=== PATIENT | male | born 1955 | race Caucasian/White ===

== ENCOUNTER 2016-10-28 18:45 | Inpatient (IN) | payer OTHER ==
[~2016-10-28] VITALS: Ht 182.9 cm; Wt 211.1 kg
[~2016-10-28 18:45] MED LIST: ALBUAER2 INH; DILT30TA PO; FURO80TA63 PO; GLYCDRO6 OPR; LATA0.009 OPB; LEVO1TAB35 PO; METO25TA56 PO; METO5TAB25 PO; OXYC-106 PO; POTA20TA16 PO; SYMIN160 INH
--- NOTE | 2016-10-28 21:22 | DIAGNOSTIC IMAGING REPORT ---
CHEST ONE VIEW PORTABLE CLINICAL HISTORY: Chest Pain dyspnea COMPARISON STUDY: 07/15/2016 FINDINGS: Stable cardiomegaly stable pleural parenchymal scarring left hemithorax. Increased prominence of pulmonary vasculature. Tracheostomy tube in position. IMPRESSION: Developing congestive heart failure. This is superimposed upon chronic pleural and parenchymal change Electronically signed by: Yan Escalera M.D. 10/28/2016 9:21 PM Dictated Date/Time: 10/28/2016 9:19 PM
[2016-10-28] MEDS ORDERED: XLTOPS OPB (22:04)
[2016-10-28 22:50] LABS: BASO % 0.2 %; BASO ABS # 0.02 K/uL (0-0.2); COMPLETE YES; EOS % 0.4 %; HEMATOCRIT 37.8 % (42-52); LYMPH ABS # 1.26 K/uL (1.2-3.4); MEAN CELL VOLUME 86.7 fL (80-100); MEAN CORPUSCULAR HEMOGLOBIN 30.3 pg (25-34); MEAN CORPUSCULAR HGB CONC 34.9 g/dl (32-36); MEAN PLATELET VOLUME 10.5 fL (7.4-10.4); MONO % 12.5 %; NEUT % 71.9 %; PLATELET COUNT 138 K/uL (130-400); RED BLOOD COUNT 4.36 M/uL (4.7-6.1); WHITE BLOOD COUNT 9.02 K/uL (4.8-10.8)
[2016-10-28 23:07] LABS: BUN/CREATININE RATIO 22.4 (10-20); CALCIUM 8.8 mg/dl (8.5-10.1); CREATININE 0.93 mg/dl (0.60-1.40); MAGNESIUM 1.7 mg/dl (1.8-2.4); POTASSIUM 3.3 mmol/L (3.5-5.1)
[2016-10-28 23:11] LABS: CKMB/CK RATIO 1.9 (0-3.0)
[2016-10-28] MEDS ORDERED: FUROSEMIDE 40 MG/4 ML VIAL IV STA (23:14)
--- NOTE | 2016-10-28 23:17 | EMERGENCY ROOM VISIT NOTE ---
History Report prepared by Shine: Lucy Wilhelm Under the Supervision of: Dr. Yassine Rios M.D. First contact with patient: 20:47 Chief Complaint: RESPIRATORY PROBLEMS Stated Complaint: TROUBLE BREATHING,RAPID WEIGHT GAIN LAST 3 DAYS Nursing Triage Summary: on friday pt weighed 430 pounds today pt weighed 455 bilateral legs are swollen, cellulitis with drainage hx chf pt reports "feels like im drowning" pt has trach, coughing green sputum, recent course antibiotics for lung infection History of Present Illness The patient is a 61 year old male who presents to the Emergency Room with complaints of worsening respiratory problems that started 3 days ago. His breathing is worse whenever he tried to lie flat. He is also experiencing chest pressure and states that he "feels like he is drowning." The patient states that he has gained 25 lbs over the past 3 days. The patient is experiencing bilateral lower extremity edema, but his right leg is worse than his left. His right leg is also erythematous and seeping. He states that he just finished a 20 day course of antibiotics and steroids because of an infection in his lungs. The patient states that he occasionally has a productive cough with green sputum. The patient last experienced congestive heart failure in 2008. He states that his symptoms feel similar to when he experienced congestive heart failure in the past. The patient is on Xarelto and he states that he is taking his medications are prescribed. Source of History: patient Onset: 3 days Position: chest Quality: other (respiratory problems) Timing: worsening Modifying Factors (Worsening): other (lying flat) Associated Symptoms: + chest pain (pressure), + cough (productive with green sputum) Note: gained 25 lbs in 3 days, bilateral lower extremity edema, right leg erythema, right leg is seeping Review of Systems See HPI for pertinent positives & negatives. A total of 10 systems reviewed and were otherwise negative. Past Medical & Surgical Medical Problems: (1) Cellulitis (2) Cellulitis and abscess of leg (3) COPD (chronic obstructive pulmonary disease) (4) COPD exacerbation (5) Diabetes (6) Dyspnea (7) Fever chills (8) HCAP (healthcare-associated pneumonia) (9) Hemoptysis (10) Hyperlipidemia (11) Morbid obesity (12) PNA (pneumonia) (13) Sepsis due to Streptococcus pneumoniae (14) SOB (shortness of breath) Surgical Problems: (1) Tracheostomy in place Family History Diabetes mellitus Heart disease Social History Smoking Status: Former Smoker Drug Use: none Marital Status: Occupation Status: unemployed Current/Historical Medications Scheduled Aspirin (Aspirin 81), 81 MG PO DAILY Atorvastatin (Lipitor), 80 MG PO DAILY Bacitracin (Topical) (Bacitracin), 1 APPLN TOP DAILY Beclomethasone Dipropionate (N (Qnasl), 1 SPRY SIMBA DAILY Budesonide (Pulmicort Respules 0.5MG/2ML), 2 ML INH BID Desloratadine (Clarinex), 5 MG PO DAILY Diltiazem Hcl (Cardizem), 30 MG PO QID Dorzolamide Hcl (Trusopt Oph), 1 DROPS OP BID Fish Oil ([place]-3), 1 CAP PO DAILY Furosemide (Lasix), 80 MG PO BID Glucagon (Glucagon Emergency Kit), 1 DOSE INJ UD Guaifenesin (Mucinex Maximum Strength), 1,200 MG PO BID Insulin Aspart (Novolog Flexpen), 81 UNITS SQ QAM Insulin Aspart (Novolog Flexpen), 77 UNITS SQ QPM Insulin Aspart (Novolog Flexpen), 44 UNITS SQ DAILY Insulin Glargine (Lantus Solostar), 80 UNITS SC AMPM Ipratropium-Albuterol (Duoneb), 1 TREATMENT INH Q4H Isosorbide Mononitrate (Isosorbide Mononitrate ER), 30 MG PO DAILY Latanoprost (Latanoprost), 1 DROP OPB HS Lisinopril (Zestril), 10 MG PO DAILY Magnesium Oxide (Mag-Ox), 400 MG PO BID Metolazone (Zaroxolyn), 5 MG PO DAILY Metoprolol Tartrate (Lopressor) (Lopressor), 25 MG PO BID Multivitamins/Minerals (Mvi With Minerals), 1 TAB PO DAILY Nitroglycerin (Nitrostat), 1 TAB SL UD Potassium Ext Rel (Klor-Con), 60 MEQ PO BID Rivaroxaban (Xarelto), 20 MG PO DAILY Spironolactone (Aldactone), 25 MG PO BID Scheduled PRN Albuterol Hfa (Ventolin Hfa), 1 PUFFS INH QID PRN for SOB/Wheezing Iwjihadi-Lnhtanpqfxyy-Illvhjgz (Artificial Tears), 1 DROP OPR HS PRN for DRYNESS Lorazepam (Lorazepam), 1 MG PO QID PRN for Anxiety Oxycodone/Acetaminophen 10MG/325MG (Percocet 10MG/325MG), 1 TAB PO Q8 PRN for Pain Allergies Coded Allergies: [place] (Verified Allergy, Severe, Difficulty breathing, 07/15/16) Sodium Hypochlorite (Verified Allergy, Unknown, HIVES AND RESPIRATORY DIFFICULTY FROM CLOROX, 07/15/16) Physical Exam Vital Signs Date Time Temp Pulse Resp B/P Pulse Ox O2 Delivery O2 Flow Rate FiO2 10/29/16 00:30 92 20 138/91 94 Room Air 10/28/16 22:47 91 10/28/16 22:41 93 20 171/74 95 Room Air 10/28/16 20:49 85 20 179/100 96 Room Air 10/28/16 18:57 Room Air 10/28/16 18:54 37.0 88 20 155/76 96 Room Air Physical Exam GENERAL: Patient is disheveled and unkempt appearing and in moderate distress. Patient is morbidly obese. HEENT: No acute trauma, normocephalic atraumatic, mucous membranes moist, no nasal congestion, no scleral icterus. NECK: Midline trach in place, no stridor, no adenopathy, no meningismus, trachea is midline. LUNGS: Dyspneic. Distant lung sounds. Difficult to appreciate. HEART: Regular rate and rhythm. No murmurs, rubs, gallops appreciated. ABDOMEN: Soft, nontender, distant bowel sounds, no masses appreciated, no peritonitis. BACK: No midline tenderness, no CVA tenderness EXTREMITIES: Normal motion all extremities, no cyanosis, right leg 4+ edema, left leg 3+ edema, fluid seeping from multiple places on right leg. NEUROLOGIC: Alert and oriented, no acute motor or sensory deficits, no focal weakness, cranial nerves grossly intact. SKIN: No rash, no jaundice, no diaphoresis. Medical Decision & Procedures ER Provider Diagnostic Interpretation: X ray results are stated below per my interpretation and the radiologist's interpretation. CHEST ONE VIEW PORTABLE IMPRESSION: Developing congestive heart failure. This is superimposed upon chronic pleural and parenchymal change Electronically signed by: Yan Escalera M.D. 10/28/2016 9:21 PM Dictated Date/Time: 10/28/2016 9:19 Laboratory Results 10/28/16 22:31 Red Blood Count 4.36, Mean Corpuscular Volume 86.7, Mean Corpuscular Hemoglobin 30.3, Mean Corpuscular Hemoglobin Concent 34.9, Mean Platelet Volume 10.5, Neutrophils (%) (Auto) 71.9, Lymphocytes (%) (Auto) 14.0, Monocytes (%) (Auto) 12.5, Eosinophils (%) (Auto) 0.4, Basophils (%) (Auto) 0.2, Neutrophils # (Auto ) 6.48, Lymphocytes # (Auto) 1.26, Monocytes # (Auto) 1.13, Eosinophils # (Auto ) 0.04, Basophils # (Auto) 0.02 10/28/16 22:31 Test 10/28/16 22:31 White Blood Count 9.02 K/uL (4.8-10.8) Red Blood Count 4.36 M/uL (4.7-6.1) Hemoglobin 13.2 g/dL (14.0-18.0) Hematocrit 37.8 % (42-52) Mean Corpuscular Volume 86.7 fL (80-100) Mean Corpuscular Hemoglobin 30.3 pg (25-34) Mean Corpuscular Hemoglobin Concent 34.9 g/dl (32-36) Platelet Count 138 K/uL (130-400) Mean Platelet Volume 10.5 fL (7.4-10.4) Neutrophils (%) (Auto) 71.9 % Lymphocytes (%) (Auto) 14.0 % Monocytes (%) (Auto) 12.5 % Eosinophils (%) (Auto) 0.4 % Basophils (%) (Auto) 0.2 % Neutrophils # (Auto) 6.48 K/uL (1.4-6.5) Lymphocytes # (Auto) 1.26 K/uL (1.2-3.4) Monocytes # (Auto) 1.13 K/uL (0.11-0.59) Eosinophils # (Auto) 0.04 K/uL (0-0.5) Basophils # (Auto) 0.02 K/uL (0-0.2) RDW Standard Deviation 43.3 fL (36.4-46.3) RDW Coefficient of Variation 13.7 % (11.5-14.5) Immature Granulocyte % (Auto) 1.0 % Immature Granulocyte # (Auto) 0.09 K/uL (0.00-0.02) Anion Gap 11.0 mmol/L (3-11) Est Creatinine Clear Calc Drug Dose 154.2 ml/min Estimated GFR () 102.3 Estimated GFR (Non- 88.3 BUN/Creatinine Ratio 22.4 (10-20) Calcium Level 8.8 mg/dl (8.5-10.1) Magnesium Level 1.7 mg/dl (1.8-2.4) Total Creatine Kinase 157 U/L (39-308) Creatine Kinase MB 3.0 ng/ml (0.5-3.6) Creatine Kinase MB Ratio 1.9 (0-3.0) Troponin I 0.022 ng/ml (0-0.045) Pro-B-Type Natriuretic Peptide 292 pg/ml (0-900) Laboratory results as reviewed by me. Medications Administered Medications (Trade) Dose Ordered Sig/Saige Route Start Time Stop Time Status Last Admin Dose Admin Furosemide (Lasix Inj) 80 mg NOW STAT IV 10/28/16 23:14 10/28/16 23:15 DC 10/28/16 23:26 80 MG ECG Indication: SOB/dyspnea Rate (beats per minute): 86 Rhythm: atrial fibrillation Findings: no acute ischemic change Comparison ECG Date: 07/15/2016 Change: no significant change ED Course 2049: The patient was evaluated in room C3. A complete history and physical exam was performed. 2223: I reassessed the patient. We have been unable to get an IV site. I discussed the option of a central line, but he denied. I also discussed the option of intramuscular Lasix and then sending him home, but he became irate with the option of outpatient treatment. The patient requested having a PICC line placed emergently, so IV team has been called. 2242: I reevaluated the patient. IV team is now at bedside. 2310: Upon reevaluation, the patient is resting comfortably. Discussed results and treatment plan with the patient. He verbalized understanding and agreement with the treatment plan. The patient will be evaluated for further management. 2313: Discussed the patient's case with Dr.Pasquariello Del [facility] [place]. The patient will be evaluated for further treatment and disposition. 2314: Ordered Lasix Inj 80 mg IV Medical Decision Differential: Infectious, Reactive Airway Disease, Pneumonia, Pneumothorax, COPD , CHF, ACS, Pulmonary Embolism, MSK, GI, Dissection, amongst other etiologies entertained. Morbidly obese 61 yr old male who notes he gained 25 pounds in just 3 days. Quite swollen right leg which he notes usually gets swollen with his CHF exacerbations. Lungs very distant and essentially impossible to evaluate well. He has fluid draining from right leg with erythema though seems more vascular congestion than infectious. Already on xarelto thus will hold on US of leg at this time as I do not feel his symptoms PE related and he makes clear this is like his previous CHF exacerbations. No evidence of ACS. Difficulty obtaining IV labs. Once these returned given IV lasix. At patient request consulted hospitalist for further evaluation. Consults Time Called: [id number] Consulting Physician: Dr. Yaya VILLANUEVA Returned Call: [phone] Discussed the patient's case with Dr.Pasquariello Maria Eugenia VILLANUEVA. The patient will be evaluated for further treatment and disposition. Impression Primary Impression: Congestive heart failure Additional Impressions: Morbid obesity Weight gain Scribe Attestation The scribe's documentation has been prepared under my direction and personally reviewed by me in its entirety. I confirm that the note above accurately reflects all work, treatment, procedures, and medical decision making performed by me. Departure Information Dispostion Being Evaluated By Hospitalist Referrals Christofer Hanley DO (PCP) Patient Instructions My [facility] Problem Qualifiers Primary Impression: Congestive heart failure Congestive heart failure type: unspecified congestive heart failure type Congestive heart failure chronicity: acute on chronic Qualified Codes: I50.9 - Heart failure, unspecified Additional Impressions: Morbid obesity Obesity type: unspecified obesity type Qualified Codes: E66.01 - Morbid ( severe) obesity due to excess calories
[2016-10-29] VITALS (14 sets, daily range): BP systolic 113–193; BP diastolic 54–82; PULSE 75–108; TEMP 36.7–37.1; O2SAT 93–99; BMI 61.9; BMI 63.6
[2016-10-29] MEDS ORDERED: NITROGLYCERIN 0.4 MG SL PER TAB CHARGE SL SCH
[2016-10-29] MEDS ORDERED: ACETAMINOPHEN 325 MG TAB PO PRN
[2016-10-29] MEDS ORDERED: POLYETHYLENE (MIRALAX) 17 GM PACK PO PRN ×2
[2016-10-29] MEDS ORDERED: ONDANSETRON INJ 2 MG/ML 2 ML VIAL IV PRN ×2
[2016-10-29] MEDS ORDERED: NITROGLYCERIN 0.4 MG SL PER TAB CHARGE SL PRN
[2016-10-29] MEDS ORDERED: ALBUTEROL HFA 8 GM INHALER INH PRN
[2016-10-29] MEDS ORDERED: MAGNESIUM SULFATE 1GM / D5W 1 GM in PREMIXED IN D5W 100 ML IV STA
[2016-10-29] MEDS ORDERED: ALUMINUM/MAGNESIUM/SIMETH (MAALOX MAX) 30 ML UDC PO PRN ×2
[2016-10-29] MEDS ORDERED: MAGNESIUM HYDROXIDE SUSP 30 ML UDC PO PRN ×2
--- NOTE | 2016-10-29 00:47 | History and Physical ---
History & Physical Date & Time of Service: Oct 29, 2016 at 00:46 Chief Complaint: Trouble Breathing,Rapid Weight Gain Last 3 Days Primary Care Physician: Christofer Hanley DO History of Present Illness Source: patient, family This is a 61 y/o M with h/o of Afib on xarelto, ALLIE s/p Trach, IDDM, Chronic Cellulitis, CHF, Morbid obesity, CAD s/p CABG and stents, Chronic LE edema, COPD who presents with a 3 day history of increasing shortness of breath and 25 lb weight gain. He reports that his right lower leg is edematous and is seeping. His notes that they have been instructed to go to the hospital when he gains significant amount of weight. He denies chest pain, fevers, chills, nausea, vomiting, abdominal pain, changes in bowel habits, melena, hematuria, hematochezia etc. He has been Seen by ID outpatient for cellulitis in the past. Past Medical/Surgical History Medical Problems: (1) COPD (chronic obstructive pulmonary disease) Status: Chronic (2) Diabetes Status: Chronic (3) Hyperlipidemia Status: Chronic (4) Morbid obesity Status: Chronic Surgical Problems: (1) Tracheostomy in place Status: Chronic Family History Diabetes mellitus Heart disease Social History Smoking Status: Former Smoker Drug Use: none Marital Status: Housing status: lives with family Occupational Status: unemployed Multi-Drug Resistant Organisms History of MDRO: Yes Type of MDRO: MRSA Allergies Coded Allergies: [place] (Verified Allergy, Severe, Difficulty breathing, 07/15/16) Sodium Hypochlorite (Verified Allergy, Unknown, HIVES AND RESPIRATORY DIFFICULTY FROM CLOROX, 07/15/16) Home Medications Scheduled Aspirin (Aspirin 81), 81 MG PO DAILY Atorvastatin (Lipitor), 80 MG PO DAILY Bacitracin (Topical) (Bacitracin), 1 APPLN TOP DAILY Beclomethasone Dipropionate (N (Qnasl), 1 SPRY SIMBA DAILY Budesonide (Pulmicort Respules 0.5MG/2ML), 2 ML INH BID Desloratadine (Clarinex), 5 MG PO DAILY Diltiazem Hcl (Cardizem), 30 MG PO QID Dorzolamide Hcl (Trusopt Oph), 1 DROPS OP BID Fish Oil ([place]-3), 1 CAP PO DAILY Furosemide (Lasix), 80 MG PO BID Glucagon (Glucagon Emergency Kit), 1 DOSE INJ UD Guaifenesin (Mucinex Maximum Strength), 1,200 MG PO BID Insulin Aspart (Novolog Flexpen), 81 UNITS SQ QAM Insulin Aspart (Novolog Flexpen), 77 UNITS SQ QPM Insulin Aspart (Novolog Flexpen), 44 UNITS SQ DAILY Insulin Glargine (Lantus Solostar), 80 UNITS SC AMPM Ipratropium-Albuterol (Duoneb), 1 TREATMENT INH Q4H Isosorbide Mononitrate (Isosorbide Mononitrate ER), 30 MG PO DAILY Latanoprost (Latanoprost), 1 DROP OPB HS Lisinopril (Zestril), 10 MG PO DAILY Magnesium Oxide (Mag-Ox), 400 MG PO BID Metolazone (Zaroxolyn), 5 MG PO DAILY Metoprolol Tartrate (Lopressor) (Lopressor), 25 MG PO BID Multivitamins/Minerals (Mvi With Minerals), 1 TAB PO DAILY Nitroglycerin (Nitrostat), 1 TAB SL UD Potassium Ext Rel (Klor-Con), 60 MEQ PO BID Rivaroxaban (Xarelto), 20 MG PO DAILY Spironolactone (Aldactone), 25 MG PO BID Scheduled PRN Albuterol Hfa (Ventolin Hfa), 1 PUFFS INH QID PRN for SOB/Wheezing Lzexaeke-Qifaflzbdhzb-Hbiaqfnc (Artificial Tears), 1 DROP OPR HS PRN for DRYNESS Lorazepam (Lorazepam), 1 MG PO QID PRN for Anxiety Oxycodone/Acetaminophen 10MG/325MG (Percocet 10MG/325MG), 1 TAB PO Q8 PRN for Pain Review of Systems Constitutional: No chills, No fever Respiratory: + dyspnea at rest, + dyspnea on exertion, + shortness of breath, No cough Cardiovascular: + orthopnea, No chest pain Abdomen: No nausea, No pain, No vomiting Musculoskeletal: + calf pain, + swelling Genitourinary - Male: No dysuria, No hematuria Physical Exam Vital Signs Date Time Temp Pulse Resp B/P Pulse Ox O2 Delivery O2 Flow Rate FiO2 10/29/16 00:44 91 10/29/16 00:30 92 20 138/91 94 Room Air 10/28/16 22:41 93 20 171/74 95 Room Air 10/28/16 20:49 85 20 179/100 96 Room Air 10/28/16 18:57 Room Air 10/28/16 18:54 37.0 88 20 155/76 96 Room Air General Appearance: no apparent distress, + obese Eyes: normal inspection, PERRL, EOMI ENT: hearing grossly normal Neck: + pertinent finding (trach collar in place) Respiratory/Chest: + decreased breath sounds, + crackles Cardiovascular: regular rate, rhythm Abdomen/GI: normal bowel sounds, non tender Extremities/Musculoskelatal: + inflammation, + pedal edema (2+ pitting edema on RLE below knee, erythematous, ), + swelling, + pertinent finding (poorly kept feet, with multiple areas of fungal growth/thickened skin) Neurologic/Psych: alert, + depressed affect Diagnostics Laboratory Results Results Past 24 Hours Test 10/28/16 22:31 Range/Units White Blood Count 9.02 4.8-10.8 K/uL Red Blood Count 4.36 4.7-6.1 M/uL Hemoglobin 13.2 14.0-18.0 g/dL Hematocrit 37.8 42-52 % Mean Corpuscular Volume 86.7 80-100 fL Mean Corpuscular Hemoglobin 30.3 25-34 pg Mean Corpuscular Hemoglobin Concent 34.9 32-36 g/dl Platelet Count 138 130-400 K/uL Mean Platelet Volume 10.5 7.4-10.4 fL Neutrophils (%) (Auto) 71.9 % Lymphocytes (%) (Auto) 14.0 % Monocytes (%) (Auto) 12.5 % Eosinophils (%) (Auto) 0.4 % Basophils (%) (Auto) 0.2 % Neutrophils # (Auto) 6.48 1.4-6.5 K/uL Lymphocytes # (Auto) 1.26 1.2-3.4 K/uL Monocytes # (Auto) 1.13 0.11-0.59 K/uL Eosinophils # (Auto) 0.04 0-0.5 K/uL Basophils # (Auto) 0.02 0-0.2 K/uL RDW Standard Deviation 43.3 36.4-46.3 fL RDW Coefficient of Variation 13.7 11.5-14.5 % Immature Granulocyte % (Auto) 1.0 % Immature Granulocyte # (Auto) 0.09 0.00-0.02 K/uL Sodium Level 130 136-145 mmol/L Potassium Level 3.3 3.5-5.1 mmol/L Chloride Level 89 98-107 mmol/L Carbon Dioxide Level 30 21-32 mmol/L Anion Gap 11.0 3-11 mmol/L Blood Urea Nitrogen 21 7-18 mg/dl Creatinine 0.93 0.60-1.40 mg/dl Est Creatinine Clear Calc Drug Dose 154.2 ml/min Estimated GFR () 102.3 Estimated GFR (Non- 88.3 BUN/Creatinine Ratio 22.4 10-20 Random Glucose 203 70-99 mg/dl Calcium Level 8.8 8.5-10.1 mg/dl Magnesium Level 1.7 1.8-2.4 mg/dl Total Creatine Kinase 157 39-308 U/L Creatine Kinase MB 3.0 0.5-3.6 ng/ml Creatine Kinase MB Ratio 1.9 0-3.0 Troponin I 0.022 0-0.045 ng/ml Pro-B-Type Natriuretic Peptide 292 0-900 pg/ml Impression Assessment and Plan This is a 61 y/o M with multiple comorbidities who presents with 25 lb weight over the last 3 days as well as pain and edema of his RLE Mild CHF exacerbation Lasix 40 mg BID Daily weights Strict I/O Avoid fluids X-ray reviewed with congestive findings ECHO in the past (may 2016) has not confirmed this diagnosis, however, he is morbidly obese making the studies extremely technically difficult. Continue aldactone, metalozone. Hold furosemide PO Trend BMP/ electrolytes Does have chronic Hyponatremia- could be an indication of CHF (poor prognosis?) Hypokalemia/hypomagnesemia oral replacement hold lisinopril RLE cellulitis, recurrent Will treat with Daptomycin given recurrent history ID consult Wound culture Blood cultures pending AFib- continue Xarelto, Dilitiazem and metoprolol ALLIE- s/p Trach, uses special oxygenation system at night- discussed with Respiratory Diabetes: patient is on significant amounts of Lantus and Aspart. Would perhaps benefit from Increasing Lantus and decreasing the total number of short acting units CAD- Aspirin, Lipitor HTN- hold lisinopril COPD- compensated- continue pulmicort and duoneb VTE Prophylaxis VTE Risk Assessment Done? Y/N: Yes Risk Level: Moderate Assessment and Plan Attending Addendum: I have physically seen and examined this patient, have directed their medical care, have supervised the medical residents activities, and agree with the H&P as noted above, with the following changes: The patient is awake, well-developed and adequately nourished, alert and oriented 3, normocephalic and atraumatic, lying in bed and in no acute distress. HEENT--PERRL, EOMI, mucous membranes and oropharynx dry. Neck--supple, no JVD or bruits, thyroid normal, trachea midline, no adenopathy. Heart--normal S1 and S2, no extra beats, no murmurs, rubs or gallops. Lungs--decreased breath sounds throughout, no respiratory distress, no accessory muscle use. Abdomen--normal bowel sounds and soft, nontender and nondistended, no hernias or masses, no organomegaly. Extremities--no cyanosis, clubbing. Right lower extremity with 2-3+ pretibial and pedal pitting Edema. There are good distal pulses b/l. Dermatologic--erythema and warmth of right lower extremity. Neurologic--cranial nerves II through XII grossly intact, motor and sensory examination normal. Psychiatric--normal affect. Assessment and Plan: Ex Right lower extremity cellulitis-placed on daptomycin IV. Follow wound and blood cultures. Consult infectious disease and wound care nurse. Order three- phase bone scan limited to assess for possible osteomyelitis. CAD/hypertension/atrial fibrillation/diastolic CHF/hypokalemia/hypomagnesemia-- continue current dosing of Xarelto, diltiazem, metoprolol, aspirin, Aldactone and metolazone. Patient has received Lasix 80 mg IV in the emergency department , and will continue Lasix 80 mg IV twice a day until appropriate response, then convert back to oral. Replace potassium and magnesium with oral supplementation. Follow serial BMP and magnesium levels. Diabetes mellitus--continue Lantus at current dosing. Hold standing orders for NovoLog. Is on Accu-Cheks before meals and at bedtime with NovoLog coverage. COPD--continue Pulmicort and DuoNeb's. Hypercholesterolemia--continue atorvastatin.
[2016-10-29] MEDS ORDERED: POTASSIUM CHLR 10 MEQ / WTR 10 MEQ in PREMIXED WATER 100 ML IV SCH (00:48)
[2016-10-29] MEDS ORDERED: POTASSIUM CHLORIDE 10 MEQ TABCR PO STA (01:57)
[2016-10-29] MEDS ORDERED: MAGNESIUM OXIDE 400 MG TAB PO STA (01:57)
[2016-10-29] MEDS ORDERED: NURSING VERBAL MED ORDER ONE (02:00)
[2016-10-29] MEDS: LORAZEPAM 1 MG TAB PO PRN ×3 (02:30→21:53)
[2016-10-29] MEDS: OXYCODONE/ACETAMINOPHEN 10/325MG TAB PO PRN ×2 (02:31→21:54)
[2016-10-29] MEDS ORDERED: GLUCAGON FOR INJ 1 MG VIAL SQ PRN (02:45)
[2016-10-29] MEDS ORDERED: GLUCOSE 10 TABS/TUBE PO PRN (02:45)
[2016-10-29] MEDS ORDERED: GLUCOSE 40% GEL 15 GM TUBE PO PRN (02:45)
[2016-10-29] MEDS ORDERED: DEXTROSE 50% 50 ML SYR IV PRN (02:45)
[2016-10-29] MEDS: INSULIN ASPART 100 UNITS/ML 3 ML PEN SC SCH ×5 (03:12→21:52)
[2016-10-29] MEDS: ALBUT/IPRATROP 3MG/0.5MG NEB 3 ML VIAL INH SCH ×7 (03:31→23:13)
[2016-10-29] MEDS: DAPTOMYCIN IV SCH (06:37)
[2016-10-29] MEDS: SODIUM CHLORIDE 0.9% IV SCH (06:37)
[2016-10-29] MEDS: BUDESONIDE 0.5 MG/2 ML VIAL (PULMICORT) INH SCH ×2 (07:15→19:33)
[2016-10-29] MEDS ORDERED: INFLUENZA VIRUS QUAD VACCINE 0.5 ML SYR IM. ONE (08:00)
[2016-10-29] MEDS ORDERED: INFLUENZA ADMINISTRATION CHARGE ONE (08:00)
[2016-10-29] MEDS: INSULIN GLARGINE SOLOSTAR 100 UNITS/ML 3 ML PEN SC SCH ×2 (08:10→21:52)
[2016-10-29] MEDS: ASPIRIN 81 MG ECTAB PO SCH (08:14)
[2016-10-29] MEDS: SPIRONOLACTONE 25 MG TAB PO SCH ×2 (08:15→17:04)
[2016-10-29] MEDS: METOLAZONE 5 MG TAB PO SCH (08:15)
[2016-10-29] MEDS: ISOSORBIDE MONONITRATE 30 MG TABCR PO SCH (08:15)
[2016-10-29] MEDS: CEROVITE ADV FORMULA TAB PO SCH (08:16)
[2016-10-29] MEDS: DILTIAZEM HCL 30 MG TAB PO SCH ×4 (08:17→21:52)
[2016-10-29] MEDS: ATORVASTATIN 40 MG TAB PO SCH (08:17)
[2016-10-29] MEDS: METOPROLOL TARTRATE 25 MG TAB PO SCH ×2 (08:18→21:53)
[2016-10-29] MEDS: DORZOLAMIDE HCL 2% OPH SOLN 10 ML BTL OP SCH ×2 (08:19→21:51)
[2016-10-29] MEDS ORDERED: MAGNESIUM OXIDE 400 MG TAB PO SCH (09:00)
[2016-10-29] MEDS ORDERED: POTASSIUM CHLORIDE 20 MEQ TABCR PO SCH ×3 (09:00→21:00)
[2016-10-29] MEDS ORDERED: FUROSEMIDE INJ 40 MG in SYRINGE 0 ML IV SCH (09:00)
[2016-10-29] MEDS: FUROSEMIDE INJ 80 MG in SYRINGE 0 ML IV SCH ×2 (09:03→13:10)
[2016-10-29] MEDS: LISINOPRIL 10 MG TAB PO SCH (09:04)
[2016-10-29 10:15] LABS: ESTIMATED AVERAGE GLUCOSE 180 mg/dl; HA1C FLAG Normal (Normal)
[2016-10-29 10:24] LABS: BUN/CREATININE RATIO 19.5 (10-20); C-REACTIVE PROTEIN 0.94 mg/dl (0-0.29); CALCIUM 9.1 mg/dl (8.5-10.1); MAGNESIUM 1.7 mg/dl (1.8-2.4)
[2016-10-29 10:27] LABS: ALB/GLOB RATIO 1.2 (0.9-2)
--- NOTE | 2016-10-29 10:31 | Family Medicine Progress Note ---
Progress Note Date of Service Oct 29, 2016. Subjective Pt evaluation today including: conversation w/ patient, physical exam, chart review, lab review, review of studies, review of inpatient medication list Voiding: no voiding problems (increased due to lasix) Mr Tim feels much better since coming in through the ER. His shortness of breath has improved but not noticed much difference in his leg swelling. He denies any fever or chills. He denies any chest pain, palpitations. He does have orthopnea. All Other Systems: Reviewed and Negative Medications Current Inpatient Medications Medications (Trade) Dose Ordered Sig/Saige Route Start Time Stop Time Status Last Admin Dose Admin Acetaminophen (Tylenol Tab) 650 mg Q4H PRN PO 10/29/16 00:00 11/28/16 00:00 Al Hydrox/Mg Hydrox/Simethicone (Maalox Max Susp) 15 ml Q4H PRN PO 10/29/16 00:00 11/28/16 00:00 Magnesium Hydroxide (Milk Of Magnesia Susp) 30 ml Q6H PRN PO 10/29/16 00:00 11/28/16 00:00 Polyethylene (Miralax Powder Packet) 17 gm DAILY PRN PO 10/29/16 00:00 11/28/16 00:00 Ondansetron HCl (Zofran Inj) 4 mg Q6H PRN IV 10/29/16 00:00 11/28/16 00:00 Nitroglycerin (Nitrostat Tab) 0.4 mg UD PRN SL 10/29/16 00:00 11/28/16 00:00 Albuterol (Ventolin Hfa Inhaler) 1 puffs QID PRN INH 10/29/16 00:00 11/28/16 00:00 Aspirin (Ecotrin Tab) 81 mg DAILY PO 10/29/16 09:00 11/28/16 08:59 10/29/16 08:14 81 MG Atorvastatin Calcium (Lipitor Tab) 80 mg DAILY PO 10/29/16 09:00 11/28/16 08:59 10/29/16 08:17 80 MG Budesonide (Pulmicort Respules 0.5MG/ 2ML Neb Soln) 1 mg BIDR INH 10/29/16 08:00 11/28/16 07:59 Diltiazem HCl (Cardizem Tab) 30 mg QID PO 10/29/16 09:00 11/28/16 08:59 10/29/16 08:17 30 MG Dorzolamide HCl (Trusopt 2% Oph Soln) 1 drops BID OP 10/29/16 09:00 11/28/16 08:59 10/29/16 08:19 1 DROPS Albuterol/ Ipratropium (Duoneb) 3 ml Q4R INH 10/29/16 00:00 11/28/16 00:00 10/29/16 07:10 3 ML Isosorbide Mononitrate (Imdur Ext Rel Tab) 30 mg DAILY PO 10/29/16 09:00 11/28/16 08:59 10/29/16 08:15 30 MG Latanoprost (Xalatan Oph Soln) 1 drops HS OPB 10/29/16 21:00 11/28/16 20:59 Lisinopril (Zestril Tab) 10 mg DAILY PO 10/29/16 09:00 11/28/16 08:59 Future Hold 10/29/16 09:04 10 MG Lorazepam (Ativan Tab) 1 mg QID PRN PO 10/29/16 00:00 11/28/16 00:00 10/29/16 02:30 1 MG Magnesium Oxide (Mag-Ox Tab) 400 mg BID PO 10/29/16 09:00 11/28/16 08:59 10/29/16 08:16 400 MG Metolazone (Zaroxolyn Tab) 5 mg DAILY PO 10/29/16 09:00 11/28/16 08:59 10/29/16 08:15 5 MG Metoprolol Tartrate (Lopressor Tab) 25 mg BID PO 10/29/16 09:00 11/28/16 08:59 10/29/16 08:18 25 MG Multivitamins/ Minerals (Multivitamin W/ Minerals Tab) 1 tab DAILY PO 10/29/16 09:00 11/28/16 08:59 10/29/16 08:16 1 TAB Oxycodone/ Acetaminophen (Percocet 10-325MG Tab) 1 tab Q8 PRN PO 10/29/16 00:00 11/12/16 00:00 10/29/16 02:31 1 TAB Potassium Chloride (Klor-Con Tab) 60 meq BID PO 10/29/16 09:00 11/28/16 08:59 10/29/16 08:17 60 MEQ Rivaroxaban (Xarelto Tab) 20 mg QDD PO 10/29/16 16:45 11/28/16 16:44 Spironolactone (Aldactone Tab) 25 mg BID17 PO 10/29/16 09:00 11/28/16 08:59 10/29/16 08:15 25 MG Insulin Glargine (Lantus Solostar Pen) 80 unit BID SC 10/29/16 09:00 11/28/16 08:59 10/29/16 08:10 80 UNIT Insulin Aspart SLIDING SCALE G... ACHS SC 10/29/16 07:00 11/28/16 06:59 10/29/16 08:10 6 UNITS Daptomycin/Sodium Chloride (Cubicin IV/Nss 50ml) 66.6 ml @ 100 mls/hr DAILY@0600 IV 10/29/16 06:00 11/08/16 05:59 10/29/16 06:37 100 MLS/HR Glucose (Glucose 40% Gel) 15-30 GRAMS 15 GRAMS... UD PRN PO 10/29/16 02:45 11/28/16 02:44 Glucose (Glucose Chew Tab) 4-8 Tablets 4 Tabl... UD PRN PO 10/29/16 02:45 11/28/16 02:44 Dextrose (Dextrose 50% 50ML Syringe) 25-50ML OF 50% DW IV FOR... UD PRN IV 10/29/16 02:45 11/28/16 02:44 Glucagon 1 mg 1 mg UD PRN SQ 10/29/16 02:45 11/28/16 02:44 Furosemide/Syringe (Lasix Inj/ Syringe) 8 ml @ 4 mls/min BID@0900,1400 IV 10/29/16 09:00 11/28/16 08:59 10/29/16 09:03 4 MLS/MIN Objective Vital Signs Date Time Temp Pulse Resp B/P Pulse Ox O2 Delivery O2 Flow Rate FiO2 10/29/16 07:59 36.7 108 26 141/82 95 10/29/16 07:10 97 20 94 Room Air 10/29/16 04:15 95 Trach Collar 28 10/29/16 03:31 105 20 95 Trach Collar 10.0 28 10/29/16 03:20 108 26 153/82 95 Trach Collar 28 10/29/16 02:00 36.7 92 24 193/75 95 Room Air 10/29/16 01:51 93 24 164/83 95 10/29/16 00:30 92 20 138/91 94 Room Air 10/28/16 22:47 91 10/28/16 22:41 93 20 171/74 95 Room Air 10/28/16 20:49 85 20 179/100 96 Room Air 10/28/16 18:57 Room Air 10/28/16 18:54 37.0 88 20 155/76 96 Room Air Physical Exam General Appearance: no apparent distress, + obese Eyes: normal inspection (pupils equal) ENT: + pertinent finding (tracheostomy noted, placed for ALLIE) Neck: supple (unable to assess JVD due to large neck size) Respiratory/Chest: no respiratory distress, no accessory muscle use, + decreased breath sounds (throughout, difficult to assess due to obesity but not apparent crackles or wheezing, increased expiratory stage) Cardiovascular: regular rate, rhythm (very quiet heart sounds with no appreciable murmur) Abdomen: normal bowel sounds, non tender, soft, + pertinent finding (obese) Extremities: + pedal edema (up to abdomen, 3+ bilaterally) Neurologic/Psychiatric: 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 as tested (no facial droop), alert, oriented x 3, + sensory deficit (peripheral neuropathy with numbness and pain), + pertinent finding (moving all 4 limbs equally no subjective weakness) Skin: + pertinent finding (increased dark erythema of right leg, chronic cellulitis managed by ID) Laboratory Results 10/28/16 22:31 Red Blood Count 4.36, Mean Corpuscular Volume 86.7, Mean Corpuscular Hemoglobin 30.3, Mean Corpuscular Hemoglobin Concent 34.9, Mean Platelet Volume 10.5, Neutrophils (%) (Auto) 71.9, Lymphocytes (%) (Auto) 14.0, Monocytes (%) (Auto) 12.5, Eosinophils (%) (Auto) 0.4, Basophils (%) (Auto) 0.2, Neutrophils # (Auto ) 6.48, Lymphocytes # (Auto) 1.26, Monocytes # (Auto) 1.13, Eosinophils # (Auto ) 0.04, Basophils # (Auto) 0.02 10/29/16 09:52 Test 10/28/16 22:31 10/29/16 06:41 10/29/16 09:52 White Blood Count 9.02 K/uL (4.8-10.8) Red Blood Count 4.36 M/uL (4.7-6.1) Hemoglobin 13.2 g/dL (14.0-18.0) Hematocrit 37.8 % (42-52) Mean Corpuscular Volume 86.7 fL (80-100) Mean Corpuscular Hemoglobin 30.3 pg (25-34) Mean Corpuscular Hemoglobin Concent 34.9 g/dl (32-36) Platelet Count 138 K/uL (130-400) Mean Platelet Volume 10.5 fL (7.4-10.4) Neutrophils (%) (Auto) 71.9 % Lymphocytes (%) (Auto) 14.0 % Monocytes (%) (Auto) 12.5 % Eosinophils (%) (Auto) 0.4 % Basophils (%) (Auto) 0.2 % Neutrophils # (Auto) 6.48 K/uL (1.4-6.5) Lymphocytes # (Auto) 1.26 K/uL (1.2-3.4) Monocytes # (Auto) 1.13 K/uL (0.11-0.59) Eosinophils # (Auto) 0.04 K/uL (0-0.5) Basophils # (Auto) 0.02 K/uL (0-0.2) RDW Standard Deviation 43.3 fL (36.4-46.3) RDW Coefficient of Variation 13.7 % (11.5-14.5) Immature Granulocyte % (Auto) 1.0 % Immature Granulocyte # (Auto) 0.09 K/uL (0.00-0.02) Total Creatine Kinase 157 U/L (39-308) Creatine Kinase MB 3.0 ng/ml (0.5-3.6) Creatine Kinase MB Ratio 1.9 (0-3.0) Troponin I 0.022 ng/ml (0-0.045) Pro-B-Type Natriuretic Peptide 292 pg/ml (0-900) Bedside Glucose 196 mg/dl (70-99) Anion Gap 14.0 mmol/L (3-11) Est Creatinine Clear Calc Drug Dose 144.4 ml/min Estimated GFR () 93.7 Estimated GFR (Non- 80.9 BUN/Creatinine Ratio 19.5 (10-20) Estimated Average Glucose 180 mg/dl Hemoglobin A1c 7.9 % (4.5-5.6) Calcium Level 9.1 mg/dl (8.5-10.1) Magnesium Level 1.7 mg/dl (1.8-2.4) Alanine Aminotransferase (ALT/SGPT) 46 U/L (12-78) C-Reactive Protein 0.94 mg/dl (0-0.29) Albumin 3.7 gm/dl (3.4-5.0) Assessment and Plan 61 year old male with Hx CABG, CHF presents with pulmonary edema on CXR, shortness of breath, increasing leg swelling and 25lb increase in weight Acute on chronic congestive heart failure with preserved ejection fraction - ECHO in the past (may 2016) has not confirmed this diagnosis, however, he is morbidly obese making the studies extremely technically difficult. - Suspect BNP is falsely negative due to high BMI but if not responding to lasix will have a low tolerance for investigating other causes for his shortness of breath. - increase lasix 80 mg IV BID (on 80 mg PO @ home). Continue aldactone, metalozone - Daily weights + I&Os - Trend BMP Hypokalemia/hypomagnesemia - Restart lisinopril given admission for heart failure. - Replace as necessary (increased KCl from 60 meq BID to 80 meq BID) Hyponatremia - Hypervolemic therefore suspect hyponatremia due to hear failure. he runs around 130 chronically - BMP daily, should improve with lasix. RLE cellulitis, recurrent - ID consult appreciate recommendations - CRP added to labs to assess severity - Continue daptomycin for now but it appears chronic and increased leg swelling is causing it to seep. - Wound culture - Blood cultures pending T2DM - he is concerned with low amounts of insulin coverage for his meals. Total insulin daily 364 units at home. Discussed ideally we would carb coverage with correction while in hospital and we will continue to increase this as necessary to which he is agreeable. - Continue lantus 80 units Q12H. 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 History Resident Physician Supervision Note: I was present with Dr. Verma during the history and exam. I discussed the case with the resident and agree with the findings and plan as documented in the note. Any exceptions or clarifications are listed here. Pt seen and examined at bedside. Aching/tight pain of the b/l LE minimally improved. Considerable increase in UOP following lasix dosing IV to patient's pleasure. Concerned re: insulin management discussed in detail w/ Dr. Verma re : correction factors and coverage. Reports no MEHTA, CP/SOB, palpitations, n/v/d/c , abd pain, sensory changes. General Appearance: no apparent distress, obese Neck: non-tender, other (tracheostomy in place) Respiratory: no respiratory distress, decreased breath sounds (throughout 2/2 habitus), other (?coarse breath sounds scattered but no reliable findings 2/2 technically difficult exam) Cardiovascular: normal peripheral pulses, regular rate, rhythm, no murmur, other (2++ pitting edema b/l throughout the LE) Extremities: normal range of motion, other (TTp erythematous RLE to the proximal chambers with warmth, dressing C/D/I) Assessment/Plan 61 y/o male h/o CHF, CAD s/p CABG, DMII, Afib presents w/ worsening SOB and edema CHF exacerbation - continue IV diuresis at 80mg with close monitoring of creatinine. Daily wt/I/O. Continue meoprolol, restart lisinopril Hyponatremia - likely 2/2 CHF exacerbation and volume shift, will monitor for correction w/ improvement of HF Hypokalemia - PO repletion, monitor for diarrhea RLE cellulitis - continue dapto, f/u BCx. ID consulted & recommendations appreciated. Atrial fibrillation - continue xarelto, diltiazem, toprol ALLIE - make sure qHS system in place for mgmt CAD s/p CABG - B roberta, ASA, lipitor HTN - continue toprol, lisinopril, diltiazem COPD - pulmicort, duonebs Telemetry patient Resident Tracking Resident Involvement: Resident Care Provided Care Provided: Adult Hospital Medicine
[2016-10-29] MEDS ORDERED: MAGNESIUM OXIDE 400 MG TAB PO ONE (10:45)
[2016-10-29] MEDS ORDERED: POTASSIUM CHLORIDE 20 MEQ TABCR PO ONE (10:45)
[2016-10-29 11:00] LABS: URINE APPEARANCE CLEAR (CLEAR); URINE BILIRUBIN NEG (NEG); URINE COLOR YELLOW; URINE EPITHELIAL CELL AUTO 0-5 /lpf (0-5); URINE NITRITE NEG (NEG); URINE PH 7.5 (4.5-7.5); URINE SPECIFIC GRAVITY 1.011 (1.000-1.030); UROBILINOGEN NEG (NEG); ZZUR CULT IF INDIC CLEAN CATCH NO
[2016-10-29 11:01] LABS: REVIEW REQ? NO
[2016-10-29 11:03] LABS: MANUAL MICROSCOPIC REQUIRED? NO
--- NOTE | 2016-10-29 11:35 | Medical Consult ---
Consultation Date of Consultation: Oct 29, 2016. Attending Physician: Lew Díaz MD Reason for Consultation: Cellulitis History of Present Illness Patient is a morbidly obese 61-year-old male who presents emergency department with worsening respiratory problems this started a few days prior to admission. The patient states that over the weekend was gained approximately 25 pounds in 2 days, which is 1 of the thigh and that he needed to come into the hospital. He has been having edema of his bilateral lower extremities and feels extremely bloated. The patient has noted that he has had increased cough at home as well and has been coughing some green sputum on an off. The patient states that he had just completed a course of Levaquin of for 20 days for potential lung infection. The patient does have chronic recurrent right lower extremity cellulitis for which she has been seen by myself and Dr. Mendoza in past. Since admission, the patient did have a white blood cell count of 9.02. His creatinine was 0.93. Blood cultures are pending. Chest x-ray showed developing congestive heart failure. The patient has been afebrile. He was placed empirically on IV daptomycin. Past Medical/Surgical History Medical Problems: (1) Atrial fibrillation with rapid ventricular response Status: Acute (2) Back pain Status: Acute (3) Cellulitis Status: Acute (4) Congestive heart failure Status: Acute (5) Dyspnea Status: Acute (6) Failure of outpatient treatment Status: Acute (7) Hyperglycemia Status: Acute (8) Morbid obesity Status: Chronic (9) Pneumonia Status: Acute (10) Pneumonia Status: Acute (11) Pneumonia Status: Acute (12) Tracheitis Status: Acute (13) Weight gain Status: Acute Medical Problems: (1) Cellulitis (2) Cellulitis and abscess of leg (3) COPD (chronic obstructive pulmonary disease) (4) COPD exacerbation (5) Diabetes (6) Dyspnea (7) Fever chills (8) HCAP (healthcare-associated pneumonia) (9) Hemoptysis (10) Hyperlipidemia (11) Morbid obesity (12) PNA (pneumonia) (13) Sepsis due to Streptococcus pneumoniae (14) SOB (shortness of breath) Surgical Problems: (1) Tracheostomy in place Family History Diabetes mellitus Heart disease Noncontributory Social History Smoking Status: Never Smoker Drug Use: none Marital Status: Occupation Status: unemployed Allergies Coded Allergies: [place] (Verified Allergy, Severe, Difficulty breathing, 07/15/16) Sodium Hypochlorite (Verified Allergy, Unknown, HIVES AND RESPIRATORY DIFFICULTY FROM [place]OR[place], 07/15/16) Home Medications Reported Home Medications Medications Dose Route/Sig Max Daily Dose Days Date Category Dose Instructions Ventolin Hfa (Albuterol) 200 Puffs/82858 Mcg Aers 1 Puffs INH QID PRN 10/28/16 Reported Latanoprost 37 Drops/2.5 Ml Soln 1 Drop OPB HS 10/28/16 Reported Artificial Tears (Yccwhwrw-Pycfqkxrsdhj-Kgsudnne) 1 Isreal Isreal 1 Drop OPR HS PRN 07/15/16 Reported Lopressor (Metoprolol Tartrate) 25 Mg Tab 25 Mg PO BID 07/15/16 Reported Bacitracin (Bacitracin (Topical)) 500 Unit/Gm Oin 1 Appln TOP DAILY 7 07/15/16 Reported Mucinex Maximum Strength (Guaifenesin) 1,200 Mg Tab 1,200 Mg PO BID 15 07/15/16 Reported Percocet 10MG/325MG (Oxycodone/Acetaminophen) Tab 1 Tab PO Q8 PRN 07/15/16 Reported Novolog Flexpen (Insulin Aspart) 100 Units/Ml Inj 44 Units SQ DAILY 07/15/16 Reported TAKES WITH LUNCH Novolog Flexpen (Insulin Aspart) 100 Units/Ml Inj 77 Units SQ QPM 07/15/16 Reported Novolog Flexpen (Insulin Aspart) 100 Units/Ml Inj 81 Units SQ QAM 07/15/16 Reported Lantus Solostar (Insulin Glargine) 100 Unit/Ml Inj 80 Units SC AMPM 07/15/16 Reported Qnasl (Beclomethasone Dipropionate (N) 80 Mcg/Act Aer 1 [place] SIMBA DAILY 07/15/16 Reported Aldactone (Spironolactone) 25 Mg Tab 25 Mg PO BID 07/15/16 Reported Klor-Con (Potassium Chloride) 20 Meq Tabcr 60 Meq PO BID 07/15/16 Reported Glucagon Emergency Kit (Glucagon) 1 Mg Kit 1 Dose INJ UD 07/15/16 Reported Lasix (Furosemide) 80 Mg Tab 80 Mg PO BID 07/15/16 Reported Cardizem (Diltiazem Hcl) 30 Mg Tab 30 Mg PO QID 07/15/16 Reported Clarinex (Desloratadine) 5 Mg Tab 5 Mg PO DAILY 07/15/16 Reported Aspirin 81 (Aspirin) 81 Mg Tab 81 Mg PO DAILY 07/15/16 Reported Trusopt Oph (Dorzolamide Hcl) 2 % Vanessa 1 Drops OP BID 05/03/16 Reported Mag-Ox (Magnesium Oxide) 400 Mg Tab 400 Mg PO BID 04/02/16 Reported Isosorbide Mononitrate ER (Isosorbide Mononitrate) 30 Mg Tabcr 30 Mg PO DAILY 09/13/15 Reported Pulmicort Respules 0.5MG/2ML (Budesonide) 0.5 Mg/2 Ml Nebu 2 Ml INH BID 07/17/15 Reported Duoneb (Ipratropium-Albuterol) 3 Ml Nebu 1 Treatment INH Q4H 07/17/15 Reported Nitrostat (Nitroglycerin) 0.4 Mg Tab 1 Tab SL UD 07/17/15 Reported Lorazepam 1 Mg Tab 1 Mg PO QID PRN 07/17/15 Reported Xarelto (Rivaroxaban) 20 Mg Tab 20 Mg PO DAILY 30 07/17/15 Reported [place]-3 (Fish Oil) 1 Ea Cap 1 Cap PO DAILY 04/28/13 Reported Mvi With Minerals (Multivitamins/Minerals) Tab 1 Tab PO DAILY 04/28/13 Reported Zaroxolyn (Metolazone) 5 Mg Tab 5 Mg PO DAILY 04/28/13 Reported Zestril (Lisinopril) 10 Mg Tab 10 Mg PO DAILY 04/28/13 Reported Lipitor (Atorvastatin Calcium) 80 Mg Tab 80 Mg PO DAILY 04/28/13 Reported Current Inpatient Medications Current Inpatient Medications Medications (Trade) Dose Ordered Sig/Saige Route Start Time Stop Time Status Last Admin Dose Admin Acetaminophen (Tylenol Tab) 650 mg Q4H PRN PO 10/29/16 00:00 11/28/16 00:00 Al Hydrox/Mg Hydrox/Simethicone (Maalox Max Susp) 15 ml Q4H PRN PO 10/29/16 00:00 11/28/16 00:00 Magnesium Hydroxide (Milk Of Magnesia Susp) 30 ml Q6H PRN PO 10/29/16 00:00 11/28/16 00:00 Polyethylene (Miralax Powder Packet) 17 gm DAILY PRN PO 10/29/16 00:00 11/28/16 00:00 Ondansetron HCl (Zofran Inj) 4 mg Q6H PRN IV 10/29/16 00:00 11/28/16 00:00 Nitroglycerin (Nitrostat Tab) 0.4 mg UD PRN SL 10/29/16 00:00 11/28/16 00:00 Albuterol (Ventolin Hfa Inhaler) 1 puffs QID PRN INH 10/29/16 00:00 11/28/16 00:00 Aspirin (Ecotrin Tab) 81 mg DAILY PO 10/29/16 09:00 11/28/16 08:59 10/29/16 08:14 81 MG Atorvastatin Calcium (Lipitor Tab) 80 mg DAILY PO 10/29/16 09:00 11/28/16 08:59 10/29/16 08:17 80 MG Budesonide (Pulmicort Respules 0.5MG/ 2ML Neb Soln) 1 mg BIDR INH 10/29/16 08:00 11/28/16 07:59 Diltiazem HCl (Cardizem Tab) 30 mg QID PO 10/29/16 09:00 11/28/16 08:59 10/29/16 08:17 30 MG Dorzolamide HCl (Trusopt 2% Oph Soln) 1 drops BID OP 10/29/16 09:00 11/28/16 08:59 10/29/16 08:19 1 DROPS Albuterol/ Ipratropium (Duoneb) 3 ml Q4R INH 10/29/16 00:00 11/28/16 00:00 10/29/16 07:10 3 ML Isosorbide Mononitrate (Imdur Ext Rel Tab) 30 mg DAILY PO 10/29/16 09:00 11/28/16 08:59 10/29/16 08:15 30 MG Latanoprost (Xalatan Oph Soln) 1 drops HS OPB 10/29/16 21:00 11/28/16 20:59 Lisinopril (Zestril Tab) 10 mg DAILY PO 10/29/16 09:00 11/28/16 08:59 Future Hold 10/29/16 09:04 10 MG Lorazepam (Ativan Tab) 1 mg QID PRN PO 10/29/16 00:00 11/28/16 00:00 10/29/16 02:30 1 MG Metolazone (Zaroxolyn Tab) 5 mg DAILY PO 10/29/16 09:00 11/28/16 08:59 10/29/16 08:15 5 MG Metoprolol Tartrate (Lopressor Tab) 25 mg BID PO 10/29/16 09:00 11/28/16 08:59 10/29/16 08:18 25 MG Multivitamins/ Minerals (Multivitamin W/ Minerals Tab) 1 tab DAILY PO 10/29/16 09:00 11/28/16 08:59 10/29/16 08:16 1 TAB Oxycodone/ Acetaminophen (Percocet 10-325MG Tab) 1 tab Q8 PRN PO 10/29/16 00:00 11/12/16 00:00 10/29/16 02:31 1 TAB Potassium Chloride (Klor-Con Tab) 60 meq BID PO 10/29/16 09:00 11/28/16 08:59 10/29/16 08:17 60 MEQ Rivaroxaban (Xarelto Tab) 20 mg QDD PO 10/29/16 16:45 11/28/16 16:44 Spironolactone (Aldactone Tab) 25 mg BID17 PO 10/29/16 09:00 11/28/16 08:59 10/29/16 08:15 25 MG Insulin Glargine (Lantus Solostar Pen) 80 unit BID SC 10/29/16 09:00 11/28/16 08:59 10/29/16 08:10 80 UNIT Insulin Aspart SLIDING SCALE G... ACHS SC 10/29/16 07:00 10/29/16 08:10 6 UNITS Daptomycin/Sodium Chloride (Cubicin IV/Nss 50ml) 66.6 ml @ 100 mls/hr DAILY@0600 IV 10/29/16 06:00 11/08/16 05:59 10/29/16 06:37 100 MLS/HR Glucose (Glucose 40% Gel) 15-30 GRAMS 15 GRAMS... UD PRN PO 10/29/16 02:45 11/28/16 02:44 Glucose (Glucose Chew Tab) 4-8 Tablets 4 Tabl... UD PRN PO 10/29/16 02:45 11/28/16 02:44 Dextrose (Dextrose 50% 50ML Syringe) 25-50ML OF 50% DW IV FOR... UD PRN IV 10/29/16 02:45 11/28/16 02:44 Glucagon 1 mg 1 mg UD PRN SQ 10/29/16 02:45 11/28/16 02:44 Furosemide/Syringe (Lasix Inj/ Syringe) 8 ml @ 4 mls/min BID@0900,1400 IV 10/29/16 09:00 11/28/16 08:59 10/29/16 09:03 4 MLS/MIN Potassium Chloride (Klor-Con Tab) 20 meq BID PO 10/29/16 21:00 11/28/16 20:59 Magnesium Oxide (Mag-Ox Tab) 800 mg BID PO 10/29/16 21:00 11/28/16 20:59 Review of Systems Constitutional: + fatigue, + problem reported (25 lb weight gain [employer]), No chills, No fever Eyes: No worsening of vision ENT: No hearing loss Respiratory: + cough, + dyspnea at rest, + dyspnea on exertion, + shortness of breath Cardiovascular: No palpitations Abdomen: + diarrhea ([employer]- now resolved, likely from Levaquin previously ), No pain Musculoskeletal: + joint pain (left knee), + swelling (right LE) Genitourinary - Male: No dysuria Integumentary: + color change (purple/erythema of right LE) Physical Exam Date Time Temp Pulse Resp B/P Pulse Ox O2 Delivery O2 Flow Rate FiO2 10/29/16 08:00 Room Air 10/29/16 07:59 36.7 108 26 141/82 95 10/29/16 07:10 97 20 94 Room Air 10/29/16 04:15 95 Trach Collar 28 10/29/16 03:31 105 20 95 Trach Collar 10.0 28 10/29/16 03:20 108 26 153/82 95 Trach Collar 28 10/29/16 02:00 36.7 92 24 193/75 95 Room Air 10/29/16 01:51 93 24 164/83 95 10/29/16 00:30 92 20 138/91 94 Room Air 10/28/16 22:47 91 10/28/16 22:41 93 20 171/74 95 Room Air 10/28/16 20:49 85 20 179/100 96 Room Air 10/28/16 18:57 Room Air 10/28/16 18:54 37.0 88 20 155/76 96 Room Air General Appearance: + moderate distress (respiratory), + obese (morbidly) Head: normocephalic, atraumatic Eyes: normal inspection, sclerae normal ENT: hearing grossly normal Neck: supple, + pertinent finding (tracheostomy) Respiratory/Chest: + respiratory distress, + wheezing (mild throughout lung krishnamurthy) Cardiovascular: + pertinent finding (distant heart sounds due to body habitus) Abdomen/GI: normal bowel sounds, + pertinent finding (obese) Back: normal inspection Extremities/Musculoskelatal: + swelling (1+ pitting edema of the right lower extremity, trace to 1+ of LLE. Pain to palpation of the skin of RLE) Neurologic/Psych: alert, + depressed affect Skin: warm/dry, + pertinent finding (Dark purple/erythematous discoloration of the RLE. No real warmth to palpation. Small amount of yellow drainage from right lower extremity excoriation wound) Laboratory Results CHEST ONE VIEW PORTABLE CLINICAL HISTORY: Chest Pain dyspnea COMPARISON STUDY: 07/15/2016 FINDINGS: Stable cardiomegaly stable pleural parenchymal scarring left hemithorax. Increased prominence of pulmonary vasculature. Tracheostomy tube in position. IMPRESSION: Developing congestive heart failure. This is superimposed upon chronic pleural and parenchymal change Item Value Date Time Blood Culture Received 10/29/16 0145 Blood Pending Blood Culture Received 10/29/16 0140 Blood Pending Last 24 Hours Test 10/28/16 22:31 10/29/16 02:22 10/29/16 06:41 10/29/16 09:52 White Blood Count 9.02 K/uL Red Blood Count 4.36 M/uL Hemoglobin 13.2 g/dL Hematocrit 37.8 % Mean Corpuscular Volume 86.7 fL Mean Corpuscular Hemoglobin 30.3 pg Mean Corpuscular Hemoglobin Concent 34.9 g/dl Platelet Count 138 K/uL Mean Platelet Volume 10.5 fL Neutrophils (%) (Auto) 71.9 % Lymphocytes (%) (Auto) 14.0 % Monocytes (%) (Auto) 12.5 % Eosinophils (%) (Auto) 0.4 % Basophils (%) (Auto) 0.2 % Neutrophils # (Auto) 6.48 K/uL Lymphocytes # (Auto) 1.26 K/uL Monocytes # (Auto) 1.13 K/uL Eosinophils # (Auto) 0.04 K/uL Basophils # (Auto) 0.02 K/uL RDW Standard Deviation 43.3 fL RDW Coefficient of Variation 13.7 % Immature Granulocyte % (Auto) 1.0 % Immature Granulocyte # (Auto) 0.09 K/uL Sodium Level 130 mmol/L 129 mmol/L Potassium Level 3.3 mmol/L 3.0 mmol/L Chloride Level 89 mmol/L 85 mmol/L Carbon Dioxide Level 30 mmol/L 30 mmol/L Anion Gap 11.0 mmol/L 14.0 mmol/L Blood Urea Nitrogen 21 mg/dl 20 mg/dl Creatinine 0.93 mg/dl 1.00 mg/dl Est Creatinine Clear Calc Drug Dose 154.2 ml/min 144.4 ml/min Estimated GFR () 102.3 93.7 Estimated GFR (Non- 88.3 80.9 BUN/Creatinine Ratio 22.4 19.5 Random Glucose 203 mg/dl 228 mg/dl Calcium Level 8.8 mg/dl 9.1 mg/dl Magnesium Level 1.7 mg/dl 1.7 mg/dl Total Creatine Kinase 157 U/L Creatine Kinase MB 3.0 ng/ml Creatine Kinase MB Ratio 1.9 Troponin I 0.022 ng/ml Pro-B-Type Natriuretic Peptide 292 pg/ml Bedside Glucose 242 mg/dl 196 mg/dl Estimated Average Glucose 180 mg/dl Hemoglobin A1c 7.9 % Total Bilirubin 0.9 mg/dl Aspartate Amino Transf (AST/SGOT) 38 U/L Alanine Aminotransferase (ALT/SGPT) 46 U/L Alkaline Phosphatase 56 U/L C-Reactive Protein 0.94 mg/dl Total Protein 6.9 gm/dl Albumin 3.7 gm/dl Globulin 3.2 gm/dl Albumin/Globulin Ratio 1.2 Test 10/29/16 10:22 10/29/16 11:12 Urine Color YELLOW Urine Appearance CLEAR Urine pH 7.5 Urine Specific [place] 1.011 Urine Protein NEG Urine Glucose (UA) NEG Urine Ketones NEG Urine Occult Blood NEG Urine Nitrite NEG Urine Bilirubin NEG Urine Urobilinogen NEG Urine Leukocyte Esterase NEG Urine WBC (Auto) 0 /hpf Urine RBC (Auto) 0-4 /hpf Urine Hyaline Casts (Auto) 0 /lpf Urine Epithelial Cells (Auto) 0-5 /lpf Urine Bacteria (Auto) NEG Bedside Glucose 208 mg/dl Assessment & Plan Morbidly obese diabetic male with CHF exacerbation and right lower extremity cellulitis. He is currently on IV Daptomycin. There was a very small amount of drainage at the distal portion of the right lower extremity, therefore ordered surface wound culture. Blood cultures are pending. Continue IV Daptomycin pending improvement. May need to broaden coverage if no improvement is seen, but feel that the patient's fluid overload is contributing to the appearance of his RLE. We will follow. Note: This document was dictated utilizing [employer] voice recognition software. Minor errors in needle maker may be present. PROVIDER ADDENDUM: Patient examined and reviewed with Ms. Duggan. Agree with above assessment.
[2016-10-29] MEDS: ACETAMINOPHEN 325 MG TAB PO PRN (17:04)
[2016-10-29] MEDS: RIVAROXABAN 10 MG TAB PO SCH (17:04)
[2016-10-29] MEDS: MAGNESIUM OXIDE 400 MG TAB PO SCH (21:53)
[2016-10-29] MEDS: LATANOPROST 0.005% OP SOLN 2.5 ML BTL OPB SCH (21:54)
[2016-10-30] VITALS (13 sets, daily range): BP systolic 119–168; BP diastolic 69–87; PULSE 70–103; TEMP 36.5–36.8; O2SAT 95–99
[2016-10-30] MEDS: ALBUT/IPRATROP 3MG/0.5MG NEB 3 ML VIAL INH SCH ×6 (03:52→23:45)
[2016-10-30] MEDS: SODIUM CHLORIDE 0.9% IV SCH (05:38)
[2016-10-30] MEDS: DAPTOMYCIN IV SCH (05:38)
[2016-10-30 07:17] LABS: HEMATOCRIT 36.4 % (42-52); MEAN CELL VOLUME 87.1 fL (80-100); MEAN CORPUSCULAR HEMOGLOBIN 31.3 pg (25-34); MEAN PLATELET VOLUME 10.9 fL (7.4-10.4); PLATELET COUNT 132 K/uL (130-400); RED BLOOD COUNT 4.18 M/uL (4.7-6.1); WHITE BLOOD COUNT 9.47 K/uL (4.8-10.8)
[2016-10-30] MEDS: BUDESONIDE 0.5 MG/2 ML VIAL (PULMICORT) INH SCH ×2 (07:18→19:21)
[2016-10-30 07:38] LABS: INR 1.2 (0.9-1.1); PROTHROMBIN TIME (PATIENT) 12.7 SECONDS (9.0-12.0)
[2016-10-30 07:47] LABS: C-REACTIVE PROTEIN 0.99 mg/dl (0-0.29); CREATININE 0.78 mg/dl (0.60-1.40); MAGNESIUM 1.8 mg/dl (1.8-2.4); POTASSIUM 2.9 mmol/L (3.5-5.1)
[2016-10-30] MEDS: INSULIN GLARGINE SOLOSTAR 100 UNITS/ML 3 ML PEN SC SCH (08:00)
[2016-10-30] MEDS: INSULIN ASPART 100 UNITS/ML 3 ML PEN SC SCH ×4 (08:00→21:26)
[2016-10-30] MEDS: LORAZEPAM 1 MG TAB PO PRN ×3 (08:04→21:40)
[2016-10-30] MEDS: OXYCODONE/ACETAMINOPHEN 10/325MG TAB PO PRN ×2 (08:05→21:41)
[2016-10-30] MEDS: ASPIRIN 81 MG ECTAB PO SCH (08:05)
[2016-10-30] MEDS: DORZOLAMIDE HCL 2% OPH SOLN 10 ML BTL OP SCH ×2 (08:05→21:24)
[2016-10-30] MEDS: METOPROLOL TARTRATE 25 MG TAB PO SCH ×2 (08:06→21:23)
[2016-10-30] MEDS: CEROVITE ADV FORMULA TAB PO SCH (08:06)
[2016-10-30] MEDS: ATORVASTATIN 40 MG TAB PO SCH (08:06)
[2016-10-30] MEDS: DILTIAZEM HCL 30 MG TAB PO SCH ×4 (08:07→21:23)
[2016-10-30] MEDS: ISOSORBIDE MONONITRATE 30 MG TABCR PO SCH (08:07)
[2016-10-30] MEDS: SPIRONOLACTONE 25 MG TAB PO SCH ×2 (08:08→17:44)
[2016-10-30] MEDS: MAGNESIUM OXIDE 400 MG TAB PO SCH ×2 (08:08→21:23)
[2016-10-30] MEDS: METOLAZONE 5 MG TAB PO SCH (08:08)
[2016-10-30] MEDS: FUROSEMIDE INJ 80 MG in SYRINGE 0 ML IV SCH ×2 (09:06→13:13)
[2016-10-30] MEDS: LISINOPRIL 10 MG TAB PO SCH (09:06)
--- NOTE | 2016-10-30 09:52 | Infectious Disease Progress Nt ---
Progress Note Date of Service Oct 30, 2016. Subjective Pt evaluation today including: conversation w/ patient, physical exam, chart review, lab review, review of studies, conversation w/ network security consultant (Dr. Díaz), review of inpatient medication list WBC count this morning is 9.47. Creatinine was 0.78 this morning. The patient continues on IV Daptomycin. He continues to have pain in the right lower extremity and some mild drainage from the distal right LE. He continues to have some green sputum production in his tracheostomy site. Blood cultures showing NGTD. Wound culture is still pending. All Other Systems: Reviewed and Negative Medications Current Inpatient Medications Medications (Trade) Dose Ordered Sig/Saige Route Start Time Stop Time Status Last Admin Dose Admin Acetaminophen (Tylenol Tab) 650 mg Q4H PRN PO 10/29/16 00:00 11/28/16 00:00 10/29/16 17:04 650 MG Al Hydrox/Mg Hydrox/Simethicone (Maalox Max Susp) 15 ml Q4H PRN PO 10/29/16 00:00 11/28/16 00:00 Magnesium Hydroxide (Milk Of Magnesia Susp) 30 ml Q6H PRN PO 10/29/16 00:00 11/28/16 00:00 Polyethylene (Miralax Powder Packet) 17 gm DAILY PRN PO 10/29/16 00:00 11/28/16 00:00 Ondansetron HCl (Zofran Inj) 4 mg Q6H PRN IV 10/29/16 00:00 11/28/16 00:00 Nitroglycerin (Nitrostat Tab) 0.4 mg UD PRN SL 10/29/16 00:00 11/28/16 00:00 Albuterol (Ventolin Hfa Inhaler) 1 puffs QID PRN INH 10/29/16 00:00 11/28/16 00:00 Aspirin (Ecotrin Tab) 81 mg DAILY PO 10/29/16 09:00 11/28/16 08:59 10/30/16 08:05 81 MG Atorvastatin Calcium (Lipitor Tab) 80 mg DAILY PO 10/29/16 09:00 11/28/16 08:59 10/30/16 08:06 80 MG Budesonide (Pulmicort Respules 0.5MG/ 2ML Neb Soln) 1 mg BIDR INH 10/29/16 08:00 11/28/16 07:59 10/30/16 07:18 1 MG Diltiazem HCl (Cardizem Tab) 30 mg QID PO 10/29/16 09:00 11/28/16 08:59 10/30/16 08:07 30 MG Dorzolamide HCl (Trusopt 2% Oph Soln) 1 drops BID OP 10/29/16 09:00 11/28/16 08:59 10/30/16 08:05 1 DROPS Albuterol/ Ipratropium (Duoneb) 3 ml Q4R INH 10/29/16 00:00 11/28/16 00:00 10/30/16 07:18 3 ML Isosorbide Mononitrate (Imdur Ext Rel Tab) 30 mg DAILY PO 10/29/16 09:00 11/28/16 08:59 10/30/16 08:07 30 MG Latanoprost (Xalatan Oph Soln) 1 drops HS OPB 10/29/16 21:00 11/28/16 20:59 10/29/16 21:54 1 DROPS Lisinopril (Zestril Tab) 10 mg DAILY PO 10/29/16 09:00 11/28/16 08:59 Future hold 10/30/16 09:06 10 MG Lorazepam (Ativan Tab) 1 mg QID PRN PO 10/29/16 00:00 11/28/16 00:00 10/30/16 08:04 1 MG Metolazone (Zaroxolyn Tab) 5 mg DAILY PO 10/29/16 09:00 11/28/16 08:59 10/30/16 08:08 5 MG Metoprolol Tartrate (Lopressor Tab) 25 mg BID PO 10/29/16 09:00 11/28/16 08:59 10/30/16 08:06 25 MG Multivitamins/ Minerals (Multivitamin W/ Minerals Tab) 1 tab DAILY PO 10/29/16 09:00 11/28/16 08:59 10/30/16 08:06 1 TAB Oxycodone/ Acetaminophen (Percocet 10-325MG Tab) 1 tab Q8 PRN PO 10/29/16 00:00 11/12/16 00:00 10/30/16 08:05 1 TAB Rivaroxaban (Xarelto Tab) 20 mg QDD PO 10/29/16 16:45 11/28/16 16:44 10/29/16 17:04 20 MG Spironolactone (Aldactone Tab) 25 mg BID17 PO 10/29/16 09:00 11/28/16 08:59 10/30/16 08:08 25 MG Insulin Glargine (Lantus Solostar Pen) 80 unit BID SC 10/29/16 09:00 11/28/16 08:59 10/30/16 08:00 80 UNIT Insulin Aspart SLIDING SCALE G... ACHS SC 10/29/16 07:00 11/28/16 06:59 10/30/16 08:00 35 UNITS Daptomycin/Sodium Chloride (Cubicin IV/Nss 50ml) 66.6 ml @ 100 mls/hr DAILY@0600 IV 10/29/16 06:00 11/08/16 05:59 10/30/16 05:38 100 MLS/HR Glucose (Glucose 40% Gel) 15-30 GRAMS 15 GRAMS... UD PRN PO 10/29/16 02:45 11/28/16 02:44 Glucose (Glucose Chew Tab) 4-8 Tablets 4 Tabl... UD PRN PO 10/29/16 02:45 11/28/16 02:44 Dextrose (Dextrose 50% 50ML Syringe) 25-50ML OF 50% DW IV FOR... UD PRN IV 10/29/16 02:45 11/28/16 02:44 Glucagon 1 mg 1 mg UD PRN SQ 10/29/16 02:45 11/28/16 02:44 Furosemide/Syringe (Lasix Inj/ Syringe) 8 ml @ 4 mls/min BID@0900,1400 IV 10/29/16 09:00 11/28/16 08:59 10/30/16 09:06 4 MLS/MIN Magnesium Oxide (Mag-Ox Tab) 800 mg BID PO 10/29/16 21:00 11/28/16 20:59 10/30/16 08:08 800 MG Potassium Chloride (Klor-Con Tab) 80 meq TID PO 10/30/16 09:00 11/29/16 08:59 UNV Objective Vital Signs Date Time Temp Pulse Resp B/P Pulse Ox O2 Delivery O2 Flow Rate FiO2 10/30/16 08:00 36.8 90 26 158/87 95 10/30/16 07:20 97 22 96 Room Air 10/30/16 04:04 36.5 82 22 168/69 99 Trach Collar 10/30/16 04:00 95 Trach Collar 10.0 28 10/30/16 03:52 82 22 99 Trach Collar 28 10/30/16 00:01 95 Trach Collar 10.0 28 10/29/16 23:40 37.1 75 22 136/54 98 Trach Collar 10/29/16 23:13 76 20 95 Room Air 10/29/16 20:00 Room Air 10.0 28 Trach Collar 10/29/16 19:45 36.8 78 22 135/68 99 Trach Collar 10/29/16 19:33 83 20 95 Room Air 10/29/16 16:00 Room Air 10.0 28 Trach Collar 10/29/16 15:50 83 20 96 Room Air 10/29/16 15:40 37.1 81 24 113/57 98 Trach Collar 10/29/16 12:00 Room Air 10/29/16 11:35 36.8 88 26 122/54 93 10/29/16 11:20 95 20 95 Room Air Physical Exam General Appearance: + mild distress (respiratory), + obese Eyes: normal inspection ENT: hearing grossly normal Neck: + pertinent finding (tracheostomy) Respiratory/Chest: + respiratory distress, + wheezing (mild throughout lung krishnamurthy) Cardiovascular: regular rate, rhythm Abdomen: normal bowel sounds, + pertinent finding (morbidly obese) Extremities: + swelling (mild edema RLE. Tenderness to palpation of anterior RLE. ), + pertinent finding Neurologic/Psychiatric: alert, normal mood/affect Skin: + pertinent finding (Continued purple discoloration of RLE. No warmth) Laboratory Results Item Value Date Time Gram Stain Received 10/29/16 1318 Drainage - Surface Leg Right Lower Pending Blood Culture - Preliminary Resulted 10/29/16 0145 Blood NO GROWTH TO DATE. Blood Culture - Preliminary Resulted 10/29/16 0140 Blood NO GROWTH TO DATE. Last 24 Hours Test 10/29/16 09:52 10/29/16 10:22 10/29/16 11:12 10/29/16 16:03 Sodium Level 129 mmol/L Potassium Level 3.0 mmol/L Chloride Level 85 mmol/L Carbon Dioxide Level 30 mmol/L Anion Gap 14.0 mmol/L Blood Urea Nitrogen 20 mg/dl Creatinine 1.00 mg/dl Est Creatinine Clear Calc Drug Dose 144.4 ml/min Estimated GFR () 93.7 Estimated GFR (Non- 80.9 BUN/Creatinine Ratio 19.5 Random Glucose 228 mg/dl Estimated Average Glucose 180 mg/dl Hemoglobin A1c 7.9 % Calcium Level 9.1 mg/dl Magnesium Level 1.7 mg/dl Total Bilirubin 0.9 mg/dl Aspartate Amino Transf (AST/SGOT) 38 U/L Alanine Aminotransferase (ALT/SGPT) 46 U/L Alkaline Phosphatase 56 U/L C-Reactive Protein 0.94 mg/dl Total Protein 6.9 gm/dl Albumin 3.7 gm/dl Globulin 3.2 gm/dl Albumin/Globulin Ratio 1.2 Urine Color YELLOW Urine Appearance CLEAR Urine pH 7.5 Urine Specific [place] 1.011 Urine Protein NEG Urine Glucose (UA) NEG Urine Ketones NEG Urine Occult Blood NEG Urine Nitrite NEG Urine Bilirubin NEG Urine Urobilinogen NEG Urine Leukocyte Esterase NEG Urine WBC (Auto) 0 /hpf Urine RBC (Auto) 0-4 /hpf Urine Hyaline Casts (Auto) 0 /lpf Urine Epithelial Cells (Auto) 0-5 /lpf Urine Bacteria (Auto) NEG Bedside Glucose 208 mg/dl 194 mg/dl Test 10/29/16 19:52 10/30/16 06:39 10/30/16 06:51 Bedside Glucose 246 mg/dl 179 mg/dl White Blood Count 9.47 K/uL Red Blood Count 4.18 M/uL Hemoglobin 13.1 g/dL Hematocrit 36.4 % Mean Corpuscular Volume 87.1 fL Mean Corpuscular Hemoglobin 31.3 pg Mean Corpuscular Hemoglobin Concent 36.0 g/dl RDW Standard Deviation 43.6 fL RDW Coefficient of Variation 13.7 % Platelet Count 132 K/uL Mean Platelet Volume 10.9 fL Prothrombin Time 12.7 SECONDS Prothromb Time International Ratio 1.2 Activated Partial Thromboplast Time 25.9 SECONDS Partial Thromboplastin Ratio 1.0 Sodium Level 128 mmol/L Potassium Level 2.9 mmol/L Chloride Level 85 mmol/L Carbon Dioxide Level 30 mmol/L Anion Gap 13.0 mmol/L Blood Urea Nitrogen 20 mg/dl Creatinine 0.78 mg/dl Est Creatinine Clear Calc Drug Dose 184.8 ml/min Estimated GFR () 112.9 Estimated GFR (Non- 97.4 BUN/Creatinine Ratio 25.0 Random Glucose 167 mg/dl Calcium Level 9.0 mg/dl Magnesium Level 1.8 mg/dl C-Reactive Protein 0.99 mg/dl Assessment and Plan Morbidly obese diabetic male with CHF exacerbation and right lower extremity cellulitis. He is currently on IV Daptomycin. Wound culture pending. Patient also continues to have green sputum production. Will D/C Daptomycin and start IV Ceftaroline to improve coverage for lungs as well as RLE cellulitis. We will continue to follow this patient. PROVIDER ADDENDUM: Patient reviewed with Ms. Duggan. Agree with above assessment.
[2016-10-30] MEDS ORDERED: NURSING DECISION MEDICATION ORDER SCH (10:00)
[2016-10-30] MEDS ORDERED: MICONAZOLE NITRATE POWDER 43 GM EXT PRN (10:15)
[2016-10-30] MEDS: CEFTAROLINE FOSAMIL INJ 600 MG in SODIUM CHLORIDE 0.9% 250ML 250 ML IV SCH ×2 (11:03→21:24)
[2016-10-30] MEDS: POTASSIUM CHLORIDE 20 MEQ TABCR PO SCH ×3 (11:04→21:24)
[2016-10-30] MEDS ORDERED: POTASSIUM CHLR 10 MEQ / WTR 10 MEQ in PREMIXED WATER 100 ML IV SCH (14:00)
[2016-10-30] MEDS ORDERED: NURSING VERBAL MED ORDER ONE (14:45)
--- NOTE | 2016-10-30 17:39 | Family Medicine Progress Note ---
Progress Note Date of Service Oct 30, 2016. Subjective Pt evaluation today including: conversation w/ patient, physical exam, chart review, lab review, review of studies, review of inpatient medication list Voiding: no voiding problems Feeling much the same today. Improved since admission but no change in his leg swelling or shortness of breath since yesterday. All Other Systems: Reviewed and Negative Medications Current Inpatient Medications Medications (Trade) Dose Ordered Sig/Saige Route Start Time Stop Time Status Last Admin Dose Admin Acetaminophen (Tylenol Tab) 650 mg Q4H PRN PO 10/29/16 00:00 11/28/16 00:00 10/29/16 17:04 650 MG Al Hydrox/Mg Hydrox/Simethicone (Maalox Max Susp) 15 ml Q4H PRN PO 10/29/16 00:00 11/28/16 00:00 Magnesium Hydroxide (Milk Of Magnesia Susp) 30 ml Q6H PRN PO 10/29/16 00:00 11/28/16 00:00 Polyethylene (Miralax Powder Packet) 17 gm DAILY PRN PO 10/29/16 00:00 11/28/16 00:00 Ondansetron HCl (Zofran Inj) 4 mg Q6H PRN IV 10/29/16 00:00 11/28/16 00:00 Nitroglycerin (Nitrostat Tab) 0.4 mg UD PRN SL 10/29/16 00:00 11/28/16 00:00 Albuterol (Ventolin Hfa Inhaler) 1 puffs QID PRN INH 10/29/16 00:00 11/28/16 00:00 Aspirin (Ecotrin Tab) 81 mg DAILY PO 10/29/16 09:00 11/28/16 08:59 10/30/16 08:05 81 MG Atorvastatin Calcium (Lipitor Tab) 80 mg DAILY PO 10/29/16 09:00 11/28/16 08:59 10/30/16 08:06 80 MG Budesonide (Pulmicort Respules 0.5MG/ 2ML Neb Soln) 1 mg BIDR INH 10/29/16 08:00 11/28/16 07:59 10/30/16 07:18 1 MG Diltiazem HCl (Cardizem Tab) 30 mg QID PO 10/29/16 09:00 11/28/16 08:59 10/30/16 13:13 30 MG Dorzolamide HCl (Trusopt 2% Oph Soln) 1 drops BID OP 10/29/16 09:00 11/28/16 08:59 10/30/16 08:05 1 DROPS Albuterol/ Ipratropium (Duoneb) 3 ml Q4R INH 10/29/16 00:00 11/28/16 00:00 10/30/16 15:45 3 ML Isosorbide Mononitrate (Imdur Ext Rel Tab) 30 mg DAILY PO 10/29/16 09:00 11/28/16 08:59 10/30/16 08:07 30 MG Latanoprost (Xalatan Oph Soln) 1 drops HS OPB 10/29/16 21:00 11/28/16 20:59 10/29/16 21:54 1 DROPS Lisinopril (Zestril Tab) 10 mg DAILY PO 10/29/16 09:00 11/28/16 08:59 Future hold 10/30/16 09:06 10 MG Lorazepam (Ativan Tab) 1 mg QID PRN PO 10/29/16 00:00 11/28/16 00:00 10/30/16 11:39 1 MG Metolazone (Zaroxolyn Tab) 5 mg DAILY PO 10/29/16 09:00 11/28/16 08:59 10/30/16 08:08 5 MG Metoprolol Tartrate (Lopressor Tab) 25 mg BID PO 10/29/16 09:00 11/28/16 08:59 10/30/16 08:06 25 MG Multivitamins/ Minerals (Multivitamin W/ Minerals Tab) 1 tab DAILY PO 10/29/16 09:00 11/28/16 08:59 10/30/16 08:06 1 TAB Oxycodone/ Acetaminophen (Percocet 10-325MG Tab) 1 tab Q8 PRN PO 10/29/16 00:00 11/12/16 00:00 10/30/16 08:05 1 TAB Rivaroxaban (Xarelto Tab) 20 mg QDD PO 10/29/16 16:45 11/28/16 16:44 10/29/16 17:04 20 MG Spironolactone (Aldactone Tab) 25 mg BID17 PO 10/29/16 09:00 11/28/16 08:59 10/30/16 08:08 25 MG Insulin Aspart (novoLOG ASPART) SLIDING SCALE G... ACHS SC 10/29/16 07:00 11/28/16 06:59 10/30/16 11:42 23 UNITS Glucose (Glucose 40% Gel) 15-30 GRAMS 15 GRAMS... UD PRN PO 10/29/16 02:45 11/28/16 02:44 Glucose (Glucose Chew Tab) 4-8 Tablets 4 Tabl... UD PRN PO 10/29/16 02:45 11/28/16 02:44 Dextrose (Dextrose 50% 50ML Syringe) 25-50ML OF 50% DW IV FOR... UD PRN IV 10/29/16 02:45 11/28/16 02:44 Glucagon 1 mg 1 mg UD PRN SQ 10/29/16 02:45 11/28/16 02:44 Furosemide/Syringe (Lasix Inj/ Syringe) 8 ml @ 4 mls/min BID@0900,1400 IV 10/29/16 09:00 11/28/16 08:59 10/30/16 13:13 4 MLS/MIN Magnesium Oxide (Mag-Ox Tab) 800 mg BID PO 10/29/16 21:00 11/28/16 20:59 10/30/16 08:08 800 MG Potassium Chloride 80 meq 80 meq TID PO 10/30/16 11:00 11/29/16 10:59 10/30/16 11:04 80 MEQ Ceftaroline Fosamil/Sodium Chloride (Teflaro Inj/Nss 250ml) 270 ml @ 250 mls/hr Q12@0900,2100 IV 10/30/16 10:30 11/09/16 10:29 10/30/16 11:03 250 MLS/HR Miconazole Nitrate (Desenex Powder) 1 appln PRN PRN EXT 10/30/16 10:15 11/29/16 10:14 10/30/16 11:03 1 APPLN Insulin Glargine (Lantus Vial) 80 unit BID SC 10/30/16 21:00 11/29/16 20:59 Objective Vital Signs Date Time Temp Pulse Resp B/P Pulse Ox O2 Delivery O2 Flow Rate FiO2 10/30/16 16:47 87 20 96 Room Air 10/30/16 15:52 36.6 84 18 133/71 98 Room Air 10/30/16 12:06 36.5 85 26 119/74 96 10/30/16 12:00 Room Air 10/30/16 11:15 88 20 96 Room Air 10/30/16 08:00 Room Air 10/30/16 08:00 36.8 90 26 158/87 95 10/30/16 07:20 97 22 96 Room Air 10/30/16 04:04 36.5 82 22 168/69 99 Trach Collar 10/30/16 04:00 95 Trach Collar 10.0 28 10/30/16 03:52 82 22 99 Trach Collar 28 10/30/16 00:01 95 Trach Collar 10.0 28 10/29/16 23:40 37.1 75 22 136/54 98 Trach Collar 10/29/16 23:13 76 20 95 Room Air 10/29/16 20:00 Room Air 10.0 28 Trach Collar 10/29/16 19:45 36.8 78 22 135/68 99 Trach Collar 10/29/16 19:33 83 20 95 Room Air Physical Exam ENT: + pertinent finding (trach tube, coughing up sputum chornically now worse than usual) Neck: supple (unable to assess JVD due to neck size) Respiratory/Chest: no respiratory distress, no accessory muscle use, + decreased breath sounds (throughout, quiet, no appreciable crackles, rales, rhonchi or wheezing) Cardiovascular: regular rate, rhythm (no appreciable murmurs but very quiet heart sounds) Abdomen: normal bowel sounds, non tender, soft, + pertinent finding (obesity) Extremities: no calf tenderness, normal capillary refill, + pedal edema (R>L) Neurologic/Psychiatric: alert, normal mood/affect, oriented x 3 Skin: + pertinent finding (erythematous unilateral on right lower leg, chronic cellulitis) Laboratory Results 10/30/16 06:51 10/30/16 06:51 10/30/16 13:55 Test 10/30/16 06:51 10/30/16 16:12 Red Blood Count 4.18 M/uL (4.7-6.1) Mean Corpuscular Volume 87.1 fL (80-100) Mean Corpuscular Hemoglobin 31.3 pg (25-34) Mean Corpuscular Hemoglobin Concent 36.0 g/dl (32-36) RDW Standard Deviation 43.6 fL (36.4-46.3) RDW Coefficient of Variation 13.7 % (11.5-14.5) Mean Platelet Volume 10.9 fL (7.4-10.4) Prothrombin Time 12.7 SECONDS (9.0-12.0) Prothromb Time International Ratio 1.2 (0.9-1.1) Activated Partial Thromboplast Time 25.9 SECONDS (21.0-31.0) Partial Thromboplastin Ratio 1.0 Anion Gap 13.0 mmol/L (3-11) Est Creatinine Clear Calc Drug Dose 184.8 ml/min Estimated GFR () 112.9 Estimated GFR (Non- 97.4 BUN/Creatinine Ratio 25.0 (10-20) Calcium Level 9.0 mg/dl (8.5-10.1) Magnesium Level 1.8 mg/dl (1.8-2.4) C-Reactive Protein 0.99 mg/dl (0-0.29) Bedside Glucose 206 mg/dl (70-99) Assessment and Plan 61 year old male with Hx CABG, CHF presents with pulmonary edema on CXR, shortness of breath, increasing leg swelling and 25lb increase in weight Acute on chronic congestive heart failure with preserved ejection fraction - ECHO in the past (may 2016) has not confirmed this diagnosis, however, he is morbidly obese making the studies extremely technically difficult. - Suspect BNP is falsely negative due to high BMI but if not responding to lasix will have a low tolerance for investigating other causes for his shortness of breath. - continue lasix 80 mg IV BID (on 80 mg PO @ home), may need to go on drip given no symptom improvement but would be difficult without a catheter. Given large negative balance yesterday will continue on current regimen. Continue Aldactone, metolazone - Daily weights + I&Os - Trend BMP - Repeat CXR in morning to assist with fluid assessment given difficult to examine due to body habitus Hypokalemia/hypomagnesemia - Continue lisinopril given admission for heart failure. - Replace as necessary (increased KCl from 60 meq BID to 80 meq TID) Hyponatremia - Hypervolemic therefore suspect hyponatremia due to hear failure, however continues to trend down despite increased lasix currently. he runs around 130 chronically - BMP daily RLE cellulitis, recurrent - ID consult appreciate recommendations - CRP mildly elevated, suspect cellulitis not big part of acute illness - Switched to Teflaro by ID to cover for chest, sputum culture added - Wound culture - Blood cultures pending - US doppler in [place] negative for DVT and chronically on xarelto making this less likely despite unilateral swelling T2DM - he is concerned with low amounts of insulin coverage for his meals. Total insulin daily 364 units at home. Discussed ideally we would carb coverage with correction while in hospital and we will continue to increase this as necessary to which he is agreeable. - Continue lantus 80 units Q12H. - Novolog (increase dose with 8 correction with 1.5:1 carb coverage doses remain significantly lower than outpatient) Non acute medical issues AFib- continue Xarelto, Dilitiazem and metoprolol ALLIE - s/p Trach, uses special oxygenation system at night- discussed with Respiratory CAD- Aspirin, Lipitor, BB, ACEi, imdur XR HTN- Continue lisinopril, metoprolol (monitor for hypotension as lasix increased ), imdur COPD- compensated- continue pulmicort and duoneb Code - Full VTE Prophylaxis - not for SCDs and TEDs given skin integrity - Xarelto 20 mg daily PO Disposition - Continue on telemetry until clinically improving, hopefully can be downgraded tomorrow History Resident Physician Supervision Note: I was present with Dr. Verma during the history and exam. I discussed the case with the resident and agree with the findings and plan as documented in the note. Any exceptions or clarifications are listed here. Pt seen and examined at bedside. Reports minimal change in swelling, pain or SOB since initiation of diuresis despite considerable loss. Feels like he is producing a large amount of mucous from his tracheostomy. Reports no fever, n/v , sensory changes, CP. General Appearance: mild distress, obese Ears, Nose, Throat: normal ENT inspection, nasal congestion, other (visible light yellow minimal drainage from trach) Respiratory: decreased breath sounds (distant 2/2 habitus), rhonchi (?) Cardiovascular: normal peripheral pulses, regular rate, rhythm, no murmur (but distant 2/2 habitus so unsure) Gastrointestinal: normal bowel sounds, non tender, soft Skin Characteristics: other (mildly changed erythema and induration of the RLE w/ stable edema of the b/l LE from previous) Assessment/Plan 61 y/o male h/o CHF, CAD s/p CABG, DMII, Afib presents w/ worsening SOB and edema CHF exacerbation - continue IV diuresis at 80mg with close monitoring of creatinine. Daily wt/I/O. Continue meoprolol, lisinopril Hyponatremia - likely 2/2 CHF exacerbation and volume shift, will monitor for correction w/ improvement of HF Hypokalemia - increase PO repletion, monitor for diarrhea RLE cellulitis - f/u BCx. ID consulted & recommendations appreciated. Will broaden to teflaro to cover for respiratory pathogens 2/2 congestion Atrial fibrillation - continue xarelto, diltiazem, toprol ALLIE - continue qHS system in place for mgmt CAD s/p CABG - B roberta, ASA, lipitor HTN - continue toprol, lisinopril, diltiazem COPD - pulmicort, duonebs Telemetry patient Resident Tracking Resident Involvement: Resident Care Provided Care Provided: Adult Hospital Medicine
[2016-10-30] MEDS: RIVAROXABAN 10 MG TAB PO SCH (17:45)
[2016-10-30] MEDS: LATANOPROST 0.005% OP SOLN 2.5 ML BTL OPB SCH (21:24)
[2016-10-30] MEDS: INSULIN GLARGINE SC SCH (21:27)
[2016-10-31] VITALS (15 sets, daily range): BP systolic 116–173; BP diastolic 45–96; PULSE 72–101; TEMP 36.6–37.1; O2SAT 94–100; Ht 182.9 cm; Wt 211.1 kg
[2016-10-31] MEDS: ALBUT/IPRATROP 3MG/0.5MG NEB 3 ML VIAL INH SCH ×6 (03:52→23:12)
[2016-10-31] MEDS: OXYCODONE/ACETAMINOPHEN 10/325MG TAB PO PRN ×2 (05:29→20:22)
[2016-10-31] MEDS: LORAZEPAM 1 MG TAB PO PRN ×3 (05:29→20:22)
[2016-10-31] MEDS: BUDESONIDE 0.5 MG/2 ML VIAL (PULMICORT) INH SCH ×2 (07:20→19:21)
[2016-10-31 07:29] LABS: BUN/CREATININE RATIO 21.5 (10-20); CREATININE 0.8 mg/dl (0.60-1.40); POTASSIUM 3.4 mmol/L (3.5-5.1)
[2016-10-31] MEDS: INSULIN ASPART 100 UNITS/ML 3 ML PEN SC SCH ×4 (08:02→20:45)
[2016-10-31] MEDS: FUROSEMIDE INJ 80 MG in SYRINGE 0 ML IV SCH ×2 (08:03→13:56)
[2016-10-31] MEDS: DORZOLAMIDE HCL 2% OPH SOLN 10 ML BTL OP SCH ×2 (08:04→20:36)
[2016-10-31] MEDS: MAGNESIUM OXIDE 400 MG TAB PO SCH ×2 (08:04→20:41)
[2016-10-31] MEDS: DILTIAZEM HCL 30 MG TAB PO SCH ×4 (08:05→20:38)
[2016-10-31] MEDS: SPIRONOLACTONE 25 MG TAB PO SCH ×2 (08:05→17:39)
[2016-10-31] MEDS: LISINOPRIL 10 MG TAB PO SCH (08:05)
[2016-10-31] MEDS: METOPROLOL TARTRATE 25 MG TAB PO SCH ×2 (08:06→20:40)
[2016-10-31] MEDS: ISOSORBIDE MONONITRATE 30 MG TABCR PO SCH (08:06)
[2016-10-31] MEDS: CEROVITE ADV FORMULA TAB PO SCH (08:06)
[2016-10-31] MEDS: ASPIRIN 81 MG ECTAB PO SCH (08:06)
[2016-10-31] MEDS: ATORVASTATIN 40 MG TAB PO SCH (08:06)
[2016-10-31] MEDS: POTASSIUM CHLORIDE 20 MEQ TABCR PO SCH ×3 (08:07→20:40)
[2016-10-31] MEDS: METOLAZONE 5 MG TAB PO SCH (08:08)
[2016-10-31] MEDS: INSULIN GLARGINE SC SCH ×2 (08:13→20:44)
[2016-10-31] MEDS: CEFTAROLINE FOSAMIL INJ 600 MG in SODIUM CHLORIDE 0.9% 250ML 250 ML IV SCH ×2 (08:14→20:36)
--- NOTE | 2016-10-31 08:44 | DIAGNOSTIC IMAGING REPORT ---
TWO VIEW CHEST CLINICAL HISTORY: Congestive failure. FINDINGS: PA and lateral chest radiographs are compared to study dated 10/28/2016 and correlated with chest CT dated 05/04/2016.. The examination is severely degraded by large body habitus. A tracheostomy is again noted. The patient is status post midline sternotomy. The heart is enlarged and there is atherosclerotic calcification of the thoracic aorta. Pulmonary vascular congestion persists. Pleural calcification is again noted throughout the left lung. No large pleural effusion is identified. There is no airspace consolidation typical for pneumonia. There is no pneumothorax. The bony thorax appears intact. Degenerative change is noted throughout the thoracic spine. IMPRESSION: 1. Cardiomegaly and pulmonary vascular congestion. This is unchanged to modestly worsened from yesterday. 2. No focal airspace consolidation or large pleural effusion is identified. Electronically signed by: Carlos Rodas M.D. 10/31/2016 8:43 AM Dictated Date/Time: 10/31/2016 8:41 AM
--- NOTE | 2016-10-31 08:46 | Family Medicine Progress Note ---
Progress Note Date of Service Oct 31, 2016. Subjective Pt evaluation today including: conversation w/ patient, physical exam, chart review, lab review, review of studies, conversation w/ application security consultant (Dr Boyd), review of inpatient medication list Voiding: no voiding problems Patient feels generally worse today but denies any shortness of breath or chest pain. He reports feeling dizziness. All Other Systems: Reviewed and Negative Medications Current Inpatient Medications Medications (Trade) Dose Ordered Sig/Saige Route Start Time Stop Time Status Last Admin Dose Admin Acetaminophen (Tylenol Tab) 650 mg Q4H PRN PO 10/29/16 00:00 11/28/16 00:00 10/29/16 17:04 650 MG Al Hydrox/Mg Hydrox/Simethicone (Maalox Max Susp) 15 ml Q4H PRN PO 10/29/16 00:00 11/28/16 00:00 Magnesium Hydroxide (Milk Of Magnesia Susp) 30 ml Q6H PRN PO 10/29/16 00:00 11/28/16 00:00 Polyethylene (Miralax Powder Packet) 17 gm DAILY PRN PO 10/29/16 00:00 11/28/16 00:00 Ondansetron HCl (Zofran Inj) 4 mg Q6H PRN IV 10/29/16 00:00 11/28/16 00:00 Nitroglycerin (Nitrostat Tab) 0.4 mg UD PRN SL 10/29/16 00:00 11/28/16 00:00 Albuterol (Ventolin Hfa Inhaler) 1 puffs QID PRN INH 10/29/16 00:00 11/28/16 00:00 Aspirin (Ecotrin Tab) 81 mg DAILY PO 10/29/16 09:00 11/28/16 08:59 10/31/16 08:06 81 MG Atorvastatin Calcium (Lipitor Tab) 80 mg DAILY PO 10/29/16 09:00 11/28/16 08:59 10/31/16 08:06 80 MG Budesonide (Pulmicort Respules 0.5MG/ 2ML Neb Soln) 1 mg BIDR INH 10/29/16 08:00 11/28/16 07:59 10/31/16 07:20 1 MG Diltiazem HCl (Cardizem Tab) 30 mg QID PO 10/29/16 09:00 11/28/16 08:59 10/31/16 08:05 30 MG Dorzolamide HCl (Trusopt 2% Oph Soln) 1 drops BID OP 10/29/16 09:00 11/28/16 08:59 10/31/16 08:04 1 DROPS Albuterol/ Ipratropium (Duoneb) 3 ml Q4R INH 10/29/16 00:00 11/28/16 00:00 10/31/16 07:20 3 ML Isosorbide Mononitrate (Imdur Ext Rel Tab) 30 mg DAILY PO 10/29/16 09:00 11/28/16 08:59 10/31/16 08:06 30 MG Latanoprost (Xalatan Oph Soln) 1 drops HS OPB 10/29/16 21:00 11/28/16 20:59 10/30/16 21:24 1 DROPS Lisinopril (Zestril Tab) 10 mg DAILY PO 10/29/16 09:00 11/28/16 08:59 Future hold 10/31/16 08:05 10 MG Lorazepam (Ativan Tab) 1 mg QID PRN PO 10/29/16 00:00 11/28/16 00:00 10/31/16 05:29 1 MG Metolazone (Zaroxolyn Tab) 5 mg DAILY PO 10/29/16 09:00 11/28/16 08:59 10/31/16 08:08 5 MG Metoprolol Tartrate (Lopressor Tab) 25 mg BID PO 10/29/16 09:00 11/28/16 08:59 10/31/16 08:06 25 MG Multivitamins/ Minerals (Multivitamin W/ Minerals Tab) 1 tab DAILY PO 10/29/16 09:00 11/28/16 08:59 10/31/16 08:06 1 TAB Oxycodone/ Acetaminophen (Percocet 10-325MG Tab) 1 tab Q8 PRN PO 10/29/16 00:00 11/12/16 00:00 10/31/16 05:29 1 TAB Rivaroxaban (Xarelto Tab) 20 mg QDD PO 10/29/16 16:45 11/28/16 16:44 10/30/16 17:45 20 MG Spironolactone (Aldactone Tab) 25 mg BID17 PO 10/29/16 09:00 11/28/16 08:59 10/31/16 08:05 25 MG Insulin Aspart (novoLOG ASPART) SLIDING SCALE G... ACHS SC 10/29/16 07:00 11/28/16 06:59 10/31/16 08:02 50 UNITS Glucose (Glucose 40% Gel) 15-30 GRAMS 15 GRAMS... UD PRN PO 10/29/16 02:45 11/28/16 02:44 Glucose (Glucose Chew Tab) 4-8 Tablets 4 Tabl... UD PRN PO 10/29/16 02:45 11/28/16 02:44 Dextrose (Dextrose 50% 50ML Syringe) 25-50ML OF 50% DW IV FOR... UD PRN IV 10/29/16 02:45 11/28/16 02:44 Glucagon 1 mg 1 mg UD PRN SQ 10/29/16 02:45 11/28/16 02:44 Furosemide/Syringe (Lasix Inj/ Syringe) 8 ml @ 4 mls/min BID@0900,1400 IV 10/29/16 09:00 11/28/16 08:59 10/31/16 08:03 4 MLS/MIN Magnesium Oxide (Mag-Ox Tab) 800 mg BID PO 10/29/16 21:00 11/28/16 20:59 10/31/16 08:04 800 MG Potassium Chloride 80 meq 80 meq TID PO 10/30/16 11:00 11/29/16 10:59 10/31/16 08:07 80 MEQ Ceftaroline Fosamil/Sodium Chloride (Teflaro Inj/Nss 250ml) 270 ml @ 250 mls/hr Q12@0900,2100 IV 10/30/16 10:30 11/09/16 10:29 10/31/16 08:14 250 MLS/HR Miconazole Nitrate (Desenex Powder) 1 appln PRN PRN EXT 10/30/16 10:15 11/29/16 10:14 10/30/16 11:03 1 APPLN Insulin Glargine (Lantus Vial) 80 unit BID SC 10/30/16 21:00 11/29/16 20:59 10/31/16 08:13 80 UNIT Objective Vital Signs Date Time Temp Pulse Resp B/P Pulse Ox O2 Delivery O2 Flow Rate FiO2 10/31/16 07:58 36.8 101 26 146/96 94 10/31/16 07:20 87 20 95 Room Air 10/31/16 04:00 Trach Collar 10.0 28 10/31/16 03:58 37.0 75 20 151/69 99 Trach Collar 10/31/16 03:53 72 20 99 Trach Collar 28 10/31/16 00:21 36.6 88 20 173/75 95 Trach Collar 10/31/16 00:00 Trach Collar 10.0 28 10/30/16 23:45 70 20 98 Room Air 10/30/16 20:17 36.7 82 24 130/69 97 Trach Collar 10/30/16 20:00 Room Air 10.0 28 Trach Collar 10/30/16 19:29 103 20 98 Room Air 10/30/16 16:47 87 20 96 Room Air 10/30/16 16:00 Room Air 10.0 28 Trach Collar 10/30/16 15:52 36.6 84 18 133/71 98 Room Air 10/30/16 12:06 36.5 85 26 119/74 96 10/30/16 12:00 Room Air 10/30/16 11:15 88 20 96 Room Air Physical Exam General Appearance: + mild distress (feels light headed), + obese Neck: supple (unable to assess JVD due to neck size) Respiratory/Chest: + decreased breath sounds (throughout, no appreciable wheezing, crackles or rhonchi) Cardiovascular: regular rate, rhythm, no murmur Abdomen: normal bowel sounds, non tender, soft Extremities: normal capillary refill, + pedal edema (right sided with erythema , left side 1+ to shins), + pertinent finding Neurologic/Psychiatric: alert, normal mood/affect, oriented x 3 Skin: + pertinent finding (cellulitic changes of left LE appears similar) Laboratory Results 10/31/16 06:35 Test 10/31/16 06:32 10/31/16 06:35 Bedside Glucose 161 mg/dl (70-99) Anion Gap 8.0 mmol/L (3-11) Est Creatinine Clear Calc Drug Dose 180.0 ml/min Estimated GFR () 111.7 Estimated GFR (Non- 96.4 BUN/Creatinine Ratio 21.5 (10-20) Calcium Level 9.0 mg/dl (8.5-10.1) Magnesium Level 2.0 mg/dl (1.8-2.4) Assessment and Plan 61 year old male with Hx CABG, CHF presents with pulmonary edema on CXR, shortness of breath, increasing leg swelling and 25lb increase in weight Acute on chronic congestive heart failure with preserved ejection fraction - ECHO in the past (may 2016) has not confirmed this diagnosis, however, he is morbidly obese making the studies extremely technically difficult. - Suspect BNP is falsely negative due to high BMI - will consult cardiology regarding fluid management given difficult to assess fluid status due to weight, no significant improvement despite large negative balance and now feeling light headed. Continue Aldactone, metolazone - Daily weights + I&Os. Will place Ramirez catheter to get a more accurate fluid balance as he notes passing a lot of urine yesterday but missing the bucket so under recorded - Trend BMP - Repeat CXR shows stable pulmonary vasculature Hypokalemia/hypomagnesemia - Continue lisinopril given admission for heart failure. - Replace as necessary (increased KCl from 60 meq BID to 80 meq TID) Hyponatremia - Decreasing despite aggressive diuresis therefore suspect he has true volume depletion - BMP daily RLE cellulitis, recurrent - ID consult appreciate recommendations - CRP mildly elevated, suspect cellulitis not big part of acute illness - Day 2 Teflaro - Wound culture - coag negative staph, no sensitivity to follow - Blood cultures no growth to date - US doppler in Aug negative for DVT and chronically on xarelto making this less likely despite unilateral swelling T2DM - he is concerned with low amounts of insulin coverage for his meals. Total insulin daily 364 units at home. - Continue lantus 80 units Q12H. - Novolog (continue 8 correction with 1.5:1 carb coverage) Non acute medical issues AFib- continue Xarelto, Diltiazem and metoprolol ALLIE - s/p Trach, uses special oxygenation system at night- discussed with Respiratory CAD- Aspirin, Lipitor, BB, ACEi, imdur XR HTN- Continue lisinopril, metoprolol (monitor for hypotension as lasix increased ), imdur COPD- compensated- continue Pulmicort and duoneb Code - Full VTE Prophylaxis - not for SCDs and TEDs given skin integrity - Xarelto 20 mg daily PO Disposition - Continue on telemetry until clinically improving, hopefully can be downgraded tomorrow Resident Tracking Resident Involvement: Resident Care Provided Care Provided: Adult Hospital Medicine History Resident Physician Supervision Note: I was present with Dr. Verma during the history and exam. I discussed the case with the resident and agree with the findings and plan as documented in the note. Any exceptions or clarifications are listed here. Pt seen and examined at bedside. Complains of increased weakness and near- syncopal sensation which is improve with reclining and worsens with standing. He reports unchanged to mildly improved shortness of breath and pitting edema of the b/l LE. The redness of the RLE is improved and less irritated. Reports no fever, CP, n/v, MEHTA, vision/hearing changes, sensory changes. General Appearance: mild distress, obese Respiratory: decreased breath sounds (2/2 habitus), rhonchi (throughout) Cardiovascular: normal peripheral pulses, regular rate, rhythm, other (2++ pitting edema of the b/l LE which is somewhat less tense than previous) Gastrointestinal: normal bowel sounds, non tender, soft Assessment/Plan 61 y/o male h/o CHF, CAD s/p CABG, DMII, Afib presents w/ worsening SOB and edema CHF exacerbation - Consult cardiology in light of persistent hyponatremia despite effective diuresis - continue IV diuresis at 80mg with close monitoring of creatinine. Daily wt/I/O. Continue meoprolol, lisinopril Hyponatremia - still stable/downtrending - repeat in PM Hypokalemia - continue PO repletion, monitor for diarrhea RLE cellulitis - f/u BCx. ID consulted & recommendations appreciated. Continue teflaro (day 2) Atrial fibrillation - continue xarelto, diltiazem, toprol ALLIE - continue qHS system in place for mgmt CAD s/p CABG - B roberta, ASA, lipitor HTN - continue toprol, lisinopril, diltiazem COPD - pulmicort, duonebs Telemetry patient
[2016-10-31] MEDS: RIVAROXABAN 10 MG TAB PO SCH (17:39)
--- NOTE | 2016-10-31 18:43 | CARDIOLOGY CONSULTATION ---
DATE OF CONSULTATION: 10/31/2016 REFERRING PHYSICIAN: Homer Verma. HISTORY OF PRESENT ILLNESS: Mr. Obed Tim is a 61-year-old gentleman with multiple comorbidities and history of coronary artery disease, who noticed several days worth of increased edema associated with worsening dyspnea. The patient has an element of chronic shortness of breath but is able to ambulate around his residence up to 25 feet, generally speaking with minimal difficulty. He did notice several days leading up to his admission but this became more difficult and eventually he had difficulty with ambulation at all. During this period of time he claims to have gained nearly 20 pounds. He has also noticed some increased girth of his legs, abdomen and arms suggesting fluid retention. The patient claims to be compliant with his medicines. He does admit to occasional binging on potato chips and cheese curls, which he did leading up to his admission. He has had admissions in the past for similar symptoms associated with weight gain. He does weigh himself periodically and claims to have less symptoms when he weighs 430 pounds or less. The patient lives at home with his daughter and their family. His daughter does all of the cooking. He does not exclusively follow a low sodium diet and as previously mentioned, does binge on high sodium foods. He is minimally ambulatory. He has chronic dyspnea. He sits on the hospital bed due to dyspnea and difficulty lying flat. He has some orthopedic complaints to include back and left knee pain. He also has some generalized neuropathy in his feet. He is generally not aware of any palpitations or rapid heartbeats and this has not been a problem recently. He has not recently had any symptoms of chest discomfort. PAST MEDICAL HISTORY: 1. [id number] COPD. 2. Obstructive sleep apnea. 3. Diabetes mellitus. 4. Hyperlipidemia. 5. Morbid obesity. 6. Coronary artery disease status post coronary artery bypass grafting and more recently percutaneous intervention in 2005. 7. History of congestive heart failure, although on most evaluation, the ejection fraction is normal. 8. Atrial fibrillation, on anticoagulation and rate control. PAST SURGICAL HISTORY: Significant for the aforementioned coronary artery bypass grafting, history of cataract surgery and pilonidal cyst. FAMILY HISTORY: Significant for diabetes but no premature coronary disease. SOCIAL HISTORY: The patient currently lives with his family. He has a history of tobacco abuse. He is currently a nonsmoker and no history of alcohol abuse. OUTPATIENT MEDICATIONS: Include aspirin, budesonide, diltiazem, Clarinex, dorzolamide, ophthalmologic solution, furosemide 80 mg twice daily, isosorbide, insulin, latanoprost ophthalmologic solution, Lipitor, lisinopril, metolazone, metoprolol, and a variety of supplements as well as inhalers. The patient is also taking Xarelto 20 mg daily. MEDICAL ALLERGIES: No known medical allergies. PHYSICAL EXAMINATION: GENERAL: The patient appeared to be in mild respiratory distress, and he was alert and oriented, and answered all questions appropriately, he speaks through tracheostomy. VITAL SIGNS: Blood pressure 137/60, pulse of 80. HEENT: Sclerae are anicteric. Pupils are equal and reactive to light and accommodation. Extraocular movements are intact. NECK: Highly redundant. Palpation in this area did not reveal any lymphadenopathy. I could not palpate carotids or evaluate jugular venous distention. LUNGS: Auscultation of his lungs revealed them to be clear with some expiratory wheezing and overall reduced excursion but he had normal respiratory effort without use of accessory muscles. CARDIAC: Revealed distant heart tone, but in an irregularly irregular rhythm. No murmurs appreciated. EXTREMITIES: Evaluation of both wrists revealed radial pulses that were equal in intensity. I do not appreciate any cyanosis or clubbing. Evaluation of the lower extremities revealed marked edema of the right lower extremity which trophic changes and erythema. The left lower extremity was less swollen and there was no erythema or rashes. The patient was obviously morbidly obese. LABORATORY STUDIES: Obtained at [facility] include a sodium of 127 and potassium of 3.4, BUN was 17, creatinine was 0.8. An N-terminal ProBNP obtained on 10/28/2016 was 292. Chest x-ray was obtained today which suggested evidence of pulmonary vascular congestion and cardiomegaly. Review of patient's outpatient record reveals 2 prior echocardiograms, both of which were compromised by his body habitus, but suggested preserved LV systolic function. ASSESSMENT AND PLAN: 1. Cor pulmonale. The patient has obvious volume overload and at the time of presentation may have had an element of pulmonary vascular congestion; however, he has multiple comorbidities which could also lead to his significant breathing difficulties and in fact his N-terminal ProBNP was in the normal range for a person with his degree of obesity, his breathing was unlikely to have been related to left ventricular failure. I think undoubtedly he probably has an element of right ventricular failure due to his chronic pulmonary disease and this may account for some of his peripheral edema and overall anasarca. At this point, I am not confident that he is likely to experience any additional benefit with respect to his breathing from aggressive diuresis, in fact his sodium is quite low. According to the record, he diuresed very aggressively on the first day of admission without notable improvement in his breathing. I think this would all speak against significant pulmonary vascular congestion or left ventricular failure. Unfortunately, therapy is for right ventricular failure and cor pulmonale generally center upon treatment of the lung process which is unlikely to improve significantly in this patient's case. 2. Coronary artery disease. The patient claims to have had remote revascularization, the exact records of which are not available. He does not manifest symptoms of angina recently and as such, I would not pursue any additional cardiac workup. Due to his body habitus he is not likely to be a good candidate for any additional interventions, especially given his lung disease. 3. Atrial fibrillation. The patient appears to have reasonable rate control currently on his medical regimen to consist of diltiazem and metoprolol. He is on appropriate anticoagulation. I do not feel any further treatment and evaluation is required for this problem. PLAN AND RECOMMENDATIONS: 1. Less aggressive diuresis in the setting of normal N-terminal ProBNP and significant volume loss on day 1 of hospitalization. 2. Consider single daily dose of Lasix versus discontinuation of his metolazone in order to improve his sodium levels and still affect an element of diuresis. 3. Continue current rate control regimen of diltiazem and metoprolol. 4. Continue Xarelto. 5. For persistent respiratory failure in the absence of other probable etiologies, right heart catheterization could be entertained, although given patient's body habitus and inability to lie flat and his overall weight, the risk may be prohibitive.
[2016-10-31 19:18] LABS: BUN/CREATININE RATIO 15.3 (10-20); CALCIUM 8.9 mg/dl (8.5-10.1); CREATININE 1.2 mg/dl (0.60-1.40); POTASSIUM 3.4 mmol/L (3.5-5.1)
[2016-10-31] MEDS: LATANOPROST 0.005% OP SOLN 2.5 ML BTL OPB SCH (22:25)
[2016-11-01] VITALS (14 sets, daily range): BP systolic 119–154; BP diastolic 51–92; PULSE 61–95; TEMP 36.4–37.2; O2SAT 95–100
[2016-11-01] MEDS: ALBUT/IPRATROP 3MG/0.5MG NEB 3 ML VIAL INH SCH ×6 (03:11→23:15)
[2016-11-01] MEDS: OXYCODONE/ACETAMINOPHEN 10/325MG TAB PO PRN ×2 (05:11→22:10)
[2016-11-01] MEDS: LORAZEPAM 1 MG TAB PO PRN ×3 (05:11→22:10)
[2016-11-01] MEDS: BUDESONIDE 0.5 MG/2 ML VIAL (PULMICORT) INH SCH ×2 (07:00→19:45)
[2016-11-01] MEDS: ISOSORBIDE MONONITRATE 30 MG TABCR PO SCH (08:43)
[2016-11-01] MEDS: ASPIRIN 81 MG ECTAB PO SCH (08:43)
[2016-11-01] MEDS: ATORVASTATIN 40 MG TAB PO SCH (08:43)
[2016-11-01] MEDS: METOPROLOL TARTRATE 25 MG TAB PO SCH ×2 (08:44→22:14)
[2016-11-01] MEDS: CEROVITE ADV FORMULA TAB PO SCH (08:44)
[2016-11-01] MEDS: POTASSIUM CHLORIDE 20 MEQ TABCR PO SCH ×2 (08:44→22:13)
[2016-11-01] MEDS: MAGNESIUM OXIDE 400 MG TAB PO SCH ×2 (08:45→22:13)
[2016-11-01] MEDS: SPIRONOLACTONE 25 MG TAB PO SCH ×2 (08:45→18:02)
[2016-11-01] MEDS: FUROSEMIDE 80 MG TAB PO SCH ×2 (08:45→18:03)
[2016-11-01] MEDS: DILTIAZEM HCL 30 MG TAB PO SCH ×4 (08:46→22:10)
[2016-11-01] MEDS: DORZOLAMIDE HCL 2% OPH SOLN 10 ML BTL OP SCH ×2 (08:47→22:13)
[2016-11-01] MEDS: LISINOPRIL 10 MG TAB PO SCH (08:47)
[2016-11-01] MEDS: INSULIN ASPART 100 UNITS/ML 3 ML PEN SC SCH ×4 (08:58→22:08)
[2016-11-01] MEDS: INSULIN GLARGINE SC SCH ×2 (08:59→22:11)
[2016-11-01] MEDS: CEFTAROLINE FOSAMIL INJ 600 MG in SODIUM CHLORIDE 0.9% 250ML 250 ML IV SCH ×2 (09:04→23:52)
[2016-11-01] MEDS: AMMONIUM LACTATE 12% LOTION 225 GM BTL EXT SCH (09:05)
[2016-11-01 10:09] LABS: BASO % 0.2 %; BASO ABS # 0.02 K/uL (0-0.2); COMPLETE YES; HEMATOCRIT 36.5 % (42-52); IG% 0.4 %; LYMPH ABS # 1.07 K/uL (1.2-3.4); MEAN CELL VOLUME 87.3 fL (80-100); MEAN CORPUSCULAR HEMOGLOBIN 30.9 pg (25-34); MEAN CORPUSCULAR HGB CONC 35.3 g/dl (32-36); MONO % 11.6 %; NEUT % 74.8 %; PLATELET COUNT 139 K/uL (130-400); RED BLOOD COUNT 4.18 M/uL (4.7-6.1); WHITE BLOOD COUNT 8.89 K/uL (4.8-10.8)
[2016-11-01 10:36] LABS: BUN/CREATININE RATIO 20.1 (10-20); CALCIUM 8.8 mg/dl (8.5-10.1); CREATININE 0.82 mg/dl (0.60-1.40); POTASSIUM 3.8 mmol/L (3.5-5.1)
--- NOTE | 2016-11-01 14:10 | Infectious Disease Progress Nt ---
Progress Note Date of Service Nov 01, 2016. Subjective Pt evaluation today including: conversation w/ patient, physical exam, chart review, lab review, review of studies, review of inpatient medication list White blood cell count today was 8.89, creatinine is improved at 0.82. His wound culture is growing coag-negative x2. Sputum is moderate. The patient continues IV ceftaroline. He is tolerating this antibiotic well. He is feeling slightly improved. He continues to some mild pain in his right lower extremity. He feels his breathing is slowly getting better. All Other Systems: Reviewed and Negative Medications Current Inpatient Medications Medications (Trade) Dose Ordered Sig/Saige Route Start Time Stop Time Status Last Admin Dose Admin Acetaminophen (Tylenol Tab) 650 mg Q4H PRN PO 10/29/16 00:00 11/28/16 00:00 10/29/16 17:04 650 MG Al Hydrox/Mg Hydrox/Simethicone (Maalox Max Susp) 15 ml Q4H PRN PO 10/29/16 00:00 11/28/16 00:00 Magnesium Hydroxide (Milk Of Magnesia Susp) 30 ml Q6H PRN PO 10/29/16 00:00 11/28/16 00:00 Polyethylene (Miralax Powder Packet) 17 gm DAILY PRN PO 10/29/16 00:00 11/28/16 00:00 Ondansetron HCl (Zofran Inj) 4 mg Q6H PRN IV 10/29/16 00:00 11/28/16 00:00 Nitroglycerin (Nitrostat Tab) 0.4 mg UD PRN SL 10/29/16 00:00 11/28/16 00:00 Albuterol (Ventolin Hfa Inhaler) 1 puffs QID PRN INH 10/29/16 00:00 11/28/16 00:00 Aspirin (Ecotrin Tab) 81 mg DAILY PO 10/29/16 09:00 11/28/16 08:59 11/01/16 08:43 81 MG Atorvastatin Calcium (Lipitor Tab) 80 mg DAILY PO 10/29/16 09:00 11/28/16 08:59 11/01/16 08:43 80 MG Budesonide (Pulmicort Respules 0.5MG/ 2ML Neb Soln) 1 mg BIDR INH 10/29/16 08:00 11/28/16 07:59 11/01/16 07:00 1 MG Diltiazem HCl (Cardizem Tab) 30 mg QID PO 10/29/16 09:00 11/28/16 08:59 11/01/16 12:44 30 MG Dorzolamide HCl (Trusopt 2% Oph Soln) 1 drops BID OP 10/29/16 09:00 11/28/16 08:59 11/01/16 08:47 1 DROPS Albuterol/ Ipratropium (Duoneb) 3 ml Q4R INH 10/29/16 00:00 11/28/16 00:00 11/01/16 11:26 3 ML Isosorbide Mononitrate (Imdur Ext Rel Tab) 30 mg DAILY PO 10/29/16 09:00 11/28/16 08:59 11/01/16 08:43 30 MG Latanoprost (Xalatan Oph Soln) 1 drops HS OPB 10/29/16 21:00 11/28/16 20:59 10/31/16 22:25 1 DROPS Lisinopril (Zestril Tab) 10 mg DAILY PO 10/29/16 09:00 11/28/16 08:59 Future hold 11/01/16 08:47 10 MG Lorazepam (Ativan Tab) 1 mg QID PRN PO 10/29/16 00:00 11/28/16 00:00 11/01/16 12:59 1 MG Metoprolol Tartrate (Lopressor Tab) 25 mg BID PO 10/29/16 09:00 11/28/16 08:59 11/01/16 08:44 25 MG Multivitamins/ Minerals (Multivitamin W/ Minerals Tab) 1 tab DAILY PO 10/29/16 09:00 11/28/16 08:59 11/01/16 08:44 1 TAB Oxycodone/ Acetaminophen (Percocet 10-325MG Tab) 1 tab Q8 PRN PO 10/29/16 00:00 11/12/16 00:00 11/01/16 05:11 1 TAB Rivaroxaban (Xarelto Tab) 20 mg QDD PO 10/29/16 16:45 11/28/16 16:44 10/31/16 17:39 20 MG Spironolactone (Aldactone Tab) 25 mg BID17 PO 10/29/16 09:00 11/28/16 08:59 11/01/16 08:45 25 MG Insulin Aspart (novoLOG ASPART) SLIDING SCALE G... ACHS SC 10/29/16 07:00 11/28/16 06:59 11/01/16 12:44 40 UNITS Glucose (Glucose 40% Gel) 15-30 GRAMS 15 GRAMS... UD PRN PO 10/29/16 02:45 11/28/16 02:44 Glucose (Glucose Chew Tab) 4-8 Tablets 4 Tabl... UD PRN PO 10/29/16 02:45 11/28/16 02:44 Dextrose (Dextrose 50% 50ML Syringe) 25-50ML OF 50% DW IV FOR... UD PRN IV 10/29/16 02:45 11/28/16 02:44 Glucagon (Glucagon Inj) 1 mg UD PRN SQ 10/29/16 02:45 11/28/16 02:44 Magnesium Oxide 800 mg 800 mg BID PO 10/29/16 21:00 11/28/16 20:59 11/01/16 08:45 800 MG Ceftaroline Fosamil/Sodium Chloride (Teflaro Inj/Nss 250ml) 270 ml @ 250 mls/hr Q12@0900,2100 IV 10/30/16 10:30 11/09/16 10:29 11/01/16 09:04 250 MLS/HR Miconazole Nitrate (Desenex Powder) 1 appln PRN PRN EXT 10/30/16 10:15 11/29/16 10:14 10/30/16 11:03 1 APPLN Insulin Glargine (Lantus Vial) 80 unit BID SC 10/30/16 21:00 11/29/16 20:59 11/01/16 08:59 80 UNIT Ammonium Lactate (Lac-Hydrin) 1 appl DAILY EXT 11/01/16 09:00 12/01/16 08:59 11/01/16 09:05 1 APPL Potassium Chloride (Klor-Con Tab) 80 meq BID PO 10/31/16 21:00 11/30/16 20:59 11/01/16 08:44 80 MEQ Furosemide (Lasix Tab) 80 mg BIDM PO 11/01/16 07:30 12/01/16 07:29 11/01/16 08:45 80 MG Objective Vital Signs Date Time Temp Pulse Resp B/P Pulse Ox O2 Delivery O2 Flow Rate FiO2 11/01/16 11:33 36.8 76 24 132/85 97 11/01/16 11:28 86 18 95 Trach Collar 28 11/01/16 08:20 Room Air 11/01/16 08:04 36.6 95 24 154/92 96 11/01/16 07:00 77 18 97 Trach Collar 28 11/01/16 04:00 37.1 78 24 119/58 96 Room Air 11/01/16 04:00 96 Room Air 11/01/16 03:11 71 18 100 Trach Collar 28 11/01/16 00:42 37.1 61 20 128/51 99 Trach Collar 11/01/16 00:01 99 Trach Collar 10.0 10/31/16 23:12 72 20 99 Trach Collar 28 10/31/16 20:00 100 Trach Collar 10.0 10/31/16 19:55 36.9 84 22 121/45 100 Trach Collar 10/31/16 19:24 74 18 99 Trach Collar 28 10/31/16 16:22 96 20 98 Room Air 10/31/16 16:12 37.1 80 24 137/60 99 Trach Collar 10/31/16 16:00 98 Room Air 10.0 Physical Exam General Appearance: + mild distress (respiratory), + obese Eyes: normal inspection, sclerae normal ENT: hearing grossly normal Neck: supple, + pertinent finding (Tracheostomy ) Respiratory/Chest: chest non-tender, no accessory muscle use, + respiratory distress, + decreased breath sounds (distant) Cardiovascular: + pertinent finding (distant heart sounds) Abdomen: normal bowel sounds, non tender Extremities: + pertinent finding (Continued mild edema of RLE. Continued mild tenderness) Skin: + pertinent finding (chronic dark purple color to RLE. No warmth) Laboratory Results Item Value Date Time Gram Stain - Final Resulted 10/30/16 0000 Sputum Trach. Tube Suction Gram Stain - Final Complete 10/29/16 1318 Drainage - Surface Leg Right Lower Blood Culture - Preliminary Resulted 10/29/16 0145 Blood NO GROWTH TO DATE. Blood Culture - Preliminary Resulted 10/29/16 0140 Blood NO GROWTH TO DATE. Last 24 Hours Test 10/31/16 16:02 10/31/16 18:44 10/31/16 19:47 11/01/16 06:46 Bedside Glucose 211 mg/dl 234 mg/dl 151 mg/dl Sodium Level 127 mmol/L Potassium Level 3.4 mmol/L Chloride Level 83 mmol/L Carbon Dioxide Level 32 mmol/L Anion Gap 12.0 mmol/L Blood Urea Nitrogen 18 mg/dl Creatinine 1.20 mg/dl Est Creatinine Clear Calc Drug Dose 120.0 ml/min Estimated GFR () 75.2 Estimated GFR (Non- 64.9 BUN/Creatinine Ratio 15.3 Random Glucose 226 mg/dl Calcium Level 8.9 mg/dl Test 11/01/16 09:55 11/01/16 11:09 White Blood Count 8.89 K/uL Red Blood Count 4.18 M/uL Hemoglobin 12.9 g/dL Hematocrit 36.5 % Mean Corpuscular Volume 87.3 fL Mean Corpuscular Hemoglobin 30.9 pg Mean Corpuscular Hemoglobin Concent 35.3 g/dl Platelet Count 139 K/uL Mean Platelet Volume 11.0 fL Neutrophils (%) (Auto) 74.8 % Lymphocytes (%) (Auto) 12.0 % Monocytes (%) (Auto) 11.6 % Eosinophils (%) (Auto) 1.0 % Basophils (%) (Auto) 0.2 % Neutrophils # (Auto) 6.64 K/uL Lymphocytes # (Auto) 1.07 K/uL Monocytes # (Auto) 1.03 K/uL Eosinophils # (Auto) 0.09 K/uL Basophils # (Auto) 0.02 K/uL RDW Standard Deviation 44.5 fL RDW Coefficient of Variation 14.0 % Immature Granulocyte % (Auto) 0.4 % Immature Granulocyte # (Auto) 0.04 K/uL Sodium Level 126 mmol/L Potassium Level 3.8 mmol/L Chloride Level 87 mmol/L Carbon Dioxide Level 26 mmol/L Anion Gap 13.0 mmol/L Blood Urea Nitrogen 17 mg/dl Creatinine 0.82 mg/dl Est Creatinine Clear Calc Drug Dose 175.3 ml/min Estimated GFR () 110.6 Estimated GFR (Non- 95.4 BUN/Creatinine Ratio 20.1 Random Glucose 250 mg/dl Calcium Level 8.8 mg/dl Bedside Glucose 210 mg/dl Assessment and Plan Morbidly obese diabetic male with CHF exacerbation and right lower extremity cellulitis. He is currently on IV Ceftaroline to improve coverage for lungs as well as RLE cellulitis. He is improving. He likely will need at least 1-2 more days of therapy. We will follow. PROVIDER ADDENDUM: Patient reviewed with Ms. Duggan. Agree with above assessment.
--- NOTE | 2016-11-01 16:55 | Family Medicine Progress Note ---
Progress Note Date of Service Nov 01, 2016. Subjective Pt evaluation today including: conversation w/ patient, physical exam, chart review, lab review, review of studies, review of inpatient medication list Voiding: manrique catheter in place Feels improved today. No further dizziness. Denies chest pain or shortness of breath at rest. All Other Systems: Reviewed and Negative Medications Current Inpatient Medications Medications (Trade) Dose Ordered Sig/Saige Route Start Time Stop Time Status Last Admin Dose Admin Acetaminophen (Tylenol Tab) 650 mg Q4H PRN PO 10/29/16 00:00 11/28/16 00:00 10/29/16 17:04 650 MG Al Hydrox/Mg Hydrox/Simethicone (Maalox Max Susp) 15 ml Q4H PRN PO 10/29/16 00:00 11/28/16 00:00 Magnesium Hydroxide (Milk Of Magnesia Susp) 30 ml Q6H PRN PO 10/29/16 00:00 11/28/16 00:00 Polyethylene (Miralax Powder Packet) 17 gm DAILY PRN PO 10/29/16 00:00 11/28/16 00:00 Ondansetron HCl (Zofran Inj) 4 mg Q6H PRN IV 10/29/16 00:00 11/28/16 00:00 Nitroglycerin (Nitrostat Tab) 0.4 mg UD PRN SL 10/29/16 00:00 11/28/16 00:00 Albuterol (Ventolin Hfa Inhaler) 1 puffs QID PRN INH 10/29/16 00:00 11/28/16 00:00 Aspirin (Ecotrin Tab) 81 mg DAILY PO 10/29/16 09:00 11/28/16 08:59 11/01/16 08:43 81 MG Atorvastatin Calcium (Lipitor Tab) 80 mg DAILY PO 10/29/16 09:00 11/28/16 08:59 11/01/16 08:43 80 MG Budesonide (Pulmicort Respules 0.5MG/ 2ML Neb Soln) 1 mg BIDR INH 10/29/16 08:00 11/28/16 07:59 11/01/16 07:00 1 MG Diltiazem HCl (Cardizem Tab) 30 mg QID PO 10/29/16 09:00 11/28/16 08:59 11/01/16 12:44 30 MG Dorzolamide HCl (Trusopt 2% Oph Soln) 1 drops BID OP 10/29/16 09:00 11/28/16 08:59 11/01/16 08:47 1 DROPS Albuterol/ Ipratropium (Duoneb) 3 ml Q4R INH 10/29/16 00:00 11/28/16 00:00 11/01/16 15:39 3 ML Isosorbide Mononitrate (Imdur Ext Rel Tab) 30 mg DAILY PO 10/29/16 09:00 11/28/16 08:59 11/01/16 08:43 30 MG Latanoprost (Xalatan Oph Soln) 1 drops HS OPB 10/29/16 21:00 11/28/16 20:59 10/31/16 22:25 1 DROPS Lisinopril (Zestril Tab) 10 mg DAILY PO 10/29/16 09:00 11/28/16 08:59 Future hold 11/01/16 08:47 10 MG Lorazepam (Ativan Tab) 1 mg QID PRN PO 10/29/16 00:00 11/28/16 00:00 11/01/16 12:59 1 MG Metoprolol Tartrate (Lopressor Tab) 25 mg BID PO 10/29/16 09:00 11/28/16 08:59 11/01/16 08:44 25 MG Multivitamins/ Minerals (Multivitamin W/ Minerals Tab) 1 tab DAILY PO 10/29/16 09:00 11/28/16 08:59 11/01/16 08:44 1 TAB Oxycodone/ Acetaminophen (Percocet 10-325MG Tab) 1 tab Q8 PRN PO 10/29/16 00:00 11/12/16 00:00 11/01/16 05:11 1 TAB Rivaroxaban (Xarelto Tab) 20 mg QDD PO 10/29/16 16:45 11/28/16 16:44 10/31/16 17:39 20 MG Spironolactone (Aldactone Tab) 25 mg BID17 PO 10/29/16 09:00 11/28/16 08:59 11/01/16 08:45 25 MG Insulin Aspart (novoLOG ASPART) SLIDING SCALE G... ACHS SC 10/29/16 07:00 11/28/16 06:59 11/01/16 12:44 40 UNITS Glucose (Glucose 40% Gel) 15-30 GRAMS 15 GRAMS... UD PRN PO 10/29/16 02:45 11/28/16 02:44 Glucose (Glucose Chew Tab) 4-8 Tablets 4 Tabl... UD PRN PO 10/29/16 02:45 11/28/16 02:44 Dextrose (Dextrose 50% 50ML Syringe) 25-50ML OF 50% DW IV FOR... UD PRN IV 10/29/16 02:45 11/28/16 02:44 Glucagon (Glucagon Inj) 1 mg UD PRN SQ 10/29/16 02:45 11/28/16 02:44 Magnesium Oxide 800 mg 800 mg BID PO 10/29/16 21:00 11/28/16 20:59 11/01/16 08:45 800 MG Ceftaroline Fosamil/Sodium Chloride (Teflaro Inj/Nss 250ml) 270 ml @ 250 mls/hr Q12@0900,2100 IV 10/30/16 10:30 11/09/16 10:29 11/01/16 09:04 250 MLS/HR Miconazole Nitrate (Desenex Powder) 1 appln PRN PRN EXT 10/30/16 10:15 11/29/16 10:14 10/30/16 11:03 1 APPLN Insulin Glargine (Lantus Vial) 80 unit BID SC 10/30/16 21:00 11/29/16 20:59 11/01/16 08:59 80 UNIT Ammonium Lactate (Lac-Hydrin) 1 appl DAILY EXT 11/01/16 09:00 12/01/16 08:59 11/01/16 09:05 1 APPL Potassium Chloride (Klor-Con Tab) 80 meq BID PO 10/31/16 21:00 11/30/16 20:59 11/01/16 08:44 80 MEQ Furosemide (Lasix Tab) 80 mg BIDM PO 11/01/16 07:30 12/01/16 07:29 11/01/16 08:45 80 MG Objective Vital Signs Current Inpatient Medications Medications (Trade) Dose Ordered Sig/Saige Route Start Time Stop Time Status Last Admin Dose Admin Acetaminophen (Tylenol Tab) 650 mg Q4H PRN PO 10/29/16 00:00 11/28/16 00:00 10/29/16 17:04 650 MG Al Hydrox/Mg Hydrox/Simethicone (Maalox Max Susp) 15 ml Q4H PRN PO 10/29/16 00:00 11/28/16 00:00 Magnesium Hydroxide (Milk Of Magnesia Susp) 30 ml Q6H PRN PO 10/29/16 00:00 11/28/16 00:00 Polyethylene (Miralax Powder Packet) 17 gm DAILY PRN PO 10/29/16 00:00 11/28/16 00:00 Ondansetron HCl (Zofran Inj) 4 mg Q6H PRN IV 10/29/16 00:00 11/28/16 00:00 Nitroglycerin (Nitrostat Tab) 0.4 mg UD PRN SL 10/29/16 00:00 11/28/16 00:00 Albuterol (Ventolin Hfa Inhaler) 1 puffs QID PRN INH 10/29/16 00:00 11/28/16 00:00 Aspirin (Ecotrin Tab) 81 mg DAILY PO 10/29/16 09:00 11/28/16 08:59 11/01/16 08:43 81 MG Atorvastatin Calcium (Lipitor Tab) 80 mg DAILY PO 10/29/16 09:00 11/28/16 08:59 11/01/16 08:43 80 MG Budesonide (Pulmicort Respules 0.5MG/ 2ML Neb Soln) 1 mg BIDR INH 10/29/16 08:00 11/28/16 07:59 11/01/16 07:00 1 MG Diltiazem HCl (Cardizem Tab) 30 mg QID PO 10/29/16 09:00 11/28/16 08:59 11/01/16 12:44 30 MG Dorzolamide HCl (Trusopt 2% Oph Soln) 1 drops BID OP 10/29/16 09:00 11/28/16 08:59 11/01/16 08:47 1 DROPS Albuterol/ Ipratropium (Duoneb) 3 ml Q4R INH 10/29/16 00:00 11/28/16 00:00 11/01/16 15:39 3 ML Isosorbide Mononitrate (Imdur Ext Rel Tab) 30 mg DAILY PO 10/29/16 09:00 11/28/16 08:59 11/01/16 08:43 30 MG Latanoprost (Xalatan Oph Soln) 1 drops HS OPB 10/29/16 21:00 11/28/16 20:59 10/31/16 22:25 1 DROPS Lisinopril (Zestril Tab) 10 mg DAILY PO 10/29/16 09:00 11/28/16 08:59 Future hold 11/01/16 08:47 10 MG Lorazepam (Ativan Tab) 1 mg QID PRN PO 10/29/16 00:00 11/28/16 00:00 11/01/16 12:59 1 MG Metoprolol Tartrate (Lopressor Tab) 25 mg BID PO 10/29/16 09:00 11/28/16 08:59 11/01/16 08:44 25 MG Multivitamins/ Minerals (Multivitamin W/ Minerals Tab) 1 tab DAILY PO 10/29/16 09:00 11/28/16 08:59 11/01/16 08:44 1 TAB Oxycodone/ Acetaminophen (Percocet 10-325MG Tab) 1 tab Q8 PRN PO 10/29/16 00:00 11/12/16 00:00 11/01/16 05:11 1 TAB Rivaroxaban (Xarelto Tab) 20 mg QDD PO 10/29/16 16:45 11/28/16 16:44 10/31/16 17:39 20 MG Spironolactone (Aldactone Tab) 25 mg BID17 PO 10/29/16 09:00 11/28/16 08:59 11/01/16 08:45 25 MG Insulin Aspart (novoLOG ASPART) SLIDING SCALE G... ACHS SC 10/29/16 07:00 11/28/16 06:59 11/01/16 12:44 40 UNITS Glucose (Glucose 40% Gel) 15-30 GRAMS 15 GRAMS... UD PRN PO 10/29/16 02:45 11/28/16 02:44 Glucose (Glucose Chew Tab) 4-8 Tablets 4 Tabl... UD PRN PO 10/29/16 02:45 11/28/16 02:44 Dextrose (Dextrose 50% 50ML Syringe) 25-50ML OF 50% DW IV FOR... UD PRN IV 10/29/16 02:45 11/28/16 02:44 Glucagon (Glucagon Inj) 1 mg UD PRN SQ 10/29/16 02:45 11/28/16 02:44 Magnesium Oxide 800 mg 800 mg BID PO 10/29/16 21:00 11/28/16 20:59 11/01/16 08:45 800 MG Ceftaroline Fosamil/Sodium Chloride (Teflaro Inj/Nss 250ml) 270 ml @ 250 mls/hr Q12@0900,2100 IV 10/30/16 10:30 11/09/16 10:29 11/01/16 09:04 250 MLS/HR Miconazole Nitrate (Desenex Powder) 1 appln PRN PRN EXT 10/30/16 10:15 11/29/16 10:14 10/30/16 11:03 1 APPLN Insulin Glargine (Lantus Vial) 80 unit BID SC 10/30/16 21:00 11/29/16 20:59 11/01/16 08:59 80 UNIT Ammonium Lactate (Lac-Hydrin) 1 appl DAILY EXT 11/01/16 09:00 12/01/16 08:59 11/01/16 09:05 1 APPL Potassium Chloride (Klor-Con Tab) 80 meq BID PO 10/31/16 21:00 11/30/16 20:59 11/01/16 08:44 80 MEQ Furosemide (Lasix Tab) 80 mg BIDM PO 11/01/16 07:30 12/01/16 07:29 11/01/16 08:45 80 MG Physical Exam General Appearance: no apparent distress, + obese ENT: + pertinent finding (s/p trach) Neck: supple (unable to assess JVD due to neck size) Respiratory/Chest: + decreased breath sounds (throughout due to obesity, no appreciable crackles or wheezing) Cardiovascular: regular rate, rhythm, no murmur (quiet heart sounds so difficult to assess) Abdomen: normal bowel sounds, non tender, soft Extremities: no calf tenderness, normal capillary refill, + pedal edema (1+ left leg, 3+ with chronic cellulitic changes on right leg) Neurologic/Psychiatric: alert, oriented x 3 Skin: + pertinent finding (chronic dark cellulitis changes on right leg) Laboratory Results 11/01/16 09:55 Red Blood Count 4.18, Mean Corpuscular Volume 87.3, Mean Corpuscular Hemoglobin 30.9, Mean Corpuscular Hemoglobin Concent 35.3, Mean Platelet Volume 11.0, Neutrophils (%) (Auto) 74.8, Lymphocytes (%) (Auto) 12.0, Monocytes (%) (Auto) 11.6, Eosinophils (%) (Auto) 1.0, Basophils (%) (Auto) 0.2, Neutrophils # (Auto ) 6.64, Lymphocytes # (Auto) 1.07, Monocytes # (Auto) 1.03, Eosinophils # (Auto ) 0.09, Basophils # (Auto) 0.02 11/01/16 09:55 Test 11/01/16 09:55 11/01/16 11:09 White Blood Count 8.89 K/uL (4.8-10.8) Red Blood Count 4.18 M/uL (4.7-6.1) Hemoglobin 12.9 g/dL (14.0-18.0) Hematocrit 36.5 % (42-52) Mean Corpuscular Volume 87.3 fL (80-100) Mean Corpuscular Hemoglobin 30.9 pg (25-34) Mean Corpuscular Hemoglobin Concent 35.3 g/dl (32-36) Platelet Count 139 K/uL (130-400) Mean Platelet Volume 11.0 fL (7.4-10.4) Neutrophils (%) (Auto) 74.8 % Lymphocytes (%) (Auto) 12.0 % Monocytes (%) (Auto) 11.6 % Eosinophils (%) (Auto) 1.0 % Basophils (%) (Auto) 0.2 % Neutrophils # (Auto) 6.64 K/uL (1.4-6.5) Lymphocytes # (Auto) 1.07 K/uL (1.2-3.4) Monocytes # (Auto) 1.03 K/uL (0.11-0.59) Eosinophils # (Auto) 0.09 K/uL (0-0.5) Basophils # (Auto) 0.02 K/uL (0-0.2) RDW Standard Deviation 44.5 fL (36.4-46.3) RDW Coefficient of Variation 14.0 % (11.5-14.5) Immature Granulocyte % (Auto) 0.4 % Immature Granulocyte # (Auto) 0.04 K/uL (0.00-0.02) Anion Gap 13.0 mmol/L (3-11) Est Creatinine Clear Calc Drug Dose 175.3 ml/min Estimated GFR () 110.6 Estimated GFR (Non- 95.4 BUN/Creatinine Ratio 20.1 (10-20) Calcium Level 8.8 mg/dl (8.5-10.1) Bedside Glucose 210 mg/dl (70-99) Assessment and Plan 61 year old male with Hx CABG, CHF presents with pulmonary edema on CXR, shortness of breath, increasing leg swelling and 25lb increase in weight Acute on chronic congestive heart failure with preserved ejection fraction - appreciate cardiology recommendations, cor pulmonale with right heart failure - ECHO in the past (may 2016) has not confirmed this diagnosis, however, he is morbidly obese making the studies extremely technically difficult. - Suspect BNP is falsely negative due to high BMI - Lasix reduced to home dose 80mg PO BID - Daily weights + I&Os. Keep in manrique cath for accurate measurement while reducing lasix due to inaccuracies previously without. - Trend BMP - Repeat CXR shows stable pulmonary vasculature Hypokalemia/hypomagnesemia - Continue lisinopril given admission for heart failure. - Replace as necessary; currently KCl 80 meq BID, (home dose 60meq BID) Hyponatremia - Decreasing despite diuresis therefore will reduce lasix to 80mg PO(from IV) daily - BMP daily - serum osm, urine osm and urine Na to further investigate cause in the morning. RLE cellulitis, recurrent - ID consult appreciate recommendations - Day 3 Teflaro (also had 2 days daptomycin with 1 day overlap) - Wound culture - coag negative staph, no sensitivity to follow - Blood cultures no growth to date - US Doppler in Aug negative for DVT and chronically on Xarelto making this less likely despite unilateral swelling T2DM - he is concerned with low amounts of insulin coverage for his meals. Total insulin daily 364 units at home. - Continue lantus 80 units Q12H. - Novolog (need for tighter control with 6 correction and 1.25:1 carb coverage) Non acute medical issues AFib- continue Xarelto, Diltiazem and metoprolol ALLIE - s/p Trach, uses special oxygenation system at night- discussed with Respiratory CAD- Aspirin, Lipitor, BB, ACEi, imdur XR HTN- Continue lisinopril, metoprolol (monitor for hypotension as lasix increased ), imdur COPD compensated - continue Pulmicort and duoneb Code - Full VTE Prophylaxis - not for SCDs and TEDs given skin integrity - Xarelto 20 mg daily PO Disposition - Transfer to med/surg History Resident Physician Supervision Note: I was present with Dr. Verma during the history and exam. I discussed the case with the resident and agree with the findings and plan as documented in the note. Any exceptions or clarifications are listed here. Pt seen and examined at bedside. Overnight had episode of atrial fibrillation which spontaneously cardioverted. At time of examination, he feels like his swelling and right lower extremity pain has improved somewhat, and his breathing is closer to baseline. He reports no fever, lightheadedness, CP, palpitations, nausea. General Appearance: mild distress, obese Respiratory: chest non-tender, no respiratory distress, decreased breath sounds Cardiovascular: normal peripheral pulses, regular rate, rhythm, no murmur, other (1+ pitting edema of the b/l LE worse on the RLE) Skin Characteristics: other (improved localized erythema of the RLE at the site of infection and drainage) Assessment/Plan 61 y/o male h/o CHF, CAD s/p CABG, DMII, Afib presents w/ worsening SOB and edema Shortness of breath - Cardiology on board and input appreciated - transition diuresis to PO as majority fluid removal completed. Continue daily wt/I/O. Continue meoprolol, lisinopril Hyponatremia - still stable/downtrending - repeat in PM Hypokalemia - continue PO repletion, monitor for diarrhea RLE cellulitis - f/u BCx. ID consulted & recommendations appreciated. Continue teflaro (day 3) Atrial fibrillation - continue xarelto, diltiazem, toprol ALLIE - continue qHS system in place for mgmt CAD s/p CABG - B roberta, ASA, lipitor HTN - continue toprol, lisinopril, diltiazem COPD - pulmicort, duonebs Transfer to med/surg
[2016-11-01] MEDS: RIVAROXABAN 10 MG TAB PO SCH (18:03)
[2016-11-01] MEDS: LATANOPROST 0.005% OP SOLN 2.5 ML BTL OPB SCH (22:09)
[2016-11-02] VITALS (12 sets, daily range): BP systolic 97–147; BP diastolic 59–73; PULSE 67–118; TEMP 36.4–36.9; O2SAT 96–100
[2016-11-02] MEDS: ALBUT/IPRATROP 3MG/0.5MG NEB 3 ML VIAL INH SCH ×6 (03:52→23:39)
[2016-11-02] MEDS: LORAZEPAM 1 MG TAB PO PRN ×2 (05:56→21:35)
[2016-11-02] MEDS: OXYCODONE/ACETAMINOPHEN 10/325MG TAB PO PRN ×2 (05:59→21:36)
[2016-11-02] MEDS: BUDESONIDE 0.5 MG/2 ML VIAL (PULMICORT) INH SCH ×2 (07:14→19:04)
[2016-11-02 07:23] LABS: HEMATOCRIT 36.5 % (42-52); MEAN CELL VOLUME 87.1 fL (80-100); MEAN CORPUSCULAR HEMOGLOBIN 30.8 pg (25-34); MEAN CORPUSCULAR HGB CONC 35.3 g/dl (32-36); MEAN PLATELET VOLUME 10.9 fL (7.4-10.4); PLATELET COUNT 140 K/uL (130-400); RED BLOOD COUNT 4.19 M/uL (4.7-6.1); WHITE BLOOD COUNT 8.76 K/uL (4.8-10.8)
[2016-11-02] MEDS: FUROSEMIDE 80 MG TAB PO SCH ×2 (07:34→17:55)
[2016-11-02] MEDS: LISINOPRIL 10 MG TAB PO SCH (07:34)
[2016-11-02] MEDS: ATORVASTATIN 40 MG TAB PO SCH (07:35)
[2016-11-02] MEDS: DILTIAZEM HCL 30 MG TAB PO SCH ×4 (07:35→21:20)
[2016-11-02] MEDS: ISOSORBIDE MONONITRATE 30 MG TABCR PO SCH (07:35)
[2016-11-02] MEDS: METOPROLOL TARTRATE 25 MG TAB PO SCH ×2 (07:35→21:20)
[2016-11-02] MEDS: CEROVITE ADV FORMULA TAB PO SCH (07:35)
[2016-11-02] MEDS: SPIRONOLACTONE 25 MG TAB PO SCH ×2 (07:35→17:53)
[2016-11-02] MEDS: ASPIRIN 81 MG ECTAB PO SCH (07:35)
[2016-11-02] MEDS: MAGNESIUM OXIDE 400 MG TAB PO SCH ×2 (07:36→21:18)
[2016-11-02] MEDS: POTASSIUM CHLORIDE 20 MEQ TABCR PO SCH ×2 (07:36→21:19)
[2016-11-02] MEDS: DORZOLAMIDE HCL 2% OPH SOLN 10 ML BTL OP SCH ×2 (07:37→21:20)
[2016-11-02] MEDS: AMMONIUM LACTATE 12% LOTION 225 GM BTL EXT SCH (07:37)
[2016-11-02] MEDS: INSULIN GLARGINE SC SCH ×2 (07:46→21:15)
[2016-11-02 07:48] LABS: BUN/CREATININE RATIO 23.6 (10-20); CALCIUM 8.5 mg/dl (8.5-10.1); CREATININE 0.77 mg/dl (0.60-1.40); MAGNESIUM 1.8 mg/dl (1.8-2.4); POTASSIUM 3.4 mmol/L (3.5-5.1)
[2016-11-02] MEDS: CEFTAROLINE FOSAMIL INJ 600 MG in SODIUM CHLORIDE 0.9% 250ML 250 ML IV SCH ×2 (09:09→21:15)
[2016-11-02] MEDS: INSULIN ASPART 100 UNITS/ML 3 ML PEN SC SCH (09:14)
--- NOTE | 2016-11-02 11:18 | Progress Note ---
Progress Note Date of Service: Nov 02, 2016. Subjective: 61-year-old male admitted with congestive heart failure and lower external cellulitis. Upon examination today, he is initially sleeping but awakes to voice. He feels that his hands are slightly more swollen today compared to yesterday, but the lower extremities seem to be less swollen. Review of Systems Problem List Medical Problems: (1) Atrial fibrillation with rapid ventricular response Status: Acute (2) Back pain Status: Acute (3) Cellulitis Status: Acute (4) Congestive heart failure Status: Acute (5) Dyspnea Status: Acute (6) Failure of outpatient treatment Status: Acute (7) Hyperglycemia Status: Acute (8) Morbid obesity Status: Chronic (9) Pneumonia Status: Acute (10) Pneumonia Status: Acute (11) Pneumonia Status: Acute (12) Tracheitis Status: Acute (13) Weight gain Status: Acute General Appearance: no apparent distress Constitutional: denies: fever EENTM: acknowledges: no symptoms reported Respiratory: positive: no symptoms reported (tracheostomy) Cardiovascular: reports edema, denies chest pain, denies palpitations Gastrointestinal/Abdominal: negative: abdominal pain Skin: positive: dryness, negative: change in color Neurological/Psych: negative: anxiety All Other Systems: Reviewed and Negative Vital Signs Past 8 Hours: Last 8 Hrs Date Time Temp Pulse Resp B/P Pulse Ox O2 Delivery O2 Flow Rate FiO2 11/02/16 08:00 Trach Collar 11/02/16 07:58 36.4 75 20 147/67 100 Trach Collar 11/02/16 07:14 88 18 96 Room Air 11/02/16 03:53 76 18 99 Trach Collar 28 Physical Exam General Appearance: WD/WN, no apparent distress Ears, Nose, Throat: hearing grossly normal, other (tracheostomy) Neck: non-tender, full range of motion, supple, normal inspection, trachea midline (tracheostomy) Respiratory: chest non-tender, lungs clear (difficult to auscultate due to body habitus, seemingly clear) Cardiovascular: normal peripheral pulses, regular rate, rhythm (distal heart sounds) Gastrointestinal: normal bowel sounds, non tender, soft (morbidly obese) Extremities: other (lower extremity erythema, right greater than left.) Neurologic/Psychiatric: no motor/sensory deficits, alert, normal mood/affect, oriented x 3 Medications Medications: Acetaminophen (Tylenol Tab) 650 mg Q4H PRN PO Last administered on 10/29/16 17:04; Admin Dose 650 MG; Start 10/29/16 at 00:00; Stop 11/28/16 at 00:00 Albuterol/ Ipratropium (Duoneb) 3 ml Q4R INH Last administered on 11/02/16 07:14 ; Admin Dose 3 ML; Start 10/29/16 at 00:00; Stop 11/28/16 at 00:00 Ammonium Lactate (Lac-Hydrin) 1 appl DAILY EXT Last administered on 11/02/16 07: 37; Admin Dose 1 APPL; Start 11/01/16 at 09:00; Stop 12/01/16 at 08:59 Aspirin (Ecotrin Tab) 81 mg DAILY PO Last administered on 11/02/16 07:35; Admin Dose 81 MG; Start 10/29/16 at 09:00; Stop 11/28/16 at 08:59 Atorvastatin Calcium (Lipitor Tab) 80 mg DAILY PO Last administered on 11/02/16 07:35; Admin Dose 80 MG; Start 10/29/16 at 09:00; Stop 11/28/16 at 08:59 Budesonide (Pulmicort Respules 0.5MG/ 2ML Neb Soln) 1 mg BIDR INH Last administered on 11/02/16 07:14; Admin Dose 1 MG; Start 10/29/16 at 08:00; Stop 11/28/16 at 07:59 Ceftaroline Fosamil/Sodium Chloride (Teflaro Inj/Nss 250ml) 270 ml @ 250 mls/ hr Q12@0900,2100 IV Last administered on 11/02/16 09:09; Admin Dose 250 MLS/HR; Start 10/30/16 at 10:30; Stop 11/09/16 at 10:29 Diltiazem HCl (Cardizem Tab) 30 mg QID PO Last administered on 11/02/16 07:35; Admin Dose 30 MG; Start 10/29/16 at 09:00; Stop 11/28/16 at 08:59 Dorzolamide HCl (Trusopt 2% Oph Soln) 1 drops BID OP Last administered on 07:37; Admin Dose 1 DROPS; Start 10/29/16 at 09:00; Stop 11/28/16 at 08:59 Furosemide (Lasix Tab) 80 mg BIDM PO Last administered on 11/02/16 07:34; Admin Dose 80 MG; Start 11/01/16 at 07:30; Stop 12/01/16 at 07:29 Insulin Aspart (novoLOG ASPART) SLIDING SCALE G... ACHS SC Last administered on 11/02/16 09:14; Admin Dose 36 UNITS; Start 10/29/16 at 07:00; Stop 11/28/16 at 06:59 Insulin Glargine (Lantus Vial) 80 unit BID SC Last administered on 11/02/16 07: 46; Admin Dose 80 UNIT; Start 10/30/16 at 21:00; Stop 11/29/16 at 20:59 Isosorbide Mononitrate (Imdur Ext Rel Tab) 30 mg DAILY PO Last administered on 07:35; Admin Dose 30 MG; Start 10/29/16 at 09:00; Stop 11/28/16 at 08:59 Latanoprost (Xalatan Oph Soln) 1 drops HS OPB Last administered on 11/01/16 22: 09; Admin Dose 1 DROPS; Start 10/29/16 at 21:00; Stop 11/28/16 at 20:59 Lisinopril (Zestril Tab) 10 mg DAILY PO Last administered on 11/02/16 07:34; Admin Dose 10 MG; Start 10/29/16 at 09:00; Stop 11/28/16 at 08:59; Status Future hold Lorazepam (Ativan Tab) 1 mg QID PRN PO Last administered on 11/02/16 05:56; Admin Dose 1 MG; Start 10/29/16 at 00:00; Stop 11/28/16 at 00:00 Magnesium Oxide 800 mg 800 mg BID PO Last administered on 11/02/16 07:36; Admin Dose 800 MG; Start 10/29/16 at 21:00; Stop 11/28/16 at 20:59 Metoprolol Tartrate (Lopressor Tab) 25 mg BID PO Last administered on 11/02/16 07:35; Admin Dose 25 MG; Start 10/29/16 at 09:00; Stop 11/28/16 at 08:59 Miconazole Nitrate (Desenex Powder) 1 appln PRN PRN EXT Last administered on 11:03; Admin Dose 1 APPLN; Start 10/30/16 at 10:15; Stop 11/29/16 at 10: 14 Multivitamins/ Minerals (Multivitamin W/ Minerals Tab) 1 tab DAILY PO Last administered on 11/02/16 07:35; Admin Dose 1 TAB; Start 10/29/16 at 09:00; Stop 11/28/16 at 08:59 Oxycodone/ Acetaminophen (Percocet 10-325MG Tab) 1 tab Q8 PRN PO Last administered on 11/02/16 05:59; Admin Dose 1 TAB; Start 10/29/16 at 00:00; Stop 11/12/16 at 00:00 Potassium Chloride (Klor-Con Tab) 80 meq BID PO Last administered on 11/02/16 07 :36; Admin Dose 80 MEQ; Start 10/31/16 at 21:00; Stop 11/30/16 at 20:59 Rivaroxaban (Xarelto Tab) 20 mg QDD PO Last administered on 11/01/16 18:03; Admin Dose 20 MG; Start 10/29/16 at 16:45; Stop 11/28/16 at 16:44 Spironolactone (Aldactone Tab) 25 mg BID17 PO Last administered on 11/02/16 07: 35; Admin Dose 25 MG; Start 10/29/16 at 09:00; Stop 11/28/16 at 08:59 Laboratory Data Laboratory Data: Results Past 24 Hours Test 11/01/16 11:09 11/01/16 16:12 11/01/16 18:07 11/01/16 20:10 Range/Units Bedside Glucose 210 177 178 70-99 mg/dl Osmolality 271 280-300 mOsm/kg Test 11/02/16 06:00 11/02/16 06:45 11/02/16 07:46 Range/Units Urine Osmolality 482 500-800 mOms/kg Urine Random Sodium 27 mEq/L White Blood Count 8.76 4.8-10.8 K/uL Red Blood Count 4.19 4.7-6.1 M/uL Hemoglobin 12.9 14.0-18.0 g/dL Hematocrit 36.5 42-52 % Mean Corpuscular Volume 87.1 80-100 fL Mean Corpuscular Hemoglobin 30.8 25-34 pg Mean Corpuscular Hemoglobin Concent 35.3 32-36 g/dl RDW Standard Deviation 44.5 36.4-46.3 fL RDW Coefficient of Variation 14.0 11.5-14.5 % Platelet Count 140 130-400 K/uL Mean Platelet Volume 10.9 7.4-10.4 fL Sodium Level 127 136-145 mmol/L Potassium Level 3.4 3.5-5.1 mmol/L Chloride Level 87 98-107 mmol/L Carbon Dioxide Level 31 21-32 mmol/L Anion Gap 9.0 3-11 mmol/L Blood Urea Nitrogen 18 7-18 mg/dl Creatinine 0.77 0.60-1.40 mg/dl Est Creatinine Clear Calc Drug Dose 186.7 ml/min Estimated GFR () 113.5 Estimated GFR (Non- 97.9 BUN/Creatinine Ratio 23.6 10-20 Random Glucose 93 70-99 mg/dl Calcium Level 8.5 8.5-10.1 mg/dl Magnesium Level 1.8 1.8-2.4 mg/dl Bedside Glucose 106 70-99 mg/dl Assessment and Plan 61 -year-old male with noted history of coronary artery disease status post CABG , morbid obesity, congestive heart failure who presented to the emergency department with acute pulmonary edema, shortness of breath, 25 pound weight gain , and bilateral lower extremity cellulitis. Acute on chronic congestive heart failure with preserved ejection fraction Cardiology input appreciated, cor pulmonale with right heart failure. Appreciate cardiology recommendations, cor pulmonale with right heart failure Lasix reduced to his home dose of 80 mg twice a day. We'll continue strict I's and os and daily weights. Hypokalemia/hypomagnesemia Continue lisinopril given admission for heart failure. Replace as necessary; currently KCl 80 meq BID, (home dose 60meq BID) Hyponatremia Slight improvement today. No changes to diuretic therapy above. BMP daily Check urine sodium RLE cellulitis, recurrent Subtle improvement it seems, appreciate infectious disease consult recommendations. Day 3 Teflaro (also had 2 days daptomycin with 1 day overlap) T2DM He again expressed concern with low amounts of insulin coverage for his meals. Historically he states that he usually needs more than he would suspect (more than protocol) to achieve desired glucose levels. Continue lantus 80 units Q12H. Novolog (need for tighter control with 6 correction and 1.25:1 carb coverage) Non acute medical issues AFib- continue Xarelto, Diltiazem and metoprolol ALLIE - s/p Trach, uses special oxygenation system at night- discussed with Respiratory CAD- Aspirin, Lipitor, BB, ACEi, imdur XR HTN- Continue lisinopril, metoprolol (monitor for hypotension as lasix increased ), imdur COPD compensated - continue Pulmicort and duoneb Code Full VTE Prophylaxis not for SCDs and TEDs given skin integrity Xarelto 20 mg daily PO
[2016-11-02] MEDS: INSULIN ASPART 100 UNITS/ML VIAL SC SCH ×2 (17:52→21:12)
[2016-11-02] MEDS: RIVAROXABAN 10 MG TAB PO SCH (17:54)
[2016-11-02] MEDS: LATANOPROST 0.005% OP SOLN 2.5 ML BTL OPB SCH (21:16)
[2016-11-03] VITALS (11 sets, daily range): BP systolic 111–124; BP diastolic 68–76; PULSE 51–110; TEMP 36.8–37; O2SAT 96–99
[2016-11-03] MEDS: ALBUT/IPRATROP 3MG/0.5MG NEB 3 ML VIAL INH SCH ×6 (03:45→23:02)
[2016-11-03] MEDS: BUDESONIDE 0.5 MG/2 ML VIAL (PULMICORT) INH SCH ×2 (07:10→19:03)
[2016-11-03 07:25] LABS: BUN/CREATININE RATIO 22.2 (10-20); CALCIUM 8.4 mg/dl (8.5-10.1); CREATININE 0.78 mg/dl (0.60-1.40); MAGNESIUM 1.9 mg/dl (1.8-2.4); POTASSIUM 3.7 mmol/L (3.5-5.1)
[2016-11-03] MEDS: AMMONIUM LACTATE 12% LOTION 225 GM BTL EXT SCH (07:59)
[2016-11-03] MEDS: ISOSORBIDE MONONITRATE 30 MG TABCR PO SCH (08:00)
[2016-11-03] MEDS: DORZOLAMIDE HCL 2% OPH SOLN 10 ML BTL OP SCH ×2 (08:02→20:24)
[2016-11-03] MEDS: CEROVITE ADV FORMULA TAB PO SCH (08:04)
[2016-11-03] MEDS: LISINOPRIL 10 MG TAB PO SCH (08:05)
[2016-11-03] MEDS: MAGNESIUM OXIDE 400 MG TAB PO SCH ×2 (08:06→20:26)
[2016-11-03] MEDS: DILTIAZEM HCL 30 MG TAB PO SCH ×4 (08:06→20:25)
[2016-11-03] MEDS: ATORVASTATIN 40 MG TAB PO SCH (08:06)
[2016-11-03] MEDS: ASPIRIN 81 MG ECTAB PO SCH (08:07)
[2016-11-03] MEDS: METOPROLOL TARTRATE 25 MG TAB PO SCH ×2 (08:07→20:26)
[2016-11-03] MEDS: FUROSEMIDE 80 MG TAB PO SCH ×2 (08:07→17:34)
[2016-11-03] MEDS: POTASSIUM CHLORIDE 20 MEQ TABCR PO SCH ×2 (08:11→20:24)
[2016-11-03] MEDS: SPIRONOLACTONE 25 MG TAB PO SCH ×2 (08:12→17:34)
[2016-11-03] MEDS: LORAZEPAM 1 MG TAB PO PRN ×2 (08:20→23:47)
[2016-11-03] MEDS: INSULIN ASPART 100 UNITS/ML VIAL SC SCH ×4 (08:24→20:33)
[2016-11-03] MEDS: INSULIN GLARGINE SC SCH ×2 (08:24→20:29)
[2016-11-03] MEDS: CEFTAROLINE FOSAMIL INJ 600 MG in SODIUM CHLORIDE 0.9% 250ML 250 ML IV SCH ×2 (08:26→20:41)
--- NOTE | 2016-11-03 11:59 | Progress Note ---
Progress Note Date of Service: Nov 03, 2016. Subjective: 61-year-old male admitted with congestive heart failure and right lower extremity cellulitis. No significant changes overnight. The right lower extremity remains red/purplish and edematous; the patient usually sleeps with the right lower extremity dangling off the bed. When he is seated in his bed, he usually has his left leg flexed and his right leg straight on the bed and as a result of this position it is seemingly compressed by his obese pannus. I wonder if this contributes in part to his right lower extremity edema. I discussed this with the patient and he states that is uncomfortable to lie on his left side due to other orthopedic complaints. Review of Systems Problem List Medical Problems: (1) Atrial fibrillation with rapid ventricular response Status: Acute (2) Back pain Status: Acute (3) Cellulitis Status: Acute (4) Congestive heart failure Status: Acute (5) Dyspnea Status: Acute (6) Failure of outpatient treatment Status: Acute (7) Hyperglycemia Status: Acute (8) Morbid obesity Status: Chronic (9) Pneumonia Status: Acute (10) Pneumonia Status: Acute (11) Pneumonia Status: Acute (12) Tracheitis Status: Acute (13) Weight gain Status: Acute General Appearance: no apparent distress Constitutional: denies: fever EENTM: acknowledges: no symptoms reported Respiratory: negative: cough, short of breath Cardiovascular: denies chest pain Gastrointestinal/Abdominal: positive: no symptoms reported Genitourinary: positive no symptoms reported Musculoskeletal: positive: no symptoms reported Neurological/Psych: positive: no symptoms reported Hematologic/Lymphatic: positive: no symptoms reported Vital Signs Past 8 Hours: Last 8 Hrs Date Time Temp Pulse Resp B/P Pulse Ox O2 Delivery O2 Flow Rate FiO2 11/03/16 08:00 96 Room Air 11/03/16 07:19 36.8 90 20 124/68 96 Room Air 11/03/16 07:10 87 18 99 Room Air 11/03/16 03:45 70 20 99 Trach Collar 28 Physical Exam General Appearance: WD/WN, no apparent distress Eye Exam: bilateral eye PERRL, bilateral eye normal inspection Ears, Nose, Throat: hearing grossly normal Neck: non-tender, full range of motion, supple, normal inspection, trachea midline (tracheostomy in place) Respiratory: chest non-tender, lungs clear, normal breath sounds Cardiovascular: normal peripheral pulses, irregularly irregular Gastrointestinal: non tender, no organomegaly Extremities: other (right lower extremity remains with erythema, although it does not extend as superior as it did on my examination yesterday. The right foot itself on the anterior surface remains swollen, per the patient more so than last night although this seems to vary due to his position.) Neurologic/Psychiatric: no motor/sensory deficits, alert, normal mood/affect, oriented x 3 Medications Medications: Current Inpatient Medications Medications (Trade) Dose Ordered Sig/Saige Route Start Time Stop Time Status Last Admin Dose Admin Acetaminophen (Tylenol Tab) 650 mg Q4H PRN PO 10/29/16 00:00 11/28/16 00:00 10/29/16 17:04 650 MG Al Hydrox/Mg Hydrox/Simethicone (Maalox Max Susp) 15 ml Q4H PRN PO 10/29/16 00:00 11/28/16 00:00 Magnesium Hydroxide (Milk Of Magnesia Susp) 30 ml Q6H PRN PO 10/29/16 00:00 11/28/16 00:00 Polyethylene (Miralax Powder Packet) 17 gm DAILY PRN PO 10/29/16 00:00 11/28/16 00:00 Ondansetron HCl (Zofran Inj) 4 mg Q6H PRN IV 10/29/16 00:00 11/28/16 00:00 Nitroglycerin (Nitrostat Tab) 0.4 mg UD PRN SL 10/29/16 00:00 11/28/16 00:00 Albuterol (Ventolin Hfa Inhaler) 1 puffs QID PRN INH 10/29/16 00:00 11/28/16 00:00 Aspirin (Ecotrin Tab) 81 mg DAILY PO 10/29/16 09:00 11/28/16 08:59 11/03/16 08:07 81 MG Atorvastatin Calcium (Lipitor Tab) 80 mg DAILY PO 10/29/16 09:00 11/28/16 08:59 11/03/16 08:06 80 MG Budesonide (Pulmicort Respules 0.5MG/ 2ML Neb Soln) 1 mg BIDR INH 10/29/16 08:00 11/28/16 07:59 11/03/16 07:10 1 MG Diltiazem HCl (Cardizem Tab) 30 mg QID PO 10/29/16 09:00 11/28/16 08:59 11/03/16 08:06 30 MG Dorzolamide HCl (Trusopt 2% Oph Soln) 1 drops BID OP 10/29/16 09:00 11/28/16 08:59 11/03/16 08:02 1 DROPS Albuterol/ Ipratropium (Duoneb) 3 ml Q4R INH 10/29/16 00:00 11/28/16 00:00 11/03/16 07:10 3 ML Isosorbide Mononitrate (Imdur Ext Rel Tab) 30 mg DAILY PO 10/29/16 09:00 11/28/16 08:59 11/03/16 08:00 30 MG Latanoprost (Xalatan Oph Soln) 1 drops HS OPB 10/29/16 21:00 11/28/16 20:59 11/02/16 21:16 1 DROPS Lisinopril (Zestril Tab) 10 mg DAILY PO 10/29/16 09:00 11/28/16 08:59 Future hold 11/03/16 08:05 10 MG Lorazepam (Ativan Tab) 1 mg QID PRN PO 10/29/16 00:00 11/28/16 00:00 11/03/16 08:20 1 MG Metoprolol Tartrate (Lopressor Tab) 25 mg BID PO 10/29/16 09:00 11/28/16 08:59 11/03/16 08:07 25 MG Multivitamins/ Minerals (Multivitamin W/ Minerals Tab) 1 tab DAILY PO 10/29/16 09:00 11/28/16 08:59 11/03/16 08:04 1 TAB Oxycodone/ Acetaminophen (Percocet 10-325MG Tab) 1 tab Q8 PRN PO 10/29/16 00:00 11/12/16 00:00 11/02/16 21:36 1 TAB Rivaroxaban (Xarelto Tab) 20 mg QDD PO 10/29/16 16:45 11/28/16 16:44 11/02/16 17:54 20 MG Spironolactone (Aldactone Tab) 25 mg BID17 PO 10/29/16 09:00 11/28/16 08:59 11/03/16 08:12 25 MG Glucose (Glucose 40% Gel) 15-30 GRAMS 15 GRAMS... UD PRN PO 10/29/16 02:45 11/28/16 02:44 Glucose (Glucose Chew Tab) 4-8 Tablets 4 Tabl... UD PRN PO 10/29/16 02:45 11/28/16 02:44 Dextrose (Dextrose 50% 50ML Syringe) 25-50ML OF 50% DW IV FOR... UD PRN IV 10/29/16 02:45 11/28/16 02:44 Glucagon (Glucagon Inj) 1 mg UD PRN SQ 10/29/16 02:45 11/28/16 02:44 Magnesium Oxide 800 mg 800 mg BID PO 10/29/16 21:00 11/28/16 20:59 11/03/16 08:06 800 MG Ceftaroline Fosamil/Sodium Chloride (Teflaro Inj/Nss 250ml) 270 ml @ 250 mls/hr Q12@0900,2100 IV 10/30/16 10:30 11/09/16 10:29 11/03/16 08:26 250 MLS/HR Miconazole Nitrate (Desenex Powder) 1 appln PRN PRN EXT 10/30/16 10:15 11/29/16 10:14 10/30/16 11:03 1 APPLN Insulin Glargine (Lantus Vial) 80 unit BID SC 10/30/16 21:00 11/29/16 20:59 11/03/16 08:24 80 UNIT Ammonium Lactate (Lac-Hydrin) 1 appl DAILY EXT 11/01/16 09:00 12/01/16 08:59 11/03/16 07:59 1 APPL Potassium Chloride (Klor-Con Tab) 80 meq BID PO 10/31/16 21:00 11/30/16 20:59 11/03/16 08:11 80 MEQ Furosemide (Lasix Tab) 80 mg BIDM PO 11/01/16 07:30 12/01/16 07:29 11/03/16 08:07 80 MG Insulin Aspart (novoLOG ASPART) SLIDING SCALE G... ACHS SC 11/02/16 16:30 12/02/16 16:29 11/03/16 08:24 54 UNITS Laboratory Data Laboratory Data: Last 24 Hours Test 11/02/16 13:10 11/02/16 17:30 11/02/16 20:08 11/03/16 05:42 Urine Random Sodium 21 mEq/L Bedside Glucose 98 mg/dl 200 mg/dl Sodium Level 128 mmol/L Potassium Level 3.7 mmol/L Chloride Level 90 mmol/L Carbon Dioxide Level 30 mmol/L Anion Gap 8.0 mmol/L Blood Urea Nitrogen 17 mg/dl Creatinine 0.78 mg/dl Est Creatinine Clear Calc Drug Dose 184.3 ml/min Estimated GFR () 112.9 Estimated GFR (Non- 97.4 BUN/Creatinine Ratio 22.2 Random Glucose 119 mg/dl Calcium Level 8.4 mg/dl Magnesium Level 1.9 mg/dl Test 11/03/16 07:26 Bedside Glucose 136 mg/dl Assessment and Plan 61 -year-old male with noted history of coronary artery disease status post CABG , morbid obesity, congestive heart failure who presented to the emergency department with acute pulmonary edema, shortness of breath, 25 pound weight gain , and bilateral lower extremity cellulitis. Acute on chronic congestive heart failure with preserved ejection fraction Cardiology input appreciated, cor pulmonale with right heart failure. Appreciate cardiology recommendations, cor pulmonale with right heart failure Lasix reduced to his home dose of 80 mg twice a day. We'll continue strict I's and os and daily weights. RLE cellulitis, recurrent Subtle improvement it seems, appreciate infectious disease consult recommendations. Continue intravenous antibiotics Very decrease of edema which seems to be related to body positioning. Hypokalemia/hypomagnesemia Careful attention to potassium given his supplementation and addition of BRUNO inhibitor. Hyponatremia Chronically hyponatremic; slightly improved today Daily BMP T2DM Continue lantus 80 units Q12H. Novolog (need for tighter control with 6 correction and 1.25:1 carb coverage) Non acute medical issues AFib- continue Xarelto, Diltiazem and metoprolol ALLIE - s/p Trach, uses special oxygenation system at night- discussed with Respiratory CAD- Aspirin, Lipitor, BB, ACEi, imdur XR HTN- Continue lisinopril, metoprolol (monitor for hypotension as lasix increased ), imdur COPD compensated - continue Pulmicort and duoneb Code Full VTE Prophylaxis not for SCDs and TEDs given skin integrity Xarelto 20 mg daily PO
[2016-11-03] MEDS: OXYCODONE/ACETAMINOPHEN 10/325MG TAB PO PRN ×2 (15:52→23:48)
[2016-11-03] MEDS: RIVAROXABAN 10 MG TAB PO SCH (17:34)
[2016-11-03] MEDS: LATANOPROST 0.005% OP SOLN 2.5 ML BTL OPB SCH (20:34)
[2016-11-04] VITALS (11 sets, daily range): BP systolic 105–151; BP diastolic 49–74; PULSE 64–91; TEMP 36.4–36.8; O2SAT 95–99
[2016-11-04] MEDS: ALBUT/IPRATROP 3MG/0.5MG NEB 3 ML VIAL INH SCH ×6 (03:51→23:29)
[2016-11-04 06:28] LABS: HEMATOCRIT 33.9 % (42-52); MEAN CELL VOLUME 86.9 fL (80-100); MEAN CORPUSCULAR HEMOGLOBIN 31.3 pg (25-34); MEAN PLATELET VOLUME 10.3 fL (7.4-10.4); PLATELET COUNT 142 K/uL (130-400); WHITE BLOOD COUNT 8.58 K/uL (4.8-10.8)
[2016-11-04 07:03] LABS: BUN/CREATININE RATIO 17.8 (10-20); CALCIUM 8.6 mg/dl (8.5-10.1); CREATININE 0.74 mg/dl (0.60-1.40); MAGNESIUM 2.2 mg/dl (1.8-2.4); POTASSIUM 4.1 mmol/L (3.5-5.1)
[2016-11-04] MEDS: BUDESONIDE 0.5 MG/2 ML VIAL (PULMICORT) INH SCH ×2 (07:27→19:50)
[2016-11-04] MEDS: LORAZEPAM 1 MG TAB PO PRN ×2 (08:55→16:21)
[2016-11-04] MEDS: METOPROLOL TARTRATE 25 MG TAB PO SCH ×2 (08:56→19:37)
[2016-11-04] MEDS: MAGNESIUM OXIDE 400 MG TAB PO SCH ×2 (08:56→19:38)
[2016-11-04] MEDS: ATORVASTATIN 40 MG TAB PO SCH (08:57)
[2016-11-04] MEDS: CEROVITE ADV FORMULA TAB PO SCH (08:57)
[2016-11-04] MEDS: AMMONIUM LACTATE 12% LOTION 225 GM BTL EXT SCH (08:58)
[2016-11-04] MEDS: POTASSIUM CHLORIDE 20 MEQ TABCR PO SCH ×2 (08:59→19:38)
[2016-11-04] MEDS: ASPIRIN 81 MG ECTAB PO SCH (08:59)
[2016-11-04] MEDS: FUROSEMIDE 80 MG TAB PO SCH ×2 (09:00→16:23)
[2016-11-04] MEDS: ISOSORBIDE MONONITRATE 30 MG TABCR PO SCH (09:00)
[2016-11-04] MEDS: DILTIAZEM HCL 30 MG TAB PO SCH ×4 (09:00→19:37)
[2016-11-04] MEDS: SPIRONOLACTONE 25 MG TAB PO SCH ×2 (09:01→16:23)
[2016-11-04] MEDS: LISINOPRIL 10 MG TAB PO SCH (09:01)
[2016-11-04] MEDS: DORZOLAMIDE HCL 2% OPH SOLN 10 ML BTL OP SCH ×2 (09:02→19:37)
[2016-11-04] MEDS: CEFTAROLINE FOSAMIL INJ 600 MG in SODIUM CHLORIDE 0.9% 250ML 250 ML IV SCH ×2 (09:02→21:31)
[2016-11-04] MEDS: INSULIN GLARGINE SC SCH ×2 (09:36→21:35)
[2016-11-04] MEDS: INSULIN ASPART 100 UNITS/ML VIAL SC SCH ×4 (09:39→21:36)
--- NOTE | 2016-11-04 10:52 | CARDIOLOGY PROGRESS NOTE ---
DATE: 11/04/2016 SUBJECTIVE: This morning, Mr. Tim claims to be feeling about the same. He states that since admission, he has had some mild improvement in his breathing; however, still notably dyspnea when getting back and forth to the bathroom. He continues to have swelling in his right lower extremity. He is aware of his diuresis. PHYSICAL EXAMINATION: GENERAL: He was alert and oriented. His mood and affect appear normal. He answered all questions appropriately. VITAL SIGNS: Include blood pressure of 131/74 with a pulse of 75. LUNGS: Auscultation of his lungs revealed them to be clear. He had good air movement with some expiratory wheezing and some upper airway congestion. CARDIAC: Revealed distant heart sounds, but a regular rhythm and no murmurs. EXTREMITIES: Evaluation of his right lower extremity revealed some dusky consideration of the foot with notable edema and some trophic changes with erythema to the mid calf on the right, left foot had minimal edema. LABORATORY STUDIES: Obtained today included a sodium 130, potassium of 4.1, BUN was 13 and creatinine was 0.74. ASSESSMENT AND PLAN: 1. Congestive heart failure: The patient is believed to have preserved left ventricular systolic function, although echocardiographic evaluation is compromised by his body habitus. The patient continues to have a negative volume on daily basis with his current diuretic regimen. One problem is persistent hyponatremia, which will need to be monitored closely. The patient's metolazone was stopped, which seems reasonable in this setting, especially given his continued diuresis on furosemide alone. At this point, would simply recommend continued use of diuretics for peripheral edema, watching his electrolytes closely, as well as aggressive blood pressure control in the hopes of providing the best cardiac output possible. At this point, cardiology will sign off. Please reconsult for additional questions or problems which arise during this hospitalization. HOMERO
--- NOTE | 2016-11-04 14:03 | DIAGNOSTIC IMAGING REPORT ---
Venous Doppler right leg RIGHT VENOUS DOPP LOWER EXT UNILAT CLINICAL HISTORY: unilateral leg swelling Right pain. Edema. TECHNIQUE: Venous Doppler COMPARISON STUDY: 05/04/2016 normal study FINDINGS: Normal study IMPRESSION: Normal study Electronically signed by: Yan Escalera M.D. 11/04/2016 2:01 PM Dictated Date/Time: 11/04/2016 2:01 PM
--- NOTE | 2016-11-04 15:31 | Infectious Disease Progress Nt ---
Progress Note Date of Service Nov 04, 2016. Subjective Pt evaluation today including: conversation w/ patient, physical exam, chart review, lab review, review of studies, review of inpatient medication list WBC count 8.58. Creatinine was 0.74 this morning. Blood cultures showing no growth on final culture. Venous doppler of the RLE showed no DVT. Patient continues to be very fatigued. He feels his breathing has slightly improved but he continues to be short of breath. Notes less edema of the right lower extremity when he has it up in the bed. All Other Systems: Reviewed and Negative Medications Current Inpatient Medications Medications (Trade) Dose Ordered Sig/Saige Route Start Time Stop Time Status Last Admin Dose Admin Acetaminophen (Tylenol Tab) 650 mg Q4H PRN PO 10/29/16 00:00 11/28/16 00:00 10/29/16 17:04 650 MG Al Hydrox/Mg Hydrox/Simethicone (Maalox Max Susp) 15 ml Q4H PRN PO 10/29/16 00:00 11/28/16 00:00 Magnesium Hydroxide (Milk Of Magnesia Susp) 30 ml Q6H PRN PO 10/29/16 00:00 11/28/16 00:00 Polyethylene (Miralax Powder Packet) 17 gm DAILY PRN PO 10/29/16 00:00 11/28/16 00:00 Ondansetron HCl (Zofran Inj) 4 mg Q6H PRN IV 10/29/16 00:00 11/28/16 00:00 Nitroglycerin (Nitrostat Tab) 0.4 mg UD PRN SL 10/29/16 00:00 11/28/16 00:00 Albuterol (Ventolin Hfa Inhaler) 1 puffs QID PRN INH 10/29/16 00:00 11/28/16 00:00 Aspirin (Ecotrin Tab) 81 mg DAILY PO 10/29/16 09:00 11/28/16 08:59 11/04/16 08:59 81 MG Atorvastatin Calcium (Lipitor Tab) 80 mg DAILY PO 10/29/16 09:00 11/28/16 08:59 11/04/16 08:57 80 MG Budesonide (Pulmicort Respules 0.5MG/ 2ML Neb Soln) 1 mg BIDR INH 10/29/16 08:00 11/28/16 07:59 11/04/16 07:27 1 MG Diltiazem HCl (Cardizem Tab) 30 mg QID PO 10/29/16 09:00 11/28/16 08:59 11/04/16 12:12 30 MG Dorzolamide HCl (Trusopt 2% Oph Soln) 1 drops BID OP 10/29/16 09:00 11/28/16 08:59 11/04/16 09:02 1 DROPS Albuterol/ Ipratropium (Duoneb) 3 ml Q4R INH 10/29/16 00:00 11/28/16 00:00 11/04/16 11:57 3 ML Isosorbide Mononitrate (Imdur Ext Rel Tab) 30 mg DAILY PO 10/29/16 09:00 11/28/16 08:59 11/04/16 09:00 30 MG Latanoprost (Xalatan Oph Soln) 1 drops HS OPB 10/29/16 21:00 11/28/16 20:59 11/03/16 20:34 1 DROPS Lisinopril (Zestril Tab) 10 mg DAILY PO 10/29/16 09:00 11/28/16 08:59 Future hold 11/04/16 09:01 10 MG Lorazepam (Ativan Tab) 1 mg QID PRN PO 10/29/16 00:00 11/28/16 00:00 11/04/16 08:55 1 MG Metoprolol Tartrate (Lopressor Tab) 25 mg BID PO 10/29/16 09:00 11/28/16 08:59 11/04/16 08:56 25 MG Multivitamins/ Minerals (Multivitamin W/ Minerals Tab) 1 tab DAILY PO 10/29/16 09:00 11/28/16 08:59 11/04/16 08:57 1 TAB Oxycodone/ Acetaminophen (Percocet 10-325MG Tab) 1 tab Q8 PRN PO 10/29/16 00:00 11/12/16 00:00 11/03/16 23:48 1 TAB Rivaroxaban (Xarelto Tab) 20 mg QDD PO 10/29/16 16:45 11/28/16 16:44 11/03/16 17:34 20 MG Spironolactone (Aldactone Tab) 25 mg BID17 PO 10/29/16 09:00 11/28/16 08:59 11/04/16 09:01 25 MG Glucose (Glucose 40% Gel) 15-30 GRAMS 15 GRAMS... UD PRN PO 10/29/16 02:45 11/28/16 02:44 Glucose (Glucose Chew Tab) 4-8 Tablets 4 Tabl... UD PRN PO 10/29/16 02:45 11/28/16 02:44 Dextrose (Dextrose 50% 50ML Syringe) 25-50ML OF 50% DW IV FOR... UD PRN IV 10/29/16 02:45 11/28/16 02:44 Glucagon (Glucagon Inj) 1 mg UD PRN SQ 10/29/16 02:45 11/28/16 02:44 Magnesium Oxide 800 mg 800 mg BID PO 10/29/16 21:00 11/28/16 20:59 11/04/16 08:56 800 MG Ceftaroline Fosamil/Sodium Chloride (Teflaro Inj/Nss 250ml) 270 ml @ 250 mls/hr Q12@0900,2100 IV 10/30/16 10:30 11/09/16 10:29 11/04/16 09:02 250 MLS/HR Miconazole Nitrate (Desenex Powder) 1 appln PRN PRN EXT 10/30/16 10:15 11/29/16 10:14 10/30/16 11:03 1 APPLN Insulin Glargine (Lantus Vial) 80 unit BID SC 10/30/16 21:00 11/29/16 20:59 11/04/16 09:36 80 UNIT Ammonium Lactate (Lac-Hydrin) 1 appl DAILY EXT 11/01/16 09:00 12/01/16 08:59 11/04/16 08:58 1 APPL Potassium Chloride (Klor-Con Tab) 80 meq BID PO 10/31/16 21:00 11/30/16 20:59 11/04/16 08:59 80 MEQ Furosemide (Lasix Tab) 80 mg BIDM PO 11/01/16 07:30 12/01/16 07:29 11/04/16 09:00 80 MG Insulin Aspart (novoLOG ASPART) SLIDING SCALE G... ACHS SC 11/02/16 16:30 12/02/16 16:29 11/04/16 12:51 48 UNITS Objective Vital Signs Date Time Temp Pulse Resp B/P Pulse Ox O2 Delivery O2 Flow Rate FiO2 11/04/16 15:01 36.8 76 22 105/49 95 11/04/16 11:05 82 20 99 Room Air 11/04/16 08:45 98 Room Air 11/04/16 07:38 36.5 75 18 131/74 98 11/04/16 07:31 82 20 99 Room Air 11/04/16 03:52 64 20 98 Room Air 11/04/16 00:19 36.4 78 20 151/69 98 Trach Collar 6.0 28 11/04/16 00:00 Trach Collar 6.0 28 11/03/16 23:02 51 20 97 Room Air 11/03/16 19:03 95 20 96 Room Air 11/03/16 16:00 96 Room Air 10.0 28 Laboratory Results Item Value Date Time Gram Stain - Final Resulted 10/30/16 0000 Sputum Trach. Tube Suction Gram Stain - Final Complete 10/29/16 1318 Drainage - Surface Leg Right Lower Blood Culture - Preliminary Resulted 10/29/16 0145 Blood NO GROWTH TO DATE. Blood Culture - Preliminary Resulted 10/29/16 0140 Blood NO GROWTH TO DATE. Venous Doppler right leg RIGHT VENOUS DOPP LOWER EXT UNILAT CLINICAL HISTORY: unilateral leg swelling Right pain. Edema. TECHNIQUE: Venous Doppler COMPARISON STUDY: 05/04/2016 normal study FINDINGS: Normal study IMPRESSION: Normal study Last 24 Hours Test 11/03/16 16:26 11/03/16 20:28 11/04/16 05:45 11/04/16 07:48 Bedside Glucose 160 mg/dl 190 mg/dl 113 mg/dl White Blood Count 8.58 K/uL Red Blood Count 3.90 M/uL Hemoglobin 12.2 g/dL Hematocrit 33.9 % Mean Corpuscular Volume 86.9 fL Mean Corpuscular Hemoglobin 31.3 pg Mean Corpuscular Hemoglobin Concent 36.0 g/dl RDW Standard Deviation 44.5 fL RDW Coefficient of Variation 14.1 % Platelet Count 142 K/uL Mean Platelet Volume 10.3 fL Sodium Level 130 mmol/L Potassium Level 4.1 mmol/L Chloride Level 93 mmol/L Carbon Dioxide Level 28 mmol/L Anion Gap 9.0 mmol/L Blood Urea Nitrogen 13 mg/dl Creatinine 0.74 mg/dl Est Creatinine Clear Calc Drug Dose 194.3 ml/min Estimated GFR () 115.4 Estimated GFR (Non- 99.6 BUN/Creatinine Ratio 17.8 Random Glucose 102 mg/dl Calcium Level 8.6 mg/dl Magnesium Level 2.2 mg/dl Test 11/04/16 11:35 Bedside Glucose 215 mg/dl Assessment and Plan Morbidly obese diabetic male with CHF exacerbation and right lower extremity cellulitis. He is currently on IV Ceftaroline to improve coverage for lungs as well as RLE cellulitis. Will complete 7 days of therapy, but then feel that this patient can discontinue abx therapy. We will follow. PROVIDER ADDENDUM: Patient reviewed with Ms. Duggan. Agree with above assessment.
[2016-11-04] MEDS: OXYCODONE/ACETAMINOPHEN 10/325MG TAB PO PRN (16:21)
[2016-11-04] MEDS: RIVAROXABAN 10 MG TAB PO SCH (16:23)
--- NOTE | 2016-11-04 18:41 | Family Medicine Progress Note ---
Progress Note Date of Service Nov 04, 2016. Subjective Pt evaluation today including: conversation w/ patient, physical exam, chart review, lab review Pain: Right leg still slightly painful PO Intake: good Voiding: no voiding problems, no incontinence Notes that overall feels much better States that baseline is ambulating to toilet at home but nothing more; does not do any of own ADLs Right leg still swollen; notes chronic swelling at home towards end of day. Constitutional: No chills, No fever, No sweats Eyes: No eye pain, No redness, No worsening of vision ENT: No hearing loss, No nasal symptoms, No sore throat Respiratory: No cough, No sputum, No wheezing Cardiovascular: No chest pain, No claudication, No palpitations Abdomen: No diarrhea, No nausea, No pain, No vomiting Musculoskeletal: + calf pain, + swelling, No joint pain Male : No dysuria, No incontinence, No urinary frequency Neurologic: No memory loss, No vertigo, No weakness Psychiatric: No anxiety, No depression symptoms, No insomnia Heme: No abnormal bleeding/bruising, No clotting problems, No swollen lymph nodes Skin: No color change, No new/changing skin lesions, No rash Medications Current Inpatient Medications Medications (Trade) Dose Ordered Sig/Saige Route Start Time Stop Time Status Last Admin Dose Admin Acetaminophen (Tylenol Tab) 650 mg Q4H PRN PO 10/29/16 00:00 11/28/16 00:00 10/29/16 17:04 650 MG Al Hydrox/Mg Hydrox/Simethicone (Maalox Max Susp) 15 ml Q4H PRN PO 10/29/16 00:00 11/28/16 00:00 Magnesium Hydroxide (Milk Of Magnesia Susp) 30 ml Q6H PRN PO 10/29/16 00:00 11/28/16 00:00 Polyethylene (Miralax Powder Packet) 17 gm DAILY PRN PO 10/29/16 00:00 11/28/16 00:00 Ondansetron HCl (Zofran Inj) 4 mg Q6H PRN IV 10/29/16 00:00 11/28/16 00:00 Nitroglycerin (Nitrostat Tab) 0.4 mg UD PRN SL 10/29/16 00:00 11/28/16 00:00 Albuterol (Ventolin Hfa Inhaler) 1 puffs QID PRN INH 10/29/16 00:00 11/28/16 00:00 Aspirin (Ecotrin Tab) 81 mg DAILY PO 10/29/16 09:00 11/28/16 08:59 11/04/16 08:59 81 MG Atorvastatin Calcium (Lipitor Tab) 80 mg DAILY PO 10/29/16 09:00 11/28/16 08:59 11/04/16 08:57 80 MG Budesonide (Pulmicort Respules 0.5MG/ 2ML Neb Soln) 1 mg BIDR INH 10/29/16 08:00 11/28/16 07:59 11/04/16 07:27 1 MG Diltiazem HCl (Cardizem Tab) 30 mg QID PO 10/29/16 09:00 11/28/16 08:59 11/04/16 16:22 30 MG Dorzolamide HCl (Trusopt 2% Oph Soln) 1 drops BID OP 10/29/16 09:00 11/28/16 08:59 11/04/16 09:02 1 DROPS Albuterol/ Ipratropium (Duoneb) 3 ml Q4R INH 10/29/16 00:00 11/28/16 00:00 11/04/16 15:40 3 ML Isosorbide Mononitrate (Imdur Ext Rel Tab) 30 mg DAILY PO 10/29/16 09:00 11/28/16 08:59 11/04/16 09:00 30 MG Latanoprost (Xalatan Oph Soln) 1 drops HS OPB 10/29/16 21:00 11/28/16 20:59 11/03/16 20:34 1 DROPS Lisinopril (Zestril Tab) 10 mg DAILY PO 10/29/16 09:00 11/28/16 08:59 Future hold 11/04/16 09:01 10 MG Lorazepam (Ativan Tab) 1 mg QID PRN PO 10/29/16 00:00 11/28/16 00:00 11/04/16 16:21 1 MG Metoprolol Tartrate (Lopressor Tab) 25 mg BID PO 10/29/16 09:00 11/28/16 08:59 11/04/16 08:56 25 MG Multivitamins/ Minerals (Multivitamin W/ Minerals Tab) 1 tab DAILY PO 10/29/16 09:00 11/28/16 08:59 11/04/16 08:57 1 TAB Oxycodone/ Acetaminophen (Percocet 10-325MG Tab) 1 tab Q8 PRN PO 10/29/16 00:00 11/12/16 00:00 11/04/16 16:21 1 TAB Rivaroxaban (Xarelto Tab) 20 mg QDD PO 10/29/16 16:45 11/28/16 16:44 11/04/16 16:23 20 MG Spironolactone (Aldactone Tab) 25 mg BID17 PO 10/29/16 09:00 11/28/16 08:59 11/04/16 16:23 25 MG Glucose (Glucose 40% Gel) 15-30 GRAMS 15 GRAMS... UD PRN PO 10/29/16 02:45 11/28/16 02:44 Glucose (Glucose Chew Tab) 4-8 Tablets 4 Tabl... UD PRN PO 10/29/16 02:45 11/28/16 02:44 Dextrose (Dextrose 50% 50ML Syringe) 25-50ML OF 50% DW IV FOR... UD PRN IV 10/29/16 02:45 11/28/16 02:44 Glucagon (Glucagon Inj) 1 mg UD PRN SQ 10/29/16 02:45 11/28/16 02:44 Magnesium Oxide 800 mg 800 mg BID PO 10/29/16 21:00 11/28/16 20:59 11/04/16 08:56 800 MG Ceftaroline Fosamil/Sodium Chloride (Teflaro Inj/Nss 250ml) 270 ml @ 250 mls/hr Q12@0900,2100 IV 10/30/16 10:30 11/09/16 10:29 11/04/16 09:02 250 MLS/HR Miconazole Nitrate (Desenex Powder) 1 appln PRN PRN EXT 10/30/16 10:15 11/29/16 10:14 10/30/16 11:03 1 APPLN Insulin Glargine (Lantus Vial) 80 unit BID SC 10/30/16 21:00 11/29/16 20:59 11/04/16 09:36 80 UNIT Ammonium Lactate (Lac-Hydrin) 1 appl DAILY EXT 11/01/16 09:00 12/01/16 08:59 11/04/16 08:58 1 APPL Potassium Chloride (Klor-Con Tab) 80 meq BID PO 10/31/16 21:00 11/30/16 20:59 11/04/16 08:59 80 MEQ Furosemide (Lasix Tab) 80 mg BIDM PO 11/01/16 07:30 12/01/16 07:29 11/04/16 16:23 80 MG Insulin Aspart (novoLOG ASPART) SLIDING SCALE G... ACHS SC 11/02/16 16:30 12/02/16 16:29 11/04/16 18:04 46 UNITS Objective Vital Signs Date Time Temp Pulse Resp B/P Pulse Ox O2 Delivery O2 Flow Rate FiO2 11/04/16 15:55 Room Air 11/04/16 15:40 82 18 97 Room Air 11/04/16 15:01 36.8 76 22 105/49 95 11/04/16 11:05 82 20 99 Room Air 11/04/16 08:45 98 Room Air 11/04/16 07:38 36.5 75 18 131/74 98 11/04/16 07:31 82 20 99 Room Air 11/04/16 03:52 64 20 98 Room Air 11/04/16 00:19 36.4 78 20 151/69 98 Trach Collar 6.0 28 11/04/16 00:00 Trach Collar 6.0 28 11/03/16 23:02 51 20 97 Room Air 11/03/16 19:03 95 20 96 Room Air Physical Exam General Appearance: WD/WN, + obese (morbid) Eyes: normal inspection, EOMI ENT: hearing grossly normal, pharynx normal Neck: supple, no adenopathy, no JVD (difficult to assess given habitus), + pertinent finding Respiratory/Chest: chest non-tender, lungs clear, normal breath sounds, + pertinent finding (difficult auscultation given habitus) Cardiovascular: no gallop, no murmur Abdomen: normal bowel sounds, non tender, soft Extremities: non-tender, no pedal edema, no calf tenderness, + pertinent finding (right leg swelling, erythema, tenderness to palpation) Neurologic/Psychiatric: alert, normal mood/affect, oriented x 3 Skin: normal color, warm/dry, no rash Lymphatic: no adenopathy Laboratory Results Last 24 Hours Test 11/03/16 20:28 11/04/16 05:45 11/04/16 07:48 11/04/16 11:35 Bedside Glucose 190 mg/dl 113 mg/dl 215 mg/dl White Blood Count 8.58 K/uL Red Blood Count 3.90 M/uL Hemoglobin 12.2 g/dL Hematocrit 33.9 % Mean Corpuscular Volume 86.9 fL Mean Corpuscular Hemoglobin 31.3 pg Mean Corpuscular Hemoglobin Concent 36.0 g/dl RDW Standard Deviation 44.5 fL RDW Coefficient of Variation 14.1 % Platelet Count 142 K/uL Mean Platelet Volume 10.3 fL Sodium Level 130 mmol/L Potassium Level 4.1 mmol/L Chloride Level 93 mmol/L Carbon Dioxide Level 28 mmol/L Anion Gap 9.0 mmol/L Blood Urea Nitrogen 13 mg/dl Creatinine 0.74 mg/dl Est Creatinine Clear Calc Drug Dose 194.3 ml/min Estimated GFR () 115.4 Estimated GFR (Non- 99.6 BUN/Creatinine Ratio 17.8 Random Glucose 102 mg/dl Calcium Level 8.6 mg/dl Magnesium Level 2.2 mg/dl Test 11/04/16 16:48 Bedside Glucose 133 mg/dl Assessment and Plan 61 -year-old male with complex medical history, currently no day 6 of admission for shortness of breath, and lower extremity edema, secondary to combination of CHF and right leg cellultis. Our plan for him is as follows Acute on chronic right heart failure sec to cor pulmonale with preserved Left ventricular ejection fraction - Cardiology input appreciated, cor pulmonale with right heart failure. - Improving; globally negative 15.8 L - Continue oral Lasix 80 mg BID - I/Os and daily weights RLE cellulitis, recurrent - Coag negative staph - Subtle improvement it seems, appreciate infectious disease consult recommendations. Recommend total 7 days Ceftaroline; currently day 6/7 - Swelling likely 2/2 to venous insufficiency; recommend compression stockings and leg elevation at nighttime Hypokalemia/hypomagnesemia - Resolved; will repeat daily checks Chronic Hyponatremia - Stable since admission - Lasix puts at risk of worsening; needs daily BMP monitoring - No obvious mental status changes Type 2 Diabetes Mellitus - Continue sliding scale aspart - Continue Lantus 80 units Q12H - BSGs overall well controlled Atrial Fibrillation - Rate Controlled 70s-80s - Continue Xarelto, Diltiazem and metoprolol Obstructive Sleep Apnea - s/p Trach, uses special oxygenation system at night Coronary Artery Disease - Continue Aspirin, Atorvastatin, Metoprolol, Lisinopril, Imdur XR Chronic Hypertension - Continue lisinopril, metoprolol (monitor for hypotension as lasix increased), imdur COPD - continue Pulmicort and Duonebs Code Full DVT Prophylaxis - Will rule-out acute right DVT due to persistent leg swellign - Continue home dose of Xarelto - SCDs Continued [facility] stay due to: ambulation difficulties Discharge planning: uncertain Reviewed: Pt Seen/Exam by Me History diuresing well Constitutional: denies: fever Respiratory: negative: short of breath Cardiovascular: reports edema, denies chest pain Gastrointestinal/Abdominal: negative: abdominal pain General Appearance: no apparent distress, obese (morbidly) Respiratory: lungs clear, no respiratory distress Cardiovascular: regular rate, rhythm Extremities: other (right leg with venous stasis changes with some overlying erythema) Neurologic/Psychiatric: alert, oriented x 3 Assessment/Plan I have reviewed the medical record and performed a history and physical examination of this patient today. I have discussed the case with Dr. Rosario. The above note reflects my findings, conclusions, and recommendations.
[2016-11-04] MEDS: LATANOPROST 0.005% OP SOLN 2.5 ML BTL OPB SCH (19:38)
[2016-11-05] VITALS (11 sets, daily range): BP systolic 115–126; BP diastolic 65–71; PULSE 68–91; TEMP 36.5–36.6; O2SAT 94–98
[2016-11-05] MEDS: LORAZEPAM 1 MG TAB PO PRN ×4 (00:36→23:40)
[2016-11-05] MEDS: OXYCODONE/ACETAMINOPHEN 10/325MG TAB PO PRN ×3 (00:37→23:42)
[2016-11-05] MEDS: ALBUT/IPRATROP 3MG/0.5MG NEB 3 ML VIAL INH SCH ×6 (03:41→23:30)
[2016-11-05 06:42] LABS: HEMATOCRIT 34.1 % (42-52); MEAN CELL VOLUME 88.8 fL (80-100); MEAN CORPUSCULAR HEMOGLOBIN 31.3 pg (25-34); MEAN CORPUSCULAR HGB CONC 35.2 g/dl (32-36); MEAN PLATELET VOLUME 10.5 fL (7.4-10.4); PLATELET COUNT 146 K/uL (130-400); RED BLOOD COUNT 3.84 M/uL (4.7-6.1); WHITE BLOOD COUNT 8.58 K/uL (4.8-10.8)
[2016-11-05 07:15] LABS: BUN/CREATININE RATIO 16.5 (10-20); CALCIUM 8.5 mg/dl (8.5-10.1); CREATININE 0.74 mg/dl (0.60-1.40); POTASSIUM 4.2 mmol/L (3.5-5.1)
[2016-11-05] MEDS: BUDESONIDE 0.5 MG/2 ML VIAL (PULMICORT) INH SCH ×2 (07:42→19:48)
[2016-11-05] MEDS: CEFTAROLINE FOSAMIL INJ 600 MG in SODIUM CHLORIDE 0.9% 250ML 250 ML IV SCH ×2 (08:59→20:55)
[2016-11-05] MEDS: POTASSIUM CHLORIDE 20 MEQ TABCR PO SCH ×2 (09:00→21:03)
[2016-11-05] MEDS: MAGNESIUM OXIDE 400 MG TAB PO SCH ×2 (09:00→21:01)
[2016-11-05] MEDS: LISINOPRIL 10 MG TAB PO SCH (09:00)
[2016-11-05] MEDS: SPIRONOLACTONE 25 MG TAB PO SCH ×2 (09:00→17:17)
[2016-11-05] MEDS: ISOSORBIDE MONONITRATE 30 MG TABCR PO SCH (09:00)
[2016-11-05] MEDS: DORZOLAMIDE HCL 2% OPH SOLN 10 ML BTL OP SCH ×2 (09:01→21:03)
[2016-11-05] MEDS: METOPROLOL TARTRATE 25 MG TAB PO SCH ×2 (09:02→21:02)
[2016-11-05] MEDS: CEROVITE ADV FORMULA TAB PO SCH (09:02)
[2016-11-05] MEDS: ATORVASTATIN 40 MG TAB PO SCH (09:03)
[2016-11-05] MEDS: ASPIRIN 81 MG ECTAB PO SCH (09:03)
[2016-11-05] MEDS: DILTIAZEM HCL 30 MG TAB PO SCH ×4 (09:03→21:03)
[2016-11-05] MEDS: AMMONIUM LACTATE 12% LOTION 225 GM BTL EXT SCH (09:04)
[2016-11-05] MEDS: FUROSEMIDE 80 MG TAB PO SCH ×2 (09:04→17:18)
[2016-11-05] MEDS: INSULIN GLARGINE SC SCH ×2 (09:08→20:58)
[2016-11-05] MEDS: INSULIN ASPART 100 UNITS/ML VIAL SC SCH ×4 (09:08→20:55)
[2016-11-05] MEDS: ACETAMINOPHEN 325 MG TAB PO PRN (17:16)
[2016-11-05] MEDS: RIVAROXABAN 10 MG TAB PO SCH (17:17)
[2016-11-05] MEDS: LATANOPROST 0.005% OP SOLN 2.5 ML BTL OPB SCH (20:57)
--- NOTE | 2016-11-05 22:37 | Family Medicine Progress Note ---
Progress Note Date of Service Nov 05, 2016. Subjective Pt evaluation today including: conversation w/ patient, physical exam, chart review, lab review Pain: Knee and back; long-standing Voiding: no voiding problems, no incontinence Patient states he is tired and trying to regain strength Became annoyed that PT was ordered Would like to go home but doesn't feel ready to yet Goal ambulation is to be able to reach bathroom Constitutional: No chills, No fever Eyes: No redness, No worsening of vision ENT: No hearing loss, No nasal symptoms, No sore throat Respiratory: No cough, No shortness of breath, No wheezing Cardiovascular: No chest pain, No claudication, No palpitations Abdomen: No constipation, No diarrhea, No nausea, No pain, No vomiting Musculoskeletal: No joint pain, No muscle pain Male : No dysuria, No incontinence Neurologic: No numbness/tingling, No vertigo, No weakness Medications Current Inpatient Medications Medications (Trade) Dose Ordered Sig/Saige Route Start Time Stop Time Status Last Admin Dose Admin Acetaminophen (Tylenol Tab) 650 mg Q4H PRN PO 10/29/16 00:00 11/28/16 00:00 11/05/16 17:16 650 MG Al Hydrox/Mg Hydrox/Simethicone (Maalox Max Susp) 15 ml Q4H PRN PO 10/29/16 00:00 11/28/16 00:00 Magnesium Hydroxide (Milk Of Magnesia Susp) 30 ml Q6H PRN PO 10/29/16 00:00 11/28/16 00:00 Polyethylene (Miralax Powder Packet) 17 gm DAILY PRN PO 10/29/16 00:00 11/28/16 00:00 Ondansetron HCl (Zofran Inj) 4 mg Q6H PRN IV 10/29/16 00:00 11/28/16 00:00 Nitroglycerin (Nitrostat Tab) 0.4 mg UD PRN SL 10/29/16 00:00 11/28/16 00:00 Albuterol (Ventolin Hfa Inhaler) 1 puffs QID PRN INH 10/29/16 00:00 11/28/16 00:00 Aspirin (Ecotrin Tab) 81 mg DAILY PO 10/29/16 09:00 11/28/16 08:59 11/05/16 09:03 81 MG Atorvastatin Calcium (Lipitor Tab) 80 mg DAILY PO 10/29/16 09:00 11/28/16 08:59 11/05/16 09:03 80 MG Budesonide (Pulmicort Respules 0.5MG/ 2ML Neb Soln) 1 mg BIDR INH 10/29/16 08:00 11/28/16 07:59 11/05/16 19:48 1 MG Diltiazem HCl (Cardizem Tab) 30 mg QID PO 10/29/16 09:00 11/28/16 08:59 11/05/16 21:03 30 MG Dorzolamide HCl (Trusopt 2% Oph Soln) 1 drops BID OP 10/29/16 09:00 11/28/16 08:59 11/05/16 21:03 1 DROPS Albuterol/ Ipratropium (Duoneb) 3 ml Q4R INH 10/29/16 00:00 11/28/16 00:00 11/05/16 19:48 3 ML Isosorbide Mononitrate (Imdur Ext Rel Tab) 30 mg DAILY PO 10/29/16 09:00 11/28/16 08:59 11/05/16 09:00 30 MG Latanoprost (Xalatan Oph Soln) 1 drops HS OPB 10/29/16 21:00 11/28/16 20:59 11/05/16 20:57 1 DROPS Lisinopril (Zestril Tab) 10 mg DAILY PO 10/29/16 09:00 11/28/16 08:59 Future hold 11/05/16 09:00 10 MG Lorazepam (Ativan Tab) 1 mg QID PRN PO 10/29/16 00:00 11/28/16 00:00 11/05/16 17:15 1 MG Metoprolol Tartrate (Lopressor Tab) 25 mg BID PO 10/29/16 09:00 11/28/16 08:59 11/05/16 21:02 25 MG Multivitamins/ Minerals (Multivitamin W/ Minerals Tab) 1 tab DAILY PO 10/29/16 09:00 11/28/16 08:59 11/05/16 09:02 1 TAB Oxycodone/ Acetaminophen (Percocet 10-325MG Tab) 1 tab Q8 PRN PO 10/29/16 00:00 11/12/16 00:00 11/05/16 09:13 1 TAB Rivaroxaban (Xarelto Tab) 20 mg QDD PO 10/29/16 16:45 11/28/16 16:44 11/05/16 17:17 20 MG Spironolactone (Aldactone Tab) 25 mg BID17 PO 10/29/16 09:00 11/28/16 08:59 11/05/16 17:17 25 MG Glucose (Glucose 40% Gel) 15-30 GRAMS 15 GRAMS... UD PRN PO 10/29/16 02:45 11/28/16 02:44 Glucose (Glucose Chew Tab) 4-8 Tablets 4 Tabl... UD PRN PO 10/29/16 02:45 11/28/16 02:44 Dextrose (Dextrose 50% 50ML Syringe) 25-50ML OF 50% DW IV FOR... UD PRN IV 10/29/16 02:45 11/28/16 02:44 Glucagon (Glucagon Inj) 1 mg UD PRN SQ 10/29/16 02:45 11/28/16 02:44 Magnesium Oxide 800 mg 800 mg BID PO 10/29/16 21:00 11/28/16 20:59 11/05/16 21:01 800 MG Ceftaroline Fosamil/Sodium Chloride (Teflaro Inj/Nss 250ml) 270 ml @ 250 mls/hr Q12@0900,2100 IV 10/30/16 10:30 11/05/16 23:29 11/05/16 20:55 250 MLS/HR Miconazole Nitrate (Desenex Powder) 1 appln PRN PRN EXT 10/30/16 10:15 11/29/16 10:14 10/30/16 11:03 1 APPLN Insulin Glargine (Lantus Vial) 80 unit BID SC 10/30/16 21:00 11/29/16 20:59 11/05/16 20:58 80 UNIT Ammonium Lactate (Lac-Hydrin) 1 appl DAILY EXT 11/01/16 09:00 12/01/16 08:59 11/05/16 09:04 1 APPL Potassium Chloride (Klor-Con Tab) 80 meq BID PO 10/31/16 21:00 11/30/16 20:59 11/05/16 21:03 80 MEQ Furosemide (Lasix Tab) 80 mg BIDM PO 11/01/16 07:30 12/01/16 07:29 11/05/16 17:18 80 MG Insulin Aspart (novoLOG ASPART) SLIDING SCALE G... ACHS SC 11/02/16 16:30 12/02/16 16:29 11/05/16 20:55 39 UNITS Objective Vital Signs Date Time Temp Pulse Resp B/P Pulse Ox O2 Delivery O2 Flow Rate FiO2 11/05/16 21:00 78 123/65 11/05/16 19:48 84 20 94 Trach Collar 28 11/05/16 16:55 36.6 90 20 115/70 97 Room Air 11/05/16 16:30 97 Room Air 6.0 Trach Collar 11/05/16 15:55 91 20 94 Trach Collar 28 11/05/16 11:44 88 20 98 Room Air 11/05/16 08:07 36.5 76 20 115/71 97 Room Air 11/05/16 08:00 Room Air 11/05/16 07:46 85 20 96 Room Air 11/05/16 03:41 74 20 98 Trach Collar 28 11/05/16 00:01 Trach Collar 11/05/16 00:01 36.6 68 20 126/68 98 Trach Collar 6.0 11/04/16 23:29 78 18 97 Room Air Physical Exam General Appearance: WD/WN, no apparent distress, + obese Eyes: normal inspection, EOMI ENT: hearing grossly normal, pharynx normal Neck: supple, no adenopathy, no JVD Respiratory/Chest: lungs clear, no respiratory distress Cardiovascular: regular rate, rhythm, no gallop, no murmur Abdomen: normal bowel sounds, non tender, soft Extremities: non-tender, + pedal edema (right leg erythematous, swelling improved) Neurologic/Psychiatric: alert, normal mood/affect, oriented x 3 Skin: normal color, warm/dry, no rash Lymphatic: no adenopathy Laboratory Results Last 24 Hours Test 11/05/16 06:12 11/05/16 06:15 11/05/16 07:35 11/05/16 11:32 White Blood Count 8.58 K/uL Red Blood Count 3.84 M/uL Hemoglobin 12.0 g/dL Hematocrit 34.1 % Mean Corpuscular Volume 88.8 fL Mean Corpuscular Hemoglobin 31.3 pg Mean Corpuscular Hemoglobin Concent 35.2 g/dl RDW Standard Deviation 46.6 fL RDW Coefficient of Variation 14.2 % Platelet Count 146 K/uL Mean Platelet Volume 10.5 fL Sodium Level 130 mmol/L Potassium Level 4.2 mmol/L Chloride Level 95 mmol/L Carbon Dioxide Level 27 mmol/L Anion Gap 8.0 mmol/L Blood Urea Nitrogen 12 mg/dl Creatinine 0.74 mg/dl Est Creatinine Clear Calc Drug Dose 194.3 ml/min Estimated GFR () 115.4 Estimated GFR (Non- 99.6 BUN/Creatinine Ratio 16.5 Random Glucose 103 mg/dl Calcium Level 8.5 mg/dl Bedside Glucose 119 mg/dl 209 mg/dl Test 11/05/16 17:27 11/05/16 20:31 Bedside Glucose 127 mg/dl 144 mg/dl Assessment and Plan 61 -year-old male with complex medical history as outlined below Day 7 of admission for shortness of breath, and lower extremity edema, secondary to combination of CHF and right leg cellultis. Seems to be doing well, per discussion with patient functionally at his baseline where he can ambulate to toilet but is still getting short of breath. He is near ready for discharge but needs to have PT to further strength so he can remain home once discharged. Our plan for him is as follows Acute on chronic right heart failure sec to cor pulmonale with preserved Left ventricular ejection fraction - Cardiology input appreciated, cor pulmonale with right heart failure. - Improving; globally negative > 10 L - Continue oral Lasix 80 mg BID - I/Os and daily weights RLE cellulitis, recurrent - Coag negative staph - Subtle improvement it seems, appreciate infectious disease consult recommendations. Day 7 Ceftarolin; D/C after today - Swelling likely 2/2 to venous insufficiency; recommend compression stockings and leg elevation at nighttime Hypokalemia/hypomagnesemia - Resolved; will repeat daily checks Chronic Hyponatremia - Stable since admission, currently 130 - Lasix puts at risk of worsening; needs daily BMP monitoring - No obvious mental status changes Type 2 Diabetes Mellitus - Continue sliding scale aspart - Continue Lantus 80 units Q12H - BSGs overall well controlled Atrial Fibrillation - Rate Controlled 70s-80s - Continue Xarelto, Diltiazem and metoprolol Obstructive Sleep Apnea - s/p Trach, uses special oxygenation system at night as needed for SOB Coronary Artery Disease - Continue Aspirin, Atorvastatin, Metoprolol, Lisinopril, Imdur XR Chronic Hypertension - Continue lisinopril, metoprolol COPD - continue Pulmicort and Duonebs Code Full DVT Prophylaxis - U/S negative for DVT - Continue home dose of Xarelto - SCDs Reviewed: Pt Seen/Exam by Me History continues to urinating a lot Constitutional: denies: fever Respiratory: negative: short of breath Cardiovascular: denies chest pain Gastrointestinal/Abdominal: positive: other (flank and back pain controlled with pain medication) General Appearance: no apparent distress, obese (morbidly) Respiratory: lungs clear, no respiratory distress Cardiovascular: regular rate, rhythm Neurologic/Psychiatric: alert, oriented x 3 Skin Characteristics: other (right leg with venous stasis changes) Assessment/Plan I have reviewed the medical record and performed a history and physical examination of this patient today. I have discussed the case with Dr. Rosario. The above note reflects my findings, conclusions, and recommendations. Diuresing well. Venous stasis and cellulitis in right leg improving. Anticipate d/c home in am
[2016-11-05 23:18] LABS: HEMATOCRIT 33.5 % (42-52); MEAN CELL VOLUME 87.7 fL (80-100); MEAN CORPUSCULAR HEMOGLOBIN 30.9 pg (25-34); MEAN CORPUSCULAR HGB CONC 35.2 g/dl (32-36); MEAN PLATELET VOLUME 10.6 fL (7.4-10.4); PLATELET COUNT 162 K/uL (130-400); RED BLOOD COUNT 3.82 M/uL (4.7-6.1); WHITE BLOOD COUNT 9.17 K/uL (4.8-10.8)
[2016-11-06 00:16] VITALS: BP 138/71; PULSE 67; O2SAT 97
[2016-11-06 03:14] VITALS: PULSE 88; O2SAT 94
[2016-11-06] MEDS: ALBUT/IPRATROP 3MG/0.5MG NEB 3 ML VIAL INH SCH ×3 (03:14→11:40)
[2016-11-06 07:31] VITALS: PULSE 72; O2SAT 98
[2016-11-06] MEDS: BUDESONIDE 0.5 MG/2 ML VIAL (PULMICORT) INH SCH (07:31)
[2016-11-06 07:56] VITALS: BP 130/82; PULSE 60; TEMP 36.9; O2SAT 100
[2016-11-06] MEDS: AMMONIUM LACTATE 12% LOTION 225 GM BTL EXT SCH (08:17)
[2016-11-06] MEDS: LORAZEPAM 1 MG TAB PO PRN ×2 (08:17→12:44)
[2016-11-06] MEDS: DORZOLAMIDE HCL 2% OPH SOLN 10 ML BTL OP SCH (08:17)
[2016-11-06] MEDS: ISOSORBIDE MONONITRATE 30 MG TABCR PO SCH (08:17)
[2016-11-06] MEDS: LISINOPRIL 10 MG TAB PO SCH (08:18)
[2016-11-06] MEDS: FUROSEMIDE 80 MG TAB PO SCH (08:18)
[2016-11-06] MEDS: DILTIAZEM HCL 30 MG TAB PO SCH ×2 (08:18→12:46)
[2016-11-06] MEDS: ASPIRIN 81 MG ECTAB PO SCH (08:18)
[2016-11-06] MEDS: POTASSIUM CHLORIDE 20 MEQ TABCR PO SCH (08:18)
[2016-11-06] MEDS: ATORVASTATIN 40 MG TAB PO SCH (08:18)
[2016-11-06] MEDS: METOPROLOL TARTRATE 25 MG TAB PO SCH (08:18)
[2016-11-06] MEDS: SPIRONOLACTONE 25 MG TAB PO SCH (08:18)
[2016-11-06] MEDS: CEROVITE ADV FORMULA TAB PO SCH (08:18)
[2016-11-06] MEDS: MAGNESIUM OXIDE 400 MG TAB PO SCH (08:19)
[2016-11-06] MEDS: INSULIN ASPART 100 UNITS/ML VIAL SC SCH ×2 (08:25→12:44)
[2016-11-06] MEDS: INSULIN GLARGINE SC SCH (08:26)
[2016-11-06 11:41] VITALS: PULSE 79; O2SAT 98
[2016-11-06] MEDS: OXYCODONE/ACETAMINOPHEN 10/325MG TAB PO PRN (12:45)
--- NOTE | 2016-11-06 13:15 | Discharge Instructions ---
Discharge Instructions Date of Service Nov 06, 2016. Admission Reason for Admission: Cellulitis,Congestive Heart Failure Discharge Discharge Diagnosis / Problem: Acute CHF, right lower extremity cellulitis Discharge Goals Goal(s): Decrease discomfort, Improve function, Improve disease control, Improve nutritional status Activity Recommendations Activity Limitations: resume your previous activity Lifting Limitations: gradually increase as tolerated Exercise/Sports Limitations: gradually increase as tolerated May Resume Sexual Activity: when tolerated Shower/Bathe: no limitations . Instructions / Follow-Up Instructions / Follow-Up You were admitted because of worsening swelling in the legs, and pain and inflammation of the right leg. You were diagnosed with exacerbation of congestive heart failure. You were also were diagnosed with an infection of the right leg (Cellulitis). We treated for congestive heart failure with daily diuretic. Cardiology followed along and make recommendations on adjusting your medications. We were able to achieve good diuresis with Lasix alone. Prior to arrival you were taking metolazone, but this can increase the risk of low sodium levels, so we decided to stop this in hopes that your sodium levels can improve. We did continue spironolactone. The following medication adjustments have been made: - Continue Lasix and spironolactone - Stop metolazone - Continue taking daily potassium supplementation to prevent low potassium levels. - Since we are adjusting your diuretics in the setting of low sodium levels, please have blood work done in 2-3 days to check your kidney function and electrolytes and to make sure that they remain stable. These results should be forwarded to your primary care provider. To prevent worsening of heart failure, please adhere to the following: - Please maintain a low sodium diet, less than 2 g of salt a day - Please weigh yourself daily; if she noticed that you abruptly put on 3-5 pounds, take an extra dose of your Lasix that day. - Please follow-up with your regular political science faculty member to ensure that they have no additional recommendations. Regarding the infection in your leg, we treated you with a course of intravenous antibiotics. You completed the course successfully and we expect this to improve. To rule out the chance of a clot in your leg, we did an ultrasound of your right leg which was fortunately normal. To help chronic swelling of your leg, please elevate your leg at nighttime and if tolerated wear compression stockings. While here in the hospital, we did stop your home diabetic medications and put you on an insulin schedule here. However when you go home, you can resume your regular medications for your diabetes. If your symptoms fail to improve, acutely worsen, please seek medical attention immediately by either calling your primary care provider or going to your nearest emergency department. Otherwise, please see your primary care provider in 3-5 days to ensure that your symptoms continue to improve. It was a pleasure being involved in your care, and we will issue all the best. Current Hospital Diet Patient's current hospital diet: AHA Diet (Heart Healthy), Diabetes Type 2 Diet Discharge Diet Recommended Diet: AHA Diet (Heart Healthy), Low Sodium Diet (2gm Na), Diabetes Type 2 Diet Fluid Restriction: 2000 ml (8 cups) Pending Studies Studies pending at discharge: no Laboratory Results Hemoglobin A1c Test 10/29/16 09:52 Range/Units Estimated Average Glucose 180 mg/dl Hemoglobin A1c 7.9 H 4.5-5.6 % Medical Emergencies . Who to Call and When: Medical Emergencies: If at any time you feel your situation is an emergency, please call 911 immediately. . Non-Emergent Contact Non-Emergency issues call your: Primary Care Provider . . "Provider Documentation" section prepared by Misbah Rosario. VTE Core Measure Inpt VTE Proph given/why not?: Treatment not indicated (On xarelto)
[2016-11-06 13:31] VITALS: BP 130/82; PULSE 79; TEMP 36.9; O2SAT 98
--- NOTE | 2016-11-06 15:28 | Discharge Summary ---
Discharge Summary Date of Service Nov 06, 2016. (Misbah Rosario MD) Discharge Summary Admission Date: Oct 29, 2016 at 00:21 Discharge Date: Nov 06, 2016 Discharge Disposition: Home Principal Diagnosis: acute CHF exaccerbation; left leg cellulitis Problems/Secondary Diagnoses: (1) Morbid obesity Status: Chronic Consultations: Cardiology Infectious Diseases (Misbah Rosario MD) Medication Reconciliation Continued Medications: Albuterol Hfa (Ventolin Hfa) 200 Puffs/05528 Mcg Aers 1 PUFFS INH QID PRN for SOB/Wheezing, #1 INHALER Aspirin (Aspirin 81) 81 Mg Tab 81 MG PO DAILY Atorvastatin (Lipitor) 80 Mg Tab 80 MG PO DAILY, TAB Bacitracin (Topical) (Bacitracin) 500 Unit/Gm Oin 1 APPLN TOP DAILY for AFFECTED AREA for 7 Days, #15 GM Beclomethasone Dipropionate (N (Qnasl) 80 Mcg/Act Aer 1 SPRY SIMBA DAILY, #8.7 GM 11 Refills Budesonide (Pulmicort Respules 0.5MG/2ML) 0.5 Mg/2 Ml Nebu 2 ML INH BID, EA Desloratadine (Clarinex) 5 Mg Tab 5 MG PO DAILY, TAB Diltiazem Hcl (Cardizem) 30 Mg Tab 30 MG PO QID, TAB Dorzolamide Hcl (Trusopt Oph) 2 % Vanessa 1 DROPS OP BID, #30 ML 3 Refills Fish Oil ([place]-3) 1 Ea Cap 1 CAP PO DAILY, CAP Furosemide (Lasix) 80 Mg Tab 80 MG PO BID, TAB Glucagon (Glucagon Emergency Kit) 1 Mg Kit 1 DOSE INJ UD Yfgpxorv-Iyalqsgkkswk-Ofajgjmu (Artificial Tears) 1 Isreal Isreal 1 DROP OPR HS PRN for DRYNESS Guaifenesin (Mucinex Maximum Strength) 1,200 Mg Tab 1200 MG PO BID for 15 Days, #3 TAB Insulin Aspart (Novolog Flexpen) 100 Units/Ml Inj 81 UNITS SQ QAM, #210 Insulin Aspart (Novolog Flexpen) 100 Units/Ml Inj 77 UNITS SQ QPM Insulin Aspart (Novolog Flexpen) 100 Units/Ml Inj 44 UNITS SQ DAILY TAKES WITH LUNCH Insulin Glargine (Lantus Solostar) 100 Unit/Ml Inj 80 UNITS SC AMPM, PEN Ipratropium-Albuterol (Duoneb) 3 Ml Nebu 1 TREATMENT INH Q4H, INHA Isosorbide Mononitrate (Isosorbide Mononitrate ER) 30 Mg Tabcr 30 MG PO DAILY Latanoprost (Latanoprost) 37 Drops/2.5 Ml Soln 1 DROP OPB HS, #8 Lisinopril (Zestril) 10 Mg Tab 10 MG PO DAILY, TAB Lorazepam (Lorazepam) 1 Mg Tab 1 MG PO QID PRN for Anxiety Magnesium Oxide (Mag-Ox) 400 Mg Tab 400 MG PO BID, TAB Metoprolol Tartrate (Lopressor) (Lopressor) 25 Mg Tab 25 MG PO BID, TAB Multivitamins/Minerals (Mvi With Minerals) Tab 1 TAB PO DAILY, TAB Nitroglycerin (Nitrostat) 0.4 Mg Tab 1 TAB SL UD, #100 TAB 3 Refills Oxycodone/Acetaminophen 10MG/325MG (Percocet 10MG/325MG) Tab 1 TAB PO Q8 PRN for Pain, TAB Potassium Ext Rel (Klor-Con) 20 Meq Tabcr 60 MEQ PO BID, TAB Rivaroxaban (Xarelto) 20 Mg Tab 20 MG PO DAILY for 30 Days, 11 Refills Spironolactone (Aldactone) 25 Mg Tab 25 MG PO BID, TAB Discontinued Medications: Metolazone (Zaroxolyn) 5 Mg Tab 5 MG PO DAILY, TAB Discharge Exam Review of Systems: Constitutional: No chills, No fever, No sweats, No weight loss Eyes: No eye pain, No redness, No worsening of vision ENT: No nasal symptoms, No sore throat, No tinnitus Respiratory: No cough, No shortness of breath, No sputum, No wheezing Cardiovascular: No chest pain, No palpitations Abdomen: No constipation, No diarrhea, No nausea, No pain, No vomiting Genitourinary - Male: No dysuria, No hematuria, No urinary frequency Neurologic: No numbness/tingling, No paralysis, No vertigo Psychiatric: No anxiety, No insomnia Hematologic / Lymphatic: No clotting problems, No night sweats, No swollen lymph nodes Integumentary: No rash Physical Exam: General Appearance: WD/WN, no apparent distress, + obese (morbidly obese) Eyes: normal inspection, EOMI ENT: hearing grossly normal, pharynx normal, + pertinent finding ( tracheostomy) Neck: supple, no adenopathy, no JVD Respiratory/Chest: lungs clear, no respiratory distress, + pertinent finding (distant breath sounds) Cardiovascular: no gallop, no murmur, + irregularly irregular Abdomen / GI: normal bowel sounds, non tender, soft, + pertinent finding Extremities: no calf tenderness, + pertinent finding (right leg erythema) Neurologic/Psychiatric: alert, normal mood/affect, oriented x 3 Skin: normal color, warm/dry, no rash Lymphatic: no adenopathy (Misbah Rosario MD) Review of Systems: Constitutional: No fever Respiratory: No shortness of breath Cardiovascular: No chest pain Abdomen: No pain Physical Exam: General Appearance: no apparent distress, + obese (morbidly) Respiratory/Chest: lungs clear, no respiratory distress Cardiovascular: regular rate, rhythm Extremities: + pedal edema Neurologic/Psychiatric: alert, oriented x 3 Skin: + pertinent finding (right leg erythema much improved) (Miguelina Bello M.D.) Hospital Course 61 y/o M with h/o of Afib on xarelto, ALLIE s/p Trach, IDDM, Chronic Cellulitis, CHF, Morbid obesity, CAD s/p CABG and stents, Chronic LE edema, COPD who presented with a 3 day history of increasing shortness of breath and 25 lb weight gain. He reported that his right lower leg was edematous and seeping. His notes that they have been instructed to go to the hospital when he gains significant amount of weight. He was diagnosed with acute lower extremity edema and cellulitis of his right lower extremity. His hospital course is as follows: Acute on chronic right heart failure sec to cor pulmonale with preserved Left ventricular ejection fraction - Cardiology input appreciated, cor pulmonale with right heart failure. 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 arrange for his primary cardiology follow-up RLE cellulitis, recurrent - Coag negative staph - Completed 7 day course of IV Ceftarolin; marked improvement in swelling and pain - Venous ultrasound negative for DVT - Likely chronic component to swelling due to venous insufficiency; recommend compression stockings and leg elevation at nighttime Chronic Hyponatremia - Stable since admission, remained around 130 - Metolazone held due to risk of worsening hyponatremia; discontinued at discharge - Recommended repeating BMP 2-3 days following discharge to ensure sodium is stable Type 2 Diabetes Mellitus - Resumed home medications at discharge - HbA1c 7.9 Atrial Fibrillation - Rate Controlled 70s-80s - No incidents of RVR - Continue Xarelto, Diltiazem and metoprolol during hospitalization and at discharge Obstructive Sleep Apnea - s/p Trach - Respiratory status stable at discharge Coronary Artery Disease - Continuee Aspirin, Atorvastatin, Metoprolol, Lisinopril, Imdur XR Chronic Hypertension - Continued lisinopril, metoprolol COPD - continue Pulmicort and Duonebs DVT Prophylaxis - Continued home dose of Xarelto The patient is advised to have the following follow-up appointments - Primary cardiology in 2-4 weeks - Primary care provider in 7-10 days Patient requires repeat labs (BMP) in 2-3 days to ensure stable electrolytes in the setting of changes made to diuretics at discharge. The patient was feeling well on the day of discharge and was discharged in stable condition. Total Time Spent: Less than 30 minutes This includes examination of the patient, discharge planning, medication reconciliation, and communication with other providers. (Misbah Rosario MD) I have reviewed the medical record and performed a history and physical examination of this patient today. I have discussed the case with Dr. Rosario. The above note reflects my findings, conclusions, and recommendations. Total Time Spent: Greater than 30 minutes (35 min) (Miguelina Bello M.D.) Discharge Instructions Please refer to the electronic Patient Visit Report (Discharge Instructions) for additional information. (Misbah Rosario MD) Follow-Up As noted in hospital course (Misbah Rosario MD) Additional Copies To Christofer Hanley DO
[2017-03-18] MEDS ORDERED: ATOR-26 PO (08:12)
[2017-03-18] MEDS ORDERED: LISI-461 PO (08:14)
[2017-03-18] MEDS ORDERED: MULT-513 PO (08:19)
[2017-03-18] MEDS ORDERED: OMEG10007 PO (08:21)
[2017-03-23] MEDS ORDERED: MGNO400 PO (11:42)
[2017-03-23] MEDS ORDERED: SDMC1 PO (11:42)
[2017-03-23] MEDS ORDERED: LVQ750 PO (11:42)
== END 2016-11-06 15:52 | disposition home or self-care (01) | DRG 292 ==
LOC: CANRESERV → ENRESERVDT → ENRESERVTM → C.EDB 18:46 → C.2E 10-29 00:21 → C.4E 11-01 19:01
PROVIDERS: ADMIT Hospitalist; ATTEND Family Medicine
DX: I50.33 Acute on chronic diastolic (congestive) heart failure (principal); Z68.44 Body mass index [BMI] 60.0-69.9, adult; L03.116 Cellulitis of left lower limb; L03.115 Cellulitis of right lower limb; E87.1 Hypo-osmolality and hyponatremia; E66.01 Morbid (severe) obesity due to excess calories; J44.9 Chronic obstructive pulmonary disease, unspecified; I48.91 Unspecified atrial fibrillation; I25.10 Atherosclerotic heart disease of native coronary artery without angina pectoris; E87.6 Hypokalemia; E83.42 Hypomagnesemia; E11.9 Type 2 diabetes mellitus without complications; G47.33 Obstructive sleep apnea (adult) (pediatric); I27.81 Cor pulmonale (chronic); I87.8 Other specified disorders of veins; E78.00 Pure hypercholesterolemia, unspecified; E87.70 Fluid overload, unspecified; I11.0 Hypertensive heart disease with heart failure; Z95.1 Presence of aortocoronary bypass graft; Z87.891 Personal history of nicotine dependence; Z79.01 Long term (current) use of anticoagulants; Z79.4 Long term (current) use of insulin; Z23 Encounter for immunization; Z79.82 Long term (current) use of aspirin; Z79.51 Long term (current) use of inhaled steroids; Z79.891 Long term (current) use of opiate analgesic; Z79.899 Other long term (current) drug therapy; Z95.5 Presence of coronary angioplasty implant and graft

== ENCOUNTER 2016-11-14 16:54 | Inpatient (IN) | payer OTHER ==
[~2016-11-14] VITALS: Ht 182.9 cm; Wt 206.5 kg
[~2016-11-14 16:54] MED LIST changes: -ALBUAER2 INH; -LATA0.009 OPB; -LEVO1TAB35 PO; -METO5TAB25 PO; -SYMIN160 INH; +XLTOPS OPB
--- NOTE | 2016-11-14 17:35 | EMERGENCY ROOM VISIT NOTE ---
History Report prepared by Shine: Bud Lindsey Under the Supervision of: Dr. Gustavo Piña D.O. First contact with patient: 17:08 Chief Complaint: RESPIRATORY PROBLEMS Stated Complaint: SOB, WATER RETENTION, LEG LOOKS INFECTED History of Present Illness The patient is a 61 year old male who presents to the Emergency Room with complaints of persistent shortness of breath for the past few days. The patient also complains of productive cough, fevers, retaining water, decreased urination , and more swelling legs than usual. The patient notes that his cough is productive and notes that some phlegm and blood are getting stuck in his tracheotomy. He also has an old leg wound that he thinks is infected again and is seeping more fluid. The patient was recently discharged from the hospital two weeks ago with similar symptoms. He denies chest pain at this time. Source of History: patient Onset: persistent Position: other (global) Timing: other (persistent) Associated Symptoms: + cough (productive), + fevers, + urinary symptoms ( decreased urination), No chest pain Note: Other associated symptoms: retaining water, more swelling legs than usual, infected leg wound, seeping fluid Review of Systems See HPI for pertinent positives & negatives. A total of 10 systems reviewed and were otherwise negative. Past Medical & Surgical Medical Problems: (1) Cellulitis (2) Cellulitis and abscess of leg (3) CHF exacerbation (4) COPD (chronic obstructive pulmonary disease) (5) COPD exacerbation (6) Diabetes (7) Dyspnea (8) Fever chills (9) HCAP (healthcare-associated pneumonia) (10) Hemoptysis (11) Hyperlipidemia (12) Morbid obesity (13) PNA (pneumonia) (14) Sepsis due to Streptococcus pneumoniae (15) SOB (shortness of breath) Surgical Problems: (1) Tracheostomy in place Family History Diabetes mellitus Heart disease Social History Smoking Status: Former Smoker Drug Use: none Marital Status: Occupation Status: unemployed Current/Historical Medications Scheduled Aspirin (Aspirin 81), 81 MG PO DAILY Atorvastatin (Lipitor), 80 MG PO DAILY Bacitracin (Topical) (Bacitracin), 1 APPLN TOP DAILY Beclomethasone Dipropionate (N (Qnasl), 1 SPRY SIMBA DAILY Budesonide (Pulmicort Respules 0.5MG/2ML), 2 ML INH BID Desloratadine (Clarinex), 5 MG PO DAILY Diltiazem Hcl (Cardizem), 30 MG PO QID Dorzolamide Hcl (Trusopt Oph), 1 DROPS OP BID Fish Oil ([place]-3), 1 CAP PO DAILY Furosemide (Lasix), 80 MG PO BID Glucagon (Glucagon Emergency Kit), 1 DOSE INJ UD Guaifenesin (Mucinex Maximum Strength), 1,200 MG PO BID Insulin Aspart (Novolog Flexpen), 81 UNITS SQ QAM Insulin Aspart (Novolog Flexpen), 77 UNITS SQ QPM Insulin Aspart (Novolog Flexpen), 44 UNITS SQ DAILY Insulin Glargine (Lantus Solostar), 80 UNITS SC AMPM Ipratropium-Albuterol (Duoneb), 1 TREATMENT INH Q4H Isosorbide Mononitrate (Isosorbide Mononitrate ER), 30 MG PO DAILY Latanoprost (Xalatan 0.005% Oph Vanessa), 1 DROPS OP HS Lisinopril (Zestril), 10 MG PO DAILY Magnesium Oxide (Mag-Ox), 400 MG PO BID Metoprolol Tartrate (Lopressor) (Lopressor), 25 MG PO DAILY Multivitamins/Minerals (Mvi With Minerals), 1 TAB PO DAILY Nitroglycerin (Nitrostat), 1 TAB SL UD Potassium Ext Rel (Klor-Con), 60 MEQ PO BID Rivaroxaban (Xarelto), 20 MG PO DAILY Spironolactone (Aldactone), 25 MG PO BID Scheduled PRN Albuterol Hfa (Ventolin Hfa), 1 PUFFS INH QID PRN for SOB/Wheezing Amruinxd-Ufwconyjbhdo-Sfkqwtps (Artificial Tears), 1 DROP OPR HS PRN for DRYNESS Lorazepam (Lorazepam), 1 MG PO QID PRN for Anxiety Oxycodone/Acetaminophen 10MG/325MG (Percocet 10MG/325MG), 1 TAB PO Q8 PRN for Pain Allergies Coded Allergies: [place] (Verified Allergy, Severe, Difficulty breathing, 11/14/16) Sodium Hypochlorite (Verified Allergy, Unknown, HIVES AND RESPIRATORY DIFFICULTY FROM CLOROX, 11/14/16) Physical Exam Vital Signs Date Time Temp Pulse Resp B/P Pulse Ox O2 Delivery O2 Flow Rate FiO2 11/14/16 20:00 94 25 105/59 94 Room Air 11/14/16 19:00 97 28 139/79 97 Trach Collar 50 11/14/16 17:25 92 11/14/16 17:11 Trach Collar 6.0 50 11/14/16 17:10 97 Trach Collar 6.0 50 Venturi Mask 11/14/16 17:10 97 Trach Collar 50 11/14/16 17:01 36.6 99 28 155/64 97 Room Air Physical Exam GENERAL: Patient is awake, very anxious appearing, appears to be having significant respiratory distress, becomes very dyspneic with any exertion. EYES: The conjunctivae are clear. The pupils are round and reactive. EARS, NOSE, MOUTH AND THROAT: The nose is without any evidence of any deformity. Mucous membranes are moist tongue is midline NECK: The neck is nontender and supple. RESPIRATORY: Shallow respirations noted, pour air movement, severe tachypnea and conversational dyspnea appreciated. CARDIOVASCULAR: Distant and irregular, no definite murmur noted to oscillation. GASTROINTESTINAL: The abdomen is obese but nontender. MUSCULOSKELETAL/EXTREMITIES: There is no evidence of gross deformity full range of motion is noted in the hips and shoulders SKIN: Pedal edema noted bilaterally, right greater than left. Significant erythema noted. Right leg with significant drainage noted from right medial chambers. NEUROLOGIC: Patient is awake alert and oriented x3 Medical Decision & Procedures ER Provider Diagnostic Interpretation: X-ray results as stated below per interpretation by me and the radiologist. CHEST ONE VIEW PORTABLE CLINICAL HISTORY: Sepsis. COMPARISON STUDY: Chest radiograph October 31, 2016. FINDINGS: Tracheostomy tube is noted. The study is compromised by suboptimal penetration related to portable technique and body habitus. Left hemithorax pleural calcifications are noted. There is no pneumothorax. Cardiomegaly is unchanged. There is pulmonary vascular congestion. This is unchanged. There are persistent bibasilar opacities. IMPRESSION: 1. Bibasilar opacities which could reflect atelectasis or consolidation. 2. Stable cardiomegaly with pulmonary vascular congestion. 3. Technically difficult exam, as described above. Electronically signed by: Alexis Luna M.D. 11/14/2016 5:36 PM Dictated Date/Time: 11/14/2016 5:33 PM Laboratory Results Test 11/14/16 17:44 11/14/16 17:47 11/14/16 20:25 Immature Granulocyte % (Auto) 0.3 % White Blood Count 7.09 K/uL (4.8-10.8) Red Blood Count 3.76 M/uL (4.7-6.1) Hemoglobin 11.5 g/dL (14.0-18.0) Hematocrit 34.1 % (42-52) Mean Corpuscular Volume 90.7 fL (80-100) Mean Corpuscular Hemoglobin 30.6 pg (25-34) Mean Corpuscular Hemoglobin Concent 33.7 g/dl (32-36) Platelet Count 148 K/uL (130-400) Mean Platelet Volume 10.8 fL (7.4-10.4) Neutrophils (%) (Auto) 71.4 % Lymphocytes (%) (Auto) 18.6 % Monocytes (%) (Auto) 8.6 % Eosinophils (%) (Auto) 0.8 % Basophils (%) (Auto) 0.3 % Neutrophils # (Auto) 5.06 K/uL (1.4-6.5) Lymphocytes # (Auto) 1.32 K/uL (1.2-3.4) Monocytes # (Auto) 0.61 K/uL (0.11-0.59) Eosinophils # (Auto) 0.06 K/uL (0-0.5) Basophils # (Auto) 0.02 K/uL (0-0.2) Immature Granulocyte # (Auto) 0.02 K/uL (0.00-0.02) Erythrocyte Sedimentation Rate 20 mm/hr (0-14) Prothrombin Time 13.5 SECONDS (9.0-12.0) Prothromb Time International Ratio 1.3 (0.9-1.1) Activated Partial Thromboplast Time 28.7 SECONDS (21.0-31.0) Partial Thromboplastin Ratio 1.1 Venous Blood pH 7.42 (7.36-7.41) Venous Blood Partial Pressure CO2 48 mmHg (38.0-50.0) Venous Blood Partial Pressure O2 79 mmHg Venous Blood HCO3 30 mmol/L Venous Blood Oxygen Saturation 94.9 % Venous Blood Base Excess 4.9 mmol/L Estimated Average Glucose 171 mg/dl Hemoglobin A1c 7.6 % (4.5-5.6) Phosphorus Level 2.8 mg/dl (2.5-4.9) Total Bilirubin 0.8 mg/dl (0.2-1) Aspartate Amino Transf (AST/SGOT) 30 U/L (15-37) Alanine Aminotransferase (ALT/SGPT) 43 U/L (12-78) Alkaline Phosphatase 76 U/L (45-117) Total Creatine Kinase 128 U/L (39-308) Creatine Kinase MB 2.8 ng/ml (0.5-3.6) Creatine Kinase MB Ratio 2.2 (0-3.0) Troponin I 0.018 ng/ml (0-0.045) C-Reactive Protein 1.99 mg/dl (0-0.29) Pro-B-Type Natriuretic Peptide 288 pg/ml (0-900) Total Protein 6.8 gm/dl (6.4-8.2) Albumin 3.4 gm/dl (3.4-5.0) Globulin 3.4 gm/dl (2.5-4.0) Albumin/Globulin Ratio 1.0 (0.9-2) Lipase 103 U/L (73-393) Bedside Lactic Acid Venous 2.35 mmol/L (0.90-1.70) Urine Color YELLOW Urine Appearance CLEAR (CLEAR) Urine pH 6.5 (4.5-7.5) Urine Specific [place] 1.023 (1.000-1.030) Urine Protein NEG (NEG) Urine Glucose (UA) 3+ (NEG) Urine Ketones NEG (NEG) Urine Occult Blood NEG (NEG) Urine Nitrite NEG (NEG) Urine Bilirubin NEG (NEG) Urine Urobilinogen NEG (NEG) Urine Leukocyte Esterase NEG (NEG) Urine WBC (Auto) 1-5 /hpf (0-5) Urine RBC (Auto) 0-4 /hpf (0-4) Urine Hyaline Casts (Auto) 0 /lpf (0-5) Urine Epithelial Cells (Auto) 10-20 /lpf (0-5) Urine Bacteria (Auto) NEG (NEG) Urine Random Creatinine 100.0 mg/dl Urine Random Microalbumin < 5.0 mg/L Laboratory results per my review. Medications Administered Medications (Trade) Dose Ordered Sig/Saige Route Start Time Stop Time Status Last Admin Dose Admin Ceftriaxone Sodium 1 gm 1 gm NOW STAT IV 11/14/16 20:09 11/14/16 20:10 DC 11/14/16 20:29 1 GM Sodium Chloride (Nss 500ml) 500 ml @ 999 mls/hr Q31M STAT IV 11/14/16 20:09 11/14/16 20:39 DC 11/14/16 20:29 999 MLS/HR Albuterol/ Ipratropium (Duoneb) 3 ml NOW STAT INH 11/14/16 20:09 11/14/16 20:10 DC 11/14/16 20:28 3 ML ECG Indication: SOB/dyspnea Rate (beats per minute): 97 Rhythm: atrial fibrillation Findings: PVC, other (poor r-wave progression) Change: no significant change (when compared to EKG from October 28, 2016) ED Course 1707: The patient was evaluated in room A12. A complete history and physical examination were performed. 1922: At this time, I reevaluated the patient and he was feeling a little better. 2008: Ordered Duoneb 3 ml INH, NSS 500 ml @ 999 mls/hr IV, Rocephin Inj 1 gm IV. 2015: At this time, I discussed the patient's case with Dr. Desiree VILLANUEVA and he agreed to accept the patient for further evaluation. Medical Decision Differential diagnosis: Etiologies such as infections, reactive airway disease, pneumonia, pneumothorax , COPD, CHF, cardiac ischemia, pulmonary embolism, musculoskeletal, gastrointestinal, as well as others were entertained. Nursing notes reviewed. Patient's previous electronic medical records reviewed. The patient is a 61-year-old male who has a history of chronic hypoventilatory syndrome as well as other pulmonary comorbidities who presented to the emergency department for an evaluation of shortness of breath. The patient also complains of lower extremity swelling and redness. His exam appears to be consistent with respiratory difficulty rest for a failure as well as cellulitis the right leg. The patient has morbid obesity as well. He has a tracheostomy because of chronic hypoventilatory. I discussed the patient's laboratory and radiographic studies with him. He was treated with IV antibiotics in emergency department. I also discussed his case with the on-call [facility] hospitalist group. They've agreed to evaluate the patient in the emergency apartment for further management and disposition. Consults Time Called: 2010 Consulting Physician: Dr. Desiree VILLANUEVA Returned Call: 2015 At this time, I discussed the patient's case with Dr. Ramírez and he agreed to accept the patient for further evaluation. Impression Primary Impression: Cellulitis of right lower extremity Additional Impressions: Shortness of breath Respiratory distress Scribe Attestation The scribe's documentation has been prepared under my direction and personally reviewed by me in its entirety. I confirm that the note above accurately reflects all work, treatment, procedures, and medical decision making performed by me. Departure Information Dispostion Being Evaluated By Hospitalist Referrals Christofer Hanley DO (PCP) Problem Qualifiers
--- NOTE | 2016-11-14 17:38 | DIAGNOSTIC IMAGING REPORT ---
CHEST ONE VIEW PORTABLE CLINICAL HISTORY: Sepsis. COMPARISON STUDY: Chest radiograph October 31, 2016. FINDINGS: Tracheostomy tube is noted. The study is compromised by suboptimal penetration related to portable technique and body habitus. Left hemithorax pleural calcifications are noted. There is no pneumothorax. Cardiomegaly is unchanged. There is pulmonary vascular congestion. This is unchanged. There are persistent bibasilar opacities. IMPRESSION: 1. Bibasilar opacities which could reflect atelectasis or consolidation. 2. Stable cardiomegaly with pulmonary vascular congestion. 3. Technically difficult exam, as described above. Electronically signed by: Alexis Luna M.D. 11/14/2016 5:36 PM Dictated Date/Time: 11/14/2016 5:33 PM
[2016-11-14 17:58] LABS: VEN BLD GAS O2 SATURATION 94.9 %; VEN BLOOD GAS BASE EXCESS 4.9 mmol/L
[2016-11-14 18:08] LABS: BASO % 0.3 %; BASO ABS # 0.02 K/uL (0-0.2); COMPLETE YES; EOS % 0.8 %; HEMATOCRIT 34.1 % (42-52); IG% 0.3 %; LYMPH % 18.6 %; LYMPH ABS # 1.32 K/uL (1.2-3.4); MEAN CELL VOLUME 90.7 fL (80-100); MEAN CORPUSCULAR HEMOGLOBIN 30.6 pg (25-34); MEAN CORPUSCULAR HGB CONC 33.7 g/dl (32-36); MEAN PLATELET VOLUME 10.8 fL (7.4-10.4); MONO % 8.6 %; NEUT % 71.4 %; PLATELET COUNT 148 K/uL (130-400); RED BLOOD COUNT 3.76 M/uL (4.7-6.1); WHITE BLOOD COUNT 7.09 K/uL (4.8-10.8)
[2016-11-14 18:18] LABS: INR 1.3 (0.9-1.1); PARTIAL THROMBOPLASTIN RATIO 1.1; PROTHROMBIN TIME (PATIENT) 13.5 SECONDS (9.0-12.0)
[2016-11-14 18:27] LABS: ALT/SGPT 43 U/L (12-78); BLOOD UREA NITROGEN 12 mg/dl (7-18); BUN/CREATININE RATIO 13.6 (10-20); CALCIUM 8.3 mg/dl (8.5-10.1); CARBON DIOXIDE 31 mmol/L (21-32); CHLORIDE 98 mmol/L (98-107); GLUCOSE 295 mg/dl (70-99); MAGNESIUM 1.9 mg/dl (1.8-2.4); POTASSIUM 4.8 mmol/L (3.5-5.1); SODIUM 134 mmol/L (136-145)
[2016-11-14 18:30] LABS: ALKALINE PHOSPHATASE 76 U/L (45-117); AST/SGOT 30 U/L (15-37); C-REACTIVE PROTEIN 1.99 mg/dl (0-0.29); CKMB/CK RATIO 2.2 (0-3.0); PHOSPHORUS 2.8 mg/dl (2.5-4.9)
[2016-11-14] MEDS ORDERED: SODIUM CHLORIDE 0.9% 500ML 500 ML IV STA (20:09)
[2016-11-14] MEDS ORDERED: ALBUT/IPRATROP 3MG/0.5MG NEB 3 ML VIAL INH STA (20:09)
[2016-11-14] MEDS ORDERED: CEFTRIAXONE SOD INJ 1 GM ADDVIAL IV STA (20:09)
[2016-11-14] MEDS ORDERED: MAGNESIUM HYDROXIDE SUSP 30 ML UDC PO PRN (21:15)
[2016-11-14] MEDS ORDERED: ALUMINUM/MAGNESIUM/SIMETH (MAALOX MAX) 30 ML UDC PO PRN (21:15)
[2016-11-14] MEDS ORDERED: ALBUTEROL 0.083% NEBU SOLN 3 ML VIAL INH PRN (21:15)
[2016-11-14] MEDS ORDERED: ONDANSETRON INJ 2 MG/ML 2 ML VIAL IV PRN (21:15)
[2016-11-14] MEDS ORDERED: NITROGLYCERIN 0.4 MG SL PER TAB CHARGE SL PRN (21:15)
[2016-11-14 22:00] VITALS: BP 115/59; PULSE 106; TEMP 37.2; O2SAT 92; BMI 66.1
--- NOTE | 2016-11-14 22:20 | HISTORY & PHYSICAL EXAMINATION ---
DATE OF ADMISSION: 11/14/2016 REASON FOR ADMISSION: CHF exacerbation, cellulitis. HISTORY OF PRESENT ILLNESS: This is a 61-year-old male with a complex medical history including morbid obesity, right-sided CHF, chronic lower extremity cellulitis, chronic atrial fibrillation, severe ALLIE, COPD and insulin-dependent diabetes. The patient was recently admitted to the hospital and discharged on 11/06/2016 after being treated for CHF exacerbation. He had described a 30-pound weight gain in the span of a few days prior to his previous admission and presented primarily with shortness of breath. He presents again with shortness of breath and also complains of increasing pain in his right lower extremity with increasing redness and a new shallow ulcerated area. The patient is chronically hypoxic, requiring 6 liters of O2 at bedtime, but has been using his oxygen 24 hours daily over the last 2 days. He denies fever or rigors. He has severe exertional dyspnea and denies chest pain or a productive cough. PAST MEDICAL HISTORY: As follows: 1. Right-sided CHF/cor pulmonale, recent admission for volume overload. 2. COPD. 3. 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 The patient uses CPAP and 6 liters O2 at bedtime. 4. Chronic atrial fibrillation. 5. Insulin-dependent diabetes. He takes a very high dose of insulin including 80 units of Lantus b.i.d. 6. Chronic recurrent cellulitis of the lower extremities. 7. Morbid obesity. 8. CAD. 9. Chronic lower extremity edema. 10. Hyperlipidemia. 11. Chronic hyponatremia. 12. Chronic lactic acidosis. MEDICATIONS: Updated as follows: 1. Albuterol INH q.i.d. for shortness of breath. 2. Lasix 80 mg b.i.d. 3. Multivitamin with minerals. 4. NTG 0.4 mg sublingual p.r.n. 5. Beclomethasone dipropionate nasal daily. 6. Clarinex 5 mg daily. 7. Artificial tears as needed. 8. Aspirin 81 mg daily. 9. Atorvastatin 80 mg daily. 10. Bacitracin applied topically daily to his lower extremities. 11. Pulmicort Respules 2 mL INH b.i.d. 12. Diltiazem 30 mg q.i.d. 13. Dorzolamide 2% b.i.d. 14. Fish oil capsule daily. 15. Guaifenesin 1200 mg b.i.d. 16. Insulin schedule is as follows: Aspart 81 units a.m., 44 units afternoon, 77 units p.m. in addition to Lantus insulin 80 units b.i.d. 17. DuoNeb q. 4 h. 18. Imdur 30 mg daily 19. Xalatan 0.005% one drop both eyes at bedtime. 20. Lisinopril 10 mg daily. 21. Lorazepam 1 mg q.i.d. p.r.n. 22. Magnesium oxide 400 mg b.i.d. 23. Lopressor 25 mg daily. 24. Oxycodone 10/325 q. 8 hours p.r.n. 25. Potassium chloride 60 mEq b.i.d. 26. Xarelto 20 mg daily. 27. Aldactone 25 mg b.i.d. SOCIAL HISTORY: The patient is a former smoker. He has been progressively care dependent and does not currently drink alcohol. He is unemployed. His daughter primarily looks after him at present. FAMILY HISTORY: Positive for CAD and diabetes. REVIEW OF SYSTEMS: GENERAL: He denies fevers or rigors. CARDIOVASCULAR: Denies chest pain, discernible palpitations. He has severe exertional dyspnea and orthopnea. RESPIRATORY: Progressive shortness of breath for over 3 days. No productive cough. GASTROINTESTINAL: No nausea, vomiting, diarrhea or constipation. GENITOURINARY: No dysuria, hesitancy or frequency described. All other systems reviewed and negative aside from what is present in the HPI. PHYSICAL EXAMINATION: VITAL SIGNS: Blood pressure 155/64, heart rate 99, respirations 28, satting 97% on 6 liters O2. The patient is afebrile. GENERAL: He is awake, alert, oriented x3. He is sitting up in bed shirtless and appears fairly comfortable. HEAD AND NECK: Limited due to habitus. There is no thrush. HEART: S1, S2, faint, irregular. No audible murmurs. LUNGS: Clear to auscultation bilaterally. Again, the exam is limited due to his habitus. ABDOMEN: Nontender, soft. EXTREMITIES: There is erythema and chronic skin changes of both extremities, the right side is more erythematous. There is a shallow ulcer on the right chambers. There is no discernible warmth. There is some pain to palpation, right greater than left. NEUROLOGIC: The patient is ambulatory with assistance, maintains his coordination, does not exhibit any focal deficits. SKIN: Cellulitis as per extremity exam of the right lower extremity. LABORATORY DATA: White count 7, hemoglobin 11.5, platelets 148. Sodium 134, potassium 4.8, chloride 98, CO2 of 31, BUN 12, creatinine 0.9, glucose 295, calcium is 8.3. Troponin is 0.018. Lactic acid is 2.35, this is, however, chronic. Most recent HbA1c 7.9. IMAGING: Chest x-ray is limited due to habitus, may be consistent with vascular congestion. EKG, low voltage, no acute ischemic changes, atrial fibrillation. ASSESSMENT AND PLAN: This is a 61-year-old male. He has medical history of CHF with recent admission for volume overload, severe obstructive sleep apnea, morbid obesity, chronic lower extremity cellulitis, and atrial fibrillation. He presents primarily with shortness of breath and what he believes is worsening right lower extremity cellulitis. He will be admitted with the followin. Shortness of breath, likely due to congestive heart failure exacerbation. The patient's daughter reports a 30-pound weight gain over the last week. He will be placed on Lasix at 60 mg q.i.d. and will remain on his Aldactone. We will introduce metolazone 5 mg q.a.m. prior to his first Lasix dose. We have inserted a Ramirez and requested strict I's and O's and daily weights. 2. Regarding his cellulitis, this does currently appear superficial. We have obtained a culture and started him on doxycycline 100 mg b.i.d. 3. Obstructive sleep apnea. The patient will be on CPAP at bedtime and 6 liters O2 continuous at present. We can titrate down as his hypoxia improves with diuresis. 4. Chronic obstructive pulmonary disease. We will continue Pulmicort, DuoNeb and albuterol. He is not currently wheezing to merit steroid use. 5. Insulin-dependent diabetes. He has been placed on his home regimen dosing with supplemental sliding scale in the hospital. 6. Coronary artery disease. No evidence of acute coronary syndrome. He will continue on a statin, beta roberta, and an aspirin. 7. Atrial fibrillation. He is slightly tachycardic, possibly due to his shortness of breath. We will continue his diltiazem, metoprolol and Xarelto. 8. Hypertension and hyperlipidemia. He will continue his home therapy including statin, lisinopril, beta roberta, and multiple diuretics. 9. Upon discussion with the patient's daughter, she feels that he may be better off in a care facility, at least in the short term. This will be discussed with the social media marketer in the a.m. He is a bit selective as to where he wants to go and prefers [facility]. We have informed his daughter that we will accommodate him as possible. Total time for this admit including chart review, discussion with the ER physician and the patient's daughter, review of labs, meds, EKG, imaging, and extensive previous records 45 minutes. The patient is a full code. He is on Xarelto and no further anticoagulation was provided. HOMERO
[2016-11-14] MEDS ORDERED: GLUCAGON FOR INJ 1 MG VIAL SQ PRN (22:30)
[2016-11-14] MEDS ORDERED: GLUCOSE 10 TABS/TUBE PO PRN (22:30)
[2016-11-14] MEDS ORDERED: DEXTROSE 50% 50 ML SYR IV PRN (22:30)
[2016-11-14] MEDS ORDERED: GLUCOSE 40% GEL 15 GM TUBE PO PRN (22:30)
[2016-11-14 23:01] LABS: URINE APPEARANCE CLEAR (CLEAR); URINE BILIRUBIN NEG (NEG); URINE COLOR YELLOW; URINE NITRITE NEG (NEG); URINE PH 6.5 (4.5-7.5); URINE SPECIFIC GRAVITY 1.023 (1.000-1.030); UROBILINOGEN NEG (NEG); ZZUR CULT IF INDIC CLEAN CATCH NO
[2016-11-14 23:03] LABS: MANUAL MICROSCOPIC REQUIRED? NO; REVIEW REQ? NO
[2016-11-14 23:10] VITALS: BP 94/70; PULSE 93; TEMP 36.4; O2SAT 95
[2016-11-14] MEDS: DOXYCYCLINE IV 100 MG in DEXTROSE 5% 100ML 100 ML IV SCH (23:13)
[2016-11-14 23:29] LABS: HEMATOCRIT 35.1 % (42-52); MEAN CELL VOLUME 90.5 fL (80-100); MEAN CORPUSCULAR HEMOGLOBIN 30.4 pg (25-34); MEAN CORPUSCULAR HGB CONC 33.6 g/dl (32-36); MEAN PLATELET VOLUME 10.1 fL (7.4-10.4); PLATELET COUNT 149 K/uL (130-400); RED BLOOD COUNT 3.88 M/uL (4.7-6.1); WHITE BLOOD COUNT 6.84 K/uL (4.8-10.8)
[2016-11-15] VITALS (14 sets, daily range): BP systolic 96–149; BP diastolic 36–95; PULSE 85–118; TEMP 36.4–36.9; O2SAT 92–99; Ht 182.9 cm; Wt 206.5 kg
[2016-11-15] MEDS: ALBUT/IPRATROP 3MG/0.5MG NEB 3 ML VIAL INH SCH ×4 (01:41→20:00)
[2016-11-15 05:51] LABS: HEMATOCRIT 35.2 % (42-52); MEAN CELL VOLUME 91.9 fL (80-100); MEAN CORPUSCULAR HEMOGLOBIN 30.5 pg (25-34); MEAN CORPUSCULAR HGB CONC 33.2 g/dl (32-36); MEAN PLATELET VOLUME 11.2 fL (7.4-10.4); PLATELET COUNT 146 K/uL (130-400); RED BLOOD COUNT 3.83 M/uL (4.7-6.1); WHITE BLOOD COUNT 7.11 K/uL (4.8-10.8)
[2016-11-15 06:36] LABS: BLOOD UREA NITROGEN 11 mg/dl (7-18); BUN/CREATININE RATIO 13.7 (10-20); CALCIUM 8.4 mg/dl (8.5-10.1); CARBON DIOXIDE 30 mmol/L (21-32); CHLORIDE 99 mmol/L (98-107); CREATININE 0.84 mg/dl (0.60-1.40); GLUCOSE 189 mg/dl (70-99); SODIUM 136 mmol/L (136-145)
[2016-11-15 06:36] LABS: ESTIMATED AVERAGE GLUCOSE 171 mg/dl; HA1C FLAG Normal (Normal)
[2016-11-15 07:22] LABS: MAGNESIUM 1.9 mg/dl (1.8-2.4); POTASSIUM 4.2 mmol/L (3.5-5.1)
[2016-11-15] MEDS ORDERED: INSULIN ASPART 100 UNITS/ML 3 ML PEN SQ SCH ×3 (07:30→16:45)
[2016-11-15] MEDS: BUDESONIDE 0.5 MG/2 ML VIAL (PULMICORT) INH SCH ×2 (07:49→20:09)
[2016-11-15] MEDS ORDERED: METOPROLOL TARTRATE 25 MG TAB PO SCH (09:00)
[2016-11-15] MEDS: INSULIN GLARGINE SC SCH ×2 (09:06→22:14)
[2016-11-15] MEDS: FUROSEMIDE INJ 60 MG in SYRINGE 0 ML IV SCH ×3 (09:08→16:35)
[2016-11-15] MEDS: MAGNESIUM OXIDE 400 MG TAB PO SCH ×2 (09:09→22:06)
[2016-11-15] MEDS: SPIRONOLACTONE 25 MG TAB PO SCH ×2 (09:09→16:34)
[2016-11-15] MEDS: METOLAZONE 5 MG TAB PO SCH (09:10)
[2016-11-15] MEDS: GUAIFENESIN 600 MG TABCR PO SCH ×2 (09:13→22:04)
[2016-11-15] MEDS: DILTIAZEM HCL 30 MG TAB PO SCH ×4 (09:13→22:03)
[2016-11-15] MEDS: ATORVASTATIN 40 MG TAB PO SCH (09:14)
[2016-11-15] MEDS: POTASSIUM CHLORIDE 20 MEQ TABCR PO SCH ×2 (09:14→16:35)
[2016-11-15] MEDS: ASPIRIN 81 MG ECTAB PO SCH (09:15)
[2016-11-15] MEDS: LISINOPRIL 10 MG TAB PO SCH (09:15)
[2016-11-15] MEDS: RIVAROXABAN 10 MG TAB PO SCH (09:15)
[2016-11-15] MEDS: ISOSORBIDE MONONITRATE 30 MG TABCR PO SCH (09:16)
[2016-11-15] MEDS: OMEGA-3 (PURIFIED FISH OIL) 1 GM CAP PO SCH (09:16)
[2016-11-15] MEDS: INSULIN ASPART 100 UNITS/ML 3 ML PEN SC SCH ×4 (09:25→22:13)
[2016-11-15] MEDS: DORZOLAMIDE HCL 2% OPH SOLN 10 ML BTL OP SCH ×2 (09:27→22:07)
[2016-11-15] MEDS: LORAZEPAM 1 MG TAB PO PRN ×3 (09:31→22:11)
[2016-11-15] MEDS: BACITRACIN OINT 15 GM TUBE EXT SCH (09:32)
[2016-11-15] MEDS: OXYCODONE/ACETAMINOPHEN 10/325MG TAB PO PRN ×2 (09:32→22:11)
--- NOTE | 2016-11-15 10:38 | Clinical Documentation Query ---
ARPAN De La Rosa : CLINICAL DOCUMENTATION QUERY Patient is a 61 year old male admitted for evaluation and treatment of a "congestive heart failure exacerbation", not otherwise specified. eyewear consultant from 11/18 admission noted "The patient is believed to have preserved left ventricular systolic function, although echocardiographic evaluation is compromised by his body habitus". As able, please specify the likely/suspected type of CHF in your patient. Thank you. In your clinical opinion is this patient being managed for: ( X) Acute on chronic diastolic/preserved EF congestive heart failure ( ) Other explanation of clinical findings (Please Explain) ( ) Unable to determine (Please Define) ( ) Need to Discuss ( ) Not Agree The medical record reflects the following clinical findings, treatment, and risk factors. Clinical Indicators: As above Treatment: Telemetry, Lasix, Aldactone, introduction of Metalazone, I/O, daily weights, Risk Factors: Morbid obesity, cor pulmonale Please clarify and document your clinical opinion in the progress notes and discharge summary. Terms such as "probable", "suspected", "likely", "questionable", "possible", or "still to be ruled out" are acceptable. IF IN AGREEMENT, YOU MUST DOCUMENT ABOVE DIAGNOSTIC STATEMENT IN DAILY PROGRESS NOTES AND DISCHARGE SUMMARY. This document is not part of the patient's record. Thank You, Reji Frausto, REED [phone]
[2016-11-15] MEDS: DOXYCYCLINE IV 100 MG in DEXTROSE 5% 100ML 100 ML IV SCH ×2 (11:33→23:07)
[2016-11-15] MEDS ORDERED: CEFTRIAXONE SOD INJ 1 GM ADDVIAL IV SCH (16:00)
--- NOTE | 2016-11-15 16:10 | Family Medicine Progress Note ---
Progress Note Date of Service Nov 15, 2016. Subjective Pt evaluation today including: conversation w/ patient, physical exam, chart review, lab review, review of studies Pain: Patient complains of pain in his right leg Voiding: no voiding problems, no incontinence Patient is resting comfortably in bed this morning with no acute events since admission yesterday. The patient is still complaining of shortness of breath as well as right leg pain 2/2 his ulcer. He denies any chest pain, nausea, vomiting , fever, chills/ Constitutional: No chills, No fever Respiratory: + dyspnea at rest, + dyspnea on exertion, + shortness of breath , No cough, No wheezing Cardiovascular: + PND, + edema, + orthopnea, No chest pain, No palpitations Abdomen: No nausea, No pain Medications Current Inpatient Medications Medications (Trade) Dose Ordered Sig/Saige Route Start Time Stop Time Status Last Admin Dose Admin Acetaminophen (Tylenol Tab) 650 mg Q4H PRN PO 11/14/16 21:15 12/14/16 21:14 Al Hydrox/Mg Hydrox/Simethicone (Maalox Max Susp) 15 ml Q4H PRN PO 11/14/16 21:15 12/14/16 21:14 Magnesium Hydroxide (Milk Of Magnesia Susp) 30 ml Q12H PRN PO 11/14/16 21:15 12/14/16 21:14 Ondansetron HCl (Zofran Inj) 4 mg Q6H PRN IV 11/14/16 21:15 12/14/16 21:14 Nitroglycerin (Nitrostat Tab) 0.4 mg UD PRN SL 11/14/16 21:15 12/14/16 21:14 Aspirin (Ecotrin Tab) 81 mg DAILY PO 11/15/16 09:00 12/15/16 08:59 11/15/16 09:15 81 MG Atorvastatin Calcium (Lipitor Tab) 80 mg DAILY PO 11/15/16 09:00 12/15/16 08:59 11/15/16 09:14 80 MG Budesonide (Pulmicort Respules 0.5MG/ 2ML Neb Soln) 1 mg BIDR INH 11/15/16 08:00 12/15/16 07:59 11/15/16 07:49 1 MG Diltiazem HCl (Cardizem Tab) 30 mg QID PO 11/15/16 09:00 12/15/16 08:59 11/15/16 13:27 30 MG Dorzolamide HCl (Trusopt 2% Oph Soln) 1 drops BID OP 11/15/16 09:00 12/15/16 08:59 11/15/16 09:27 1 DROPS Fish Oil ([place]-3 (Purified Fish Oil) Cap) 1 gm DAILY PO 11/15/16 09:00 12/15/16 08:59 11/15/16 09:16 1 GM Insulin Aspart (novoLOG ASPART) 44 units QDL SQ 11/15/16 11:30 12/15/16 11:29 11/15/16 11:30 44 UNITS Insulin Aspart (novoLOG ASPART) 77 units QDD SQ 11/15/16 16:45 12/15/16 16:44 Insulin Aspart (novoLOG ASPART) 81 units QDB SQ 11/15/16 07:30 12/15/16 07:29 11/15/16 07:30 81 UNITS Insulin Glargine (Lantus Vial) 80 unit BID SC 11/15/16 09:00 12/15/16 08:59 11/15/16 09:06 80 UNIT Albuterol/ Ipratropium (Duoneb) 3 ml Q6R INH 11/15/16 03:00 12/15/16 02:59 11/15/16 07:49 3 ML Isosorbide Mononitrate (Imdur Ext Rel Tab) 30 mg DAILY PO 11/15/16 09:00 12/15/16 08:59 11/15/16 09:16 30 MG Latanoprost (Xalatan Oph Soln) 1 drops HS OP 11/15/16 21:00 12/15/16 20:59 Lisinopril (Zestril Tab) 10 mg DAILY PO 11/15/16 09:00 12/15/16 08:59 11/15/16 09:15 10 MG Lorazepam (Ativan Tab) 1 mg QID PRN PO 11/14/16 21:15 12/14/16 21:14 11/15/16 09:31 1 MG Magnesium Oxide (Mag-Ox Tab) 400 mg BID PO 11/15/16 09:00 12/15/16 08:59 11/15/16 09:09 400 MG Metoprolol Tartrate (Lopressor Tab) 25 mg DAILY PO 11/15/16 09:00 12/15/16 08:59 11/15/16 09:09 25 MG Oxycodone/ Acetaminophen (Percocet 10-325MG Tab) 1 tab Q8 PRN PO 11/14/16 21:15 11/28/16 21:14 11/15/16 09:32 1 TAB Potassium Chloride (Klor-Con Tab) 60 meq BIDM PO 11/15/16 07:30 12/15/16 07:29 11/15/16 09:14 60 MEQ Rivaroxaban (Xarelto Tab) 20 mg DAILY PO 11/15/16 09:00 12/15/16 08:59 11/15/16 09:15 20 MG Spironolactone (Aldactone Tab) 25 mg BIDM PO 11/15/16 07:30 12/15/16 07:29 11/15/16 09:09 25 MG Bacitracin (Bacitracin Oint) 1 appln DAILY EXT 11/15/16 09:00 12/15/16 08:59 11/15/16 09:32 1 APPLN Guaifenesin (Mucinex Contr Rel Tab) 1,200 mg BID PO 11/15/16 09:00 12/15/16 08:59 11/15/16 09:13 1,200 MG Albuterol Sulfate 2.5 mg 2.5 mg Q4H PRN INH 11/14/16 21:15 12/14/16 21:14 Doxycycline Hyclate/Dextrose (Vibramycin IV/ D5 100ml) 110 ml @ 50 mls/hr Q12H IV 11/14/16 23:00 11/24/16 22:59 11/15/16 11:33 50 MLS/HR Metolazone 5 mg 5 mg QAM PO 11/15/16 09:00 12/15/16 08:59 11/15/16 09:10 5 MG Furosemide/Syringe (Lasix Inj/ Syringe) 6 ml @ 4 mls/min QID IV 11/15/16 09:00 12/15/16 08:59 11/15/16 13:27 4 MLS/MIN Insulin Aspart (novoLOG ASPART) This is a supplement to dos... ACHS SC 11/15/16 07:00 12/15/16 06:59 11/15/16 11:00 2 UNITS Glucose (Glucose 40% Gel) 15-30 GRAMS 15 GRAMS... UD PRN PO 11/14/16 22:30 12/14/16 22:29 Glucose (Glucose Chew Tab) 4-8 Tablets 4 Tabl... UD PRN PO 11/14/16 22:30 12/14/16 22:29 Dextrose (Dextrose 50% 50ML Syringe) 25-50ML OF 50% DW IV FOR... UD PRN IV 11/14/16 22:30 12/14/16 22:29 Glucagon (Glucagon Inj) 1 mg UD PRN SQ 11/14/16 22:30 12/14/16 22:29 Objective Vital Signs Date Time Temp Pulse Resp B/P Pulse Ox O2 Delivery O2 Flow Rate FiO2 11/15/16 12:10 36.6 90 18 96/50 95 Trach Collar 11/15/16 12:00 Trach Collar 10.0 28 11/15/16 08:07 36.7 118 20 136/72 99 11/15/16 08:00 Trach Collar 10.0 28 11/15/16 06:49 111 20 99 Trach Collar 11/15/16 04:00 92 Trach Collar 10.0 11/15/16 03:16 36.7 95 18 97/53 98 Trach Collar 11/15/16 01:41 90 20 97 Trach Collar 11/15/16 01:10 124/80 11/15/16 00:01 92 Trach Collar 10.0 11/14/16 23:10 36.4 93 20 94/70 95 Trach Collar 11/14/16 22:00 37.2 106 24 115/59 92 Trach Collar 10.0 28 11/14/16 21:50 76 22 94 Venturi Mask 50 11/14/16 20:00 94 25 105/59 94 Room Air 11/14/16 19:00 97 28 139/79 97 Trach Collar 50 11/14/16 17:25 92 11/14/16 17:11 Trach Collar 6.0 50 11/14/16 17:10 97 Trach Collar 6.0 50 Venturi Mask 11/14/16 17:10 97 Trach Collar 50 11/14/16 17:01 36.6 99 28 155/64 97 Room Air Physical Exam General Appearance: + mild distress, + obese Neck: trachea midline, + JVD, + pertinent finding (trach in place) Respiratory/Chest: lungs clear, + decreased breath sounds (difficult to assess breath sounds due to body habitus) Cardiovascular: no edema, no gallop, no murmur, + irregularly irregular Abdomen: normal bowel sounds, non tender, soft Extremities: + pertinent finding (right ulcer over right lower leg, very tender to touch, unable to remove dressing due to acute sensitivity while examining, dressing c/d/i) Neurologic/Psychiatric: alert, oriented x 3 Laboratory Results Results Past 24 Hours Test 11/14/16 17:44 11/14/16 17:47 11/14/16 20:25 11/14/16 23:21 Range/Units White Blood Count 7.09 6.84 4.8-10.8 K/uL Red Blood Count 3.76 3.88 4.7-6.1 M/uL Hemoglobin 11.5 11.8 14.0-18.0 g/dL Hematocrit 34.1 35.1 42-52 % Mean Corpuscular Volume 90.7 90.5 80-100 fL Mean Corpuscular Hemoglobin 30.6 30.4 25-34 pg Mean Corpuscular Hemoglobin Concent 33.7 33.6 32-36 g/dl Platelet Count 148 149 130-400 K/uL Mean Platelet Volume 10.8 10.1 7.4-10.4 fL Neutrophils (%) (Auto) 71.4 % Lymphocytes (%) (Auto) 18.6 % Monocytes (%) (Auto) 8.6 % Eosinophils (%) (Auto) 0.8 % Basophils (%) (Auto) 0.3 % Neutrophils # (Auto) 5.06 1.4-6.5 K/uL Lymphocytes # (Auto) 1.32 1.2-3.4 K/uL Monocytes # (Auto) 0.61 0.11-0.59 K/uL Eosinophils # (Auto) 0.06 0-0.5 K/uL Basophils # (Auto) 0.02 0-0.2 K/uL RDW Standard Deviation 47.5 46.9 36.4-46.3 fL RDW Coefficient of Variation 14.4 14.4 11.5-14.5 % Immature Granulocyte % (Auto) 0.3 % Immature Granulocyte # (Auto) 0.02 0.00-0.02 K/uL Erythrocyte Sedimentation Rate 20 0-14 mm/hr Prothrombin Time 13.5 9.0-12.0 SECONDS Prothromb Time International Ratio 1.3 0.9-1.1 Activated Partial Thromboplast Time 28.7 21.0-31.0 SECONDS Partial Thromboplastin Ratio 1.1 Venous Blood pH 7.42 7.36-7.41 Venous Blood Partial Pressure CO2 48 38.0-50.0 mmHg Venous Blood Partial Pressure O2 79 mmHg Venous Blood HCO3 30 mmol/L Venous Blood Oxygen Saturation 94.9 % Venous Blood Base Excess 4.9 mmol/L Sodium Level 134 136-145 mmol/L Potassium Level 4.8 3.5-5.1 mmol/L Chloride Level 98 98-107 mmol/L Carbon Dioxide Level 31 21-32 mmol/L Anion Gap 5.0 3-11 mmol/L Blood Urea Nitrogen 12 7-18 mg/dl Creatinine 0.90 0.60-1.40 mg/dl Estimated GFR () 106.5 Estimated GFR (Non- 91.9 BUN/Creatinine Ratio 13.6 10-20 Random Glucose 295 70-99 mg/dl Estimated Average Glucose 171 mg/dl Hemoglobin A1c 7.6 4.5-5.6 % Calcium Level 8.3 8.5-10.1 mg/dl Phosphorus Level 2.8 2.5-4.9 mg/dl Magnesium Level 1.9 1.8-2.4 mg/dl Total Bilirubin 0.8 0.2-1 mg/dl Aspartate Amino Transf (AST/SGOT) 30 15-37 U/L Alanine Aminotransferase (ALT/SGPT) 43 12-78 U/L Alkaline Phosphatase 76 45-117 U/L Total Creatine Kinase 128 39-308 U/L Creatine Kinase MB 2.8 0.5-3.6 ng/ml Creatine Kinase MB Ratio 2.2 0-3.0 Troponin I 0.018 0-0.045 ng/ml C-Reactive Protein 1.99 0-0.29 mg/dl Pro-B-Type Natriuretic Peptide 288 0-900 pg/ml Total Protein 6.8 6.4-8.2 gm/dl Albumin 3.4 3.4-5.0 gm/dl Globulin 3.4 2.5-4.0 gm/dl Albumin/Globulin Ratio 1.0 0.9-2 Lipase 103 73-393 U/L Bedside Lactic Acid Venous 2.35 0.90-1.70 mmol/L Urine Color YELLOW Urine Appearance CLEAR CLEAR Urine pH 6.5 4.5-7.5 Urine Specific [place] 1.023 1.000-1.030 Urine Protein NEG NEG Urine Glucose (UA) 3+ NEG Urine Ketones NEG NEG Urine Occult Blood NEG NEG Urine Nitrite NEG NEG Urine Bilirubin NEG NEG Urine Urobilinogen NEG NEG Urine Leukocyte Esterase NEG NEG Urine WBC (Auto) 1-5 0-5 /hpf Urine RBC (Auto) 0-4 0-4 /hpf Urine Hyaline Casts (Auto) 0 0-5 /lpf Urine Epithelial Cells (Auto) 10-20 0-5 /lpf Urine Bacteria (Auto) NEG NEG Urine Random Creatinine 100.0 mg/dl Urine Random Microalbumin < 5.0 mg/L Test 11/15/16 05:10 11/15/16 06:56 11/15/16 07:25 11/15/16 11:22 Range/Units White Blood Count 7.11 4.8-10.8 K/uL Red Blood Count 3.83 4.7-6.1 M/uL Hemoglobin 11.7 14.0-18.0 g/dL Hematocrit 35.2 42-52 % Mean Corpuscular Volume 91.9 80-100 fL Mean Corpuscular Hemoglobin 30.5 25-34 pg Mean Corpuscular Hemoglobin Concent 33.2 32-36 g/dl RDW Standard Deviation 48.2 36.4-46.3 fL RDW Coefficient of Variation 14.4 11.5-14.5 % Platelet Count 146 130-400 K/uL Mean Platelet Volume 11.2 7.4-10.4 fL Sodium Level 136 136-145 mmol/L Potassium Level 4.2 3.5-5.1 mmol/L Chloride Level 99 98-107 mmol/L Carbon Dioxide Level 30 21-32 mmol/L Anion Gap 7.0 3-11 mmol/L Blood Urea Nitrogen 11 7-18 mg/dl Creatinine 0.84 0.60-1.40 mg/dl Est Creatinine Clear Calc Drug Dose 176.3 ml/min Estimated GFR () 109.5 Estimated GFR (Non- 94.5 BUN/Creatinine Ratio 13.7 10-20 Random Glucose 189 70-99 mg/dl Calcium Level 8.4 8.5-10.1 mg/dl Magnesium Level 1.9 1.8-2.4 mg/dl Bedside Glucose 204 238 70-99 mg/dl Microbiology Results 11/14/16 Blood Culture, Received Pending 11/14/16 Blood Culture, Received Pending Assessment and Plan Patient is a 61 year old male with a past medical history of right sided CHF, COPD, Severe ALLIE with trach, Chronic Afib, IDDM with high insulin requirement, Chronic cellulitis of lower extremities, Morbid obesity, CAD, Chronic lower extremity edema, hyperlipidemia, and chronic lactic acidosis that presents with an acute on chronic CHF exacerbation with a 10kg weight gain since discharge from [facility] on 11/06/2016 with similar complaints 1) Acute on chronic diastolic congestive heart failure exacerbation - 10kg weight gain since previous admission 11/06/2016 - During that admission was diuresed 21L of fluid - Lasix 60mg IV qid (home dose is 80mg PO BID) - I/O: Net -1.2L - Continue Home Aldactone - 25mg PO BID - Metolazone 5mg q AM - monitor creatinine - Strict I/O and Daily weights - Previous ECHO is 05/19 - EF of 50-55% but technically difficult to assess so unable to accurately visualize right side of heart - CXR: Bibasilar opacities and cardiomegaly that appear unchanged from previous admission 2) Right lower extremity cellulitis - History of chronic recurrent lower extremity cellulitis - Wound Culture - Rocephin 2g IV Daily - Doxycycline 100mg BID - Pain - Percocet 10/325 q8h PRN 3) Obstructive sleep apnea - CPAP at bedtime - 6L O2 continuous 4) COPD - Home Medications: Pulmicort 1mg BID INH, Duoneb 3ml Q6h INH, Albuterol 2puff q4h PRN - Guaifenesin 1200mg BID 5) IDDM - 80 units lantus BID - Insulin Aspart - Sliding Scale Insulin (Last 24 hr: 81 units ODB, 44 units QDL ,77 units QDD 6) Coronary Artery Disease s/p CABG - Aspirin 81mg daily - Lipitor 80mg daily - Isosorbide Mononitrate 30mg daily 7) Atrial Fibrillation - Cardizem 30mg PO QID - Xarelto 20mg Daily 8) Anxiety - Ativan QID PRN 9) Consultations - Cardiology - Wound Care 10) Disposition - PT/OT 11) DVT Prophylaxis - Xarelto 20mg Daily Reviewed: Pt Seen/Exam by Me History Resident Physician Supervision Note: I interviewed and examined the patient. Discussed with Dr. Rowe and agree with findings and plan as documented in the note. Any exceptions or clarifications are listed here: Patient still feeling short of breath but is able to be off of his oxygen right now. Still with erythema of the leg and pain Vitals on telemetry reviewed, in A. fib with rates controlled Morbidly obese, not wearing any clothes, NAD, AAO 3 Irregularly irregular, no audible murmur Lungs with crackles at the bases, otherwise diminished throughout Abdomen morbidly obese with abdominal wall pitting edema, positive bowel sounds , nontender, soft Extremities right lower extremity with diffuse erythema from the distal tibia to the knee with 3 cm superficial wet abrasion with excessive granulation tissue anterior tibia, right leg with 3+ pitting edema, left leg with 1+ pitting edema to the thigh 61-year-old male with multiple medical problems, here 3 lower extremity cellulitis and wound as well as acute on chronic diastolic CHF. -Discussed with cardiology PA and will switch to torsemide for better gut absorption and right-sided heart failure -Continue metolazone -Increased metoprolol tartrate to twice a day from daily home dose -Added on Rocephin for improved strep coverage
[2016-11-15] MEDS: ACETAMINOPHEN 325 MG TAB PO PRN (16:42)
--- NOTE | 2016-11-15 19:54 | DIAGNOSTIC IMAGING REPORT ---
SINGLE VIEW CHEST CLINICAL HISTORY: PICC placement. FINDINGS: An AP, portable, upright chest radiograph is compared to study dated 11/14/2016 and correlated with chest CT dated 05/04/2016. The examination is severely degraded by large body habitus and portable technique. A right PICC line has been placed. The tip projects over the right innominate vein. A tracheostomy is again noted. The patient is status post midline sternotomy. The heart is enlarged and there is atherosclerotic calcification of the thoracic aorta. Pulmonary vascular congestion persists. Bibasilar airspace opacities persist Pleural calcification is again noted throughout the left lung. No large pleural effusion is identified. There is no pneumothorax. The bony thorax appears intact. Degenerative change is noted throughout the thoracic spine. IMPRESSION: 1. A right PICC line has been placed. The tip of the catheter projects over the right innominate vein. 2. Cardiomegaly. Orogastric congestion persists. 3. Bibasilar airspace opacities are unchanged. Electronically signed by: Carlos Rodas M.D. 11/15/2016 7:52 PM Dictated Date/Time: 11/15/2016 7:50 PM
[2016-11-15] MEDS: METOPROLOL TARTRATE 25 MG TAB PO SCH (22:04)
[2016-11-15] MEDS: LATANOPROST 0.005% OP SOLN 2.5 ML BTL OP SCH (22:07)
--- NOTE | 2016-11-15 22:20 | DIAGNOSTIC IMAGING REPORT ---
SINGLE VIEW CHEST CLINICAL HISTORY: PICC repositioning. FINDINGS: An AP, portable, upright chest radiograph is compared to study performed earlier the same day for [address] dated 05/04/2016. The examination is severely degraded by large body habitus and portable technique. A right PICC line has been repositioned. The tip is coiled in the right axillary region. A tracheostomy is again noted. The patient is status post midline sternotomy. The heart is enlarged and there is atherosclerotic calcification of the thoracic aorta. Pulmonary vascular congestion persists. Bibasilar airspace opacities persist Pleural calcification is again noted throughout the left lung. No large pleural effusion is identified. There is no pneumothorax. The bony thorax appears intact. Degenerative change is noted throughout the thoracic spine. IMPRESSION: 1. A right PICC line has been reposition. The tip of the catheter is coiled in the right axillary region. Repositioning is indicated. 2. Cardiomegaly. Pulmonary vascular congestion persists. 3. Bibasilar airspace opacities are unchanged. Electronically signed by: Carlos Rodas M.D. 11/15/2016 10:18 PM Dictated Date/Time: 11/15/2016 10:17 PM
[2016-11-15] MEDS: BUMETANIDE IV 2 MG in SYRINGE 0 ML IV SCH (23:05)
[2016-11-15] MEDS: CEFTRIAXONE SOD INJ 2000 MG in DEXTROSE 5% 50ML IV SCH (23:07)
--- NOTE | 2016-11-15 23:24 | CARDIOLOGY CONSULTATION REPORT ---
DATE OF CONSULTATION: 11/15/2016 REASON FOR CONSULTATION: 1. Cor Pulmonale/Hypervolemia. 2. Questionable CHF. 3. CAD s/p CABG x1 vessel 1997, PCI 2005. HISTORY OF PRESENT ILLNESS: Mr. Tim is a morbidly obese 61-year-old white male with a history of longstanding CAD status post MT in 1997 followed by single vessel CABG (details unknown, surgery at [facility]) followed by stent deployment [id number] (details unknown), history of "CHF" with a normal LV systolic function, [id number] COPD, obstructive sleep apnea status post tracheostomy, insulin requiring type 2 diabetes mellitus, chronic atrial fibrillation (rate controlled and on Xarelto), and a history of chronic leg edema with a chronic right leg cellulitis; who was admitted acutely earlier today complaining of progressive shortness of breath, progressive leg edema (right leg greater than left leg), exacerbation of right lower extremity cellulitis, and a 25-pound non-intentional weight gain over the span of the past 8 days. His normal "dry weight" is approximately 430 pounds, now he is up closer to 460 pounds. The patient was discharged to home on 11/06/2016 on Lasix 80 mg b.i.d. This did not provide much of a diuretic effect from, and his metolazone had been discontinued. These things may have contributed to his weight gain and poor urine output. Additionally, patient denies any significant salt sources in his diet, but occasionally eats soup, pretzels, chips, homemade hoagies, homemade Stromboli, etc. He is taking a lot more sodium that he realizes. Since being admitted, he is feeling much short of breath. Thus far, he has received a dose of oral Zaroxolyn followed by IV Lasix 60 mg q.i.d. The patient denies any chest pain, heaviness, tightness, pressure, or angina pectoris. He denies any neck, jaw, back, or arm pain. His breathing is comfortable when he is sitting still, however, he comes very short of breath with movement. He denies any palpitations, tachy palpitations, syncope or near syncope. MEDICATIONS: 1. Xalatan ophthalmic solution 1 drop in each eye at bedtime. 2. NovoLog 44 units subcutaneous injection daily at lunch time, 77 units q. day at dinner time. 3. Rocephin 1 gram IV daily. 4. Aspirin 81 mg a day. 5. Lipitor 80 mg daily. 6. Diltiazem 30 mg p.o. q.i.d. 7. Trusopt ophthalmic solution 1 drop in both eyes b.i.d. 8. Fish oil capsules 1 gram daily. 9. Lantus 80 units subcutaneous injection b.i.d. 10. Imdur 30 mg daily. 11. Lisinopril 10 mg daily. 12. Mag-Ox 400 mg b.i.d. 13. Lopressor 25 mg daily. 14. Xarelto 20 mg daily. 15. Bacitracin topical. 16. Guaifenesin 1200 mg b.i.d. 17. Zaroxolyn 5 mg q.a.m. 18. Lasix 40 mg IV q.i.d. 19. Pulmicort Respules nebulizer b.i.d. 20. NovoLog 81 units subcutaneous injection q. day at breakfast. 21. KCl 60 mEq b.i.d. 22. Spironolactone 25 mg b.i.d. 23. DuoNeb nebulizers q. 6 hours. 24. Doxycycline 100 mg IV q. 12 hours. 25. Tylenol p.r.n. 26. Milk of magnesia p.r.n. 27. Maalox p.r.n. 28. Zofran p.r.n. 29. Supplemental Ativan 1 mg p.o. q.i.d. p.r.n. for anxiety. 30. Percocet 10/325 one tablet every 8 hours as needed. 31. Albuterol nebulizer q. 4 hours p.r.n. for shortness of breath. ALLERGIES: 1. CHESTNUTS. 2. SODIUM HYPOCHLORITE. PAST MEDICAL HISTORY: 1. CAD status post CABG x1 vessel in 1997. 2. History of MT in 1997. 3. History of PCI to unspecified coronary vessel in 2005. 4. Camhukro-sz-xshqbm COPD. 5. Obstructive sleep apnea status post tracheostomy. 6. Insulin requiring type 2 diabetes mellitus. 7. Morbid obesity (BMI is 6.6 kg per meter squared). 8. History of cor pulmonale. 9. Chronic atrial fibrillation, rate controlled and on Xarelto. 10. History of cataract surgery. 11. History of pilonidal cyst surgery. SOCIAL HISTORY: The patient is , lives with family. He does not use alcohol or tobacco. FAMILY HISTORY: Noncontributory. PHYSICAL EXAMINATION: VITAL SIGNS: Weight 227.7 kg, this is up from 211.1 kg on 11/06/2016. I&O's -5325 mL total today. Pulse is 85 to 90 and irregularly irregular. Temperature is 36.6 degree Celsius. Respiration is 22. Blood pressure is 149/95. SpO2 is 98% with trach collar. GENERAL: Morbidly obese white male in no acute distress. Sitting up at bedside. HEENT: Head is atraumatic, normocephalic. EOMs intact. Sclerae anicteric. Facies symmetric. No perioral cyanosis. Mucous membranes moist. NECK: Without obvious thyromegaly, adenopathy or JVD. Jugulovenous pressure is very difficult to assess due to his body habitus. CHEST AND LUNGS: Breath sounds are present bilaterally. No obvious crackles, rales, or wheezes. Essentially clear. CARDIOVASCULAR: S1 and S2 are irregularly irregular, distant, without obvious murmur, gallop or rub. PMI is nonpalpable. No lifts, heaves, or thrills. No abdominal, aortic or renal bruits. ABDOMEN: Bowel sounds present. EXTREMITIES: With marked edema of the right leg with erythema. Tender to palpation. Dressing is in place. Left lower extremity is with +2 pitting edema to the level of the knee. Telemetry monitoring reveals rate controlled atrial fibrillation. LABORATORY DATA: White blood cell count is 7.11, hemoglobin 11.7 g/dL, hematocrit is 35.2%, platelet count is 146,000. Sodium is 136 mmol/L, potassium 4.2 mmol/L, BUN 11 mg/dL, creatinine is 0.84 mg/dL, random glucose is 147 mg/dL. Serum magnesium level is 1.9 mg/dL. Total CK is 128 units per liter with respect to CK-MB of 2.8 nanograms ng/mL. Troponin I of 0.018 ng/mL. ProBNP is normal at 288 pg/mL. INR is 1.3. Urine specimen appears to be contaminated and has 3+ glucose. ASSESSMENT: 1. Progressive edema, right leg cellulitis, shortness of breath, and hypervolemia in a patient with cor pulmonale. Likely the result of dietary salt in discretion and morbid obesity. 2. Normal pro BNP. 3. Normal left ventricular size and systolic function on echocardiogram 05/07/2016. 4. History of CAD s/p CABG x 1 vessel in 1997. 5. History of percutaneous coronary intervention, unspecified coronary vessel 2005. 6. Diagnoses as mentioned above. 7. No angina pectoris or anginal equivalent symptoms. 8. Chronic atrial fibrillation, rate controlled and on Xarelto. PLAN: 1. The patient with severe obstructive sleep apnea status post tracheostomy, tnruiqoo-me-[id number] COPD and likely cor pulmonale; who presents today with a 25-pound fluid weight gain over the past 8 days likely due to his morbidly obese body habitus, dietary salt intake, and pulmonary pressures being elevated. That does not appear to be classic "CHF." 2. We agree with ongoing diuresis. 3. Covert to IV Bumex, and sending him home on oral Bumex - which is better absorbed in the setting of an edematous gut. 4. Continue Metolazone 5 mg daily before IV Bumex during this hospitalization. We will plan on getting him off of this medication or minimizing his metolazone usage upon discharge. 5. Continue Spironolactone at current doze. 6. Increase Lopressor to 25 mg b.i.d. 7. Continue potassium chloride supplementation. 8. Continue short-acting Diltiazem for the time being. 9. Monitor daily I&O's, body weights. 10. Emphasized the importance of a low sodium diet. 11. Continue Imdur 30 mg daily. 12. Continue [facility] Xarelto. 13. We will continue to follow along while hospitalized. SHIRLENED
[2016-11-16] VITALS (16 sets, daily range): BP systolic 106–135; BP diastolic 63–88; PULSE 63–110; TEMP 36.5–36.7; O2SAT 94–98
[2016-11-16] MEDS: ALBUT/IPRATROP 3MG/0.5MG NEB 3 ML VIAL INH SCH ×4 (02:00→18:55)
[2016-11-16] MEDS: BUDESONIDE 0.5 MG/2 ML VIAL (PULMICORT) INH SCH ×2 (07:10→18:55)
[2016-11-16] MEDS: INSULIN ASPART 100 UNITS/ML 3 ML PEN SC SCH ×4 (08:04→21:00)
[2016-11-16] MEDS: INSULIN GLARGINE SC SCH ×2 (08:06→21:36)
[2016-11-16] MEDS: GUAIFENESIN 600 MG TABCR PO SCH ×2 (08:07→21:28)
[2016-11-16] MEDS: DILTIAZEM HCL 30 MG TAB PO SCH ×4 (08:07→21:27)
[2016-11-16] MEDS: ASPIRIN 81 MG ECTAB PO SCH (08:08)
[2016-11-16] MEDS: METOPROLOL TARTRATE 25 MG TAB PO SCH ×2 (08:08→21:28)
[2016-11-16] MEDS: BUMETANIDE IV 2 MG in SYRINGE 0 ML IV SCH ×2 (08:08→17:17)
[2016-11-16] MEDS: ISOSORBIDE MONONITRATE 30 MG TABCR PO SCH (08:09)
[2016-11-16] MEDS: METOLAZONE 5 MG TAB PO SCH (08:09)
[2016-11-16] MEDS: LISINOPRIL 10 MG TAB PO SCH (08:10)
[2016-11-16] MEDS: RIVAROXABAN 10 MG TAB PO SCH (08:10)
[2016-11-16] MEDS: POTASSIUM CHLORIDE 20 MEQ TABCR PO SCH ×2 (08:10→17:17)
[2016-11-16] MEDS: ATORVASTATIN 40 MG TAB PO SCH (08:10)
[2016-11-16] MEDS: SPIRONOLACTONE 25 MG TAB PO SCH ×2 (08:11→17:16)
[2016-11-16] MEDS: BACITRACIN OINT 15 GM TUBE EXT SCH (08:11)
[2016-11-16] MEDS: OMEGA-3 (PURIFIED FISH OIL) 1 GM CAP PO SCH (08:11)
[2016-11-16] MEDS: DORZOLAMIDE HCL 2% OPH SOLN 10 ML BTL OP SCH ×2 (08:12→21:30)
[2016-11-16 08:22] LABS: MEAN CELL VOLUME 88.2 fL (80-100); MEAN CORPUSCULAR HEMOGLOBIN 30.1 pg (25-34); MEAN CORPUSCULAR HGB CONC 34.2 g/dl (32-36); MEAN PLATELET VOLUME 10.6 fL (7.4-10.4); PLATELET COUNT 152 K/uL (130-400); RED BLOOD COUNT 4.08 M/uL (4.7-6.1); WHITE BLOOD COUNT 7.11 K/uL (4.8-10.8)
[2016-11-16 08:56] LABS: BUN/CREATININE RATIO 14.4 (10-20); CREATININE 0.91 mg/dl (0.60-1.40); POTASSIUM 3.7 mmol/L (3.5-5.1)
[2016-11-16] MEDS: INSULIN ASPART 100 UNITS/ML VIAL SQ SCH ×3 (09:07→17:15)
[2016-11-16] MEDS: MAGNESIUM OXIDE 400 MG TAB PO SCH ×2 (09:07→21:29)
[2016-11-16] MEDS: DOXYCYCLINE IV 100 MG in DEXTROSE 5% 100ML 100 ML IV SCH ×2 (11:54→23:16)
[2016-11-16] MEDS: OXYCODONE/ACETAMINOPHEN 10/325MG TAB PO PRN ×2 (13:39→21:27)
[2016-11-16] MEDS: LORAZEPAM 1 MG TAB PO PRN ×2 (13:40→21:26)
--- NOTE | 2016-11-16 15:59 | Family Medicine Progress Note ---
Progress Note Date of Service Nov 16, 2016. Subjective Pt evaluation today including: conversation w/ patient, physical exam, chart review, lab review, review of studies Pain: Right leg pain, minor pain at rest but acutely tender to touch Voiding: manrique catheter in place Patient rested comfortably overnight with no acute events. He says this morning that his shortness of breath is moderately improved. His right leg is still very tender to touch and he believes that there has been no significant change in redness. Constitutional: No chills, No fever, No sweats Respiratory: + dyspnea at rest, + dyspnea on exertion, + shortness of breath , No cough, No sputum, No wheezing Cardiovascular: No chest pain, No palpitations Abdomen: No diarrhea, No nausea, No pain, No vomiting Male : No dysuria Skin: + problem reported (Erythema on continued tenderness of right lower extremity) Medications Current Inpatient Medications Medications (Trade) Dose Ordered Sig/Saige Route Start Time Stop Time Status Last Admin Dose Admin Acetaminophen (Tylenol Tab) 650 mg Q4H PRN PO 11/14/16 21:15 12/14/16 21:14 11/15/16 16:42 650 MG Al Hydrox/Mg Hydrox/Simethicone (Maalox Max Susp) 15 ml Q4H PRN PO 11/14/16 21:15 12/14/16 21:14 Magnesium Hydroxide (Milk Of Magnesia Susp) 30 ml Q12H PRN PO 11/14/16 21:15 12/14/16 21:14 Ondansetron HCl (Zofran Inj) 4 mg Q6H PRN IV 11/14/16 21:15 12/14/16 21:14 Nitroglycerin (Nitrostat Tab) 0.4 mg UD PRN SL 11/14/16 21:15 12/14/16 21:14 Aspirin (Ecotrin Tab) 81 mg DAILY PO 11/15/16 09:00 12/15/16 08:59 11/16/16 08:08 81 MG Atorvastatin Calcium (Lipitor Tab) 80 mg DAILY PO 11/15/16 09:00 12/15/16 08:59 11/16/16 08:10 80 MG Budesonide (Pulmicort Respules 0.5MG/ 2ML Neb Soln) 1 mg BIDR INH 11/15/16 08:00 12/15/16 07:59 11/16/16 07:10 1 MG Diltiazem HCl (Cardizem Tab) 30 mg QID PO 11/15/16 09:00 12/15/16 08:59 11/16/16 12:00 30 MG Dorzolamide HCl (Trusopt 2% Oph Soln) 1 drops BID OP 11/15/16 09:00 12/15/16 08:59 11/16/16 08:12 1 DROPS Fish Oil (Pamplin-3 (Purified Fish Oil) Cap) 1 gm DAILY PO 11/15/16 09:00 12/15/16 08:59 11/16/16 08:11 1 GM Insulin Glargine (Lantus Vial) 80 unit BID SC 11/15/16 09:00 12/15/16 08:59 11/16/16 08:06 80 UNIT Albuterol/ Ipratropium (Duoneb) 3 ml Q6R INH 11/15/16 03:00 12/15/16 02:59 11/16/16 14:04 3 ML Isosorbide Mononitrate (Imdur Ext Rel Tab) 30 mg DAILY PO 11/15/16 09:00 12/15/16 08:59 11/16/16 08:09 30 MG Latanoprost (Xalatan Oph Soln) 1 drops HS OP 11/15/16 21:00 12/15/16 20:59 11/15/16 22:07 1 DROPS Lisinopril (Zestril Tab) 10 mg DAILY PO 11/15/16 09:00 12/15/16 08:59 11/16/16 08:10 10 MG Lorazepam (Ativan Tab) 1 mg QID PRN PO 11/14/16 21:15 12/14/16 21:14 11/16/16 13:40 1 MG Magnesium Oxide (Mag-Ox Tab) 400 mg BID PO 11/15/16 09:00 12/15/16 08:59 11/16/16 09:07 400 MG Oxycodone/ Acetaminophen (Percocet 10-325MG Tab) 1 tab Q8 PRN PO 11/14/16 21:15 11/28/16 21:14 11/16/16 13:39 1 TAB Potassium Chloride (Klor-Con Tab) 60 meq BIDM PO 11/15/16 07:30 5/14/17 07:29 11/16/16 08:10 60 MEQ Rivaroxaban (Xarelto Tab) 20 mg DAILY PO 11/15/16 09:00 12/15/16 08:59 11/16/16 08:10 20 MG Spironolactone (Aldactone Tab) 25 mg BIDM PO 11/15/16 07:30 12/15/16 07:29 11/16/16 08:11 25 MG Bacitracin (Bacitracin Oint) 1 appln DAILY EXT 11/15/16 09:00 12/15/16 08:59 11/16/16 08:11 1 APPLN Guaifenesin (Mucinex Contr Rel Tab) 1,200 mg BID PO 11/15/16 09:00 12/15/16 08:59 11/16/16 08:07 1,200 MG Albuterol Sulfate 2.5 mg 2.5 mg Q4H PRN INH 11/14/16 21:15 12/14/16 21:14 Doxycycline Hyclate/Dextrose (Vibramycin IV/ D5 100ml) 110 ml @ 50 mls/hr Q12H IV 11/14/16 23:00 11/24/16 22:59 11/16/16 11:54 50 MLS/HR Metolazone (Zaroxolyn Tab) 5 mg QAM PO 11/15/16 09:00 12/15/16 08:59 11/16/16 08:09 5 MG Insulin Aspart (novoLOG ASPART) This is a supplement to dos... ACHS SC 11/15/16 07:00 12/15/16 06:59 11/16/16 11:00 3 UNITS Glucose (Glucose 40% Gel) 15-30 GRAMS 15 GRAMS... UD PRN PO 11/14/16 22:30 12/14/16 22:29 Glucose (Glucose Chew Tab) 4-8 Tablets 4 Tabl... UD PRN PO 11/14/16 22:30 12/14/16 22:29 Dextrose (Dextrose 50% 50ML Syringe) 25-50ML OF 50% DW IV FOR... UD PRN IV 11/14/16 22:30 12/14/16 22:29 Glucagon 1 mg 1 mg UD PRN SQ 11/14/16 22:30 12/14/16 22:29 Ceftriaxone Sodium/Dextrose (Rocephin Inj/D5 50ml) 70 ml @ 140 mls/hr Q24H IV 11/15/16 17:00 11/25/16 16:59 11/15/16 23:07 140 MLS/HR Metoprolol Tartrate 25 mg 25 mg BID PO 11/15/16 21:00 12/15/16 20:59 11/16/16 08:08 25 MG Bumetanide/Syringe (Bumex IV/ Syringe) 8 ml @ 4 mls/min BID@0900,1700 IV 11/15/16 17:00 12/15/16 16:59 11/16/16 08:08 4 MLS/MIN Heparin Sodium (Porcine) (Heparin 10 Unit/ ml 5 ml Flush) 5 ml PRN PRN FLUSH 11/16/16 01:30 12/16/16 01:29 Insulin Aspart (novoLOG ASPART) 81 units QDB SQ 11/16/16 07:30 12/16/16 07:29 11/16/16 09:07 81 UNITS Insulin Aspart (novoLOG ASPART) 44 units QDL SQ 11/16/16 11:30 12/16/16 11:29 11/16/16 11:57 44 UNITS Insulin Aspart (novoLOG ASPART) 77 units QDD SQ 11/16/16 16:45 12/16/16 16:44 Objective Vital Signs Date Time Temp Pulse Resp B/P Pulse Ox O2 Delivery O2 Flow Rate FiO2 11/16/16 14:04 82 20 94 Room Air 11/16/16 12:00 96 Trach Collar 6.0 28 11/16/16 11:11 36.7 88 20 111/77 96 6.0 11/16/16 08:05 63 20 96 Trach Collar 6.0 28 11/16/16 08:00 96 Trach Collar 6.0 28 11/16/16 07:35 36.6 110 20 129/88 96 Nasal Cannula 6.0 11/16/16 04:00 97 Trach Collar 10.0 28 11/16/16 03:20 36.6 92 20 135/72 97 Trach Collar 11/16/16 02:00 96 20 98 Trach Collar 6.0 28 11/16/16 00:01 97 Trach Collar 10.0 28 11/15/16 23:50 36.4 85 20 118/36 96 Trach Collar 11/15/16 20:36 36.9 92 22 112/59 98 Trach Collar 11/15/16 20:10 90 20 97 Trach Collar 11/15/16 20:00 98 Trach Collar 10.0 28 11/15/16 16:00 Trach Collar 10.0 28 11/15/16 15:51 36.6 91 22 149/95 98 Trach Collar Physical Exam General Appearance: + mild distress, + obese Neck: no carotid bruits, + pertinent finding (tracheostomy tube in place) Respiratory/Chest: chest non-tender, + respiratory distress, + pertinent finding (difficult to hear breath sounds due to body habitus) Cardiovascular: no gallop, no murmur, + irregularly irregular Abdomen: normal bowel sounds, non tender, soft Extremities: no calf tenderness, + swelling (2+ edema up to thighs), + pertinent finding (Granulation tissue on right lower leg with associated erythema that appears unchanged from yesterday. Acutely tender to touch. Dressing is c/d/i) Neurologic/Psychiatric: alert, oriented x 3 Laboratory Results Results Past 24 Hours Test 11/15/16 16:20 11/15/16 20:11 11/16/16 06:59 11/16/16 08:13 Range/Units Bedside Glucose 147 164 191 70-99 mg/dl White Blood Count 7.11 4.8-10.8 K/uL Red Blood Count 4.08 4.7-6.1 M/uL Hemoglobin 12.3 14.0-18.0 g/dL Hematocrit 36.0 42-52 % Mean Corpuscular Volume 88.2 80-100 fL Mean Corpuscular Hemoglobin 30.1 25-34 pg Mean Corpuscular Hemoglobin Concent 34.2 32-36 g/dl RDW Standard Deviation 45.6 36.4-46.3 fL RDW Coefficient of Variation 14.2 11.5-14.5 % Platelet Count 152 130-400 K/uL Mean Platelet Volume 10.6 7.4-10.4 fL Sodium Level 134 136-145 mmol/L Potassium Level 3.7 3.5-5.1 mmol/L Chloride Level 94 98-107 mmol/L Carbon Dioxide Level 33 21-32 mmol/L Anion Gap 7.0 3-11 mmol/L Blood Urea Nitrogen 13 7-18 mg/dl Creatinine 0.91 0.60-1.40 mg/dl Est Creatinine Clear Calc Drug Dose 159.7 ml/min Estimated GFR () 105.1 Estimated GFR (Non- 90.6 BUN/Creatinine Ratio 14.4 10-20 Random Glucose 248 70-99 mg/dl Calcium Level 9.0 8.5-10.1 mg/dl Test 11/16/16 11:07 Range/Units Bedside Glucose 266 70-99 mg/dl Microbiology Results 11/15/16 Gram Stain - Final, Resulted 11/15/16 Wound Culture, Resulted Pending Assessment and Plan Patient is a 61 year old male with a past medical history of right sided CHF, COPD, Severe ALLIE with trach, Chronic Afib, IDDM with high insulin requirement, Chronic cellulitis of lower extremities, Morbid obesity, CAD, Chronic lower extremity edema, hyperlipidemia, and chronic lactic acidosis that presents with an acute on chronic CHF exacerbation with a 10kg weight gain since discharge from [facility] on 11/06/2016 with similar complaints 1) Acute on chronic diastolic congestive heart failure exacerbation - 10kg weight gain since previous admission 11/06/2016 - During that admission was diuresed 21L of fluid - Changed Lasix 60mg IV qid to Bumex 2mg BID (home dose is 80mg PO BID) - I/O: Net -10,894 ml - Continue Home Aldactone - 25mg PO BID - Metolazone 5mg q AM - monitor creatinine - Strict I/O and Daily weights - Previous ECHO is 05/19 - EF of 50-55% but technically difficult to assess so unable to accurately visualize right side of heart - CXR: Bibasilar opacities and cardiomegaly that appear unchanged from previous admission - Replacing Potassium and Magnesium to maintain K+>4 and Mg2+>2 2) Right lower extremity cellulitis - History of chronic recurrent lower extremity cellulitis - Wound Culture - Gram stain negative, continue to await culture - Rocephin 2g IV Daily - Doxycycline 100mg BID - Pain - Percocet 10/325 q8h PRN 3) Obstructive sleep apnea - CPAP at bedtime - 6L O2 continuous 4) COPD - Home Medications: Pulmicort 1mg BID INH, Duoneb 3ml Q6h INH, Albuterol 2puff q4h PRN - Guaifenesin 1200mg BID 5) IDDM - 80 units lantus BID - Insulin Aspart - Sliding Scale Insulin (Last 24 hr: 81 units ODB, 44 units QDL , 77 units QDD 6) Coronary Artery Disease s/p CABG - Aspirin 81mg daily - Lipitor 80mg daily - Isosorbide Mononitrate 30mg daily - Metoprolol 25mg BID 7) Atrial Fibrillation - Cardizem 30mg PO QID - Xarelto 20mg Daily - Telemetry - Atrial Fibrillation in the 80s 8) Anxiety - Ativan QID PRN 9) Wound Care - Left chambers ulcer, cluster of open blisters on right medial mid-chambers. Base is clean, tender to touch. - Suggest wound center upon discharge 9) Consultations - Cardiology - Wound Care 10) Disposition - PT/OT 11) DVT Prophylaxis - Xarelto 20mg Daily Reviewed: Pt Seen/Exam by Me History Resident Physician Supervision Note: I interviewed and examined the patient. Discussed with Dr. Rowe and agree with findings and plan as documented in the note. Any exceptions or clarifications are listed here: Patient still feeling short of breath, has already diuresed 12 L of fluid in 1 day. He states he is not able to elevate his leg or even propped up on anything as it creates too much pain in his knees. Vitals on telemetry reviewed, in A. fib with rates controlled Morbidly obese, not wearing any clothes, NAD, AAO 3 Irregularly irregular, no audible murmur Lungs with crackles at the bases, otherwise diminished throughout Abdomen morbidly obese with abdominal wall pitting edema, positive bowel sounds , nontender, soft Extremities right lower extremity with diffuse erythema from the distal tibia to the knee with 3 cm superficial wet abrasion with excessive granulation tissue anterior tibia, right leg with 2-3+ pitting edema, left leg with 1+ pitting edema to the thigh 61-year-old male with multiple medical problems, here 3 lower extremity cellulitis and wound as well as acute on chronic diastolic right-sided CHF. Having significant diuresis but has a lot more fluid to take off still. I suspect he has gut edema which is preventing his oral diuretics from working after he gets discharged. -Continue Bumex IV -Continue metolazone -Continue metoprolol tartrate to twice a day from daily home dose -Continue Rocephin for improved strep coverage and doxycycline for MRSA coverage Documented By: Bell Gasca
[2016-11-16] MEDS: CEFTRIAXONE SOD INJ 2000 MG in DEXTROSE 5% 50ML IV SCH (17:23)
[2016-11-16] MEDS: LATANOPROST 0.005% OP SOLN 2.5 ML BTL OP SCH (21:30)
[2016-11-17] VITALS (14 sets, daily range): BP systolic 109–132; BP diastolic 49–90; PULSE 60–103; TEMP 36.5–36.8; O2SAT 94–98
[2016-11-17] MEDS: ALBUT/IPRATROP 3MG/0.5MG NEB 3 ML VIAL INH SCH ×4 (02:10→19:10)
[2016-11-17] MEDS: LORAZEPAM 1 MG TAB PO PRN ×3 (05:47→23:13)
[2016-11-17] MEDS: OXYCODONE/ACETAMINOPHEN 10/325MG TAB PO PRN ×2 (05:48→21:18)
[2016-11-17 06:20] LABS: HEMATOCRIT 35.2 % (42-52); MEAN CELL VOLUME 89.6 fL (80-100); MEAN CORPUSCULAR HEMOGLOBIN 30.5 pg (25-34); MEAN CORPUSCULAR HGB CONC 34.1 g/dl (32-36); MEAN PLATELET VOLUME 10.8 fL (7.4-10.4); PLATELET COUNT 162 K/uL (130-400); RED BLOOD COUNT 3.93 M/uL (4.7-6.1); WHITE BLOOD COUNT 8.85 K/uL (4.8-10.8)
[2016-11-17 06:50] LABS: BUN/CREATININE RATIO 19.8 (10-20); CALCIUM 9.1 mg/dl (8.5-10.1); CREATININE 0.94 mg/dl (0.60-1.40); POTASSIUM 3.6 mmol/L (3.5-5.1)
[2016-11-17] MEDS: BUDESONIDE 0.5 MG/2 ML VIAL (PULMICORT) INH SCH ×2 (07:03→19:10)
[2016-11-17] MEDS: INSULIN GLARGINE SC SCH ×2 (08:07→21:23)
[2016-11-17] MEDS: INSULIN ASPART 100 UNITS/ML 3 ML PEN SC SCH ×4 (08:09→21:22)
[2016-11-17] MEDS: INSULIN ASPART 100 UNITS/ML VIAL SQ SCH ×3 (08:10→16:49)
[2016-11-17] MEDS: ATORVASTATIN 40 MG TAB PO SCH (08:14)
[2016-11-17] MEDS: OMEGA-3 (PURIFIED FISH OIL) 1 GM CAP PO SCH (08:15)
[2016-11-17] MEDS: ASPIRIN 81 MG ECTAB PO SCH (08:15)
[2016-11-17] MEDS: SPIRONOLACTONE 25 MG TAB PO SCH ×2 (08:15→16:52)
[2016-11-17] MEDS: DILTIAZEM HCL 30 MG TAB PO SCH ×4 (08:15→21:14)
[2016-11-17] MEDS: GUAIFENESIN 600 MG TABCR PO SCH ×2 (08:16→21:15)
[2016-11-17] MEDS: ISOSORBIDE MONONITRATE 30 MG TABCR PO SCH (08:16)
[2016-11-17] MEDS: METOPROLOL TARTRATE 25 MG TAB PO SCH ×2 (08:16→21:14)
[2016-11-17] MEDS: POTASSIUM CHLORIDE 20 MEQ TABCR PO SCH ×2 (08:16→16:53)
[2016-11-17] MEDS: METOLAZONE 5 MG TAB PO SCH (08:17)
[2016-11-17] MEDS: LISINOPRIL 10 MG TAB PO SCH (08:17)
[2016-11-17] MEDS: RIVAROXABAN 10 MG TAB PO SCH (08:17)
[2016-11-17] MEDS: DORZOLAMIDE HCL 2% OPH SOLN 10 ML BTL OP SCH ×2 (08:18→21:14)
[2016-11-17] MEDS: BACITRACIN OINT 15 GM TUBE EXT SCH (08:18)
[2016-11-17] MEDS: MAGNESIUM OXIDE 400 MG TAB PO SCH ×2 (08:18→21:16)
[2016-11-17] MEDS: BUMETANIDE IV 2 MG in SYRINGE 0 ML IV SCH ×2 (09:07→16:54)
[2016-11-17] MEDS: DOXYCYCLINE IV 100 MG in DEXTROSE 5% 100ML 100 ML IV SCH ×2 (11:04→23:13)
--- NOTE | 2016-11-17 15:59 | Family Medicine Progress Note ---
Progress Note Date of Service Nov 17, 2016. Subjective Pt evaluation today including: conversation w/ patient, physical exam, chart review, lab review, review of studies Pain: Right leg pain with no change since yesterday Voiding: manrique catheter in place Patient is resting comfortably in bed this morning with no acute complaints overnight. Says that his shortness of breath is improved but still is short of breath when ambulating to the restroom. He also states that his right leg pain is unchanged from yesterday. Constitutional: No chills, No fever Respiratory: + shortness of breath, No cough, No sputum Cardiovascular: No chest pain, No palpitations Abdomen: No nausea, No pain, No vomiting Male : No dysuria Medications Current Inpatient Medications Medications (Trade) Dose Ordered Sig/Saige Route Start Time Stop Time Status Last Admin Dose Admin Acetaminophen (Tylenol Tab) 650 mg Q4H PRN PO 11/14/16 21:15 12/14/16 21:14 11/15/16 16:42 650 MG Al Hydrox/Mg Hydrox/Simethicone (Maalox Max Susp) 15 ml Q4H PRN PO 11/14/16 21:15 12/14/16 21:14 Magnesium Hydroxide (Milk Of Magnesia Susp) 30 ml Q12H PRN PO 11/14/16 21:15 12/14/16 21:14 Ondansetron HCl (Zofran Inj) 4 mg Q6H PRN IV 11/14/16 21:15 12/14/16 21:14 Nitroglycerin (Nitrostat Tab) 0.4 mg UD PRN SL 11/14/16 21:15 12/14/16 21:14 Aspirin (Ecotrin Tab) 81 mg DAILY PO 11/15/16 09:00 12/15/16 08:59 11/17/16 08:15 81 MG Atorvastatin Calcium (Lipitor Tab) 80 mg DAILY PO 11/15/16 09:00 12/15/16 08:59 11/17/16 08:14 80 MG Budesonide (Pulmicort Respules 0.5MG/ 2ML Neb Soln) 1 mg BIDR INH 11/15/16 08:00 12/15/16 07:59 11/17/16 07:03 1 MG Diltiazem HCl (Cardizem Tab) 30 mg QID PO 11/15/16 09:00 12/15/16 08:59 11/17/16 13:14 30 MG Dorzolamide HCl (Trusopt 2% Oph Soln) 1 drops BID OP 11/15/16 09:00 12/15/16 08:59 11/16/16 21:30 1 DROPS Fish Oil ([place]-3 (Purified Fish Oil) Cap) 1 gm DAILY PO 11/15/16 09:00 12/15/16 08:59 11/17/16 08:15 1 GM Insulin Glargine (Lantus Vial) 80 unit BID SC 11/15/16 09:00 12/15/16 08:59 11/17/16 08:07 80 UNIT Albuterol/ Ipratropium (Duoneb) 3 ml Q6R INH 11/15/16 03:00 12/15/16 02:59 11/17/16 14:03 3 ML Isosorbide Mononitrate (Imdur Ext Rel Tab) 30 mg DAILY PO 11/15/16 09:00 12/15/16 08:59 11/17/16 08:16 30 MG Latanoprost (Xalatan Oph Soln) 1 drops HS OP 11/15/16 21:00 12/15/16 20:59 11/16/16 21:30 1 DROPS Lisinopril (Zestril Tab) 10 mg DAILY PO 11/15/16 09:00 12/15/16 08:59 11/17/16 08:17 10 MG Lorazepam (Ativan Tab) 1 mg QID PRN PO 11/14/16 21:15 12/14/16 21:14 11/17/16 05:47 1 MG Magnesium Oxide (Mag-Ox Tab) 400 mg BID PO 11/15/16 09:00 12/15/16 08:59 11/17/16 08:18 400 MG Oxycodone/ Acetaminophen (Percocet 10-325MG Tab) 1 tab Q8 PRN PO 11/14/16 21:15 11/28/16 21:14 11/17/16 05:48 1 TAB Potassium Chloride (Klor-Con Tab) 60 meq BIDM PO 11/15/16 07:30 12/15/16 07:29 11/17/16 08:16 60 MEQ Rivaroxaban (Xarelto Tab) 20 mg DAILY PO 11/15/16 09:00 12/15/16 08:59 11/17/16 08:17 20 MG Spironolactone (Aldactone Tab) 25 mg BIDM PO 11/15/16 07:30 12/15/16 07:29 11/17/16 08:15 25 MG Bacitracin (Bacitracin Oint) 1 appln DAILY EXT 11/15/16 09:00 12/15/16 08:59 11/17/16 08:18 1 APPLN Guaifenesin (Mucinex Contr Rel Tab) 1,200 mg BID PO 11/15/16 09:00 12/15/16 08:59 11/17/16 08:16 1,200 MG Albuterol Sulfate 2.5 mg 2.5 mg Q4H PRN INH 11/14/16 21:15 12/14/16 21:14 Doxycycline Hyclate/Dextrose (Vibramycin IV/ D5 100ml) 110 ml @ 50 mls/hr Q12H IV 11/14/16 23:00 11/24/16 22:59 11/17/16 11:04 50 MLS/HR Metolazone (Zaroxolyn Tab) 5 mg QAM PO 11/15/16 09:00 12/15/16 08:59 11/17/16 08:17 5 MG Insulin Aspart (novoLOG ASPART) This is a supplement to dos... ACHS SC 11/15/16 07:00 12/15/16 06:59 11/17/16 11:49 3 UNITS Glucose (Glucose 40% Gel) 15-30 GRAMS 15 GRAMS... UD PRN PO 11/14/16 22:30 12/14/16 22:29 Glucose (Glucose Chew Tab) 4-8 Tablets 4 Tabl... UD PRN PO 11/14/16 22:30 12/14/16 22:29 Dextrose (Dextrose 50% 50ML Syringe) 25-50ML OF 50% DW IV FOR... UD PRN IV 11/14/16 22:30 12/14/16 22:29 Glucagon 1 mg 1 mg UD PRN SQ 11/14/16 22:30 12/14/16 22:29 Ceftriaxone Sodium/Dextrose (Rocephin Inj/D5 50ml) 70 ml @ 140 mls/hr Q24H IV 11/15/16:00 11/25/16 16:59 11/16/16 17:23 140 MLS/HR Metoprolol Tartrate 25 mg 25 mg BID PO 11/15/16 21:00 12/15/16 20:59 11/17/16 08:16 25 MG Bumetanide/Syringe (Bumex IV/ Syringe) 8 ml @ 4 mls/min BID@0900,1700 IV 11/15/16 17:00 12/15/16 16:59 11/17/16 09:07 4 MLS/MIN Heparin Sodium (Porcine) (Heparin 10 Unit/ ml 5 ml Flush) 5 ml PRN PRN FLUSH 11/16/16 01:30 12/16/16 01:29 Insulin Aspart (novoLOG ASPART) 81 units QDB SQ 11/16/16 07:30 12/16/16 07:29 11/17/16 08:10 81 UNITS Insulin Aspart (novoLOG ASPART) 44 units QDL SQ 11/16/16 11:30 12/16/16 11:29 11/17/16 11:50 44 UNITS Insulin Aspart (novoLOG ASPART) 77 units QDD SQ 11/16/16 16:45 12/16/16 16:44 11/16/16 17:15 77 UNITS Objective Vital Signs Date Time Temp Pulse Resp B/P Pulse Ox O2 Delivery O2 Flow Rate FiO2 11/17/16 15:02 36.5 86 22 124/62 94 Trach Collar 11/17/16 14:04 95 20 96 Trach Collar 7.0 11/17/16 12:00 Trach Collar 28 11/17/16 11:20 36.6 103 20 130/83 95 Trach Collar 6.0 11/17/16 08:00 Trach Collar 28 11/17/16 07:36 36.7 101 20 132/90 95 Trach Collar 6.0 11/17/16 07:03 90 20 95 Trach Collar 7.0 28 11/17/16 04:00 97 Trach Collar 6.0 28 11/17/16 03:19 36.8 82 18 127/49 97 Trach Collar 11/17/16 02:11 60 20 98 Trach Collar 6.0 28 11/17/16 00:01 94 Trach Collar 6.0 28 11/16/16 23:24 36.5 77 18 130/72 94 Trach Collar 11/16/16 20:00 96 Trach Collar 6.0 28 11/16/16 19:27 36.6 89 23 129/63 96 Trach Collar 11/16/16 18:55 92 20 97 Trach Collar 6.0 28 Physical Exam General Appearance: WD/WN, no apparent distress Respiratory/Chest: chest non-tender, + pertinent finding (difficult to assess lung sounds due to body habitus) Cardiovascular: + irregularly irregular Abdomen: normal bowel sounds, non tender, soft Extremities: + swelling (2+ Pitting in lower extremities up to the thigh), + pertinent finding (Erythema over right lower extremity appears to be improving as well as the granulation involvement) Neurologic/Psychiatric: alert, oriented x 3 Laboratory Results Results Past 24 Hours Test 11/16/16 20:49 11/17/16 05:26 11/17/16 07:07 11/17/16 11:15 Range/Units Bedside Glucose 186 209 252 70-99 mg/dl White Blood Count 8.85 4.8-10.8 K/uL Red Blood Count 3.93 4.7-6.1 M/uL Hemoglobin 12.0 14.0-18.0 g/dL Hematocrit 35.2 42-52 % Mean Corpuscular Volume 89.6 80-100 fL Mean Corpuscular Hemoglobin 30.5 25-34 pg Mean Corpuscular Hemoglobin Concent 34.1 32-36 g/dl RDW Standard Deviation 47.2 36.4-46.3 fL RDW Coefficient of Variation 14.4 11.5-14.5 % Platelet Count 162 130-400 K/uL Mean Platelet Volume 10.8 7.4-10.4 fL Sodium Level 133 136-145 mmol/L Potassium Level 3.6 3.5-5.1 mmol/L Chloride Level 93 98-107 mmol/L Carbon Dioxide Level 31 21-32 mmol/L Anion Gap 9.0 3-11 mmol/L Blood Urea Nitrogen 19 7-18 mg/dl Creatinine 0.94 0.60-1.40 mg/dl Est Creatinine Clear Calc Drug Dose 153.9 ml/min Estimated GFR () 101.0 Estimated GFR (Non- 87.2 BUN/Creatinine Ratio 19.8 10-20 Random Glucose 170 70-99 mg/dl Calcium Level 9.1 8.5-10.1 mg/dl Assessment and Plan Patient is a 61 year old male with a past medical history of right sided CHF, COPD, Severe ALLIE with trach, Chronic Afib, IDDM with high insulin requirement, Chronic cellulitis of lower extremities, Morbid obesity, CAD, Chronic lower extremity edema, hyperlipidemia, and chronic lactic acidosis that presents with an acute on chronic CHF exacerbation with a 10kg weight gain since discharge from [facility] on 11/06/2016 with similar complaints 1) Acute on chronic diastolic congestive heart failure exacerbation - Improving volume status secondary to aggressive diuresis - 10kg weight gain since previous admission 11/06/2016 - During that admission was diuresed 21L of fluid - Changed Lasix 60mg IV qid to Bumex 2mg BID (home dose is 80mg PO BID) - I/O: Net -15,000 ml - Continue Home Aldactone - 25mg PO BID - Metolazone 5mg q AM - monitor creatinine - Strict I/O and Daily weights - Previous ECHO is 05/19 - EF of 50-55% but technically difficult to assess so unable to accurately visualize right side of heart - CXR: Bibasilar opacities and cardiomegaly that appear unchanged from previous admission - Replacing Potassium and Magnesium to maintain K+>4 and Mg2+>2 2) Right lower extremity cellulitis - Improving appearance on Day 3 of Antibiotics - History of chronic recurrent lower extremity cellulitis - Wound Culture - Gram stain negative, continue to await culture - Rocephin 2g IV Daily (Day 3/7) - Doxycycline 100mg BID (Day 3/7) - Pain - Percocet 10/325 q8h PRN - Wound Care Consult - Left chambers ulcer, cluster of open blisters on right medial mid-chambers. Base is clean, tender to touch. - Suggest wound center upon discharge 3) Obstructive sleep apnea - CPAP at bedtime - 6L O2 continuous 4) COPD - Home Medications: Pulmicort 1mg BID INH, Duoneb 3ml Q6h INH, Albuterol 2puff q4h PRN - Guaifenesin 1200mg BID 5) IDDM - 80 units lantus BID - Insulin Aspart - Sliding Scale Insulin 6) Coronary Artery Disease s/p CABG - Stable with no acute EKG changes - Aspirin 81mg daily - Lipitor 80mg daily - Isosorbide Mononitrate 30mg daily - Metoprolol 25mg BID 7) Atrial Fibrillation - Cardizem 30mg PO QID --> Consider increasing dose and changing to long acting due to intermittent rapid afib - Xarelto 20mg Daily - Telemetry - Atrial Fibrillation in the 80s 8) Anxiety - Ativan QID PRN 9) Consultations - Cardiology - Wound Care 10) Disposition - PT/OT 11) DVT Prophylaxis - Xarelto 20mg Daily Reviewed: Pt Seen/Exam by Me History Resident Physician Supervision Note: I interviewed and examined the patient. Discussed with Dr. Rowe and agree with findings and plan as documented in the note. Any exceptions or clarifications are listed here: Continues to briskly diuresis and renal function remains normal. He still feels short of breath but feels a little bit better each day. Vitals on telemetry reviewed, in A. fib with rates at times in the low 100s Morbidly obese, NAD, AAO 3 Irregularly irregular, no audible murmur Lungs with crackles at the bases, otherwise diminished throughout Abdomen morbidly obese with abdominal wall pitting edema, positive bowel sounds , nontender, soft Extremities right lower extremity with improved erythema from the distal tibia to the knee with 3 cm superficial wet abrasion with minimal granulation tissue anterior tibia, right leg with 2+ pitting edema improved from yesterday, left leg with 1+ pitting edema to the thigh 61-year-old male with multiple medical problems, here 3 lower extremity cellulitis and wound as well as acute on chronic diastolic right-sided CHF. Having significant diuresis but has a lot more fluid to take off still. I suspect he has gut edema which is preventing his oral diuretics from working after he gets discharged. Right leg with chronic venous stasis changes and will have some baseline erythema-I suspect he is almost back to his baseline and the wound is improving. -Continue Bumex IV until renal function starts to decline and then we'll switch to by mouth -Continue metolazone daily -Continue metoprolol tartrate to twice a day from daily home dose -Continue Rocephin for improved strep coverage and doxycycline for MRSA coverage , continue daily dressing changes -Suspect he will need to stay at least a few more days to continue to diuresis Documented By: Bell Gasca
[2016-11-17] MEDS: CEFTRIAXONE SOD INJ 2000 MG in DEXTROSE 5% 50ML IV SCH (16:53)
[2016-11-17] MEDS: ACETAMINOPHEN 325 MG TAB PO PRN (19:19)
[2016-11-17] MEDS: LATANOPROST 0.005% OP SOLN 2.5 ML BTL OP SCH (21:14)
[2016-11-18] VITALS (14 sets, daily range): BP systolic 116–160; BP diastolic 59–113; PULSE 86–100; TEMP 36.6–37; O2SAT 95–99
[2016-11-18] MEDS: ALBUT/IPRATROP 3MG/0.5MG NEB 3 ML VIAL INH SCH ×4 (02:00→20:01)
--- NOTE | 2016-11-18 07:17 | Family Medicine Progress Note ---
Progress Note Date of Service Nov 18, 2016. Subjective Pt evaluation today including: conversation w/ patient Patient sitting up in bed with CPAP on trachea. He says that there were no acute overnight events. He believes that his breathing has become slightly easier and that his leg swelling has also reduced. He admits to feeling week, but attributes it to large amounts of fluid being diuresed. He otherwise complains of ongoing back and knee pain, which he explains is the reason he is not participating in therapy and declining rehab on discharge. A long discussion was had on the potential benefits of rehab. Patient keen to speak with customer care representative from [facility] in presence of and daughter in law, to assess therapies and options. Constitutional: No chills, No fever Respiratory: + shortness of breath, + wheezing, No cough Cardiovascular: + edema, No chest pain, No palpitations Abdomen: No nausea, No pain, No vomiting Male : No dysuria Objective Vital Signs Date Time Temp Pulse Resp B/P Pulse Ox O2 Delivery O2 Flow Rate FiO2 11/18/16 04:00 97 Trach Collar 11/18/16 02:45 36.6 94 24 145/66 97 Room Air 11/18/16 02:00 91 20 98 Room Air 11/17/16 23:59 95 Trach Collar 11/17/16 22:55 36.8 78 18 113/52 95 Room Air 11/17/16 20:00 95 Trach Collar 28 11/17/16 19:10 84 18 97 Room Air 11/17/16 18:54 36.6 85 22 109/72 95 Trach Collar 11/17/16 16:00 Trach Collar 28 11/17/16 15:02 36.5 86 22 124/62 94 Trach Collar 11/17/16 14:04 95 20 96 Trach Collar 7.0 11/17/16 12:00 Trach Collar 28 11/17/16 11:20 36.6 103 20 130/83 95 Trach Collar 6.0 11/17/16 08:00 Trach Collar 11/17/16 07:36 36.7 101 20 132/90 95 Trach Collar 6.0 Physical Exam General Appearance: WD/WN, no apparent distress Eyes: normal inspection ENT: hearing grossly normal Neck: + pertinent finding (trach patent. Patient seals when speaking) Respiratory/Chest: no respiratory distress, + decreased breath sounds, + accessory muscle use, + crackles Cardiovascular: regular rate, rhythm Abdomen: non tender, soft Extremities: + calf tenderness, + pedal edema, + swelling Neurologic/Psychiatric: alert, normal mood/affect, oriented x 3 Skin: + pertinent finding (R leg erythematous and swollen - leg kept hanging off the bed) Laboratory Results Results Past 24 Hours Test 11/18/16 06:50 11/18/16 07:20 11/18/16 11:38 11/18/16 16:18 Range/Units Bedside Glucose 155 250 204 70-99 mg/dl White Blood Count 7.44 4.8-10.8 K/uL Red Blood Count 3.69 4.7-6.1 M/uL Hemoglobin 11.4 14.0-18.0 g/dL Hematocrit 32.2 42-52 % Mean Corpuscular Volume 87.3 80-100 fL Mean Corpuscular Hemoglobin 30.9 25-34 pg Mean Corpuscular Hemoglobin Concent 35.4 32-36 g/dl Platelet Count 146 130-400 K/uL Mean Platelet Volume 10.3 7.4-10.4 fL Neutrophils (%) (Auto) 68.7 % Lymphocytes (%) (Auto) 19.6 % Monocytes (%) (Auto) 9.8 % Eosinophils (%) (Auto) 1.2 % Basophils (%) (Auto) 0.3 % Neutrophils # (Auto) 5.11 1.4-6.5 K/uL Lymphocytes # (Auto) 1.46 1.2-3.4 K/uL Monocytes # (Auto) 0.73 0.11-0.59 K/uL Eosinophils # (Auto) 0.09 0-0.5 K/uL Basophils # (Auto) 0.02 0-0.2 K/uL RDW Standard Deviation 44.9 36.4-46.3 fL RDW Coefficient of Variation 14.2 11.5-14.5 % Immature Granulocyte % (Auto) 0.4 % Immature Granulocyte # (Auto) 0.03 0.00-0.02 K/uL Sodium Level 135 136-145 mmol/L Potassium Level 3.3 3.5-5.1 mmol/L Chloride Level 96 98-107 mmol/L Carbon Dioxide Level 31 21-32 mmol/L Anion Gap 8.0 3-11 mmol/L Blood Urea Nitrogen 18 7-18 mg/dl Creatinine 0.82 0.60-1.40 mg/dl Est Creatinine Clear Calc Drug Dose 176.7 ml/min Estimated GFR () 110.6 Estimated GFR (Non- 95.4 BUN/Creatinine Ratio 22.1 10-20 Random Glucose 144 70-99 mg/dl Calcium Level 8.0 8.5-10.1 mg/dl Magnesium Level 1.8 1.8-2.4 mg/dl Test 11/18/16 20:08 Range/Units Bedside Glucose 168 70-99 mg/dl Assessment and Plan 61 year old male with right sided CHF, COPD, severe ALLIE with trachea, chronic rate-controlled afib, IDDM with high insulin requirement, chronic venous insufficiency of lower extremities and chronic lower extremity edema, morbid obesity, CAD, HLD, and chronic lactic acidosis admitted with acute on chronic CHF exacerbation with a 10kg weight gain since discharge from [facility] on 2016 with similar complaints. Acute on chronic diastolic congestive heart failure exacerbation - 10kg weight gain since previous admission 11/06/2016 - During that admission was diuresed 21L of fluid. CXR showed bibasilar opacities and cardiomegaly unchanged from previous admission, previous ECHO on 05/19 showed EF of 50-55% but technically difficult to assess so unable to accurately visualize right side of heart. Home dose Lasix 60mg IV QID possibly not effective 2/2 bowel edema, thus discontinued. Improving volume status secondary to aggressive diuresis. Plans to maintain K+ > 4 and Mg+ > 2. - Continue Bumex 2mg BID, Spironolactone 25mg PO BID, Metolazone 5mg qAM - I/O: Net -21,761 ml - Strict I/O, monitor BMP and daily weights - KCl supplementation increased to 60mEq TID and Mg+ last supplemented 11/18 Right lower extremity cellulitis - History of chronic recurrent lower extremity cellulitis. Wound culture negative. Rocephin discontinued. Wound care consulted -recs appreciated. - Continue Doxycycline 100mg BID (Day 47) - Pain - Percocet 10/325 q8h PRN - Wound center follow up upon discharge Obstructive sleep apnea - Continue CPAP at bedtime, on 6L O2 continuous COPD - Continue home medications: Pulmicort 1mg BID INH, Duoneb 3ml Q6h INH, Albuterol 2puff q4h PRN - Guaifenesin 1200mg BID IDDM - 80 units lantus BID - Insulin Aspart - Sliding Scale Insulin Coronary Artery Disease s/p CABG - Stable with no acute EKG changes - Continue Aspirin 81mg daily, Atorvastatin 80mg daily, Isosorbide Mononitrate 30mg daily, Metoprolol 25mg BID Atrial Fibrillation - Continue Cardizem 30mg PO QID - will consider changing to SR or ER closer to discharge - Xarelto 20mg Daily Anxiety - Ativan QID PRN Disposition - [facility] for rehab , after adequate diuresis - PT/OT evaluations pending DVT Prophylaxis - Not indicated as anticoagulated with Xarelto Continued [facility] stay due to: other Discharge planning: rehab hospital Resident Tracking Resident Involvement: Resident Care Provided Care Provided: Adult Hospital Medicine
[2016-11-18] MEDS: BUDESONIDE 0.5 MG/2 ML VIAL (PULMICORT) INH SCH ×2 (07:46→20:01)
[2016-11-18 07:47] LABS: BASO % 0.3 %; BASO ABS # 0.02 K/uL (0-0.2); COMPLETE YES; EOS % 1.2 %; HEMATOCRIT 32.2 % (42-52); IG% 0.4 %; LYMPH % 19.6 %; LYMPH ABS # 1.46 K/uL (1.2-3.4); MEAN CELL VOLUME 87.3 fL (80-100); MEAN CORPUSCULAR HEMOGLOBIN 30.9 pg (25-34); MEAN CORPUSCULAR HGB CONC 35.4 g/dl (32-36); MEAN PLATELET VOLUME 10.3 fL (7.4-10.4); MONO % 9.8 %; NEUT % 68.7 %; PLATELET COUNT 146 K/uL (130-400); RED BLOOD COUNT 3.69 M/uL (4.7-6.1); WHITE BLOOD COUNT 7.44 K/uL (4.8-10.8)
[2016-11-18] MEDS: INSULIN ASPART 100 UNITS/ML 3 ML PEN SC SCH ×4 (07:58→22:20)
[2016-11-18 08:09] LABS: BUN/CREATININE RATIO 22.1 (10-20); CREATININE 0.82 mg/dl (0.60-1.40); MAGNESIUM 1.8 mg/dl (1.8-2.4); POTASSIUM 3.3 mmol/L (3.5-5.1)
[2016-11-18] MEDS: LORAZEPAM 1 MG TAB PO PRN ×3 (08:52→22:07)
[2016-11-18] MEDS: OXYCODONE/ACETAMINOPHEN 10/325MG TAB PO PRN ×2 (08:52→20:13)
[2016-11-18] MEDS: BUMETANIDE IV 2 MG in SYRINGE 0 ML IV SCH ×2 (08:52→16:48)
[2016-11-18] MEDS: SPIRONOLACTONE 25 MG TAB PO SCH ×2 (08:53→16:46)
[2016-11-18] MEDS: OMEGA-3 (PURIFIED FISH OIL) 1 GM CAP PO SCH (08:53)
[2016-11-18] MEDS: LISINOPRIL 10 MG TAB PO SCH (08:53)
[2016-11-18] MEDS: METOPROLOL TARTRATE 25 MG TAB PO SCH ×2 (08:53→19:56)
[2016-11-18] MEDS: ASPIRIN 81 MG ECTAB PO SCH (08:53)
[2016-11-18] MEDS: MAGNESIUM OXIDE 400 MG TAB PO SCH ×2 (08:54→19:57)
[2016-11-18] MEDS: ISOSORBIDE MONONITRATE 30 MG TABCR PO SCH (08:54)
[2016-11-18] MEDS: DILTIAZEM HCL 30 MG TAB PO SCH ×4 (08:54→19:55)
[2016-11-18] MEDS: METOLAZONE 5 MG TAB PO SCH (08:54)
[2016-11-18] MEDS: GUAIFENESIN 600 MG TABCR PO SCH ×2 (08:54→19:56)
[2016-11-18] MEDS: DORZOLAMIDE HCL 2% OPH SOLN 10 ML BTL OP SCH ×2 (08:55→19:55)
[2016-11-18] MEDS: RIVAROXABAN 10 MG TAB PO SCH (08:55)
[2016-11-18] MEDS: ATORVASTATIN 40 MG TAB PO SCH (08:55)
[2016-11-18] MEDS: BACITRACIN OINT 15 GM TUBE EXT SCH (08:55)
[2016-11-18] MEDS: POTASSIUM CHLORIDE 20 MEQ TABCR PO SCH ×2 (08:56→16:45)
[2016-11-18] MEDS: INSULIN ASPART 100 UNITS/ML VIAL SQ SCH ×3 (09:04→16:48)
[2016-11-18] MEDS: INSULIN GLARGINE SC SCH ×2 (09:05→20:08)
--- NOTE | 2016-11-18 09:47 | CARDIOLOGY PROGRESS NOTE ---
DATE: 11/18/2016 SUBJECTIVE: This morning, Mr. Tim claims to be feeling somewhat better. He still has an element of dyspnea, especially with exertion back and forth to the commode, but his breathing is improved. He states he has minimal pain in his right lower extremity. The swelling appears to be stable. PHYSICAL EXAMINATION: GENERAL: He was alert and oriented. His mood and affect appeared normal. He answered all questions appropriately. VITAL SIGNS: Include blood pressure 144/113 with a pulse of 98. LUNGS: Auscultation of his lungs revealed occasional upper airway sounds and some mild expiratory wheezing but minimal crackles. CARDIAC: Revealed distant heart sounds but a regular rhythm. EXTREMITIES: Evaluation of his right lower extremity revealed some stasis changes with the bandage and some moderate peripheral edema. LABORATORY STUDIES: Today included a sodium of 135, potassium of 3.3, BUN was 18, and creatinine was 0.82. Review of the patient's records suggest a diuresis yesterday of over 4 liters. ASSESSMENT AND PLAN: 1. Cor pulmonale. The patient has evidence of right-sided vascular congestion including significant peripheral edema. This appears to be improved since admission with aggressive use of diuretics. It is very likely that the patient's prior diuretic dose was not adequate for his level of sodium intake at home. It was titrated to his hospital sodium intake and it did effect a mild diuresis on a daily basis while an inpatient previously. At this point; however, it seems obvious that he is likely eats more sodium at home and is unable to measures his weight due to his morbid obesity and likely developed an element of gut edema with increasing water retention. At this point, it would seem reasonable to attempt transition to an oral regimen of Bumex. It is unlikely that he will require significant doses of metoprolol was on an outpatient basis as he seems to respond quite well to both intravenous diuretics and likely bumetanide in particular. I think if we can control his sodium intake at home and perhaps find a better way to monitor his weight and volume retention prior to reaching a clinical situation, maybe he can avoid additional hospitalizations. 2. Coronary artery disease, history of both coronary bypass grafting as well as percutaneous intervention, no current symptoms to suggest ongoing ischemia or angina. The patient is on appropriate secondary regimen. 3. Atrial fibrillation, permanent. Overall, rate control seems adequate. Given his level of activity at this point, I would suggest transition eating his q.i.d. diltiazem dose to once daily dose of 180 mg.
--- NOTE | 2016-11-18 10:24 | Pharmacy Progress Note ---
Automatic IV to PO Conversion Date of Service: Nov 18, 2016. [facility] has identified patient as an appropriate candidate for automatic intravenous to oral conversion. Eligible medication: Doxycycline IV every 12 hours. Subjective The patient is a 61 year old male admitted on Nov 14, 2016 at 21:04 for Chf Exacerbation, Sob. Objective Vital Signs: Vital Signs Past 12 Hours Date Time Temp Pulse Resp B/P Pulse Ox O2 Delivery O2 Flow Rate FiO2 11/18/16 08:00 Room Air Trach Collar 11/18/16 07:47 95 14 97 Room Air 11/18/16 07:39 36.9 98 20 144/113 99 Trach Collar 6.0 11/18/16 04:00 97 Trach Collar 28 11/18/16 02:45 36.6 94 24 145/66 97 Room Air 11/18/16 02:00 91 20 98 Room Air 11/17/16 23:59 95 Trach Collar 28 11/17/16 22:55 36.8 78 18 113/52 95 Room Air White Blood Count: Test 11/18/16 07:20 White Blood Count 7.44 K/uL (4.8-10.8) Red Blood Count 3.69 M/uL (4.7-6.1) Hemoglobin 11.4 g/dL (14.0-18.0) Hematocrit 32.2 % (42-52) Mean Corpuscular Volume 87.3 fL (80-100) Mean Corpuscular Hemoglobin 30.9 pg (25-34) Mean Corpuscular Hemoglobin Concent 35.4 g/dl (32-36) Platelet Count 146 K/uL (130-400) Mean Platelet Volume 10.3 fL (7.4-10.4) Neutrophils (%) (Auto) 68.7 % Lymphocytes (%) (Auto) 19.6 % Monocytes (%) (Auto) 9.8 % Eosinophils (%) (Auto) 1.2 % Basophils (%) (Auto) 0.3 % Neutrophils # (Auto) 5.11 K/uL (1.4-6.5) Lymphocytes # (Auto) 1.46 K/uL (1.2-3.4) Monocytes # (Auto) 0.73 K/uL (0.11-0.59) Eosinophils # (Auto) 0.09 K/uL (0-0.5) Basophils # (Auto) 0.02 K/uL (0-0.2) Height (Feet): 6 Height (Inches): 0.00 Weight (Kilograms): 213.800 Type of Diet: Diabetic Assessment & Plan The Infectious Disease Society and the [place] [employer] recommend conversion to oral therapy once a patient is determined to be clinically stable and are able to tolerate oral medications. Patient identified as appropriate candidate for IV to PO conversion of Doxycycline 100mg Q12H based on the following criteria: * Afebrile for greater than or equal to 12 hours * Receiving oral/enteral medications and/or tolerating oral/enteral diet for greater than 24 hours * Improvement in clinical condition evidenced by .. WBC count of 7.44 10^3/uL and trending downward, resolution of signs/symptoms of illness * Hemodynamically stable or * Receiving oral medications and/or tolerating oral diet for greater than 24 hours * Patient does not meet criteria for use of intravenous proton pump inhibitors ( negative for GI bleed, hypersecretory conditions, GERD associated with erosive esophagitis & unable to take PO) Automatic conversion to: Doxycycline 100mg PO every 12 hours
[2016-11-18] MEDS: DOXYCYCLINE HYCLATE 100 MG CAP PO SCH ×2 (11:52→22:20)
[2016-11-18] MEDS: ACETAMINOPHEN 325 MG TAB PO PRN (16:53)
[2016-11-18] MEDS: LATANOPROST 0.005% OP SOLN 2.5 ML BTL OP SCH (20:11)
[2016-11-18] MEDS ORDERED: MAGNESIUM SULFATE 1GM / D5W 1 GM in PREMIXED IN D5W 100 ML IV STA (21:40)
[2016-11-18] MEDS ORDERED: MAGNESIUM OXIDE 400 MG TAB PO STA (22:41)
[2016-11-19] VITALS (9 sets, daily range): BP systolic 104–130; BP diastolic 41–72; PULSE 73–99; TEMP 36–36.6; O2SAT 96–100
[2016-11-19] MEDS: ALBUT/IPRATROP 3MG/0.5MG NEB 3 ML VIAL INH SCH ×4 (01:41→19:35)
--- NOTE | 2016-11-19 07:30 | Family Medicine Progress Note ---
Progress Note Date of Service Nov 19, 2016. Subjective Pt evaluation today including: conversation w/ patient, conversation w/ family Patient sitting up in bed with trach mask. He denies acute overnight events. He believes that his breathing continues to improve, but continues to feel he has significant more amount of fluid to be removed. A long discussion was had on the importance of low salt diet to prevent recurrence of water retention, but patient adamantly denies salt intake in diet. A community health representative from [facility] was arranged to come speak to patient and family regarding the benefits of step down care and therapies. Constitutional: No chills, No fever Respiratory: + shortness of breath, No cough, No wheezing Cardiovascular: + edema, No chest pain, No claudication, No palpitations Abdomen: No nausea, No pain, No vomiting Objective Vital Signs Date Time Temp Pulse Resp B/P Pulse Ox O2 Delivery O2 Flow Rate FiO2 11/19/16 07:06 36.6 99 20 117/64 96 Room Air 11/19/16 01:41 88 18 98 Room Air 11/19/16 00:11 36.0 76 20 104/41 100 Room Air 11/19/16 00:00 100 Trach Collar 28 11/18/16 20:01 96 18 96 Trach Collar 28 11/18/16 18:59 94 18 119/74 97 Trach Collar 6.0 11/18/16 18:45 97 Humidified Air 6.0 Trach Collar 11/18/16 18:01 36.7 86 20 98 11/18/16 16:00 Room Air Trach Collar 11/18/16 15:02 36.7 86 20 116/59 98 Trach Collar 11/18/16 14:08 96 14 96 Room Air 11/18/16 12:03 100 95 11/18/16 12:00 Room Air Trach Collar 11/18/16 11:42 37.0 93 20 132/71 95 Trach Collar 11/18/16 11:22 95 14 97 Room Air 11/18/16 08:00 Room Air Trach Collar 11/18/16 07:47 95 14 97 Room Air 11/18/16 07:39 36.9 98 20 144/113 99 Trach Collar 6.0 Physical Exam General Appearance: WD/WN, no apparent distress, + obese (morbid) Respiratory/Chest: no respiratory distress, no accessory muscle use, + decreased breath sounds, + crackles Cardiovascular: regular rate, rhythm Abdomen: non tender, soft Extremities: + calf tenderness, + pedal edema, + swelling Neurologic/Psychiatric: alert, normal mood/affect, oriented x 3 Skin: warm/dry, + pertinent finding (mild improvement of R LL erythema) Laboratory Results Results Past 24 Hours Test 11/18/16 20:08 11/18/16 22:04 11/19/16 07:26 11/19/16 07:33 Range/Units Bedside Glucose 168 189 201 70-99 mg/dl White Blood Count 9.05 4.8-10.8 K/uL Red Blood Count 4.02 4.7-6.1 M/uL Hemoglobin 12.3 14.0-18.0 g/dL Hematocrit 35.3 42-52 % Mean Corpuscular Volume 87.8 80-100 fL Mean Corpuscular Hemoglobin 30.6 25-34 pg Mean Corpuscular Hemoglobin Concent 34.8 32-36 g/dl Platelet Count 178 130-400 K/uL Mean Platelet Volume 10.8 7.4-10.4 fL Neutrophils (%) (Auto) 68.0 % Lymphocytes (%) (Auto) 13.5 % Monocytes (%) (Auto) 16.7 % Eosinophils (%) (Auto) 1.2 % Basophils (%) (Auto) 0.2 % Neutrophils # (Auto) 6.15 1.4-6.5 K/uL Lymphocytes # (Auto) 1.22 1.2-3.4 K/uL Monocytes # (Auto) 1.51 0.11-0.59 K/uL Eosinophils # (Auto) 0.11 0-0.5 K/uL Basophils # (Auto) 0.02 0-0.2 K/uL RDW Standard Deviation 45.7 36.4-46.3 fL RDW Coefficient of Variation 14.3 11.5-14.5 % Immature Granulocyte % (Auto) 0.4 % Immature Granulocyte # (Auto) 0.04 0.00-0.02 K/uL Sodium Level 127 136-145 mmol/L Potassium Level 3.5 3.5-5.1 mmol/L Chloride Level 89 98-107 mmol/L Carbon Dioxide Level 30 21-32 mmol/L Anion Gap 8.0 3-11 mmol/L Blood Urea Nitrogen 24 7-18 mg/dl Creatinine 0.89 0.60-1.40 mg/dl Est Creatinine Clear Calc Drug Dose 162.3 ml/min Estimated GFR () 107.0 Estimated GFR (Non- 92.3 BUN/Creatinine Ratio 26.6 10-20 Random Glucose 200 70-99 mg/dl Calcium Level 8.8 8.5-10.1 mg/dl Phosphorus Level 3.3 2.5-4.9 mg/dl Magnesium Level 2.0 1.8-2.4 mg/dl Test 11/19/16 09:32 11/19/16 11:14 11/19/16 12:50 11/19/16 16:25 Range/Units Sodium Level 126 136-145 mmol/L Potassium Level 3.4 3.5-5.1 mmol/L Chloride Level 87 98-107 mmol/L Carbon Dioxide Level 27 21-32 mmol/L Anion Gap 12.0 3-11 mmol/L Blood Urea Nitrogen 24 7-18 mg/dl Creatinine 1.00 0.60-1.40 mg/dl Est Creatinine Clear Calc Drug Dose 144.4 ml/min Estimated GFR () 93.7 Estimated GFR (Non- 80.9 BUN/Creatinine Ratio 23.5 10-20 Random Glucose 341 70-99 mg/dl Calcium Level 8.9 8.5-10.1 mg/dl Beta-Hydroxybutyric Acid 2.60 0.2-2.81 mg/dL Bedside Glucose 294 178 70-99 mg/dl Urine Color BRAD Urine Appearance CLEAR CLEAR Urine pH 8.0 4.5-7.5 Urine Specific [place] 1.011 1.000-1.030 Urine Protein NEG NEG Urine Glucose (UA) NEG NEG Urine Ketones NEG NEG Urine Occult Blood 3+ NEG Urine Nitrite NEG NEG Urine Bilirubin NEG NEG Urine Urobilinogen NEG NEG Urine Leukocyte Esterase TRACE NEG Urine WBC (Auto) 1-5 0-5 /hpf Urine RBC (Auto) >30 0-4 /hpf Urine Hyaline Casts (Auto) 5-10 0-5 /lpf Urine Epithelial Cells (Auto) 5-10 0-5 /lpf Urine Bacteria (Auto) NEG NEG Assessment and Plan 61 year old male with right sided CHF, COPD, severe ALLIE with trachea, chronic rate-controlled afib, IDDM with high insulin requirement, chronic venous insufficiency of lower extremities and chronic lower extremity edema, morbid obesity, CAD, HLD, and chronic lactic acidosis admitted with acute on chronic CHF exacerbation with a 10kg weight gain since discharge from [facility] on 2016 with similar complaints. Acute on chronic diastolic congestive heart failure exacerbation - 10kg weight gain since previous admission 11/06/2016 - During that admission was diuresed 21L of fluid. CXR showed bibasilar opacities and cardiomegaly unchanged from previous admission, previous ECHO on 05/19 showed EF of 50-55% but technically difficult to assess so unable to accurately visualize right side of heart. Home dose Lasix 60mg IV QID possibly not effective 2/2 bowel edema, thus discontinued. Improving volume status secondary to aggressive diuresis. Plans to maintain K+ > 4 and Mg+ > 2. - Continue Spironolactone 25mg PO BID, Metolazone 5mg qAM, and reduced PO Bumex 1mg qAM - I/O: Net -24.5L - Strict I/O, monitor BMP and daily weights - KCl supplementation increased to 60mEq TID and Mg+ last supplemented 11/18 Right lower extremity cellulitis - History of chronic recurrent lower extremity cellulitis. Wound culture negative. Rocephin discontinued. Wound care consulted -recs appreciated. - Continue Doxycycline 100mg BID (Day 5/7) - Pain - Percocet 10/325 q8h PRN - Wound center follow up upon discharge Obstructive sleep apnea - Continue CPAP at bedtime, on 6L O2 continuous COPD - Continue home medications: Pulmicort 1mg BID INH, Duoneb 3ml Q6h INH, Albuterol 2puff q4h PRN - Guaifenesin 1200mg BID IDDM - 80 units lantus BID - Insulin Aspart - Sliding Scale Insulin Coronary Artery Disease s/p CABG - Stable with no acute EKG changes - Continue Aspirin 81mg daily, Atorvastatin 80mg daily, Isosorbide Mononitrate 30mg daily, Metoprolol 25mg BID Atrial Fibrillation - Continue Cardizem 30mg PO QID - Will switch to PO Cardizem 120mg daily tomorrow - Xarelto 20mg Daily Anxiety - Ativan QID PRN Disposition - [facility] for rehab, after adequate diuresis - PT/OT evaluations pending DVT Prophylaxis - Not indicated as anticoagulated with Xarelto Resident Physician Supervision Note: I interviewed and examined the patient. Discussed with Dr. Jesse and agree with findings and plan as documented in the note. Any exceptions or clarifications are listed here: None Documented By: César Lin breathign continues to improve. swelling down some. legs feeling better. ros otherwise negative except for as above. says multiple times that he doesn't want to leave and then come back 10 days later. willing to go to [facility]. vitals noted nad breathing unlabored abd protuberant, LE edema does appear somewhat improved and very mild erythema R leg ongoing improvement labs noted acute on chronic diastolic CHF - change to 2mg po bumex daily - suspect arterial circulation starting to be dry given rise in BUN/Cr, also hyponatremia , while not overly common, can show salt wasting from diuresis. explained to pt that remainder of fluid mostly in venous compartment - still appears edematous, but with arterial side of circulation starting to look dry, risks start to outweigh benefits for ongoing aggressive diuresis. LE edema - from above and venous stasis hyponatremia, prerenal azotemia - see above chronic respiratory failure - above + OHS + COPD declines allowing us to remove manrique today. improving. for [facility] @ discharge Continued [facility] stay due to: abnormal vital signs Discharge planning: rehab hospital Resident Tracking Resident Involvement: Resident Care Provided Care Provided: Adult Hospital Medicine
[2016-11-19] MEDS: BUDESONIDE 0.5 MG/2 ML VIAL (PULMICORT) INH SCH ×2 (07:35→19:35)
[2016-11-19 07:46] LABS: BASO % 0.2 %; BASO ABS # 0.02 K/uL (0-0.2); COMPLETE YES; EOS % 1.2 %; HEMATOCRIT 35.3 % (42-52); IG% 0.4 %; LYMPH % 13.5 %; LYMPH ABS # 1.22 K/uL (1.2-3.4); MEAN CELL VOLUME 87.8 fL (80-100); MEAN CORPUSCULAR HEMOGLOBIN 30.6 pg (25-34); MEAN CORPUSCULAR HGB CONC 34.8 g/dl (32-36); MEAN PLATELET VOLUME 10.8 fL (7.4-10.4); MONO % 16.7 %; PLATELET COUNT 178 K/uL (130-400); RED BLOOD COUNT 4.02 M/uL (4.7-6.1); WHITE BLOOD COUNT 9.05 K/uL (4.8-10.8)
[2016-11-19 08:19] LABS: BUN/CREATININE RATIO 26.6 (10-20); CALCIUM 8.8 mg/dl (8.5-10.1); CREATININE 0.89 mg/dl (0.60-1.40); PHOSPHORUS 3.3 mg/dl (2.5-4.9); POTASSIUM 3.5 mmol/L (3.5-5.1)
[2016-11-19] MEDS: ATORVASTATIN 40 MG TAB PO SCH (08:35)
[2016-11-19] MEDS: ASPIRIN 81 MG ECTAB PO SCH (08:35)
[2016-11-19] MEDS: POTASSIUM CHLORIDE 20 MEQ TABCR PO SCH ×3 (08:36→17:38)
[2016-11-19] MEDS: METOPROLOL TARTRATE 25 MG TAB PO SCH ×2 (08:36→19:56)
[2016-11-19] MEDS: DILTIAZEM HCL 30 MG TAB PO SCH ×4 (08:36→19:55)
[2016-11-19] MEDS: GUAIFENESIN 600 MG TABCR PO SCH ×2 (08:36→19:56)
[2016-11-19] MEDS: LISINOPRIL 10 MG TAB PO SCH (08:37)
[2016-11-19] MEDS: RIVAROXABAN 10 MG TAB PO SCH (08:37)
[2016-11-19] MEDS: OMEGA-3 (PURIFIED FISH OIL) 1 GM CAP PO SCH (08:37)
[2016-11-19] MEDS: ISOSORBIDE MONONITRATE 30 MG TABCR PO SCH (08:37)
[2016-11-19] MEDS: MAGNESIUM OXIDE 400 MG TAB PO SCH ×2 (08:37→19:57)
[2016-11-19] MEDS: METOLAZONE 5 MG TAB PO SCH (08:38)
[2016-11-19] MEDS: BACITRACIN OINT 15 GM TUBE EXT SCH (08:38)
[2016-11-19] MEDS: BUMETANIDE IV 2 MG in SYRINGE 0 ML IV SCH (08:39)
[2016-11-19] MEDS: DORZOLAMIDE HCL 2% OPH SOLN 10 ML BTL OP SCH ×2 (08:39→19:55)
[2016-11-19] MEDS: LORAZEPAM 1 MG TAB PO PRN ×3 (08:42→23:46)
[2016-11-19] MEDS: OXYCODONE/ACETAMINOPHEN 10/325MG TAB PO PRN ×2 (08:43→23:46)
[2016-11-19] MEDS: INSULIN ASPART 100 UNITS/ML VIAL SQ SCH ×3 (08:59→17:37)
[2016-11-19] MEDS: INSULIN ASPART 100 UNITS/ML 3 ML PEN SC SCH ×4 (09:00→21:28)
[2016-11-19] MEDS: INSULIN GLARGINE SC SCH ×2 (09:00→21:28)
[2016-11-19] MEDS: SPIRONOLACTONE 25 MG TAB PO SCH ×2 (09:03→17:38)
--- NOTE | 2016-11-19 09:12 | CARDIOLOGY PROGRESS NOTE ---
DATE: 11/19/2016 DATE: 11/19/2016. SUBJECTIVE: This morning Mr. Tim claims to be feeling better. He states his breathing has improved. He still has "a lot of water". He is ambulatory to the bathroom without assistance and has some mild dyspnea not quite at baseline. He has chronic pain in his right lower foot. He feels that he may be ready for discharge in 2-3 days. PHYSICAL EXAMINATION: GENERAL: The patient does not appear to have any acute distress. He is a pleasant individual who is alert and oriented. His mood and affect appeared normal. He answered all questions appropriately. VITAL SIGNS: Include blood pressure of 117/64 with a pulse of 99. LUNGS: Auscultation of his lungs revealed them to be clear. He had good air movement with no expiratory wheezing. CARDIAC EXAMINATION: Revealed distant heart tones with an irregular irregular rhythm. EXTREMITIES: Examination of the right lower extremity revealed some trophic changes and some swelling around the calf area and foot. There was also some mild erythema that was unchanged from yesterday. LABORATORY STUDIES: Today included a white cell count of 9, hemoglobin of 12.3 and a platelet count of 178. Chemistry profile included sodium 127 and potassium of 3.5, BUN was 24, creatinine was 0.8. ASSESSMENT AND PLAN: 1. Cor pulmonale. The patient seems to be clinically improved. He has been diuresed aggressively with intravenous bumetanide and a daily dose of metolazone. The patient is convinced that he is still urinating briskly, therefore still has a lot of water in his tissues. When asked how he gauges how much edema he has he could not be more specific other than nothing the fact that diuretics continue to produce a brisk urine output. Given his electrolyte abnormalities and brisk response to intravenous bumetanide, I think it would be reasonable to switch his diuretic regimen to oral bumetanide and discontinue his metolazone in the setting of significant hyponatremia. During his last hospitalization, he affected continued daily output on oral furosemide and he may do better on oral bumetanide. Judging his overall volume status is difficult given his morbid obesity, I do not feel that he has an element of pulmonary vascular congestion at this point and his renal function has not suffered significantly. I do feel, however, he is getting close to his dry weight and once again will switch to an oral regimen without metolazone may be considered. 2. Coronary artery disease. No current symptoms consistent with angina or coronary insufficiency, consider secondary prevention. 3. Atrial fibrillation. He has reasonable rate control on his current regimen and can be switched to long acting diltiazem. He should continue on anticoagulation. At this point, cardiology service will sign off. Please call with additional questions or concerns regarding his medical regimen. The patient should follow up in the outpatient setting in 2-4 weeks of discharge.
[2016-11-19 10:38] LABS: BUN/CREATININE RATIO 23.5 (10-20); CALCIUM 8.9 mg/dl (8.5-10.1); POTASSIUM 3.4 mmol/L (3.5-5.1)
[2016-11-19 10:51] LABS: BETA-HYDROXYBUTYRATE 2.6 mg/dL (0.2-2.81)
[2016-11-19] MEDS: DOXYCYCLINE HYCLATE 100 MG CAP PO SCH ×2 (12:29→23:47)
[2016-11-19 13:30] LABS: URINE APPEARANCE CLEAR (CLEAR); URINE BILIRUBIN NEG (NEG); URINE NITRITE NEG (NEG); URINE SPECIFIC GRAVITY 1.011 (1.000-1.030); UROBILINOGEN NEG (NEG); ZZUR CULT IF INDIC CLEAN CATCH NO
[2016-11-19 13:33] LABS: MANUAL MICROSCOPIC REQUIRED? NO; REVIEW REQ? NO; URINE COLOR AMBER
[2016-11-19] MEDS: ACETAMINOPHEN 325 MG TAB PO PRN (17:39)
[2016-11-19] MEDS: LATANOPROST 0.005% OP SOLN 2.5 ML BTL OP SCH (21:29)
[2016-11-20] VITALS (9 sets, daily range): BP systolic 91–160; BP diastolic 43–80; PULSE 73–99; TEMP 36–36.4; O2SAT 92–98
[2016-11-20] MEDS: ALBUT/IPRATROP 3MG/0.5MG NEB 3 ML VIAL INH SCH ×4 (02:01→19:06)
[2016-11-20] MEDS: ACETAMINOPHEN 325 MG TAB PO PRN ×2 (05:38→15:43)
[2016-11-20 06:13] LABS: HEMATOCRIT 34.1 % (42-52); MEAN CORPUSCULAR HEMOGLOBIN 31.1 pg (25-34); MEAN CORPUSCULAR HGB CONC 34.6 g/dl (32-36); PLATELET COUNT 172 K/uL (130-400); RED BLOOD COUNT 3.79 M/uL (4.7-6.1); WHITE BLOOD COUNT 10.03 K/uL (4.8-10.8)
[2016-11-20 06:49] LABS: BUN/CREATININE RATIO 30.6 (10-20); CALCIUM 8.6 mg/dl (8.5-10.1); CREATININE 0.85 mg/dl (0.60-1.40); PHOSPHORUS 3.4 mg/dl (2.5-4.9); POTASSIUM 3.7 mmol/L (3.5-5.1)
--- NOTE | 2016-11-20 07:31 | Family Medicine Progress Note ---
Progress Note Date of Service Nov 20, 2016. Subjective Pt evaluation today including: conversation w/ patient Patient sitting up in bed. He denies acute overnight events, but states he is feeling unwell today. He denies issues with pain, SOB, chest discomfort, and eventually states he is anxious and annoyed about "everyone telling me I need to go to rehab." I did reassure him that though he would likely benefit from rehab and we are highly recommending it, ultimately he will decide whether or not he takes our recommendations. I assured him all his care providers and family believe that outcomes would be favourable with step down care, for his own benefit. Patient said he understood this. Constitutional: No chills, No fever Respiratory: No shortness of breath Cardiovascular: + edema, No chest pain, No palpitations Abdomen: No nausea, No pain Musculoskeletal: + swelling Objective Vital Signs Date Time Temp Pulse Resp B/P Pulse Ox O2 Delivery O2 Flow Rate FiO2 11/20/16 07:17 36.1 84 26 100/59 92 Trach Collar 11/20/16 02:01 88 18 96 Trach Collar 28 11/20/16 00:30 36.4 99 20 160/80 98 Room Air 11/20/16 00:00 Room Air 28 Trach Collar 11/19/16 20:00 Room Air 6.0 28 Trach Collar 11/19/16 19:53 91 130/72 11/19/16 19:36 88 18 96 Room Air 11/19/16 16:00 Room Air 11/19/16 15:02 36.0 73 18 129/64 96 Room Air 11/19/16 14:55 96 18 97 Room Air 11/19/16 08:00 Room Air 11/19/16 07:37 84 18 100 Room Air Physical Exam General Appearance: WD/WN, + mild distress Eyes: normal inspection ENT: hearing grossly normal Respiratory/Chest: no respiratory distress, no accessory muscle use, + decreased breath sounds, + crackles Cardiovascular: regular rate, rhythm Abdomen: normal bowel sounds, non tender, soft Extremities: + pedal edema, + swelling Neurologic/Psychiatric: alert, normal mood/affect, oriented x 3 Skin: + pertinent finding (right leg has changes consistent with chronic venous insufficiency) Laboratory Results Results Past 24 Hours Test 11/19/16 20:27 11/20/16 05:30 4/19/17 07:19 11/20/16 11:43 Range/Units Bedside Glucose 236 169 173 70-99 mg/dl White Blood Count 10.03 4.8-10.8 K/uL Red Blood Count 3.79 4.7-6.1 M/uL Hemoglobin 11.8 14.0-18.0 g/dL Hematocrit 34.1 42-52 % Mean Corpuscular Volume 90.0 80-100 fL Mean Corpuscular Hemoglobin 31.1 25-34 pg Mean Corpuscular Hemoglobin Concent 34.6 32-36 g/dl RDW Standard Deviation 47.0 36.4-46.3 fL RDW Coefficient of Variation 14.3 11.5-14.5 % Platelet Count 172 130-400 K/uL Mean Platelet Volume 11.0 7.4-10.4 fL Sodium Level 130 136-145 mmol/L Potassium Level 3.7 3.5-5.1 mmol/L Chloride Level 91 98-107 mmol/L Carbon Dioxide Level 28 21-32 mmol/L Anion Gap 11.0 3-11 mmol/L Blood Urea Nitrogen 26 7-18 mg/dl Creatinine 0.85 0.60-1.40 mg/dl Est Creatinine Clear Calc Drug Dose 167.6 ml/min Estimated GFR () 109.0 Estimated GFR (Non- 94.0 BUN/Creatinine Ratio 30.6 10-20 Random Glucose 154 70-99 mg/dl Calcium Level 8.6 8.5-10.1 mg/dl Phosphorus Level 3.4 2.5-4.9 mg/dl Magnesium Level 2.0 1.8-2.4 mg/dl Test 11/20/16 15:59 Range/Units Bedside Glucose 160 70-99 mg/dl Assessment and Plan 61 year old male with right sided CHF, COPD, severe ALLIE with trachea, chronic rate-controlled afib, IDDM with high insulin requirement, chronic venous insufficiency of lower extremities and chronic lower extremity edema, morbid obesity, CAD, HLD, and chronic lactic acidosis admitted with acute on chronic CHF exacerbation with a 10kg weight gain since discharge from [facility] on 2016 with similar complaints. Acute on chronic diastolic congestive heart failure exacerbation - 10kg weight gain since previous admission 11/06/2016. During that admission was diuresed 21L of fluid. CXR showed bibasilar opacities and cardiomegaly unchanged from previous admission, previous ECHO on 05/19 showed EF of 50-55% but technically difficult to assess so unable to accurately visualize right side of heart. Home dose Lasix 60mg IV QID possibly not effective 2/2 bowel edema, thus discontinued. Improving volume status secondary to aggressive diuresis. Aiming to maintain K+ > 4 and Mg+ > 2. - Continue Spironolactone 25mg PO BID, Metolazone 5mg qAM, Bumex 1mg qAM - I/O: Net -27.1L - Strict I/O, monitor BMP and daily weights - KCl supplementation 60mEq TID and Mg+ last supplemented 11/18 Right lower extremity cellulitis - History of chronic recurrent lower extremity cellulitis. Wound culture negative. Rocephin discontinued. Wound care consulted -recs appreciated. - Continue Doxycycline 100mg BID (Day 67) - Pain - Percocet 10/325 q8h PRN - Wound center follow up upon discharge Obstructive sleep apnea - Continue CPAP at bedtime, on 6L O2 continuous COPD - Continue Pulmicort 1mg BID INH, Duoneb 3ml Q6h INH, Albuterol 2puff q4h PRN - Guaifenesin 1200mg BID IDDM - 80 units lantus BID - Insulin Aspart - Sliding Scale Insulin - Plans to discuss addition of insulin child therapist tomorrow Coronary Artery Disease s/p CABG - Stable with no acute EKG changes - Continue Aspirin 81mg daily, Atorvastatin 80mg daily, Isosorbide Mononitrate 30mg daily, Metoprolol 25mg BID Atrial Fibrillation - Continue Cardizem 120mg daily tomorrow - Xarelto 20mg Daily Anxiety - Ativan QID PRN DVT Prophylaxis - Not indicated as anticoagulated with Xarelto Disposition - [facility] for rehab, after adequate diuresis Resident Physician Supervision Note: I interviewed and examined the patient. Discussed with Dr. Alejandre and agree with findings and plan as documented in the note. Any exceptions or clarifications are listed here: None Documented By: César Lin sleeping comfortably. d/w dr alejandre at length no new problems with nursing. pt does not feel ready for rehab yet but does feel he's getting better - allowed pt to rest vitals noted, nad breathing unlabored no accessory muscles no pallor or icterus no apneas acute on chronic diastolic CHF and venous insufficiency - ongoing diuretic titration hyponatremia - improving otherwise as above Continued [facility] stay due to: home environment unsafe for pt Discharge planning: rehab hospital Resident Tracking Resident Involvement: Resident Care Provided Care Provided: Adult Hospital Medicine
[2016-11-20] MEDS: BUDESONIDE 0.5 MG/2 ML VIAL (PULMICORT) INH SCH ×2 (07:59→19:06)
[2016-11-20] MEDS ORDERED: DILTIAZEM HCL 30 MG TAB PO SCH (08:00)
[2016-11-20] MEDS: INSULIN ASPART 100 UNITS/ML 3 ML PEN SC SCH ×4 (08:18→20:13)
[2016-11-20] MEDS: INSULIN GLARGINE SC SCH ×2 (08:18→20:16)
[2016-11-20] MEDS: SPIRONOLACTONE 25 MG TAB PO SCH ×2 (08:19→17:40)
[2016-11-20] MEDS: BUMETANIDE 1 MG TAB PO SCH (08:19)
[2016-11-20] MEDS: RIVAROXABAN 10 MG TAB PO SCH (08:19)
[2016-11-20] MEDS: DILTIAZEM HCL 120 MG ER CAP PO SCH (08:19)
[2016-11-20] MEDS: INSULIN ASPART 100 UNITS/ML VIAL SQ SCH ×3 (08:19→17:40)
[2016-11-20] MEDS: METOLAZONE 5 MG TAB PO SCH (08:20)
[2016-11-20] MEDS: METOPROLOL TARTRATE 25 MG TAB PO SCH ×2 (08:20→20:18)
[2016-11-20] MEDS: GUAIFENESIN 600 MG TABCR PO SCH ×2 (08:20→20:18)
[2016-11-20] MEDS: POTASSIUM CHLORIDE 20 MEQ TABCR PO SCH ×3 (08:20→17:40)
[2016-11-20] MEDS: MAGNESIUM OXIDE 400 MG TAB PO SCH ×2 (08:20→20:19)
[2016-11-20] MEDS: DORZOLAMIDE HCL 2% OPH SOLN 10 ML BTL OP SCH ×2 (08:21→20:19)
[2016-11-20] MEDS: ISOSORBIDE MONONITRATE 30 MG TABCR PO SCH (08:21)
[2016-11-20] MEDS: ASPIRIN 81 MG ECTAB PO SCH (08:21)
[2016-11-20] MEDS: OMEGA-3 (PURIFIED FISH OIL) 1 GM CAP PO SCH (08:21)
[2016-11-20] MEDS: ATORVASTATIN 40 MG TAB PO SCH (08:21)
[2016-11-20] MEDS: BACITRACIN OINT 15 GM TUBE EXT SCH (08:21)
[2016-11-20] MEDS: LISINOPRIL 10 MG TAB PO SCH (08:22)
[2016-11-20] MEDS: LORAZEPAM 1 MG TAB PO PRN ×3 (08:29→22:27)
[2016-11-20] MEDS: OXYCODONE/ACETAMINOPHEN 10/325MG TAB PO PRN ×2 (08:29→22:27)
[2016-11-20] MEDS: DOXYCYCLINE HYCLATE 100 MG CAP PO SCH ×2 (12:39→22:29)
[2016-11-20] MEDS: LATANOPROST 0.005% OP SOLN 2.5 ML BTL OP SCH (21:16)
[2016-11-21] VITALS (9 sets, daily range): BP systolic 115–135; BP diastolic 59–78; PULSE 70–101; TEMP 36–36.6; O2SAT 95–99
[2016-11-21] MEDS: ALBUT/IPRATROP 3MG/0.5MG NEB 3 ML VIAL INH SCH ×4 (02:07→19:20)
[2016-11-21] MEDS: BUDESONIDE 0.5 MG/2 ML VIAL (PULMICORT) INH SCH ×2 (07:35→19:20)
--- NOTE | 2016-11-21 07:55 | Family Medicine Progress Note ---
Progress Note Date of Service Nov 21, 2016. Subjective Pt evaluation today including: conversation w/ patient, physical exam, chart review, lab review Patient sitting up in bed. He denies acute overnight events. He states his breathing is good, and he denies chest discomfort and anxiety similar to yesterday. He has ongoing diuresis in large volume, but slower than initial. Discontinuation of Manirque was discussed. The swelling and redness in his right leg has also improved, as per patient. A significant amount of time was spent with the patient discussing the benefits of rehabilitative services and how he could benefit from even minor improvements with exercises. In addition, the importance of a low salt diet was re-iterated. Education given regarding addition of salt versus foods already containing large quantities of food. Constitutional: No chills, No fever Respiratory: No cough, No shortness of breath Cardiovascular: + edema, No chest pain, No palpitations Abdomen: No nausea, No pain, No vomiting Male : No dysuria Objective Vital Signs Date Time Temp Pulse Resp B/P Pulse Ox O2 Delivery O2 Flow Rate FiO2 11/21/16 07:20 36.0 101 18 119/78 96 Room Air 11/21/16 02:08 84 18 99 Trach Collar 28 11/21/16 00:00 CPAP 11/20/16 23:20 36.4 75 18 145/75 94 Room Air 11/20/16 20:00 CPAP 11/20/16 19:07 80 18 97 Room Air 11/20/16 16:00 Room Air 28 11/20/16 15:58 73 133/73 11/20/16 15:26 88 18 96 Room Air 11/20/16 15:10 36.0 74 20 91/43 96 Room Air 11/20/16 08:00 Room Air 28 11/20/16 07:59 82 18 96 Room Air Physical Exam General Appearance: WD/WN, no apparent distress, + obese Eyes: normal inspection ENT: hearing grossly normal Neck: + pertinent finding Respiratory/Chest: no respiratory distress, no accessory muscle use, + decreased breath sounds, + crackles Cardiovascular: regular rate, rhythm Abdomen: normal bowel sounds, non tender, soft Extremities: + pedal edema, + swelling Neurologic/Psychiatric: alert, normal mood/affect, oriented x 3 Laboratory Results Results Past 24 Hours Test 11/20/16 19:39 11/21/16 07:33 11/21/16 09:25 11/21/16 11:26 Range/Units Bedside Glucose 172 166 288 70-99 mg/dl White Blood Count 10.69 4.8-10.8 K/uL Red Blood Count 4.11 4.7-6.1 M/uL Hemoglobin 12.8 14.0-18.0 g/dL Hematocrit 36.9 42-52 % Mean Corpuscular Volume 89.8 80-100 fL Mean Corpuscular Hemoglobin 31.1 25-34 pg Mean Corpuscular Hemoglobin Concent 34.7 32-36 g/dl RDW Standard Deviation 47.0 36.4-46.3 fL RDW Coefficient of Variation 14.4 11.5-14.5 % Platelet Count 190 130-400 K/uL Mean Platelet Volume 11.0 7.4-10.4 fL Sodium Level 127 136-145 mmol/L Potassium Level 4.1 3.5-5.1 mmol/L Chloride Level 88 98-107 mmol/L Carbon Dioxide Level 27 21-32 mmol/L Anion Gap 12.0 3-11 mmol/L Blood Urea Nitrogen 21 7-18 mg/dl Creatinine 0.96 0.60-1.40 mg/dl Est Creatinine Clear Calc Drug Dose 148.9 ml/min Estimated GFR () 98.5 Estimated GFR (Non- 85.0 BUN/Creatinine Ratio 22.0 10-20 Random Glucose 236 70-99 mg/dl Calcium Level 9.1 8.5-10.1 mg/dl Phosphorus Level 3.0 2.5-4.9 mg/dl Magnesium Level 1.9 1.8-2.4 mg/dl Test 11/21/16 16:28 Range/Units Bedside Glucose 145 70-99 mg/dl Assessment and Plan 61 year old male with right sided CHF, COPD, severe ALLIE with trachea, chronic rate-controlled afib, IDDM with high insulin requirement, chronic venous insufficiency of lower extremities and chronic lower extremity edema, morbid obesity, CAD, HLD, and chronic lactic acidosis admitted with acute on chronic CHF exacerbation with a 10kg weight gain since discharge from [facility] on 2016 with similar complaints. Acute on chronic diastolic congestive heart failure exacerbation - 10kg weight gain since previous admission 11/06/2016. During that admission was diuresed 21L of fluid. CXR showed bibasilar opacities and cardiomegaly unchanged from previous admission, previous ECHO on 05/19 showed EF of 50-55% but technically difficult to assess so unable to accurately visualize right side of heart. Home dose Lasix 60mg IV QID possibly not effective 2/2 bowel edema, thus discontinued. Improving volume status secondary to aggressive diuresis. Aiming to maintain K+ > 4 and Mg+ > 2. - Continue Spironolactone 25mg PO BID, Metolazone 5mg qAM, Bumex 1mg qAM - I/O: Net -30.3L - Strict I/O, monitor BMP and daily weights - KCl 60mEq TID and MgO 400mg BID - Plans to discontinue Manrique catheter today Right lower extremity cellulitis - History of chronic recurrent lower extremity cellulitis. Wound culture negative. Rocephin discontinued. Wound care consulted -recs appreciated. - Completion of 7 day course of Doxycycline 100mg BID today - Wound center follow up upon discharge Obstructive sleep apnea - Continue CPAP at bedtime, on 6L O2 continuous COPD - Continue Pulmicort 1mg BID INH, Duoneb 3ml Q6h INH, Albuterol 2puff q4h PRN, Guaifenesin 1200mg BID IDDM - 80 units lantus BID + insulin Aspart sliding scale Coronary Artery Disease s/p CABG - Stable with no acute EKG changes - Continue Aspirin 81mg daily, Atorvastatin 80mg daily, Isosorbide Mononitrate 30mg daily, Metoprolol 25mg BID Atrial Fibrillation - Continue Cardizem 120mg daily, Xarelto 20mg Daily Chronic back and knee pain - Pain - Percocet 10/325 q8h PRN Anxiety - Ativan QID PRN DVT Prophylaxis - Not indicated as anticoagulated with Xarelto Disposition - [facility] for rehab, after adequate diuresis Resident Physician Supervision Note: I interviewed and examined the patient. Discussed with Dr. Molina and agree with findings and plan as documented in the note. Any exceptions or clarifications are listed here: None Documented By: César Lin feeling about the same, reticent about having manrique out because he doesn't want to be up all night peeing. notes that happens at home all the time too. discussed risks of chronic manrique and he consented to removal. argumentatively consents to HSR - wants to do and does not at all refuse going - but notes that "it's not going to do anything" and reviews his back pain and knee pain and that he needs to lose weight to get them better but can't lose weight. discussed weight loss and how difficult it is to achieve that with diet alone - and that any movement will help. discussed Na intake at home - relates trying to sodium restrict but then in asking what they eat, it's things like beef stroganoff, pasta w gravy, potato chips (that he notes separate times is "not that often" or vaguely frequently enough to ?be daily) -- discussed the critical importance of Na restriction in CHF management and huge risk for readmission if no restriction in Na. vitalsnoted, nad breathing unlabored erythema leg faded to dull mostly chronic stasis appearing changes a/p acute on chronic diastolic CHF w venous insufficiency mediated fluid retention as well - doing better, on PO bumex. educated as above on Na restriction. chronic pain - discussed need for weight loss in managing this, and need for movement to help aaffect weight loss. encouraged true effort at HSR. trial of lyrica in addition to percocet. consider SNRI morbid obesity -discussed weight loss in terms of needing to usually be eating changes and exercise for success. pt has an argumentative conversational style and therefore i was not able build from a foundation as i usually try to, but was able to at least impart that for him to succeed, even increasing movement by a ltitle would likely be more beneficial than he realizes otherwise as above Continued [facility] stay due to: ambulation difficulties Discharge planning: rehab hospital Resident Tracking Resident Involvement: Resident Care Provided Care Provided: Adult Hospital Medicine
[2016-11-21] MEDS: DORZOLAMIDE HCL 2% OPH SOLN 10 ML BTL OP SCH ×2 (08:35→19:58)
[2016-11-21] MEDS: BACITRACIN OINT 15 GM TUBE EXT SCH (08:35)
[2016-11-21] MEDS: RIVAROXABAN 10 MG TAB PO SCH (08:36)
[2016-11-21] MEDS: SPIRONOLACTONE 25 MG TAB PO SCH ×2 (08:37→18:10)
[2016-11-21] MEDS: ASPIRIN 81 MG ECTAB PO SCH (08:37)
[2016-11-21] MEDS: ISOSORBIDE MONONITRATE 30 MG TABCR PO SCH (08:37)
[2016-11-21] MEDS: ATORVASTATIN 40 MG TAB PO SCH (08:38)
[2016-11-21] MEDS: METOLAZONE 5 MG TAB PO SCH (08:38)
[2016-11-21] MEDS: GUAIFENESIN 600 MG TABCR PO SCH ×2 (08:38→19:57)
[2016-11-21] MEDS: METOPROLOL TARTRATE 25 MG TAB PO SCH ×2 (08:38→19:58)
[2016-11-21] MEDS: LISINOPRIL 10 MG TAB PO SCH (08:39)
[2016-11-21] MEDS: POTASSIUM CHLORIDE 20 MEQ TABCR PO SCH ×3 (08:39→18:08)
[2016-11-21] MEDS: OMEGA-3 (PURIFIED FISH OIL) 1 GM CAP PO SCH (08:39)
[2016-11-21] MEDS: DILTIAZEM HCL 120 MG ER CAP PO SCH (08:39)
[2016-11-21] MEDS: BUMETANIDE 1 MG TAB PO SCH (08:40)
[2016-11-21] MEDS: MAGNESIUM OXIDE 400 MG TAB PO SCH ×2 (08:40→19:58)
[2016-11-21] MEDS: INSULIN ASPART 100 UNITS/ML VIAL SQ SCH ×3 (08:49→18:21)
[2016-11-21] MEDS: INSULIN ASPART 100 UNITS/ML 3 ML PEN SC SCH ×4 (08:50→21:16)
[2016-11-21] MEDS: INSULIN GLARGINE SC SCH ×2 (08:51→20:00)
[2016-11-21 09:53] LABS: HEMATOCRIT 36.9 % (42-52); MEAN CELL VOLUME 89.8 fL (80-100); MEAN CORPUSCULAR HEMOGLOBIN 31.1 pg (25-34); MEAN CORPUSCULAR HGB CONC 34.7 g/dl (32-36); PLATELET COUNT 190 K/uL (130-400); RED BLOOD COUNT 4.11 M/uL (4.7-6.1); WHITE BLOOD COUNT 10.69 K/uL (4.8-10.8)
[2016-11-21 10:50] LABS: CALCIUM 9.1 mg/dl (8.5-10.1); CREATININE 0.96 mg/dl (0.60-1.40); MAGNESIUM 1.9 mg/dl (1.8-2.4); POTASSIUM 4.1 mmol/L (3.5-5.1)
[2016-11-21] MEDS: DOXYCYCLINE HYCLATE 100 MG CAP PO SCH ×2 (12:43→19:57)
[2016-11-21] MEDS: LORAZEPAM 1 MG TAB PO PRN ×2 (12:51→21:20)
[2016-11-21] MEDS: OXYCODONE/ACETAMINOPHEN 10/325MG TAB PO PRN ×2 (12:52→21:20)
[2016-11-21] MEDS: PREGABALIN 75 MG CAP PO SCH ×2 (20:00→20:08)
[2016-11-21] MEDS: LATANOPROST 0.005% OP SOLN 2.5 ML BTL OP SCH (21:15)
[2016-11-22 01:59] VITALS: PULSE 84; O2SAT 97
[2016-11-22] MEDS: ALBUT/IPRATROP 3MG/0.5MG NEB 3 ML VIAL INH SCH ×3 (01:59→14:37)
[2016-11-22 06:09] LABS: HEMATOCRIT 36.1 % (42-52); MEAN CELL VOLUME 88.5 fL (80-100); MEAN CORPUSCULAR HEMOGLOBIN 30.9 pg (25-34); MEAN CORPUSCULAR HGB CONC 34.9 g/dl (32-36); MEAN PLATELET VOLUME 11.1 fL (7.4-10.4); PLATELET COUNT 206 K/uL (130-400); RED BLOOD COUNT 4.08 M/uL (4.7-6.1); WHITE BLOOD COUNT 11.85 K/uL (4.8-10.8)
[2016-11-22] MEDS: INSULIN ASPART 100 UNITS/ML 3 ML PEN SC SCH ×3 (06:30→17:36)
[2016-11-22 06:53] LABS: BUN/CREATININE RATIO 27.7 (10-20); CALCIUM 8.9 mg/dl (8.5-10.1); CREATININE 0.91 mg/dl (0.60-1.40); MAGNESIUM 2.1 mg/dl (1.8-2.4); POTASSIUM 3.9 mmol/L (3.5-5.1)
[2016-11-22 06:54] LABS: PHOSPHORUS 3.4 mg/dl (2.5-4.9)
[2016-11-22 07:11] VITALS: BP 109/83; PULSE 98; TEMP 36.9; O2SAT 90
--- NOTE | 2016-11-22 07:14 | Family Medicine Progress Note ---
Progress Note Date of Service Nov 22, 2016. Subjective Pt evaluation today including: conversation w/ patient, physical exam, chart review, lab review Objective Vital Signs Date Time Temp Pulse Resp B/P Pulse Ox O2 Delivery O2 Flow Rate FiO2 11/22/16 01:59 84 20 97 Trach Collar 28 11/22/16 00:00 CPAP 6.0 11/21/16 23:20 36.6 70 18 135/62 95 BiPAP 11/21/16 20:00 CPAP 6.0 11/21/16 19:21 80 18 98 Room Air 11/21/16 16:00 96 Room Air 6.0 28 11/21/16 14:44 36.1 77 22 115/59 95 Room Air 11/21/16 14:13 83 18 97 Room Air 11/21/16 08:00 98 Room Air 6.0 28 11/21/16 07:35 83 18 98 Room Air 11/21/16 07:20 36.0 101 18 119/78 96 Room Air Resident Tracking Resident Involvement: Resident Care Provided Care Provided: Adult Hospital Medicine
[2016-11-22] MEDS: PREGABALIN 75 MG CAP PO SCH (08:00)
[2016-11-22] MEDS: BUDESONIDE 0.5 MG/2 ML VIAL (PULMICORT) INH SCH (08:00)
[2016-11-22] MEDS: INSULIN ASPART 100 UNITS/ML VIAL SQ SCH ×3 (08:11→17:38)
[2016-11-22] MEDS: INSULIN GLARGINE SC SCH (08:12)
[2016-11-22] MEDS: DORZOLAMIDE HCL 2% OPH SOLN 10 ML BTL OP SCH (08:17)
[2016-11-22] MEDS: METOPROLOL TARTRATE 25 MG TAB PO SCH (08:18)
[2016-11-22] MEDS: ISOSORBIDE MONONITRATE 30 MG TABCR PO SCH (08:18)
[2016-11-22] MEDS: ASPIRIN 81 MG ECTAB PO SCH (08:18)
[2016-11-22] MEDS: BUMETANIDE 1 MG TAB PO SCH (08:18)
[2016-11-22] MEDS: ATORVASTATIN 40 MG TAB PO SCH (08:19)
[2016-11-22] MEDS: POTASSIUM CHLORIDE 20 MEQ TABCR PO SCH ×3 (08:19→17:34)
[2016-11-22] MEDS: LISINOPRIL 10 MG TAB PO SCH (08:20)
[2016-11-22] MEDS: GUAIFENESIN 600 MG TABCR PO SCH (08:21)
[2016-11-22] MEDS: METOLAZONE 5 MG TAB PO SCH (08:21)
[2016-11-22] MEDS: MAGNESIUM OXIDE 400 MG TAB PO SCH (08:21)
[2016-11-22] MEDS: OMEGA-3 (PURIFIED FISH OIL) 1 GM CAP PO SCH (08:21)
[2016-11-22] MEDS: DILTIAZEM HCL 120 MG ER CAP PO SCH (08:22)
[2016-11-22] MEDS: RIVAROXABAN 10 MG TAB PO SCH (08:22)
[2016-11-22] MEDS: BACITRACIN OINT 15 GM TUBE EXT SCH (08:23)
[2016-11-22] MEDS: SPIRONOLACTONE 25 MG TAB PO SCH ×2 (08:24→17:35)
[2016-11-22] MEDS ORDERED: DLCSR120 PO (10:13)
[2016-11-22] MEDS ORDERED: MCRK20 PO (10:13)
[2016-11-22] MEDS ORDERED: BMX1 PO (10:13)
[2016-11-22] MEDS ORDERED: ZRX5 PO (10:13)
[2016-11-22] MEDS ORDERED: LPR25 PO (10:13)
--- NOTE | 2016-11-22 10:17 | Discharge Instructions ---
Discharge Instructions Date of Service Nov 22, 2016. Admission Reason for Admission: Chf Exacerbation, Sob Discharge Discharge Diagnosis / Problem: Acute on chronic CHF, Cellulitis Discharge Goals Goal(s): Increase independence, Improve disease control, Therapeutic intervention Activity Recommendations Activity Limitations: resume your previous activity Exercise/Sports Limitations: as tolerated . Instructions / Follow-Up Instructions / Follow-Up -continue to be vigilant on sodium intake - when you take in sodium, your kidneys have to retain a certain about of water. when you take in more sodium, your kidneys will retain even more water. try to stay less than 400mg of sodium in any given serving, and less than 1500mg in a day. (as a reference for the foods we talked about the other day, on average a serving of beef stroganoff has about 1000mg of sodium in that alone, 1/4 cup of most gravies has about 330mg of sodium in it....so it's pretty likely that there's more sodium "hidden" in what you've been eating than you realize). staying tight to a low sodium diet is absolutely critical in staying out of the hospital. it can be almost impossible to stay ahead of that with adjustments in diuretics alone. -have labwork (BMP - kidney and electrolyte panel to follow up on the ongoing use of the diuretic) done on 11/25/[address] Hanley Current Hospital Diet Patient's current hospital diet: AHA Diet (Heart Healthy), Diabetes Type 2 Diet Discharge Diet Recommended Diet: AHA Diet (Heart Healthy), Low Sodium Diet (2gm Na) (less than 400mg in a serving, less than 1500mg in a day), Diabetes Type 2 Diet Fluid Restriction: 1500 ml (6 cups) Pending Studies Studies pending at discharge: no Laboratory Results Hemoglobin A1c Test 11/14/16 17:44 Range/Units Estimated Average Glucose 171 mg/dl Hemoglobin A1c 7.6 H 4.5-5.6 % Medical Emergencies . Who to Call and When: Medical Emergencies: If at any time you feel your situation is an emergency, please call 911 immediately. . Non-Emergent Contact Non-Emergency issues call your: Primary Care Provider, Dental Assistant Medical Assistant . . "Provider Documentation" section prepared by Amy Molina. . VTE Core Measure Inpt VTE Proph given/why not?: Other Anticoagulation
[2016-11-22 11:34] VITALS: BP 109/83; PULSE 98; TEMP 36.9; O2SAT 90
[2016-11-22] MEDS: OXYCODONE/ACETAMINOPHEN 10/325MG TAB PO PRN (12:01)
[2016-11-22] MEDS: LORAZEPAM 1 MG TAB PO PRN (12:02)
[2016-11-22 14:37] VITALS: PULSE 88; O2SAT 98
[2016-11-22 14:46] VITALS: BP 108/65; PULSE 83; TEMP 36.5; O2SAT 97
--- NOTE | 2016-11-22 16:10 | Discharge Instructions ---
Discharge Instructions Date of Service Nov 22, 2016. Admission Reason for Admission: Chf Exacerbation, Sob Discharge Discharge Diagnosis / Problem: acute on chronic CHF Discharge Goals Goal(s): Diagnostic testing, Therapeutic intervention Activity Recommendations Activity Limitations: resume your previous activity . Instructions / Follow-Up Instructions / Follow-Up Call your Primary Care doctor if any of the following symptoms or problems start or get worse: * Shortness of breath or difficulty breathing * Wake up at night short of breath * Chest pain * Cough * Swelling of your hands, feet, or legs * More fatigued or tired with your normal activity * Palpitations - sudden fast heart beats WEIGHT * Weigh yourself every morning after using the bathroom. * Use the same scale. * Wear the same amount of clothing. * Write your weight down on a chart. * Call your Primary Care doctor if you gain more than 2-3 pounds in 1-2 days. MEDICATIONS * Use this discharge instruction sheet for medication instructions. * Take your medications at the time your doctor ordered. * Do not skip a dose of your medicines. * If you miss a dose of medicine, take it as soon as possible, but DO NOT DOUBLE A DOSE. * Read your medicine information when you get home. * Know all of the side effects of your medicine. If in doubt, ask your pharmacist * Call your Primary Care doctor's office if you have any side effects. * Be sure all of your doctors know what medicine and herbs you take (including cold, flu, and herbal medicine). Take the following with you to your follow-up doctor appointments: * Weight Chart * Medication List * List of questions Do not drink excessive alcohol, beer or wine. Current Hospital Diet Patient's current hospital diet: AHA Diet (Heart Healthy), Diabetes Type 2 Diet Discharge Diet Recommended Diet: AHA Diet (Heart Healthy), Low Sodium Diet (2gm Na), Diabetes Type 2 Diet Pending Studies Studies pending at discharge: no Laboratory Results Hemoglobin A1c Test 11/14/16 17:44 Range/Units Estimated Average Glucose 171 mg/dl Hemoglobin A1c 7.6 H 4.5-5.6 % Medical Emergencies . Who to Call and When: Call 911 or go to the Emergency Room if: * If at any time you feel your situation is an emergency * You have tightness or pain in your chest that does not go away with rest or Nitroglycerin * You are very short of breath even with rest . Non-Emergent Contact Non-Emergency issues call your: Primary Care Provider, Ink Maker . . "Provider Documentation" section prepared by César Lin. . VTE Core Measure Inpt VTE Proph given/why not?: Other Anticoagulation
--- NOTE | 2016-11-22 22:15 | Discharge Summary ---
Discharge Summary Date of Service Nov 22, 2016. Discharge Summary Admission Date: Nov 14, 2016 at 21:04 Discharge Date: Nov 22, 2016 Discharge Disposition: Home Principal Diagnosis: Acute on chronic CHF, Cellulitis Medication Reconciliation New Medications: Bumetanide (Bumetanide) 1 Mg Tab 2 MG PO QAM for 30 Days, #60 TAB Diltiazem HCl (Diltiazem HCl ER) 120 Mg Caper 120 MG PO QAM for 30 Days Metolazone (Metolazone) 5 Mg Tab 5 MG PO QAM for 30 Days, #30 TAB Metoprolol Tartrate (Lopressor) 25 Mg Tab 25 MG PO BID for 30 Days, #60 TAB Potassium Chloride (Klor-Con M20) 20 Meq Tabcr 60 MEQ PO TIDM for 30 Days Continued Medications: Albuterol Hfa (Ventolin Hfa) 200 Puffs/66312 Mcg Aers 1 PUFFS INH QID PRN for SOB/Wheezing, #1 INHALER Aspirin (Aspirin 81) 81 Mg Tab 81 MG PO DAILY Atorvastatin (Lipitor) 80 Mg Tab 80 MG PO DAILY, TAB Bacitracin (Topical) (Bacitracin) 500 Unit/Gm Oin 1 APPLN TOP DAILY for AFFECTED AREA for 7 Days, #15 GM Beclomethasone Dipropionate (N (Qnasl) 80 Mcg/Act Aer 1 SPRY SIMBA DAILY, #8.7 GM 11 Refills Budesonide (Pulmicort Respules 0.5MG/2ML) 0.5 Mg/2 Ml Nebu 2 ML INH BID, EA Desloratadine (Clarinex) 5 Mg Tab 5 MG PO DAILY, TAB Dorzolamide Hcl (Trusopt Oph) 2 % Vanessa 1 DROPS OP BID, #30 ML 3 Refills Fish Oil ([place]-3) 1 Ea Cap 1 CAP PO DAILY, CAP Glucagon (Glucagon Emergency Kit) 1 Mg Kit 1 DOSE INJ UD Dfxxfykt-Xgxfuqvqikjz-Zwxhskfq (Artificial Tears) 1 Isreal Isreal 1 DROP OPR HS PRN for DRYNESS Guaifenesin (Mucinex Maximum Strength) 1,200 Mg Tab 1200 MG PO BID for 15 Days, #3 TAB Insulin Aspart (Novolog Flexpen) 100 Units/Ml Inj 81 UNITS SQ QAM, #210 Insulin Aspart (Novolog Flexpen) 100 Units/Ml Inj 77 UNITS SQ QPM Insulin Aspart (Novolog Flexpen) 100 Units/Ml Inj 44 UNITS SQ DAILY TAKES WITH LUNCH Insulin Glargine (Lantus Solostar) 100 Unit/Ml Inj 80 UNITS SC AMPM, PEN Ipratropium-Albuterol (Duoneb) 3 Ml Nebu 1 TREATMENT INH Q4H, INHA Isosorbide Mononitrate (Isosorbide Mononitrate ER) 30 Mg Tabcr 30 MG PO DAILY Latanoprost (Xalatan 0.005% Oph Vanessa) 0.005 % Vanessa 1 DROPS OP HS, #2.5 ML 3 Refills Lisinopril (Zestril) 10 Mg Tab 10 MG PO DAILY, TAB Lorazepam (Lorazepam) 1 Mg Tab 1 MG PO QID PRN for Anxiety Magnesium Oxide (Mag-Ox) 400 Mg Tab 400 MG PO BID, TAB Multivitamins/Minerals (Mvi With Minerals) Tab 1 TAB PO DAILY, TAB Nitroglycerin (Nitrostat) 0.4 Mg Tab 1 TAB SL UD, #100 TAB 3 Refills Oxycodone/Acetaminophen 10MG/325MG (Percocet 10MG/325MG) Tab 1 TAB PO Q8 PRN for Pain, TAB Rivaroxaban (Xarelto) 20 Mg Tab 20 MG PO DAILY for 30 Days, 11 Refills Spironolactone (Aldactone) 25 Mg Tab 25 MG PO BID, TAB Discontinued Medications: Diltiazem Hcl (Cardizem) 30 Mg Tab 30 MG PO QID, TAB Furosemide (Lasix) 80 Mg Tab 80 MG PO BID, TAB Metoprolol Tartrate (Lopressor) (Lopressor) 25 Mg Tab 25 MG PO DAILY, TAB Potassium Ext Rel (Klor-Con) 20 Meq Tabcr 60 MEQ PO BID, TAB Discharge Exam Patient sitting up in bed. He denies acute overnight events. He states his breathing is good, and he denies chest discomfort. He is feeling anxious again this morning. He has ongoing diuresis in large volume, but slower than initial. Discontinuation of Ramirez was done last night. The swelling and redness in his right leg has also improved, as per patient. Patient is keen for discharge. A significant amount of time was spent with the patient discussing the significance of a low salt diet and the need to be wary of salt content in foods by reading package labels. Review of Systems: Constitutional: No chills, No fever Respiratory: No shortness of breath Cardiovascular: + edema, No chest pain, No palpitations Abdomen: No nausea, No pain, No vomiting Genitourinary - Male: No dysuria, No urinary frequency, No urinary hesitancy , No urinary retention, No urinary urgency Physical Exam: General Appearance: WD/WN, + mild distress, + obese ENT: hearing grossly normal Respiratory/Chest: no respiratory distress, no accessory muscle use, + decreased breath sounds, + crackles Cardiovascular: regular rate, rhythm, no murmur Abdomen / GI: normal bowel sounds, non tender, soft Extremities: + pedal edema, + swelling Neurologic/Psychiatric: alert, normal mood/affect, oriented x 3 Skin: normal color, warm/dry, no rash, + pertinent finding (Changes consistent with chronic venous insufficiency on right leg) Hospital Course 61 year old male with right sided CHF, COPD, severe ALLIE with trachea, chronic rate-controlled afib, IDDM with high insulin requirement, chronic venous insufficiency of lower extremities and chronic lower extremity edema, morbid obesity, CAD, HLD, and chronic lactic acidosis admitted with acute on chronic CHF exacerbation with a 10kg weight gain since discharge from [facility] on 2016 with similar complaints. Acute on chronic diastolic congestive heart failure exacerbation - 10kg weight gain since previous admission 11/06/2016. During that admission was diuresed 21L of fluid. CXR showed bibasilar opacities and cardiomegaly unchanged from previous admission, previous ECHO on 05/19 showed EF of 50-55% but technically difficult to assess so unable to accurately visualize right side of heart. Home dose Lasix 60mg IV QID possibly not effective 2/2 bowel edema, thus discontinued. Improving volume status secondary to aggressive diuresis. Ramirez removed 11/21 - Continue Spironolactone 25mg PO BID, Metolazone 5mg qAM, Bumex 1mg qAM - KCl 60mEq TID and MgO 400mg BID. - Check BMP next week, with plans to provide extra supplementation if K+ < 4 and Mg+ < 2. Right lower extremity cellulitis - History of chronic recurrent lower extremity cellulitis. Wound culture negative. Rocephin discontinued. Wound care consulted -recs appreciated. Completed 7 day course of Doxycycline. - Wound center follow up upon discharge Obstructive sleep apnea - Continue CPAP at bedtime, on 6L O2 continuous COPD - Continue Pulmicort 1mg BID INH, Duoneb 3ml Q6h INH, Albuterol 2puff q4h PRN, Guaifenesin 1200mg BID IDDM - 80 units lantus BID + insulin Aspart sliding scale Coronary Artery Disease s/p CABG - Stable with no acute EKG changes - Continue Aspirin 81mg daily, Atorvastatin 80mg daily, Isosorbide Mononitrate 30mg daily, Metoprolol 25mg BID Atrial Fibrillation - Continue Cardizem 120mg daily, Xarelto 20mg Daily Chronic back and knee pain - patient declined gabapentin and pregabalin - Pain - Percocet 10/325 q8h PRN Anxiety - Ativan QID PRN DVT Prophylaxis - Not indicated as anticoagulated with Xarelto Total Time Spent: Less than 30 minutes This includes examination of the patient, discharge planning, medication reconciliation, and communication with other providers. Discharge Instructions Please refer to the electronic Patient Visit Report (Discharge Instructions) for additional information.
[2017-03-18] MEDS ORDERED: ATOR-26 PO (08:12)
[2017-03-18] MEDS ORDERED: LISI-461 PO (08:14)
[2017-03-18] MEDS ORDERED: MULT-513 PO (08:19)
[2017-03-18] MEDS ORDERED: OMEG10007 PO (08:21)
[2017-03-23] MEDS ORDERED: SDMC1 PO (11:42)
[2017-03-23] MEDS ORDERED: LVQ750 PO (11:42)
[2017-03-23] MEDS ORDERED: MGNO400 PO (11:42)
== END 2016-11-22 18:55 | disposition home health service (06) | DRG 292 ==
LOC: ENRESERVDT → ENRESERVTM → C.EDB 16:55 → C.2E 21:04 → C.MS4W 11-18 16:37
PROVIDERS: ADMIT Internal Medicine; ATTEND Family Medicine
DX: I50.33 Acute on chronic diastolic (congestive) heart failure (principal); Z68.44 Body mass index [BMI] 60.0-69.9, adult; E87.1 Hypo-osmolality and hyponatremia; E87.2 Acidosis; L03.116 Cellulitis of left lower limb; L03.115 Cellulitis of right lower limb; J96.10 Chronic respiratory failure, unspecified whether with hypoxia or hypercapnia; E66.01 Morbid (severe) obesity due to excess calories; G47.33 Obstructive sleep apnea (adult) (pediatric); J44.9 Chronic obstructive pulmonary disease, unspecified; I48.2 Chronic atrial fibrillation; Z79.4 Long term (current) use of insulin; E78.5 Hyperlipidemia, unspecified; I25.10 Atherosclerotic heart disease of native coronary artery without angina pectoris; Z99.81 Dependence on supplemental oxygen; Z79.82 Long term (current) use of aspirin; Z79.899 Other long term (current) drug therapy; Z79.01 Long term (current) use of anticoagulants; Z87.891 Personal history of nicotine dependence; Z82.49 Family history of ischemic heart disease and other diseases of the circulatory system; Z83.3 Family history of diabetes mellitus; I11.0 Hypertensive heart disease with heart failure; F41.9 Anxiety disorder, unspecified; Z93.0 Tracheostomy status; I87.2 Venous insufficiency (chronic) (peripheral); I27.81 Cor pulmonale (chronic); Z95.1 Presence of aortocoronary bypass graft; Z95.5 Presence of coronary angioplasty implant and graft; E11.621 Type 2 diabetes mellitus with foot ulcer; L97.529 Non-pressure chronic ulcer of other part of left foot with unspecified severity; E11.51 Type 2 diabetes mellitus with diabetic peripheral angiopathy without gangrene

== ENCOUNTER 2017-03-18 11:19 | Inpatient (IN) | payer OTHER ==
[~2017-03-18] VITALS: Ht 182.9 cm; Wt 203.3 kg
[~2017-03-18 11:19] MED LIST changes: +ATOR-26 PO; +BMX1 PO; -DILT30TA PO; +DLCSR120 PO; -FURO80TA63 PO; +LISI-461 PO; +LPR25 PO; +MCRK20 PO; -METO25TA56 PO; +MULT-513 PO; +OMEG10007 PO; -POTA20TA16 PO; -XLTOPS OPB; +ZRX5 PO
[2017-03-18] MEDS ORDERED: ASPI-435 PO (11:24)
[2017-03-18] MEDS ORDERED: CLR/5 PO (11:24)
[2017-03-18] MEDS ORDERED: GLGKIT INJ (11:24)
[2017-03-18] MEDS ORDERED: SPIR25TA89 PO (11:43)
[2017-03-18] MEDS ORDERED: ALBUT/IPRATROP 3MG/0.5MG NEB 3 ML VIAL INH ONE (11:45)
[2017-03-18] MEDS ORDERED: BECL1AER5 NAE (11:46)
--- NOTE | 2017-03-18 11:47 | EMERGENCY ROOM VISIT NOTE ---
History Report prepared by Shine: Teena Chi Under the Supervision of: Dr. Abhinav Patel M.D. First contact with patient: 11:33 Chief Complaint: REFERRED BY DOCTOR Stated Complaint: REFERRED BY PULMINARY DOCTOR History of Present Illness The patient is a 62 year old male who presents to the Emergency Room with complaints of a pulmonary referral. The patient states that his doctor said that his magnesium and sodium levels were low. He denies having shortness of breath. Source of History: patient Onset: prior to arrival Position: other (global) Quality: other (pulmonary referral ) Associated Symptoms: No SOB Note: additional symptom: low magnesium and sodium levels Review of Systems See HPI for pertinent positives & negatives. A total of 10 systems reviewed and were otherwise negative. Past Medical & Surgical Medical Problems: (1) Cellulitis (2) Cellulitis and abscess of leg (3) CHF exacerbation (4) COPD (chronic obstructive pulmonary disease) (5) COPD exacerbation (6) Diabetes (7) Dyspnea (8) Fever chills (9) HCAP (healthcare-associated pneumonia) (10) Hemoptysis (11) Hyperlipidemia (12) Hyponatremia (13) Morbid obesity (14) PNA (pneumonia) (15) Sepsis due to Streptococcus pneumoniae (16) SOB (shortness of breath) Surgical Problems: (1) Tracheostomy in place Family History Diabetes mellitus Heart disease Hypertension Social History Smoking Status: Former Smoker Drug Use: none Marital Status: Occupation Status: unemployed Current/Historical Medications Scheduled Aspirin (Aspirin 81), 81 MG PO DAILY Atorvastatin (Lipitor), 80 MG PO DAILY Atorvastatin Calcium (Lipitor), 1 TAB PO DAILY Bacitracin (Topical) (Bacitracin), 1 APPLN TOP DAILY Beclomethasone Dipropionate (N (Qnasl), 1 SPRY SIMBA DAILY Budesonide (Pulmicort Respules 0.5MG/2ML), 2 ML INH BID Budesonide/Formoterol Fumarate (Symbicort 160/4.5 Inhaler ), 1 PUFFS INH BID Bumetanide (Bumetanide), 2 MG PO QAM Desloratadine (Clarinex), 5 MG PO DAILY Diltiazem HCl (Diltiazem HCl ER), 120 MG PO QAM Dorzolamide Hcl (Trusopt Oph), 1 DROPS OP BID Fish Oil ([place]-3), 1 CAP PO DAILY Glucagon (Glucagon Emergency Kit), 1 DOSE INJ UD Guaifenesin (Mucinex Maximum Strength), 1,200 MG PO BID Insulin Aspart (Novolog Flexpen), 83 UNITS SQ QAM Insulin Aspart (Novolog Flexpen), 80 UNITS SQ QPM Insulin Aspart (Novolog Flexpen), 46 UNITS SQ DAILY Insulin Glargine (Lantus Solostar), 80 UNITS SC QPM Insulin Glargine (Lantus Solostar), 83 UNITS SC QAM Ipratropium-Albuterol (Duoneb), 1 TREATMENT INH Q4H Isosorbide Mononitrate (Isosorbide Mononitrate ER), 30 MG PO DAILY Latanoprost (Xalatan 0.005% Oph Vanessa), 1 DROPS OP HS Lisinopril (Zestril), 10 MG PO DAILY Magnesium Oxide (Mag-Ox), 400 MG PO BID Metolazone (Metolazone), 5 MG PO QAM Metoprolol Tartrate (Lopressor), 25 MG PO BID Multivitamins/Minerals (Mvi With Minerals), 1 TAB PO DAILY Nitroglycerin (Nitrostat), 1 TAB SL UD Potassium Chloride (Klor-Con M20), 60 MEQ PO TIDM Rivaroxaban (Xarelto), 20 MG PO DAILY Spironolactone (Aldactone), 25 MG PO BID Scheduled PRN Albuterol Hfa (Ventolin Hfa), 1 PUFFS INH QID PRN for SOB/Wheezing Lorazepam (Lorazepam), 1 MG PO QID PRN for Anxiety Tramadol (Ultram), 50 MG PO Q8H PRN for Pain Allergies Coded Allergies: [place] (Verified Allergy, Severe, Difficulty breathing, 03/18/17) Sodium Hypochlorite (Verified Allergy, Unknown, HIVES AND RESPIRATORY DIFFICULTY FROM CLOROX, 03/18/17) Physical Exam Vital Signs Date Time Temp Pulse Resp B/P (MAP) Pulse Ox O2 Delivery O2 Flow Rate FiO2 03/18/17 13:29 77 22 123/56 03/18/17 12:24 91 03/18/17 12:15 72 16 21 Trach Collar 03/18/17 11:23 36.7 85 24 123/70 95 Room Air Physical Exam GENERAL: Patient is a morbidly obese male. Trach in place. HEAD: Normocephalic atraumatic EYES: Ocular movements intact pupils equal and react to light OROPHARYNX mucous membranes are moist no exudates present no erythema or edema present NECK: Supple no nuchal rigidity CHEST: Good equal expansion LUNGS: Bilateral wheezing. CARDIAC: Normal S1 and S2 ABDOMEN: Soft nontender no guarding BACK: No CVA tenderness EXTREMITIES: No pain upon palpation normal muscle strength in all groups no clubbing cyanosis or edema NEURO: Patient is following commands and answering questions appropriately. Alert and oriented x3 Cranial Nerves 2-12 grossly intact Medical Decision & Procedures ER Provider Diagnostic Interpretation: X-ray results as stated below per interpretation by me and the radiologist: CHEST ONE VIEW PORTABLE CLINICAL HISTORY: 62 years-old Male presenting with CHEST PAIN. TECHNIQUE: Portable upright AP view of the chest was obtained. COMPARISON: 11/15/2016. FINDINGS: Right upper PICC has been removed. Tracheostomy tube and median sternotomy wires remain in place. Persistent prominence of the cardiomediastinal silhouette. Vague opacity in the left mid lung is increased from prior. Density along the left lateral pleura may indicate loculated effusion or pleural thickening unchanged from prior. Osseous structures normal. Upper abdomen normal. IMPRESSION: 1. Persistent cardiomegaly. Prominence of the mediastinal silhouette may in part be secondary to mediastinal lipomatosis. 2. Increased left mid lung opacity, possibly atelectasis. 3. Persistent left midlung loculated effusion or pleural thickening. This likely correlates to calcified pleural plaque evident on CT indicating prior asbestos exposure. Electronically signed by: Ben Hurd M.D. 03/18/2017 11:58 AM Dictated Date/Time: 03/18/2017 11:55 AM Laboratory Results 03/18/17 11:58 Red Blood Count 4.54, Mean Corpuscular Volume 86.3, Mean Corpuscular Hemoglobin 29.3, Mean Corpuscular Hemoglobin Concent 33.9, Mean Platelet Volume 11.0, Neutrophils (%) (Auto) 79.9, Lymphocytes (%) (Auto) 11.3, Monocytes (%) (Auto) 7.1, Eosinophils (%) (Auto) 0.8, Basophils (%) (Auto) 0.2, Neutrophils # (Auto) 8.59, Lymphocytes # (Auto) 1.22, Monocytes # (Auto) 0.77, Eosinophils # (Auto) 0.09, Basophils # (Auto) 0.02 Test 03/18/17 11:58 White Blood Count 10.77 K/uL (4.8-10.8) Red Blood Count 4.54 M/uL (4.7-6.1) Hemoglobin 13.3 g/dL (14.0-18.0) Hematocrit 39.2 % (42-52) Mean Corpuscular Volume 86.3 fL (80-100) Mean Corpuscular Hemoglobin 29.3 pg (25-34) Mean Corpuscular Hemoglobin Concent 33.9 g/dl (32-36) Platelet Count 177 K/uL (130-400) Mean Platelet Volume 11.0 fL (7.4-10.4) Neutrophils (%) (Auto) 79.9 % Lymphocytes (%) (Auto) 11.3 % Monocytes (%) (Auto) 7.1 % Eosinophils (%) (Auto) 0.8 % Basophils (%) (Auto) 0.2 % Neutrophils # (Auto) 8.59 K/uL (1.4-6.5) Lymphocytes # (Auto) 1.22 K/uL (1.2-3.4) Monocytes # (Auto) 0.77 K/uL (0.11-0.59) Eosinophils # (Auto) 0.09 K/uL (0-0.5) Basophils # (Auto) 0.02 K/uL (0-0.2) RDW Standard Deviation 44.2 fL (36.4-46.3) RDW Coefficient of Variation 14.1 % (11.5-14.5) Immature Granulocyte % (Auto) 0.7 % Immature Granulocyte # (Auto) 0.08 K/uL (0.00-0.02) Prothrombin Time 13.0 SECONDS (9.0-12.0) Prothromb Time International Ratio 1.2 (0.9-1.1) Phosphorus Level 3.2 mg/dl (2.5-4.9) Total Bilirubin 0.7 mg/dl (0.2-1) Direct Bilirubin 0.3 mg/dl (0-0.2) Aspartate Amino Transf (AST/SGOT) 31 U/L (15-37) Alanine Aminotransferase (ALT/SGPT) 40 U/L (12-78) Alkaline Phosphatase 67 U/L (45-117) Total Creatine Kinase 96 U/L (39-308) Creatine Kinase MB 3.6 ng/ml (0.5-3.6) Creatine Kinase MB Ratio 3.8 (0-3.0) Troponin I 0.025 ng/ml (0-0.045) Pro-B-Type Natriuretic Peptide 335 pg/ml (0-900) Total Protein 7.0 gm/dl (6.4-8.2) Albumin 3.6 gm/dl (3.4-5.0) Lipase 159 U/L (73-393) Thyroid Stimulating Hormone (TSH) 3.260 uIu/ml (0.300-4.500) Random Cortisol 28.71 mcg/dl Labs reviewed by ED physician. Medications Administered Medications (Trade) Dose Ordered Sig/Saige Route Start Time Stop Time Status Last Admin Dose Admin Albuterol/ Ipratropium (Duoneb) 12 ml ONE ONCE INH 03/18/17 11:45 03/18/17 11:46 DC 03/18/17 12:13 12 ML Magnesium Sulfate (Magnesium Sulfate) 1 gm NOW STAT IV 03/18/17 12:56 03/18/17 12:57 DC 03/18/17 13:28 1 GM Lorazepam (Ativan Tab) 1 mg QID PRN PO 03/18/17 14:15 04/17/17 14:14 03/18/17 22:02 1 MG Tramadol HCl (Ultram Tab) 50 mg Q8H PRN PO 03/18/17 14:15 04/17/17 14:14 03/19/17 00:40 50 MG ECG Indication: weakness Rate (beats per minute): 80 Rhythm: atrial fibrillation Findings: no acute ischemic change, no ectopy, other (old anterior/lateral infarcts ) ED Course 1139: Past medical records reviewed. The patient was evaluated in room B2. A complete history and physical examination was performed. 1145: Ordered Duoneb 12 ml INH. 1253: I went to check on the patient and the patient to up to go to the bathroom and collapsed. I assisted him from getting up. 1256: Ordered Magnesium Sulfate 1 gm IV. 1310: I discussed the patient's case with Dr. Fink, he has agreed to evaluate the patient for further management and care. 1430: Upon reexamination the patient is resting. I discussed results and treatment plan with the patient. He verbalizes agreement and understanding. I spoke with Dr. Fink from the [facility] Hospitalist Service. The patient will be evaluated for further management. Medical Decision Differential diagnosis: Etiologies such as infections, reactive airway disease, pneumonia, pneumothorax , COPD, CHF, cardiac ischemia, pulmonary embolism, musculoskeletal, gastrointestinal, as well as others were entertained. This is a 62-year-old male who was sent into the emergency department for his magnesium as well as his surgery levels. The patient has a trach in place and is wheezing on examination. Therefore he was given an hour-long breathing treatment. His sodium was found to be 128 therefore I did discuss the case with the hospitalist service. The patient was told during for help to go to the bathroom however he did not and fell on the ground. He was noncompliant with orders had to be lifted up off the ground by staff. Medication Reconcilliation Current Medication List: was personally reviewed by me Blood Pressure Screening Patient's blood pressure: Normal blood pressure Consults Time Called: 1230 Consulting Physician: Aury Fink- [facility] Returned Call: 1310 I discussed the patient's case with Dr. Fink, he has agreed to evaluate the patient for further management and care. Impression Primary Impression: Hyponatremia Scribe Attestation The scribe's documentation has been prepared under my direction and personally reviewed by me in its entirety. I confirm that the note above accurately reflects all work, treatment, procedures, and medical decision making performed by me. Departure Information Dispostion Being Evaluated By Hospitalist Referrals Christofer Hanley DO (PCP) Patient Instructions My [facility]
[2017-03-18] MEDS ORDERED: INSDGIPEN SC ×2 (11:52→11:55)
[2017-03-18] MEDS ORDERED: TRAM-10 PO (11:52)
[2017-03-18] MEDS ORDERED: SYMIN160 INH (11:52)
[2017-03-18] MEDS ORDERED: NVLGIPEN SQ (11:55)
[2017-03-18] MEDS ORDERED: NVLGI/PEN SQ ×2 (11:55)
[2017-03-18] MEDS ORDERED: GUAI1TAB69 PO (11:55)
[2017-03-18] MEDS ORDERED: BACI500O11 TOP (11:55)
--- NOTE | 2017-03-18 11:59 | DIAGNOSTIC IMAGING REPORT ---
CHEST ONE VIEW PORTABLE CLINICAL HISTORY: 62 years-old Male presenting with CHEST PAIN. TECHNIQUE: Portable upright AP view of the chest was obtained. COMPARISON: 11/15/2016. FINDINGS: Right upper PICC has been removed. Tracheostomy tube and median sternotomy wires remain in place. Persistent prominence of the cardiomediastinal silhouette. Vague opacity in the left mid lung is increased from prior. Density along the left lateral pleura may indicate loculated effusion or pleural thickening unchanged from prior. Osseous structures normal. Upper abdomen normal. IMPRESSION: 1. Persistent cardiomegaly. Prominence of the mediastinal silhouette may in part be secondary to mediastinal lipomatosis. 2. Increased left mid lung opacity, possibly atelectasis. 3. Persistent left midlung loculated effusion or pleural thickening. This likely correlates to calcified pleural plaque evident on CT indicating prior asbestos exposure. Electronically signed by: Ben Hurd M.D. 03/18/2017 11:58 AM Dictated Date/Time: 03/18/2017 11:55 AM
[2017-03-18 12:15] VITALS: PULSE 72; O2SAT 21
[2017-03-18 12:17] LABS: BASO % 0.2 %; BASO ABS # 0.02 K/uL (0-0.2); COMPLETE YES; EOS % 0.8 %; HEMATOCRIT 39.2 % (42-52); IG% 0.7 %; LYMPH % 11.3 %; LYMPH ABS # 1.22 K/uL (1.2-3.4); MEAN CELL VOLUME 86.3 fL (80-100); MEAN CORPUSCULAR HEMOGLOBIN 29.3 pg (25-34); MEAN CORPUSCULAR HGB CONC 33.9 g/dl (32-36); MONO % 7.1 %; NEUT % 79.9 %; PLATELET COUNT 177 K/uL (130-400); RED BLOOD COUNT 4.54 M/uL (4.7-6.1); WHITE BLOOD COUNT 10.77 K/uL (4.8-10.8)
[2017-03-18 12:36] LABS: INR 1.2 (0.9-1.1)
[2017-03-18 12:45] LABS: BUN/CREATININE RATIO 17.2 (10-20); CREATININE 0.81 mg/dl (0.60-1.40); MAGNESIUM 1.3 mg/dl (1.8-2.4); POTASSIUM 3.9 mmol/L (3.5-5.1)
[2017-03-18 12:48] LABS: CKMB/CK RATIO 3.8 (0-3.0)
[2017-03-18] MEDS ORDERED: MAGNESIUM SULFATE 1GM / D5W 1 GM BAG IV STA (12:56)
[2017-03-18] MEDS ORDERED: ENOXAPARIN 40 MG/0.4 ML SYR SQ SCH (14:15)
[2017-03-18] MEDS ORDERED: ALBUTEROL HFA 8 GM INHALER INH PRN (14:15)
[2017-03-18] MEDS ORDERED: NITROGLYCERIN 0.4 MG SL PER TAB CHARGE SL SCH (14:15)
[2017-03-18] MEDS ORDERED: ONDANSETRON INJ 2 MG/ML 2 ML VIAL IV PRN (14:15)
[2017-03-18] MEDS ORDERED: ATOR80TA PO (14:17)
[2017-03-18 15:30] VITALS: BP 146/81; PULSE 77; TEMP 36.6; O2SAT 95; Ht 182.9 cm; Wt 203.3 kg
[2017-03-18] MEDS ORDERED: GLUCAGON FOR INJ 1 MG VIAL SQ PRN (15:30)
[2017-03-18] MEDS ORDERED: GLUCOSE 40% GEL 15 GM TUBE PO PRN (15:30)
[2017-03-18] MEDS ORDERED: GLUCOSE 10 TABS/TUBE PO PRN (15:30)
[2017-03-18] MEDS ORDERED: DEXTROSE 50% 50 ML SYR IV PRN (15:30)
[2017-03-18] MEDS ORDERED: LATA0.5S OP (18:19)
--- NOTE | 2017-03-18 18:25 | History and Physical ---
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 He also reports a foul smelling, yellow/green mucous which is produced with cough which has been going on x 2.5 weeks. He was given Levaquin 750 mg yesterday but had not yet started it. The patient reports that he has been extremely fatigued since being initiated on Bumex last November when he was admitted for a CHF exacerbation. He also notes that due to his fatigue, he's sleeping about 18 hours per day, and this has been going on for some time now. He also notes he's unable to participate in hunting and fishing like he used to, and can't play or get real involved with his grandchildren due to all his medical issues. The patient notes that while here in the ER, he attempted to get up and use the restroom however fell due to his leg falling asleep. He denies any injury, LOC , lightheadedness or dizziness. He reports his dry weight is about 440-450 lbs , but that he hasn't weighed himself in about 1.5 months. He has been taking all medications as instructed. Here in the ED, magnesium was found to be low at 1.3 and replaced intravenously. Sodium is 128, however appears to be chronically low. His EKG appears unchanged. And CXR shows a left mid lung opacity, possible atelectasis. Persistent left midlung loculated effusion or pleural thickening. Past Medical/Surgical History Medical Problems: (1) COPD (chronic obstructive pulmonary disease) Status: Chronic (2) Diabetes Status: Chronic (3) Hyperlipidemia Status: Chronic (4) Morbid obesity Status: Chronic Surgical Problems: (1) Tracheostomy in place Status: Chronic Family History Diabetes mellitus Heart disease Hypertension Social History Smoking Status: Former Smoker Drug Use: none Marital Status: Housing status: lives with family Occupational Status: unemployed Multi-Drug Resistant Organisms History of MDRO: Yes Type of MDRO: MRSA Allergies Coded Allergies: [place] (Verified Allergy, Severe, Difficulty breathing, 03/18/17) Sodium Hypochlorite (Verified Allergy, Unknown, HIVES AND RESPIRATORY DIFFICULTY FROM CLOROX, 03/18/17) Home Medications Scheduled Aspirin (Aspirin 81), 81 MG PO DAILY Atorvastatin (Lipitor), 80 MG PO DAILY Atorvastatin Calcium (Lipitor), 1 TAB PO DAILY Bacitracin (Topical) (Bacitracin), 1 APPLN TOP DAILY Beclomethasone Dipropionate (N (Qnasl), 1 SPRY SIMBA DAILY Budesonide (Pulmicort Respules 0.5MG/2ML), 2 ML INH BID Budesonide/Formoterol Fumarate (Symbicort 160/4.5 Inhaler ), 1 PUFFS INH BID Bumetanide (Bumetanide), 2 MG PO QAM Desloratadine (Clarinex), 5 MG PO DAILY Diltiazem HCl (Diltiazem HCl ER), 120 MG PO QAM Dorzolamide Hcl (Trusopt Oph), 1 DROPS OP BID Fish Oil ([place]-3), 1 CAP PO DAILY Glucagon (Glucagon Emergency Kit), 1 DOSE INJ UD Guaifenesin (Mucinex Maximum Strength), 1,200 MG PO BID Insulin Aspart (Novolog Flexpen), 83 UNITS SQ QAM Insulin Aspart (Novolog Flexpen), 80 UNITS SQ QPM Insulin Aspart (Novolog Flexpen), 46 UNITS SQ DAILY Insulin Glargine (Lantus Solostar), 80 UNITS SC QPM Insulin Glargine (Lantus Solostar), 83 UNITS SC QAM Ipratropium-Albuterol (Duoneb), 1 TREATMENT INH Q4H Isosorbide Mononitrate (Isosorbide Mononitrate ER), 30 MG PO DAILY Latanoprost (Xalatan 0.005% Oph Vanessa), 1 DROPS OP HS Lisinopril (Zestril), 10 MG PO DAILY Magnesium Oxide (Mag-Ox), 400 MG PO BID Metolazone (Metolazone), 5 MG PO QAM Metoprolol Tartrate (Lopressor), 25 MG PO BID Multivitamins/Minerals (Mvi With Minerals), 1 TAB PO DAILY Nitroglycerin (Nitrostat), 1 TAB SL UD Potassium Chloride (Klor-Con M20), 60 MEQ PO TIDM Rivaroxaban (Xarelto), 20 MG PO DAILY Spironolactone (Aldactone), 25 MG PO BID Scheduled PRN Albuterol Hfa (Ventolin Hfa), 1 PUFFS INH QID PRN for SOB/Wheezing Lorazepam (Lorazepam), 1 MG PO QID PRN for Anxiety Tramadol (Ultram), 50 MG PO Q8H PRN for Pain Review of Systems Constitutional: + chills, + sweats, + fatigue, No fever, No weight loss Eyes: No redness, No diplopia ENT: No trouble swallowing Respiratory: + cough, + sputum, + hemoptysis (occasionally through the trache) , No shortness of breath, No dyspnea on exertion, No dyspnea at rest Cardiovascular: No chest pain, No edema, No palpitations Abdomen: No pain, No nausea, No vomiting, No diarrhea Musculoskeletal: No joint pain, No swelling Neurologic: No memory loss, No numbness/tingling, No balance problems Psychiatric: + depression symptoms, + anxiety Endocrine: + fatigue Integumentary: No rash, No itch, No new/changing skin lesions Physical Exam Vital Signs Date Time Temp Pulse Resp B/P (MAP) Pulse Ox O2 Delivery O2 Flow Rate FiO2 03/18/17 13:29 77 22 123/56 03/18/17 12:24 91 03/18/17 12:15 72 16 21 Trach Collar 03/18/17 11:23 36.7 85 24 123/70 95 Room Air General Appearance: WD/WN, no apparent distress, + pertinent finding (morbidly obese) Head: normocephalic, atraumatic Eyes: PERRL, EOMI ENT: hearing grossly normal, pharynx normal Neck: supple, thyroid normal, + pertinent finding (+trache in place, + yellow/ green mucous on inner cannula) Respiratory/Chest: chest non-tender, lungs clear, no respiratory distress, no accessory muscle use Cardiovascular: regular rate, rhythm, no murmur Abdomen/GI: normal bowel sounds, non tender, soft Back: normal inspection Extremities/Musculoskelatal: no calf tenderness, no pedal edema, + pertinent finding (chronic venous stasis changes. + dull erythema of the LLE which is chronic. + Dry and flaking skin on BLE. No rash.) Neurologic/Psych: alert, normal mood/affect, oriented x 3 Skin: normal color, warm/dry Diagnostics Laboratory Results Results Past 24 Hours Test 03/18/17 11:58 03/18/17 14:11 Range/Units White Blood Count 10.77 4.8-10.8 K/uL Red Blood Count 4.54 4.7-6.1 M/uL Hemoglobin 13.3 14.0-18.0 g/dL Hematocrit 39.2 42-52 % Mean Corpuscular Volume 86.3 80-100 fL Mean Corpuscular Hemoglobin 29.3 25-34 pg Mean Corpuscular Hemoglobin Concent 33.9 32-36 g/dl Platelet Count 177 130-400 K/uL Mean Platelet Volume 11.0 7.4-10.4 fL Neutrophils (%) (Auto) 79.9 % Lymphocytes (%) (Auto) 11.3 % Monocytes (%) (Auto) 7.1 % Eosinophils (%) (Auto) 0.8 % Basophils (%) (Auto) 0.2 % Neutrophils # (Auto) 8.59 1.4-6.5 K/uL Lymphocytes # (Auto) 1.22 1.2-3.4 K/uL Monocytes # (Auto) 0.77 0.11-0.59 K/uL Eosinophils # (Auto) 0.09 0-0.5 K/uL Basophils # (Auto) 0.02 0-0.2 K/uL RDW Standard Deviation 44.2 36.4-46.3 fL RDW Coefficient of Variation 14.1 11.5-14.5 % Immature Granulocyte % (Auto) 0.7 % Immature Granulocyte # (Auto) 0.08 0.00-0.02 K/uL Prothrombin Time 13.0 9.0-12.0 SECONDS Prothromb Time International Ratio 1.2 0.9-1.1 Sodium Level 128 136-145 mmol/L Potassium Level 3.9 3.5-5.1 mmol/L Chloride Level 89 98-107 mmol/L Carbon Dioxide Level 30 21-32 mmol/L Anion Gap 9.0 3-11 mmol/L Blood Urea Nitrogen 14 7-18 mg/dl Creatinine 0.81 0.60-1.40 mg/dl Est Creatinine Clear Calc Drug Dose 169.8 ml/min Estimated GFR () 110.4 Estimated GFR (Non- 95.3 BUN/Creatinine Ratio 17.2 10-20 Random Glucose 159 70-99 mg/dl Calcium Level 9.0 8.5-10.1 mg/dl Phosphorus Level 3.2 2.5-4.9 mg/dl Magnesium Level 1.3 1.8-2.4 mg/dl Total Bilirubin 0.7 0.2-1 mg/dl Direct Bilirubin 0.3 0-0.2 mg/dl Aspartate Amino Transf (AST/SGOT) 31 15-37 U/L Alanine Aminotransferase (ALT/SGPT) 40 12-78 U/L Alkaline Phosphatase 67 45-117 U/L Total Creatine Kinase 96 39-308 U/L Creatine Kinase MB 3.6 0.5-3.6 ng/ml Creatine Kinase MB Ratio 3.8 0-3.0 Troponin I 0.025 0-0.045 ng/ml Pro-B-Type Natriuretic Peptide 335 0-900 pg/ml Total Protein 7.0 6.4-8.2 gm/dl Albumin 3.6 3.4-5.0 gm/dl Lipase 159 73-393 U/L Diagnostic Radiology CHEST ONE VIEW PORTABLE CLINICAL HISTORY: 62 years-old Male presenting with CHEST PAIN. TECHNIQUE: Portable upright AP view of the chest was obtained. COMPARISON: 11/15/2016. FINDINGS: Right upper PICC has been removed. Tracheostomy tube and median sternotomy wires remain in place. Persistent prominence of the cardiomediastinal silhouette. Vague opacity in the left mid lung is increased from prior. Density along the left lateral pleura may indicate loculated effusion or pleural thickening unchanged from prior. Osseous structures normal. Upper abdomen normal. IMPRESSION: 1. Persistent cardiomegaly. Prominence of the mediastinal silhouette may in part be secondary to mediastinal lipomatosis. 2. Increased left mid lung opacity, possibly atelectasis. 3. Persistent left midlung loculated effusion or pleural thickening. This likely correlates to calcified pleural plaque evident on CT indicating prior asbestos exposure. Electronically signed by: Ben Hurd M.D. 03/18/2017 11:58 AM Dictated Date/Time: 03/18/2017 11:55 AM The status of this report is Signed. EKG Vent. 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 Hyponatremia - Admit to med/surg - Appears that hyponatremia is chronic, at least for past year. This is likely due to the amount of diuretics the patient is on. - Will check a urine sodium, urine Osmo, just to rule out other intrinsic causing factors - Will continue bumex and hold metalozone in the setting of hyponatremia CHF, chronic diastolic Core pulmonale - Appears to be euvolemic at this time without peripheral edema, no JVD, breath sounds are clear - May need to discuss with cardiology regarding attempting to decrease the amount of diuretics the patient is on. - Continue Bumex and hold metalozone as above DM II - Pt requires large volumes of insulin - Will continue him on his home regimen of Lantus 83 U QAM, 80 U QPM, and Novolog 83 U Q AM, 46 U at lunch, and 80 U QPM. Chronic ALLIE with tracheostomy - Will continue Levaquin 750 mg daily x 7 days as per outpatient regimen, he has not yet started this abx tx. - Will check a noc ox test tonight with O2 ( 6L with trache) tonight to make sure the pt is not hypoxic on his normal O2 requirement. - Continue duonebs Fall in ER - No sustained injuries warranting imaging. Pt denies any pain, LOC, trauma. If develops pain would then consider imaging. Atrial fibrillation - Continue xarelto 20 mg daily DVT ppx: Lovenox sub q, SCDs CODE STATUS: FULL CODE Disposition: From home, discharge when medically stable Level of Care Med/Surg Advanced Directives Existing Advance Directive: Yes Existing Living Will: Yes Existing Power of Tableau Lead: Yes Existing Health Care Proxy: Yes Resuscitation Status FULL RESUSCITATION VTE Prophylaxis VTE Risk Assessment Done? Y/N: Yes Risk Level: Low Given or contraindicated: Enoxaparin (Lovenox)SQ, SCD's Note Attending Admission Note & Attestation: Pt seen/examined, chart reviewed, care plan d/w PA Savanah Washington. I agree w/ the jerez components of her admission documentation. 62yo male with chronic diastolic CHF/cor pulmonale, morbid obesity, tracheostomy status 2nd to ALLIE with night-time O2 use, T2DM, COPD - presenting after routine labs yesterday showed Na <130 and low magnesium. He was seen in the pulmonary office yesterday in [place] where he had these labs drawn. During that same visit the pulmonary PA placed him on levaquin due to reports of foul-smelling sputum via his trach. The patient denies, however, any CHILEL or sob beyond his typical baseline. His main complaint actually is that of severe fatigue for months, sleeping 12-15 + hours/day. PMH, PSH, allergies, meds, sochx, famhx, ros - reviewed vitals stable no fever gen - NAD, morbidly obese trach - mild purulence seen neck - no JVD heart - irregular, s1, s2 lungs - scant end-exp wheeze b/l, no rales, no distress abd - obese, soft, BS+ ext - 1+ edema b/l, stasis changes b/l A/P: 1. hyponatremia - this is chronic going back to 2016 with very few readings > 135. This is likely due to chronic diuretic therapy especially his metazolone. Check serum osm, urine osm, urine Na but readings will not be that reliable due to the chronic diuretic use. Agree w/ holding metazolone and allowing Na level to equilibrate. 2. hypomagnesemia - received 1 gram mag sulfate in ER; give 2 more grams for total of 3. Mag level in am. 3. fatigue - this could be from any number of processes. For start would check an overnight oximetry study ON his home O2 amount to ensure that the 6 L he reports using his sufficient to maintain normal O2 saturations with sleep. If not then this could be contributing. Agree with TSH, cortisol, etc. 4. COPD with possible early exacerbation - defer on steroids, levaquin for now , supportive care. 5. ALLIE - chinmay MCCRACKEN MD
[2017-03-18] MEDS ORDERED: NTRGSL/4 SL (18:44)
[2017-03-18] MEDS ORDERED: IPRASOL4 INH (18:44)
[2017-03-18] MEDS ORDERED: RIVA1TAB4 PO (18:44)
[2017-03-18] MEDS ORDERED: ATV1 PO (18:44)
[2017-03-18] MEDS ORDERED: PLMINSR5 INH (18:44)
[2017-03-18] MEDS ORDERED: IMDSR/30 PO (19:03)
[2017-03-18] MEDS: INSULIN ASPART 100 UNITS/ML VIAL SQ SCH (19:05)
[2017-03-18] MEDS: LEVOFLOXACIN 750 MG TAB PO SCH (19:06)
[2017-03-18] MEDS: DORZOLAMIDE HCL 2% OPH SOLN 10 ML BTL OP SCH (19:07)
[2017-03-18] MEDS: BUDESONIDE/FORMOTEROL FUMARATE 160/4.5 60 PUFFS/INHALER INH SCH (19:08)
[2017-03-18] MEDS: POTASSIUM CHLORIDE 20 MEQ TABCR PO SCH (19:09)
[2017-03-18] MEDS: METOPROLOL TARTRATE 25 MG TAB PO SCH (19:10)
[2017-03-18] MEDS: LATANOPROST 0.005% OP SOLN 2.5 ML BTL OP SCH (19:10)
[2017-03-18] MEDS: SPIRONOLACTONE 25 MG TAB PO SCH (19:10)
[2017-03-18] MEDS: MAGNESIUM OXIDE 400 MG TAB PO SCH (19:11)
[2017-03-18] MEDS: BUDESONIDE 0.5 MG/2 ML VIAL (PULMICORT) INH SCH (19:19)
[2017-03-18 19:21] VITALS: PULSE 93; O2SAT 95
[2017-03-18] MEDS: ALBUT/IPRATROP 3MG/0.5MG NEB 3 ML VIAL INH SCH (19:21)
[2017-03-18] MEDS ORDERED: MAGN400T6 PO (19:53)
[2017-03-18] MEDS: INSULIN GLARGINE SC SCH (21:53)
[2017-03-18] MEDS: LORAZEPAM 1 MG TAB PO PRN (22:02)
[2017-03-18] MEDS: MAGNESIUM SULFATE 1GM / D5W 1 GM in PREMIXED IN D5W 100 ML IV SCH ×2 (22:03→23:29)
[2017-03-18] MEDS: TRAMADOL HCL 50 MG TAB PO PRN (22:03)
[2017-03-18] MEDS ORDERED: VNTHFA/IN INH (22:30)
[2017-03-18] MEDS ORDERED: DORZ2SOL17 OP (23:40)
[2017-03-18 23:49] VITALS: BP 116/69; PULSE 73; TEMP 36.8; O2SAT 95
[2017-03-19] VITALS (8 sets, daily range): BP systolic 76–136; BP diastolic 38–77; PULSE 73–96; TEMP 36.7–36.9; O2SAT 92–97
[2017-03-19] MEDS ORDERED: NURSING VERBAL MED ORDER ONE ×2 (00:15→09:15)
[2017-03-19] MEDS: TRAMADOL HCL 50 MG TAB PO PRN ×3 (00:40→22:13)
[2017-03-19] MEDS ORDERED: TRAMADOL HCL 50 MG TAB PO ONE (01:00)
[2017-03-19 06:33] LABS: BUN/CREATININE RATIO 19.4 (10-20); CALCIUM 8.7 mg/dl (8.5-10.1); CREATININE 0.76 mg/dl (0.60-1.40); MAGNESIUM 1.9 mg/dl (1.8-2.4); POTASSIUM 3.8 mmol/L (3.5-5.1)
[2017-03-19] MEDS: BUDESONIDE 0.5 MG/2 ML VIAL (PULMICORT) INH SCH ×2 (07:32→18:58)
[2017-03-19] MEDS: ALBUT/IPRATROP 3MG/0.5MG NEB 3 ML VIAL INH SCH ×4 (07:32→18:58)
[2017-03-19] MEDS: LORAZEPAM 1 MG TAB PO PRN ×2 (08:40→22:13)
[2017-03-19] MEDS: BUDESONIDE/FORMOTEROL FUMARATE 160/4.5 60 PUFFS/INHALER INH SCH ×2 (08:41→20:27)
[2017-03-19] MEDS: FLUTICASONE PROPIONATE NA SPR 16 GM BTL SCH (08:42)
[2017-03-19] MEDS: DORZOLAMIDE HCL 2% OPH SOLN 10 ML BTL OP SCH ×2 (08:43→20:27)
[2017-03-19] MEDS: BUMETANIDE 1 MG TAB PO SCH (08:45)
[2017-03-19] MEDS: DILTIAZEM HCL 120 MG ER CAP PO SCH (08:46)
[2017-03-19] MEDS: ISOSORBIDE MONONITRATE 30 MG TABCR PO SCH (08:46)
[2017-03-19] MEDS: ASPIRIN 81 MG ECTAB PO SCH (08:46)
[2017-03-19] MEDS: POTASSIUM CHLORIDE 20 MEQ TABCR PO SCH ×3 (08:47→16:55)
[2017-03-19] MEDS: METOPROLOL TARTRATE 25 MG TAB PO SCH ×2 (08:48→20:31)
[2017-03-19] MEDS: MAGNESIUM OXIDE 400 MG TAB PO SCH ×2 (08:48→20:32)
[2017-03-19] MEDS: ATORVASTATIN 40 MG TAB PO SCH (08:48)
[2017-03-19] MEDS: OMEGA-3 (PURIFIED FISH OIL) 1 GM CAP PO SCH (08:49)
[2017-03-19] MEDS: CEROVITE ADV FORMULA TAB PO SCH (08:49)
[2017-03-19] MEDS: SPIRONOLACTONE 25 MG TAB PO SCH ×2 (08:50→16:54)
[2017-03-19] MEDS: LISINOPRIL 10 MG TAB PO SCH (08:50)
[2017-03-19] MEDS: RIVAROXABAN 10 MG TAB PO SCH (08:50)
[2017-03-19] MEDS: INSULIN ASPART 100 UNITS/ML VIAL SQ SCH ×3 (08:56→18:26)
[2017-03-19] MEDS: INSULIN GLARGINE SC SCH ×2 (08:56→20:40)
[2017-03-19] MEDS ORDERED: EUCERIN CR 120 GM JAR EXT PRN (09:30)
[2017-03-19] MEDS: LEVOFLOXACIN 750 MG TAB PO SCH (12:32)
--- NOTE | 2017-03-19 19:54 | Progress Note ---
Subjective Date of Service: Mar 19, 2017. Subjective Pt evaluation today including: conversation w/ patient, conversation w/ family , physical exam, chart review, lab review, review of studies, review of inpatient medication list Report feeling tired, back pain , but is not new , otherwise no complaining Problem List Medical Problems: (1) Atrial fibrillation with rapid ventricular response Status: Acute (2) Back pain Status: Acute (3) Cellulitis Status: Acute (4) Cellulitis of right lower extremity Status: Acute (5) Congestive heart failure Status: Acute (6) Dyspnea Status: Acute (7) Failure of outpatient treatment Status: Acute (8) Hyperglycemia Status: Acute (9) Pneumonia Status: Acute (10) Pneumonia Status: Acute (11) Pneumonia Status: Acute (12) Respiratory distress Status: Acute (13) Shortness of breath Status: Acute (14) Tracheitis Status: Acute (15) Weight gain Status: Acute Review of Systems Constitutional: + weakness, + fatigue, No fever, No chills, No sweats, No weight loss, No problem reported Eyes: No worsening of vision, No eye pain, No redness, No discharge, No diplopia ENT: No hearing loss, No unusual epistaxis, No nasal symptoms, No sore throat, No tinnitus, No dental problems, No trouble swallowing Respiratory: No cough, No sputum, No wheezing, No shortness of breath, No dyspnea on exertion, No dyspnea at rest, No hemoptysis Cardiac: No chest pain, No orthopnea, No PND, No edema, No claudication, No palpitations Abdomen: No pain, No nausea, No vomiting, No diarrhea, No constipation Musculoskeletal: No joint pain, No muscle pain, No swelling, No calf pain Male : No dysuria, No urinary frequency, No incontinence, No nocturia more than once/night, No slowing stream, No hematuria Neurologic: No memory loss, No paralysis, No weakness, No numbness/tingling, No vertigo, No balance problems Psychiatric: No depression symptoms, No anhedonism, No anxiety, No insomnia, No substance abuse Heme: No abnormal bleeding/bruising, No clotting problems, No swollen lymph nodes, No night sweats Endo: No fatigue, No excessive thirst, No excessive urination Skin: + problem reported (lower extremity is very dry), No itch, No new/ changing skin lesions, No color change, No bleeding Objective Vital Signs Date Time Temp Pulse Resp B/P (MAP) Pulse Ox O2 Delivery O2 Flow Rate FiO2 03/19/17 19:03 86 20 97 Room Air 03/19/17 16:00 95 Trach Collar 03/19/17 15:52 36.9 73 20 76/38 (51) 95 Nasal Cannula 95/55 (68) 03/19/17 15:08 96 15 97 Room Air 03/19/17 11:54 80 19 97 Room Air 03/19/17 11:41 Room Air 03/19/17 07:32 84 18 96 Room Air 03/19/17 07:07 36.7 76 20 111/68 (82) 92 Room Air 03/19/17 00:00 Trach Collar 03/18/17 23:49 36.8 73 20 116/69 (85) 95 Room Air Physical Exam General Appearance: WD/WN, no apparent distress, + obese Eyes: normal inspection, PERRL, EOMI, sclerae normal ENT: normal ENT inspection, hearing grossly normal, pharynx normal, + pertinent finding (SP trach) Neck: supple, no adenopathy, thyroid normal, no JVD, no carotid bruits, trachea midline Respiratory/Chest: chest non-tender, normal breath sounds, no respiratory distress, no accessory muscle use, + decreased breath sounds Cardiovascular: regular rate, rhythm, no gallop, no JVD, no murmur Abdomen: normal bowel sounds, non tender, soft, no organomegaly, no pulsatile mass Extremities: normal range of motion, non-tender, normal inspection, no pedal edema, no calf tenderness, normal capillary refill, pelvis stable 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, no motor/sensory deficits, alert, normal mood/affect, oriented x 3 Skin: normal color, warm/dry, no rash, + pertinent finding (anterior chest wall and posterior middle back has well healing scar) Lymphatic: no adenopathy Laboratory Results Last 24 Hours Test 03/18/17 20:26 03/18/17 22:15 03/19/17 05:26 03/19/17 07:41 Bedside Glucose 177 mg/dl 107 mg/dl Urine Osmolality 597 mOms/kg Urine Random Sodium 34 mEq/L Sodium Level 130 mmol/L Potassium Level 3.8 mmol/L Chloride Level 92 mmol/L Carbon Dioxide Level 30 mmol/L Anion Gap 8.0 mmol/L Blood Urea Nitrogen 15 mg/dl Creatinine 0.76 mg/dl Est Creatinine Clear Calc Drug Dose 181.0 ml/min Estimated GFR () 113.3 Estimated GFR (Non- 97.8 BUN/Creatinine Ratio 19.4 Random Glucose 83 mg/dl Calcium Level 8.7 mg/dl Magnesium Level 1.9 mg/dl Vitamin B12 Level 498 pg/mL Test 03/19/17 11:29 03/19/17 16:20 03/19/17 19:28 Bedside Glucose 142 mg/dl 144 mg/dl 207 mg/dl Assessment and Plan 62 yo M admitted to hospital on 03/18/2017 after being seen in the pulmonary clinic by Tony Magana and was found to be hyponatremic. 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 likely due to chronic diuretic therapy especially his metazolone. Will follow-up labs of serum osm, urine osm, urine Na However and the labs readings will not be that reliable due to the chronic diuretic use. Agree w/ holding metazolone and allowing Na level to equilibrate. hypomagnesemia - received 1 gram mag sulfate in ER; give 2 more grams for total of 3. Mag level in am. fatigue - this could be from any number of processes. For start would check an overnight oximetry study ON his home O2 amount to ensure that the 6 L he reports using his sufficient to maintain normal O2 saturations with sleep. COPD with possible early exacerbation Continue defer on steroids Continue levaquin for now, supportive care. ALLIE - trach DM II, HTN, chronic diastolic CHF/cor pulmonale: Stable continue current care DVT prophylaxis is covered Continued [facility] stay due to: multiple IV medications needed Discharge planning: home
[2017-03-19] MEDS: LATANOPROST 0.005% OP SOLN 2.5 ML BTL OP SCH (20:32)
[2017-03-20] VITALS (10 sets, daily range): BP systolic 97–120; BP diastolic 62–75; PULSE 72–114; TEMP 36.4–36.8; O2SAT 94–100
[2017-03-20] MEDS: ALBUT/IPRATROP 3MG/0.5MG NEB 3 ML VIAL INH SCH ×4 (07:33→19:18)
[2017-03-20] MEDS: BUDESONIDE 0.5 MG/2 ML VIAL (PULMICORT) INH SCH ×2 (07:34→19:18)
[2017-03-20 07:54] LABS: BASO % 0.2 %; BASO ABS # 0.02 K/uL (0-0.2); COMPLETE YES; EOS % 0.6 %; HEMATOCRIT 36.3 % (42-52); IG% 0.5 %; LYMPH % 13.8 %; LYMPH ABS # 1.35 K/uL (1.2-3.4); MEAN CELL VOLUME 86.2 fL (80-100); MEAN CORPUSCULAR HEMOGLOBIN 28.5 pg (25-34); MEAN CORPUSCULAR HGB CONC 33.1 g/dl (32-36); MEAN PLATELET VOLUME 10.5 fL (7.4-10.4); MONO % 12.9 %; PLATELET COUNT 147 K/uL (130-400); RED BLOOD COUNT 4.21 M/uL (4.7-6.1); WHITE BLOOD COUNT 9.79 K/uL (4.8-10.8)
[2017-03-20] MEDS: METOPROLOL TARTRATE 25 MG TAB PO SCH ×2 (07:56→21:29)
[2017-03-20] MEDS: DILTIAZEM HCL 120 MG ER CAP PO SCH (07:56)
[2017-03-20 08:19] LABS: BUN/CREATININE RATIO 19.9 (10-20); CALCIUM 8.9 mg/dl (8.5-10.1); CREATININE 0.88 mg/dl (0.60-1.40); MAGNESIUM 1.7 mg/dl (1.8-2.4); POTASSIUM 4.2 mmol/L (3.5-5.1)
[2017-03-20] MEDS: DORZOLAMIDE HCL 2% OPH SOLN 10 ML BTL OP SCH ×2 (09:14→21:29)
[2017-03-20] MEDS: BUDESONIDE/FORMOTEROL FUMARATE 160/4.5 60 PUFFS/INHALER INH SCH ×2 (09:14→21:28)
[2017-03-20] MEDS: FLUTICASONE PROPIONATE NA SPR 16 GM BTL SCH (09:14)
[2017-03-20] MEDS: BUMETANIDE 1 MG TAB PO SCH (09:15)
[2017-03-20] MEDS: ASPIRIN 81 MG ECTAB PO SCH (09:15)
[2017-03-20] MEDS: ISOSORBIDE MONONITRATE 30 MG TABCR PO SCH (09:15)
[2017-03-20] MEDS: ATORVASTATIN 40 MG TAB PO SCH (09:16)
[2017-03-20] MEDS: OMEGA-3 (PURIFIED FISH OIL) 1 GM CAP PO SCH (09:16)
[2017-03-20] MEDS: POTASSIUM CHLORIDE 20 MEQ TABCR PO SCH ×3 (09:16→16:50)
[2017-03-20] MEDS: RIVAROXABAN 10 MG TAB PO SCH (09:16)
[2017-03-20] MEDS: SPIRONOLACTONE 25 MG TAB PO SCH ×2 (09:16→16:49)
[2017-03-20] MEDS: CEROVITE ADV FORMULA TAB PO SCH (09:16)
[2017-03-20] MEDS: LISINOPRIL 10 MG TAB PO SCH (09:17)
[2017-03-20] MEDS: INSULIN GLARGINE SC SCH ×2 (09:19→21:33)
[2017-03-20] MEDS: INSULIN ASPART 100 UNITS/ML VIAL SQ SCH ×3 (09:20→18:50)
--- NOTE | 2017-03-20 09:21 | Progress Note ---
Subjective Date of Service: Mar 20, 2017. Subjective Pt evaluation today including: conversation w/ patient, physical exam, chart review, lab review, review of studies, review of inpatient medication list Reported not sleep well, low back pain, radiation to left lower extremity, which is not new but seems getting worse Problem List Medical Problems: (1) Atrial fibrillation with rapid ventricular response Status: Acute (2) Back pain Status: Acute (3) Cellulitis Status: Acute (4) Cellulitis of right lower extremity Status: Acute (5) Congestive heart failure Status: Acute (6) Dyspnea Status: Acute (7) Failure of outpatient treatment Status: Acute (8) Hyperglycemia Status: Acute (9) Pneumonia Status: Acute (10) Pneumonia Status: Acute (11) Pneumonia Status: Acute (12) Respiratory distress Status: Acute (13) Shortness of breath Status: Acute (14) Tracheitis Status: Acute (15) Weight gain Status: Acute Review of Systems Constitutional: + weakness, + fatigue, No fever, No chills, No sweats, No weight loss, No problem reported Eyes: No worsening of vision, No eye pain, No redness, No discharge, No diplopia ENT: No hearing loss, No unusual epistaxis, No nasal symptoms, No sore throat, No tinnitus, No dental problems, No trouble swallowing Respiratory: No cough, No sputum, No wheezing, No shortness of breath, No dyspnea on exertion, No dyspnea at rest, No hemoptysis Cardiac: No chest pain, No orthopnea, No PND, No edema, No claudication, No palpitations Abdomen: No pain, No nausea, No vomiting, No diarrhea, No constipation Musculoskeletal: + see HPI, + joint pain, No muscle pain, No swelling, No calf pain Male : No dysuria, No urinary frequency, No incontinence, No nocturia more than once/night, No slowing stream, No hematuria Neurologic: No memory loss, No paralysis, No weakness, No numbness/tingling, No vertigo, No balance problems Psychiatric: No depression symptoms, No anhedonism, No anxiety, No insomnia, No substance abuse Heme: No abnormal bleeding/bruising, No clotting problems, No swollen lymph nodes, No night sweats Endo: No fatigue, No excessive thirst, No excessive urination Skin: No rash, No itch, No new/changing skin lesions, No color change, No bleeding Objective Vital Signs Date Time Temp Pulse Resp B/P (MAP) Pulse Ox O2 Delivery O2 Flow Rate FiO2 03/20/17 09:12 101 101/62 (75) 03/20/17 07:45 36.4 92 20 97/63 (74) 100 Room Air Free Flow/Blow[place] 03/20/17 07:34 77 20 96 Room Air 03/20/17 00:24 36.8 72 18 104/62 (76) 99 BiPAP 03/20/17 00:00 97 Nasal Cannula 2.0 CPAP Trach Collar 03/19/17 20:29 80 18 136/77 (96) Room Air 03/19/17 19:03 86 20 97 Room Air 03/19/17 16:00 95 Trach Collar 03/19/17 15:52 36.9 73 20 76/38 (51) 95 Nasal Cannula 95/55 (68) 03/19/17 15:08 96 15 97 Room Air 03/19/17 11:54 80 19 97 Room Air 03/19/17 11:41 Room Air Physical Exam General Appearance: WD/WN, no apparent distress, + obese Eyes: normal inspection, PERRL, EOMI, sclerae normal ENT: normal ENT inspection, hearing grossly normal, pharynx normal Neck: supple, no adenopathy, thyroid normal, no JVD, no carotid bruits, trachea midline Respiratory/Chest: chest non-tender, normal breath sounds, no respiratory distress, no accessory muscle use, + decreased breath sounds, + pertinent finding (trach in place) Cardiovascular: regular rate, rhythm, no edema, no gallop, no JVD, no murmur Abdomen: normal bowel sounds, non tender, soft, no organomegaly, no pulsatile mass Extremities: normal range of motion, non-tender, normal inspection, no pedal edema, no calf tenderness, normal capillary refill, pelvis stable Neurologic/Psychiatric: helper coordinator II-XII nml as tested, no motor/sensory deficits, alert, normal mood/affect, oriented x 3 Skin: normal color, warm/dry, no rash Lymphatic: no adenopathy Laboratory Results Last 24 Hours Test 03/19/17 11:29 03/19/17 16:20 03/19/17 19:28 03/20/17 07:25 Bedside Glucose 142 mg/dl 144 mg/dl 207 mg/dl 173 mg/dl Test 03/20/17 07:37 White Blood Count 9.79 K/uL Red Blood Count 4.21 M/uL Hemoglobin 12.0 g/dL Hematocrit 36.3 % Mean Corpuscular Volume 86.2 fL Mean Corpuscular Hemoglobin 28.5 pg Mean Corpuscular Hemoglobin Concent 33.1 g/dl Platelet Count 147 K/uL Mean Platelet Volume 10.5 fL Neutrophils (%) (Auto) 72.0 % Lymphocytes (%) (Auto) 13.8 % Monocytes (%) (Auto) 12.9 % Eosinophils (%) (Auto) 0.6 % Basophils (%) (Auto) 0.2 % Neutrophils # (Auto) 7.05 K/uL Lymphocytes # (Auto) 1.35 K/uL Monocytes # (Auto) 1.26 K/uL Eosinophils # (Auto) 0.06 K/uL Basophils # (Auto) 0.02 K/uL RDW Standard Deviation 45.7 fL RDW Coefficient of Variation 14.6 % Immature Granulocyte % (Auto) 0.5 % Immature Granulocyte # (Auto) 0.05 K/uL Sodium Level 129 mmol/L Potassium Level 4.2 mmol/L Chloride Level 94 mmol/L Carbon Dioxide Level 26 mmol/L Anion Gap 9.0 mmol/L Blood Urea Nitrogen 18 mg/dl Creatinine 0.88 mg/dl Est Creatinine Clear Calc Drug Dose 156.3 ml/min Estimated GFR () 106.7 Estimated GFR (Non- 92.1 BUN/Creatinine Ratio 19.9 Random Glucose 174 mg/dl Calcium Level 8.9 mg/dl Magnesium Level 1.7 mg/dl Assessment and Plan 62 yo M admitted to hospital on 03/18/2017 after being seen in the pulmonary clinic by Tony Magana and was found to be hyponatremic, stable PMHx of DM II, HTN, chronic diastolic CHF/cor pulmonale, COPD, 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 hypomagnesemia, it is from the same etiology Continue current Bumex, at sodium pill 1 g twice a day, will watch the sodium level, and discuss with patient and the risk and benefit Replace magnesium, increased mag oxide to 400 mg by mouth 3 times a day fatigue - this could be from any number of the above processes. For start would check an overnight oximetry study ON his home O2 amount to ensure that the 6 L he reports using his sufficient to maintain normal O2 saturations with sleep. COPD with possible early exacerbation, stable Continue defer on steroids Continue levaquin for now, supportive care. ALLIE - trach DM II, HTN, chronic diastolic CHF/cor pulmonale: Stable continue current care DVT prophylaxis is covered Discussed with patient about care plan, encourage out of bed and activity Continued [facility] stay due to: multiple IV medications needed Discharge planning: home
[2017-03-20] MEDS ORDERED: MAGNESIUM SULFATE 1GM / D5W 1 GM in PREMIXED IN D5W 100 ML IV ONE (09:30)
[2017-03-20] MEDS: LORAZEPAM 1 MG TAB PO PRN ×2 (09:33→21:34)
[2017-03-20] MEDS: TRAMADOL HCL 50 MG TAB PO PRN ×2 (09:33→21:34)
[2017-03-20] MEDS: LEVOFLOXACIN 750 MG TAB PO SCH (11:17)
[2017-03-20] MEDS ORDERED: NURSING VERBAL MED ORDER ONE (12:15)
[2017-03-20] MEDS: MAGNESIUM OXIDE 400 MG TAB PO SCH ×2 (12:41→21:30)
[2017-03-20] MEDS: TROLAMINE SALICYLATE 10% CRM 255 APPLN/85 GM TUBE EXT SCH ×2 (12:42→21:28)
[2017-03-20] MEDS: LATANOPROST 0.005% OP SOLN 2.5 ML BTL OP SCH (21:29)
[2017-03-20] MEDS: SODIUM CHLORIDE 1 GM TAB PO SCH (21:30)
[2017-03-21] VITALS (8 sets, daily range): BP systolic 122–149; BP diastolic 71–83; PULSE 72–107; TEMP 36.5–36.7; O2SAT 93–98
[2017-03-21] MEDS: ALBUT/IPRATROP 3MG/0.5MG NEB 3 ML VIAL INH SCH ×4 (07:16→18:55)
[2017-03-21] MEDS: BUDESONIDE 0.5 MG/2 ML VIAL (PULMICORT) INH SCH ×2 (07:21→18:54)
[2017-03-21 07:37] LABS: BASO % 0.3 %; BASO ABS # 0.03 K/uL (0-0.2); COMPLETE YES; EOS % 0.8 %; HEMATOCRIT 36.9 % (42-52); LYMPH % 15.2 %; LYMPH ABS # 1.55 K/uL (1.2-3.4); MEAN CORPUSCULAR HEMOGLOBIN 30.1 pg (25-34); MEAN PLATELET VOLUME 11.2 fL (7.4-10.4); MONO % 9.1 %; NEUT % 73.6 %; PLATELET COUNT 162 K/uL (130-400); RED BLOOD COUNT 4.29 M/uL (4.7-6.1); WHITE BLOOD COUNT 10.19 K/uL (4.8-10.8)
[2017-03-21] MEDS: TROLAMINE SALICYLATE 10% CRM 255 APPLN/85 GM TUBE EXT SCH ×4 (08:12→22:02)
[2017-03-21] MEDS: OMEGA-3 (PURIFIED FISH OIL) 1 GM CAP PO SCH (08:13)
[2017-03-21] MEDS: DILTIAZEM HCL 120 MG ER CAP PO SCH (08:13)
[2017-03-21] MEDS: SODIUM CHLORIDE 1 GM TAB PO SCH ×2 (08:13→22:04)
[2017-03-21] MEDS: BUMETANIDE 1 MG TAB PO SCH (08:13)
[2017-03-21] MEDS: BUDESONIDE/FORMOTEROL FUMARATE 160/4.5 60 PUFFS/INHALER INH SCH ×2 (08:13→22:02)
[2017-03-21] MEDS: DORZOLAMIDE HCL 2% OPH SOLN 10 ML BTL OP SCH ×2 (08:13→22:03)
[2017-03-21] MEDS: FLUTICASONE PROPIONATE NA SPR 16 GM BTL SCH (08:13)
[2017-03-21] MEDS: LISINOPRIL 10 MG TAB PO SCH (08:14)
[2017-03-21] MEDS: ISOSORBIDE MONONITRATE 30 MG TABCR PO SCH (08:14)
[2017-03-21] MEDS: ASPIRIN 81 MG ECTAB PO SCH (08:15)
[2017-03-21] MEDS: CEROVITE ADV FORMULA TAB PO SCH (08:15)
[2017-03-21] MEDS: SPIRONOLACTONE 25 MG TAB PO SCH ×2 (08:15→17:12)
[2017-03-21] MEDS: METOPROLOL TARTRATE 25 MG TAB PO SCH ×2 (08:15→22:04)
[2017-03-21] MEDS: POTASSIUM CHLORIDE 20 MEQ TABCR PO SCH ×3 (08:15→17:11)
[2017-03-21] MEDS: ATORVASTATIN 40 MG TAB PO SCH (08:15)
[2017-03-21] MEDS: MAGNESIUM OXIDE 400 MG TAB PO SCH ×3 (08:16→22:05)
[2017-03-21] MEDS: LORAZEPAM 1 MG TAB PO PRN ×2 (08:20→22:00)
[2017-03-21] MEDS: TRAMADOL HCL 50 MG TAB PO PRN ×2 (08:20→22:01)
[2017-03-21] MEDS: INSULIN GLARGINE SC SCH ×2 (08:31→22:08)
[2017-03-21] MEDS: INSULIN ASPART 100 UNITS/ML VIAL SQ SCH ×3 (08:31→18:36)
[2017-03-21 09:56] LABS: BLOOD UREA NITROGEN 18 mg/dl (7-18); BUN/CREATININE RATIO 20.3 (10-20); CALCIUM 8.9 mg/dl (8.5-10.1); CARBON DIOXIDE 23 mmol/L (21-32); CHLORIDE 96 mmol/L (98-107); CREATININE 0.88 mg/dl (0.60-1.40); GLUCOSE 273 mg/dl (70-99); SODIUM 129 mmol/L (136-145)
[2017-03-21] MEDS: RIVAROXABAN 10 MG TAB PO SCH (10:00)
[2017-03-21 10:39] LABS: MAGNESIUM 1.6 mg/dl (1.8-2.4); POTASSIUM 4.2 mmol/L (3.5-5.1)
[2017-03-21] MEDS: LEVOFLOXACIN 750 MG TAB PO SCH (12:58)
--- NOTE | 2017-03-21 14:13 | Progress Note ---
Subjective Date of Service: Mar 21, 2017. Subjective Pt evaluation today including: conversation w/ patient, physical exam, chart review, lab review, review of studies, conversation w/ internet sales consultant, review of inpatient medication list Sitting up in chair, feeling good, reported had good rest last night , nurse reported had drinking a lot of water Problem List Medical Problems: (1) Atrial fibrillation with rapid ventricular response Status: Acute (2) Back pain Status: Acute (3) Cellulitis Status: Acute (4) Cellulitis of right lower extremity Status: Acute (5) Congestive heart failure Status: Acute (6) Dyspnea Status: Acute (7) Failure of outpatient treatment Status: Acute (8) Hyperglycemia Status: Acute (9) Pneumonia Status: Acute (10) Pneumonia Status: Acute (11) Pneumonia Status: Acute (12) Respiratory distress Status: Acute (13) Shortness of breath Status: Acute (14) Tracheitis Status: Acute (15) Weight gain Status: Acute Review of Systems Constitutional: + weakness, + fatigue, No fever, No chills, No sweats, No weight loss, No problem reported Eyes: No worsening of vision, No eye pain, No redness, No discharge, No diplopia ENT: No hearing loss, No unusual epistaxis, No nasal symptoms, No sore throat, No tinnitus, No dental problems, No trouble swallowing Respiratory: No cough, No sputum, No wheezing, No shortness of breath, No dyspnea on exertion, No dyspnea at rest, No hemoptysis Cardiac: No chest pain, No orthopnea, No PND, No edema, No claudication, No palpitations Abdomen: No pain, No nausea, No vomiting, No diarrhea, No constipation Musculoskeletal: No joint pain, No muscle pain, No swelling, No calf pain Male : No dysuria, No urinary frequency, No incontinence, No nocturia more than once/night, No slowing stream, No hematuria Neurologic: No memory loss, No paralysis, No weakness, No numbness/tingling, No vertigo, No balance problems Psychiatric: No depression symptoms, No anhedonism, No anxiety, No insomnia, No substance abuse Heme: No abnormal bleeding/bruising, No clotting problems, No swollen lymph nodes, No night sweats Endo: No fatigue, No excessive thirst, No excessive urination Skin: + color change (chronic pigmentation in right lower extremity and foot which is not new), No rash, No itch, No new/changing skin lesions, No bleeding Objective Vital Signs Date Time Temp Pulse Resp B/P (MAP) Pulse Ox O2 Delivery O2 Flow Rate FiO2 03/21/17 11:20 87 20 94 Room Air 03/21/17 08:00 Room Air Trach Collar 03/21/17 07:21 107 20 96 Room Air 03/21/17 07:13 36.5 87 16 122/75 (91) 98 Trach Collar 03/21/17 00:01 36.7 80 18 149/83 (105) 98 Trach Collar 10.0 03/21/17 00:00 Trach Collar 03/20/17 19:18 96 20 94 Room Air 03/20/17 16:00 96 Room Air 2.0 03/20/17 15:52 98 20 96 Room Air 03/20/17 15:07 36.5 110 22 120/75 (90) 98 Room Air Physical Exam General Appearance: WD/WN, no apparent distress, + obese Eyes: normal inspection, PERRL, EOMI, sclerae normal ENT: normal ENT inspection, hearing grossly normal, pharynx normal Neck: supple, no adenopathy, thyroid normal, no JVD, no carotid bruits, trachea midline, + pertinent finding (SP trachelectomy local has low drainages , no skin color changes) Respiratory/Chest: chest non-tender, normal breath sounds, no respiratory distress, no accessory muscle use, + decreased breath sounds Cardiovascular: regular rate, rhythm, no edema, no gallop, no JVD, no murmur Abdomen: normal bowel sounds, non tender, soft, no organomegaly, no pulsatile mass Extremities: normal range of motion, normal inspection, no pedal edema, no calf tenderness, normal capillary refill, pelvis stable, + swelling (1-2+ edema , no open wound) Neurologic/Psychiatric: clinical quality assurance specialist II-XII nml as tested, no motor/sensory deficits, alert, normal mood/affect, oriented x 3 Skin: normal color, warm/dry, no rash Lymphatic: no adenopathy Laboratory Results Last 24 Hours Test 03/20/17 16:40 03/20/17 20:12 03/21/17 06:45 03/21/17 08:03 Bedside Glucose 126 mg/dl 189 mg/dl 179 mg/dl White Blood Count 10.19 K/uL Red Blood Count 4.29 M/uL Hemoglobin 12.9 g/dL Hematocrit 36.9 % Mean Corpuscular Volume 86.0 fL Mean Corpuscular Hemoglobin 30.1 pg Mean Corpuscular Hemoglobin Concent 35.0 g/dl Platelet Count 162 K/uL Mean Platelet Volume 11.2 fL Neutrophils (%) (Auto) 73.6 % Lymphocytes (%) (Auto) 15.2 % Monocytes (%) (Auto) 9.1 % Eosinophils (%) (Auto) 0.8 % Basophils (%) (Auto) 0.3 % Neutrophils # (Auto) 7.50 K/uL Lymphocytes # (Auto) 1.55 K/uL Monocytes # (Auto) 0.93 K/uL Eosinophils # (Auto) 0.08 K/uL Basophils # (Auto) 0.03 K/uL RDW Standard Deviation 46.8 fL RDW Coefficient of Variation 15.0 % Immature Granulocyte % (Auto) 1.0 % Immature Granulocyte # (Auto) 0.10 K/uL Test 03/21/17 08:57 03/21/17 10:11 03/21/17 11:55 Sodium Level 129 mmol/L Potassium Level mmol/L 4.2 mmol/L Chloride Level 96 mmol/L Carbon Dioxide Level 23 mmol/L Anion Gap 10.0 mmol/L Blood Urea Nitrogen 18 mg/dl Creatinine 0.88 mg/dl Est Creatinine Clear Calc Drug Dose 157.0 ml/min Estimated GFR () 106.7 Estimated GFR (Non- 92.1 BUN/Creatinine Ratio 20.3 Random Glucose 273 mg/dl Calcium Level 8.9 mg/dl Magnesium Level mg/dl 1.6 mg/dl Bedside Glucose 222 mg/dl Assessment and Plan 62 yo M admitted to hospital on 03/18/2017 after being seen in the pulmonary clinic by Tony Magana and was found to be hyponatremic, stable PMHx of DM II, HTN, chronic diastolic CHF/cor pulmonale, COPD, 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 hypomagnesemia, it is from the same etiology Continue current Bumex, at sodium pill 1 g twice a day, will watch the sodium level, and discuss with patient and the risk and benefit Has extensive discussion about risk and benefit, encourage free water restriction as well he agreed to limit to 1.5 L daily, discussed with nurse about this plan Replace magnesium, continue mag oxide to 400 mg by mouth 3 times a day fatigue - this could be from any number of the above processes, is better Chronic respiratory failure and O2 dependent, stable COPD with possible early exacerbation, stable Continue defer on steroids Continue levaquin for now, supportive care. ALLIE - trach DM II, HTN, chronic diastolic CHF/cor pulmonale: Stable continue current care DVT prophylaxis is covered Discussed with patient about care plan, encourage out of bed and activity Continued [facility] stay due to: home environment unsafe for pt Discharge planning: home
[2017-03-21] MEDS ORDERED: MAGNESIUM SULFATE 1GM / D5W 1 GM in PREMIXED IN D5W 100 ML IV ONE (14:45)
[2017-03-21] MEDS: ACETAMINOPHEN 325 MG TAB PO PRN (15:52)
[2017-03-21] MEDS: POLYETHYLENE (MIRALAX) 17 GM PACK PO PRN (18:37)
[2017-03-21] MEDS: LATANOPROST 0.005% OP SOLN 2.5 ML BTL OP SCH (22:03)
[2017-03-22] VITALS (7 sets, daily range): BP systolic 115–134; BP diastolic 67–83; PULSE 80–114; TEMP 36.5; O2SAT 95–99
[2017-03-22 06:26] LABS: BUN/CREATININE RATIO 21.1 (10-20); CALCIUM 8.9 mg/dl (8.5-10.1); CREATININE 0.83 mg/dl (0.60-1.40); MAGNESIUM 1.9 mg/dl (1.8-2.4); POTASSIUM 4.7 mmol/L (3.5-5.1)
[2017-03-22] MEDS: BUDESONIDE 0.5 MG/2 ML VIAL (PULMICORT) INH SCH ×2 (07:00→19:00)
[2017-03-22] MEDS: ALBUT/IPRATROP 3MG/0.5MG NEB 3 ML VIAL INH SCH ×4 (07:00→19:01)
[2017-03-22] MEDS: DORZOLAMIDE HCL 2% OPH SOLN 10 ML BTL OP SCH ×2 (08:13→20:39)
[2017-03-22] MEDS: FLUTICASONE PROPIONATE NA SPR 16 GM BTL SCH (08:13)
[2017-03-22] MEDS: BUDESONIDE/FORMOTEROL FUMARATE 160/4.5 60 PUFFS/INHALER INH SCH ×2 (08:13→20:40)
[2017-03-22] MEDS: TROLAMINE SALICYLATE 10% CRM 255 APPLN/85 GM TUBE EXT SCH ×4 (08:14→20:39)
[2017-03-22] MEDS: DILTIAZEM HCL 120 MG ER CAP PO SCH (08:15)
[2017-03-22] MEDS: ASPIRIN 81 MG ECTAB PO SCH (08:15)
[2017-03-22] MEDS: POTASSIUM CHLORIDE 20 MEQ TABCR PO SCH ×3 (08:15→17:12)
[2017-03-22] MEDS: ISOSORBIDE MONONITRATE 30 MG TABCR PO SCH (08:15)
[2017-03-22] MEDS: BUMETANIDE 1 MG TAB PO SCH (08:15)
[2017-03-22] MEDS: OMEGA-3 (PURIFIED FISH OIL) 1 GM CAP PO SCH (08:16)
[2017-03-22] MEDS: MAGNESIUM OXIDE 400 MG TAB PO SCH ×3 (08:16→20:42)
[2017-03-22] MEDS: SODIUM CHLORIDE 1 GM TAB PO SCH ×2 (08:16→20:41)
[2017-03-22] MEDS: LORAZEPAM 1 MG TAB PO PRN ×2 (08:16→20:42)
[2017-03-22] MEDS: RIVAROXABAN 10 MG TAB PO SCH (08:16)
[2017-03-22] MEDS: ATORVASTATIN 40 MG TAB PO SCH (08:16)
[2017-03-22] MEDS: METOPROLOL TARTRATE 25 MG TAB PO SCH ×2 (08:16→20:40)
[2017-03-22] MEDS: CEROVITE ADV FORMULA TAB PO SCH (08:16)
[2017-03-22] MEDS: TRAMADOL HCL 50 MG TAB PO PRN ×2 (08:17→20:41)
[2017-03-22] MEDS: LISINOPRIL 10 MG TAB PO SCH (08:17)
[2017-03-22] MEDS: SPIRONOLACTONE 25 MG TAB PO SCH ×2 (08:18→17:11)
[2017-03-22] MEDS: INSULIN ASPART 100 UNITS/ML VIAL SQ SCH ×3 (08:29→18:37)
[2017-03-22] MEDS: INSULIN GLARGINE SC SCH ×2 (08:29→20:51)
[2017-03-22] MEDS: POLYETHYLENE (MIRALAX) 17 GM PACK PO PRN (08:39)
--- NOTE | 2017-03-22 09:16 | Progress Note ---
Subjective Date of Service: Mar 22, 2017. Subjective Pt evaluation today including: conversation w/ patient, conversation w/ family , physical exam, chart review, lab review, review of studies, review of inpatient medication list Complain and not of fluid restriction, and 1want it no more Problem List Medical Problems: (1) Atrial fibrillation with rapid ventricular response Status: Acute (2) Back pain Status: Acute (3) Cellulitis Status: Acute (4) Cellulitis of right lower extremity Status: Acute (5) Congestive heart failure Status: Acute (6) Dyspnea Status: Acute (7) Failure of outpatient treatment Status: Acute (8) Hyperglycemia Status: Acute (9) Pneumonia Status: Acute (10) Pneumonia Status: Acute (11) Pneumonia Status: Acute (12) Respiratory distress Status: Acute (13) Shortness of breath Status: Acute (14) Tracheitis Status: Acute (15) Weight gain Status: Acute Review of Systems Constitutional: No fever, No chills, No sweats, No weight loss, No weakness, No fatigue, No problem reported Eyes: No worsening of vision, No eye pain, No redness, No discharge, No diplopia ENT: + problem reported (thirsty), No hearing loss, No unusual epistaxis, No nasal symptoms, No sore throat, No tinnitus, No dental problems, No trouble swallowing Respiratory: + cough (occasional), No sputum, No wheezing, No shortness of breath, No dyspnea on exertion, No dyspnea at rest, No hemoptysis Cardiac: No chest pain, No orthopnea, No PND, No edema, No claudication, No palpitations Abdomen: No pain, No nausea, No vomiting, No diarrhea, No constipation Musculoskeletal: No joint pain, No muscle pain, No swelling, No calf pain Male : No dysuria, No urinary frequency, No incontinence, No nocturia more than once/night, No slowing stream, No hematuria Neurologic: No memory loss, No paralysis, No weakness, No numbness/tingling, No vertigo, No balance problems Psychiatric: No depression symptoms, No anhedonism, No anxiety, No insomnia, No substance abuse Heme: No abnormal bleeding/bruising, No clotting problems, No swollen lymph nodes, No night sweats Endo: No fatigue, No excessive thirst, No excessive urination Skin: + problem reported (chronic pigmentation is not new), No rash, No itch, No new/changing skin lesions, No color change, No bleeding Objective Vital Signs Date Time Temp Pulse Resp B/P (MAP) Pulse Ox O2 Delivery O2 Flow Rate FiO2 03/22/17 07:27 36.5 82 16 115/67 (83) 99 Trach Collar 03/22/17 07:00 86 18 97 Room Air 03/21/17 23:40 36.5 77 20 144/80 (101) 96 Trach Collar 8.0 03/21/17 18:55 78 18 93 Room Air 03/21/17 16:00 Room Air Trach Collar 03/21/17 15:36 36.7 72 20 122/71 (88) 97 Room Air 03/21/17 15:08 72 20 96 Room Air 03/21/17 11:20 87 20 94 Room Air Physical Exam General Appearance: WD/WN, no apparent distress, + obese Eyes: normal inspection, PERRL, EOMI, sclerae normal ENT: normal ENT inspection, hearing grossly normal, pharynx normal, + pertinent finding (lips has no obvious dry) Neck: supple, no adenopathy, thyroid normal, no JVD, no carotid bruits, trachea midline Respiratory/Chest: chest non-tender, normal breath sounds, no respiratory distress, no accessory muscle use, + decreased breath sounds, + pertinent finding (SP tracheotomy, local skin clean and no red) Cardiovascular: regular rate, rhythm, no edema, no gallop, no JVD, no murmur Abdomen: normal bowel sounds, non tender, soft, no organomegaly, no pulsatile mass Extremities: normal range of motion, non-tender, normal inspection, no pedal edema, no calf tenderness, normal capillary refill, pelvis stable Neurologic/Psychiatric: compliance administrator II-XII nml as tested, no motor/sensory deficits, alert, normal mood/affect, oriented x 3 Skin: warm/dry, no rash, + pertinent finding (chronic pigmentation in bilateral lower extremity, with trace edema) Lymphatic: no adenopathy Laboratory Results Last 24 Hours Test 03/21/17 10:11 03/21/17 11:55 03/21/17 16:27 03/21/17 19:33 Potassium Level 4.2 mmol/L Magnesium Level 1.6 mg/dl Bedside Glucose 222 mg/dl 214 mg/dl 209 mg/dl Test 03/22/17 05:09 03/22/17 07:52 Sodium Level 128 mmol/L Potassium Level 4.7 mmol/L Chloride Level 96 mmol/L Carbon Dioxide Level 27 mmol/L Anion Gap 5.0 mmol/L Blood Urea Nitrogen 18 mg/dl Creatinine 0.83 mg/dl Est Creatinine Clear Calc Drug Dose 167.3 ml/min Estimated GFR () 109.3 Estimated GFR (Non- 94.3 BUN/Creatinine Ratio 21.1 Random Glucose 153 mg/dl Calcium Level 8.9 mg/dl Magnesium Level 1.9 mg/dl Bedside Glucose 162 mg/dl Assessment and Plan 62 yo M admitted to hospital on 03/18/2017 after being seen in the pulmonary clinic by Tony Magana and was found to be hyponatremic, stable PMHx of DM II, HTN, chronic diastolic CHF/cor pulmonale, COPD, 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, uses CPAP and 6 liters O2 QHS, chronic atrial fibrillation, Insulin-dependent diabetes requiring large volumes of insulin, chronic recurrent cellulitis of the lower extremities, Morbid obesity, CAD, Chronic lower extremity edema, hyperlipidemia , chronic hyponatremia, chronic lactic acidosis, Hyponatremia associated with hypomagnesemia Still hyponatremic Magnesium level resolved it is chronic going back to 2016 Possible due to chronic diuretic therapy especially his metolazone is which has been on hold since admission labs of serum osm, urine osm, urine Na readings will not be useful due to the chronic diuretic use. hypomagnesemia, it is from the same etiology Continue current Bumex, add sodium pill 1 g twice a day from 03/21/2017, will watch the sodium level, and discuss with patient and the risk and benefit Was having extensive discussion about risk and benefit yesterday, encouraged free water restriction as well he agreed to limit to 1.5 L daily, however patient do not want it, and want to take all risks by himself, normal free water restriction continue mag oxide to 400 mg by mouth 3 times a day fatigue - this could be from any number of the above processes, is better Chronic respiratory failure and O2 dependent, stable COPD with possible early exacerbation, stable Continue levaquin, day 4 out of 7days, supportive care. ALLIE - trach DM II, HTN, chronic diastolic CHF/cor pulmonale: Stable continue current care DVT prophylaxis is covered Discussed with patient about care plan, encourage out of bed and activity Possible discharge home tomorrow if sodium level continue stable, Continued [facility] stay due to: home environment unsafe for pt Discharge planning: home
[2017-03-22] MEDS: LEVOFLOXACIN 750 MG TAB PO SCH (12:32)
[2017-03-22] MEDS: ACETAMINOPHEN 325 MG TAB PO PRN ×2 (12:41→17:14)
[2017-03-22] MEDS: LATANOPROST 0.005% OP SOLN 2.5 ML BTL OP SCH (20:39)
[2017-03-23 07:26] VITALS: BP 113/54; PULSE 74; TEMP 36.8; O2SAT 93
[2017-03-23 07:41] VITALS: PULSE 95; O2SAT 96
[2017-03-23] MEDS: BUDESONIDE 0.5 MG/2 ML VIAL (PULMICORT) INH SCH (07:41)
[2017-03-23] MEDS: ALBUT/IPRATROP 3MG/0.5MG NEB 3 ML VIAL INH SCH ×2 (07:41→11:25)
[2017-03-23] MEDS: TROLAMINE SALICYLATE 10% CRM 255 APPLN/85 GM TUBE EXT SCH ×2 (08:06→12:13)
[2017-03-23] MEDS: DORZOLAMIDE HCL 2% OPH SOLN 10 ML BTL OP SCH (08:06)
[2017-03-23] MEDS: BUDESONIDE/FORMOTEROL FUMARATE 160/4.5 60 PUFFS/INHALER INH SCH (08:06)
[2017-03-23] MEDS: FLUTICASONE PROPIONATE NA SPR 16 GM BTL SCH (08:06)
[2017-03-23] MEDS: ATORVASTATIN 40 MG TAB PO SCH (08:07)
[2017-03-23] MEDS: ASPIRIN 81 MG ECTAB PO SCH (08:07)
[2017-03-23] MEDS: ISOSORBIDE MONONITRATE 30 MG TABCR PO SCH (08:07)
[2017-03-23] MEDS: POTASSIUM CHLORIDE 20 MEQ TABCR PO SCH ×2 (08:07→12:13)
[2017-03-23] MEDS: DILTIAZEM HCL 120 MG ER CAP PO SCH (08:07)
[2017-03-23] MEDS: BUMETANIDE 1 MG TAB PO SCH (08:07)
[2017-03-23] MEDS: SODIUM CHLORIDE 1 GM TAB PO SCH (08:08)
[2017-03-23] MEDS: METOPROLOL TARTRATE 25 MG TAB PO SCH (08:08)
[2017-03-23] MEDS: MAGNESIUM OXIDE 400 MG TAB PO SCH ×2 (08:08→12:13)
[2017-03-23] MEDS: CEROVITE ADV FORMULA TAB PO SCH (08:08)
[2017-03-23] MEDS: OMEGA-3 (PURIFIED FISH OIL) 1 GM CAP PO SCH (08:08)
[2017-03-23] MEDS: RIVAROXABAN 10 MG TAB PO SCH (08:08)
[2017-03-23] MEDS: LISINOPRIL 10 MG TAB PO SCH (08:08)
[2017-03-23] MEDS: LORAZEPAM 1 MG TAB PO PRN (08:09)
[2017-03-23] MEDS: TRAMADOL HCL 50 MG TAB PO PRN (08:09)
[2017-03-23] MEDS: SPIRONOLACTONE 25 MG TAB PO SCH (08:09)
[2017-03-23] MEDS: INSULIN GLARGINE SC SCH (08:17)
[2017-03-23] MEDS: INSULIN ASPART 100 UNITS/ML VIAL SQ SCH ×2 (08:17→12:15)
[2017-03-23 08:47] LABS: BUN/CREATININE RATIO 16.9 (10-20); CALCIUM 8.8 mg/dl (8.5-10.1); CREATININE 0.84 mg/dl (0.60-1.40); MAGNESIUM 1.9 mg/dl (1.8-2.4); POTASSIUM 4.5 mmol/L (3.5-5.1)
[2017-03-23 11:25] VITALS: PULSE 77; O2SAT 96
[2017-03-23] MEDS ORDERED: LVQ750 PO (11:42)
[2017-03-23] MEDS ORDERED: MGNO400 PO (11:42)
[2017-03-23] MEDS ORDERED: SDMC1 PO (11:42)
--- NOTE | 2017-03-23 11:48 | Discharge Instructions ---
Discharge Instructions Date of Service Mar 23, 2017. Admission Reason for Admission: Hyponatremia Discharge Discharge Diagnosis / Problem: Hyponatremia associated with hypomagnesemia Discharge Goals Goal(s): Decrease discomfort, Improve function, Increase independence, Improve disease control, Improve nutritional status, Learn about illness, Diagnostic testing, Therapeutic intervention, Prevent Disease Progression, Specific goals Activity Recommendations Activity Limitations: resume your previous activity . Instructions / Follow-Up Instructions / Follow-Up you have Hyponatremia associated with hypomagnesemia Na 131 today Magnesium level resolved you can continue current Bumex, I add sodium pill 1 g twice a day from 2016, you need to check labs with your pcp in 3-5 days in the follow up visit with pcp, and adjust this medicine. continue mag oxide to 400 mg by mouth 3 times a day - you need to follow up with your primary care physician in 3-5 days week, - call your pcp if have chest pain, sob, palpitation, or if has any questions - take medication as instructed, never overdose or any misuse, or take with alcohol, because misuse of medicine may cause organ damage or , call your primary care physician if have questions of medicaitons. - call your primary care physician OR go to local emergency room if has any fever/chill, chest pain, shortness of breathing, nausea/vomiting/abdominal pain , facial droop/slurry speech/local weakness, or if has any questions. - fall precaution - diet as instructed - you should understand that it is important to follow up the above instruction , and "not following the above instruction" may cause delayed or missed care of your medical conditions which may cause permanent organ damage and even . Current Hospital Diet Patient's current hospital diet: AHA Diet (Heart Healthy) Discharge Diet Recommended Diet: AHA Diet (Heart Healthy) Procedures Procedures Performed: no Pending Studies Studies pending at discharge: no Medical Emergencies . Who to Call and When: Medical Emergencies: If at any time you feel your situation is an emergency, please call 911 immediately. . Non-Emergent Contact Non-Emergency issues call your: Primary Care Provider . . "Provider Documentation" section prepared by Yassine Matamoros. . VTE Core Measure Inpt VTE Proph given/why not?: Enoxaparin (Lovenox)SQ, SCD's
[2017-03-23 12:02] VITALS: BP 113/54; PULSE 77; TEMP 36.8; O2SAT 96
[2017-03-23] MEDS: LEVOFLOXACIN 750 MG TAB PO SCH (12:13)
--- NOTE | 2017-03-23 16:34 | Discharge Summary ---
Discharge Summary Date of Service Mar 23, 2017. Discharge Summary Admission Date: Mar 18, 2017 at 14:26 Discharge Date: Mar 23, 2017 Principal Diagnosis: Hyponatremia associated with hypomagnesemia Problems/Secondary Diagnoses: Morbid obesity S/P tracheotomy Possible mild COPD exacerbation Procedures: No Consultations: No Medication Reconciliation New Medications: Levofloxacin (Levofloxacin) 750 Mg Tab 750 MG PO DAILY@11 for 2 Days, TAB Magnesium Oxide (Magnesium-Oxide) 400 Mg Tab 400 MG PO TID for 14 Days, TAB Sodium Chloride (Sodium Chloride) 1 Gm Tab 1 GM PO BID for 7 Days, TAB Continued Medications: Albuterol Hfa (Ventolin Hfa) 200 Puffs/10538 Mcg Aers 1 PUFFS INH QID PRN for SOB/Wheezing, #1 INHALER Aspirin (Aspirin 81) 81 Mg Tab 81 MG PO DAILY Atorvastatin (Lipitor) 80 Mg Tab 80 MG PO DAILY, TAB Atorvastatin Calcium (Lipitor) 80 Mg Tab 1 TAB PO DAILY for 30 Days, #30 TAB 5 Refills Bacitracin (Topical) (Bacitracin) 500 Unit/Gm Oin 1 APPLN TOP DAILY for AFFECTED AREA for 7 Days, #15 GM Beclomethasone Dipropionate (N (Qnasl) 80 Mcg/Act Aer 1 SPRY SIMBA DAILY, #8.7 GM 11 Refills Budesonide (Pulmicort Respules 0.5MG/2ML) 0.5 Mg/2 Ml Nebu 2 ML INH BID, EA Budesonide/Formoterol Fumarate (Symbicort 160/4.5 Inhaler ) Aero 1 PUFFS INH BID, INHALER Bumetanide (Bumetanide) 1 Mg Tab 2 MG PO QAM for 30 Days, #60 TAB Desloratadine (Clarinex) 5 Mg Tab 5 MG PO DAILY, TAB Diltiazem HCl (Diltiazem HCl ER) 120 Mg Caper 120 MG PO QAM for 30 Days Dorzolamide Hcl (Trusopt Oph) 2 % Vanessa 1 DROPS OP BID, #30 ML 3 Refills Fish Oil ([place]-3) 1 Ea Cap 1 CAP PO DAILY, CAP Glucagon (Glucagon Emergency Kit) 1 Mg Kit 1 DOSE INJ UD Guaifenesin (Mucinex Maximum Strength) 1,200 Mg Tab 1200 MG PO BID for 15 Days, #3 TAB Insulin Aspart (Novolog Flexpen) 100 Units/Ml Inj 83 UNITS SQ QAM, #210 Insulin Aspart (Novolog Flexpen) 100 Units/Ml Inj 80 UNITS SQ QPM with supper Insulin Aspart (Novolog Flexpen) 100 Units/Ml Inj 46 UNITS SQ DAILY TAKES WITH LUNCH Insulin Glargine (Lantus Solostar) 100 Unit/Ml Inj 80 UNITS SC QPM, PEN Insulin Glargine (Lantus Solostar) 100 Unit/Ml Inj 83 UNITS SC QAM, PEN Ipratropium-Albuterol (Duoneb) 3 Ml Nebu 1 TREATMENT INH Q4H, INHA Isosorbide Mononitrate (Isosorbide Mononitrate ER) 30 Mg Tabcr 30 MG PO DAILY Latanoprost (Xalatan 0.005% Oph Vanessa) 0.005 % Vanessa 1 DROPS OP HS, #2.5 ML 3 Refills Lisinopril (Zestril) 10 Mg Tab 10 MG PO DAILY, TAB Lorazepam (Lorazepam) 1 Mg Tab 1 MG PO QID PRN for Anxiety Magnesium Oxide (Mag-Ox) 400 Mg Tab 400 MG PO BID, TAB Metoprolol Tartrate (Lopressor) 25 Mg Tab 25 MG PO BID for 30 Days, #60 TAB Multivitamins/Minerals (Mvi With Minerals) Tab 1 TAB PO DAILY, TAB Nitroglycerin (Nitrostat) 0.4 Mg Tab 1 TAB SL UD, #100 TAB 3 Refills Potassium Chloride (Klor-Con M20) 20 Meq Tabcr 60 MEQ PO TIDM for 30 Days Rivaroxaban (Xarelto) 20 Mg Tab 20 MG PO DAILY for 30 Days, 11 Refills Spironolactone (Aldactone) 25 Mg Tab 25 MG PO BID, TAB Tramadol (Ultram) 50 Mg Tab 50 MG PO Q8H PRN for Pain, TAB Discontinued Medications: Metolazone (Metolazone) 5 Mg Tab 5 MG PO QAM for 30 Days, #30 TAB Discharge Exam Feeling well, had a good rest last night, energetic now, he reported ready to go home Review of Systems: Constitutional: No fever, No chills, No sweats, No weight loss, No weakness , No fatigue, No problem reported Eyes: No worsening of vision, No eye pain, No redness, No discharge, No diplopia, No problem reported ENT: No hearing loss, No unusual epistaxis, No nasal symptoms, No sore throat, No tinnitus, No dental problems, No trouble swallowing, No problem reported Respiratory: + shortness of breath (chronic is not new), + problem reported (SP trach), No cough, No sputum, No wheezing, No dyspnea on exertion, No dyspnea at rest, No hemoptysis Cardiovascular: No chest pain, No orthopnea, No PND, No edema, No claudication, No palpitations, No problem reported Abdomen: No pain, No nausea, No vomiting, No diarrhea, No constipation, No GI bleeding, No problem reported Musculoskeletal: No joint pain, No muscle pain, No swelling, No calf pain, No problem reported Neurologic: No memory loss, No paralysis, No weakness, No numbness/tingling , No vertigo, No balance problems, No problem reported Psychiatric: No depression symptoms, No anhedonism, No anxiety, No insomnia , No substance abuse, No problem reported Endocrine: No fatigue, No excessive thirst, No excessive urination, No problem reported Hematologic / Lymphatic: No abnormal bleeding/bruising, No clotting problems , No swollen lymph nodes, No night sweats, No problem reported Integumentary: + problem reported (bilateral lower extremity, chronic pigmentation) Hospital Course 62 yo M admitted to hospital on 03/18/2017 after being seen in the pulmonary clinic by Tony Magana and was found to be hyponatremic, continue stable and improve PMHx of DM II, HTN, chronic diastolic CHF/cor pulmonale, COPD, 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, uses CPAP and 6 liters O2 QHS, chronic atrial fibrillation, Insulin-dependent diabetes requiring large volumes of insulin, chronic recurrent cellulitis of the lower extremities, Morbid obesity, CAD, Chronic lower extremity edema, hyperlipidemia , chronic hyponatremia, chronic lactic acidosis, Hyponatremia associated with hypomagnesemia Improved Magnesium level resolved it is chronic going back to 2016 Possible due to chronic diuretic therapy especially his metolazone is which has been on hold since admission labs of serum osm, urine osm, urine Na readings will not be useful due to the chronic diuretic use. hypomagnesemia, it is from the same etiology Continue current Bumex, add sodium pill 1 g twice a day from 03/21/2017, will watch the sodium level, and discuss with patient and the risk and benefit, today checked sodium level, which improved Was having extensive discussion about risk and benefit yesterday, encouraged free water restriction as well he agreed to limit to 1.5 L daily, however patient do not want it, and want to take all risks by himself, normal free water restriction continue mag oxide to 400 mg by mouth 3 times a day fatigue - this could be from any number of the above processes, is better Chronic respiratory failure and O2 dependent, stable COPD with possible early exacerbation, stable Continue levaquin, day 4 out of 7days, supportive care, continue Levaquin for 3 -4 days more upon discharge ALLIE - trach DM II, HTN, chronic diastolic CHF/cor pulmonale: Stable continue current care DVT prophylaxis is covered Discussed with patient about care plan, encourage out of bed and activity Discussed with patient about discharge plan, because the underlined medical conditions, will be in high risk of readmission, I encouraged patient to follow- up with PCP and specialist as instructed, call PCP if have any questions Instructions / Follow-Up you have Hyponatremia associated with hypomagnesemia Na 131 today Magnesium level resolved you can continue current Bumex, I add sodium pill 1 g twice a day from 2016, you need to check labs with your pcp in 3-5 days in the follow up visit with pcp, and adjust this medicine. continue mag oxide to 400 mg by mouth 3 times a day - you need to follow up with your primary care physician in 3-5 days week, - call your pcp if have chest pain, sob, palpitation, or if has any questions - take medication as instructed, never overdose or any misuse, or take with alcohol, because misuse of medicine may cause organ damage or , call your primary care physician if have questions of medicaitons. - call your primary care physician OR go to local emergency room if has any fever/chill, chest pain, shortness of breathing, nausea/vomiting/abdominal pain , facial droop/slurry speech/local weakness, or if has any questions. - fall precaution - diet as instructed - you should understand that it is important to follow up the above instruction , and "not following the above instruction" may cause delayed or missed care of your medical conditions which may cause permanent organ damage and even . Total Time Spent: Greater than 30 minutes This includes examination of the patient, discharge planning, medication reconciliation, and communication with other providers. Discharge Instructions Please refer to the electronic Patient Visit Report (Discharge Instructions) for additional information. Additional Copies To Tony Magana PA-C; Christofer Hanley DO
== END 2017-03-23 14:08 | disposition home or self-care (01) | DRG 641 ==
LOC: C.EDB 11:19 → C.4E 14:26 → EDBEDREQ 14:31 → ENRESERV 14:51
PROVIDERS: ADMIT Internal Medicine; ATTEND Hospitalist
DX: E87.1 Hypo-osmolality and hyponatremia (principal); I50.32 Chronic diastolic (congestive) heart failure; J44.1 Chronic obstructive pulmonary disease with (acute) exacerbation; J96.10 Chronic respiratory failure, unspecified whether with hypoxia or hypercapnia; Z68.44 Body mass index [BMI] 60.0-69.9, adult; L03.115 Cellulitis of right lower limb; L03.116 Cellulitis of left lower limb; E83.42 Hypomagnesemia; T50.2X5A Adverse effect of carbonic-anhydrase inhibitors, benzothiadiazides and other diuretics, initial encounter; I11.0 Hypertensive heart disease with heart failure; I27.81 Cor pulmonale (chronic); E11.9 Type 2 diabetes mellitus without complications; G47.33 Obstructive sleep apnea (adult) (pediatric); I48.2 Chronic atrial fibrillation; I25.10 Atherosclerotic heart disease of native coronary artery without angina pectoris; E78.5 Hyperlipidemia, unspecified; E87.2 Acidosis; E66.01 Morbid (severe) obesity due to excess calories; W19.XXXA Unspecified fall, initial encounter; Y92.230 Patient room in hospital as the place of occurrence of the external cause; Z93.0 Tracheostomy status; Z86.14 Personal history of Methicillin resistant Staphylococcus aureus infection; Z87.891 Personal history of nicotine dependence; Z99.81 Dependence on supplemental oxygen; Z79.01 Long term (current) use of anticoagulants; Z79.4 Long term (current) use of insulin; Z79.51 Long term (current) use of inhaled steroids; Z79.82 Long term (current) use of aspirin; Z79.899 Other long term (current) drug therapy; Z83.3 Family history of diabetes mellitus; Z82.49 Family history of ischemic heart disease and other diseases of the circulatory system

== ENCOUNTER 2017-07-12 12:31 | Inpatient (IN) | payer OTHER ==
[~2017-07-12] VITALS: Ht 185.4 cm; Wt 208.1 kg
[~2017-07-12 12:31] MED LIST changes: +ASPI-435 PO; +ATOR80TA PO; +ATV1 PO; +BACI500O11 TOP; +BECL1AER5 NAE; +CLR/5 PO; +DORZ2SOL17 OP; +GLGKIT INJ; -GLYCDRO6 OPR; +GUAI1TAB69 PO; +IMDSR/30 PO; +INSDGIPEN SC; +IPRASOL4 INH; +LATA0.5S OP; +LVQ750 PO; +MAGN400T6 PO; +MGNO400 PO; +NTRGSL/4 SL; +NVLGI/PEN SC; +NVLGI/PEN SQ; +NVLGIPEN SC; -OXYC-106 PO; +PLMINSR5 INH; +RIVA1TAB4 PO; +SDMC1 PO; +SPIR25TA89 PO; +SYMIN160 INH; +TRAM-10 PO; +VNTHFA/IN INH; -ZRX5 PO
[2017-07-12] MEDS ORDERED: LEVAQUIN 750MG / 150ML D5W IV STA (12:54)
[2017-07-12] MEDS ORDERED: ALBUT/IPRATROP 3MG/0.5MG NEB 3 ML VIAL INH ONE (13:00)
[2017-07-12 13:23] VITALS: PULSE 106; O2SAT 94
--- NOTE | 2017-07-12 13:57 | DIAGNOSTIC IMAGING REPORT ---
CHEST ONE VIEW PORTABLE CLINICAL HISTORY: Shortness of breath. COMPARISON STUDY: Chest radiograph March 18, [address] May 04, 2016. FINDINGS: This exam is compromised due to difficulty positioning. Linear left lung opacities with calcification are chronic. Cardiomediastinal silhouette is stable. There is no evidence for pulmonary edema. Moderate cardiomegaly is again noted. No pneumothorax is identified.. IMPRESSION: 1. Study compromised due to difficulty positioning. 2. No change in appearance of the chest with stable cardiomegaly and linear left lung opacities which favor scarring. Electronically signed by: Alexis Luna M.D. 07/12/2017 1:55 PM Dictated Date/Time: 07/12/2017 1:53 PM
[2017-07-12 13:59] LABS: BASO % 0.3 %; BASO ABS # 0.03 K/uL (0-0.2); COMPLETE YES; EOS % 0.6 %; HEMATOCRIT 39.6 % (42-52); IG% 0.5 %; LYMPH % 9.9 %; LYMPH ABS # 1.08 K/uL (1.2-3.4); MEAN CELL VOLUME 87.2 fL (80-100); MEAN CORPUSCULAR HEMOGLOBIN 29.3 pg (25-34); MEAN CORPUSCULAR HGB CONC 33.6 g/dl (32-36); MEAN PLATELET VOLUME 11.2 fL (7.4-10.4); MONO % 7.7 %; PLATELET COUNT 141 K/uL (130-400); RED BLOOD COUNT 4.54 M/uL (4.7-6.1)
[2017-07-12 14:06] LABS: INR 1.1 (0.9-1.1); PROTHROMBIN TIME (PATIENT) 11.1 SECONDS (9.0-12.0)
[2017-07-12 14:16] LABS: ALT/SGPT 37 U/L (12-78); BLOOD UREA NITROGEN 16 mg/dl (7-18); BUN/CREATININE RATIO 18.8 (10-20); CALCIUM 8.5 mg/dl (8.5-10.1); CARBON DIOXIDE 29 mmol/L (21-32); CHLORIDE 89 mmol/L (98-107); CREATININE 0.86 mg/dl (0.60-1.40); GLUCOSE 259 mg/dl (70-99); POTASSIUM 4.3 mmol/L (3.5-5.1); SODIUM 126 mmol/L (136-145)
[2017-07-12 14:21] LABS: ALB/GLOB RATIO 0.9 (0.9-2); ALKALINE PHOSPHATASE 87 U/L (45-117); AST/SGOT 39 U/L (15-37); CKMB/CK RATIO 3.9 (0-3.0)
--- NOTE | 2017-07-12 14:45 | EMERGENCY ROOM VISIT NOTE ---
History Report prepared by Shine: Teena Chi Under the Supervision of: Dr. Abhinav Guerrier D.O. First contact with patient: 12:52 Chief Complaint: SHORTNESS OF BREATH Stated Complaint: TROUBLE BREATHING History of Present Illness The patient is a 62 year old male who presents to the Emergency Room with complaints of worsening shortness of breath beginning 1 week ago. The patient states that he has been coughing up green, yellow, and brown sputum. The patient denies vomiting, diarrhea, and chest pain. Source of History: patient Onset: 1 week ago Position: other (global) Quality: other (shortness of breath ) Timing: worsening Associated Symptoms: + cough, No chest pain, No vomiting, No diarrhea Review of Systems See HPI for pertinent positives & negatives. A total of 10 systems reviewed and were otherwise negative. Past Medical & Surgical Medical Problems: (1) Cellulitis (2) Cellulitis and abscess of leg (3) CHF exacerbation (4) COPD (chronic obstructive pulmonary disease) (5) COPD exacerbation (6) Diabetes (7) Dyspnea (8) Fever chills (9) HCAP (healthcare-associated pneumonia) (10) Hemoptysis (11) Hyperlipidemia (12) Hyponatremia (13) Morbid obesity (14) PNA (pneumonia) (15) Sepsis due to Streptococcus pneumoniae (16) SOB (shortness of breath) Surgical Problems: (1) Tracheostomy in place Family History Diabetes mellitus Heart disease Hypertension Social History Smoking Status: Former Smoker Drug Use: none Marital Status: Occupation Status: unemployed Current/Historical Medications Scheduled Aspirin (Aspirin 81), 81 MG PO DAILY Atorvastatin (Lipitor), 80 MG PO DAILY Atorvastatin Calcium (Lipitor), 1 TAB PO DAILY Bacitracin (Topical) (Bacitracin), 1 APPLN TOP DAILY Beclomethasone Dipropionate (N (Qnasl), 1 SPRY SIMBA DAILY Budesonide (Pulmicort Respules 0.5MG/2ML), 2 ML INH BID Budesonide/Formoterol Fumarate (Symbicort 160/4.5 Inhaler ), 1 PUFFS INH BID Bumetanide (Bumetanide), 2 MG PO QAM Desloratadine (Clarinex), 5 MG PO DAILY Diltiazem HCl (Diltiazem HCl ER), 120 MG PO QAM Dorzolamide Hcl (Trusopt Oph), 1 DROPS OP BID Fish Oil ([place]-3), 1 CAP PO DAILY Glucagon (Glucagon Emergency Kit), 1 DOSE INJ UD Guaifenesin (Mucinex Maximum Strength), 1,200 MG PO BID Insulin Aspart (Novolog Flexpen), 83 UNITS SQ QAM Insulin Aspart (Novolog Flexpen), 80 UNITS SQ QPM Insulin Aspart (Novolog Flexpen), 46 UNITS SQ DAILY Insulin Glargine (Lantus Solostar), 80 UNITS SC QPM Insulin Glargine (Lantus Solostar), 83 UNITS SC QAM Ipratropium-Albuterol (Duoneb), 1 TREATMENT INH Q4H Isosorbide Mononitrate (Isosorbide Mononitrate ER), 30 MG PO DAILY Latanoprost (Xalatan 0.005% Oph Vanessa), 1 DROPS OP HS Levofloxacin (Levofloxacin), 750 MG PO DAILY@11 Lisinopril (Zestril), 10 MG PO DAILY Magnesium Oxide (Mag-Ox), 400 MG PO BID Magnesium Oxide (Magnesium-Oxide), 400 MG PO TID Metoprolol Tartrate (Lopressor), 25 MG PO BID Multivitamins/Minerals (Mvi With Minerals), 1 TAB PO DAILY Nitroglycerin (Nitrostat), 1 TAB SL UD Potassium Chloride (Klor-Con M20), 60 MEQ PO TIDM Rivaroxaban (Xarelto), 20 MG PO DAILY Sodium Chloride (Sodium Chloride), 1 GM PO BID Spironolactone (Aldactone), 25 MG PO BID Scheduled PRN Albuterol Hfa (Ventolin Hfa), 1 PUFFS INH QID PRN for SOB/Wheezing Lorazepam (Lorazepam), 1 MG PO QID PRN for Anxiety Tramadol (Ultram), 50 MG PO Q8H PRN for Pain Allergies Coded Allergies: [place] (Verified Allergy, Severe, Difficulty breathing, 03/18/17) Sodium Hypochlorite (Verified Allergy, Unknown, HIVES AND RESPIRATORY DIFFICULTY FROM [place]OROX, 03/18/17) Physical Exam Vital Signs Date Time Temp Pulse Resp B/P (MAP) Pulse Ox O2 Delivery O2 Flow Rate FiO2 07/12/17 13:56 105 24 154/88 97 Trach Collar 10.0 35 07/12/17 13:23 106 18 94 Trach Collar 35 07/12/17 12:58 94 Trach Collar 10.0 35 07/12/17 12:57 95 Trach Collar 10.0 35 07/12/17 12:56 96 07/12/17 12:53 94 Humidified Oxygen 10.0 35 07/12/17 12:34 36.5 100 26 188/73 95 Room Air Physical Exam CONSTITUTIONAL/VITAL SIGNS: Reviewed / noted above. GENERAL: Non-toxic in appearance. INTEGUMENTARY: Warm, dry, and [place]. HEAD: Normocephalic. EYES: without scleral icterus or trauma. ENT/OROPHARYNX: There is a tracheostomy in place. Yellowish sputum coughed through the tracheostomy. LYMPHADENOPATHY/NECK: Is supple without lymphadenopathy or meningismus. RESPIRATORY: Diminished breath sounds in right base. CARDIOVASCULAR: Regular rate and rhythm. GI/ABDOMEN: Soft and nontender. No organomegaly or pulsatile mass. No rebound or guarding. Normal bowel sounds. EXTREMITIES: Warm and well perfused. BACK: No CVA tenderness. NEUROLOGICAL: Intact without focal deficits. PSYCHIATRIC: normal affect. MUSCULOSKELETAL: Normally developed with good muscle tone. Medical Decision & Procedures ER Provider Diagnostic Interpretation: Radiology results as stated below per my review and radiologist interpretation: CHEST ONE VIEW PORTABLE CLINICAL HISTORY: Shortness of breath. COMPARISON STUDY: Chest radiograph March 18, [address] May 04, 2016. FINDINGS: This exam is compromised due to difficulty positioning. Linear left lung opacities with calcification are chronic. Cardiomediastinal silhouette is stable. There is no evidence for pulmonary edema. Moderate cardiomegaly is again noted. No pneumothorax is identified.. IMPRESSION: 1. Study compromised due to difficulty positioning. 2. No change in appearance of the chest with stable cardiomegaly and linear left lung opacities which favor scarring. Electronically signed by: Alexis Luna M.D. 07/12/2017 1:55 PM Dictated Date/Time: 07/12/2017 1:53 PM Laboratory Results 07/12/17 13:35 Red Blood Count 4.54, Mean Corpuscular Volume 87.2, Mean Corpuscular Hemoglobin 29.3, Mean Corpuscular Hemoglobin Concent 33.6, Mean Platelet Volume 11.2, Neutrophils (%) (Auto) 81.0, Lymphocytes (%) (Auto) 9.9, Monocytes (%) (Auto) 7.7, Eosinophils (%) (Auto) 0.6, Basophils (%) (Auto) 0.3, Neutrophils # (Auto) 8.84, Lymphocytes # (Auto) 1.08, Monocytes # (Auto) 0.84, Eosinophils # (Auto) 0.06, Basophils # (Auto) 0.03 07/12/17 13:35 Test 07/12/17 13:35 White Blood Count 10.90 K/uL (4.8-10.8) Red Blood Count 4.54 M/uL (4.7-6.1) Hemoglobin 13.3 g/dL (14.0-18.0) Hematocrit 39.6 % (42-52) Mean Corpuscular Volume 87.2 fL (80-100) Mean Corpuscular Hemoglobin 29.3 pg (25-34) Mean Corpuscular Hemoglobin Concent 33.6 g/dl (32-36) Platelet Count 141 K/uL (130-400) Mean Platelet Volume 11.2 fL (7.4-10.4) Neutrophils (%) (Auto) 81.0 % Lymphocytes (%) (Auto) 9.9 % Monocytes (%) (Auto) 7.7 % Eosinophils (%) (Auto) 0.6 % Basophils (%) (Auto) 0.3 % Neutrophils # (Auto) 8.84 K/uL (1.4-6.5) Lymphocytes # (Auto) 1.08 K/uL (1.2-3.4) Monocytes # (Auto) 0.84 K/uL (0.11-0.59) Eosinophils # (Auto) 0.06 K/uL (0-0.5) Basophils # (Auto) 0.03 K/uL (0-0.2) RDW Standard Deviation 46.2 fL (36.4-46.3) RDW Coefficient of Variation 14.5 % (11.5-14.5) Immature Granulocyte % (Auto) 0.5 % Immature Granulocyte # (Auto) 0.05 K/uL (0.00-0.02) Prothrombin Time 11.1 SECONDS (9.0-12.0) Prothromb Time International Ratio 1.1 (0.9-1.1) Activated Partial Thromboplast Time 25.4 SECONDS (21.0-31.0) Partial Thromboplastin Ratio 1.0 Anion Gap 9.0 mmol/L (3-11) Estimated GFR () 107.7 Estimated GFR (Non- 92.9 BUN/Creatinine Ratio 18.8 (10-20) Calcium Level 8.5 mg/dl (8.5-10.1) Total Bilirubin 1.0 mg/dl (0.2-1) Aspartate Amino Transf (AST/SGOT) 39 U/L (15-37) Alanine Aminotransferase (ALT/SGPT) 37 U/L (12-78) Alkaline Phosphatase 87 U/L (45-117) Total Creatine Kinase 94 U/L (39-308) Creatine Kinase MB 3.7 ng/ml (0.5-3.6) Creatine Kinase MB Ratio 3.9 (0-3.0) Troponin I 0.038 ng/ml (0-0.045) Total Protein 7.1 gm/dl (6.4-8.2) Albumin 3.4 gm/dl (3.4-5.0) Globulin 3.7 gm/dl (2.5-4.0) Albumin/Globulin Ratio 0.9 (0.9-2) Laboratory results as stated above per my review. Medications Administered Medications (Trade) Dose Ordered Sig/Saige Route Start Time Stop Time Status Last Admin Dose Admin Albuterol/ Ipratropium (Duoneb) 12 ml ONE ONCE INH 07/12/17 13:00 07/12/17 13:01 DC 07/12/17 13:22 12 ML Levofloxacin (Levaquin / D5W) 750 mg NOW STAT IV 07/12/17 12:54 07/12/17 12:56 DC 07/12/17 14:13 750 MG ECG Rate (beats per minute): 101 Rhythm: atrial fibrillation Findings: no acute ischemic change, no ectopy Change: no significant change (from 03/20, atrial fibrillation is chronic) ED Course 1253: Previous medical records were reviewed. The patient was evaluated in room B1. A complete history and physical examination was performed. 1254: Ordered Levofloxacin 750 mg IV. 1300: Ordered Duoneb 12 ml INH. 1429: On reevaluation, the patient is resting. I discussed the results and findings with him. He verbalized agreement of the treatment plan. I spoke with Dr. Matamoros of the [facility]. The patient will be evaluated for further management and care. Medical Decision the differential was considered includes acute myocardial infarction, acute coronary syndrome, myocarditis, pericarditis, pericardial effusions /tamponad, esophageal perforation, pulmonary embolism, pneumonia, pneumothorax, cardiomyopathy, congestive heart, anemia , COPD/asthma exacerbation. This is a 62-year-old male who presents to the ED with a chief complaint of shortness of breath as well as a productive cough with yellow-brown sputum. The patient states that he has had increased symptoms over the past week. He is morbidly obese and has a tracheostomy chronically in place. With coughing, there is some sputum that comes up into the tracheostomy tube. The patient's physical exam reveals some diminished breath sounds on the right. The left foot otherwise are clear. His vital signs are stable. Chest x-ray did not show acute process. CBC was unremarkable. Chemistry panel revealed some hypo-x -ray anemia and hyperglycemia. The patient was treated with a one-hour DuoNeb treatment as well as IV antibiotics. Medication Reconcilliation Current Medication List: was personally reviewed by me Blood Pressure Screening Patient's blood pressure: Elevated blood pressure Blood pressure disposition: Elevated BP felt to be situational Consults Time Called: 1400 Consulting Physician: Dr. Shiloh Lopez Returned Call: [phone] Discussed the patient's case. The patient will be evaluated for further treatment and disposition. Impression Primary Impression: Acute bronchitis Additional Impressions: PNA (pneumonia) Morbid obesity Respiratory failure Scribe Attestation The scribe's documentation has been prepared under my direction and personally reviewed by me in its entirety. I confirm that the note above accurately reflects all work, treatment, procedures, and medical decision making performed by me. Departure Information Dispostion Being Evaluated By Hospitalist Referrals Chrsitofer Hanley DO (PCP) Patient Instructions My [facility] Problem Qualifiers
[2017-07-12] MEDS ORDERED: DILT120C9 PO (15:01)
[2017-07-12] MEDS ORDERED: POTA20TA16 PO (15:01)
[2017-07-12] MEDS ORDERED: METO5TAB5 PO (15:01)
[2017-07-12] MEDS ORDERED: SODI1TAB PO (15:01)
[2017-07-12] MEDS ORDERED: METO25TA56 PO (15:01)
[2017-07-12] MEDS ORDERED: BUME2TAB3 PO (15:01)
[2017-07-12] MEDS ORDERED: FLUT1INH5 INH (15:01)
[2017-07-12] MEDS ORDERED: ACETAMINOPHEN 325 MG TAB PO PRN (15:30)
[2017-07-12] MEDS ORDERED: ONDANSETRON INJ 2 MG/ML 2 ML VIAL IV PRN (15:30)
[2017-07-12] MEDS ORDERED: POLYETHYLENE (MIRALAX) 17 GM PACK PO PRN (15:30)
[2017-07-12] MEDS ORDERED: ALUMINUM/MAGNESIUM/SIMETH (MAALOX MAX) 30 ML UDC PO PRN (15:30)
[2017-07-12] MEDS ORDERED: PHARMACY GLYCEMIC MGMT CONSULT STA (15:35)
[2017-07-12] MEDS ORDERED: METHYLPREDNISOLONE IV 60 MG in SYRINGE 0 ML IV SCH (15:45)
[2017-07-12] MEDS ORDERED: ALBUTEROL HFA 8 GM INHALER INH PRN (15:45)
[2017-07-12] MEDS ORDERED: NITROGLYCERIN 0.4 MG SL PER TAB CHARGE SL PRN (15:45)
[2017-07-12] MEDS ORDERED: INSULIN ASPART 100 UNITS/ML 3 ML PEN SC SCH (16:00)
--- NOTE | 2017-07-12 16:09 | History and Physical ---
History & Physical Date & Time of Service: Jul 12, 2017 at 15:07 Chief Complaint: Trouble Breathing Primary Care Physician: Christofer Hanley DO History of Present Illness Mr. Tim presents today for increasing sob over the last week. He had been taking abx which ran out on Friday and since then has been increasingly worse. He has been coughing up green/brown/blood thick mucous through his trach an requiring oxygen round the clock when his baseline is oxygen only at night. He also feels some chest pressure but no chest pain or palpitations. He has had fever and chills intermittently. No N/V but some diarrhea which he attributes to the antibiotics. Pmhx A.fib with Xeralto, chf, DMII, COPD, trach put in 2014 for sleep apnea, home O2 at night, HLD, morbid obesity, AL with stents Family History Diabetes mellitus Heart disease Hypertension Social History Smoking Status: Former Smoker Drug Use: none Marital Status: Housing status: lives with family Occupational Status: unemployed Immunizations History of Influenza Vaccine: Yes History of Pneumococcal: Yes Multi-Drug Resistant Organisms History of MDRO: Yes Type of MDRO: MRSA Allergies Coded Allergies: Glentana (Verified Allergy, Severe, Difficulty breathing, 07/12/17) Sodium Hypochlorite (Verified Allergy, Unknown, HIVES AND RESPIRATORY DIFFICULTY FROM CLOROX, 07/12/17) Home Medications Scheduled Aspirin (Aspirin 81), 81 MG PO DAILY Atorvastatin (Lipitor), 80 MG PO DAILY Bacitracin (Topical) (Bacitracin), 1 APPLN TOP DAILY Beclomethasone Dipropionate (N (Qnasl), 1 SPRY SIMBA DAILY Bumetanide (Bumex), 1 TAB PO DAILY Desloratadine (Clarinex), 5 MG PO DAILY Diltiazem Hcl (Diltiazem Hcl Er), 1 CAP PO DAILY Dorzolamide Hcl (Trusopt Oph), 1 DROPS OP BID Fish Oil (Clifton-3), 1 CAP PO DAILY Fluticasone Furoate (Inhalatio (Arnuity Ellipta), 1 PUFF INH DAILY Glucagon (Glucagon Emergency Kit), 1 DOSE INJ UD Guaifenesin (Mucinex Maximum Strength), 1,200 MG PO BID Insulin Aspart (Novolog Flexpen), 95 UNITS SQ BREAKFAST Insulin Aspart (Novolog Flexpen), 65 UNITS SC LUNCH Insulin Aspart (Novolog Flexpen), 90 UNITS SC DINNER Insulin Glargine (Lantus Solostar), 95 UNITS SC BID Ipratropium-Albuterol (Duoneb), 1 TREATMENT INH Q4H Isosorbide Mononitrate (Isosorbide Mononitrate ER), 30 MG PO DAILY Latanoprost (Xalatan 0.005% Oph Vanessa), 1 DROPS OP HS Lisinopril (Zestril), 10 MG PO DAILY Magnesium Oxide (Mag-Ox), 400 MG PO TID Metolazone (Zaroxolyn), 5 MG PO DAILY Metoprolol Tartrate (Lopressor) (Lopressor), 25 MG PO BID Multivitamins/Minerals (Mvi With Minerals), 1 TAB PO DAILY Nitroglycerin (Nitrostat), 1 TAB SL UD Potassium Ext Rel (Klor-Con), 3 TAB PO BID Rivaroxaban (Xarelto), 20 MG PO DAILY Sodium Chloride (Sodium Chloride), 1 GM PO DAILY Spironolactone (Aldactone), 25 MG PO BID Scheduled PRN Albuterol Hfa (Ventolin Hfa), 1 PUFFS INH QID PRN for SOB/Wheezing Lorazepam (Lorazepam), 1 MG PO QID PRN for Anxiety Tramadol (Ultram), 50 MG PO Q8H PRN for Pain Review of Systems Constitutional: + fever, + chills Respiratory: + cough, + sputum, + shortness of breath Cardiovascular: + problem reported (chest pressure), No chest pain Abdomen: + diarrhea, No pain, No nausea, No vomiting, No constipation Genitourinary - Male: No dysuria Endocrine: + fatigue Integumentary: + problem reported (chronic cellulitis right lower extremity is darker) Physical Exam Vital Signs Date Time Temp Pulse Resp B/P (MAP) Pulse Ox O2 Delivery O2 Flow Rate FiO2 07/12/17 13:56 105 24 154/88 97 Trach Collar 10.0 35 07/12/17 13:23 106 18 94 Trach Collar 35 07/12/17 12:58 94 Trach Collar 10.0 35 07/12/17 12:57 95 Trach Collar 10.0 35 07/12/17 12:56 96 07/12/17 12:53 94 Humidified Oxygen 10.0 35 07/12/17 12:34 36.5 100 26 188/73 95 Room Air General: no distress Eyes: normal inspection, PERLL Respiratory: chest non tender, expiratory wheezes throughout all lung krishnamurthy, trach in place, no respiratory distress, no accessory muscle use Cardiac: regular rate and rhythm, no rub or gallop, no murmur, no edema, no jvd GI/: active bowel sounds, no abd pain or tenderness, soft, obese Extremities: normal range of motion, normal strength, non tender Neuro/Psych: alert and oriented x 3, normal mood and affect Skin: normal color, dry, erythematous right lower extremity Diagnostics Laboratory Results Results Past 24 Hours Test 07/12/17 13:35 Range/Units White Blood Count 10.90 4.8-10.8 K/uL Red Blood Count 4.54 4.7-6.1 M/uL Hemoglobin 13.3 14.0-18.0 g/dL Hematocrit 39.6 42-52 % Mean Corpuscular Volume 87.2 80-100 fL Mean Corpuscular Hemoglobin 29.3 25-34 pg Mean Corpuscular Hemoglobin Concent 33.6 32-36 g/dl Platelet Count 141 130-400 K/uL Mean Platelet Volume 11.2 7.4-10.4 fL Neutrophils (%) (Auto) 81.0 % Lymphocytes (%) (Auto) 9.9 % Monocytes (%) (Auto) 7.7 % Eosinophils (%) (Auto) 0.6 % Basophils (%) (Auto) 0.3 % Neutrophils # (Auto) 8.84 1.4-6.5 K/uL Lymphocytes # (Auto) 1.08 1.2-3.4 K/uL Monocytes # (Auto) 0.84 0.11-0.59 K/uL Eosinophils # (Auto) 0.06 0-0.5 K/uL Basophils # (Auto) 0.03 0-0.2 K/uL RDW Standard Deviation 46.2 36.4-46.3 fL RDW Coefficient of Variation 14.5 11.5-14.5 % Immature Granulocyte % (Auto) 0.5 % Immature Granulocyte # (Auto) 0.05 0.00-0.02 K/uL Prothrombin Time 11.1 9.0-12.0 SECONDS Prothromb Time International Ratio 1.1 0.9-1.1 Activated Partial Thromboplast Time 25.4 21.0-31.0 SECONDS Partial Thromboplastin Ratio 1.0 Sodium Level 126 136-145 mmol/L Potassium Level 4.3 3.5-5.1 mmol/L Chloride Level 89 98-107 mmol/L Carbon Dioxide Level 29 21-32 mmol/L Anion Gap 9.0 3-11 mmol/L Blood Urea Nitrogen 16 7-18 mg/dl Creatinine 0.86 0.60-1.40 mg/dl Estimated GFR () 107.7 Estimated GFR (Non- 92.9 BUN/Creatinine Ratio 18.8 10-20 Random Glucose 259 70-99 mg/dl Calcium Level 8.5 8.5-10.1 mg/dl Total Bilirubin 1.0 0.2-1 mg/dl Aspartate Amino Transf (AST/SGOT) 39 15-37 U/L Alanine Aminotransferase (ALT/SGPT) 37 12-78 U/L Alkaline Phosphatase 87 45-117 U/L Total Creatine Kinase 94 39-308 U/L Creatine Kinase MB 3.7 0.5-3.6 ng/ml Creatine Kinase MB Ratio 3.9 0-3.0 Troponin I 0.038 0-0.045 ng/ml Total Protein 7.1 6.4-8.2 gm/dl Albumin 3.4 3.4-5.0 gm/dl Globulin 3.7 2.5-4.0 gm/dl Albumin/Globulin Ratio 0.9 0.9-2 Microbiology Results 07/12/17 Blood Culture, Received Pending 07/12/17 Blood Culture, Received Pending 07/12/17 Gram Stain, Received Pending 07/12/17 Sputum Culture, Received Pending Impression Assessment and Plan Mr. Tim is a 62 year old man here for increasing sob. COPD exacerbation/clinical PNA - admit tele - patient's chest xray unreliable given body habitus - will treat with vancomycin given history of pulmonary MRSA and levaquin - mucinex, duonebs, solumedrol q8h - sputum, blood cultures pending - contact precautions for hx of MRSA - continue home steroid inhalers Hyponatremia - chronic - NA 126 - baseline 128-130 - continue sodium supplement - 1500 ml FR - prp am A.fib - continue diltiazem, Xeralto CHF/htn/cad - continue lisinopril, diuretics, statin, ASA, potassium DM - pharmacy will not accept consult on patient as he does not ever comply with their recommendations, will prescribe his home dosing for now and may need to go up or add a sliding scale depending on how his bsgs do. - bsg ac&hs Lower right leg acute on chronic cellulitis - Levaquin, vancomycin Full code DVT prophylaxis - Adams Feldman daughter in law and son Jony would like to be contacted if there is an emergency - [phone] Level of Care Telemetry Advanced Directives Existing Advance Directive: Yes Existing Living Will: Yes Existing Power of Night Baker: Yes Existing Health Care Proxy: Yes Resuscitation Status FULL RESUSCITATION
[2017-07-12] MEDS ORDERED: PATIENT'S HEIGHT AND/OR WEIGHT NEEDED SCH (16:15)
[2017-07-12 16:57] VITALS: BP 177/90; PULSE 90; TEMP 36.6; BMI 59.6
[2017-07-12] MEDS ORDERED: VANCOMYCIN INJ 2,500 MG in SODIUM CHLORIDE 0.9% 500ML 500 ML IV ONE (17:00)
[2017-07-12] MEDS ORDERED: VANCOMYCIN CONSULT ACTIVE PRN (17:00)
[2017-07-12] MEDS ORDERED: METHYLPREDNISOLONE IV 80 MG in SYRINGE 0 ML IV ONE (17:00)
[2017-07-12 17:15] VITALS: O2SAT 97
[2017-07-12] MEDS: ALBUT/IPRATROP 3MG/0.5MG NEB 3 ML VIAL INH SCH (19:08)
--- NOTE | 2017-07-12 19:10 | Pharmacy Progress Note ---
Pharmacy Abx Initial Consult Date of Service Jul 12, 2017. Pharmacy Dosing Scope Date of Consult: 07/12/17 Consultation requested by: Wendi TURNER Pharmacy is consulted to initiate vancomycin IV dosing therapy, order appropriate labs and adjust drug dose/frequency. Subjective The patient is a 62 year old male admitted on Jul 12, 2017 at 15:29. Objective Height (Feet): 6 Height (Inches): 1.00 Weight (Kilograms): 205.000 Vital Signs (Past 12Hrs) Vital Signs Past 12 Hours Date Time Temp Pulse Resp B/P (MAP) Pulse Ox O2 Delivery O2 Flow Rate FiO2 07/12/17 17:15 97 Trach Collar 6.0 07/12/17 16:57 36.6 90 26 177/90 07/12/17 16:12 98 24 98 Trach Collar 10.0 35 07/12/17 15:11 113 22 128/90 97 Trach Collar 35 07/12/17 13:56 105 24 154/88 97 Trach Collar 10.0 35 07/12/17 13:23 106 18 94 Trach Collar 35 07/12/17 12:58 94 Trach Collar 10.0 35 07/12/17 12:57 95 Trach Collar 10.0 35 07/12/17 12:56 96 07/12/17 12:53 94 Humidified Oxygen 10.0 35 07/12/17 12:34 36.5 100 26 188/73 95 Room Air Lab Results (24Hrs) Laboratory Tests (24 Hours) Test 07/12/17 13:35 White Blood Count 10.90 K/uL (4.8-10.8) H Red Blood Count 4.54 M/uL (4.7-6.1) L Hemoglobin 13.3 g/dL (14.0-18.0) L Hematocrit 39.6 % (42-52) L Mean Corpuscular Volume 87.2 fL (80-100) Mean Corpuscular Hemoglobin 29.3 pg (25-34) Mean Corpuscular Hemoglobin Concent 33.6 g/dl (32-36) Platelet Count 141 K/uL (130-400) Mean Platelet Volume 11.2 fL (7.4-10.4) H Neutrophils (%) (Auto) 81.0 % Lymphocytes (%) (Auto) 9.9 % Monocytes (%) (Auto) 7.7 % Eosinophils (%) (Auto) 0.6 % Basophils (%) (Auto) 0.3 % Neutrophils # (Auto) 8.84 K/uL (1.4-6.5) H Lymphocytes # (Auto) 1.08 K/uL (1.2-3.4) L Monocytes # (Auto) 0.84 K/uL (0.11-0.59) H Eosinophils # (Auto) 0.06 K/uL (0-0.5) Basophils # (Auto) 0.03 K/uL (0-0.2) Total Creatine Kinase 94 U/L (39-308) Micro Results Date/Time Source Procedure Growth Status 07/12/17 13:35 Blood Blood Culture Pending Received 07/12/17 13:25 Blood Blood Culture Pending Received 07/12/17 13:00 Sputum Trans Trach Needle Asp. Gram Stain Pending Received 07/12/17 13:00 Sputum Trans Trach Needle Asp. Sputum Culture Pending Received Risk Factors for Resistance * History of infection with a multidrug-resistant organism: MRSA * Antimicrobial use within the last 90 days (yes but currently unknown) Assessment & Plan Assessment 62 year old male admitted with increased dyspnea x 1 week. He has a history of COPD and has a chronic trach. Plan vancomycin for treatment of pulmonary source infection Vancomycin IV * Loading dose: 2500 mg (12.5 mg/kg) * Maintenance dose: 2500 mg IV (12.5 mg/kg) every 10 hours (population pharmacokinetics suggest a half-life of 8 hours... previous data indicates that patient has therapeutic levels on q10 dosing therefore will utilize this. First dose not true load so started maintenance dose 2 hours sooner) * Goal trough level for pulmonary function with trach and h/o MRSA: 15 to 20 mcg /mL * Trough ordered for 07/14/17 prior to 0800 * A less than traditional dose has been selected due to likelihood of drug accumulation in obese patient. Pharmacy will continue to follow and will adjust dose/frequency as necessary. Thank you.
[2017-07-12 19:11] VITALS: PULSE 91; O2SAT 97
[2017-07-12 19:20] VITALS: BP 158/80; PULSE 99; TEMP 36.8; O2SAT 95
[2017-07-12 20:00] VITALS: O2SAT 30
[2017-07-12] MEDS: LORAZEPAM 1 MG TAB PO PRN (20:27)
[2017-07-12] MEDS: GUAIFENESIN 600 MG TABCR PO SCH (21:32)
[2017-07-12] MEDS: MAGNESIUM OXIDE 400 MG TAB PO SCH (21:32)
[2017-07-12] MEDS: METOPROLOL TARTRATE 25 MG TAB PO SCH (21:33)
[2017-07-12] MEDS: DORZOLAMIDE HCL 2% OPH SOLN 10 ML BTL OP SCH (21:33)
[2017-07-12] MEDS: POTASSIUM CHLORIDE 20 MEQ TABCR PO SCH (21:38)
[2017-07-12] MEDS: SPIRONOLACTONE 25 MG TAB PO SCH (21:38)
[2017-07-12] MEDS: LATANOPROST 0.005% OP SOLN 2.5 ML BTL OP SCH (21:41)
[2017-07-12] MEDS: INSULIN ASPART 100 UNITS/ML VIAL SC SCH (21:43)
[2017-07-12] MEDS: INSULIN GLARGINE SC SCH (21:43)
[2017-07-12] MEDS: TRAMADOL HCL 50 MG TAB PO PRN (21:51)
[2017-07-13] VITALS (16 sets, daily range): BP systolic 104–153; BP diastolic 56–85; PULSE 73–96; TEMP 36.4–37.3; O2SAT 30–99
[2017-07-13] MEDS: METHYLPREDNISOLONE IV 60 MG in SYRINGE 0 ML IV SCH ×3 (03:19→21:20)
[2017-07-13] MEDS: VANCOMYCIN INJ 2,500 MG in SODIUM CHLORIDE 0.9% 500ML 500 ML IV SCH ×3 (03:20→21:20)
[2017-07-13] MEDS: ALBUT/IPRATROP 3MG/0.5MG NEB 3 ML VIAL INH SCH ×5 (04:29→18:51)
[2017-07-13 06:24] LABS: HEMATOCRIT 38.9 % (42-52); MEAN CELL VOLUME 86.1 fL (80-100); MEAN CORPUSCULAR HEMOGLOBIN 29.6 pg (25-34); MEAN CORPUSCULAR HGB CONC 34.4 g/dl (32-36); MEAN PLATELET VOLUME 11.5 fL (7.4-10.4); PLATELET COUNT 159 K/uL (130-400); RED BLOOD COUNT 4.52 M/uL (4.7-6.1)
[2017-07-13 06:56] LABS: BUN/CREATININE RATIO 18.1 (10-20); CALCIUM 8.6 mg/dl (8.5-10.1); CREATININE 0.88 mg/dl (0.60-1.40); POTASSIUM 4.2 mmol/L (3.5-5.1)
[2017-07-13] MEDS ORDERED: VANCOMYCIN TROUGH ONE (07:30)
[2017-07-13] MEDS: RIVAROXABAN 20 MG TAB PO SCH (07:37)
[2017-07-13] MEDS: SPIRONOLACTONE 25 MG TAB PO SCH ×2 (07:37→21:22)
[2017-07-13] MEDS: SODIUM CHLORIDE 1 GM TAB PO SCH (07:38)
[2017-07-13] MEDS: BUMETANIDE 1 MG TAB PO SCH (07:38)
[2017-07-13] MEDS: POTASSIUM CHLORIDE 20 MEQ TABCR PO SCH ×2 (07:38→16:37)
[2017-07-13] MEDS: MAGNESIUM OXIDE 400 MG TAB PO SCH ×3 (07:39→21:21)
[2017-07-13] MEDS: CEROVITE ADV FORMULA TAB PO SCH (07:39)
[2017-07-13] MEDS: GUAIFENESIN 600 MG TABCR PO SCH ×2 (07:39→21:24)
[2017-07-13] MEDS: METOPROLOL TARTRATE 25 MG TAB PO SCH ×2 (07:39→21:24)
[2017-07-13] MEDS: ASPIRIN 81 MG ECTAB PO SCH (07:40)
[2017-07-13] MEDS: LISINOPRIL 10 MG TAB PO SCH (07:40)
[2017-07-13] MEDS: ATORVASTATIN 40 MG TAB PO SCH (07:40)
[2017-07-13] MEDS: ISOSORBIDE MONONITRATE 30 MG TABCR PO SCH (07:41)
[2017-07-13] MEDS: METOLAZONE 5 MG TAB PO SCH (07:41)
[2017-07-13] MEDS: DILTIAZEM HCL 120 MG ER CAP PO SCH (07:41)
[2017-07-13] MEDS: OMEGA-3 (PURIFIED FISH OIL) 1 GM CAP PO SCH (07:41)
[2017-07-13] MEDS: DORZOLAMIDE HCL 2% OPH SOLN 10 ML BTL OP SCH ×2 (07:42→21:18)
[2017-07-13] MEDS: BACITRACIN OINT 15 GM TUBE TOP SCH (07:42)
[2017-07-13] MEDS: INSULIN ASPART 100 UNITS/ML VIAL SC SCH ×3 (07:48→16:39)
[2017-07-13] MEDS: INSULIN GLARGINE SC SCH ×2 (07:49→21:43)
--- NOTE | 2017-07-13 11:02 | Hospitalist Progress Note ---
Hospitalist Progress Note Date of Service Jul 13, 2017. (Wendi Mckeon CRNP) Subjective Pt evaluation today including: conversation w/ patient, physical exam, chart review, lab review, review of inpatient medication list Mr. Tim says he feels somewhat better today but is still short of breath with yellow sputum producing cough. He is refusing his fluid restriction. He did agree to increase his insulin by a small amount. ROS Constitutional: no chills, aches, sweats or fever Respiratory: see HPI Cardiac: no chest pain, palpitations, edema, orthopnea or lightheadedness GI: no abdominal pain, nausea, vomiting, diarrhea or constipation : no dysuria or hesitancy Extremities: no joint pain or weakness Skin: no rash, right lower extremity swollen and red All Other Systems: Reviewed and Negative (Wendi Mckeon CRNP) Medications Medications Administered Medications (Trade) Dose Ordered Sig/Saige Route Start Time Stop Time Status Last Admin Dose Admin Albuterol/ Ipratropium (Duoneb) 12 ml ONE ONCE INH 07/12/17 13:00 07/12/17 13:01 DC 07/12/17 13:22 12 ML Levofloxacin (Levaquin / D5W) 750 mg NOW STAT IV 07/12/17 12:54 07/12/17 12:56 DC 07/12/17 14:13 750 MG Vancomycin HCl 2500 mg/Sodium Chloride 550 ml @ 200 mls/hr NOW ONCE IV 07/12/17 17:00 07/12/17 19:44 DC 07/12/17 18:07 200 MLS/HR Aspirin (Ecotrin Tab) 81 mg DAILY PO 07/13/17 09:00 08/12/17 08:59 07/13/17 07:40 81 MG Atorvastatin Calcium (Lipitor Tab) 80 mg DAILY PO 07/13/17 09:00 08/12/17 08:59 07/13/17 07:40 80 MG Diltiazem HCl (Dilacor Xr Cap) 120 mg DAILY PO 07/13/17 09:00 08/12/17 08:59 07/13/17 07:41 120 MG Dorzolamide HCl (Trusopt 2% Oph Soln) 1 drops BID OP 07/12/17 21:00 08/11/17 20:59 07/13/17 07:42 1 DROPS Fish Oil (Celestine-3 (Purified Fish Oil) Cap) 1 gm DAILY PO 07/13/17 09:00 08/12/17 08:59 07/13/17 07:41 1 GM Insulin Glargine (Lantus Vial) 95 units BID SC 07/12/17 21:00 08/11/17 20:59 07/13/17 07:49 95 UNITS Isosorbide Mononitrate (Imdur Ext Rel Tab) 30 mg DAILY PO 07/13/17 09:00 08/12/17 08:59 07/13/17 07:41 30 MG Latanoprost (Xalatan Oph Soln) 1 drops HS OP 07/12/17 21:00 08/11/17 20:59 07/12/17 21:41 1 DROPS Lisinopril (Zestril Tab) 10 mg DAILY PO 07/13/17 09:00 08/12/17 08:59 07/13/17 07:40 10 MG Lorazepam (Ativan Tab) 1 mg QID PRN PO 07/12/17 15:45 08/11/17 15:44 07/12/17 20:27 1 MG Magnesium Oxide (Mag-Ox Tab) 400 mg TID PO 07/12/17 21:00 08/11/17 20:59 07/13/17 07:39 400 MG Metolazone (Zaroxolyn Tab) 5 mg DAILY PO 07/13/17 09:00 08/12/17 08:59 07/13/17 07:41 5 MG Metoprolol Tartrate (Lopressor Tab) 25 mg BID PO 07/12/17 21:00 08/11/17 20:59 07/13/17 07:39 25 MG Multivitamins/ Minerals (Multivitamin W/ Minerals Tab) 1 tab DAILY PO 07/13/17 09:00 08/12/17 08:59 07/13/17 07:39 1 TAB Potassium Chloride (Klor-Con Tab) 60 meq BIDM PO 07/12/17 21:00 08/11/17 20:59 07/13/17 07:38 60 MEQ Rivaroxaban (Xarelto Tab) 20 mg DAILY PO 07/13/17 09:00 08/12/17 08:59 07/13/17 07:37 20 MG Sodium Chloride (Sodium Chloride Tab) 1 gm DAILY PO 07/13/17 09:00 08/12/17 08:59 07/13/17 07:38 1 GM Spironolactone (Aldactone Tab) 25 mg BID PO 07/12/17 21:00 08/11/17 20:59 07/13/17 07:37 25 MG Tramadol HCl (Ultram Tab) 50 mg Q8H PRN PO 07/12/17 15:45 08/11/17 15:44 07/12/17 21:51 50 MG Bacitracin (Bacitracin Oint) 1 appln DAILY TOP 07/13/17 09:00 08/12/17 08:59 07/13/17 07:42 1 APPLN Miscellaneous Information (Order Awaiting Action) 1 ea QS N/A 07/13/17 00:00 08/12/17 00:00 07/12/17 21:45 1 EA Miscellaneous Information (Order Awaiting Action) 1 ea QS N/A 07/13/17 00:00 08/12/17 00:00 07/12/17 21:45 1 EA Guaifenesin (Mucinex Contr Rel Tab) 1,200 mg BID PO 07/12/17 21:00 08/11/17 20:59 07/13/17 07:39 1,200 MG Albuterol/ Ipratropium (Duoneb) 3 ml QIDR INH 07/12/17 16:00 08/11/17 15:59 07/13/17 07:45 3 ML Methylprednisolone Sodium Succinate 80 mg/Syringe 1.28 ml @ 1.5 mls/min NOW ONCE IV 07/12/17 17:00 07/12/17 17:01 DC 07/12/17 17:32 1.5 MLS/MIN Bumetanide (Bumex Tab) 2 mg QAM PO 07/13/17 09:00 08/12/17 08:59 07/13/17 07:38 2 MG Methylprednisolone Sodium Succinate 60 mg/Syringe 0.96 ml @ 1.5 mls/min Q8H IV 07/13/17 02:00 08/12/17 01:59 07/13/17 07:37 1.5 MLS/MIN Insulin Aspart (novoLOG ASPART) 90 units QDD SC 07/12/17 16:45 08/11/17 17:59 07/12/17 21:43 90 UNITS Insulin Aspart (novoLOG ASPART) 95 units QDB SC 07/13/17 07:30 08/12/17 07:59 07/13/17 07:48 95 UNITS Vancomycin HCl 2500 mg/Sodium Chloride 550 ml @ 200 mls/hr Q10H IV 07/13/17 02:00 07/19/17 23:59 07/13/17 03:20 200 MLS/HR (Wendi Mckeon, JOHNNY) Objective Vital Signs Date Time Temp Pulse Resp B/P (MAP) Pulse Ox O2 Delivery O2 Flow Rate FiO2 07/13/17 08:00 37.3 90 18 137/78 (97) 98 Trach Collar 8.0 30 07/13/17 08:00 98 Trach Collar 8.0 30 07/13/17 07:45 95 18 98 Trach Collar 8.0 30 07/13/17 04:28 85 18 98 Trach Collar 8.0 30 07/13/17 04:00 30 Trach Collar 8.0 07/13/17 04:00 37.3 84 17 153/85 (107) 98 Humidified Oxygen 30 Trach Collar 07/13/17 00:06 37.0 84 22 133/76 (95) 99 Trach Collar 07/13/17 00:00 30 Trach Collar 10.0 07/12/17 20:00 30 Trach Collar 10.0 07/12/17 19:20 36.8 99 26 158/80 (106) 95 Trach Collar 6.0 07/12/17 19:11 91 20 97 Trach Collar 6.0 35 07/12/17 17:15 97 Trach Collar 6.0 07/12/17 16:57 36.6 90 26 177/90 07/12/17 16:12 98 24 98 Trach Collar 10.0 35 07/12/17 15:11 113 22 128/90 97 Trach Collar 35 07/12/17 13:56 105 24 154/88 97 Trach Collar 10.0 35 07/12/17 13:23 106 18 94 Trach Collar 35 07/12/17 12:58 94 Trach Collar 10.0 35 07/12/17 12:57 95 Trach Collar 10.0 35 07/12/17 12:56 96 07/12/17 12:53 94 Humidified Oxygen 10.0 35 07/12/17 12:34 36.5 100 26 188/73 95 Room Air (Wendi Mckeon CRNP) Physical Exam Notes: General: no distress Eyes: normal inspection, PERLL Respiratory: chest non tender, inspiratory wheezes throughout - no stridor, no respiratory distress, no accessory muscle use Cardiac: regular rate and rhythm, no rub or gallop, no murmur, no edema, no jvd GI/: active bowel sounds, no abd pain or tenderness, soft, non distended, obese Extremities: normal range of motion, normal strength, non tender Neuro/Psych: alert and oriented x 3, normal mood and affect Skin: normal color, dry, right lower extremity erythematous and edematous (Wendi Mckeon CRNP) Laboratory Results Last 24 Hours Test 07/12/17 13:35 07/12/17 18:57 07/13/17 06:00 07/13/17 07:11 White Blood Count 10.90 K/uL 9.60 K/uL Red Blood Count 4.54 M/uL 4.52 M/uL Hemoglobin 13.3 g/dL 13.4 g/dL Hematocrit 39.6 % 38.9 % Mean Corpuscular Volume 87.2 fL 86.1 fL Mean Corpuscular Hemoglobin 29.3 pg 29.6 pg Mean Corpuscular Hemoglobin Concent 33.6 g/dl 34.4 g/dl Platelet Count 141 K/uL 159 K/uL Mean Platelet Volume 11.2 fL 11.5 fL Neutrophils (%) (Auto) 81.0 % Lymphocytes (%) (Auto) 9.9 % Monocytes (%) (Auto) 7.7 % Eosinophils (%) (Auto) 0.6 % Basophils (%) (Auto) 0.3 % Neutrophils # (Auto) 8.84 K/uL Lymphocytes # (Auto) 1.08 K/uL Monocytes # (Auto) 0.84 K/uL Eosinophils # (Auto) 0.06 K/uL Basophils # (Auto) 0.03 K/uL RDW Standard Deviation 46.2 fL 45.0 fL RDW Coefficient of Variation 14.5 % 14.3 % Immature Granulocyte % (Auto) 0.5 % Immature Granulocyte # (Auto) 0.05 K/uL Prothrombin Time 11.1 SECONDS Prothromb Time International Ratio 1.1 Activated Partial Thromboplast Time 25.4 SECONDS Partial Thromboplastin Ratio 1.0 Sodium Level 126 mmol/L 126 mmol/L Potassium Level 4.3 mmol/L 4.2 mmol/L Chloride Level 89 mmol/L 91 mmol/L Carbon Dioxide Level 29 mmol/L 27 mmol/L Anion Gap 9.0 mmol/L 8.0 mmol/L Blood Urea Nitrogen 16 mg/dl 16 mg/dl Creatinine 0.86 mg/dl 0.88 mg/dl Estimated GFR () 107.7 106.7 Estimated GFR (Non- 92.9 92.1 BUN/Creatinine Ratio 18.8 18.1 Random Glucose 259 mg/dl 268 mg/dl Calcium Level 8.5 mg/dl 8.6 mg/dl Total Bilirubin 1.0 mg/dl Aspartate Amino Transf (AST/SGOT) 39 U/L Alanine Aminotransferase (ALT/SGPT) 37 U/L Alkaline Phosphatase 87 U/L Total Creatine Kinase 94 U/L Creatine Kinase MB 3.7 ng/ml Creatine Kinase MB Ratio 3.9 Troponin I 0.038 ng/ml Total Protein 7.1 gm/dl Albumin 3.4 gm/dl Globulin 3.7 gm/dl Albumin/Globulin Ratio 0.9 Bedside Glucose 242 mg/dl 263 mg/dl Est Creatinine Clear Calc Drug Dose 162.7 ml/min (Wendi Mckeon ., JOHNNY) Assessment and Plan Mr. Tim is a 62 year old man here for increasing sob. COPD exacerbation/clinical PNA - continue Vanco and levaquin - continue mucinex, duonebs, solumedrol q8h - sputum, blood cultures pending - contact precautions for hx of MRSA - continue home steroid inhalers Hyponatremia - chronic - NA 126 - baseline 128-130 - continue sodium supplement - discussed reasons for fluid restriction but patient refuses so order discontinued - prp am A.fib - rate controlled - continue diltiazem, Xeralto CHF/htn/cad - continue lisinopril, diuretics, statin, ASA, potassium DM - bsgs elevated in the 200s still - will increase lantus by 10 units bid - patient does not want to have his insulin increased by much but did agree to small increments at a time. Pharmacy did not feel they could consult on him because he always refuses their recommendations. - bsg ac&hs Lower right leg acute on chronic cellulitis - Levaquin, vancomycin Full code DVT prophylaxis - Xeralto Francia daughter in law and son Jony would like to be contacted if there is an emergency - [phone] (Wendi Mckeon ., JOHNNY) Attending Attestation: Pt seen/examined, chart reviewed, care plan d/w JOHNNY Mckeon. I agree w/ the jerez components of her documentation. Pt feeling better, but "not where I should be." Still w/ thick secretions via trach and mild dyspnea. VSS no fever gen - obese, no distress neck - trach in place, yellow secretions in inner canula no obvious JVD heart - irregular lungs - mild end-exp wheeze but good airation, no rales abd - obese, soft ext - trace edema b/l skin - stasis changes right leg/chambers but no warmth to suggest cellulitis/ infection A/P: 1. acute hypoxic resp failure 2nd to COPD w/ exacerbation - improved cut steroids to q12h cont abx - covering for possible pneumonia - has had multi-drug resistant strep in past thus, vanco + levaquin for now cultures pending 2. uncontrolled T2DM - add correction novolog with correction factor of 5; continue home regimen otherwise he will be difficult to control given the steroid use other plans per Ms. Linda Fink MD (Homer Fink MD)
--- NOTE | 2017-07-13 13:04 | Psych Management Progress Note ---
Psychiatry Miscellaneous Date of Service: Jul 13, 2017. Received psychiatric consult request for patient.Patient declined evaluation with male liason nurse or male psychiatrist and requested female. Staff nurse from behavioral health unit met with patient. Patient admits to being depressed and passive suicidal thoughts of wishing he were not living but denies any active thoughts to take his own life. Has possession of guns but was guarded about revealing how many guns he had and status of them being locked. Patient will be evaluated by female member of psychiatric service and assessed for suicidality and plan established for guns.
[2017-07-13] MEDS: LEVOFLOXACIN / D5W 750 MG in PREMIXED IN D5W 150 ML IV SCH (15:23)
[2017-07-13] MEDS: ACETYLCYSTEINE 20% INHAL SOLN ***DISPENSED BY RESP. INH SCH (15:25)
[2017-07-13] MEDS: LATANOPROST 0.005% OP SOLN 2.5 ML BTL OP SCH (21:18)
[2017-07-13] MEDS: TRAMADOL HCL 50 MG TAB PO PRN (21:19)
[2017-07-13] MEDS: LORAZEPAM 1 MG TAB PO PRN (21:19)
[2017-07-13] MEDS: INSULIN ASPART 100 UNITS/ML 3 ML PEN SC SCH (21:38)
[2017-07-14] VITALS (12 sets, daily range): BP systolic 119–144; BP diastolic 60–82; PULSE 68–82; TEMP 36.5–36.8; O2SAT 95–99; Ht 185.4 cm; Wt 208.1 kg
[2017-07-14] MEDS: METHYLPREDNISOLONE IV 60 MG in SYRINGE 0 ML IV SCH ×2 (07:46→22:02)
[2017-07-14] MEDS: POTASSIUM CHLORIDE 20 MEQ TABCR PO SCH ×2 (07:46→16:59)
[2017-07-14] MEDS: DILTIAZEM HCL 120 MG ER CAP PO SCH (07:46)
[2017-07-14] MEDS: GUAIFENESIN 600 MG TABCR PO SCH ×2 (07:47→22:02)
[2017-07-14] MEDS: BUMETANIDE 1 MG TAB PO SCH (07:47)
[2017-07-14] MEDS: LISINOPRIL 10 MG TAB PO SCH (07:47)
[2017-07-14] MEDS: SODIUM CHLORIDE 1 GM TAB PO SCH (07:48)
[2017-07-14] MEDS: SPIRONOLACTONE 25 MG TAB PO SCH ×2 (07:48→22:00)
[2017-07-14] MEDS: ISOSORBIDE MONONITRATE 30 MG TABCR PO SCH (07:48)
[2017-07-14] MEDS: OMEGA-3 (PURIFIED FISH OIL) 1 GM CAP PO SCH (07:49)
[2017-07-14] MEDS: RIVAROXABAN 20 MG TAB PO SCH (07:49)
[2017-07-14] MEDS: METOLAZONE 5 MG TAB PO SCH (07:49)
[2017-07-14] MEDS: MAGNESIUM OXIDE 400 MG TAB PO SCH ×3 (07:49→22:01)
[2017-07-14] MEDS: BACITRACIN OINT 15 GM TUBE TOP SCH (07:50)
[2017-07-14] MEDS: METOPROLOL TARTRATE 25 MG TAB PO SCH ×2 (07:50→22:01)
[2017-07-14] MEDS: ATORVASTATIN 40 MG TAB PO SCH (07:50)
[2017-07-14] MEDS: ASPIRIN 81 MG ECTAB PO SCH (07:50)
[2017-07-14] MEDS: CEROVITE ADV FORMULA TAB PO SCH (07:50)
[2017-07-14] MEDS: INSULIN ASPART 100 UNITS/ML 3 ML PEN SC SCH ×4 (07:52→22:05)
[2017-07-14] MEDS: INSULIN ASPART 100 UNITS/ML VIAL SC SCH ×3 (07:53→16:58)
[2017-07-14] MEDS: INSULIN GLARGINE SC SCH ×2 (07:54→22:06)
[2017-07-14] MEDS: ALBUT/IPRATROP 3MG/0.5MG NEB 3 ML VIAL INH SCH ×4 (07:56→19:29)
[2017-07-14] MEDS: VANCOMYCIN INJ 2,500 MG in SODIUM CHLORIDE 0.9% 500ML 500 ML IV SCH ×2 (07:56→16:59)
[2017-07-14] MEDS: DORZOLAMIDE HCL 2% OPH SOLN 10 ML BTL OP SCH ×2 (07:56→22:00)
[2017-07-14 08:05] LABS: HEMATOCRIT 38.2 % (42-52); MEAN CELL VOLUME 86.4 fL (80-100); MEAN CORPUSCULAR HEMOGLOBIN 29.4 pg (25-34); MEAN PLATELET VOLUME 11.7 fL (7.4-10.4); PLATELET COUNT 169 K/uL (130-400); RED BLOOD COUNT 4.42 M/uL (4.7-6.1); WHITE BLOOD COUNT 15.94 K/uL (4.8-10.8)
[2017-07-14 08:42] LABS: BUN/CREATININE RATIO 23.1 (10-20); CALCIUM 8.6 mg/dl (8.5-10.1); CREATININE 0.88 mg/dl (0.60-1.40); POTASSIUM 4.1 mmol/L (3.5-5.1)
--- NOTE | 2017-07-14 08:58 | Psychiatric Consultation ---
Consultation Date of Consultation Jul 14, 2017. Identifying Data Mr. Tim is a 62 yo male who lives with his family in [place]. Consult is by Dr. Mckeon for depression. He was admitted on 07/12/17 for COPD exacerbation and hyponatremia. Initial consult was attempted on that date but patient refused to meet with male rn provider relations. Chief Complaint "the surgeon gave me a sentence". 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 He has experienced worsening depression for the past 4-5 months after being "turned down" for gastric bypass surgery by 3 different surgeons given risk of anesthesia/procedure given his multitude of health issues. He is used to being independent and stubborn and how feels increasingly hopeless and a burden on his family. His is also dealing with health issues and O2 dependent. He admits that he thinks about ending his life and has had plans in past including using a gun. He clearly denies SI currently and describes that he wouldn't want his family to find him or to leave his grandchildren. He does plan to remove guns from the home by [employer] (gifting to family). He admits that he has been using Ativan 1 mg prn more regularly and PDMP database query shows he has been filling 120 tabs monthly. He admits that he "doubles up" at times at night to assist sleep and realizes that this could have a negative impact on his apnea. His appetite has varied and he losing interest in things when he is in/out of the hospital. He used to be an avid outdoorsman. Other stressors include his oldest daughter recently moving back in to the home as well as she got "jammed up". Past Psychiatric History Current OP Treatment: no current treatment Prior OP Treatment: psychiatrist (?"years ago", can't remember name) Access to a Gun: Yes (in a safe) Suicide Attempts: No Past Medication Trials denied other than benzo, did take Wellbutrin briefly for smoking cessation Past Medical/Surgical History (1) COPD exacerbation (2) Sepsis due to Streptococcus pneumoniae (3) Cellulitis (4) Hyponatremia (5) Morbid obesity (6) Diabetes (7) Hyperlipidemia Allergies Allergies: Coded Allergies: Cool (Verified Allergy, Severe, Difficulty breathing, 07/12/17) Sodium Hypochlorite (Verified Allergy, Unknown, HIVES AND RESPIRATORY DIFFICULTY FROM CLOROX, 07/12/17) Home Medications Scheduled Aspirin (Aspirin 81), 81 MG PO DAILY Atorvastatin (Lipitor), 80 MG PO DAILY Bacitracin (Topical) (Bacitracin), 1 APPLN TOP DAILY Beclomethasone Dipropionate (N (Qnasl), 1 SPRY SIMBA DAILY Bumetanide (Bumex), 1 TAB PO DAILY Desloratadine (Clarinex), 5 MG PO DAILY Diltiazem Hcl (Diltiazem Hcl Er), 1 CAP PO DAILY Dorzolamide Hcl (Trusopt Oph), 1 DROPS OP BID Fish Oil (Albert-3), 1 CAP PO DAILY Fluticasone Furoate (Inhalatio (Arnuity Ellipta), 1 PUFF INH DAILY Glucagon (Glucagon Emergency Kit), 1 DOSE INJ UD Guaifenesin (Mucinex Maximum Strength), 1,200 MG PO BID Insulin Aspart (Novolog Flexpen), 95 UNITS SQ BREAKFAST Insulin Aspart (Novolog Flexpen), 65 UNITS SC LUNCH Insulin Aspart (Novolog Flexpen), 90 UNITS SC DINNER Insulin Glargine (Lantus Solostar), 95 UNITS SC BID Ipratropium-Albuterol (Duoneb), 1 TREATMENT INH Q4H Isosorbide Mononitrate (Isosorbide Mononitrate ER), 30 MG PO DAILY Latanoprost (Xalatan 0.005% Oph Vanessa), 1 DROPS OP HS Lisinopril (Zestril), 10 MG PO DAILY Magnesium Oxide (Mag-Ox), 400 MG PO TID Metolazone (Zaroxolyn), 5 MG PO DAILY Metoprolol Tartrate (Lopressor) (Lopressor), 25 MG PO BID Multivitamins/Minerals (Mvi With Minerals), 1 TAB PO DAILY Nitroglycerin (Nitrostat), 1 TAB SL UD Potassium Ext Rel (Klor-Con), 3 TAB PO BID Rivaroxaban (Xarelto), 20 MG PO DAILY Sodium Chloride (Sodium Chloride), 1 GM PO DAILY Spironolactone (Aldactone), 25 MG PO BID Scheduled PRN Albuterol Hfa (Ventolin Hfa), 1 PUFFS INH QID PRN for SOB/Wheezing Lorazepam (Lorazepam), 1 MG PO QID PRN for Anxiety Tramadol (Ultram), 50 MG PO Q8H PRN for Pain Family History Diabetes mellitus Heart disease Hypertension History of Suicide: No (but 's sister hung herself a year ago) History of Substance Abuse: Yes (daughter "drug issues") Psychiatric History: Yes (mother depression requring an inpatient stay when he was a child) Alcohol Use Alcohol Use In Past 12 Months: No drank when in the service Smoking Use Smoking Status: Former Smoker Substance History denied Personal History Lives in: [place] with , tejas, son-in-law, their children and oldest daught Childhood: born and raised in [place] Education: graduated from high school Work History: [employer] for 3 years, 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 Examination Vital Signs Vital Signs Past 12 Hours Date Time Temp Pulse Resp B/P (MAP) Pulse Ox O2 Delivery O2 Flow Rate FiO2 07/14/17 08:00 98 Trach Collar 8.0 30 07/14/17 07:50 36.5 77 24 144/82 (102) 99 Trach Collar 6.0 30 07/14/17 04:14 36.5 76 22 136/69 (91) 99 Trach Collar 07/14/17 04:00 Trach Collar 8.0 30 07/14/17 00:00 Trach Collar 8.0 30 07/13/17 23:44 36.6 73 20 117/58 (77) 97 Trach Collar 07/13/17 21:28 36.6 77 21 137/78 (97) 98 Trach Collar 8.0 30 Laboratory Results Last 24 Hours Test 07/13/17 10:44 07/13/17 16:16 07/13/17 20:26 07/14/17 06:42 Bedside Glucose 279 mg/dl 299 mg/dl 266 mg/dl 243 mg/dl Test 07/14/17 07:18 White Blood Count 15.94 K/uL Red Blood Count 4.42 M/uL Hemoglobin 13.0 g/dL Hematocrit 38.2 % Mean Corpuscular Volume 86.4 fL Mean Corpuscular Hemoglobin 29.4 pg Mean Corpuscular Hemoglobin Concent 34.0 g/dl RDW Standard Deviation 45.6 fL RDW Coefficient of Variation 14.5 % Platelet Count 169 K/uL Mean Platelet Volume 11.7 fL Vancomycin Level Trough 12.0 mcg/ml Mental Examination During interview pt is: alert and oriented Appearance: appropriately groomed Eye contact is: fair Motor behavior is: no abnormal motor movements Speech: normal in rate, rhythm & volume Affect: depressed Mood is: depressed Thought process: clear, coherent Thought content: reality based without delusions Suicidal thought are: denied Homicidal thoughts are: denied Hallucinations: denies auditory, denies visual Cognition: attention grossly intact, language grossly intact Intelligence estimated to be: consistent with level of education Insight: limited Judgement: limited Impression / Recommendations Impression 62 yo male with depression due to complex medical conditions, inability to undergo gastric bypass for his morbid obesity given severity of underlying COPD/ apnea. He has had suicidal thoughts intermittently over the past 3 months, denies currently. Recommendations Major depressive disorder, first episode, severe plan: Case reviewed with Dr. Hand prior to examining the patient. Reviewed concerns about patient taking high dose Ativan given his respiratory status/ apnea. Ideally this would be tapered as outpatient. Reviewed with patient that he is high risk for suicide and has access to guns, meds, and insulin. [facility] would like to communicate with his around securing guns; he relates daughter oversees his medications/trach care. There is no indication for inpatient psychiatric hospitalization at this time. He was initially resistant to liaison contacting but by end of discussion was agreeable to sign JONATHAN for to facilitate referral to [facility] as they had already been seeking care there. Liaison to notify family to secure weapons/safety plan. He would be agreeable to a trial of Prozac. Am lytes still pending. SSRIs can contribute to hyponatremia so will defer to Dr. Hand on the timing of the trial.
[2017-07-14] MEDS: ACETYLCYSTEINE 20% INHAL SOLN ***DISPENSED BY RESP. INH SCH ×3 (09:00→19:30)
--- NOTE | 2017-07-14 12:39 | Hospitalist Progress Note ---
Hospitalist Progress Note Date of Service Jul 14, 2017. (Wendi Mckeon ., JOHNNY) Subjective Pt evaluation today including: conversation w/ patient, physical exam, chart review, lab review, review of inpatient medication list Voiding: no voiding problems Mr. Tim reports marginal improvements to his sob and sputum production today. He is eating and drinking well, no problems with bowel or bladder. ROS Constitutional: no chills, aches, sweats or fever Respiratory: see HPI Cardiac: no chest pain, palpitations, edema, orthopnea or lightheadedness GI: no abdominal pain, nausea, vomiting, diarrhea or constipation : no dysuria or hesitancy Extremities: no joint pain or weakness Skin: no rash, lower extremity pvd stable All Other Systems: Reviewed and Negative (Wendi Mckeon CRNP) Medications Medications Administered Medications (Trade) Dose Ordered Sig/Saige Route Start Time Stop Time Status Last Admin Dose Admin Albuterol/ Ipratropium (Duoneb) 12 ml ONE ONCE INH 07/12/17 13:00 07/12/17 13:01 DC 07/12/17 13:22 12 ML Levofloxacin (Levaquin / D5W) 750 mg NOW STAT IV 07/12/17 12:54 07/12/17 12:56 DC 07/12/17 14:13 750 MG Vancomycin HCl 2500 mg/Sodium Chloride 550 ml @ 200 mls/hr NOW ONCE IV 07/12/17 17:00 07/12/17 19:44 DC 07/12/17 18:07 200 MLS/HR Levofloxacin 750 mg/Prmx 150 ml @ 100 mls/hr Q24H IV 07/13/17 14:00 07/18/17 15:29 07/13/17 15:23 100 MLS/HR Aspirin (Ecotrin Tab) 81 mg DAILY PO 07/13/17 09:00 08/12/17 08:59 07/14/17 07:50 81 MG Atorvastatin Calcium (Lipitor Tab) 80 mg DAILY PO 07/13/17 09:00 08/12/17 08:59 07/14/17 07:50 80 MG Diltiazem HCl (Dilacor Xr Cap) 120 mg DAILY PO 07/13/17 09:00 08/12/17 08:59 07/14/17 07:46 120 MG Dorzolamide HCl (Trusopt 2% Oph Soln) 1 drops BID OP 07/12/17 21:00 08/11/17 20:59 07/14/17 07:56 1 DROPS Fish Oil (Cambria-3 (Purified Fish Oil) Cap) 1 gm DAILY PO 07/13/17 09:00 08/12/17 08:59 07/14/17 07:49 1 GM Insulin Glargine (Lantus Vial) 95 units BID SC 07/12/17 21:00 07/13/17 11:00 DC 07/13/17 07:49 95 UNITS Isosorbide Mononitrate (Imdur Ext Rel Tab) 30 mg DAILY PO 07/13/17 09:00 08/12/17 08:59 07/14/17 07:48 30 MG Latanoprost (Xalatan Oph Soln) 1 drops HS OP 07/12/17 21:00 08/11/17 20:59 07/13/17 21:18 1 DROPS Lisinopril (Zestril Tab) 10 mg DAILY PO 07/13/17 09:00 08/12/17 08:59 07/14/17 07:47 10 MG Lorazepam (Ativan Tab) 1 mg QID PRN PO 07/12/17 15:45 08/11/17 15:44 07/13/17 21:19 1 MG Magnesium Oxide (Mag-Ox Tab) 400 mg TID PO 07/12/17 21:00 08/11/17 20:59 07/14/17 07:49 400 MG Metolazone (Zaroxolyn Tab) 5 mg DAILY PO 07/13/17 09:00 08/12/17 08:59 07/14/17 07:49 5 MG Metoprolol Tartrate (Lopressor Tab) 25 mg BID PO 07/12/17 21:00 08/11/17 20:59 07/14/17 07:50 25 MG Multivitamins/ Minerals (Multivitamin W/ Minerals Tab) 1 tab DAILY PO 07/13/17 09:00 08/12/17 08:59 07/14/17 07:50 1 TAB Potassium Chloride (Klor-Con Tab) 60 meq BIDM PO 07/12/17 21:00 08/11/17 20:59 07/14/17 07:46 60 MEQ Rivaroxaban (Xarelto Tab) 20 mg DAILY PO 07/13/17 09:00 08/12/17 08:59 07/14/17 07:49 20 MG Sodium Chloride (Sodium Chloride Tab) 1 gm DAILY PO 07/13/17 09:00 08/12/17 08:59 07/14/17 07:48 1 GM Spironolactone (Aldactone Tab) 25 mg BID PO 07/12/17 21:00 08/11/17 20:59 07/14/17 07:48 25 MG Tramadol HCl (Ultram Tab) 50 mg Q8H PRN PO 07/12/17 15:45 08/11/17 15:44 07/13/17 21:19 50 MG Bacitracin (Bacitracin Oint) 1 appln DAILY TOP 07/13/17 09:00 08/12/17 08:59 07/14/17 07:50 1 APPLN Miscellaneous Information (Order Awaiting Action) 1 ea QS N/A 07/13/17 00:00 08/12/17 00:00 07/13/17 21:44 1 EA Miscellaneous Information (Order Awaiting Action) 1 ea QS N/A 07/13/17 00:00 08/12/17 00:00 07/13/17 21:44 1 EA Guaifenesin (Mucinex Contr Rel Tab) 1,200 mg BID PO 07/12/17 21:00 08/11/17 20:59 07/14/17 07:47 1,200 MG Albuterol/ Ipratropium (Duoneb) 3 ml QIDR INH 07/12/17 16:00 08/11/17 15:59 07/14/17 07:56 3 ML Methylprednisolone Sodium Succinate 80 mg/Syringe 1.28 ml @ 1.5 mls/min NOW ONCE IV 07/12/17 17:00 07/12/17 17:01 DC 07/12/17 17:32 1.5 MLS/MIN Bumetanide (Bumex Tab) 2 mg QAM PO 07/13/17 09:00 08/12/17 08:59 07/14/17 07:47 2 MG Methylprednisolone Sodium Succinate 60 mg/Syringe 0.96 ml @ 1.5 mls/min Q8H IV 07/13/17 02:00 07/13/17 17:10 DC 07/13/17 07:37 1.5 MLS/MIN Insulin Aspart (novoLOG ASPART) 65 units QDL SC 07/13/17 11:00 08/12/17 10:59 07/13/17 11:57 65 UNITS Insulin Aspart (novoLOG ASPART) 90 units QDD SC 07/12/17 16:45 08/11/17 17:59 07/13/17 16:39 90 UNITS Insulin Aspart (novoLOG ASPART) 95 units QDB SC 07/13/17 07:30 08/12/17 07:59 07/14/17 07:53 95 UNITS Vancomycin HCl 2500 mg/Sodium Chloride 550 ml @ 200 mls/hr Q10H IV 07/13/17 02:00 07/19/17 23:59 07/14/17 07:56 200 MLS/HR Insulin Glargine (Lantus Vial) 105 units BID SC 07/13/17 21:00 08/11/17 20:59 07/14/17 07:54 105 UNITS Acetylcysteine (Mucomyst 20% Inh Soln) 3 ml TIDR INH 07/13/17 15:00 08/12/17 14:59 07/13/17 15:25 3 ML Methylprednisolone Sodium Succinate 60 mg/Syringe 0.96 ml @ 1.5 mls/min Q12H IV 07/13/17 22:00 08/12/17 01:59 07/14/17 07:46 1.5 MLS/MIN Insulin Aspart (novoLOG ASPART) SLIDING SCALE G... ACHS SC 07/13/17 21:00 08/12/17 20:59 07/14/17 07:52 24 UNITS (Wendi Mckeon CRNP) Objective Vital Signs Date Time Temp Pulse Resp B/P (MAP) Pulse Ox O2 Delivery O2 Flow Rate FiO2 07/14/17 11:26 36.6 71 20 119/65 (83) 95 Room Air 07/14/17 08:00 98 Trach Collar 8.0 30 07/14/17 07:50 36.5 77 24 144/82 (102) 99 Trach Collar 6.0 30 07/14/17 04:14 36.5 76 22 136/69 (91) 99 Trach Collar 07/14/17 04:00 Trach Collar 8.0 30 07/14/17 00:00 Trach Collar 8.0 30 07/13/17 23:44 36.6 73 20 117/58 (77) 97 Trach Collar 07/13/17 21:28 36.6 77 21 137/78 (97) 98 Trach Collar 8.0 30 07/13/17 20:00 Trach Collar 8.0 30 07/13/17 19:35 36.4 83 18 104/56 (72) 98 Trach Collar 07/13/17 18:53 83 20 98 Room Air 07/13/17 16:00 Trach Collar 8.0 30 07/13/17 15:25 96 18 96 Trach Collar 8.0 30 07/13/17 15:20 95 19 108/62 (77) 99 Trach Collar 07/13/17 14:57 89 18 93 Trach Collar 8.0 30 07/13/17 12:13 93 18 95 Trach Collar 8.0 30 07/13/17 12:00 98 Trach Collar 8.0 30 (Wendi Mckeon CRNP) Physical Exam Notes: General: no distress Eyes: normal inspection, PERLL Respiratory: chest non tender, expiratory wheezes throughout, no respiratory distress, no accessory muscle use Cardiac: irregular rate and rhythm, no rub or gallop, no murmur, no edema, no jvd GI/: active bowel sounds, no abd pain or tenderness, soft, non distended Extremities: normal range of motion, normal strength, non tender Neuro/Psych: alert and oriented x 3, normal mood and affect Skin: normal color, dry (Wendi Mckeon CRNP) Laboratory Results Last 24 Hours Test 07/13/17 16:16 07/13/17 20:26 07/14/17 06:42 07/14/17 07:18 Bedside Glucose 299 mg/dl 266 mg/dl 243 mg/dl White Blood Count 15.94 K/uL Red Blood Count 4.42 M/uL Hemoglobin 13.0 g/dL Hematocrit 38.2 % Mean Corpuscular Volume 86.4 fL Mean Corpuscular Hemoglobin 29.4 pg Mean Corpuscular Hemoglobin Concent 34.0 g/dl RDW Standard Deviation 45.6 fL RDW Coefficient of Variation 14.5 % Platelet Count 169 K/uL Mean Platelet Volume 11.7 fL Sodium Level 130 mmol/L Potassium Level 4.1 mmol/L Chloride Level 94 mmol/L Carbon Dioxide Level 28 mmol/L Anion Gap 8.0 mmol/L Blood Urea Nitrogen 20 mg/dl Creatinine 0.88 mg/dl Est Creatinine Clear Calc Drug Dose 162.1 ml/min Estimated GFR () 106.7 Estimated GFR (Non- 92.1 BUN/Creatinine Ratio 23.1 Random Glucose 244 mg/dl Calcium Level 8.6 mg/dl Vancomycin Level Trough 12.0 mcg/ml Test 07/14/17 11:24 Bedside Glucose 257 mg/dl (Wendi Mckeon, JOHNNY) Assessment and Plan Mr. Tim is a 62 year old man here for increasing sob. COPD exacerbation/clinical PNA - continue Vanco and levaquin - patient had reported taking levaquin outpatient but last renewal was 07/11 and he did not know when he started taking it so would continue for seven days ending 07/18 - continue mucinex, duonebs, solumedrol decreased to q12h - BC no growth, sputum light normal mo - contact precautions for hx of MRSA - continue home steroid inhalers Hyponatremia - chronic - NA 130 - baseline 128-130 - continue sodium supplement - discussed reasons for fluid restriction but patient refuses so order discontinued - prp am Depression - consulted psych who recommend prozac - watch serum sodium closely with SSRI administration A.fib - rate controlled - continue diltiazem, Xeralto CHF/htn/cad - continue lisinopril, diuretics, statin, ASA, potassium DM - Patient is extremely insulin resistant receiving 440 units of insulin per day at home between his lantus and novolog. Bsgs continue to be elevated in the 200s despite increase in lantus and addition of sliding scale to home dose rapid acting yesterday - will increase lantus by 10 units bid again today - bsg ac&hs Full code DVT prophylaxis - Xeralto Francia daughter in law and son Jony would like to be contacted if there is an emergency - [phone] (Wendi Mckeon CRNP) Attending Attestation: Pt seen/examined, chart reviewed, care plan d/w JOHNNY Mckeon. I agree w/ the jerez components of her documentation. In better spirits today. Less cough, less wheeze, and sputum production also "not as thick." Tele stable overnight (rate controlled a. fib). VSS no fever gen - obese, no distress neck - trach in place; no obvious JVD heart - irregular, rate <100 lungs - mild end-exp wheeze b/l abd - obese, soft ext - lymphedema right leg, trace edema left leg, pulses 2+ b/l skin - stasis changes right leg/chambers but no warmth to suggest cellulitis/ infection; very dry skin both feet A/P: 1. acute hypoxic resp failure 2nd to COPD w/ exacerbation - improved no change in steroids today cont abx - covering for possible pneumonia - has had multi-drug resistant strep in past and MRSA thus, vanco + levaquin for now cultures pending but thus far negative can change levaquin to PO form 2. uncontrolled T2DM - increase correction factor to 4; adjust lantus per Ms. Mckeon. 3. MDD - agree with prozac; watch for sodium worsening progressing other plans per Ms. Linda Fink MD (Homer Fink MD)
[2017-07-14] MEDS ORDERED: INSULIN GLARGINE SC ONE (13:00)
[2017-07-14] MEDS ORDERED: FLUOXETINE HCL 10 MG CAP PO ONE (13:00)
--- NOTE | 2017-07-14 13:43 | Pharmacy Progress Note ---
Pharmacy Abx Dose Short Note Date of Service Jul 14, 2017. Assessment & Plan Assessment 62 year old male receiving vancomycin/levaquin for treatment of pneumonia. Per MICROFILMER, it is unknown the length of outpatient antibiotic therapy and therefore will continue both antibiotics until the , for a stop date was entered. Trough is a little low today, but given large dose and obesity, will expect this to accumulate. I will therefore continue current dose and recheck a level in two days to assess. Plan Vancomycin * Trough level of 12 mcg/mL is slightly subtherapeutic * Continue dose of 2500 mg IV every 10 hours * Trough or random level ordered for: 07/15/17 @0930 Pharmacy will continue to follow and will adjust dose/frequency as necessary. Thank you.
[2017-07-14] MEDS: LEVOFLOXACIN / D5W 750 MG in PREMIXED IN D5W 150 ML IV SCH (14:04)
[2017-07-14] MEDS: LORAZEPAM 1 MG TAB PO PRN ×2 (14:05→22:02)
[2017-07-14] MEDS: LATANOPROST 0.005% OP SOLN 2.5 ML BTL OP SCH (21:59)
[2017-07-14] MEDS: TRAMADOL HCL 50 MG TAB PO PRN (22:03)
[2017-07-15] VITALS (13 sets, daily range): BP systolic 112–168; BP diastolic 50–73; PULSE 63–113; TEMP 36.5–36.8; O2SAT 90–99
[2017-07-15] MEDS: VANCOMYCIN INJ 2,500 MG in SODIUM CHLORIDE 0.9% 500ML 500 ML IV SCH ×2 (04:25→14:10)
[2017-07-15 06:21] LABS: HEMATOCRIT 39.8 % (42-52); MEAN CELL VOLUME 86.9 fL (80-100); MEAN CORPUSCULAR HEMOGLOBIN 29.5 pg (25-34); MEAN CORPUSCULAR HGB CONC 33.9 g/dl (32-36); MEAN PLATELET VOLUME 11.3 fL (7.4-10.4); PLATELET COUNT 175 K/uL (130-400); RED BLOOD COUNT 4.58 M/uL (4.7-6.1); WHITE BLOOD COUNT 14.76 K/uL (4.8-10.8)
[2017-07-15 06:40] LABS: BUN/CREATININE RATIO 24.7 (10-20); CALCIUM 8.7 mg/dl (8.5-10.1); CREATININE 0.83 mg/dl (0.60-1.40); POTASSIUM 3.7 mmol/L (3.5-5.1)
[2017-07-15] MEDS: ALBUT/IPRATROP 3MG/0.5MG NEB 3 ML VIAL INH SCH ×4 (07:14→19:23)
[2017-07-15] MEDS: ACETYLCYSTEINE 20% INHAL SOLN ***DISPENSED BY RESP. INH SCH ×3 (07:15→19:23)
[2017-07-15] MEDS: GUAIFENESIN 600 MG TABCR PO SCH ×2 (07:59→21:59)
[2017-07-15] MEDS: CEROVITE ADV FORMULA TAB PO SCH (07:59)
[2017-07-15] MEDS: ISOSORBIDE MONONITRATE 30 MG TABCR PO SCH (07:59)
[2017-07-15] MEDS: ASPIRIN 81 MG ECTAB PO SCH (08:00)
[2017-07-15] MEDS: ATORVASTATIN 40 MG TAB PO SCH (08:00)
[2017-07-15] MEDS: MAGNESIUM OXIDE 400 MG TAB PO SCH ×3 (08:01→21:58)
[2017-07-15] MEDS: METOLAZONE 5 MG TAB PO SCH (08:02)
[2017-07-15] MEDS: DILTIAZEM HCL 120 MG ER CAP PO SCH (08:02)
[2017-07-15] MEDS: FLUOXETINE HCL 20 MG CAP PO SCH (08:02)
[2017-07-15] MEDS: RIVAROXABAN 20 MG TAB PO SCH (08:03)
[2017-07-15] MEDS: SODIUM CHLORIDE 1 GM TAB PO SCH (08:03)
[2017-07-15] MEDS: METHYLPREDNISOLONE IV 60 MG in SYRINGE 0 ML IV SCH (08:03)
[2017-07-15] MEDS: BUMETANIDE 1 MG TAB PO SCH (08:03)
[2017-07-15] MEDS: LISINOPRIL 10 MG TAB PO SCH (08:04)
[2017-07-15] MEDS: OMEGA-3 (PURIFIED FISH OIL) 1 GM CAP PO SCH (08:04)
[2017-07-15] MEDS: METOPROLOL TARTRATE 25 MG TAB PO SCH ×2 (08:08→22:00)
[2017-07-15] MEDS: BACITRACIN OINT 15 GM TUBE TOP SCH ×2 (08:08→08:28)
[2017-07-15] MEDS: DORZOLAMIDE HCL 2% OPH SOLN 10 ML BTL OP SCH ×2 (08:09→21:55)
[2017-07-15] MEDS: SPIRONOLACTONE 25 MG TAB PO SCH ×2 (08:09→21:57)
[2017-07-15] MEDS: POTASSIUM CHLORIDE 20 MEQ TABCR PO SCH ×2 (08:10→16:50)
[2017-07-15] MEDS: INSULIN ASPART 100 UNITS/ML 3 ML PEN SC SCH ×4 (08:12→21:00)
[2017-07-15] MEDS: INSULIN ASPART 100 UNITS/ML VIAL SC SCH ×3 (08:20→16:54)
[2017-07-15] MEDS: INSULIN GLARGINE SC SCH ×2 (08:21→21:53)
[2017-07-15] MEDS: TRAMADOL HCL 50 MG TAB PO PRN ×2 (08:26→21:51)
--- NOTE | 2017-07-15 16:17 | Progress Note ---
Subjective Date of Service: Jul 15, 2017. Subjective Pt evaluation today including: conversation w/ patient, physical exam, chart review, lab review, review of inpatient medication list Pain: none reported PO Intake: improved Voiding: no voiding problems tele - rate-controlled denise celaya "the mucomyst is helping to break it up" he reports less cough, less dyspnea, less secretions via trach not as thick glycemic control also better Problem List Medical Problems: (1) Acute bronchitis Status: Acute (2) Atrial fibrillation with rapid ventricular response Status: Acute (3) Back pain Status: Acute (4) Cellulitis Status: Acute (5) Cellulitis of right lower extremity Status: Acute (6) Congestive heart failure Status: Acute (7) Dyspnea Status: Acute (8) Failure of outpatient treatment Status: Acute (9) Hyperglycemia Status: Acute (10) Morbid obesity Status: Chronic (11) Pneumonia Status: Acute (12) Pneumonia Status: Acute (13) Pneumonia Status: Acute (14) Respiratory distress Status: Acute (15) Respiratory failure Status: Acute (16) Shortness of breath Status: Acute (17) Tracheitis Status: Acute (18) Weight gain Status: Acute Review of Systems Constitutional: No fever, No chills Respiratory: No dyspnea at rest, No hemoptysis Cardiac: No chest pain, No orthopnea, No edema Abdomen: No pain Objective Vital Signs Date Time Temp Pulse Resp B/P (MAP) Pulse Ox O2 Delivery O2 Flow Rate FiO2 07/15/17 15:43 36.8 66 28 115/59 (77) 98 Trach Collar 07/15/17 15:38 68 18 98 Room Air 07/15/17 12:19 Humidified Air 8.0 28 Trach Collar 07/15/17 12:16 36.6 63 20 120/64 (82) 98 Trach Collar 8.0 30 07/15/17 11:21 72 18 95 Room Air 07/15/17 08:00 Trach Collar 8.0 30 07/15/17 07:56 36.5 63 18 112/68 (83) 99 Trach Collar 8.0 30 07/15/17 07:19 67 20 99 Room Air 07/15/17 04:00 99 Trach Collar 8.0 30 07/15/17 03:57 36.5 63 18 120/57 (78) 98 Room Air 07/15/17 00:00 99 Trach Collar 8.0 30 07/14/17 23:56 36.8 68 20 120/60 (80) 98 Trach Collar 07/14/17 20:00 99 Trach Collar 8.0 30 07/14/17 19:50 36.5 82 18 138/66 (90) 99 Trach Collar 07/14/17 19:33 80 20 98 Room Air Physical Exam General Appearance: no apparent distress, + obese ENT: pharynx normal Neck: no JVD, + pertinent finding (trach in place) Respiratory/Chest: no respiratory distress, no accessory muscle use, + wheezing (very mild b/l ) Cardiovascular: no gallop, no murmur, + irregularly irregular Abdomen: normal bowel sounds, non tender, soft, no organomegaly Extremities: + pedal edema (mild 1+ lymphedema on right, trace edema on left) Neurologic/Psychiatric: alert, oriented x 3 Skin: + pertinent finding (stasis changes right chambers w/o cellulitis; severe dry skin both feet; pulses 2+ b/l ) Laboratory Results Last 24 Hours Test 07/14/17 16:21 07/14/17 20:33 07/15/17 05:37 07/15/17 06:57 Bedside Glucose 251 mg/dl 191 mg/dl 140 mg/dl White Blood Count 14.76 K/uL Red Blood Count 4.58 M/uL Hemoglobin 13.5 g/dL Hematocrit 39.8 % Mean Corpuscular Volume 86.9 fL Mean Corpuscular Hemoglobin 29.5 pg Mean Corpuscular Hemoglobin Concent 33.9 g/dl RDW Standard Deviation 46.6 fL RDW Coefficient of Variation 14.8 % Platelet Count 175 K/uL Mean Platelet Volume 11.3 fL Sodium Level 133 mmol/L Potassium Level 3.7 mmol/L Chloride Level 95 mmol/L Carbon Dioxide Level 31 mmol/L Anion Gap 6.0 mmol/L Blood Urea Nitrogen 20 mg/dl Creatinine 0.83 mg/dl Est Creatinine Clear Calc Drug Dose 170.8 ml/min Estimated GFR () 109.3 Estimated GFR (Non- 94.3 BUN/Creatinine Ratio 24.7 Random Glucose 121 mg/dl Calcium Level 8.7 mg/dl Test 07/15/17 11:29 07/15/17 16:03 Bedside Glucose 214 mg/dl 177 mg/dl Assessment and Plan 62yo male - 1. acute hypoxic resp failure 2nd to COPD w/ exacerbation - improved; cut steroids to 40mg IV q12h cont abx - covering for possible pneumonia - has had multi-drug resistant strep in past and MRSA thus, vanco + levaquin for now; ok to change levaquin to PO formulation sputum cx negative blood cx's negative 2. uncontrolled T2DM - improving with changes in lantus/novolog 3. MDD - continue with prozac; watch for sodium worsening 4. chronic hyponatremia - stable; BMP in am 5. chronic diastolic CHF - compensated; cont BB, diuretics, etc 6. a. fib - rate controlled with meds; continue systemic anticoagulation 7. ALLIE s/p trach - stable 8. morbid obesity - BMI 60 9. CAD - no ischemic symptoms at this time; cont BB, asa, statin, etc 10. RLE cellulitis - resolved; vanco for #1 also is being used for this; at discharge consider doxy, etc d/c tele move to med/surg likely 1-2 more days in hospital then can d/c home Continued [facility] stay due to: multiple IV medications needed Discharge planning: home
[2017-07-15] MEDS ORDERED: LEVOFLOXACIN 750 MG TAB PO ONE (16:45)
[2017-07-15] MEDS: LORAZEPAM 1 MG TAB PO PRN (21:51)
[2017-07-15] MEDS: LATANOPROST 0.005% OP SOLN 2.5 ML BTL OP SCH (21:58)
[2017-07-15] MEDS: METHYLPREDNISOLONE IV 40 MG in SYRINGE 0 ML IV SCH (22:04)
[2017-07-16] VITALS: O2SAT 98
[2017-07-16] MEDS: VANCOMYCIN INJ 2,500 MG in SODIUM CHLORIDE 0.9% 500ML 500 ML IV SCH ×2 (00:34→10:22)
[2017-07-16] MEDS: ALBUT/IPRATROP 3MG/0.5MG NEB 3 ML VIAL INH SCH ×3 (07:08→15:22)
[2017-07-16 07:16] VITALS: BP 123/68; PULSE 58; TEMP 36.9; O2SAT 95
[2017-07-16] MEDS: ACETYLCYSTEINE 20% INHAL SOLN ***DISPENSED BY RESP. INH SCH ×2 (07:21→15:00)
[2017-07-16 07:22] VITALS: PULSE 101; O2SAT 95
[2017-07-16] MEDS: INSULIN ASPART 100 UNITS/ML 3 ML PEN SC SCH ×2 (08:00→12:38)
[2017-07-16] MEDS: TRAMADOL HCL 50 MG TAB PO PRN (08:01)
[2017-07-16] MEDS: LORAZEPAM 1 MG TAB PO PRN (08:01)
[2017-07-16] MEDS: CEROVITE ADV FORMULA TAB PO SCH (08:01)
[2017-07-16] MEDS: GUAIFENESIN 600 MG TABCR PO SCH (08:02)
[2017-07-16] MEDS: ISOSORBIDE MONONITRATE 30 MG TABCR PO SCH (08:02)
[2017-07-16] MEDS: ATORVASTATIN 40 MG TAB PO SCH (08:02)
[2017-07-16] MEDS: METOPROLOL TARTRATE 25 MG TAB PO SCH (08:02)
[2017-07-16] MEDS: ASPIRIN 81 MG ECTAB PO SCH (08:02)
[2017-07-16] MEDS: FLUOXETINE HCL 20 MG CAP PO SCH (08:03)
[2017-07-16] MEDS: MAGNESIUM OXIDE 400 MG TAB PO SCH ×2 (08:03→12:39)
[2017-07-16] MEDS: LISINOPRIL 10 MG TAB PO SCH (08:03)
[2017-07-16] MEDS: METOLAZONE 5 MG TAB PO SCH (08:04)
[2017-07-16] MEDS: BUMETANIDE 1 MG TAB PO SCH (08:04)
[2017-07-16] MEDS: DILTIAZEM HCL 120 MG ER CAP PO SCH (08:04)
[2017-07-16] MEDS: SODIUM CHLORIDE 1 GM TAB PO SCH (08:05)
[2017-07-16] MEDS: SPIRONOLACTONE 25 MG TAB PO SCH (08:05)
[2017-07-16] MEDS: OMEGA-3 (PURIFIED FISH OIL) 1 GM CAP PO SCH (08:05)
[2017-07-16] MEDS: RIVAROXABAN 20 MG TAB PO SCH (08:06)
[2017-07-16] MEDS: POTASSIUM CHLORIDE 20 MEQ TABCR PO SCH (08:06)
[2017-07-16] MEDS: DORZOLAMIDE HCL 2% OPH SOLN 10 ML BTL OP SCH (08:07)
[2017-07-16] MEDS: INSULIN ASPART 100 UNITS/ML VIAL SC SCH ×2 (08:14→12:36)
[2017-07-16] MEDS: INSULIN GLARGINE SC SCH (08:15)
[2017-07-16] MEDS: BACITRACIN OINT 15 GM TUBE TOP SCH (08:21)
[2017-07-16] MEDS ORDERED: VANCOMYCIN TROUGH ONE (09:30)
[2017-07-16] MEDS ORDERED: LVQ750 PO (10:22)
[2017-07-16] MEDS ORDERED: INSDGI SC (10:22)
[2017-07-16] MEDS ORDERED: DOXY1TAB6 PO (10:22)
[2017-07-16] MEDS ORDERED: BMX1 PO (10:22)
[2017-07-16] MEDS ORDERED: PRED10TA PO (10:22)
[2017-07-16] MEDS ORDERED: ACET20SO4 INH (10:22)
[2017-07-16 10:23] LABS: BUN/CREATININE RATIO 25.9 (10-20); CALCIUM 8.5 mg/dl (8.5-10.1); CREATININE 1.06 mg/dl (0.60-1.40); POTASSIUM 3.6 mmol/L (3.5-5.1)
[2017-07-16] MEDS: METHYLPREDNISOLONE IV 40 MG in SYRINGE 0 ML IV SCH (10:23)
--- NOTE | 2017-07-16 10:28 | Discharge Instructions ---
Discharge Instructions Date of Service Jul 16, 2017. Admission Reason for Admission: Copd Exacerbation Discharge Discharge Diagnosis / Problem: COPD exacerbation Discharge Goals Goal(s): Improve disease control Activity Recommendations Activity Limitations: resume your previous activity Exercise/Sports Limitations: as tolerated . Instructions / Follow-Up Instructions / Follow-Up Please take a prednisone taper as follows: Steroid taper 60 mg daily x 3 days 40 mg daily x 3 days 20 mg daily x 3 days 10 mg daily x 3 days You should check your blood sugars before meals and before bed. Steroids can affect your blood sugars. Please let your primary care provider know if your sugars are consistently dropping or consistently high as your insulin may need to be adjusted as you come off of the steroids. Please have your lab work drawn before your next primary care appointment. I am sending you home with Mucamyst nebulizer. You can use this in your nebulizer three times per day for 2-3 days if you are feeling chest congestion. Current Hospital Diet Patient's current hospital diet: Diabetes Type 2 Diet, AHA Diet (Heart Healthy) Discharge Diet Recommended Diet: AHA Diet (Heart Healthy), Diabetes Type 2 Diet Procedures Procedures Performed: chest x ray Pending Studies Studies pending at discharge: no Medical Emergencies . Who to Call and When: Medical Emergencies: If at any time you feel your situation is an emergency, please call 911 immediately. . Non-Emergent Contact Non-Emergency issues call your: Primary Care Provider Call Non-Emergent contact if: you have any medication questions . Past History Medical & Surgical History: (1) SOB (shortness of breath) (2) PNA (pneumonia) (3) COPD exacerbation (4) Diabetes (5) Cellulitis and abscess of leg . "Provider Documentation" section prepared by Wendi Mckeon. . VTE Core Measure Inpt VTE Proph given/why not?: Other Anticoagulation, SCD's
[2017-07-16] MEDS ORDERED: FLUO20CA20 PO (10:54)
[2017-07-16] MEDS ORDERED: LEVOFLOXACIN 750 MG TAB PO SCH (11:00)
[2017-07-16 11:27] VITALS: PULSE 88; O2SAT 98
[2017-07-16 13:36] VITALS: BP 123/68; PULSE 88; TEMP 36.9; O2SAT 98
--- NOTE | 2017-07-16 15:24 | Discharge Summary ---
Discharge Summary Date of Service Jul 16, 2017. Discharge Summary Admission Date: Jul 12, 2017 at 15:29 Discharge Date: Jul 16, 2017 Discharge Disposition: Home Principal Diagnosis: COPD, PNA Problems/Secondary Diagnoses: Pmhx A.fib with Xeralto, chf, DMII, COPD, trach put in 2014 for sleep apnea, home O2 at night, HLD, morbid obesity, OH with stents Immunizations: Have You Had Influenza Vaccine: Yes History of Pneumococcal: Yes Procedures: CHEST ONE VIEW PORTABLE CLINICAL HISTORY: Shortness of breath. COMPARISON STUDY: Chest radiograph March 18, [address] May 04, 2016. FINDINGS: This exam is compromised due to difficulty positioning. Linear left lung opacities with calcification are chronic. Cardiomediastinal silhouette is stable. There is no evidence for pulmonary edema. Moderate cardiomegaly is again noted. No pneumothorax is identified.. IMPRESSION: 1. Study compromised due to difficulty positioning. 2. No change in appearance of the chest with stable cardiomegaly and linear left lung opacities which favor scarring. Medication Reconciliation New Medications: Acetylcysteine (Acetylcysteine) 20 % Vanessa 3 ML INH TID PRN for Cough for 3 Days, #6 DOSE Doxycycline Hyclate (Doxycycline Hyclate) 100 Mg Tab 1 TAB PO BID for 2 Days, #4 TAB Fluoxetine Hcl (Pmdd) (Fluoxetine) 20 Mg Cap 1 CAP PO DAILY for 30 Days, #30 CAP 5 Refills Prednisone (Prednisone) 10 Mg Tab 10 MG PO DAILY for 12 Days, #39 TAB Steroid taper 60 mg daily x 3 days 40 mg daily x 3 days 20 mg daily x 3 days 10 mg daily x 3 days Bumetanide (Bumetanide) 1 Mg Tab 2 MG PO QAM for 30 Days, #30 DOSE Insulin Glargine (Lantus) 100 Unit/Ml Inj 115 UNITS SC BID for 30 Days, #1 VIAL Levofloxacin (Levofloxacin) 750 Mg Tab 750 MG PO DAILY@11 for 2 Days, #2 TAB Continued Medications: Albuterol Hfa (Ventolin Hfa) 200 Puffs/24633 Mcg Aers 1 PUFFS INH QID PRN for SOB/Wheezing, INHALER Aspirin (Aspirin 81) 81 Mg Tab 81 MG PO DAILY Atorvastatin (Lipitor) 80 Mg Tab 80 MG PO DAILY, TAB Bacitracin (Topical) (Bacitracin) 500 Unit/Gm Oin 1 APPLN TOP DAILY for AFFECTED AREA, GM Beclomethasone Dipropionate (N (Qnasl) 80 Mcg/Act Aer 1 SPRY SIMBA DAILY, GM Desloratadine (Clarinex) 5 Mg Tab 5 MG PO DAILY, TAB Diltiazem Hcl (Diltiazem Hcl Er) 120 Mg Cap 1 CAP PO DAILY Dorzolamide Hcl (Trusopt Oph) 2 % Vanessa 1 DROPS OP BID, ML Fish Oil ([place]-3) 1 Ea Cap 1 CAP PO DAILY, CAP Fluticasone Furoate (Inhalatio (Arnuity Ellipta) 200 Mcg/Act Inh 1 PUFF INH DAILY Glucagon (Glucagon Emergency Kit) 1 Mg Kit 1 DOSE INJ UD Guaifenesin (Mucinex Maximum Strength) 1,200 Mg Tab 1200 MG PO BID, TAB Insulin Aspart (Novolog Flexpen) 100 Units/Ml Inj 95 UNITS SQ BREAKFAST Insulin Aspart (Novolog Flexpen) 100 Units/Ml Inj 65 UNITS SC LUNCH with supper Insulin Aspart (Novolog Flexpen) 100 Units/Ml Inj 90 UNITS SC DINNER Ipratropium-Albuterol (Duoneb) 3 Ml Nebu 1 TREATMENT INH Q4H, INHA Isosorbide Mononitrate (Isosorbide Mononitrate ER) 30 Mg Tabcr 30 MG PO DAILY Latanoprost (Xalatan 0.005% Oph Vanessa) 0.005 % Vanessa 1 DROPS OP HS, ML Lisinopril (Zestril) 10 Mg Tab 10 MG PO DAILY, TAB Lorazepam (Lorazepam) 1 Mg Tab 1 MG PO QID PRN for Anxiety Magnesium Oxide (Mag-Ox) 400 Mg Tab 400 MG PO TID, TAB Metolazone (Zaroxolyn) 5 Mg Tab 5 MG PO DAILY, TAB Metoprolol Tartrate (Lopressor) (Lopressor) 25 Mg Tab 25 MG PO BID, TAB Multivitamins/Minerals (Mvi With Minerals) Tab 1 TAB PO DAILY, TAB Nitroglycerin (Nitrostat) 0.4 Mg Tab 1 TAB SL UD, TAB Potassium Ext Rel (Klor-Con) 20 Meq Tabcr 3 TAB PO BID, TAB Rivaroxaban (Xarelto) 20 Mg Tab 20 MG PO DAILY Sodium Chloride (Sodium Chloride) 1 Gm Tab 1 GM PO DAILY Spironolactone (Aldactone) 25 Mg Tab 25 MG PO BID, TAB Tramadol (Ultram) 50 Mg Tab 50 MG PO Q8H PRN for Pain, TAB Discontinued Medications: Bumetanide (Bumex) 2 Mg Tab 1 TAB PO DAILY, TAB Insulin Glargine (Lantus Solostar) 100 Unit/Ml Inj 95 UNITS SC BID, PEN Discharge Exam ROS Constitutional: no chills, aches, sweats or fever Respiratory: no sob,mild cough, very little sputum, no wheezing Cardiac: no chest pain, palpitations, edema, orthopnea or lightheadedness GI: no abdominal pain, nausea, vomiting, diarrhea or constipation : no dysuria or hesitancy Extremities: no joint pain or weakness Skin: no rash PE General: no distress Eyes: normal inspection, PERLL Respiratory: chest non tender, still some diffuse expiratory wheezing but much improved from admission, no respiratory distress, no accessory muscle use Cardiac: regular rate and rhythm, no rub or gallop, no murmur, no edema, no jvd GI/: active bowel sounds, no abd pain or tenderness, soft, non distended Extremities: normal range of motion, normal strength, non tender Neuro/Psych: alert and oriented x 3, normal mood and affect Skin: normal color, dry Hospital Course Mr. Tim is a 62 year old man here for increasing sob. 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 He also felt some chest pressure but no chest pain or palpitations. He had fever and chills intermittently. Pmhx A.fib with Xeralto, chf, DMII, COPD, trach put in 2014 for sleep apnea, home O2 at night, HLD, morbid obesity, OH with stents COPD exacerbation/clinical PNA - patient's chest xray unreliable given body habitus so started on vanco and levaquin given clinical presentation indicative of pneumonia - Vanco and levaquin in patient - patient had reported taking levaquin outpatient but last renewal was 07/11 and he did not know when he started taking it so would continue for seven days ending 07/18 - added doxycycline for outpatient to help cover MRSA which patient has a history of. Levaquin should cover his history of MDR strep - continue mucinex, duonebs, acetylcysteine nebs, solumedrol in patient - changed to prednisone taper for outpatient - BC no growth, sputum light normal mo - continued home steroid inhalers Hyponatremia - chronic - baseline 128-130 - patient was 126 on admission, 128 on discharge - continue sodium supplement - discussed reasons for fluid restriction but patient refuses so order discontinued - recheck prp before seeing pcp next week Depression - consulted psych who recommend Prozac - watch serum sodium closely with SSRI administration - prp before pcp appt next week A.fib - rate controlled - continued diltiazem, Xeralto CHF/htn/cad - continued lisinopril, diuretics, statin, ASA, potassium DM - Patient is extremely insulin resistant receiving 440 units of insulin per day at home between his lantus and novolog. Bsgs continued to be elevated in the first two days of his admission in the 200s - controlled with ss on top of home doses and lantus - blood sugars began to come back down as steroids decreased. For home returned to previous home doses of rapid acting but continued increased lantus 115 units bid RLE chronic cellulitis - did appear to improve with abx - doxy and levaquin continued for home. Attending Discharge Note & Attestation: Pt seen/examined, chart reviewed, care plan d/w JOHNNY Mckeon. I agree w/ the jerez components of her discharge summary. 62yo male with morbid obesity, trach due to ALLIE, a. fib, chronic diastolic CHF, COPD, T2DM - presented with worsening respiratory symptoms (cough,wheeze, secretions via trach) despite outpatient use of levaquin. Admitted for acute hypoxic respiratory failure. Chest x-ray did not show pneumonia but he was treated for such (cxr likely limited due to body habitus). He has a history of MDR strep pneumoniae and MRSA; thus, was placed on levaquin & vanco, respectively. IV steroids were employed for his COPD exacerbation as well. With the above measures all pulmonary symptoms improved, O2 was weaned off, and his trach secretions markedly improved as well. Mucomyst nebs were employed and he reported significant relief with such. Sputum culture was negative while hospitalized. At discharge we recommended a few more days of levaquin and doxycycline (latter for MRSA coverage). He will finish a long steroid taper. Mucomyst nebs were ordered from his [facility] pharmacy for him. His stay was only complicated by uncontrolled T2DM; lantus was adjusted accordingly. Chronic diastolic CHF, a. fib, and hyponatremia remained stable. Discharge exam - gen - morbidly obese, NAD neck - trach in place; no obvious JVD mouth - no thrush heart - irregular, s1, s2 lungs - mild end-exp wheezing b/l, good airation abd - soft, NT, obese, BS+ ext - mild lymphedema right leg, trace edema left leg skin - chronic venous stasis changes w/o cellulitis, right leg; severe xerosis both feet Homer Fink MD Total Time Spent: Greater than 30 minutes This includes examination of the patient, discharge planning, medication reconciliation, and communication with other providers. Discharge Instructions Please refer to the electronic Patient Visit Report (Discharge Instructions) for additional information. Follow-Up Tony Magana PA-C in the [place] [facility] on FridayJuly 22 at 1:[address] Hanley on FridayJuly 23 at 11:30 pm. Additional Copies To Tony Magana PA-C; Christofer Hanley DO
--- NOTE | 2017-07-17 07:47 | EDITING REQUIRED CODING QUERY ---
CODING QUERY To promote full compliance with coding requirements relating to patient care, provider participation is requested in all cases of medical biller coder uncertainty. Please assist us with the question(s) below: Coding Question(s): Please clarify below, in your clinical opinion, regarding the possible pneumonia treated during this admission. ( ) Possible MRSA Pneumonia ( ) Possible MDR Streptococcal Pneumonia (x ) Possible MRSA and/or MDR Streptococcal Pneumonia ( ) Possible Unspecified Pneumonia ( ) Possible Other Pneumonia - Specify Physician's Response(s): Thank you Geeta Whitten Principal Diagnosis: "_that condition established after study, to be chiefly responsible for occasioning the admission of the patient to the hospital for care." Co-Existing Principal Diagnosis: "_when two or more diagnoses equally meet the criteria for principal diagnosis as determined by the circumstances of admission, diagnostic work up, and/or therapy provided, and the Alphabetic Index, Tabular List, or another coding guideline does not provide sequencing direction, any one of the diagnoses may be sequenced first." "When the physician has documented what appears to be a current diagnosis in the body of the record, but has not included the diagnosis in the final diagnostic statement, the physician should be asked whether the diagnosis should be added." (Source Coding Clinic 2 QTR90. p3-4)
== END 2017-07-16 15:00 | disposition home or self-care (01) | DRG 177 ==
LOC: C.EDB 12:33 → C.2E 15:29 → ENRESERV 15:59 → C.MS2W 07-15 17:30
PROVIDERS: ADMIT Hospitalist; ATTEND Internal Medicine
DX: J15.212 Pneumonia due to Methicillin resistant Staphylococcus aureus (principal); J96.01 Acute respiratory failure with hypoxia; J44.0 Chronic obstructive pulmonary disease with (acute) lower respiratory infection; J44.1 Chronic obstructive pulmonary disease with (acute) exacerbation; L03.115 Cellulitis of right lower limb; E87.1 Hypo-osmolality and hyponatremia; F32.2 Major depressive disorder, single episode, severe without psychotic features; R45.851 Suicidal ideations; Z68.44 Body mass index [BMI] 60.0-69.9, adult; I50.32 Chronic diastolic (congestive) heart failure; J15.4 Pneumonia due to other streptococci; E78.5 Hyperlipidemia, unspecified; E11.65 Type 2 diabetes mellitus with hyperglycemia; I48.91 Unspecified atrial fibrillation; I11.0 Hypertensive heart disease with heart failure; I25.10 Atherosclerotic heart disease of native coronary artery without angina pectoris; G47.33 Obstructive sleep apnea (adult) (pediatric); I25.2 Old myocardial infarction; E66.01 Morbid (severe) obesity due to excess calories; Z79.899 Other long term (current) drug therapy; Z79.4 Long term (current) use of insulin; Z79.01 Long term (current) use of anticoagulants; Z79.82 Long term (current) use of aspirin; Z93.0 Tracheostomy status; Z16.24 Resistance to multiple antibiotics; Z91.14 Patient's other noncompliance with medication regimen; Z87.01 Personal history of pneumonia (recurrent); Z86.14 Personal history of Methicillin resistant Staphylococcus aureus infection; Z86.19 Personal history of other infectious and parasitic diseases; Z87.891 Personal history of nicotine dependence; Z83.3 Family history of diabetes mellitus; Z82.49 Family history of ischemic heart disease and other diseases of the circulatory system; Z81.8 Family history of other mental and behavioral disorders

== ENCOUNTER 2017-10-15 14:58 | Inpatient (IN) | payer OTHER ==
[~2017-10-15] VITALS: Ht 182.9 cm; Wt 212.7 kg
[~2017-10-15 14:58] MED LIST changes: +ACET20SO4 INH; -ATOR80TA PO; +DILT120C9 PO; -DLCSR120 PO; +FLUO20CA20 PO; +FLUT1INH5 INH; +INSDGI SC; -INSDGIPEN SC; -LPR25 PO; -MCRK20 PO; +METO25TA56 PO; +METO5TAB5 PO; -MGNO400 PO; -PLMINSR5 INH; +POTA20TA16 PO; -SDMC1 PO; +SODI1TAB PO; -SYMIN160 INH
[2017-10-15] MEDS ORDERED: METHYLPREDNISOLONE 125 MG VIAL IV STA (15:25)
[2017-10-15] MEDS ORDERED: ALBUT/IPRATROP 3MG/0.5MG NEB 3 ML VIAL INH ONE (15:30)
--- NOTE | 2017-10-15 15:47 | DIAGNOSTIC IMAGING REPORT ---
CHEST ONE VIEW PORTABLE CLINICAL HISTORY: Chest pain. COMPARISON STUDY: Chest radiograph July 12, 2017. FINDINGS: This exam is significantly compromised due to portable technique and body habitus with suboptimal penetration. Tracheostomy tube is noted as well as median sternotomy wires. Cardiomegaly is unchanged. Left hemithorax pleural calcification is again noted. Scarring within the left lung is again noted. There is pulmonary vascular congestion without overt edema. There is no lobar consolidation. Mediastinal widening is unchanged. IMPRESSION: 1. Technically compromised exam given portable technique and body habitus. 2. Pulmonary vascular congestion without evidence for pulmonary edema. Stable cardiomegaly. Electronically signed by: Alexis Luna M.D. 10/15/2017 3:46 PM Dictated Date/Time: 10/15/2017 3:43 PM
[2017-10-15 15:50] VITALS: PULSE 93; O2SAT 95
[2017-10-15 17:01] LABS: BASO % 0.2 %; BASO ABS # 0.02 K/uL (0-0.2); EOS % 0.5 %; EOS ABS # 0.06 K/uL (0-0.5); HEMATOCRIT 38.4 % (42-52); HEMOGLOBIN 12.5 g/dL (14.0-18.0); IG# 0.06 K/uL (0.00-0.02); LYMPH % 14.2 %; LYMPH ABS # 1.59 K/uL (1.2-3.4); MEAN CELL VOLUME 88.3 fL (80-100); MEAN CORPUSCULAR HEMOGLOBIN 28.7 pg (25-34); MEAN CORPUSCULAR HGB CONC 32.6 g/dl (32-36); MEAN PLATELET VOLUME 11.6 fL (7.4-10.4); MONO % 8.8 %; MONO ABS # 0.98 K/uL (0.11-0.59); NEUT % 75.8 %; NEUT ABS # 8.45 K/uL (1.4-6.5); PLATELET COUNT 146 K/uL (130-400); RED CELL DISTRIBUTION WIDTH CV 15.2 % (11.5-14.5); WHITE BLOOD COUNT 11.16 K/uL (4.8-10.8)
[2017-10-15 17:10] LABS: INR 1.1 (0.9-1.1)
[2017-10-15 17:19] LABS: CREATININE 0.84 mg/dl (0.60-1.40); POTASSIUM 4.3 mmol/L (3.5-5.1)
[2017-10-15] MEDS ORDERED: INSDGIPEN SC ×2 (17:24)
[2017-10-15 17:44] VITALS: O2SAT 100; BMI 62.8
[2017-10-15] MEDS ORDERED: PHARMACY GLYCEMIC MGMT CONSULT STA (19:17)
[2017-10-15] MEDS ORDERED: NITROGLYCERIN 0.4 MG SL PER TAB CHARGE SL PRN (19:30)
[2017-10-15] MEDS ORDERED: ACETAMINOPHEN 325 MG TAB PO PRN (19:30)
[2017-10-15] MEDS ORDERED: ZOLPIDEM TARTRATE 5 MG TAB PO PRN ×2 (19:30)
[2017-10-15] MEDS ORDERED: POLYETHYLENE (MIRALAX) 17 GM PACK PO PRN (19:30)
[2017-10-15] MEDS ORDERED: GLUCOSE 40% GEL 15 GM TUBE PO PRN (19:30)
[2017-10-15] MEDS ORDERED: DEXTROSE 50% 50 ML SYR IV PRN (19:30)
[2017-10-15] MEDS ORDERED: NITROGLYCERIN 0.4 MG SL PER TAB CHARGE SL SCH (19:30)
[2017-10-15] MEDS ORDERED: GLUCAGON FOR INJ 1 MG VIAL SQ PRN (19:30)
[2017-10-15] MEDS ORDERED: ALUMINUM/MAGNESIUM/SIMETH (MAALOX MAX) 30 ML UDC PO PRN (19:30)
[2017-10-15] MEDS ORDERED: GLUCOSE 10 TABS/TUBE PO PRN (19:30)
[2017-10-15] MEDS ORDERED: MAGNESIUM HYDROXIDE SUSP 30 ML UDC PO PRN (19:30)
[2017-10-15] MEDS ORDERED: ONDANSETRON INJ 2 MG/ML 2 ML VIAL IV PRN (19:30)
--- NOTE | 2017-10-15 19:57 | History and Physical ---
History & Physical Date & Time of Service: Oct 15, 2017 at 19:41 Chief Complaint: Trouble Breathing, Blood Coming Out Of Trach Primary Care Physician: Christofer Hanley DO History of Present Illness Source: patient, hospital records 62-year-old man with past medical history of morbid obesity, hypertension, severe COPD, severe obstructive sleep apnea, did not tolerate BiPAP currently have a trach, diabetes mellitus type 2 with severe insulin resistance , congestive heart failure, CAD status post CABG and multiple stents, also has Pleural Plaques, RLL nodule thought to b e a hamartoma, chronic lower extremity swelling and recurrent cellulitis and atrial fibrillation currently on Xarelto. Patient has been having recurrent episodes of shortness of breath and copious secretions coming from the trach. He said that secretions are serosanguineous and occasionally yellowish or greenish. He was scheduled to have a bronchoscopy with Dr. Flores to evaluate his hemoptysis and shortness of breath. Patient developed severe progressive shortness of breath today accompanied with thick copious sputum production. Patient was not able to catch his breath and presented to the ED for further evaluation and management. He said that intermittently sometimes he feels chest pressure but is not from his heart as he or previously had anginal pain and know what it is, his chest pressure is mainly pleuritic from his difficulty breathing. His symptoms started this afternoon. Also have generalized weakness. He reports that he is currently not on any antibiotics or steroids. Family History Diabetes mellitus Heart disease Hypertension Social History Smoking Status: Former Smoker Drug Use: none Marital Status: Housing status: lives with family Occupational Status: unemployed Immunizations History of Influenza Vaccine: Yes History of Pneumococcal: Yes Allergies Coded Allergies: [place] (Verified Allergy, Severe, Difficulty breathing, 10/15/17) Sodium Hypochlorite (Verified Allergy, Unknown, HIVES AND RESPIRATORY DIFFICULTY FROM CLOROX, 10/15/17) Home Medications Scheduled Aspirin (Aspirin 81), 81 MG PO DAILY Atorvastatin (Lipitor), 80 MG PO DAILY Bacitracin (Topical) (Bacitracin), 1 APPLN TOP DAILY Beclomethasone Dipropionate (N (Qnasl), 1 SPRY SIMBA DAILY Bumetanide (Bumetanide), 2 MG PO QAM Desloratadine (Clarinex), 5 MG PO DAILY Diltiazem Hcl (Diltiazem Hcl Er), 1 CAP PO DAILY Dorzolamide Hcl (Trusopt Oph), 1 DROPS OP BID Fish Oil ([place]-3), 1 CAP PO DAILY Fluticasone Furoate (Inhalatio (Arnuity Ellipta), 1 PUFF INH DAILY Glucagon (Glucagon Emergency Kit), 1 DOSE INJ UD Guaifenesin (Mucinex Maximum Strength), 1,200 MG PO BID Insulin Aspart (Novolog Flexpen), 100 UNITS SQ BREAKFAST Insulin Aspart (Novolog Flexpen), 70 UNITS SC LUNCH Insulin Aspart (Novolog Flexpen), 95 UNITS SC DINNER Insulin Glargine (Lantus Solostar), 118 SC QAM Insulin Glargine (Lantus Solostar), 115 SC QPM Ipratropium-Albuterol (Duoneb), 1 TREATMENT INH Q4H Isosorbide Mononitrate (Isosorbide Mononitrate ER), 30 MG PO DAILY Latanoprost (Xalatan 0.005% Oph Vanessa), 1 DROPS OP HS Lisinopril (Zestril), 10 MG PO DAILY Magnesium Oxide (Mag-Ox), 400 MG PO TID Metolazone (Zaroxolyn), 5 MG PO DAILY Metoprolol Tartrate (Lopressor) (Lopressor), 25 MG PO BID Multivitamins/Minerals (Mvi With Minerals), 1 TAB PO DAILY Nitroglycerin (Nitrostat), 1 TAB SL UD Potassium Ext Rel (Klor-Con), 3 TAB PO BID Rivaroxaban (Xarelto), 20 MG PO DAILY Sodium Chloride (Sodium Chloride), 1 GM PO DAILY Spironolactone (Aldactone), 25 MG PO BID Scheduled PRN Albuterol Hfa (Ventolin Hfa), 1 PUFFS INH QID PRN for SOB/Wheezing Lorazepam (Lorazepam), 1 MG PO QID PRN for Anxiety Tramadol (Ultram), 50 MG PO Q8H PRN for Pain Review of Systems Review of system Constitutional: No fever / no chills / no sweats /positive for weakness and fatigue Eyes: no blurring of vision / no eye pain / no discharge / no redness ENT: no hearing loss / no epistaxis /no swallowing problems Respiratory: Positive for cough, hemoptysis and yellowish/greenish discharge coming from his trach, positive for wheezing and shortness of breath. Cardiovascular: no Chest pain / no lower extremity edema / no palpitation Abdomen: no pain / no nausea / no vomiting / no constipation Musculoskeletal: no joint pain / no muscle pain / no joint swelling Genitourinary: no dysuria / no incontinence / no urinary retention Neurologic: no focal weakness / no numbness/tingling / no ataxia Psychiatric: no depression symptoms / no anxiety / no insomnia Endocrine: no excessive thirst / no excessive urination Hematologic: no abnormal bleeding / no bruising / no LN swelling Skin: Positive for lower extremity swelling and erythema Physical Exam Vital Signs Date Time Temp Pulse Resp B/P (MAP) Pulse Ox O2 Delivery O2 Flow Rate FiO2 10/15/17 17:44 100 Trach Collar 12.0 10/15/17 17:34 103 28 121/87 100 Trach Collar 12.0 10/15/17 16:30 100 Trach Collar 15.0 10/15/17 15:50 93 26 95 Trach Collar 8.0 10/15/17 15:28 Room Air 5.0 10/15/17 15:02 36.7 104 22 191/80 96 Physical examination General patient appears to be morbidly obese and in moderate respiratory distress HEENT: Atraumatic , normocephalic /no jaundice /no pallor /anicteric /no dry mucous membrane /normal external ear inspection Neck: Supple /no swelling /central trach Heart: S1/S2 irregular irregularity with 2/6 systolic murmur Lungs: Significant decrease in air entry bilaterally, scattered rhonchi, positive for wheezing Abdomen: Soft/nontender/no guarding/no rebound/no organomegaly/no pulsatile mass Musculoskeletal: significant swelling in both lower extremity right more than left plus erythema Neuro exam: Awake alert oriented 3/cranial nerves II through XII appear to be intact/sensation intact/moves all extremities/no abnormal movements Psychiatric evaluation: No depressed mood/normal affect Skin: Erythema on right lower extremity Extremity: +3 pitting edema/no clubbing or cyanosis Endocrine/lymphatic: No obvious lymphadenopathy /no lymphedema Diagnostics Laboratory Results Results Past 24 Hours Test 10/15/17 16:27 Range/Units White Blood Count 11.16 4.8-10.8 K/uL Red Blood Count 4.35 4.7-6.1 M/uL Hemoglobin 12.5 14.0-18.0 g/dL Hematocrit 38.4 42-52 % Mean Corpuscular Volume 88.3 80-100 fL Mean Corpuscular Hemoglobin 28.7 25-34 pg Mean Corpuscular Hemoglobin Concent 32.6 32-36 g/dl Platelet Count 146 130-400 K/uL Mean Platelet Volume 11.6 7.4-10.4 fL Neutrophils (%) (Auto) 75.8 % Lymphocytes (%) (Auto) 14.2 % Monocytes (%) (Auto) 8.8 % Eosinophils (%) (Auto) 0.5 % Basophils (%) (Auto) 0.2 % Neutrophils # (Auto) 8.45 1.4-6.5 K/uL Lymphocytes # (Auto) 1.59 1.2-3.4 K/uL Monocytes # (Auto) 0.98 0.11-0.59 K/uL Eosinophils # (Auto) 0.06 0-0.5 K/uL Basophils # (Auto) 0.02 0-0.2 K/uL RDW Standard Deviation 49.0 36.4-46.3 fL RDW Coefficient of Variation 15.2 11.5-14.5 % Immature Granulocyte % (Auto) 0.5 % Immature Granulocyte # (Auto) 0.06 0.00-0.02 K/uL Prothrombin Time 11.5 9.0-12.0 SECONDS Prothromb Time International Ratio 1.1 0.9-1.1 Activated Partial Thromboplast Time 24.0 21.0-31.0 SECONDS Partial Thromboplastin Ratio 0.9 Sodium Level 130 136-145 mmol/L Potassium Level 4.3 3.5-5.1 mmol/L Chloride Level 93 98-107 mmol/L Carbon Dioxide Level 30 21-32 mmol/L Anion Gap 7.0 3-11 mmol/L Blood Urea Nitrogen 15 7-18 mg/dl Creatinine 0.84 0.60-1.40 mg/dl Est Creatinine Clear Calc Drug Dose 168.4 ml/min Estimated GFR () 108.8 Estimated GFR (Non- 93.8 BUN/Creatinine Ratio 17.5 10-20 Random Glucose 310 70-99 mg/dl Calcium Level 9.0 8.5-10.1 mg/dl Troponin I 0.024 0-0.045 ng/ml Beta-Hydroxybutyric Acid 1.54 0.2-2.81 mg/dL Microbiology Results 10/15/17 Blood Culture, Ordered Pending 10/15/17 Blood Culture, Ordered Pending 10/15/17 Blood Culture, Received Pending 10/15/17 Blood Culture, Received Pending Impression Assessment and Plan 62-year-old man with past medical history of morbid obesity, hypertension, severe COPD, severe obstructive sleep apnea, did not tolerate BiPAP currently have a trach, diabetes mellitus type 2 with severe insulin resistance , congestive heart failure, CAD status post CABG and multiple stents, also has Pleural Plaques, RLL nodule thought to b e a hamartoma, chronic lower extremity swelling and recurrent cellulitis and atrial fibrillation currently on Xarelto. Presented with acute hypoxic respiratory failure, hemoptysis and sputum production. Assessment Acute respiratory failure with hypoxemia secondary to below COPD exacerbation Possible acute bronchitis Severe obstructive sleep apnea status post tracheostomy Morbid obesity Obesity hypoventilation syndrome Pleural Plaques RLL nodule thought to b e a hamartoma Congestive heart failure unspecified Diabetes mellitus insulin requiring with severe insulin resistance CAD status post CABG and multiple stents Atrial fibrillation on Xarelto/aspirin Right lower extremity cellulitis Plan Admit patient to telemetry Oxygen supplement as per protocol via trach collar Blood culture/sputum culture Influenza virus screen and PCR Urine legionella antigen Steroids IV/bronchodilators We will hold off antibiotics until we get good cultures from his bronchial lavage, he does not look very toxic, discussed with Dr. Evans, no need to stop Xarelto or aspirin, he will go for bronchoscopy in a.m. Antibiotics can be started empirically tomorrow for bronchitis/right lower extremity cellulitis after the bronchoscopy Start patient on lactobacillus to prevent C. difficile Continue home medications IV fluid hydration as needed Monitor labs in a.m. Monitor oxygen saturation DVT prophylaxis/heparin subcutaneous Advanced Directives Existing Living Will: No Existing Power of Nuclear Physician: No Resuscitation Status VTE Prophylaxis Will order VTE Prophylaxis: Yes
[2017-10-15 20:45] VITALS: BP 150/78; PULSE 100; TEMP 36.8; O2SAT 96
[2017-10-15] MEDS: IPRATROPIUM BROMIDE NEB SOLN 0.02% 2.5 ML VIAL INH SCH (21:00)
[2017-10-15] MEDS: LEVALBUTEROL 1.25MG/0.5ML NEB INH SCH (21:00)
[2017-10-15] MEDS ORDERED: INSULIN ASPART 100 UNITS/ML 3 ML PEN SC SCH (21:00)
[2017-10-15] MEDS ORDERED: LEVALBUTEROL/IPRATROPIUM NEB INH SCH (21:00)
--- NOTE | 2017-10-15 21:44 | EMERGENCY ROOM VISIT NOTE ---
History Report prepared by Shine: Alyssa Carlos Under the Supervision of: Dr. Freddie Muñiz M.D. First contact with patient: 15:17 Chief Complaint: RESPIRATORY PROBLEMS Stated Complaint: TROUBLE BREATHING, BLOOD COMING OUT OF TRACH History of Present Illness The patient is a 62 year old male who presents to the Emergency Room with complaints of worsening shortness of breath for four months. He states that he got up this afternoon and could hardly catch his breath. He reports increased weakness from his baseline. He notes nausea and denies any vomiting. He notes chronic back pain. He states that he occasionally experiences chest pain with difficulty breathing, though he denies any chest pain today. He describes the chest pain as pressure. He reports intermittent coughing fits with blood, which have been ongoing for four months. He states that it depends on the day. He notes the cough will be clear and the next time he coughs it is full of blood and clots. He is scheduled to have bronchoscopy on October 21, 2017. He states that he was supposed to have laboratory work done today for his scheduled procedure. The patient has a tracheostomy in place since 2014 due to severe sleep apnea. He is claustrophobic and the CPAP machine did not suffice. He has a history of COPD. He is a former smoker and quit seven years ago. He has a history of atrial fibrillation. He is taking Xarelto, though he has not taken it today. He denies taking any steroids. Source of History: patient Onset: four months Position: other (Lungs) Quality: other (shortness of breath) Timing: worsening Associated Symptoms: + cough, + nausea, + back pain, + weakness, No chest pain, No vomiting Note: He notes knee pain. Review of Systems See HPI for pertinent positives & negatives. A total of 10 systems reviewed and were otherwise negative. Past Medical & Surgical Medical Problems: (1) Acute respiratory failure (2) Cellulitis (3) Cellulitis and abscess of leg (4) CHF exacerbation (5) COPD (chronic obstructive pulmonary disease) (6) COPD exacerbation (7) Diabetes (8) Diabetes mellitus type 2 in obese (9) Dyspnea (10) Fever chills (11) HCAP (healthcare-associated pneumonia) (12) Hemoptysis (13) History of CHF (congestive heart failure) (14) Hyperlipidemia (15) Hyponatremia (16) Morbid obesity (17) PNA (pneumonia) (18) Sepsis due to Streptococcus pneumoniae (19) SOB (shortness of breath) Surgical Problems: (1) Tracheostomy in place Family History Diabetes mellitus Heart disease Hypertension Social History Smoking Status: Former Smoker Drug Use: none Marital Status: Housing Status: lives with family Occupation Status: unemployed Current/Historical Medications Scheduled Aspirin (Aspirin 81), 81 MG PO DAILY Atorvastatin (Lipitor), 80 MG PO DAILY Bacitracin (Topical) (Bacitracin), 1 APPLN TOP DAILY Beclomethasone Dipropionate (N (Qnasl), 1 SPRY SIMBA DAILY Bumetanide (Bumetanide), 2 MG PO QAM Desloratadine (Clarinex), 5 MG PO DAILY Diltiazem Hcl (Diltiazem Hcl Er), 1 CAP PO DAILY Dorzolamide Hcl (Trusopt Oph), 1 DROPS OP BID Fish Oil (Clinton-3), 1 CAP PO DAILY Fluticasone Furoate (Inhalatio (Arnuity Ellipta), 1 PUFF INH DAILY Glucagon (Glucagon Emergency Kit), 1 DOSE INJ UD Guaifenesin (Mucinex Maximum Strength), 1,200 MG PO BID Insulin Aspart (Novolog Flexpen), 100 UNITS SQ BREAKFAST Insulin Aspart (Novolog Flexpen), 70 UNITS SC LUNCH Insulin Aspart (Novolog Flexpen), 95 UNITS SC DINNER Insulin Glargine (Lantus Solostar), 118 SC QAM Insulin Glargine (Lantus Solostar), 115 SC QPM Ipratropium-Albuterol (Duoneb), 1 TREATMENT INH Q4H Isosorbide Mononitrate (Isosorbide Mononitrate ER), 30 MG PO DAILY Latanoprost (Xalatan 0.005% Oph Vanessa), 1 DROPS OP HS Lisinopril (Zestril), 10 MG PO DAILY Magnesium Oxide (Mag-Ox), 400 MG PO TID Metolazone (Zaroxolyn), 5 MG PO DAILY Metoprolol Tartrate (Lopressor) (Lopressor), 25 MG PO BID Multivitamins/Minerals (Mvi With Minerals), 1 TAB PO DAILY Nitroglycerin (Nitrostat), 1 TAB SL UD Potassium Ext Rel (Klor-Con), 3 TAB PO BID Rivaroxaban (Xarelto), 20 MG PO DAILY Sodium Chloride (Sodium Chloride), 1 GM PO DAILY Spironolactone (Aldactone), 25 MG PO BID Scheduled PRN Albuterol Hfa (Ventolin Hfa), 1 PUFFS INH QID PRN for SOB/Wheezing Lorazepam (Lorazepam), 1 MG PO QID PRN for Anxiety Tramadol (Ultram), 50 MG PO Q8H PRN for Pain Allergies Coded Allergies: Hurst (Verified Allergy, Severe, Difficulty breathing, 10/15/17) Sodium Hypochlorite (Verified Allergy, Unknown, HIVES AND RESPIRATORY DIFFICULTY FROM CLOROX, 10/15/17) Physical Exam Vital Signs Date Time Temp Pulse Resp B/P (MAP) Pulse Ox O2 Delivery O2 Flow Rate FiO2 10/15/17 17:44 100 Trach Collar 12.0 10/15/17 17:34 103 28 121/87 100 Trach Collar 12.0 10/15/17 16:30 100 Trach Collar 15.0 10/15/17 15:50 93 26 95 Trach Collar 8.0 10/15/17 15:28 Room Air 5.0 10/15/17 15:02 36.7 104 22 191/80 96 Physical Exam Constitutional: Vital signs reviewed. Eyes: Pupils are equal round reactive to light. Conjunctiva are noninjected. ENT: Pharynx is clear without erythema or exudate. Mucous membranes are moist. Neck supple without meningeal signs. Tracheostomy in place, no drainage or bleeding. Respiratory: Bilateral wheezing. Breath sounds are equal bilaterally. Cardiovascular: Regular rate and irregular rhythm. No rubs or gallops. GI: Soft, nondistended and nontender. Bowel sounds are present. Musculoskeletal:Bilateral edema with venous stasis discoloration. Integumentary: No cyanosis. Neurological: The patient is awake and alert. No focal deficits. Psychiatric: Normal affect. Medical Decision & Procedures ER Provider Diagnostic Interpretation: Radiology results as stated below per my review and the radiologist's interpretation: CHEST ONE VIEW PORTABLE CLINICAL HISTORY: Chest pain. COMPARISON STUDY: Chest radiograph July 12, 2017. FINDINGS: This exam is significantly compromised due to portable technique and body habitus with suboptimal penetration. Tracheostomy tube is noted as well as median sternotomy wires. Cardiomegaly is unchanged. Left hemithorax pleural calcification is again noted. Scarring within the left lung is again noted. There is pulmonary vascular congestion without overt edema. There is no lobar consolidation. Mediastinal widening is unchanged. IMPRESSION: 1. Technically compromised exam given portable technique and body habitus. 2. Pulmonary vascular congestion without evidence for pulmonary edema. Stable cardiomegaly. Electronically signed by: Alexis Luna M.D. 10/15/2017 3:46 PM Dictated Date/Time: 10/15/2017 3:43 PM Laboratory Results 10/15/17 16:27 Red Blood Count 4.35, Mean Corpuscular Volume 88.3, Mean Corpuscular Hemoglobin 28.7, Mean Corpuscular Hemoglobin Concent 32.6, Mean Platelet Volume 11.6, Neutrophils (%) (Auto) 75.8, Lymphocytes (%) (Auto) 14.2, Monocytes (%) (Auto) 8.8, Eosinophils (%) (Auto) 0.5, Basophils (%) (Auto) 0.2, Neutrophils # (Auto) 8.45, Lymphocytes # (Auto) 1.59, Monocytes # (Auto) 0.98, Eosinophils # (Auto) 0.06, Basophils # (Auto) 0.02 10/15/17 16:27 Test 10/15/17 16:27 White Blood Count 11.16 K/uL (4.8-10.8) Red Blood Count 4.35 M/uL (4.7-6.1) Hemoglobin 12.5 g/dL (14.0-18.0) Hematocrit 38.4 % (42-52) Mean Corpuscular Volume 88.3 fL (80-100) Mean Corpuscular Hemoglobin 28.7 pg (25-34) Mean Corpuscular Hemoglobin Concent 32.6 g/dl (32-36) Platelet Count 146 K/uL (130-400) Mean Platelet Volume 11.6 fL (7.4-10.4) Neutrophils (%) (Auto) 75.8 % Lymphocytes (%) (Auto) 14.2 % Monocytes (%) (Auto) 8.8 % Eosinophils (%) (Auto) 0.5 % Basophils (%) (Auto) 0.2 % Neutrophils # (Auto) 8.45 K/uL (1.4-6.5) Lymphocytes # (Auto) 1.59 K/uL (1.2-3.4) Monocytes # (Auto) 0.98 K/uL (0.11-0.59) Eosinophils # (Auto) 0.06 K/uL (0-0.5) Basophils # (Auto) 0.02 K/uL (0-0.2) RDW Standard Deviation 49.0 fL (36.4-46.3) RDW Coefficient of Variation 15.2 % (11.5-14.5) Immature Granulocyte % (Auto) 0.5 % Immature Granulocyte # (Auto) 0.06 K/uL (0.00-0.02) Prothrombin Time 11.5 SECONDS (9.0-12.0) Prothromb Time International Ratio 1.1 (0.9-1.1) Activated Partial Thromboplast Time 24.0 SECONDS (21.0-31.0) Partial Thromboplastin Ratio 0.9 Anion Gap 7.0 mmol/L (3-11) Est Creatinine Clear Calc Drug Dose 168.4 ml/min Estimated GFR () 108.8 Estimated GFR (Non- 93.8 BUN/Creatinine Ratio 17.5 (10-20) Calcium Level 9.0 mg/dl (8.5-10.1) Troponin I 0.024 ng/ml (0-0.045) Beta-Hydroxybutyric Acid 1.54 mg/dL (0.2-2.81) Hepatitis C Antibody Screen NEG (NEG) Laboratory results as reviewed by me. Medications Administered Medications (Trade) Dose Ordered Sig/Saige Route Start Time Stop Time Status Last Admin Dose Admin Albuterol/ Ipratropium (Duoneb) 12 ml ONE ONCE INH 10/15/17 15:30 10/15/17 15:31 DC 10/15/17 15:50 12 ML Methylprednisolone Sodium Succinate (Solu-Medrol IV) 125 mg NOW STAT IV 10/15/17 15:25 10/15/17 15:27 DC 10/15/17 17:10 125 MG ECG Per My Interpretation Indication: SOB/dyspnea Rate (beats per minute): 110 Rhythm: atrial fibrillation, other (with RVR) Findings: other (Low voltage QRS. QRS is 76 ms.) ED Course 1519: The patient was evaluated in room C9. A complete history and physical exam was performed. 1525: Ordered Solu-Medrol 125 mg IV 1530: Ordered DuoNeb 12 ml INH 1628: I reassessed the patient at this time. The patient's wheezing is diminished. The IV team is working on obtaining blood work. 1656: I reassessed the patient at this time. He is feeling better. 1705: I [place]. Maria Eugenia Guan [facility] [place] We discussed the patient's case. The patient will be evaluated by the [facility] for further management. Medical Decision This is a 62-year-old male presents with difficulty breathing. Differential diagnosis includes COPD exacerbation, pneumonia, bronchitis, hypercapnia, pleural effusion, pneumothorax. I did perform a limited focused review of portions of the patient's old chart on the electronic medical record. The patient has had no recent pertinent visits to this hospital. I did evaluate the patient as noted above. IV access was established. The patient was placed on a continuous lunchroom monitor. I did treat the patient with an hour-long continuous nebulizer with albuterol and Atrovent. He was also given Solu-Medrol 125 mg IV. I did order and personally review the patient 's 12-lead EKG and chest x-ray as described above. I did order and review the patient's blood work as noted in the electronic medical record. His white blood cell count is slightly elevated. He has hyponatremia. I did reexamine the patient. He is not feeling much better. He does have diminished wheezing on examination. I did discuss the test results with the patient. I did discuss the case with the hospitalist and shoe parts caser. Medication Reconcilliation Current Medication List: was personally reviewed by me Blood Pressure Screening Patient's blood pressure: Elevated blood pressure Blood pressure disposition: Referred to PCP Consults Time Called: 163 Consulting Physician: Dr. Maria Eugenia Guan [facility] [place] Returned Call: [address] Maria Eugenia Guan [facility] [place]. We discussed the patient' s case. The patient will be evaluated by the [facility] for further management. Impression Primary Impression: COPD exacerbation Additional Impression: Hyponatremia Scribe Attestation The scribe's documentation has been prepared under my direct and personally reviewed by me in its entirety. I confirm that the note above accurately reflects all work, treatment, procedures, and medical decision making performed by me. Departure Information Dispostion Being Evaluated By Hospitalist Referrals Christofer Hanley DO (PCP) Patient Instructions My [facility] Problem Qualifiers
[2017-10-15] MEDS: LATANOPROST 0.005% OP SOLN 2.5 ML BTL OP SCH (21:57)
[2017-10-15] MEDS: DORZOLAMIDE HCL 2% OPH SOLN 10 ML BTL OP SCH (21:57)
[2017-10-15] MEDS: POTASSIUM CHLORIDE 20 MEQ TABCR PO SCH (21:59)
[2017-10-15 22:00] VITALS: BP 154/80; PULSE 104
[2017-10-15] MEDS: MAGNESIUM OXIDE 400 MG TAB PO SCH (22:02)
[2017-10-15] MEDS: METOPROLOL TARTRATE 25 MG TAB PO SCH (22:02)
[2017-10-15] MEDS: GUAIFENESIN 600 MG TABCR PO SCH (22:03)
[2017-10-15] MEDS: INSULIN GLARGINE SC SCH (22:31)
[2017-10-15] MEDS: LORAZEPAM 1 MG TAB PO PRN (22:33)
[2017-10-15 22:48] VITALS: BP 135/81; PULSE 84; TEMP 37.3; O2SAT 98
[2017-10-15] MEDS ORDERED: INSULIN ASPART 100 UNITS/ML VIAL SC SCH (23:00)
[2017-10-15] MEDS: INSULIN ASPART 100 UNITS/ML VIAL SC SCH (23:59)
[2017-10-16] VITALS (12 sets, daily range): BP systolic 132–185; BP diastolic 69–78; PULSE 80–94; TEMP 36.5–36.7; O2SAT 94–99; Ht 182.9 cm; Wt 212.7 kg
[2017-10-16] MEDS: IPRATROPIUM BROMIDE NEB SOLN 0.02% 2.5 ML VIAL INH SCH ×4 (00:06→20:18)
[2017-10-16] MEDS: LEVALBUTEROL 1.25MG/0.5ML NEB INH SCH ×4 (00:06→20:19)
[2017-10-16] MEDS ORDERED: LEVALBUTEROL/IPRATROPIUM NEB INH PRN (00:15)
[2017-10-16] MEDS ORDERED: LEVALBUTEROL 1.25MG/0.5ML NEB INH PRN (00:45)
[2017-10-16] MEDS ORDERED: IPRATROPIUM BROMIDE NEB SOLN 0.02% 2.5 ML VIAL INH PRN (00:45)
[2017-10-16] MEDS: INSULIN ASPART 100 UNITS/ML VIAL SC SCH ×7 (02:53→22:04)
[2017-10-16] MEDS ORDERED: INSULIN ASPART 100 UNITS/ML VIAL SC SCH (06:30)
[2017-10-16] MEDS: METHYLPREDNISOLONE IV 60 MG in SYRINGE 0 ML IV SCH ×5 (06:38→23:49)
--- NOTE | 2017-10-16 06:58 | Pulmonary Consultation ---
History General Date of Service: Oct 16, 2017. Stated Complaint: Acute Respiratory Failure HPI The patient is a 62 year old male who presents to [facility] with complaints of Acute Respiratory Failure. The patient's primary care provider is Christofer Hanley DO. 62-year-old male admitted for difficulty breathing and blood coming out of his trachea. PmHx significant for: Morbid obesity with severe ALLIE requiring tracheostomy, anxiety, CAD/angina pectoralis, difficult to control diabetes, coronary disease status post CABG/stents, atrial fibrillation, oxygen-dependent , recurrent tracheal infections in atrial fibrillation treated with Xarelto. Patient has been noting serosanguineous and yellowish to green copious amounts of sputum production coming from his tracheostomy. He was scheduled to have bronchoscopy by Dr. Flores as an outpatient for this issue. He developed severe shortness of breath and required admission. Patient also informs me he has been coughing up blood for approximately 1 month. There are times when the blood becomes extremely coagulated and will actually obstruct his tracheostomy or he has to remove it and clean it. On average he notes he only cleans a tracheostomy about once a month and changes it once a year. Microbiology history Sputum/tracheal suction 07/15/2016: Moraxella catarrhalis/MRSA Blood 05/03/2016: Group B beta strep Right lower extremity 04/03/2016: Coag-negative staph/corynebacterium bacterium Sputum/trachea 12/10/2015: Moraxella catarrhalis Sputum/trachea 09/27/2015: strep pneumonia 09/27/2015 (diffuse resistance pattern) Blood 09/27/2015: Strep pneumonia (diffuse resistance pattern) Bronchial washing 08/29/2015: Yeast not Kimber albicans and/cryptococcus neofor Pulmonary function studies 06/02/2014 Pre post %Sloan FEV1/FVC 67 FEV1 2.07/53 % 2.34/60 % 13 FVC 3.07/63 % 3.14/64 % 2 VC 3.07/63 % TLC 2.47/99 % RV/TLC >45 DLCO 69 % DL/VA 139 % Active Problems 1. Angina pectoris (I20.9) 2. Anxiety (F41.9) 3. Arthralgia (M25.50) 4. Atrial fibrillation (I48.91) 5. Pleural plaquing 6. CAD (coronary artery disease), q[place] coronary artery (I25.10) 7. Candidiasis (B37.9) 8. Cellulitis of right leg without foot (L03.115) 9. 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 Chronic pain (G89.29) 11. Dependence on supplemental oxygen (Z99.81) 12. Diabetes mellitus (E11.9) 13. Dizziness (R42) 14. Edema (R60.9) 15. Fatigue (R53.83) 16. Hypertension (I10) 17. Hypokalemia (E87.6) 18. Lung nodule, solitary (RLL) 19. Myalgia (M79.1) 20. Obesity (E66.9) 21. Obstructive sleep apnea syndrome/requiring tracheostomy 22. Seasonal allergies (J30.2) 23. Sinusitis (J32.9) 24. Tracheobronchitis 25. Ulcer of right lower extremity, limited to breakdown of skin Past Medical History 1. History of candidiasis (Z86.19) 2. History of pneumonia (Z87.01) Surgical History 1. History of CABG 2. History of Cataract Surgery 3. History of Cath Stent Placement 4. History of Pilonidal Cyst Resection Family History 1. Family history of cardiovascular disease (Z82.49) 2. Family history of diabetes mellitus (Z83.3) 3. Family history of cardiovascular disease (Z82.49) 4. Family history of diabetes mellitus (Z83.3) Social History Denied: History of Alcohol use Disabled Former smoker Denied: History of Uses safety equipment Current Meds 1. Magnesium 500 MG Oral Capsule; TAKE DIRECTED. (400mg three times daily); 2. LORazepam 1 MG Oral Tablet; TAKE 1 TABLET BY MOUTH EVERY 6 HOURS 3. Isosorbide Mononitrate 30 MG TB24; TAKE 1 TABLET DAILY; 4. Aspir-81 81 MG Oral Tablet Delayed Release; TAKE 1 TABLET DAILY; 5. Fish Oil 1000 MG Oral Capsule; TAKE 1 CAPSULE DAILY; 6. Hydrocodone-Homatropine 5-1.5 MG/5ML Oral Syrup; TAKE 5 ML EVERY 4 HOURS 7. Ipratropium-Albuterol 0.5-2.5 (3) MG/3ML Inhalation Solution QID 8. PredniSONE 10 MG Oral Tablet; Start by taking 4 pills daily for 2 days and then decrease 9. ProAir HFA 108 (90 Base) MCG/ACT Inhalation Aerosol Solution; INHALE 2 PUFFS FOUR 10. Gauze Pads 4"X4" Pad; USE DIRECTED with Trach 11. Arnuity Ellipta 200 MCG/ACT Inhalation Aerosol Powder Breath Activated; INHALE 1 PUFF 12. Sterile Water for Irrigation Irrigation Solution; USE DIRECTED; 13. Glucagon Emergency 1 MG Injection Kit; USE DIRECTED; 14. Lantus SoloStar 100 UNIT/ML Subcutaneous Solution Pen-injector; 83 units am 80 pm; 15. Pen Clarence 1/2" 29G X 12MM; 16. Unifine Pentips 32G X 4 MM; as directed; 17. FreeStyle Test In Vitro Strip; test 4 times a day and PRN; 18. Potassium Chloride ER 20 MEQ Oral Tablet Extended Release; TAKE 3 TABLET Twice 19. Lisinopril 10 MG Oral Tablet; TAKE 1 TABLET DAILY; 20. Desloratadine 5 MG Oral Tablet; TAKE 1 TABLET DAILY; 21. Qnasl 80 MCG/ACT Nasal Aerosol Solution; (12) spray each nostril daily; 22. DilTIAZem HCl - 30 MG Oral Tablet; TAKE 1 TABLET 4 TIMES DAILY, BEFORE MEALS 23. Dorzolamide HCl - 2 % Ophthalmic Solution; INSTILL 1 DROP INTO BOTH EYES 2 24. Furosemide 80 MG Oral Tablet; TAKE 1 TABLET TWICE DAILY; 25. Latanoprost 0.005 % Ophthalmic Solution; INSTILL 1 DROP IN BOTH EYES AT 26. Lipitor 80 MG Oral Tablet; TAKE 1 TABLET DAILY; 27. MetOLazone 5 MG Oral Tablet; TAKE 2 TABLET ONCE DAILY; 28. Metoprolol Tartrate 25 MG Oral Tablet; Take 1 tablet daily; 29. Mucinex Maximum Strength 1200 MG Oral Tablet Extended Release 12 Hour 30. Multi-Day Vitamins TABS; TAKE 1 TABLET DAILY; 31. Mupirocin 2 % External Ointment; APPLY A SMALL AMOUNT 3 TIMES DAILY 32. Nitrostat 0.4 MG Sublingual Tablet Sublingual; 33. NovoLOG FlexPen 100 UNIT/ML Subcutaneous Solution Pen-injector; 34. Spironolactone 25 MG Oral Tablet; TAKE 1 TABLET TWICE DAILY; 35. TraMADol HCl - 50 MG Oral Tablet; 36. Xarelto 20 MG Oral Tablet; one daily; Allergies 1. No Known Drug Allergies 2. Other Historian: patient, EMS Review of Systems Constitutional: reports: weakness Eyes: reports: no symptoms ENT: reports: as stated in HPI Cardiovascular: reports: no symptoms Respiratory: reports: as stated in HPI Gastrointestinal: reports: no symptoms Genitourinary - Male: reports: no symptoms Musculoskeletal: reports: no symptoms Integumentary: reports: no symptoms Neurologic: reports: no symptoms Psychiatric: reports: no symptoms Endocrine: no symptoms Hematologic / Lymphatic: no symptoms Allergic / Immunologic: no symptoms Past Medical History Past Medical History: Please refer to HPI Past Surgical History: Please refer to HPI Family History Diabetes mellitus Heart disease Hypertension Please refer to HPI Parent: Asthma, Heart Disease, Other Social History Please refer to HPI Hx Tobacco Use In Past Year?: No Smoking Status: Former Smoker Drug Use: none Marital status: Housing status: lives with family Occupational Status: unemployed Immunizations History of Influenza Vaccine: Yes History of Pneumococcal: Yes History of MDRO History of MDRO: Yes Type of MDRO: MRSA Allergies Coded Allergies: [place] (Verified Allergy, Severe, Difficulty breathing, 10/15/17) Sodium Hypochlorite (Verified Allergy, Unknown, HIVES AND RESPIRATORY DIFFICULTY FROM CLOROX, 10/15/17) Current Medications Reported Home Medications Medications Dose Route/Sig Max Daily Dose Days Date Category Dose Instructions Lantus Solostar (Insulin Glargine) 100 Unit/Ml Inj 115 SC QPM 10/15/17 Reported Lantus Solostar (Insulin Glargine) 100 Unit/Ml Inj 118 SC QAM 10/15/17 Reported Bumetanide 1 Mg Tab 2 Mg PO QAM 30 07/16/17 Rx Sodium Chloride 1 Gm Tab 1 Gm PO DAILY 07/12/17 Reported Lopressor (Metoprolol Tartrate) 25 Mg Tab 25 Mg PO BID 07/12/17 Reported Diltiazem Hcl Er (Diltiazem Hcl) 120 Mg Cap 1 Cap PO DAILY 07/12/17 Reported Arnuity Ellipta (Fluticasone Furoate (Inhalatio) 200 Mcg/Act Inh 1 Puff INH DAILY 07/12/17 Reported Zaroxolyn (Metolazone) 5 Mg Tab 5 Mg PO DAILY 07/12/17 Reported Klor-Con (Potassium Chloride) 20 Meq Tabcr 3 Tab PO BID 07/12/17 Reported Ultram (Tramadol HCl) 50 Mg Tab 50 Mg PO Q8H PRN 03/18/17 Reported Xalatan 0.005% Oph Vanessa (Latanoprost) 0.005 % Vanessa 1 Drops OP HS 11/14/16 Reported Ventolin Hfa (Albuterol) 200 Puffs/14988 Mcg Aers 1 Puffs INH QID PRN 10/28/16 Reported Bacitracin (Bacitracin (Topical)) 500 Unit/Gm Oin 1 Appln TOP DAILY 07/15/16 Reported Mucinex Maximum Strength (Guaifenesin) 1,200 Mg Tab 1,200 Mg PO BID 07/15/16 Reported Novolog Flexpen (Insulin Aspart) 100 Units/Ml Inj 95 Units SC DINNER 07/15/16 Reported over 200 +4 over 250 +8 over 300 +10 Novolog Flexpen (Insulin Aspart) 100 Units/Ml Inj 70 Units SC LUNCH 07/15/16 Reported over 200 +4 over 250 +8 over 300 +10 Novolog Flexpen (Insulin Aspart) 100 Units/Ml Inj 100 Units SQ BREAKFAST 07/15/16 Reported over 200 +4 over 250 +8 over 300 +10 Qnasl (Beclomethasone Dipropionate (N) 80 Mcg/Act Aer 1 [place] SIMBA DAILY 07/15/16 Reported Aldactone (Spironolactone) 25 Mg Tab 25 Mg PO BID 07/15/16 Reported Glucagon Emergency Kit (Glucagon) 1 Mg Kit 1 Dose INJ UD 07/15/16 Reported Clarinex (Desloratadine) 5 Mg Tab 5 Mg PO DAILY 07/15/16 Reported Aspirin 81 (Aspirin) 81 Mg Tab 81 Mg PO DAILY 07/15/16 Reported Trusopt Oph (Dorzolamide Hcl) 2 % Vanessa 1 Drops OP BID 05/03/16 Reported Mag-Ox (Magnesium Oxide) 400 Mg Tab 400 Mg PO TID 04/02/16 Reported Isosorbide Mononitrate ER (Isosorbide Mononitrate) 30 Mg Tabcr 30 Mg PO DAILY 09/13/15 Reported Duoneb (Ipratropium-Albuterol) 3 Ml Nebu 1 Treatment INH Q4H 07/17/15 Reported Nitrostat (Nitroglycerin) 0.4 Mg Tab 1 Tab SL UD 07/17/15 Reported Lorazepam 1 Mg Tab 1 Mg PO QID PRN 07/17/15 Reported Xarelto (Rivaroxaban) 20 Mg Tab 20 Mg PO DAILY 07/17/15 Reported [place]-3 (Fish Oil) 1 Ea Cap 1 Cap PO DAILY 04/28/13 Reported Mvi With Minerals (Multivitamins/Minerals) Tab 1 Tab PO DAILY 04/28/13 Reported Zestril (Lisinopril) 10 Mg Tab 10 Mg PO DAILY 04/28/13 Reported Lipitor (Atorvastatin Calcium) 80 Mg Tab 80 Mg PO DAILY 04/28/13 Reported Physical Physical Exam Vital Signs: Date Time Temp Pulse Resp B/P (MAP) Pulse Ox O2 Delivery O2 Flow Rate FiO2 10/16/17 04:33 36.6 94 22 185/70 (108) 97 Trach Collar 6.0 10/16/17 04:00 Trach Collar 6.0 96 10/16/17 00:06 89 24 95 Trach Collar 8.0 10/16/17 00:00 Trach Collar 6.0 98 10/15/17 22:48 37.3 84 20 135/81 (99) 98 Trach Collar 6.0 10/15/17 22:00 104 154/80 (104) 10/15/17 20:45 36.8 100 20 150/78 (102) 96 6.0 10/15/17 17:44 100 Trach Collar 12.0 10/15/17 17:34 103 28 121/87 100 Trach Collar 12.0 10/15/17 16:30 100 Trach Collar 15.0 10/15/17 15:50 93 26 95 Trach Collar 8.0 10/15/17 15:28 Room Air 5.0 10/15/17 15:02 36.7 104 22 191/80 96 General Appearance: mild distress Head: NORMOCEPHALIC, ATRAUMATIC Eyes: PERRLA, NO DISCHARGE, EOMI, SCLERAE NORMAL ENT: other (Ostomy site clean no signs of breakdown or active bleeding) Neck: other (Tracheostomy site clean no breakdown no active bleeding) Respiratory: other (Mild rhonchi appreciated left lower lobe posterior subsegment) Cardiovasular: REGULAR RATE/RHYTHM, NORMAL S1S2, NO M/G/R, NO MURMUR Abdomen: NON TENDER, NORMAL BOWEL SOUNDS, NO REBOUND, NO MASSES, NO GUARDING Genitourinary - Male: EXTERNAL GENITALIA NORMAL Back: NORMAL INSPECTION, NO MIDLINE TENDERNESS, NO CVA TENDERNESS, NO PARAVERTEBRAL TTP Upper Extremities: NO EDEMA, NO DEFORMITY, NORMAL ROM Lower Extremities: other (1+ bilateral lower extremity edema) Edema: RUE Pulses: carotid (R) (1+), carotid (L) (1+), posterior tibial (R), posterior tibial (L) (1+) Neuro: ALERT, ORIENTED x 3, NORMAL MOTOR EXAM, NORMAL SENSATION, NORMAL CEREBELLAR EXAM, NORMAL SPEECH Reflexes: biceps (R) (2+), bicpes (L) (2+), achilles (R) (2+), achilles (L) (2+ ) Babinski Testing: right (downgoing), left (downgoing) Psychiatric: NORMAL AFFECT, NO SUICIDAL IDEATION, CONTRACTS FOR SAFETY Diagnostics Labs Results Past 24 Hours Test 10/15/17 16:27 10/15/17 22:11 10/16/17 02:15 10/16/17 04:44 Range/Units White Blood Count 11.16 4.8-10.8 K/uL Red Blood Count 4.35 4.7-6.1 M/uL Hemoglobin 12.5 14.0-18.0 g/dL Hematocrit 38.4 42-52 % Mean Corpuscular Volume 88.3 80-100 fL Mean Corpuscular Hemoglobin 28.7 25-34 pg Mean Corpuscular Hemoglobin Concent 32.6 32-36 g/dl Platelet Count 146 130-400 K/uL Mean Platelet Volume 11.6 7.4-10.4 fL Neutrophils (%) (Auto) 75.8 % Lymphocytes (%) (Auto) 14.2 % Monocytes (%) (Auto) 8.8 % Eosinophils (%) (Auto) 0.5 % Basophils (%) (Auto) 0.2 % Neutrophils # (Auto) 8.45 1.4-6.5 K/uL Lymphocytes # (Auto) 1.59 1.2-3.4 K/uL Monocytes # (Auto) 0.98 0.11-0.59 K/uL Eosinophils # (Auto) 0.06 0-0.5 K/uL Basophils # (Auto) 0.02 0-0.2 K/uL RDW Standard Deviation 49.0 36.4-46.3 fL RDW Coefficient of Variation 15.2 11.5-14.5 % Immature Granulocyte % (Auto) 0.5 % Immature Granulocyte # (Auto) 0.06 0.00-0.02 K/uL Prothrombin Time 11.5 9.0-12.0 SECONDS Prothromb Time International Ratio 1.1 0.9-1.1 Activated Partial Thromboplast Time 24.0 21.0-31.0 SECONDS Partial Thromboplastin Ratio 0.9 Sodium Level 130 136-145 mmol/L Potassium Level 4.3 3.5-5.1 mmol/L Chloride Level 93 98-107 mmol/L Carbon Dioxide Level 30 21-32 mmol/L Anion Gap 7.0 3-11 mmol/L Blood Urea Nitrogen 15 7-18 mg/dl Creatinine 0.84 0.60-1.40 mg/dl Est Creatinine Clear Calc Drug Dose 168.4 ml/min Estimated GFR () 108.8 Estimated GFR (Non- 93.8 BUN/Creatinine Ratio 17.5 10-20 Random Glucose 310 70-99 mg/dl Calcium Level 9.0 8.5-10.1 mg/dl Troponin I 0.024 0-0.045 ng/ml Beta-Hydroxybutyric Acid 1.54 0.2-2.81 mg/dL Hepatitis C Antibody Screen NEG NEG Bedside Glucose 381 349 70-99 mg/dl Test 10/16/17 06:17 Range/Units Bedside Glucose 380 70-99 mg/dl Microbiology Results 10/15/17 Blood Culture, Received Pending 10/15/17 Blood Culture, Received Pending Diagnostic Radiology Decrease overall lung volume with opacification of the left costophrenic angle EKG Atrial fibrillation rate 110 Impression Assessment and Plan 62-year-old morbidly obese male with tracheostomy secondary to severe obesity hypoventilation syndrome and active sputum and hemoptysis: 1. Hemoptysis: At this time the patient has agreed to move forward with bronchoscopy for further evaluation of his hemoptysis and active signs of infection. 2. Right lower lobe nodule: This nodule does show popcorn calcification and has been seen on CT imaging 05/25/2014 as well as 05/04/2016. Per the 2017 flexure criteria no further follow-up is necessary. There is also a small calcification just medial posterior to this which suggests previous lung injury. 3. ALLIE: Patient has severe obstructive sleep apnea possibly obesity hypoventilation syndrome currently trached
[2017-10-16] MEDS: CLARINEX~ORDER AWAITING ACTION SCH ×3 (07:40→16:00)
[2017-10-16 07:42] LABS: EOS % 0.1 %; EOS ABS # 0.01 K/uL (0-0.5); HEMATOCRIT 37.6 % (42-52); HEMOGLOBIN 12.8 g/dL (14.0-18.0); IG# 0.05 K/uL (0.00-0.02); LYMPH % 6.7 %; MEAN CELL VOLUME 86.8 fL (80-100); MEAN CORPUSCULAR HEMOGLOBIN 29.6 pg (25-34); MEAN PLATELET VOLUME 11.7 fL (7.4-10.4); MONO % 1.9 %; MONO ABS # 0.23 K/uL (0.11-0.59); NEUT % 90.9 %; NEUT ABS # 10.86 K/uL (1.4-6.5); PLATELET COUNT 151 K/uL (130-400); RED CELL DISTRIBUTION WIDTH CV 15.1 % (11.5-14.5); RED CELL DISTRIBUTION WIDTH SD 47.9 fL (36.4-46.3); WHITE BLOOD COUNT 11.95 K/uL (4.8-10.8)
[2017-10-16 08:18] LABS: ALBUMIN 3.5 gm/dl (3.4-5.0); CALCIUM 9.1 mg/dl (8.5-10.1); CREATININE 0.94 mg/dl (0.60-1.40); POTASSIUM 4.6 mmol/L (3.5-5.1); TOTAL PROTEIN 7.4 gm/dl (6.4-8.2)
[2017-10-16] MEDS: INSULIN ASPART 100 UNITS/ML VIAL SQ SCH (08:23)
[2017-10-16] MEDS: INSULIN GLARGINE SC SCH ×2 (08:24→22:02)
[2017-10-16] MEDS ORDERED: NURSING VERBAL MED ORDER ONE ×4 (08:27→16:15)
--- NOTE | 2017-10-16 08:40 | Pre Sedation Assessment ---
Pre Sedation Assessment General Date of Sedation: Oct 16, 2017. Vital Signs Past 12 Hours Date Time Temp Pulse Resp B/P (MAP) Pulse Ox O2 Delivery O2 Flow Rate FiO2 10/16/17 07:48 36.7 80 22 142/73 (96) 95 Trach Collar 10.0 10/16/17 07:02 85 24 96 Trach Collar 8.0 10/16/17 04:33 36.6 94 22 185/70 (108) 97 Trach Collar 6.0 10/16/17 04:00 Trach Collar 6.0 96 10/16/17 00:06 89 24 95 Trach Collar 8.0 10/16/17 00:00 Trach Collar 6.0 98 10/15/17 22:48 37.3 84 20 135/81 (99) 98 Trach Collar 6.0 10/15/17 22:00 104 154/80 (104) 10/15/17 20:45 36.8 100 20 150/78 (102) 96 6.0 Review Cardiovascular: regular rate, rhythm, no edema, no gallop, no JVD, no murmur, normal peripheral pulses Lungs: + pertinent finding Pre-Sedation Airway Assessment Smoking Status: Former Smoker Hx of Sleep Apnea: Yes Hx of difficult intubation: Yes Short Thick Neck: Yes Thyro-mental Distance: > 3 Finger Breadths Oral Cavity: Dentures ASA Classification: Class III Procedure Planning Contraindications for Sedation: None Current Medications Reviewed: Yes Notes The planned sedation has been discussed with the patient. Informed Consent was obtained. I have identified the patient, determined the appropriateness of sedation and have assessed the patient immediately prior to the procedure. All medicine(s) and interventions are by my order.
[2017-10-16] MEDS ORDERED: BECLOMETHASONE DIPROPIONATE SCH (09:00)
[2017-10-16] MEDS: BACITRACIN OINT 15 GM TUBE TOP SCH (09:00)
[2017-10-16] MEDS ORDERED: SILVER NITR/POTASSIUM NITRATE APPLICATOR ONE (09:04)
[2017-10-16 09:05] LABS: HEMOGLOBIN A1C 8.9 % (4.5-5.6)
[2017-10-16] MEDS ORDERED: MICONAZOLE NITRATE POWDER 43 GM EXT PRN (09:15)
[2017-10-16] MEDS ORDERED: NURSING DECISION MEDICATION ORDER SCH (09:15)
[2017-10-16] MEDS ORDERED: SILVER NITR/POTASSIUM NITRATE APPLICATOR EXT PRN (09:30)
--- NOTE | 2017-10-16 09:41 | Bronchoscopy Procedure Note ---
Bronchoscopy Procedure Note Procedure: Bronchoscopy, conscious sedation, bronchial lavage Consent: Obtained through the patient placed into the chart Pre-procedural diagnosis: Hemoptysis Post-procedural diagnosis: Tracheostomy within normal limits and severe ALLIE with possible hypoventilation syndrome, possible aspiration Start time: 913 End time: 932 Total time: 19 minutes Analgesia: 2% liquid lidocaine: Via nebulizer 2% liquid lidocaine: Via bronchoscopy Sedation: Versed IV: 3mg Fentanyl IV: 75g Procedure: The Olympus video bronchoscope was used for this procedure and passed down through the tracheostomy, tracheostomy tube was removed prior to the procedure Tracheostomy: Was mildly anterior displaced and there was a small false cavity between the skin as well as the tracheal rings and there is notable granulation but no active bleeding Trachea/Lawanda: Anatomically within normal limits, diffuse erythema especially along the posterior wall suggestive of aspiration Right bronchial tree: Right mainstem bronchus: Anatomically within normal limits Right upper lobe: Anatomically within normal limits Bronchus intermedius: Anatomically within normal limits Right middle lobe: Anatomically within normal limits Right lower lobe: Anatomically within normal limits Findings: Diffuse erythema especially in posterior wall Left bronchial tree: Left mainstem bronchus: Anatomically within normal limits Left upper lobe: Anatomically within normal limits Lingula: Anatomically within normal limits Left lower lobe: Anatomically within normal limits Findings: Diffuse erythema along the posterior wall Bronchial alveolar lavage: Left lower lobe EBL: None Complications: None Follow-up: ASU
[2017-10-16] MEDS ORDERED: PIPERACILL/TAZOBAC CONSULT ACTIVE PRN (09:45)
--- NOTE | 2017-10-16 09:46 | Post Sedation Assessment ---
Post Sedation Assessment General Date of Sedation Oct 16, 2017. Vital Signs: Vital Signs Past 12 Hours Date Time Temp Pulse Resp B/P (MAP) Pulse Ox O2 Delivery O2 Flow Rate FiO2 10/16/17 09:43 101 16 151/86 95 Trach Collar 6 30 10/16/17 09:38 100 16 131/90 95 Trach Collar 6 30 10/16/17 09:33 100 14 161/93 93 Trach Collar 6 30 10/16/17 09:30 100 14 91 Trach Collar 15 10/16/17 09:25 100 14 162/84 91 Trach Collar 15 10/16/17 09:20 100 14 133/75 93 Trach Collar 15 10/16/17 09:15 96 14 166/119 98 Trach Collar 6 10/16/17 09:10 97 14 148/82 98 Trach Collar 6 10/16/17 09:00 97 14 169/108 98 Trach Collar 6 10/16/17 08:55 97 14 169/108 98 Trach Collar 6 10/16/17 08:50 10/16/17 08:45 98 12 159/90 97 Trach Collar 6 10/16/17 08:00 98 Trach Collar 10.0 10/16/17 07:48 36.7 80 22 142/73 (96) 95 Trach Collar 10.0 10/16/17 07:02 85 24 96 Trach Collar 8.0 10/16/17 04:33 36.6 94 22 185/70 (108) 97 Trach Collar 6.0 10/16/17 04:00 Trach Collar 6.0 96 10/16/17 00:06 89 24 95 Trach Collar 8.0 10/16/17 00:00 Trach Collar 6.0 98 10/15/17 22:48 37.3 84 20 135/81 (99) 98 Trach Collar 6.0 10/15/17 22:00 104 154/80 (104) Post Procedure Recovery Score Activity: (2) Moves 4 extremities * Respiration: (2) Deep breath/cough Circulation: (2) +/-20% PreAnes Value Consciousness: (2) Fully Awake Oxygen Saturation: (2) > 92% On Room Air Post Anesthesia Score: 10 Discharge Sedation Level of Care: Fast Track Phase II Post Sedation Plan On clinical assessment, the patient appears to have tolerated the sedation without complications. Patient is recovering as anticipated. Patient will continue to be monitored by nursing and may be discharged when sedation discharge criteria are met per below protocol. Upon Completions of procedure and additional 15 minutes continue every 5 minute vital signs and the P.A.R. score; then discharge to a Phase I or Fast Track to Phase II per the following guidelines: * Discharge Patient to appropriate Phase II area if PAR is 8 or greater or return to pre- procedure baseline. The post - procedure orders will be as directed. * If PAR score is less than 8 or not return to pre-procedure baseline then patient will follow Phase I monitoring till PAR is reached for Phase II. The Phase I may be done in procedure room or may call to secure a Phase I area. * If naloxone or flumazenil are used for reversal, hold in Phase I for an additional 60 -120 minutes before discharge to Phase II. Please call the Sedation Physician to re-evaluate and complete post-note for discharge to Phase II area. Do NOT discharge from procedure sedation or Phase 1 until post- sedation evaluation note is complete by procedure /sedation MD Sedation Discharge Instructions to be given to the patient at discharge to home.
[2017-10-16] MEDS ORDERED: FENTANYL CITRATE INJ 50 MCG/1 ML 2 ML VIAL IV ONE (09:54)
[2017-10-16] MEDS ORDERED: LIDOCAINE 4% INH SOLN 4 ML BTL TOP ONE (09:54)
[2017-10-16] MEDS ORDERED: LIDOCAINE VISCOUS 2% 100ML TOP ONE (09:54)
[2017-10-16] MEDS ORDERED: MIDAZOLAM HCL 5 MG/ML 1 ML VIAL IV ONE (09:54)
[2017-10-16] MEDS: METOPROLOL TARTRATE 25 MG TAB PO SCH ×2 (10:25→21:40)
[2017-10-16] MEDS: DILTIAZEM HCL 120 MG ER CAP PO SCH (10:25)
[2017-10-16] MEDS: ATORVASTATIN 40 MG TAB PO SCH (10:25)
[2017-10-16] MEDS: MAGNESIUM OXIDE 400 MG TAB PO SCH ×3 (10:25→21:42)
[2017-10-16] MEDS: POTASSIUM CHLORIDE 20 MEQ TABCR PO SCH ×2 (10:26→21:39)
[2017-10-16] MEDS: GUAIFENESIN 600 MG TABCR PO SCH ×2 (10:26→21:41)
[2017-10-16] MEDS: BUMETANIDE 1 MG TAB PO SCH (10:26)
[2017-10-16] MEDS: SPIRONOLACTONE 25 MG TAB PO SCH ×2 (10:26→17:44)
[2017-10-16] MEDS: CEROVITE ADV FORMULA TAB PO SCH (10:26)
[2017-10-16] MEDS: SODIUM CHLORIDE 1 GM TAB PO SCH (10:27)
[2017-10-16] MEDS: METOLAZONE 5 MG TAB PO SCH (10:27)
[2017-10-16] MEDS: ASPIRIN 81 MG ECTAB PO SCH (10:27)
[2017-10-16] MEDS: RIVAROXABAN 10 MG TAB PO SCH (10:27)
[2017-10-16] MEDS: LISINOPRIL 10 MG TAB PO SCH (10:27)
[2017-10-16] MEDS: ISOSORBIDE MONONITRATE 30 MG TABCR PO SCH (10:27)
[2017-10-16] MEDS: DORZOLAMIDE HCL 2% OPH SOLN 10 ML BTL OP SCH ×2 (10:28→21:38)
[2017-10-16] MEDS: BECLOMETHASONE DIPROPIONATE SCH (10:28)
[2017-10-16] MEDS ORDERED: PIPERACILL/TAZOBAC IV 4.5 GM in DEXTROSE 5% 100ML IV SCH (11:00)
[2017-10-16] MEDS ORDERED: PIPERACILL/TAZOBAC IV 4.5 GM in DEXTROSE 5% 100ML IV ONE (11:00)
[2017-10-16] MEDS ORDERED: PIPERACILL/TAZOBAC IV 3.375 GM in DEXTROSE 5% 100ML 100 ML IV SCH (12:00)
--- NOTE | 2017-10-16 12:37 | Clinical Documentation Query ---
CLINICAL DOCUMENTATION QUERY Dr. MCCRACKEN, In your clinical opinion is this patient being managed for: ( ) Chronic diastolic CHF ( ) Not Agree ( x ) Other explanation of clinical findings (Please Explain) - acute/chronic diastolic CHF ( ) Unable to determine (Please Define) ( ) Need to Discuss The medical record reflects the following clinical findings, treatment, and risk factors. Clinical Indicators: 62 yo male presenting with dyspnea and copious tracheostomy secretions. Noted to have a PMH of CHF. ECHO from May 2016 showed EF 50-55%. Treatment:chronic management includes bumex, diltiazem, zestril, zaroxolyn, Lopressor, aldactone, Risk Factors: HTN, COPD, morbid obesity, DM, CAD, ALLIE Please clarify and document your clinical opinion in the progress notes and discharge summary. Terms such as "probable", "suspected", "likely", "questionable", "possible", or "still to be ruled out" are acceptable. IF IN AGREEMENT, YOU MUST DOCUMENT ABOVE DIAGNOSTIC STATEMENT IN DAILY PROGRESS NOTES AND DISCHARGE SUMMARY. This document is not part of the patient's record. Thank You, Liana Fajardo, REED [phone]
--- NOTE | 2017-10-16 16:38 | Hospitalist Progress Note ---
Hospitalist Progress Note Date of Service Oct 16, 2017. (Marjorie Vega ., PETE-C) Subjective Pt evaluation today including: conversation w/ patient, physical exam, chart review, lab review, review of inpatient medication list Pain: None PO Intake: Tolerating PO diet Voiding: no voiding problems Patient complains of SOB. He states it is slightly improved after washing out from bronch but not much. He complains of significant weakness and fatigue. He also complains of wheezing and states he had productive cough and hemoptysis prior to arrival, as well as secretions from trach. Secretions are improved after bronch. The patient denies fevers, chills, sweats, chest pain, palpitations, claudication, nausea, vomiting, abdominal pain, dysuria, hematuria , urinary retention, paralysis, focal motor weakness, numbness and tingling. Additional Comments: See HPI for pertinent positives and negatives. All other systems reviewed and negative. (Marjorie Vega ., PA-C) Objective Vital Signs Date Time Temp Pulse Resp B/P (MAP) Pulse Ox O2 Delivery O2 Flow Rate FiO2 10/16/17 16:07 36.7 94 22 132/69 (90) 99 Nasal Cannula 6.0 10/16/17 14:17 93 23 96 Trach Collar 8.0 10/16/17 12:00 96 Trach Collar 6.0 10/16/17 11:53 36.5 93 22 168/78 (108) 96 9.0 10/16/17 10:05 36.7 89 22 149/72 (97) 94 Trach Collar 6.0 30 88 10/16/17 09:48 100 16 136/93 93 Trach Collar 6 30 10/16/17 09:43 101 16 151/86 95 Trach Collar 6 30 10/16/17 09:38 100 16 131/90 95 Trach Collar 6 30 10/16/17 09:33 100 14 161/93 93 Trach Collar 6 30 10/16/17 09:30 100 14 91 Trach Collar 15 10/16/17 09:25 100 14 162/84 91 Trach Collar 15 10/16/17 09:20 100 14 133/75 93 Trach Collar 15 10/16/17 09:15 96 14 166/119 98 Trach Collar 6 10/16/17 09:10 97 14 148/82 98 Trach Collar 6 10/16/17 09:00 97 14 169/108 98 Trach Collar 6 10/16/17 08:55 97 14 169/108 98 Trach Collar 6 10/16/17 08:50 10/16/17 08:45 98 12 159/90 97 Trach Collar 6 10/16/17 08:00 98 Trach Collar 10.0 10/16/17 07:48 36.7 80 22 142/73 (96) 95 Trach Collar 10.0 10/16/17 07:02 85 24 96 Trach Collar 8.0 10/16/17 04:33 36.6 94 22 185/70 (108) 97 Trach Collar 6.0 10/16/17 04:00 Trach Collar 6.0 96 10/16/17 00:06 89 24 95 Trach Collar 8.0 10/16/17 00:00 Trach Collar 6.0 98 10/15/17 22:48 37.3 84 20 135/81 (99) 98 Trach Collar 6.0 10/15/17 22:00 104 154/80 (104) 10/15/17 20:45 36.8 100 20 150/78 (102) 96 6.0 10/15/17 17:44 100 Trach Collar 12.0 10/15/17 17:34 103 28 121/87 100 Trach Collar 12.0 10/15/17 16:30 100 Trach Collar 15.0 (Marjorie Vega ., PA-C) Physical Exam Notes: General appearance: +Morbidly obese. Well-developed, well-nourished, no apparent distress Head: Normocephalic, atraumatic Eyes: Normal inspection, PERRL, EOMI ENT: +Trach in place w/collar on 6L. Normal ENT inspection, hearing grossly normal, pharynx normal Neck: Supple, no JVD, trachea midline Respiratory/Chest: +Diffuse wheezing, decreased breath sounds. No respiratory distress Cardiovascular: Regular rate & rhythm, no gallop, no murmur Abdomen/GI: Normal bowel sounds, non-tender, soft Extremities/Musculoskeletal: +Chronic venous stasis changes R>L. 2+ pitting edema. No calf tenderness Neurological/Psych: Alert, normal mood/affect, oriented x 3 Skin: Normal color, warm/dry, no rash (Marjorie Vega ., PA-C) Laboratory Results Last 24 Hours Test 10/15/17 16:27 10/15/17 22:11 10/15/17 23:48 10/16/17 02:15 White Blood Count 11.16 K/uL Red Blood Count 4.35 M/uL Hemoglobin 12.5 g/dL Hematocrit 38.4 % Mean Corpuscular Volume 88.3 fL Mean Corpuscular Hemoglobin 28.7 pg Mean Corpuscular Hemoglobin Concent 32.6 g/dl Platelet Count 146 K/uL Mean Platelet Volume 11.6 fL Neutrophils (%) (Auto) 75.8 % Lymphocytes (%) (Auto) 14.2 % Monocytes (%) (Auto) 8.8 % Eosinophils (%) (Auto) 0.5 % Basophils (%) (Auto) 0.2 % Neutrophils # (Auto) 8.45 K/uL Lymphocytes # (Auto) 1.59 K/uL Monocytes # (Auto) 0.98 K/uL Eosinophils # (Auto) 0.06 K/uL Basophils # (Auto) 0.02 K/uL RDW Standard Deviation 49.0 fL RDW Coefficient of Variation 15.2 % Immature Granulocyte % (Auto) 0.5 % Immature Granulocyte # (Auto) 0.06 K/uL Prothrombin Time 11.5 SECONDS Prothromb Time International Ratio 1.1 Activated Partial Thromboplast Time 24.0 SECONDS Partial Thromboplastin Ratio 0.9 Sodium Level 130 mmol/L Potassium Level 4.3 mmol/L Chloride Level 93 mmol/L Carbon Dioxide Level 30 mmol/L Anion Gap 7.0 mmol/L Blood Urea Nitrogen 15 mg/dl Creatinine 0.84 mg/dl Est Creatinine Clear Calc Drug Dose 168.4 ml/min Estimated GFR () 108.8 Estimated GFR (Non- 93.8 BUN/Creatinine Ratio 17.5 Random Glucose 310 mg/dl Calcium Level 9.0 mg/dl Troponin I 0.024 ng/ml Beta-Hydroxybutyric Acid 1.54 mg/dL Hepatitis C Antibody Screen NEG Bedside Glucose 381 mg/dl 392 mg/dl 349 mg/dl Test 10/16/17 06:17 10/16/17 07:02 10/16/17 11:28 10/16/17 11:32 Bedside Glucose 380 mg/dl 358 mg/dl White Blood Count 11.95 K/uL Red Blood Count 4.33 M/uL Hemoglobin 12.8 g/dL Hematocrit 37.6 % Mean Corpuscular Volume 86.8 fL Mean Corpuscular Hemoglobin 29.6 pg Mean Corpuscular Hemoglobin Concent 34.0 g/dl Platelet Count 151 K/uL Mean Platelet Volume 11.7 fL Neutrophils (%) (Auto) 90.9 % Lymphocytes (%) (Auto) 6.7 % Monocytes (%) (Auto) 1.9 % Eosinophils (%) (Auto) 0.1 % Basophils (%) (Auto) 0.0 % Neutrophils # (Auto) 10.86 K/uL Lymphocytes # (Auto) 0.80 K/uL Monocytes # (Auto) 0.23 K/uL Eosinophils # (Auto) 0.01 K/uL Basophils # (Auto) 0.00 K/uL RDW Standard Deviation 47.9 fL RDW Coefficient of Variation 15.1 % Immature Granulocyte % (Auto) 0.4 % Immature Granulocyte # (Auto) 0.05 K/uL Sodium Level 132 mmol/L Potassium Level 4.6 mmol/L Chloride Level 95 mmol/L Carbon Dioxide Level 29 mmol/L Anion Gap 8.0 mmol/L Blood Urea Nitrogen 19 mg/dl Creatinine 0.94 mg/dl Est Creatinine Clear Calc Drug Dose 156.7 ml/min Estimated GFR () 100.3 Estimated GFR (Non- 86.5 BUN/Creatinine Ratio 19.7 Random Glucose 331 mg/dl Estimated Average Glucose 209 mg/dl Hemoglobin A1c 8.9 % Calcium Level 9.1 mg/dl Magnesium Level 1.9 mg/dl Total Bilirubin 1.0 mg/dl Aspartate Amino Transf (AST/SGOT) 23 U/L Alanine Aminotransferase (ALT/SGPT) 37 U/L Alkaline Phosphatase 88 U/L Total Protein 7.4 gm/dl Albumin 3.5 gm/dl Globulin 3.9 gm/dl Albumin/Globulin Ratio 0.9 Beta-Hydroxybutyric Acid 2.98 mg/dL (Marjorie Vega, PETE-C) Assessment and Plan 62 y/o male with a history of a-fib, HTN, HLD, chronic diastolic CHF, CAD, COPD , severe ALLIE w/trach, DM II, and chronic lower extremity swelling/cellulitis who presents with shortness of breath, productive cough and hemoptysis. Acute respiratory failure--stable -Admit to telemetry. Rate controlled a-fib overnight with HR 70s-90s. Leads not staying on and tele is stable, will transfer to med/surg -O2 by protocol via trach collar -Pulmonology consulted, appreciate recs: Video swallow for possible aspiration , start Zosyn -Bronchoscopy showed diffuse erythema suggestive of aspiration -Zosyn for possible aspiration -Check rapid flu -Blood cultures pending -Urine legionella pending -Continue Solu-Medrol 60 mg IV q6h -Xopenex/Atrovent nebs q6h -Add Mucomyst nebs TID A-fib, HTN, HLD, CAD. chronic diastolic CHF--stable, a-fib rate controlled -Continue ASA, Lipitor 80 mg PO qd, Bumex 2 mg PO qd, diltiazem 120 mg PO qd, Imdur 30 mg PO qd, lisinopril 10 mg PO qd, metolazone 5 mg PO qd, Lopressor 25 mg PO BID, Xarelto 20 mg PO qd, spironolactone 25 mg PO BID COPD, severe ALLIE w/trach -Continue nebs as above, home inhalers DM II--HgbA1c 8.9 here -Continue pt's home insulin regimen (high doses Novolog/Lantus). He is very resistant to changing this regimen -Seen by clinical systems educator who recommends 1 unit insulin: 1 gram carb ratio and correction factor of 5 with BSG goal 120-140 to replace pre-set Novolog doses -Tighten pt's sliding scale on top of his preset Novolog doses Chronic lower extremity edema/cellulitis -Wound care nurse consulted DVT prophylaxis -Xarelto Code Status -Level I, FULL RESUSCITATION STATUS (Marjorie Vega ., PA-C) Attending Attestation - Pt seen/examined, chart reviewed, care plan d/w PETE Vega. I agree w/ the jerez components of her documentation. Pt c/o extreme fatigue x 2 days. Multiple grandchildren have been sick with fevers/URI symptoms. He continues with wheezing. BSGs high. VSS no fever BSGs 300s gen - looks exhausted/tired, coughing trach - clean heart - irregular, HR<100 lungs - mild wheezing b/l, decreased BS abd - soft, obese ext - trace-1+ edema b/l, stasis changes b/l legs skin - no cellulitis either foot or chambers A/P: 1. COPD exacerbation - cont steroids, nebs; add mucomyst to nebs 2. suspected aspiration pneumonia - zosyn, speech eval, video swallow if able to tolerate 3. chronic diastolic CHF - compensated 4. uncontrolled T2DM - tighten his correction factor; he is typically resistant to modifying his home lantus/novolog doses check flu PCR; even if negative, given his extreme fatigue/weakness/myalgias/ cough/etc, consider empiric Rx with tamiflu Homer Fink MD (Homer Fink MD)
[2017-10-16 17:38] LABS: INFLUENZA A PCR Neg for Influ A (NEG); INFLUENZA B PCR Neg for Influ B (NEG)
[2017-10-16] MEDS ORDERED: OSELTAMIVIR PHOSPHATE 75 MG CAP PO STA (17:49)
[2017-10-16] MEDS: PIPERACILL/TAZOBAC IV 4.5 GM in DEXTROSE 5% 100ML IV SCH (18:43)
[2017-10-16] MEDS: ACETYLCYSTEINE 20% INHAL SOLN ***DISPENSED BY RESP. INH SCH (20:02)
[2017-10-16] MEDS: LATANOPROST 0.005% OP SOLN 2.5 ML BTL OP SCH (21:42)
[2017-10-16] MEDS: LORAZEPAM 1 MG TAB PO PRN (21:57)
[2017-10-16] MEDS: TRAMADOL HCL 50 MG TAB PO PRN (21:58)
[2017-10-16] MEDS ORDERED: SODIUM CHLORIDE 0.65% NA SOLN 45 ML (OCEAN) ONE (23:54)
[2017-10-17] VITALS (7 sets, daily range): BP systolic 114–144; BP diastolic 51–73; PULSE 72–91; TEMP 36.4–36.7; O2SAT 96–98
[2017-10-17] MEDS: PIPERACILL/TAZOBAC IV 4.5 GM in DEXTROSE 5% 100ML IV SCH ×3 (00:12→16:15)
[2017-10-17] MEDS: LEVALBUTEROL 1.25MG/0.5ML NEB INH SCH ×4 (02:05→19:54)
[2017-10-17] MEDS: IPRATROPIUM BROMIDE NEB SOLN 0.02% 2.5 ML VIAL INH SCH ×4 (02:05→19:54)
[2017-10-17] MEDS: METHYLPREDNISOLONE IV 60 MG in SYRINGE 0 ML IV SCH ×2 (06:05→18:22)
[2017-10-17 06:35] LABS: HEMATOCRIT 38.4 % (42-52); HEMOGLOBIN 12.5 g/dL (14.0-18.0); MEAN CELL VOLUME 88.1 fL (80-100); MEAN CORPUSCULAR HEMOGLOBIN 28.7 pg (25-34); MEAN CORPUSCULAR HGB CONC 32.6 g/dl (32-36); MEAN PLATELET VOLUME 11.7 fL (7.4-10.4); PLATELET COUNT 170 K/uL (130-400); RED CELL DISTRIBUTION WIDTH CV 15.2 % (11.5-14.5); RED CELL DISTRIBUTION WIDTH SD 48.4 fL (36.4-46.3); WHITE BLOOD COUNT 17.05 K/uL (4.8-10.8)
[2017-10-17 07:01] LABS: CALCIUM 8.8 mg/dl (8.5-10.1); CREATININE 1.01 mg/dl (0.60-1.40); POTASSIUM 3.8 mmol/L (3.5-5.1)
[2017-10-17] MEDS: ACETYLCYSTEINE 20% INHAL SOLN ***DISPENSED BY RESP. INH SCH ×2 (07:19→14:25)
[2017-10-17] MEDS: CLARINEX~ORDER AWAITING ACTION SCH ×3 (08:00→16:00)
[2017-10-17] MEDS ORDERED: OSELTAMIVIR PHOSPHATE 75 MG CAP PO SCH (08:00)
[2017-10-17] MEDS: BECLOMETHASONE DIPROPIONATE SCH (08:00)
[2017-10-17] MEDS: METOPROLOL TARTRATE 25 MG TAB PO SCH ×2 (08:24→20:39)
[2017-10-17] MEDS: DORZOLAMIDE HCL 2% OPH SOLN 10 ML BTL OP SCH ×2 (08:24→20:41)
[2017-10-17] MEDS: CEROVITE ADV FORMULA TAB PO SCH (08:24)
[2017-10-17] MEDS: ATORVASTATIN 40 MG TAB PO SCH (08:25)
[2017-10-17] MEDS: MAGNESIUM OXIDE 400 MG TAB PO SCH ×4 (08:25→20:40)
[2017-10-17] MEDS: ISOSORBIDE MONONITRATE 30 MG TABCR PO SCH (08:25)
[2017-10-17] MEDS: LISINOPRIL 10 MG TAB PO SCH (08:27)
[2017-10-17] MEDS: SPIRONOLACTONE 25 MG TAB PO SCH ×2 (08:28→16:15)
[2017-10-17] MEDS: DILTIAZEM HCL 120 MG ER CAP PO SCH (08:28)
[2017-10-17] MEDS: ASPIRIN 81 MG ECTAB PO SCH (08:29)
[2017-10-17] MEDS: BUMETANIDE 1 MG TAB PO SCH (08:30)
[2017-10-17] MEDS: RIVAROXABAN 10 MG TAB PO SCH (08:31)
[2017-10-17] MEDS: POTASSIUM CHLORIDE 20 MEQ TABCR PO SCH ×2 (08:31→20:40)
[2017-10-17] MEDS: METOLAZONE 5 MG TAB PO SCH (08:32)
[2017-10-17] MEDS: SODIUM CHLORIDE 1 GM TAB PO SCH (08:32)
[2017-10-17] MEDS: BACITRACIN OINT 15 GM TUBE TOP SCH (08:44)
[2017-10-17] MEDS: INSULIN GLARGINE SC SCH ×2 (08:52→20:47)
[2017-10-17] MEDS: INSULIN ASPART 100 UNITS/ML VIAL SC SCH ×6 (08:53→20:46)
[2017-10-17] MEDS: INSULIN ASPART 100 UNITS/ML VIAL SQ SCH (08:54)
[2017-10-17] MEDS: LORAZEPAM 1 MG TAB PO PRN (08:55)
[2017-10-17] MEDS: GUAIFENESIN 600 MG TABCR PO SCH ×2 (08:55→20:40)
--- NOTE | 2017-10-17 13:30 | Hospitalist Progress Note ---
Hospitalist Progress Note Date of Service Oct 17, 2017. (Marjorie Vega ., MITCHC) Subjective Pt evaluation today including: conversation w/ patient, physical exam, chart review, lab review, review of inpatient medication list Patient states shortness of breath and weakness are mildly improved but still much worse than baseline. He still complains of productive cough and intermittent hemoptysis. He complains of intermittent chest pressure while coughing, but this quickly resolves. The patient denies fevers, chills, sweats , palpitations, claudication, wheezing, nausea, vomiting, abdominal pain, dysuria, hematuria, urinary retention, paralysis, weakness, numbness and tingling. Additional Comments: See HPI for pertinent positives and negatives. All other systems reviewed and negative. (Marjorie Vega ., MITCHC) Objective Vital Signs Date Time Temp Pulse Resp B/P (MAP) Pulse Ox O2 Delivery O2 Flow Rate FiO2 10/17/17 08:18 36.7 75 20 126/67 (86) 97 10/17/17 07:25 Trach Collar 8.0 30 10/17/17 07:20 75 22 97 Trach Collar 8.0 40 10/17/17 02:05 88 22 96 Trach Collar 8.0 40 10/17/17 00:04 36.6 72 19 114/51 (72) 97 Trach Collar 8.0 10/17/17 00:00 Trach Collar 8.0 30 10/16/17 20:19 92 22 96 Trach Collar 8.0 40 10/16/17 20:00 Trach Collar 8.0 30 10/16/17 16:07 36.7 94 22 132/69 (90) 99 Nasal Cannula 6.0 10/16/17 16:02 96 Trach Collar 8.0 30 10/16/17 14:17 93 23 96 Trach Collar 8.0 (Marjorie Vega ., PETE-C) Physical Exam Notes: General appearance: +Morbidly obese. Well-developed, well-nourished, no apparent distress Head: Normocephalic, atraumatic Eyes: Normal inspection, PERRL, EOMI ENT: +Trach in place w/collar on 8L. Normal ENT inspection, hearing grossly normal, pharynx normal Neck: Supple, no JVD, trachea midline Respiratory/Chest: +Decreased breath sounds. Lungs clear to auscultation, no respiratory distress Cardiovascular: +Irregularly irregular, rate controlled. No gallop, no murmur Abdomen/GI: Normal bowel sounds, non-tender, soft Extremities/Musculoskeletal: +Chronic venous stasis changes R>L. 2+ pitting edema. No calf tenderness Neurological/Psych: Alert, normal mood/affect, oriented x 3 Skin: Normal color, warm/dry, no rash (Marjorie Vega ., PA-C) Laboratory Results Last 24 Hours Test 10/16/17 16:20 10/16/17 16:32 10/16/17 21:12 10/17/17 06:14 Influenza Type A (RT-PCR) Neg for Influ A Influenza Type B (RT-PCR) Neg for Influ B Bedside Glucose 316 mg/dl 282 mg/dl White Blood Count 17.05 K/uL Red Blood Count 4.36 M/uL Hemoglobin 12.5 g/dL Hematocrit 38.4 % Mean Corpuscular Volume 88.1 fL Mean Corpuscular Hemoglobin 28.7 pg Mean Corpuscular Hemoglobin Concent 32.6 g/dl RDW Standard Deviation 48.4 fL RDW Coefficient of Variation 15.2 % Platelet Count 170 K/uL Mean Platelet Volume 11.7 fL Sodium Level 133 mmol/L Potassium Level 3.8 mmol/L Chloride Level 96 mmol/L Carbon Dioxide Level 28 mmol/L Anion Gap 9.0 mmol/L Blood Urea Nitrogen 24 mg/dl Creatinine 1.01 mg/dl Est Creatinine Clear Calc Drug Dose 145.9 ml/min Estimated GFR () 92.0 Estimated GFR (Non- 79.3 BUN/Creatinine Ratio 23.3 Random Glucose 239 mg/dl Calcium Level 8.8 mg/dl Test 10/17/17 07:54 10/17/17 11:19 Bedside Glucose 258 mg/dl 343 mg/dl (Marjorie Vega ., PA-C) Assessment and Plan 62 y/o male with a history of a-fib, HTN, HLD, chronic diastolic CHF, CAD, COPD , severe ALLIE w/trach, DM II, and chronic lower extremity swelling/cellulitis who presents with shortness of breath, productive cough and hemoptysis. Acute respiratory failure--improving -Admit to telemetry. Rate controlled a-fib overnight with HR 70s-90s. Leads not staying on and tele is stable, will transfer to med/surg -O2 by protocol via trach collar -Pulmonology consulted, appreciate recs: Video swallow for possible aspiration , start Zosyn -Bronchoscopy showed diffuse erythema suggestive of aspiration -Zosyn for possible aspiration, day #2 -Unable to perform video swallow due to size -Flu PCR negative but started on empiric Tamiflu, day #2 -Blood cultures NGTD -Urine legionella pending -Decrease Solu-Medrol 60 mg IV q12h -Xopenex/Atrovent nebs q6h -Continue Mucomyst nebs TID A-fib, HTN, HLD, CAD. chronic diastolic CHF--stable, a-fib rate controlled -Continue ASA, Lipitor 80 mg PO qd, Bumex 2 mg PO qd, diltiazem 120 mg PO qd, Imdur 30 mg PO qd, lisinopril 10 mg PO qd, metolazone 5 mg PO qd, Lopressor 25 mg PO BID, Xarelto 20 mg PO qd, spironolactone 25 mg PO BID COPD, severe ALLIE w/trach -Continue nebs as above, home inhalers DM II--HgbA1c 8.9 here -Continue pt's home insulin regimen (high doses Novolog/Lantus). He is very resistant to changing this regimen -Seen by clinical educator who recommends 1 unit insulin: 1 gram carb ratio and correction factor of 5 with BSG goal 120-140 to replace pre-set Novolog doses -BSGS continue to be quite elevated, tighten correction factor to 2 Chronic lower extremity edema/cellulitis -Wound care nurse consulted DVT prophylaxis -Xarelto Code Status -Level I, FULL RESUSCITATION STATUS (Marjorie Vega ., PA-C) Attending Attestation - Pt seen/examined, chart reviewed, care plan d/w PETE Vega. I agree w/ the jerez components of her documentation. "I feel better doc" breathing is much more comfortable not as fatigued today VSS no fever BSGs still high gen - looks better today trach - clean heart - irregular, HR<100 lungs - minimal wheezing b/l, good airation today abd - soft, obese ext - trace-1+ edema b/l, stasis changes b/l legs skin - no cellulitis either foot or chambers A/P: 1. COPD exacerbation - cont steroids but wean to q12h, nebs, mucomyst; s/p bronch - awaiting cx's 2. suspected aspiration pneumonia - zosyn, speech eval appreciated 3. chronic diastolic CHF - compensated 4. uncontrolled T2DM - tighten his correction factor to 2; he is typically resistant to modifying his home lantus/novolog doses and thus leave as is for now control should improve with decrease in steroids 5. clinical influenza - suspected, despite negative PCR flu - tamiflu, day #2 progressing Homer Fink MD (Homer Fink MD)
--- NOTE | 2017-10-17 16:15 | Pulmonology Progress Note ---
Pulmonary Progress Note Date of Service Oct 17, 2017. Attending Dr. Evans Subjective Patient notes his respiratory status is improving and he has had a dramatic drop in his mucus/bloody secretions Objective Patient is doing well able to sit up in bed showing no signs of accessory muscle use or respiratory insufficiency Vital signs:'s please see below Respiratory: Continue rhonchi left lower lobe but no changes noted Cardiac: S1-S2 distant heart sounds Abdomen: Bloated but no tenderness to deep palpation positive bowel sounds Extremities: 1-2+ pitting edema with chronic stasis dermatitis Assessment & Plan 62-year-old morbidly obese male with tracheostomy secondary to severe obesity hypoventilation syndrome and active sputum and hemoptysis: 1. Hemoptysis: Patient's hemoptysis is improving at this time and the bronchoscopy was nondiagnostic. I suggest in the future if the patient has recurrent hemoptysis we bring the patient to the OR switch his trachea out for a cuffed tracheostomy tube and perform general anesthesia. At that time for bronchoscopic evaluation of the upper and lower airways could be performed as well as an EGD to rule out any gastrointestinal sources of bleeding. 2. Right lower lobe nodule: This nodule does show popcorn calcification and has been seen on CT imaging 05/25/2014 as well as 05/04/2016. Per the 2017 flexure criteria no further follow-up is necessary. There is also a small calcification just medial posterior to this which suggests previous lung injury. 3. ALLIE: Patient has severe obstructive sleep apnea possibly obesity hypoventilation syndrome currently trached 4. ID: Patient's PCR assay for influenza a and B are negative and I will discontinue the patient's Tamiflu at this time. Within the future taper down antibiotics based on bronchoscopic findings. 5. ACOS: COPD/asthma: Patient is currently doing better suggest tapering down the patient's steroids from IV to oral within the next 48 hours. Signoff: At this time the pulmonary team will sign off daily rounding please contact me if the patient's clinical status changes. Data Medications: Current Inpatient Medications Medications (Trade) Dose Ordered Sig/Saige Route Start Time Stop Time Status Last Admin Dose Admin Atorvastatin Calcium (Lipitor Tab) 80 mg DAILY PO 10/16/17 09:00 11/15/17 08:59 10/17/17 08:25 80 MG Bumetanide (Bumex Tab) 2 mg QAM PO 10/16/17 09:00 11/15/17 08:59 10/17/17 08:30 2 MG Diltiazem HCl (Dilacor Xr Cap) 120 mg DAILY PO 10/16/17 09:00 11/15/17 08:59 10/17/17 08:28 120 MG Dorzolamide HCl (Trusopt 2% Oph Soln) 1 drops BID OP 10/15/17 21:00 11/14/17 20:59 10/17/17 08:24 1 DROPS Insulin Aspart (novoLOG ASPART) 70 units QDL SC 10/16/17 12:00 11/15/17 11:59 10/17/17 13:05 70 UNITS Insulin Aspart (novoLOG ASPART) 95 units QDD SC 10/16/17 17:00 11/15/17 16:59 10/16/17 17:55 95 UNITS Insulin Aspart (novoLOG ASPART) 100 units QDB SQ 10/16/17 08:00 11/15/17 07:59 10/17/17 08:54 100 UNITS Insulin Glargine (Lantus Vial) 115 units QPM SC 10/15/17 21:00 11/14/17 20:59 10/16/17 22:02 115 UNITS Insulin Glargine (Lantus Vial) 118 units QAM SC 10/16/17 09:00 11/15/17 08:59 10/17/17 08:52 118 UNITS Isosorbide Mononitrate (Imdur Ext Rel Tab) 30 mg DAILY PO 10/16/17 09:00 11/15/17 08:59 10/17/17 08:25 30 MG Latanoprost (Xalatan Oph Soln) 1 drops HS OP 10/15/17 21:00 11/14/17 20:59 10/16/17 21:42 1 DROPS Lisinopril (Zestril Tab) 10 mg DAILY PO 10/16/17 09:00 11/15/17 08:59 10/17/17 08:27 10 MG Lorazepam (Ativan Tab) 1 mg QID PRN PO 10/15/17 19:30 11/14/17 19:29 10/17/17 08:55 1 MG Magnesium Oxide (Mag-Ox Tab) 400 mg TID PO 10/15/17 21:00 11/14/17 20:59 10/17/17 14:11 400 MG Metolazone (Zaroxolyn Tab) 5 mg DAILY PO 10/16/17 09:00 11/15/17 08:59 10/17/17 08:32 5 MG Metoprolol Tartrate (Lopressor Tab) 25 mg BID PO 10/15/17 21:00 11/14/17 20:59 10/17/17 08:24 25 MG Multivitamins/ Minerals (Multivitamin W/ Minerals Tab) 1 tab DAILY PO 10/16/17 09:00 11/15/17 08:59 10/17/17 08:24 1 TAB Potassium Chloride (Klor-Con Tab) 60 meq BID PO 10/15/17 21:00 11/14/17 20:59 10/17/17 08:31 60 MEQ Sodium Chloride (Sodium Chloride Tab) 1 gm DAILY PO 10/16/17 09:00 11/15/17 08:59 10/17/17 08:32 1 GM Spironolactone (Aldactone Tab) 25 mg BID17 PO 10/16/17 09:00 11/15/17 08:59 10/17/17 08:28 25 MG Tramadol HCl (Ultram Tab) 50 mg Q8H PRN PO 10/15/17 19:30 11/14/17 19:29 10/16/17 21:58 50 MG Bacitracin (Bacitracin Oint) 1 appln DAILY TOP 10/16/17 09:00 11/15/17 08:59 10/17/17 08:44 1 APPLN Miscellaneous Information (Order Awaiting Action) 1 ea QS N/A 10/16/17 00:00 11/15/17 00:00 Guaifenesin (Mucinex Contr Rel Tab) 1,200 mg BID PO 10/15/17 21:00 11/14/17 20:59 10/17/17 08:55 1,200 MG Acetaminophen (Tylenol Tab) 650 mg Q4H PRN PO 10/15/17 19:30 11/14/17 19:29 Al Hydrox/Mg Hydrox/Simethicone (Maalox Max Susp) 15 ml Q4H PRN PO 10/15/17 19:30 11/14/17 19:29 Magnesium Hydroxide (Milk Of Magnesia Susp) 30 ml Q12H PRN PO 10/15/17 19:30 11/14/17 19:29 Zolpidem Tartrate (Ambien Tab) 5 mg HSZ PRN PO 10/15/17 19:30 11/14/17 19:29 Zolpidem Tartrate (Ambien Tab) 5 mg HSZ PRN PO 10/15/17 19:30 11/14/17 19:29 Ondansetron HCl (Zofran Inj) 4 mg Q6H PRN IV 10/15/17 19:30 11/14/17 19:29 Nitroglycerin (Nitrostat Tab) 0.4 mg UD PRN SL 10/15/17 19:30 11/14/17 19:29 Polyethylene (Miralax Powder Packet) 17 gm DAILY PRN PO 10/15/17 19:30 11/14/17 19:29 Glucose (Glucose 40% Gel) 15-30 GRAMS 15 GRAMS... UD PRN PO 10/15/17 19:30 11/14/17 19:29 Glucose (Glucose Chew Tab) 4-8 Tablets 4 Tabl... UD PRN PO 10/15/17 19:30 11/14/17 19:29 Dextrose (Dextrose 50% 50ML Syringe) 25-50ML OF 50% DW IV FOR... UD PRN IV 10/15/17 19:30 11/14/17 19:29 Glucagon (Glucagon Inj) 1 mg UD PRN SQ 10/15/17 19:30 11/14/17 19:29 Aspirin (Ecotrin Tab) 81 mg DAILY PO 10/16/17 09:00 11/15/17 08:59 10/17/17 08:29 81 MG Rivaroxaban (Xarelto Tab) 20 mg DAILY PO 10/16/17 09:00 11/15/17 08:59 10/17/17 08:31 20 MG Ipratropium [place] (Atrovent 0.02% 0.5MG/2.5ML Neb) 0.5 mg Q6R INH 10/15/17 21:00 11/14/17 20:59 10/17/17 14:25 0.5 MG Levalbuterol (Xopenex 1.25MG/ 0.5ML Neb) 1.25 mg Q6R INH 10/15/17 21:00 11/14/17 20:59 10/17/17 14:25 1.25 MG Non-Formulary Medication (Beclomethasone Dipropionate (N (Qnasl)) 1 spry DAILY N/A 10/16/17 09:00 11/15/17 08:59 10/16/17 10:28 1 SPRY Ipratropium [place] (Atrovent 0.02% 0.5MG/2.5ML Neb) 0.5 mg Q2H PRN INH 10/16/17 00:45 11/15/17 00:44 Levalbuterol (Xopenex 1.25MG/ 0.5ML Neb) 1.25 mg Q2H PRN INH 10/16/17 00:45 11/15/17 00:44 Miconazole Nitrate (Desenex Powder) 1 appln BID PRN EXT 10/16/17 09:15 11/15/17 09:14 10/16/17 12:40 1 APPLN Silver Nitrate/ Potassium Nitrate (Silver Nitrate Applicators) 1 appl ONE PRN EXT 10/16/17 09:30 11/15/17 09:29 Miscellaneous Information (Consult) 1 ea UD PRN N/A 10/16/17 09:45 11/15/17 09:44 Piperacillin Sod/ Tazobactam Sod 4.5 gm/Dextrose 120 ml @ 30 mls/hr Q8H IV 10/16/17 16:00 10/23/17 15:59 10/17/17 08:18 30 MLS/HR Insulin Aspart (novoLOG ASPART) SLIDING SCALE If C... ACHS SC 10/16/17 16:30 11/15/17 00:00 10/17/17 13:04 102 UNITS Acetylcysteine (Mucomyst 20% Inh Soln) 3 ml TIDR INH 10/16/17 21:00 11/15/17 20:59 10/17/17 14:25 3 ML Oseltamivir Phosphate (Tamiflu Cap) 75 mg BID PO 10/17/17 08:00 10/22/17 08:59 10/17/17 08:26 75 MG Methylprednisolone Sodium Succinate 60 mg/Syringe 0.96 ml @ 1.5 mls/min Q12H IV 10/17/17 18:00 11/15/17 00:00 I & O: 24-Hour Column 10/18/17 08:00 Intake Total 695 ml Output Total 1400 ml Balance -705 ml Vital Signs: Date Time Temp Pulse Resp B/P (MAP) Pulse Ox O2 Delivery O2 Flow Rate FiO2 10/17/17 15:35 36.4 91 20 144/73 (96) 97 10/17/17 14:26 81 22 96 Trach Collar 8.0 40 10/17/17 08:18 36.7 75 20 126/67 (86) 97 10/17/17 07:25 Trach Collar 8.0 30 10/17/17 07:20 75 22 97 Trach Collar 8.0 40 10/17/17 02:05 88 22 96 Trach Collar 8.0 40 10/17/17 00:04 36.6 72 19 114/51 (72) 97 Trach Collar 8.0 10/17/17 00:00 Trach Collar 8.0 30 10/16/17 20:19 92 22 96 Trach Collar 8.0 40 10/16/17 20:00 Trach Collar 8.0 30 10/16/17 16:07 36.7 94 22 132/69 (90) 99 Nasal Cannula 6.0 10/16/17 16:02 96 Trach Collar 8.0 30 Laboratory Results: Last 24 Hours Test 10/16/17 16:20 10/16/17 16:32 10/16/17 21:12 10/17/17 06:14 Influenza Type A (RT-PCR) Neg for Influ A Influenza Type B (RT-PCR) Neg for Influ B Bedside Glucose 316 mg/dl 282 mg/dl White Blood Count 17.05 K/uL Red Blood Count 4.36 M/uL Hemoglobin 12.5 g/dL Hematocrit 38.4 % Mean Corpuscular Volume 88.1 fL Mean Corpuscular Hemoglobin 28.7 pg Mean Corpuscular Hemoglobin Concent 32.6 g/dl RDW Standard Deviation 48.4 fL RDW Coefficient of Variation 15.2 % Platelet Count 170 K/uL Mean Platelet Volume 11.7 fL Sodium Level 133 mmol/L Potassium Level 3.8 mmol/L Chloride Level 96 mmol/L Carbon Dioxide Level 28 mmol/L Anion Gap 9.0 mmol/L Blood Urea Nitrogen 24 mg/dl Creatinine 1.01 mg/dl Est Creatinine Clear Calc Drug Dose 145.9 ml/min Estimated GFR () 92.0 Estimated GFR (Non- 79.3 BUN/Creatinine Ratio 23.3 Random Glucose 239 mg/dl Calcium Level 8.8 mg/dl Test 10/17/17 07:54 10/17/17 11:19 Bedside Glucose 258 mg/dl 343 mg/dl
[2017-10-17] MEDS: LATANOPROST 0.005% OP SOLN 2.5 ML BTL OP SCH (20:40)
[2017-10-18] VITALS (10 sets, daily range): BP systolic 120–168; BP diastolic 65–76; PULSE 66–88; TEMP 36.4–36.7; O2SAT 92–99
[2017-10-18] MEDS: ACETYLCYSTEINE 20% INHAL SOLN ***DISPENSED BY RESP. INH SCH ×4 (00:30→19:06)
[2017-10-18] MEDS: PIPERACILL/TAZOBAC IV 4.5 GM in DEXTROSE 5% 100ML IV SCH ×3 (00:45→15:29)
[2017-10-18] MEDS: LORAZEPAM 1 MG TAB PO PRN ×2 (00:53→08:04)
[2017-10-18] MEDS: IPRATROPIUM BROMIDE NEB SOLN 0.02% 2.5 ML VIAL INH SCH ×4 (02:04→19:06)
[2017-10-18] MEDS: LEVALBUTEROL 1.25MG/0.5ML NEB INH SCH ×4 (02:04→19:06)
[2017-10-18] MEDS: METHYLPREDNISOLONE IV 60 MG in SYRINGE 0 ML IV SCH (06:06)
[2017-10-18] MEDS: CLARINEX~ORDER AWAITING ACTION SCH ×4 (07:37→23:54)
[2017-10-18 07:45] LABS: HEMATOCRIT 38.2 % (42-52); HEMOGLOBIN 12.7 g/dL (14.0-18.0); MEAN CELL VOLUME 88.2 fL (80-100); MEAN CORPUSCULAR HEMOGLOBIN 29.3 pg (25-34); MEAN CORPUSCULAR HGB CONC 33.2 g/dl (32-36); MEAN PLATELET VOLUME 11.4 fL (7.4-10.4); PLATELET COUNT 171 K/uL (130-400); RED CELL DISTRIBUTION WIDTH CV 15.3 % (11.5-14.5); WHITE BLOOD COUNT 13.45 K/uL (4.8-10.8)
[2017-10-18] MEDS: INSULIN ASPART 100 UNITS/ML VIAL SC SCH ×6 (07:55→20:52)
[2017-10-18] MEDS: SODIUM CHLORIDE 1 GM TAB PO SCH (07:56)
[2017-10-18] MEDS: DILTIAZEM HCL 120 MG ER CAP PO SCH (07:56)
[2017-10-18] MEDS: ATORVASTATIN 40 MG TAB PO SCH (07:56)
[2017-10-18] MEDS: GUAIFENESIN 600 MG TABCR PO SCH ×2 (07:56→20:02)
[2017-10-18] MEDS: CEROVITE ADV FORMULA TAB PO SCH (07:56)
[2017-10-18] MEDS: MAGNESIUM OXIDE 400 MG TAB PO SCH ×3 (07:56→20:01)
[2017-10-18] MEDS: ISOSORBIDE MONONITRATE 30 MG TABCR PO SCH (07:57)
[2017-10-18] MEDS: METOPROLOL TARTRATE 25 MG TAB PO SCH ×2 (07:57→20:00)
[2017-10-18] MEDS: ASPIRIN 81 MG ECTAB PO SCH (07:57)
[2017-10-18] MEDS: LISINOPRIL 10 MG TAB PO SCH (07:57)
[2017-10-18] MEDS: BUMETANIDE 1 MG TAB PO SCH (07:57)
[2017-10-18] MEDS: DORZOLAMIDE HCL 2% OPH SOLN 10 ML BTL OP SCH ×2 (07:57→20:01)
[2017-10-18] MEDS: POTASSIUM CHLORIDE 20 MEQ TABCR PO SCH ×2 (07:57→20:01)
[2017-10-18] MEDS: RIVAROXABAN 10 MG TAB PO SCH (07:57)
[2017-10-18] MEDS: BECLOMETHASONE DIPROPIONATE SCH (07:58)
[2017-10-18] MEDS: BACITRACIN OINT 15 GM TUBE TOP SCH (08:00)
[2017-10-18 08:02] LABS: CALCIUM 8.8 mg/dl (8.5-10.1); CREATININE 0.96 mg/dl (0.60-1.40); POTASSIUM 3.6 mmol/L (3.5-5.1)
[2017-10-18] MEDS: TRAMADOL HCL 50 MG TAB PO PRN (08:05)
[2017-10-18] MEDS: METOLAZONE 5 MG TAB PO SCH (08:06)
[2017-10-18] MEDS: INSULIN ASPART 100 UNITS/ML VIAL SQ SCH (08:10)
[2017-10-18] MEDS: INSULIN GLARGINE SC SCH ×2 (08:11→20:54)
[2017-10-18] MEDS: SPIRONOLACTONE 25 MG TAB PO SCH ×2 (10:26→17:43)
[2017-10-18] MEDS ORDERED: POTASSIUM CHLORIDE 20 MEQ TABCR PO STA (17:33)
[2017-10-18] MEDS ORDERED: BUMETANIDE 1 MG TAB PO ONE (17:45)
[2017-10-18] MEDS: METHYLPREDNISOLONE IV 40 MG in SYRINGE 0 ML IV SCH (18:23)
[2017-10-18] MEDS: LATANOPROST 0.005% OP SOLN 2.5 ML BTL OP SCH (20:01)
--- NOTE | 2017-10-18 21:22 | Progress Note ---
Subjective Date of Service: Oct 18, 2017. Subjective Pt evaluation today including: conversation w/ patient, physical exam, chart review, lab review, review of inpatient medication list Pain: denies PO Intake: eating fine Voiding: no voiding problems patient "doesn't feel as good as yesterday" he spoke alot today about his stressors at home with his children he also discussed his depression with me; he reports the last antidepressant "made him feel worse" and that he is not interested in every trying another antidepressant he cannot afford counseling and does not go to denominational thus pastoral counseling is not an option either glycemic control improved today reports he is up at least 30 pounds from baseline Problem List Medical Problems: (1) Acute bronchitis Status: Acute (2) Atrial fibrillation with rapid ventricular response Status: Acute (3) Back pain Status: Acute (4) Cellulitis Status: Acute (5) Cellulitis of right lower extremity Status: Acute (6) Congestive heart failure Status: Acute (7) Dyspnea Status: Acute (8) Failure of outpatient treatment Status: Acute (9) Hyperglycemia Status: Acute (10) Pneumonia Status: Acute (11) Pneumonia Status: Acute (12) Pneumonia Status: Acute (13) Respiratory distress Status: Acute (14) Respiratory failure Status: Acute (15) Shortness of breath Status: Acute (16) Tracheitis Status: Acute (17) Weight gain Status: Acute Review of Systems Constitutional: No fever Respiratory: + cough, + dyspnea on exertion, No dyspnea at rest, No hemoptysis Cardiac: No chest pain Abdomen: No pain Objective Vital Signs Date Time Temp Pulse Resp B/P (MAP) Pulse Ox O2 Delivery O2 Flow Rate FiO2 10/18/17 19:08 80 20 99 Trach Collar 8.0 40 10/18/17 16:00 Trach Collar 8.0 40 10/18/17 15:30 36.6 66 20 120/65 (83) 98 10/18/17 14:41 84 22 97 Trach Collar 8.0 40 10/18/17 08:00 97 Trach Collar 8.0 40 10/18/17 07:32 36.4 82 16 168/76 (106) 97 Trach Collar 10/18/17 07:04 86 22 92 Room Air 10/18/17 02:04 84 22 99 Trach Collar 8.0 40 10/18/17 00:31 36.7 88 20 133/71 (91) 97 Trach Collar 10/18/17 00:30 98 Trach Collar 8.0 40 Physical Exam General Appearance: no apparent distress, + obese ENT: pharynx normal Neck: no JVD, + pertinent finding (trach clean) Respiratory/Chest: no respiratory distress, no accessory muscle use, + pertinent finding (wheezing actually is much better; airation is fair/good; slight crackles bases) Cardiovascular: no gallop, no murmur, + irregularly irregular Abdomen: normal bowel sounds, non tender, soft, no organomegaly Extremities: + pedal edema (right foot/leg, about 1+; left leg trace) Neurologic/Psychiatric: alert, oriented x 3, + depressed affect Skin: + pertinent finding (stasis changes - severe - right leg; xerosis both feet; superficial ulceration right anterior chambers w/ optifoam in place) Laboratory Results Last 24 Hours Test 10/18/17 07:01 10/18/17 07:28 10/18/17 11:29 10/18/17 16:19 White Blood Count 13.45 K/uL Red Blood Count 4.33 M/uL Hemoglobin 12.7 g/dL Hematocrit 38.2 % Mean Corpuscular Volume 88.2 fL Mean Corpuscular Hemoglobin 29.3 pg Mean Corpuscular Hemoglobin Concent 33.2 g/dl RDW Standard Deviation 49.0 fL RDW Coefficient of Variation 15.3 % Platelet Count 171 K/uL Mean Platelet Volume 11.4 fL Sodium Level 136 mmol/L Potassium Level 3.6 mmol/L Chloride Level 98 mmol/L Carbon Dioxide Level 32 mmol/L Anion Gap 7.0 mmol/L Blood Urea Nitrogen 27 mg/dl Creatinine 0.96 mg/dl Est Creatinine Clear Calc Drug Dose 153.5 ml/min Estimated GFR () 97.8 Estimated GFR (Non- 84.4 BUN/Creatinine Ratio 27.9 Random Glucose 82 mg/dl Calcium Level 8.8 mg/dl Bedside Glucose 87 mg/dl 284 mg/dl 163 mg/dl Test 10/18/17 20:16 Bedside Glucose 131 mg/dl Assessment and Plan 62yo male - 1. COPD exacerbation - cont steroids but wean to 40mg IV q12h of solumedrol; cont nebs, mucomyst; s/p bronch - awaiting cx's but thus far negative. 2. suspected aspiration pneumonia - zosyn, speech eval appreciated - no overt signs of aspiration, however; day # 3 of abx. 3. chronic diastolic CHF - suspect some element of acute decompensation although he is diuresing nicely with his home triple diuretics (metazolone, aldactone, bumex). Will give an additional bumex tonight with his evening aldactone. BMP in am. Daily weights on standing scale. 4. uncontrolled T2DM - improved with tightening his correction factor to 2; he is typically resistant to modifying his home lantus/novolog doses and thus we have left his lantus & novolog fixed amounts alone. 5. clinical influenza - suspected, despite negative PCR flu - tamiflu, day #3/ . 6. depression - offered support today; encouraged him to think about another antidepressant trial; not interested in counseling. 7. morbid obesity with BMI 65 8. a fib - rates controlled with AV denise agents; cont xarelto. 9. CAD - no ischemic symptoms at this time; cont asa, statin, BB, etc. 10. HTN - BPs acceptable on BB, BRUNO, etc. 11. hyperlipidemia - statin agent. 12. severe ALLIE - s/p trach placement years ago. progressing slowly dispo - home Continued [facility] stay due to: multiple IV medications needed Discharge planning: home
[2017-10-19] VITALS (8 sets, daily range): BP systolic 108–142; BP diastolic 55–82; PULSE 68–93; TEMP 36.6–36.7; O2SAT 96–99
[2017-10-19] MEDS: PIPERACILL/TAZOBAC IV 4.5 GM in DEXTROSE 5% 100ML IV SCH ×3 (00:29→18:50)
[2017-10-19] MEDS: LORAZEPAM 1 MG TAB PO PRN ×2 (00:30→14:13)
[2017-10-19] MEDS: TRAMADOL HCL 50 MG TAB PO PRN (00:30)
[2017-10-19] MEDS: IPRATROPIUM BROMIDE NEB SOLN 0.02% 2.5 ML VIAL INH SCH ×4 (01:46→19:20)
[2017-10-19] MEDS: LEVALBUTEROL 1.25MG/0.5ML NEB INH SCH ×4 (01:46→19:20)
[2017-10-19] MEDS ORDERED: NURSING DECISION MEDICATION ORDER SCH (05:45)
[2017-10-19] MEDS: METHYLPREDNISOLONE IV 40 MG in SYRINGE 0 ML IV SCH ×2 (06:20→18:50)
[2017-10-19] MEDS: ACETYLCYSTEINE 20% INHAL SOLN ***DISPENSED BY RESP. INH SCH ×3 (07:04→19:20)
[2017-10-19] MEDS: CLARINEX~ORDER AWAITING ACTION SCH ×2 (08:00→15:13)
[2017-10-19] MEDS: LISINOPRIL 10 MG TAB PO SCH (08:24)
[2017-10-19] MEDS: ASPIRIN 81 MG ECTAB PO SCH (08:24)
[2017-10-19] MEDS: SODIUM CHLORIDE 1 GM TAB PO SCH (08:24)
[2017-10-19] MEDS: SPIRONOLACTONE 25 MG TAB PO SCH ×2 (08:24→17:00)
[2017-10-19] MEDS: BUMETANIDE 1 MG TAB PO SCH (08:25)
[2017-10-19] MEDS: MAGNESIUM OXIDE 400 MG TAB PO SCH ×3 (08:25→20:17)
[2017-10-19] MEDS: RIVAROXABAN 10 MG TAB PO SCH (08:25)
[2017-10-19] MEDS: ISOSORBIDE MONONITRATE 30 MG TABCR PO SCH (08:25)
[2017-10-19] MEDS: GUAIFENESIN 600 MG TABCR PO SCH ×2 (08:25→20:16)
[2017-10-19] MEDS: METOLAZONE 5 MG TAB PO SCH (08:25)
[2017-10-19] MEDS: METOPROLOL TARTRATE 25 MG TAB PO SCH ×2 (08:25→20:17)
[2017-10-19] MEDS: POTASSIUM CHLORIDE 20 MEQ TABCR PO SCH ×2 (08:26→20:17)
[2017-10-19] MEDS: CEROVITE ADV FORMULA TAB PO SCH (08:26)
[2017-10-19] MEDS: ATORVASTATIN 40 MG TAB PO SCH (08:26)
[2017-10-19] MEDS: DILTIAZEM HCL 120 MG ER CAP PO SCH (08:26)
[2017-10-19] MEDS: BECLOMETHASONE DIPROPIONATE SCH (08:26)
[2017-10-19] MEDS: DORZOLAMIDE HCL 2% OPH SOLN 10 ML BTL OP SCH ×2 (08:27→20:16)
[2017-10-19] MEDS: INSULIN GLARGINE SC SCH ×2 (08:34→20:25)
[2017-10-19] MEDS: INSULIN ASPART 100 UNITS/ML VIAL SQ SCH (08:35)
[2017-10-19] MEDS: INSULIN ASPART 100 UNITS/ML VIAL SC SCH ×6 (08:35→20:21)
[2017-10-19] MEDS: BACITRACIN OINT 15 GM TUBE TOP SCH (08:38)
[2017-10-19 08:58] LABS: CALCIUM 8.7 mg/dl (8.5-10.1); CREATININE 1.03 mg/dl (0.60-1.40); POTASSIUM 3.6 mmol/L (3.5-5.1)
[2017-10-19] MEDS: LATANOPROST 0.005% OP SOLN 2.5 ML BTL OP SCH (20:16)
[2017-10-20] VITALS (7 sets, daily range): BP systolic 137–157; BP diastolic 65–85; PULSE 60–82; TEMP 36.4–36.7; O2SAT 95–98
--- NOTE | 2017-10-20 00:33 | Hospitalist Progress Note ---
Hospitalist Progress Note Date of Service Oct 19, 2017. Subjective Pt evaluation today including: conversation w/ patient, conversation w/ sediment remediation consultant (PULMONOLOGY) Voiding: no voiding problems Patient reports he is definitely feeling better today than yesterday, less short of breath, still coughing up some sputum occasionally. Has no other concerns. All Other Systems: Reviewed and Negative Objective Vital Signs Date Time Temp Pulse Resp B/P (MAP) Pulse Ox O2 Delivery O2 Flow Rate FiO2 10/19/17 14:51 36.6 89 20 142/82 (102) 97 10/19/17 14:09 93 20 97 Trach Collar 8.0 30 10/19/17 08:00 96 Trach Collar 8.0 35 10/19/17 07:37 36.7 69 20 108/55 (72) 96 10/19/17 07:05 68 20 98 Trach Collar 8.0 30 10/19/17 01:48 75 18 98 Trach Collar 8.0 30 10/19/17 00:30 99 Trach Collar 8.0 40 10/18/17 23:04 36.6 83 22 122/67 (85) 97 Trach Collar 8.0 40 80 10/18/17 19:08 80 20 99 Trach Collar 8.0 40 10/18/17 16:00 Trach Collar 8.0 40 10/18/17 15:30 36.6 66 20 120/65 (83) 98 Physical Exam General Appearance: no apparent distress, + obese (Morbidly obese, sitting in the bed) Eyes: normal inspection, sclerae normal ENT: hearing grossly normal Neck: trachea midline (With trach collar in place) Respiratory/Chest: no respiratory distress, no accessory muscle use, + decreased breath sounds (Diminished throughout but sound fairly clear) Cardiovascular: no murmur, + irregularly irregular (With normal rate) Abdomen: normal bowel sounds, non tender, soft (And morbidly obese) Extremities: + swelling (Right leg with chronic woody pitting edema and mild erythema with multiple blisters and crusted over skin, left leg with trace edema ) Neurologic/Psychiatric: alert, normal mood/affect, oriented x 3 Skin: + pertinent finding (Diffuse ichthyosis and seborrhea) Laboratory Results Last 24 Hours Test 10/18/17 16:19 10/18/17 20:16 10/19/17 07:20 10/19/17 08:31 Bedside Glucose 163 mg/dl 131 mg/dl 155 mg/dl Sodium Level 133 mmol/L Potassium Level 3.6 mmol/L Chloride Level 97 mmol/L Carbon Dioxide Level 32 mmol/L Anion Gap 4.0 mmol/L Blood Urea Nitrogen 27 mg/dl Creatinine 1.03 mg/dl Est Creatinine Clear Calc Drug Dose 182.1 ml/min Estimated GFR () 89.8 Estimated GFR (Non- 77.5 BUN/Creatinine Ratio 26.5 Random Glucose 98 mg/dl Calcium Level 8.7 mg/dl Magnesium Level 2.3 mg/dl Test 10/19/17 11:20 10/19/17 14:11 Bedside Glucose 207 mg/dl 157 mg/dl Assessment and Plan 62 y/o male with a history of a-fib, HTN, HLD, chronic diastolic CHF, CAD, COPD , severe ALLIE w/trach, DM II, and chronic lower extremity swelling/cellulitis who presents with shortness of breath, productive cough and hemoptysis. 1. COPD exacerbation/Acute on chronic hypoxic respiratory failure/Scant hemoptysis -all much improved. - cont steroids and wean down; cont nebs, mucomyst; s/p bronch - awaiting cx's but thus far negative. -f/u urine Legionella antigen -follow BCxs -Appreciate Pulmonary consult 2. suspected aspiration pneumonia - zosyn, speech eval appreciated - no overt signs of aspiration, however; day # 4 of abx and switch to po abx in 1-2 days. Pulmonology consulted, appreciate recs: recommended Video swallow for possible aspiration but could not be done due to his size -Bronchoscopy showed diffuse erythema suggestive of aspiration 3. chronic diastolic CHF - suspect some element of acute decompensation although he is diuresing nicely with his home triple diuretics (metazolone, aldactone, bumex). - BMP in am. Daily weights on standing scale. -I/Os 4. uncontrolled T2DM - now improved with tightening his correction factor to 2 ; he is typically resistant to modifying his home lantus/novolog doses and thus we have left his lantus & novolog fixed amounts alone. 5. clinical influenza - suspected on admission, despite negative PCR flu - tamiflu discontinued after 3 days 6. depression - considering antidepressant trial; not interested in counseling. 7. morbid obesity with BMI 65 8. a fib - rates controlled with AV denise agents; cont xarelto. 9. CAD - no ischemic symptoms at this time; cont asa, statin, BB, etc. 10. HTN - BPs acceptable on BB, BRUNO, etc. 11. hyperlipidemia - statin agent. 12. severe ALLIE - s/p trach placement years ago. Prophylaxis-Xarelto progressing slowly dispo - home in 1-2 days after more diuresis and improvement in pulm status FULL CODE
[2017-10-20] MEDS: LEVALBUTEROL 1.25MG/0.5ML NEB INH SCH ×4 (01:52→19:49)
[2017-10-20] MEDS: IPRATROPIUM BROMIDE NEB SOLN 0.02% 2.5 ML VIAL INH SCH ×4 (01:52→19:49)
[2017-10-20] MEDS: PIPERACILL/TAZOBAC IV 4.5 GM in DEXTROSE 5% 100ML IV SCH ×4 (02:22→17:52)
[2017-10-20] MEDS: METHYLPREDNISOLONE IV 40 MG in SYRINGE 0 ML IV SCH ×2 (05:46→17:51)
[2017-10-20] MEDS: INSULIN ASPART 100 UNITS/ML VIAL SC SCH ×6 (06:30→20:03)
[2017-10-20] MEDS: CLARINEX~ORDER AWAITING ACTION SCH ×4 (07:03→23:33)
[2017-10-20 07:07] LABS: HEMATOCRIT 38.4 % (42-52); HEMOGLOBIN 12.8 g/dL (14.0-18.0); IG# 0.06 K/uL (0.00-0.02); LYMPH ABS # 0.85 K/uL (1.2-3.4); MEAN CELL VOLUME 88.1 fL (80-100); MEAN CORPUSCULAR HEMOGLOBIN 29.4 pg (25-34); MEAN CORPUSCULAR HGB CONC 33.3 g/dl (32-36); MEAN PLATELET VOLUME 11.9 fL (7.4-10.4); MONO ABS # 1.17 K/uL (0.11-0.59); NEUT % 80.4 %; NEUT ABS # 8.59 K/uL (1.4-6.5); PLATELET COUNT 168 K/uL (130-400); RED CELL DISTRIBUTION WIDTH SD 48.3 fL (36.4-46.3); WHITE BLOOD COUNT 10.67 K/uL (4.8-10.8)
[2017-10-20] MEDS: ACETYLCYSTEINE 20% INHAL SOLN ***DISPENSED BY RESP. INH SCH ×3 (07:25→19:49)
[2017-10-20 07:34] LABS: CALCIUM 8.6 mg/dl (8.5-10.1); CREATININE 1.03 mg/dl (0.60-1.40)
[2017-10-20] MEDS: ASPIRIN 81 MG ECTAB PO SCH (07:51)
[2017-10-20] MEDS: BECLOMETHASONE DIPROPIONATE SCH (07:51)
[2017-10-20] MEDS: DORZOLAMIDE HCL 2% OPH SOLN 10 ML BTL OP SCH ×2 (07:51→20:06)
[2017-10-20] MEDS: LISINOPRIL 10 MG TAB PO SCH (07:52)
[2017-10-20] MEDS: ATORVASTATIN 40 MG TAB PO SCH (07:52)
[2017-10-20] MEDS: POTASSIUM CHLORIDE 20 MEQ TABCR PO SCH ×2 (07:52→20:06)
[2017-10-20] MEDS: METOLAZONE 5 MG TAB PO SCH (07:52)
[2017-10-20] MEDS: SPIRONOLACTONE 25 MG TAB PO SCH ×2 (07:52→17:50)
[2017-10-20] MEDS: ISOSORBIDE MONONITRATE 30 MG TABCR PO SCH (07:53)
[2017-10-20] MEDS: SODIUM CHLORIDE 1 GM TAB PO SCH (07:53)
[2017-10-20] MEDS: MAGNESIUM OXIDE 400 MG TAB PO SCH ×3 (07:53→20:06)
[2017-10-20] MEDS: GUAIFENESIN 600 MG TABCR PO SCH ×2 (07:53→20:06)
[2017-10-20] MEDS: BUMETANIDE 1 MG TAB PO SCH (07:53)
[2017-10-20] MEDS: METOPROLOL TARTRATE 25 MG TAB PO SCH ×2 (07:54→20:05)
[2017-10-20] MEDS: DILTIAZEM HCL 120 MG ER CAP PO SCH (07:54)
[2017-10-20] MEDS: RIVAROXABAN 10 MG TAB PO SCH (07:54)
[2017-10-20] MEDS: CEROVITE ADV FORMULA TAB PO SCH (07:54)
[2017-10-20] MEDS: BACITRACIN OINT 15 GM TUBE TOP SCH (07:55)
[2017-10-20] MEDS: INSULIN ASPART 100 UNITS/ML VIAL SQ SCH (08:32)
[2017-10-20] MEDS: INSULIN GLARGINE SC SCH ×2 (08:33→20:13)
[2017-10-20 08:45] LABS: POTASSIUM 4.2 mmol/L (3.5-5.1)
--- NOTE | 2017-10-20 17:11 | Hospitalist Progress Note ---
Hospitalist Progress Note Date of Service Oct 20, 2017. (Wendi Mckeon ., JOHNNY) Subjective Pt evaluation today including: conversation w/ patient, physical exam, chart review, lab review, conversation w/ service delivery consultant Voiding: no voiding problems Mr. Tim feels better but not back at his baseline. He is still somewhat sob. He feels his lower extremity edema has improved. ROS Constitutional: no chills, aches, sweats or fever Respiratory: no cough, sputum, or wheezing Cardiac: no chest pain, palpitations, edema, orthopnea or lightheadedness GI: no abdominal pain, nausea, vomiting, diarrhea or constipation : no dysuria or hesitancy Extremities: no joint pain or weakness Skin: no rash All other systems reviewed and negative (Wendi Mckeon CRNP) Medications Medications Administered Medications (Trade) Dose Ordered Sig/Saige Route Start Time Stop Time Status Last Admin Dose Admin Albuterol/ Ipratropium (Duoneb) 12 ml ONE ONCE INH 10/15/17 15:30 10/15/17 15:31 DC 10/15/17 15:50 12 ML Methylprednisolone Sodium Succinate (Solu-Medrol IV) 125 mg NOW STAT IV 10/15/17 15:25 10/15/17 15:27 DC 10/15/17 17:10 125 MG Atorvastatin Calcium (Lipitor Tab) 80 mg DAILY PO 10/16/17 09:00 11/15/17 08:59 10/20/17 07:52 80 MG Bumetanide (Bumex Tab) 2 mg QAM PO 10/16/17 09:00 11/15/17 08:59 10/20/17 07:53 2 MG Diltiazem HCl (Dilacor Xr Cap) 120 mg DAILY PO 10/16/17 09:00 11/15/17 08:59 10/20/17 07:54 120 MG Dorzolamide HCl (Trusopt 2% Oph Soln) 1 drops BID OP 10/15/17 21:00 11/14/17 20:59 10/20/17 07:51 1 DROPS Insulin Aspart (novoLOG ASPART) 70 units QDL SC 10/16/17 12:00 11/15/17 11:59 10/20/17 13:08 70 UNITS Insulin Aspart (novoLOG ASPART) 95 units QDD SC 10/16/17 17:00 11/15/17 16:59 10/18/17 17:47 95 UNITS Insulin Aspart (novoLOG ASPART) 100 units QDB SQ 10/16/17 08:00 11/15/17 07:59 10/20/17 08:32 100 UNITS Insulin Glargine (Lantus Vial) 115 units QPM SC 10/15/17 21:00 11/14/17 20:59 10/19/17 20:25 57 UNITS Insulin Glargine (Lantus Vial) 118 units QAM SC 10/16/17 09:00 11/15/17 08:59 10/20/17 08:33 118 UNITS Isosorbide Mononitrate (Imdur Ext Rel Tab) 30 mg DAILY PO 10/16/17 09:00 11/15/17 08:59 10/20/17 07:53 30 MG Latanoprost (Xalatan Oph Soln) 1 drops HS OP 10/15/17 21:00 11/14/17 20:59 10/19/17 20:16 1 DROPS Lisinopril (Zestril Tab) 10 mg DAILY PO 10/16/17 09:00 11/15/17 08:59 10/20/17 07:52 10 MG Lorazepam (Ativan Tab) 1 mg QID PRN PO 10/15/17 19:30 11/14/17 19:29 10/19/17 14:13 1 MG Magnesium Oxide (Mag-Ox Tab) 400 mg TID PO 10/15/17 21:00 11/14/17 20:59 10/20/17 13:05 400 MG Metolazone (Zaroxolyn Tab) 5 mg DAILY PO 10/16/17 09:00 11/15/17 08:59 10/20/17 07:52 5 MG Metoprolol Tartrate (Lopressor Tab) 25 mg BID PO 10/15/17 21:00 11/14/17 20:59 10/20/17 07:54 25 MG Multivitamins/ Minerals (Multivitamin W/ Minerals Tab) 1 tab DAILY PO 10/16/17 09:00 11/15/17 08:59 10/20/17 07:54 1 TAB Potassium Chloride (Klor-Con Tab) 60 meq BID PO 10/15/17 21:00 11/14/17 20:59 10/20/17 07:52 60 MEQ Sodium Chloride (Sodium Chloride Tab) 1 gm DAILY PO 10/16/17 09:00 11/15/17 08:59 10/20/17 07:53 1 GM Spironolactone (Aldactone Tab) 25 mg BID17 PO 10/16/17 09:00 11/15/17 08:59 10/20/17 07:52 25 MG Tramadol HCl (Ultram Tab) 50 mg Q8H PRN PO 10/15/17 19:30 11/14/17 19:29 10/19/17 00:30 50 MG Bacitracin (Bacitracin Oint) 1 appln DAILY TOP 10/16/17 09:00 11/15/17 08:59 10/17/17 08:44 1 APPLN Guaifenesin (Mucinex Contr Rel Tab) 1,200 mg BID PO 10/15/17 21:00 11/14/17 20:59 10/20/17 07:53 1,200 MG Aspirin (Ecotrin Tab) 81 mg DAILY PO 10/16/17 09:00 11/15/17 08:59 10/20/17 07:51 81 MG Rivaroxaban (Xarelto Tab) 20 mg DAILY PO 10/16/17 09:00 11/15/17 08:59 10/20/17 07:54 20 MG Methylprednisolone Sodium Succinate 60 mg/Syringe 0.96 ml @ 1.5 mls/min Q6H IV 10/16/17 00:00 10/17/17 09:44 DC 10/17/17 06:05 1.5 MLS/MIN Ipratropium Echo (Atrovent 0.02% 0.5MG/2.5ML Neb) 0.5 mg Q6R INH 10/15/17 21:00 11/14/17 20:59 10/20/17 14:08 0.5 MG Levalbuterol (Xopenex 1.25MG/ 0.5ML Neb) 1.25 mg Q6R INH 10/15/17 21:00 11/14/17 20:59 10/20/17 14:08 1.25 MG Non-Formulary Medication (Beclomethasone Dipropionate (N (Qnasl)) 1 spry DAILY N/A 10/16/17 09:00 11/15/17 08:59 10/20/17 07:51 1 SPRY Insulin Aspart (novoLOG ASPART) SLIDING SCALE If C... Q6 SC 10/16/17 00:00 10/16/17 16:06 DC 10/16/17 12:07 30 UNITS Miconazole Nitrate (Desenex Powder) 1 appln BID PRN EXT 10/16/17 09:15 11/15/17 09:14 10/16/17 12:40 1 APPLN Midazolam HCl (Versed Inj) 3 mg ONE ONCE IV 10/16/17 09:54 10/16/17 09:57 DC 10/16/17 09:54 3 MG Fentanyl Citrate (Fentanyl Inj) 75 mcg ONE ONCE IV 10/16/17 09:54 10/16/17 09:57 DC 10/16/17 09:54 75 MCG Lidocaine HCl (Lidocaine 4% Inh Soln) 4 ml ONE ONCE TOP 10/16/17 09:54 10/16/17 09:57 DC 10/16/17 09:54 4 ML Lidocaine HCl (VISCOUS LIDOCAINE 2% Soln) 3 ml ONE ONCE TOP 10/16/17 09:54 10/16/17 09:57 DC 10/16/17 09:54 3 ML Piperacillin Sod/ Tazobactam Sod 4.5 gm/Dextrose 120 ml @ 30 mls/hr Q8H IV 10/16/17 16:00 10/23/17 15:59 10/20/17 10:13 30 MLS/HR Piperacillin Sod/ Tazobactam Sod 4.5 gm/Dextrose 120 ml @ 200 mls/hr 1100 ONCE IV 10/16/17 11:00 10/16/17 11:35 DC 10/16/17 11:37 200 MLS/HR Insulin Aspart (novoLOG ASPART) SLIDING SCALE If C... ACHS SC 10/16/17 16:30 11/15/17 00:00 10/20/17 13:07 52 UNITS Acetylcysteine (Mucomyst 20% Inh Soln) 3 ml TIDR INH 10/16/17 21:00 11/15/17 20:59 10/20/17 14:09 3 ML Oseltamivir Phosphate (Tamiflu Cap) 75 mg NOW STAT PO 10/16/17 17:49 10/16/17 17:51 DC 10/16/17 18:44 75 MG Oseltamivir Phosphate (Tamiflu Cap) 75 mg BID PO 10/17/17 08:00 10/17/17 16:05 DC 10/17/17 08:26 75 MG Sodium Chloride ([place] Nasal [place]) 225 sprays STK-MED ONCE .ROUTE 10/16/17 23:54 10/16/17 23:55 DC 10/17/17 00:15 225 SPRAYS Methylprednisolone Sodium Succinate 60 mg/Syringe 0.96 ml @ 1.5 mls/min Q12H IV 10/17/17 18:00 10/18/17 17:35 DC 10/18/17 06:06 1.5 MLS/MIN Bumetanide (Bumex Tab) 2 mg NOW ONCE PO 10/18/17 17:45 10/18/17 17:46 DC 10/18/17 17:43 2 MG Potassium Chloride (Klor-Con Tab) 40 meq NOW STAT PO 10/18/17 17:33 10/18/17 17:41 DC 10/18/17 17:44 40 MEQ Methylprednisolone Sodium Succinate 40 mg/Syringe 0.64 ml @ 1.5 mls/min Q12H IV 10/18/17 18:00 11/15/17 00:00 10/20/17 05:46 1.5 MLS/MIN (Wendi Mckeon, JOHNNY) Objective Vital Signs Date Time Temp Pulse Resp B/P (MAP) Pulse Ox O2 Delivery O2 Flow Rate FiO2 10/20/17 16:00 Trach Collar 8.0 10/20/17 15:55 36.7 70 18 141/65 (90) 95 Trach Collar 8.0 10/20/17 14:09 77 20 97 Trach Collar 8.0 30 10/20/17 08:00 Trach Collar 8.0 30 10/20/17 07:28 36.6 68 22 157/85 (109) 98 Trach Collar 10/20/17 07:25 68 20 98 Trach Collar 8.0 30 10/20/17 01:54 72 20 97 Trach Collar 8.0 30 10/20/17 00:50 Trach Collar 8.0 30 10/20/17 00:08 36.4 60 22 137/74 (95) 97 Trach Collar 10/19/17 19:22 74 16 98 Trach Collar 8.0 30 (Wendi Mckeon CRNP) Physical Exam Notes: General: no distress Eyes: normal inspection, PERLL Respiratory: chest non tender, faint expiratory wheezes bilaterally, no respiratory distress, no accessory muscle use Cardiac: regular rate and rhythm, no rub or gallop, no murmur, no edema, no jvd GI/: active bowel sounds, no abd pain or tenderness, soft, non distended Extremities: normal range of motion, normal strength, non tender Neuro/Psych: alert and oriented x 3, normal mood and affect Skin: normal color, dry (Wendi Mckeon CRNP) Laboratory Results Last 24 Hours Test 10/19/17 18:33 10/19/17 20:21 10/20/17 06:27 10/20/17 07:47 Bedside Glucose 127 mg/dl 131 mg/dl 161 mg/dl White Blood Count 10.67 K/uL Red Blood Count 4.36 M/uL Hemoglobin 12.8 g/dL Hematocrit 38.4 % Mean Corpuscular Volume 88.1 fL Mean Corpuscular Hemoglobin 29.4 pg Mean Corpuscular Hemoglobin Concent 33.3 g/dl Platelet Count 168 K/uL Mean Platelet Volume 11.9 fL Neutrophils (%) (Auto) 80.4 % Lymphocytes (%) (Auto) 8.0 % Monocytes (%) (Auto) 11.0 % Eosinophils (%) (Auto) 0.0 % Basophils (%) (Auto) 0.0 % Neutrophils # (Auto) 8.59 K/uL Lymphocytes # (Auto) 0.85 K/uL Monocytes # (Auto) 1.17 K/uL Eosinophils # (Auto) 0.00 K/uL Basophils # (Auto) 0.00 K/uL RDW Standard Deviation 48.3 fL RDW Coefficient of Variation 15.0 % Immature Granulocyte % (Auto) 0.6 % Immature Granulocyte # (Auto) 0.06 K/uL Sodium Level 132 mmol/L Potassium Level mmol/L Chloride Level 94 mmol/L Carbon Dioxide Level 31 mmol/L Anion Gap 6.0 mmol/L Blood Urea Nitrogen 28 mg/dl Creatinine 1.03 mg/dl Est Creatinine Clear Calc Drug Dose 139.1 ml/min Estimated GFR () 89.8 Estimated GFR (Non- 77.5 BUN/Creatinine Ratio 26.7 Random Glucose 169 mg/dl Calcium Level 8.6 mg/dl Magnesium Level mg/dl Test 10/20/17 08:00 10/20/17 11:42 Potassium Level 4.2 mmol/L Magnesium Level 2.4 mg/dl Chemistry Specimen Hemolysis Bedside Glucose 243 mg/dl (Wendi Mckeon ., JOHNNY) Assessment and Plan 62 y/o male with a history of a-fib, HTN, HLD, chronic diastolic CHF, CAD, COPD , severe ALLIE w/trach, DM II, and chronic lower extremity swelling/cellulitis who presents with shortness of breath, productive cough and hemoptysis. COPD exacerbation/Acute on chronic hypoxic respiratory failure/Scant hemoptysis - cont solumedrol - will change to prednisone taper tomorrow; cont nebs, mucomyst; s/p bronch - cultures negative - urine Legionella antigen negative - BC NGTD - Pulmonary consulted Suspected aspiration pneumonia - zosyn, speech eval appreciated - no overt signs of aspiration, however; day # 5 of abx - can switch to po - Augmentin x 2 more days - Pulmonology consulted, appreciate recs: recommended Video swallow for possible aspiration but could not be done due to his size - Bronchoscopy showed diffuse erythema suggestive of aspiration Chronic diastolic CHF - suspect some element of acute decompensation although he is diuresing nicely with his home triple diuretics (metazolone, aldactone, bumex). - prp am - Daily weights on standing scale. - strict I/Os Uncontrolled T2DM - now improved with tightening his correction factor to 2 however he has not received this today due to low sugars - he is typically resistant to modifying his home lantus/novolog doses and thus we have left his lantus & novolog fixed amounts alone. Though he is somewhat complicated with his severe insulin resistance, he does not like for pharmacy to manage his diabetic medications so we will continue to leave his home dosing and watch closely Clinical influenza - suspected on admission, despite negative PCR flu - tamiflu discontinued after 3 days Depression - considering antidepressant trial; not interested in counseling. Morbid obesity with BMI 65 Afib - rates controlled with AV denise agents; cont xarelto. CAD - no ischemic symptoms at this time; cont asa, statin, BB, etc. HTN - BPs acceptable on BB, BRUNO, etc. Hyperlipidemia - continue statin agent. Severe ALLIE - s/p trach placement years ago. 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 Discussed with JOHNNY Mckeon and agree with findings and plan as documented in the note. Any exceptions or clarifications are listed here: Patient feeling much better today. Really thinks that he will be able to go home tomorrow. Blood sugars were low yesterday evening and he did not receive insulin. Vitals reviewed Physical Exam General Appearance: no apparent distress, + obese (Morbidly obese, sitting in the bed) Eyes: normal inspection, sclerae normal ENT: hearing grossly normal Neck: trachea midline (With trach collar in place) Respiratory/Chest: no respiratory distress, no accessory muscle use, + decreased breath sounds (Diminished throughout but sound fairly clear) Cardiovascular: no murmur, + irregularly irregular (With normal rate) Abdomen: normal bowel sounds, non tender, soft (And morbidly obese) Extremities: + swelling (Right leg with chronic woody pitting edema and mild erythema with multiple blisters and crusted over skin, left leg with trace edema ) Neurologic/Psychiatric: alert, normal mood/affect, oriented x 3 Skin: + pertinent finding (Diffuse ichthyosis and seborrhea) 62 y/o male with a history of a-fib, HTN, HLD, chronic diastolic CHF, CAD, COPD , severe ALLIE w/trach, DM II, and chronic lower extremity swelling/cellulitis who presents with shortness of breath, productive cough and hemoptysis. Found to have acute on chronic hypoxic respiratory failure, COPD exacerbation with scant hemoptysis, and suspected aspiration pneumonia. -Switching to p.o. antibiotics -Continue to taper down on steroids -Can likely be discharged to home tomorrow -Continue to carefully watch his sugars Documented By: Bell Gasca (Bell Gasca MD)
[2017-10-20] MEDS ORDERED: NURSING VERBAL MED ORDER ONE (18:15)
[2017-10-20] MEDS ORDERED: AMOXICILLIN/CLAVULANATE TAB 875 MG TAB PO ONE (18:45)
[2017-10-20] MEDS: LATANOPROST 0.005% OP SOLN 2.5 ML BTL OP SCH (20:06)
[2017-10-21] MEDS: LORAZEPAM 1 MG TAB PO PRN ×2 (00:12→08:12)
[2017-10-21 00:39] VITALS: BP 162/77; PULSE 62; TEMP 36.8; O2SAT 94
[2017-10-21 01:41] VITALS: PULSE 66; O2SAT 94
[2017-10-21] MEDS: LEVALBUTEROL 1.25MG/0.5ML NEB INH SCH ×3 (01:41→13:49)
[2017-10-21] MEDS: IPRATROPIUM BROMIDE NEB SOLN 0.02% 2.5 ML VIAL INH SCH ×3 (01:41→13:49)
[2017-10-21] MEDS: TRAMADOL HCL 50 MG TAB PO PRN (01:59)
[2017-10-21] MEDS: METHYLPREDNISOLONE IV 40 MG in SYRINGE 0 ML IV SCH (06:20)
[2017-10-21] MEDS: ACETYLCYSTEINE 20% INHAL SOLN ***DISPENSED BY RESP. INH SCH ×2 (07:10→13:49)
[2017-10-21 07:15] VITALS: PULSE 80; O2SAT 95
[2017-10-21 07:23] LABS: HEMATOCRIT 38.8 % (42-52); MEAN CELL VOLUME 86.2 fL (80-100); MEAN CORPUSCULAR HEMOGLOBIN 28.9 pg (25-34); MEAN CORPUSCULAR HGB CONC 33.5 g/dl (32-36); MEAN PLATELET VOLUME 12.1 fL (7.4-10.4); PLATELET COUNT 162 K/uL (130-400); RED CELL DISTRIBUTION WIDTH CV 14.9 % (11.5-14.5); RED CELL DISTRIBUTION WIDTH SD 46.3 fL (36.4-46.3); WHITE BLOOD COUNT 11.97 K/uL (4.8-10.8)
[2017-10-21 07:37] VITALS: BP 174/83; PULSE 62; TEMP 36.7; O2SAT 95
[2017-10-21 07:49] LABS: CALCIUM 8.4 mg/dl (8.5-10.1); CREATININE 0.92 mg/dl (0.60-1.40); POTASSIUM 4.1 mmol/L (3.5-5.1)
[2017-10-21] MEDS: BECLOMETHASONE DIPROPIONATE SCH (07:56)
[2017-10-21] MEDS: CLARINEX~ORDER AWAITING ACTION SCH (07:57)
[2017-10-21] MEDS: GUAIFENESIN 600 MG TABCR PO SCH (07:58)
[2017-10-21] MEDS: POTASSIUM CHLORIDE 20 MEQ TABCR PO SCH (07:58)
[2017-10-21] MEDS: MAGNESIUM OXIDE 400 MG TAB PO SCH ×2 (07:59→13:35)
[2017-10-21] MEDS: LISINOPRIL 10 MG TAB PO SCH (07:59)
[2017-10-21] MEDS: RIVAROXABAN 10 MG TAB PO SCH (08:00)
[2017-10-21] MEDS: BACITRACIN OINT 15 GM TUBE TOP SCH (08:00)
[2017-10-21] MEDS: METOLAZONE 5 MG TAB PO SCH (08:00)
[2017-10-21] MEDS: ASPIRIN 81 MG ECTAB PO SCH (08:00)
[2017-10-21] MEDS ORDERED: AMOXICILLIN/CLAVULANATE TAB 875 MG TAB PO SCH (08:00)
[2017-10-21] MEDS: BUMETANIDE 1 MG TAB PO SCH (08:01)
[2017-10-21] MEDS: DILTIAZEM HCL 120 MG ER CAP PO SCH (08:01)
[2017-10-21] MEDS: ISOSORBIDE MONONITRATE 30 MG TABCR PO SCH (08:01)
[2017-10-21] MEDS: CEROVITE ADV FORMULA TAB PO SCH (08:02)
[2017-10-21] MEDS: SODIUM CHLORIDE 1 GM TAB PO SCH (08:02)
[2017-10-21] MEDS: ATORVASTATIN 40 MG TAB PO SCH (08:02)
[2017-10-21] MEDS: METOPROLOL TARTRATE 25 MG TAB PO SCH (08:03)
[2017-10-21] MEDS: DORZOLAMIDE HCL 2% OPH SOLN 10 ML BTL OP SCH (08:04)
[2017-10-21] MEDS: INSULIN ASPART 100 UNITS/ML VIAL SC SCH ×3 (08:19→12:21)
[2017-10-21] MEDS: INSULIN ASPART 100 UNITS/ML VIAL SQ SCH (08:20)
[2017-10-21] MEDS: INSULIN GLARGINE SC SCH (08:21)
[2017-10-21] MEDS: SPIRONOLACTONE 25 MG TAB PO SCH (08:24)
[2017-10-21] MEDS ORDERED: PRED10TA PO (10:19)
[2017-10-21] MEDS ORDERED: AMOX1TAB43 PO (10:19)
--- NOTE | 2017-10-21 10:21 | Discharge Instructions ---
Discharge Instructions Date of Service Oct 21, 2017. Admission Reason for Admission: Acute Respiratory Failure Discharge Discharge Diagnosis / Problem: Acute respiratory failure Discharge Goals Goal(s): Improve function, Improve disease control Activity Recommendations Activity Limitations: resume your previous activity Exercise/Sports Limitations: gradually increase as tolerated . Instructions / Follow-Up Instructions / Follow-Up Please complete your prednisone taper as follows: 40 mg daily x 2 days 30 mg daily x 2 days 20 mg daily x 2 days 10 mg daily x 2 days Please finish out the antibiotics for your Pneumonia as prescribed. Please keep your pulmonology appointment with Tony Magana next week Please follow up with your primary care provider within about a week Call your Primary Care doctor if any of the following symptoms or problems start or get worse: * Shortness of breath or difficulty breathing * Wake up at night short of breath * Chest pain * Cough * Swelling of your hands, feet, or legs * More fatigued or tired with your normal activity * Palpitations - sudden fast heart beats WEIGHT * Weigh yourself every morning after using the bathroom. * Use the same scale. * Wear the same amount of clothing. * Write your weight down on a chart. * Call your Primary Care doctor if you gain more than 2-3 pounds in 1-2 days. MEDICATIONS * Use this discharge instruction sheet for medication instructions. * Take your medications at the time your doctor ordered. * Do not skip a dose of your medicines. * If you miss a dose of medicine, take it as soon as possible, but DO NOT DOUBLE A DOSE. * Read your medicine information when you get home. * Know all of the side effects of your medicine. If in doubt, ask your pharmacist * Call your Primary Care doctor's office if you have any side effects. * Be sure all of your doctors know what medicine and herbs you take (including cold, flu, and herbal medicine). Take the following with you to your follow-up doctor appointments: * Weight Chart * Medication List * List of questions Do not drink excessive alcohol, beer or wine. Current Hospital Diet Patient's current hospital diet: Diabetes Type 2 Diet, AHA Diet (Heart Healthy) Discharge Diet Recommended Diet: AHA Diet (Heart Healthy), Diabetes Type 2 Diet Procedures Procedures Performed: BRONCHOSCOPY Chest Xray Pending Studies Studies pending at discharge: no Laboratory Results Hemoglobin A1c Test 10/16/17 07:02 Range/Units Estimated Average Glucose 209 mg/dl Hemoglobin A1c 8.9 H 4.5-5.6 % Medical Emergencies . Who to Call and When: Call 911 or go to the Emergency Room if: * If at any time you feel your situation is an emergency * You have tightness or pain in your chest that does not go away with rest or Nitroglycerin * You are very short of breath even with rest . Non-Emergent Contact Non-Emergency issues call your: Primary Care Provider Call Non-Emergent contact if: you have a fever, you have any medication questions . . "Provider Documentation" section prepared by Wendi Mckeon. .
--- NOTE | 2017-10-21 10:36 | Discharge Summary ---
Discharge Summary Date of Service Oct 21, 2017. Discharge Summary Admission Date: Oct 15, 2017 at 19:37 Discharge Date: Oct 21, 2017 Discharge Disposition: Home Principal Diagnosis: Acute Respiratory Failure Problems/Secondary Diagnoses: COPD exacerbation/Acute on chronic hypoxic respiratory failure/Scant hemoptysis , Suspected aspiration pneumonia, Chronic diastolic CHF, Uncontrolled T2DM, Clinical influenza, Depression, Morbid obesity with BMI 65, Afib, CAD, HTN, Hyperlipidemia, Severe ALLIE Immunizations: Have You Had Influenza Vaccine: Yes History of Pneumococcal: Yes Procedures: CHEST ONE VIEW PORTABLE CLINICAL HISTORY: Chest pain. COMPARISON STUDY: Chest radiograph July 12, 2017. FINDINGS: This exam is significantly compromised due to portable technique and body habitus with suboptimal penetration. Tracheostomy tube is noted as well as median sternotomy wires. Cardiomegaly is unchanged. Left hemithorax pleural calcification is again noted. Scarring within the left lung is again noted. There is pulmonary vascular congestion without overt edema. There is no lobar consolidation. Mediastinal widening is unchanged. IMPRESSION: 1. Technically compromised exam given portable technique and body habitus. 2. Pulmonary vascular congestion without evidence for pulmonary edema. Stable cardiomegaly. Bronchoscopy Procedure Note Procedure: Bronchoscopy, conscious sedation, bronchial lavage Consent: Obtained through the patient placed into the chart Pre-procedural diagnosis: Hemoptysis Post-procedural diagnosis: Tracheostomy within normal limits and severe ALLIE with possible hypoventilation syndrome, possible aspiration Start time: 913 End time: 932 Total time: 19 minutes Analgesia: 2% liquid lidocaine: Via nebulizer 2% liquid lidocaine: Via bronchoscopy Sedation: Versed IV: 3mg Fentanyl IV: 75g Procedure: The Olympus video bronchoscope was used for this procedure and passed down through the tracheostomy, tracheostomy tube was removed prior to the procedure Tracheostomy: Was mildly anterior displaced and there was a small false cavity between the skin as well as the tracheal rings and there is notable granulation but no active bleeding Trachea/Lawanda: Anatomically within normal limits, diffuse erythema especially along the posterior wall suggestive of aspiration Right bronchial tree: Right mainstem bronchus: Anatomically within normal limits Right upper lobe: Anatomically within normal limits Bronchus intermedius: Anatomically within normal limits Right middle lobe: Anatomically within normal limits Right lower lobe: Anatomically within normal limits Findings: Diffuse erythema especially in posterior wall Left bronchial tree: Left mainstem bronchus: Anatomically within normal limits Left upper lobe: Anatomically within normal limits Lingula: Anatomically within normal limits Left lower lobe: Anatomically within normal limits Findings: Diffuse erythema along the posterior wall Bronchial alveolar lavage: Left lower lobe EBL: None Complications: None Follow-up: ASU Consultations: Dr. Evans from pulmonology Medication Reconciliation New Medications: Prednisone Tab (Prednisone) 10 Mg Tab 10 MG PO DAILY for 8 Days, #20 TAB 40 mg daily x 2 days 30 mg daily x 2 days 20 mg daily x 2 days 10 mg daily x 2 days Amoxicillin & Pot Clavulanate (Amoxicillin/Clavulanate P) 1 Tab Tab 875 MG PO BIDM for 2 Days, #3 TAB Continued Medications: Albuterol Hfa (Ventolin Hfa) 200 Puffs/30923 Mcg Aers 1 PUFFS INH QID PRN for SOB/Wheezing, INHALER Aspirin (Aspirin 81) 81 Mg Tab 81 MG PO DAILY Atorvastatin (Lipitor) 80 Mg Tab 80 MG PO DAILY, TAB Bacitracin (Topical) (Bacitracin) 500 Unit/Gm Oin 1 APPLN TOP DAILY for AFFECTED AREA, GM Beclomethasone Dipropionate (N (Qnasl) 80 Mcg/Act Aer 1 SPRY SIMBA DAILY, GM Bumetanide (Bumetanide) 1 Mg Tab 2 MG PO QAM for 30 Days, #30 DOSE Desloratadine (Clarinex) 5 Mg Tab 5 MG PO DAILY, TAB Diltiazem Hcl (Diltiazem Hcl Er) 120 Mg Cap 1 CAP PO DAILY Dorzolamide Hcl (Trusopt Oph) 2 % Vanessa 1 DROPS OP BID, ML Fish Oil ([place]-3) 1 Ea Cap 1 CAP PO DAILY, CAP Fluticasone Furoate (Inhalatio (Arnuity Ellipta) 200 Mcg/Act Inh 1 PUFF INH DAILY Glucagon (Glucagon Emergency Kit) 1 Mg Kit 1 DOSE INJ UD Guaifenesin (Mucinex Maximum Strength) 1,200 Mg Tab 1200 MG PO BID, TAB Insulin Aspart (Novolog Flexpen) 100 Units/Ml Inj 100 UNITS SQ BREAKFAST over 200 +4 over 250 +8 over 300 +10 Insulin Aspart (Novolog Flexpen) 100 Units/Ml Inj 70 UNITS SC LUNCH over 200 +4 over 250 +8 over 300 +10 Insulin Aspart (Novolog Flexpen) 100 Units/Ml Inj 95 UNITS SC DINNER over 200 +4 over 250 +8 over 300 +10 Insulin Glargine (Lantus Solostar) 100 Unit/Ml Inj 118 SC QAM Insulin Glargine (Lantus Solostar) 100 Unit/Ml Inj 115 SC QPM Ipratropium-Albuterol (Duoneb) 3 Ml Nebu 1 TREATMENT INH Q4H, INHA Isosorbide Mononitrate (Isosorbide Mononitrate ER) 30 Mg Tabcr 30 MG PO DAILY Latanoprost (Xalatan 0.005% Oph Vanessa) 0.005 % Vanessa 1 DROPS OP HS, ML Lisinopril (Zestril) 10 Mg Tab 10 MG PO DAILY, TAB Lorazepam (Lorazepam) 1 Mg Tab 1 MG PO QID PRN for Anxiety Magnesium Oxide (Mag-Ox) 400 Mg Tab 400 MG PO TID, TAB Metolazone (Zaroxolyn) 5 Mg Tab 5 MG PO DAILY, TAB Metoprolol Tartrate (Lopressor) (Lopressor) 25 Mg Tab 25 MG PO BID, TAB Multivitamins/Minerals (Mvi With Minerals) Tab 1 TAB PO DAILY, TAB Nitroglycerin (Nitrostat) 0.4 Mg Tab 1 TAB SL UD, TAB Potassium Ext Rel (Klor-Con) 20 Meq Tabcr 3 TAB PO BID, TAB Rivaroxaban (Xarelto) 20 Mg Tab 20 MG PO DAILY Sodium Chloride (Sodium Chloride) 1 Gm Tab 1 GM PO DAILY Spironolactone (Aldactone) 25 Mg Tab 25 MG PO BID, TAB Tramadol (Ultram) 50 Mg Tab 50 MG PO Q8H PRN for Pain, TAB Discharge Exam ROS Constitutional: no chills, aches, sweats or fever Respiratory: some sob which is baseline, patient feels he is at his best,some cough with minimal sputum, or wheezing Cardiac: no chest pain, palpitations,orthopnea or lightheadedness GI: no abdominal pain, nausea, vomiting, diarrhea or constipation : no dysuria or hesitancy Extremities: no joint pain or weakness Skin: no rash All other systems reviewed and negative General: no distress Eyes: normal inspection, PERLL Respiratory: chest non tender, clear to auscultation, normal breath sounds, no respiratory distress, no accessory muscle use Cardiac: regular rate and rhythm, no rub or gallop, no murmur, +1 pitting edema lower extremities GI/: active bowel sounds, no abd pain or tenderness, soft, non distended Extremities: normal range of motion, normal strength, non tender Neuro/Psych: alert and oriented x 3, normal mood and affect Skin: normal color, dry Hospital Course 62-year-old man with past medical history of morbid obesity, hypertension, severe COPD, severe obstructive sleep apnea, did not tolerate BiPAP currently have a trach, diabetes mellitus type 2 with severe insulin resistance , congestive heart failure, CAD status post CABG and multiple stents, also has Pleural Plaques, RLL nodule thought to b e a hamartoma, chronic lower extremity swelling and recurrent cellulitis and atrial fibrillation currently on Xarelto. Patient had been having recurrent episodes of increasingly severe shortness of breath and copious secretions coming from the trach [employer]. Secretions were reportedly serosanguineous and occasionally yellowish or greenish. COPD exacerbation/Acute on chronic hypoxic respiratory failure/Scant hemoptysis - given solumedrol - prednisone taper for home - given nebs, mucomyst - discharged with home pulm medications - s/p bronch with Dr. Evans- cultures negative - urine Legionella antigen negative - BC showed no growth - Pulmonary consulted Suspected aspiration pneumonia - zosyn, speech eval appreciated - no overt signs of aspiration, however; given Zosyn for 5 days, patient will finish 7 day regimen with Augmentin x 2 more days - Pulmonology consulted, appreciate recs: recommended Video swallow for possible aspiration but could not be done due to his size - Bronchoscopy showed diffuse erythema suggestive of aspiration Chronic diastolic CHF - suspect some element of acute decompensation although he did diurese nicely with his home triple diuretics (metazolone, aldactone, bumex). - Daily weights on standing scale - 10 kg down from admission - strict I/Os Uncontrolled T2DM - bsgs were somewhat labile, added correction factor on top of home meds which did help though he had an episode of low bsgs in the 50s one night. - he is typically resistant to modifying his home lantus/novolog doses and thus we have left his lantus & novolog fixed amounts alone. Though he is somewhat complicated with his severe insulin resistance, he does not like for pharmacy to manage his diabetic medications so we will continue to leave his home dosing and watch closely - discharged with home insulin regimen Clinical influenza - suspected on admission, despite negative PCR flu - tamiflu discontinued after 3 days Depression - considering antidepressant trial; not interested in counseling. Morbid obesity with BMI 65 Afib - rates controlled with AV denise agents; cont xarelto. CAD - no ischemic symptoms at this time; cont asa, statin, BB, etc. HTN - BPs acceptable on BB, BRUNO, etc. Hyperlipidemia - continue statin agent. Severe ALLIE - s/p trach placement years ago. Total Time Spent: Greater than 30 minutes This includes examination of the patient, discharge planning, medication reconciliation, and communication with other providers. Discharge Instructions Please refer to the electronic Patient Visit Report (Discharge Instructions) for additional information. Follow-Up Tony Magana next week PCP in about a week Additional Copies To Tony Magana PA-C Reviewed: Pt Seen/Exam by Me History JOHNNY Supervision Note: I interviewed and examined the patient. Discussed with JOHNNY Mckeon and agree with findings and plan as documented in the note. Any exceptions or clarifications are listed here: Patient feeling much better today. Feels he is ready to go home, his pulse ox with ambulation was 94% off oxygen Vitals reviewed Physical Exam General Appearance: no apparent distress, + obese (Morbidly obese, sitting in the bed) Eyes: normal inspection, sclerae normal ENT: hearing grossly normal Neck: trachea midline (With trach collar in place) Respiratory/Chest: no respiratory distress, no accessory muscle use, + decreased breath sounds (Diminished throughout but sound fairly clear) Cardiovascular: no murmur, + irregularly irregular (With normal rate) Abdomen: normal bowel sounds, non tender, soft (And morbidly obese) Extremities: + swelling (Right leg with chronic woody pitting edema and mild erythema with multiple blisters and crusted over skin, left leg with trace edema ) Neurologic/Psychiatric: alert, normal mood/affect, oriented x 3 Skin: + pertinent finding (Diffuse ichthyosis and seborrhea) 62 y/o male with a history of a-fib, HTN, HLD, chronic diastolic CHF, CAD, COPD , severe ALLIE w/trach, DM II, and chronic lower extremity swelling/cellulitis who presents with shortness of breath, productive cough and hemoptysis. Found to have acute on chronic hypoxic respiratory failure, COPD exacerbation with scant hemoptysis, and suspected aspiration pneumonia. -Switching to p.o. antibiotics and stable for discharge to home -Continue to taper down on steroids -Continue to carefully watch his sugars Documented By: Bell Gasca
[2017-10-21] MEDS ORDERED: MCTP EXT (12:32)
[2017-10-21 13:19] VITALS: BP 174/83; PULSE 62; TEMP 36.7; O2SAT 95
--- NOTE | 2017-10-23 13:35 | EDITING REQUIRED CODING QUERY ---
CODING QUERY To promote full compliance with coding requirements relating to patient care, provider participation is requested in all cases of [employer] uncertainty. Please assist us with the question(s) below: The term Uncontrolled Diabetes was used throughout the record to be able to code this diagnosis properly could you please clarify the diagnosis below ( ) Uncontrolled Diabetes meaning hypoglycemia ( ) Uncontrolled Diabetes meaning hyperglycemia ( x) Other (Please Specify) - labile diabetes with hypo and hyperglycemia Thank you Nayla Watts Principal Diagnosis: "_that condition established after study, to be chiefly responsible for occasioning the admission of the patient to the hospital for care." Co-Existing Principal Diagnosis: "_when two or more diagnoses equally meet the criteria for principal diagnosis as determined by the circumstances of admission, diagnostic work up, and/or therapy provided, and the Alphabetic Index, Tabular List, or another coding guideline does not provide sequencing direction, any one of the diagnoses may be sequenced first." "When the physician has documented what appears to be a current diagnosis in the body of the record, but has not included the diagnosis in the final diagnostic statement, the physician should be asked whether the diagnosis should be added." (Source [facility]oding [facility] 2 QTR90. p3-4)
== END 2017-10-21 14:10 | disposition home or self-care (01) | DRG 177 ==
LOC: C.EDB 14:58 → C.MED 19:37 → ENRESERV 19:58 → C.MS4W 10-16 19:19
PROVIDERS: ADMIT Internal Medicine; ATTEND Family Medicine
PROC: 0B9B8ZX Drainage of Left Lower Lobe Bronchus, Via Natural or Artificial Opening Endoscopic, Diagnostic (ICD-10-PCS; principal; 2017-10-16 08:21)
DX: J69.0 Pneumonitis due to inhalation of food and vomit (principal); J96.21 Acute and chronic respiratory failure with hypoxia; J44.1 Chronic obstructive pulmonary disease with (acute) exacerbation; E87.1 Hypo-osmolality and hyponatremia; L03.115 Cellulitis of right lower limb; L97.901 Non-pressure chronic ulcer of unspecified part of unspecified lower leg limited to breakdown of skin; E66.2 Morbid (severe) obesity with alveolar hypoventilation; I50.32 Chronic diastolic (congestive) heart failure; Z83.3 Family history of diabetes mellitus; Z82.49 Family history of ischemic heart disease and other diseases of the circulatory system; Z79.82 Long term (current) use of aspirin; I20.9 Angina pectoris, unspecified; F41.9 Anxiety disorder, unspecified; M25.50 Pain in unspecified joint; I48.91 Unspecified atrial fibrillation; I25.10 Atherosclerotic heart disease of native coronary artery without angina pectoris; G89.29 Other chronic pain; Z99.81 Dependence on supplemental oxygen; E78.6 Lipoprotein deficiency; Z93.0 Tracheostomy status; G47.33 Obstructive sleep apnea (adult) (pediatric); Z86.19 Personal history of other infectious and parasitic diseases; Z87.01 Personal history of pneumonia (recurrent); Z95.1 Presence of aortocoronary bypass graft; R91.1 Solitary pulmonary nodule; E11.649 Type 2 diabetes mellitus with hypoglycemia without coma; E11.65 Type 2 diabetes mellitus with hyperglycemia

== ENCOUNTER 2017-11-06 14:13 | Inpatient (IN) | payer OTHER ==
[~2017-11-06] VITALS: Ht 180.3 cm; Wt 205.1 kg
[~2017-11-06 14:13] MED LIST changes: -ACET20SO4 INH; +AMOX1TAB43 PO; -FLUO20CA20 PO; -INSDGI SC; +INSDGIPEN SC; -LVQ750 PO; +MCTP EXT; +POTA-639 PO; -POTA20TA16 PO
[2017-11-06] MEDS ORDERED: ALBUT/IPRATROP 3MG/0.5MG NEB 3 ML VIAL INH STA (14:36)
[2017-11-06] MEDS ORDERED: OPTIRAY 320 IV PRN (14:45)
--- NOTE | 2017-11-06 15:12 | DIAGNOSTIC IMAGING REPORT ---
CHEST ONE VIEW PORTABLE CLINICAL HISTORY: EVALUATE RESPIRATORY DISTRESS.DYSPNEA COMPARISON STUDY: Chest radiograph October 15, 2017. FINDINGS: Note is made of median sternotomy wires and tracheostomy tube. Enlargement of the cardiac silhouette is unchanged. There is no radiographic evidence for pulmonary edema. Left midlung density is likely unchanged from earlier exams. This favors scarring. Left pleural calcification is again noted. IMPRESSION: 1. Stable cardiomegaly without evidence for pulmonary edema. 2. Left midlung opacity which is similar to previous exams. This favors scarring. Electronically signed by: Alexis Luna M.D. 11/06/2017 3:11 PM Dictated Date/Time: 11/06/2017 3:07 PM
[2017-11-06 15:14] VITALS: PULSE 60; O2SAT 94
[2017-11-06] MEDS ORDERED: LORAZEPAM 0.5 MG TAB SL STA (15:42)
[2017-11-06] MEDS ORDERED: AMOX875T PO (15:44)
[2017-11-06 15:51] LABS: BASO % 0.2 %; BASO ABS # 0.02 K/uL (0-0.2); EOS % 0.6 %; EOS ABS # 0.05 K/uL (0-0.5); HEMATOCRIT 36.7 % (42-52); HEMOGLOBIN 12.7 g/dL (14.0-18.0); IG# 0.03 K/uL (0.00-0.02); LYMPH % 15.2 %; MEAN CELL VOLUME 84.8 fL (80-100); MEAN CORPUSCULAR HEMOGLOBIN 29.3 pg (25-34); MEAN CORPUSCULAR HGB CONC 34.6 g/dl (32-36); MEAN PLATELET VOLUME 10.4 fL (7.4-10.4); MONO % 5.6 %; MONO ABS # 0.48 K/uL (0.11-0.59); NEUT ABS # 6.66 K/uL (1.4-6.5); PLATELET COUNT 119 K/uL (130-400); RED CELL DISTRIBUTION WIDTH CV 14.7 % (11.5-14.5); RED CELL DISTRIBUTION WIDTH SD 45.9 fL (36.4-46.3); WHITE BLOOD COUNT 8.54 K/uL (4.8-10.8)
[2017-11-06 16:00] LABS: INR 1.2 (0.9-1.1)
[2017-11-06 16:11] LABS: BLOOD UREA NITROGEN 18 mg/dl (7-18); CALCIUM 8.8 mg/dl (8.5-10.1); CARBON DIOXIDE 34 mmol/L (21-32); CREATININE 0.93 mg/dl (0.60-1.40); GLUCOSE 164 mg/dl (70-99); POTASSIUM 3.7 mmol/L (3.5-5.1); SODIUM 129 mmol/L (136-145)
[2017-11-06] MEDS ORDERED: DEXT1TAB50 PO (16:14)
--- NOTE | 2017-11-06 17:43 | EMERGENCY ROOM VISIT NOTE ---
History Report prepared by Shine: Adiel Horne Under the Supervision of: Dr. Juwan Medeiros M.D. First contact with patient: 14:16 Chief Complaint: SHORTNESS OF BREATH Stated Complaint: TROUBLE BREATHING History of Present Illness The patient is a 62 year old white male with a past medical history of acute respiratory failure, cellulitis, CHF exacerbation, COPD (chronic obstructive pulmonary disease), COPD exacerbation, Diabetes, dyspnea, fever chills, HCAP ( healthcare-associated pneumonia), hemoptysis, hyperlipidemia, hyponatremia, morbid obesity, PNA (pneumonia), sepsis due to Streptococcus pneumoniae, and SOB (shortness of breath) who presents to the Emergency Room with complaints of an acute worsening of his chronic breathing difficulties that he has been dealing with for the past few years. The patient states that his breathing began to worsen a couple of weeks ago, and he has also started to notice blood in his tracheotomy tube. The bleeding in the tracheotomy has been worsening as well, and he notes that it was worsened after a cleaning by Dr. Evans recently. He has been coughing up blood as well. He denies any chest pain. The tracheotomy was performed in 2014, and his last tube replacement was last February. The patient is on Xarelto as a blood thinner. He is not a smoker. Source of History: patient Onset: Couple of weeks Position: chest Quality: other (SOB, blood in trach) Timing: worsening Associated Symptoms: No chest pain Review of Systems See HPI for pertinent positives and negatives. A total of ten systems were reviewed and were otherwise negative. Past Medical & Surgical Medical Problems: (1) Acute respiratory failure (2) Cellulitis (3) Cellulitis and abscess of leg (4) CHF exacerbation (5) COPD (chronic obstructive pulmonary disease) (6) COPD exacerbation (7) Diabetes (8) Diabetes mellitus type 2 in obese (9) Dyspnea (10) Fever chills (11) HCAP (healthcare-associated pneumonia) (12) Hemoptysis (13) History of CHF (congestive heart failure) (14) Hyperlipidemia (15) Hyponatremia (16) Morbid obesity (17) PNA (pneumonia) (18) Sepsis due to Streptococcus pneumoniae (19) SOB (shortness of breath) Surgical Problems: (1) Tracheostomy in place Family History Diabetes mellitus Heart disease Hypertension Social History Smoking Status: Former Smoker Drug Use: none Marital Status: Housing Status: lives with family Occupation Status: unemployed Current/Historical Medications Scheduled Amoxicillin & Pot Clavulanate (Augmentin 875-125 mg), 1 TAB PO BID Aspirin (Aspirin 81), 81 MG PO DAILY Atorvastatin (Lipitor), 80 MG PO DAILY Beclomethasone Dipropionate (N (Qnasl), 1 SPRY SIMBA DAILY Bumetanide (Bumetanide), 2 MG PO QAM Desloratadine (Clarinex), 5 MG PO DAILY Dextromethorphan-Guaifenesin (Mucinex Dm Maximum Streng), 1 TAB PO BID Diltiazem Hcl (Diltiazem Hcl Er), 1 CAP PO DAILY Dorzolamide Hcl (Trusopt Oph), 1 DROPS OP BID Fish Oil ([place]-3), 1 CAP PO DAILY Fluticasone Furoate (Inhalatio (Arnuity Ellipta), 1 PUFF INH DAILY Glucagon (Glucagon Emergency Kit), 1 DOSE INJ UD Guaifenesin (Mucinex Maximum Strength), 1,200 MG PO BID Insulin Aspart (Novolog Flexpen), 100 UNITS SQ BREAKFAST Insulin Aspart (Novolog Flexpen), 70 UNITS SC LUNCH Insulin Aspart (Novolog Flexpen), 95 UNITS SC DINNER Insulin Glargine (Lantus Solostar), 118 SC QAM Insulin Glargine (Lantus Solostar), 115 SC QPM Ipratropium-Albuterol (Duoneb), 1 TREATMENT INH Q4H Isosorbide Mononitrate (Isosorbide Mononitrate ER), 30 MG PO DAILY Latanoprost (Xalatan 0.005% Oph Vanessa), 1 DROPS OP HS Lisinopril (Zestril), 10 MG PO DAILY Magnesium Oxide (Mag-Ox), 400 MG PO TID Metolazone (Zaroxolyn), 5 MG PO DAILY Metoprolol Tartrate (Lopressor) (Lopressor), 25 MG PO BID Multivitamins/Minerals (Mvi With Minerals), 1 TAB PO DAILY Nitroglycerin (Nitrostat), 1 TAB SL UD Potassium Ext Rel (Klor-Con), 3 TAB PO BID Rivaroxaban (Xarelto), 20 MG PO DAILY Sodium Chloride (Sodium Chloride), 1 GM PO DAILY Spironolactone (Aldactone), 25 MG PO BID Scheduled PRN Albuterol Hfa (Ventolin Hfa), 1 PUFFS INH QID PRN for SOB/Wheezing Lorazepam (Lorazepam), 1 MG PO QID PRN for Anxiety Miconazole Nitrate (Desenex Shake Powder), 1 APPLN EXT BID PRN for ABDOMINAL/ GROIN FOLDS Tramadol (Ultram), 50 MG PO Q8H PRN for Pain Allergies Coded Allergies: [place] (Verified Allergy, Severe, Difficulty breathing, 10/15/17) Sodium Hypochlorite (Verified Allergy, Unknown, HIVES AND RESPIRATORY DIFFICULTY FROM CLOROX, 10/15/17) Physical Exam Vital Signs Date Time Temp Pulse Resp B/P (MAP) Pulse Ox O2 Delivery O2 Flow Rate FiO2 11/06/17 16:50 82 24 128/80 92 Room Air 30 11/06/17 15:54 75 24 163/85 95 Trach Collar 30 11/06/17 15:14 60 22 94 Room Air 11/06/17 15:12 94 Room Air 11/06/17 15:12 94 Room Air 11/06/17 15:10 85 11/06/17 14:17 36.9 82 22 132/64 95 Room Air Physical Exam GENERAL: Awake, alert, morbidly obese, NAD, tracheostomy tube is in place. HENT: Normocephalic, atraumatic. EYES: Normal conjunctiva. Sclera non-icteric. NECK: Supple. No nuchal rigidity. FROM. RESPIRATORY: decreased breath sounds bilaterally, no rhonchi, wheezing, crackles CARDIAC: RRR, no MRG ABDOMEN: Soft, distended, BS+ MSK: No chest wall TTP, pedal LE edema, chronic venous stasis changes in the RLE. NEURO: GCS 15, CN 2-12 intact, moves all 4s on command SKIN: No rash or jaundice noted. Medical Decision & Procedures ER Provider Diagnostic Interpretation: Radiology results as stated below per my review and radiologist interpretation: CHEST ONE VIEW PORTABLE CLINICAL HISTORY: EVALUATE RESPIRATORY DISTRESS.DYSPNEA COMPARISON STUDY: Chest radiograph October 15, 2017. FINDINGS: Note is made of median sternotomy wires and tracheostomy tube. Enlargement of the cardiac silhouette is unchanged. There is no radiographic evidence for pulmonary edema. Left midlung density is likely unchanged from earlier exams. This favors scarring. Left pleural calcification is again noted. IMPRESSION: 1. Stable cardiomegaly without evidence for pulmonary edema. 2. Left midlung opacity which is similar to previous exams. This favors scarring. Electronically signed by: Alexis Luna M.D. 11/06/2017 3:11 PM Dictated Date/Time: 11/06/2017 3:07 PM Laboratory Results 11/06/17 15:40 Red Blood Count 4.33, Mean Corpuscular Volume 84.8, Mean Corpuscular Hemoglobin 29.3, Mean Corpuscular Hemoglobin Concent 34.6, Mean Platelet Volume 10.4, Neutrophils (%) (Auto) 78.0, Lymphocytes (%) (Auto) 15.2, Monocytes (%) (Auto) 5.6, Eosinophils (%) (Auto) 0.6, Basophils (%) (Auto) 0.2, Neutrophils # (Auto) 6.66, Lymphocytes # (Auto) 1.30, Monocytes # (Auto) 0.48, Eosinophils # (Auto) 0.05, Basophils # (Auto) 0.02 11/06/17 15:40 Test 11/06/17 15:40 White Blood Count 8.54 K/uL (4.8-10.8) Red Blood Count 4.33 M/uL (4.7-6.1) Hemoglobin 12.7 g/dL (14.0-18.0) Hematocrit 36.7 % (42-52) Mean Corpuscular Volume 84.8 fL (80-100) Mean Corpuscular Hemoglobin 29.3 pg (25-34) Mean Corpuscular Hemoglobin Concent 34.6 g/dl (32-36) Platelet Count 119 K/uL (130-400) Mean Platelet Volume 10.4 fL (7.4-10.4) Neutrophils (%) (Auto) 78.0 % Lymphocytes (%) (Auto) 15.2 % Monocytes (%) (Auto) 5.6 % Eosinophils (%) (Auto) 0.6 % Basophils (%) (Auto) 0.2 % Neutrophils # (Auto) 6.66 K/uL (1.4-6.5) Lymphocytes # (Auto) 1.30 K/uL (1.2-3.4) Monocytes # (Auto) 0.48 K/uL (0.11-0.59) Eosinophils # (Auto) 0.05 K/uL (0-0.5) Basophils # (Auto) 0.02 K/uL (0-0.2) RDW Standard Deviation 45.9 fL (36.4-46.3) RDW Coefficient of Variation 14.7 % (11.5-14.5) Immature Granulocyte % (Auto) 0.4 % Immature Granulocyte # (Auto) 0.03 K/uL (0.00-0.02) Prothrombin Time 12.8 SECONDS (9.0-12.0) Prothromb Time International Ratio 1.2 (0.9-1.1) Activated Partial Thromboplast Time 27.0 SECONDS (21.0-31.0) Partial Thromboplastin Ratio 1.0 Anion Gap 3.0 mmol/L (3-11) Est Creatinine Clear Calc Drug Dose 151.9 ml/min Estimated GFR () 101.6 Estimated GFR (Non- 87.7 BUN/Creatinine Ratio 18.8 (10-20) Calcium Level 8.8 mg/dl (8.5-10.1) Total Creatine Kinase 79 U/L (39-308) Troponin I < 0.015 ng/ml (0-0.045) Pro-B-Type Natriuretic Peptide 280 pg/ml (0-900) Laboratory results reviewed by me Medications Administered Medications (Trade) Dose Ordered Sig/Saige Route Start Time Stop Time Status Last Admin Dose Admin Albuterol/ Ipratropium (Duoneb) 3 ml NOW STAT INH 11/06/17 14:36 11/06/17 14:38 DC 11/06/17 15:14 3 ML Lorazepam (Ativan Tab) 0.5 mg NOW STAT SL 11/06/17 15:42 11/06/17 15:44 DC 11/06/17 15:53 0.5 MG ECG Per My Interpretation Indication: SOB/dyspnea Rate (beats per minute): 69 Rhythm: atrial fibrillation (rate controlled) Findings: T-wave inversion (aVL), other (Normal QRS duration) ED Course 1424: The patient was evaluated in room C6. A complete history and physical exam was performed. 1429: The patient was evaluated in room C6. A complete history and physical exam was performed. 1436: Ordered Duoneb 3 mL INH. 1511: I discussed the case with Tony Del Cid PA-C Pulmonology. He suggests admitting the patient if possible. 1540: I checked on the patient. I will order some Ativan to relax him for the Imaging study. 1542: Ordered Lorazepam 0.5 mg SL. 1734: Dr. Herb Ramírez [place] [facility] [place] made aware of the case at this time. Medical Decision The patient is a 62 year old white male with a past medical history of acute respiratory failure, cellulitis, CHF exacerbation, COPD (chronic obstructive pulmonary disease), COPD exacerbation, Diabetes, dyspnea, fever chills, HCAP ( healthcare-associated pneumonia), hemoptysis, hyperlipidemia, hyponatremia, morbid obesity, PNA (pneumonia), sepsis due to Streptococcus pneumoniae, and SOB (shortness of breath) who presents to the Emergency Room with complaints of an acute worsening of his chronic breathing difficulties that he has been dealing with for the past few years. Nursing notes reviewed. Ancillary studies and prior records reviewed. Differential diagnosis: Etiologies such as infections, reactive airway disease, pneumonia, pneumothorax , COPD, CHF, cardiac ischemia, pulmonary embolism, musculoskeletal, gastrointestinal, as well as others were entertained. Patient was seen and evaluated the bedside. Patient does have severely morbid obesity, history of respiratory failure, CHF, COPD, and trach. Patient has been complaining of some hemoptysis. He does not describe it as always being scant does describe clots have been expressed through his trach. Of note the patient did have a bronchoscopy that was completed by Dr. Evans last month there were no obvious findings at least per the report. Patient does take blood thinning medications for his history of A. fib. Patient did have blood work completed was given some duo nebs, EKG, troponin, BNP, chest x-ray and a CT PE protocol ordered. Patient was given some Ativan to help with the CT however the patient was unable to fit in the CT scanner and this was unable to be completed. Patient does not have any episodes of hypoxia. The patient's chest x-ray does show some scarring but is otherwise clear without overt pulmonary edema or consolidation. Patient's coagulation studies are fairly normal. Patient has a normal mild anemia and thrombocytopenia. I did speak with the on-call cheese production supervisor who stated that he would likely benefit from a repeat bronchoscopy. I believe this may be best as the patient is unable to fit in the CT scanner and the patient does have hemoptysis on blood thinning medications. Hospitalist was paged. Medication Reconcilliation Current Medication List: was personally reviewed by me Blood Pressure Screening Patient's blood pressure: Elevated blood pressure Referred to hospitalist. Consults Time Called: 1507 Consulting Physician: Tony Del Cid PA-C Pulmonology. Returned Call: 1511 I discussed the case with Tony Del Cid PA-C Pulmonology. He suggests admitting the patient if possible. Additional Consults: Time Called: 1734 Consulted Physician: Dr. Herb VILLANUEVA Hospitalist Returned Call: 1734 Additional Comments: Dr. Herb VILLANUEVA Hospitalist was made aware of the case at this time. Impression Primary Impression: Hemoptysis Additional Impressions: Chronic obstructive pulmonary disease Morbid obesity Anemia Scribe Attestation The scribe's documentation has been prepared under my direction and personally reviewed by me in its entirety. I confirm that the note above accurately reflects all work, treatment, procedures, and medical decision making performed by me. Departure Information Dispostion Being Evaluated By Hospitalist Referrals Christofer Hanley DO (PCP) Patient Instructions My [facility] Problem Qualifiers Additional Impressions: Chronic obstructive pulmonary disease COPD type: unspecified COPD Qualified Codes: J44.9 - Chronic obstructive pulmonary disease, unspecified Anemia Anemia type: unspecified type Qualified Codes: D64.9 - Anemia, unspecified
[2017-11-06] MEDS ORDERED: PHARMACY GLYCEMIC MGMT CONSULT STA (18:11)
[2017-11-06] MEDS ORDERED: ALBUTEROL 0.083% NEBU SOLN 3 ML VIAL INH PRN (18:15)
[2017-11-06] MEDS ORDERED: LORAZEPAM 2 MG/ML 1 ML VIAL IV PRN (18:15)
[2017-11-06] MEDS ORDERED: MICONAZOLE NITRATE POWDER 43 GM EXT PRN (18:15)
[2017-11-06] MEDS ORDERED: NITROGLYCERIN 0.4 MG SL PER TAB CHARGE SL PRN (18:30)
[2017-11-06] MEDS ORDERED: ALUMINUM/MAGNESIUM/SIMETH (MAALOX MAX) 30 ML UDC PO PRN (18:30)
[2017-11-06] MEDS ORDERED: PIPERACILL/TAZOBAC CONSULT ACTIVE PRN (18:30)
[2017-11-06] MEDS ORDERED: MoRPHine SULFATE 2 MG/ML CARP IV PRN (18:30)
[2017-11-06] MEDS ORDERED: POLYETHYLENE (MIRALAX) 17 GM PACK PO PRN (18:30)
[2017-11-06] MEDS ORDERED: ACETAMINOPHEN 325 MG TAB PO PRN (18:30)
[2017-11-06] MEDS ORDERED: MAGNESIUM HYDROXIDE SUSP 30 ML UDC PO PRN (18:30)
[2017-11-06] MEDS ORDERED: ONDANSETRON INJ 2 MG/ML 2 ML VIAL IV PRN (18:30)
--- NOTE | 2017-11-06 18:55 | History and Physical ---
History & Physical Date & Time of Service: Nov 06, 2017 at 17:43 Chief Complaint: Trouble Breathing Primary Care Physician: Christofer Hanley DO History of Present Illness Source: patient, hospital records 61-year-old male with a complex medical history including morbid obesity, right- sided CHF, CAD, chronic lower extremity cellulitis, chronic atrial fibrillation , severe ALLIE, COPD, insulin-dependent diabetes, chronic AF. Multiple admissions for COPD and CHF exacerbations. He was admitted 10/15/17 - 10/21 for a COPD exacerbation. Presents with progressive SOB over the past few days and reports a productive cough and hemoptysis as well. States he is having some blood- streaked sputum and occasionally coughs up clots. Denies fevers, CP, N/V, diarrhea or dysuria. Initial labs represent baseline values and a CXR is non- diagnostic. 02 requirement has increased - required 10L to maintain an adequate sat on arrival to the ER. Past Medical/Surgical History PAST MEDICAL HISTORY: 1. Right-sided CHF/cor pulmonale, multiple admission for volume overload. 2. COPD. 3. 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 The patient uses CPAP and 6 liters O2 at bedtime. 4. Chronic atrial fibrillation. 5. Insulin-dependent diabetes. He takes a very high dose of insulin 6. Chronic recurrent cellulitis of the lower extremities. 7. Morbid obesity. 8. CAD. 9. Chronic lower extremity edema. 10. Hyperlipidemia. 11. Chronic hyponatremia. 12. Chronic lactic acidosis. Surgical: Tracheostomy Family History Diabetes mellitus Heart disease Hypertension Social History Smoking Status: Former Smoker Drug Use: none Marital Status: Housing status: lives with family Occupational Status: unemployed Immunizations History of Influenza Vaccine: Yes History of Pneumococcal: Yes Allergies Coded Allergies: [place] (Verified Allergy, Severe, Difficulty breathing, 10/15/17) Sodium Hypochlorite (Verified Allergy, Unknown, HIVES AND RESPIRATORY DIFFICULTY FROM CLOROX, 10/15/17) Home Medications Scheduled Amoxicillin & Pot Clavulanate (Augmentin 875-125 mg), 1 TAB PO BID Aspirin (Aspirin 81), 81 MG PO DAILY Atorvastatin (Lipitor), 80 MG PO DAILY Beclomethasone Dipropionate (N (Qnasl), 1 SPRY SIMBA DAILY Bumetanide (Bumetanide), 2 MG PO QAM Desloratadine (Clarinex), 5 MG PO DAILY Dextromethorphan-Guaifenesin (Mucinex Dm Maximum Streng), 1 TAB PO BID Diltiazem Hcl (Diltiazem Hcl Er), 1 CAP PO DAILY Dorzolamide Hcl (Trusopt Oph), 1 DROPS OP BID Fish Oil ([place]-3), 1 CAP PO DAILY Fluticasone Furoate (Inhalatio (Arnuity Ellipta), 1 PUFF INH DAILY Glucagon (Glucagon Emergency Kit), 1 DOSE INJ UD Guaifenesin (Mucinex Maximum Strength), 1,200 MG PO BID Insulin Aspart (Novolog Flexpen), 100 UNITS SQ BREAKFAST Insulin Aspart (Novolog Flexpen), 70 UNITS SC LUNCH Insulin Aspart (Novolog Flexpen), 95 UNITS SC DINNER Insulin Glargine (Lantus Solostar), 118 SC QAM Insulin Glargine (Lantus Solostar), 115 SC QPM Ipratropium-Albuterol (Duoneb), 1 TREATMENT INH Q4H Isosorbide Mononitrate (Isosorbide Mononitrate ER), 30 MG PO DAILY Latanoprost (Xalatan 0.005% Oph Vanessa), 1 DROPS OP HS Lisinopril (Zestril), 10 MG PO DAILY Magnesium Oxide (Mag-Ox), 400 MG PO TID Metolazone (Zaroxolyn), 5 MG PO DAILY Metoprolol Tartrate (Lopressor) (Lopressor), 25 MG PO BID Multivitamins/Minerals (Mvi With Minerals), 1 TAB PO DAILY Nitroglycerin (Nitrostat), 1 TAB SL UD Potassium Ext Rel (Klor-Con), 3 TAB PO BID Rivaroxaban (Xarelto), 20 MG PO DAILY Sodium Chloride (Sodium Chloride), 1 GM PO DAILY Spironolactone (Aldactone), 25 MG PO BID Scheduled PRN Albuterol Hfa (Ventolin Hfa), 1 PUFFS INH QID PRN for SOB/Wheezing Lorazepam (Lorazepam), 1 MG PO QID PRN for Anxiety Miconazole Nitrate (Desenex Shake Powder), 1 APPLN EXT BID PRN for ABDOMINAL/ GROIN FOLDS Tramadol (Ultram), 50 MG PO Q8H PRN for Pain Review of Systems Constitutional: No fever, No chills, No sweats Eyes: No worsening of vision ENT: No hearing loss, No unusual epistaxis, No nasal symptoms Respiratory: + cough, + sputum, + wheezing, + hemoptysis Cardiovascular: No chest pain, No orthopnea, No PND Abdomen: No pain, No nausea, No vomiting Musculoskeletal: No joint pain Genitourinary - Male: No hematuria, No dysuria Neurologic: No memory loss, No paralysis, No weakness Psychiatric: No depression symptoms Endocrine: No fatigue Hematologic / Lymphatic: No abnormal bleeding/bruising Integumentary: No rash Allergic / Immunologic: No environmental allergies Physical Exam Vital Signs Date Time Temp Pulse Resp B/P (MAP) Pulse Ox O2 Delivery O2 Flow Rate FiO2 11/06/17 16:50 82 24 128/80 92 Room Air 30 11/06/17 15:54 75 24 163/85 95 Trach Collar 30 11/06/17 15:14 60 22 94 Room Air 11/06/17 15:12 94 Room Air 11/06/17 15:12 94 Room Air 11/06/17 15:10 85 11/06/17 14:17 36.9 82 22 132/64 95 Room Air General Appearance: + pertinent finding (Shirtless, morbidly obese, middle- aged male - breathing is labored with some stridor) Head: normocephalic Eyes: normal inspection, EOMI ENT: normal ENT inspection, + pertinent finding (Tracheostomy in place) Neck: + pertinent finding (Cannot evaluate for JVD) Respiratory/Chest: chest non-tender, + pertinent finding (CRackles at bases BL - end exp wheezing - limited exam) Cardiovascular: + pertinent finding (Faint heart sounds appear regular) Abdomen/GI: + pertinent finding (Morbidly obese - may have candidal infection over lower abdomen) Back: normal inspection, no CVA tenderness Extremities/Musculoskelatal: normal inspection, + pedal edema, + swelling ( Chronic stasis chmages - no overt cellulitis - possible fungal colonization of skin ) Neurologic/Psych: chief design drafter II-XII nml as tested, no motor/sensory deficits, alert, oriented x 3 Skin: + pertinent finding (Fungal colonization is noted on lower abdomen, lower extremities - stasis chnages as above - LE erythema which is chronic) Diagnostics Laboratory Results Results Past 24 Hours Test 11/06/17 15:40 Range/Units White Blood Count 8.54 4.8-10.8 K/uL Red Blood Count 4.33 4.7-6.1 M/uL Hemoglobin 12.7 14.0-18.0 g/dL Hematocrit 36.7 42-52 % Mean Corpuscular Volume 84.8 80-100 fL Mean Corpuscular Hemoglobin 29.3 25-34 pg Mean Corpuscular Hemoglobin Concent 34.6 32-36 g/dl Platelet Count 119 130-400 K/uL Mean Platelet Volume 10.4 7.4-10.4 fL Neutrophils (%) (Auto) 78.0 % Lymphocytes (%) (Auto) 15.2 % Monocytes (%) (Auto) 5.6 % Eosinophils (%) (Auto) 0.6 % Basophils (%) (Auto) 0.2 % Neutrophils # (Auto) 6.66 1.4-6.5 K/uL Lymphocytes # (Auto) 1.30 1.2-3.4 K/uL Monocytes # (Auto) 0.48 0.11-0.59 K/uL Eosinophils # (Auto) 0.05 0-0.5 K/uL Basophils # (Auto) 0.02 0-0.2 K/uL RDW Standard Deviation 45.9 36.4-46.3 fL RDW Coefficient of Variation 14.7 11.5-14.5 % Immature Granulocyte % (Auto) 0.4 % Immature Granulocyte # (Auto) 0.03 0.00-0.02 K/uL Prothrombin Time 12.8 9.0-12.0 SECONDS Prothromb Time International Ratio 1.2 0.9-1.1 Activated Partial Thromboplast Time 27.0 21.0-31.0 SECONDS Partial Thromboplastin Ratio 1.0 Sodium Level 129 136-145 mmol/L Potassium Level 3.7 3.5-5.1 mmol/L Chloride Level 92 98-107 mmol/L Carbon Dioxide Level 34 21-32 mmol/L Anion Gap 3.0 3-11 mmol/L Blood Urea Nitrogen 18 7-18 mg/dl Creatinine 0.93 0.60-1.40 mg/dl Est Creatinine Clear Calc Drug Dose 151.9 ml/min Estimated GFR () 101.6 Estimated GFR (Non- 87.7 BUN/Creatinine Ratio 18.8 10-20 Random Glucose 164 70-99 mg/dl Calcium Level 8.8 8.5-10.1 mg/dl Total Creatine Kinase 79 39-308 U/L Troponin I < 0.015 0-0.045 ng/ml Pro-B-Type Natriuretic Peptide 280 0-900 pg/ml Diagnostic Radiology New new findings are reported on CXR EKG AF - rate controlled - no evidence of acute ischemia Impression Assessment and Plan 61-year-old male with a complex medical history including morbid obesity, right- sided CHF, CAD, chronic lower extremity cellulitis, chronic atrial fibrillation , severe ALLIE, COPD, insulin-dependent diabetes, chronic AF. Multiple admissions for COPD and CHF exacerbations. He was admitted 10/15/17 - 10/21 for a COPD exacerbation. Presents with progressive SOB over the past few days and reports a productive cough and hemoptysis as well. States he is having some blood- streaked sputum and occasionally coughs up clots. Denies fevers, CP, N/V, diarrhea or dysuria. Initial labs represent baseline values and a CXR is non- diagnostic. 02 requirement has increased - required 10L to maintain an adequate sat on arrival to the ER. 1) Hypoxic respiratory failure - acute on chronic - productive cough and hemoptysis present with high 02 requirements. Placed on Nebs, 02, steroids for presumed COPD exacerbation. The pt was unable to tolerate a CT due to anxiety. We will try again AM. There is less concern for PE, as he takes daily Xarelto, than for PNM which would be classified as HCAP. Initially placed on Zosyn and Levaquin. Pulmonary consult has been requested and has Xarelto is held due to hemoptysis. The hemoptysis itself, however, may be the result of Xarelto and a persistent cough. 2) CHF - chronic cor pulmonale - we cannot accurately gauge his volume status clinically due to his habitus. His BNP is also not reliable due to morbid obesity. He exhibits crackles at the lung bases BL and considering his hypoxia we will provide an additional dose of IV Bumex, monitor I/O and daily weights. Cont Imdur, Bblocker, TD NTG placed 3) AF - rate is controlled - Xarelto is held due to hemoptysis - we will continue Diltiazem and Metoprolol. 4) DM - remains on his home baseline dose due to high insulin requirements. Supplemented with a SS. 5) CAD - no evidence of ACS on CAD and initial labs - cont ASA, Statin, B roberta, Imdur 6) ALLIE - CPAP ordered HS 7) Morbid obesity - the pt is in desperate need of a weight loss regimen and shoud be counseled by nutrition with family present prior to DC. Full code - anticoagulation held due to hemoptysis Total time for this admit including review of labs, meds, records, imaging, EKG - discussion with pt, son and ER attending - 52 min Resuscitation Status VTE Prophylaxis Will order VTE Prophylaxis: No Reason for no VTE drug order: Contraindicated Reason no Mechanical VTE Order: Contraindicated
[2017-11-06] MEDS ORDERED: NITROGLYCERIN 2% OINTMENT 30GM TUBE EXT STA (18:56)
[2017-11-06] MEDS ORDERED: GLUCAGON FOR INJ 1 MG VIAL SQ PRN (19:15)
[2017-11-06] MEDS ORDERED: DEXTROSE 50% 50 ML SYR IV PRN (19:15)
[2017-11-06] MEDS ORDERED: GLUCOSE 40% GEL 15 GM TUBE PO PRN (19:15)
[2017-11-06] MEDS ORDERED: GLUCOSE 10 TABS/TUBE PO PRN (19:15)
[2017-11-06 19:35] VITALS: BP 170/79; PULSE 77; TEMP 36.8; O2SAT 96; BMI 65.5
[2017-11-06] MEDS: ALBUT/IPRATROP 3MG/0.5MG NEB 3 ML VIAL INH SCH (19:39)
[2017-11-06 19:40] VITALS: PULSE 78; O2SAT 95
[2017-11-06] MEDS ORDERED: INSULIN ASPART 100 UNITS/ML VIAL SC ONE (19:45)
[2017-11-06] MEDS ORDERED: PIPERACILL/TAZOBAC IV 4.5 GM in SODIUM CHLORIDE 0.9% 100ML 100 ML IV ONE (19:45)
[2017-11-06] MEDS ORDERED: ARNUITY~ORDER AWAITING ACTION SCH (20:15)
[2017-11-06] MEDS: METHYLPREDNISOLONE IV 60 MG in SYRINGE 0 ML IV SCH (20:46)
[2017-11-06] MEDS: LEVOFLOXACIN / D5W 750 MG in PREMIXED IN D5W 150 ML IV SCH (20:47)
[2017-11-06] MEDS: LATANOPROST 0.005% OP SOLN 2.5 ML BTL OP SCH (20:48)
[2017-11-06] MEDS: DORZOLAMIDE HCL 2% OPH SOLN 10 ML BTL OP SCH (20:48)
[2017-11-06] MEDS: INSULIN GLARGINE SC SCH (20:55)
[2017-11-06 21:00] VITALS: O2SAT 96
[2017-11-06] MEDS ORDERED: INSULIN ASPART 100 UNITS/ML 3 ML PEN SC SCH (21:00)
[2017-11-06] MEDS: POTASSIUM CHLORIDE 20 MEQ TABCR PO SCH (21:00)
[2017-11-06] MEDS: METOPROLOL TARTRATE 25 MG TAB PO SCH (21:00)
[2017-11-06] MEDS: TRAMADOL HCL 50 MG TAB PO PRN (21:04)
[2017-11-06] MEDS: CLARINEX~ORDER AWAITING ACTION SCH ×2 (21:05→23:20)
[2017-11-06] MEDS: LORAZEPAM 1 MG TAB PO PRN (21:05)
[2017-11-06] MEDS: MUCINEX DM~ORDER AWAITING ACTION SCH ×2 (21:05→23:20)
[2017-11-06] MEDS: MAGNESIUM OXIDE 400 MG TAB PO SCH (21:08)
[2017-11-06 21:10] VITALS: BP 124/63; PULSE 57
[2017-11-06] MEDS ORDERED: NURSING VERBAL MED ORDER ONE (21:30)
[2017-11-06] MEDS ORDERED: GUAIFENESIN 600 MG TABCR PO ONE (21:45)
[2017-11-07] VITALS (10 sets, daily range): BP systolic 108–147; BP diastolic 62–81; PULSE 68–99; TEMP 36.4–37.3; O2SAT 92–97; Ht 180.3 cm; Wt 205.1 kg
[2017-11-07] MEDS: ALBUT/IPRATROP 3MG/0.5MG NEB 3 ML VIAL INH SCH ×4 (01:45→19:01)
[2017-11-07] MEDS: METHYLPREDNISOLONE IV 60 MG in SYRINGE 0 ML IV SCH ×4 (02:01→21:34)
[2017-11-07] MEDS: PIPERACILL/TAZOBAC IV 4.5 GM in SODIUM CHLORIDE 0.9% 100ML 100 ML IV SCH ×3 (02:03→17:43)
[2017-11-07 07:22] LABS: HEMATOCRIT 38.5 % (42-52); HEMOGLOBIN 13.1 g/dL (14.0-18.0); MEAN CELL VOLUME 85.2 fL (80-100); MEAN PLATELET VOLUME 10.7 fL (7.4-10.4); PLATELET COUNT 130 K/uL (130-400); RED CELL DISTRIBUTION WIDTH CV 14.8 % (11.5-14.5); RED CELL DISTRIBUTION WIDTH SD 45.9 fL (36.4-46.3); WHITE BLOOD COUNT 8.39 K/uL (4.8-10.8)
[2017-11-07] MEDS: METOLAZONE 5 MG TAB PO SCH (07:43)
[2017-11-07] MEDS: INSULIN ASPART 100 UNITS/ML VIAL SQ SCH (07:48)
[2017-11-07] MEDS: CLARINEX~ORDER AWAITING ACTION SCH (07:56)
[2017-11-07] MEDS: MUCINEX DM~ORDER AWAITING ACTION SCH (07:56)
[2017-11-07 07:57] LABS: CALCIUM 8.9 mg/dl (8.5-10.1); POTASSIUM 4.3 mmol/L (3.5-5.1)
--- NOTE | 2017-11-07 08:12 | Clinical Documentation Query ---
CLINICAL DOCUMENTATION QUERY 62-y/o male who presents to the Emergency Room with complaints of an acute worsening of his chronic breathing difficulties. H&P states possible HCAP. HCAP is defined as category of pneumonia in individuals with recent close contact with the healthcare system (hospital, Shelter, extended care facility, cancer treatment center, dialysis center, outpatient surgery center). HCAP is more likely to be caused by bacteria resistant to first line antibiotics. By specifying suspected organism the antibiotics are aimed at will better specify diagnosis and may add Severity of Illness (SOI). In your clinical opinion is this patient being managed for: ( ) Suspected Leana Negative/Legionella pneumonia in setting of HCAP treated with IV IV Zosyn and Levofloxacin ( x ) Not Agree ( ) Other explanation of clinical findings (Please Explain) ( ) Unable to determine (Please Define) ( ) Need to Discuss The medical record reflects the following clinical findings, treatment, and risk factors. Clinical Indicators: HCAP, respiratory failure, + cough, + sputum, + wheezing Treatment: O2, IV Solumedrol, IV Zosyn, IV Levofloxacin, Duonebs, Risk Factors: Tracheostomy status, COPD, recent healthcare facility contacts. Please clarify and document your clinical opinion in the progress notes and discharge summary. Terms such as "probable", "suspected", "likely", "questionable", "possible", or "still to be ruled out" are acceptable. IF IN AGREEMENT, YOU MUST DOCUMENT ABOVE DIAGNOSTIC STATEMENT IN DAILY PROGRESS NOTES AND DISCHARGE SUMMARY. This document is not part of the patient's record. Thank You, Ronny Calle, REED [phone]
[2017-11-07] MEDS ORDERED: INSULIN GLARGINE SC SCH (09:00)
[2017-11-07] MEDS ORDERED: GUAIFENESIN 600 MG TABCR PO SCH ×2 (09:00→11:30)
[2017-11-07] MEDS ORDERED: FLUTICASONE FUROATE INH SCH (09:00)
[2017-11-07] MEDS: DORZOLAMIDE HCL 2% OPH SOLN 10 ML BTL OP SCH ×2 (09:21→21:31)
[2017-11-07] MEDS: QNASL INH SCH (09:23)
[2017-11-07] MEDS: POTASSIUM CHLORIDE 20 MEQ TABCR PO SCH ×2 (09:24→21:29)
[2017-11-07] MEDS: BUMETANIDE 1 MG TAB PO SCH (09:25)
[2017-11-07] MEDS: SODIUM CHLORIDE 1 GM TAB PO SCH (09:25)
[2017-11-07] MEDS: DILTIAZEM HCL 120 MG ER CAP PO SCH (09:25)
[2017-11-07] MEDS: ASPIRIN 81 MG ECTAB PO SCH (09:25)
[2017-11-07] MEDS: METOPROLOL TARTRATE 25 MG TAB PO SCH ×2 (09:26→21:30)
[2017-11-07] MEDS: LISINOPRIL 10 MG TAB PO SCH (09:26)
[2017-11-07] MEDS: MAGNESIUM OXIDE 400 MG TAB PO SCH ×3 (09:26→21:30)
[2017-11-07] MEDS: ISOSORBIDE MONONITRATE 30 MG TABCR PO SCH (09:26)
[2017-11-07] MEDS: SPIRONOLACTONE 25 MG TAB PO SCH ×2 (09:26→16:43)
[2017-11-07] MEDS ORDERED: LORATADINE 10 MG TAB PO ONE (10:45)
--- NOTE | 2017-11-07 12:11 | Hospitalist Progress Note ---
Hospitalist Progress Note Date of Service Nov 07, 2017. ([place], [place]) Subjective Pt evaluation today including: conversation w/ patient, physical exam, chart review, lab review, review of studies, conversation w/ human resource consultant Pain: None PO Intake: Good Voiding: no voiding problems The patient was seen and examined this morning. Pt reports feeling "horrible" today. The patient notes that his breathing is no different today compared to yesterday. Patient is coughing hemoptysis through the trach tube. Reports that this is much less compared to hemoptysis experienced in the past 5-7 days. He got an extra dose of Bumex last night and feels that he is not as swollen as he has been on prior to admission. The patient has not been using oxygen unless he "really needs it" at home and wears anywhere from 4-6 L over the trach when he gets acutely short of breath. He cannot wear CPAP due to claustrophobia. The patient does use Ativan for anxiety attacks, which he gets approximately once a day and then also uses Ativan before he goes to sleep at night. Throughout the night he is waking up 3-4 times. Social Hx: He lives with his , daughter, son-in-law and their 3 children who are all under the age of 10. He reports that they are a main support/stress relief/ driving factor for his improved mood. 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 A long discussion was held regarding stress factors and social support at home with his hx of depression. 1 of his main stressors as his other daughter who does not live with him as she is currently recovering from drug addiction. His insurance also recently tried to revoke his oxygen and take away his machine from his home. Patient notes that approximately 3 months ago he had been started on an antidepressant during his last hospital stay -which he cannot recall the name of and took it for about 3 weeks. During that time he felt no changes in mood in the first week, the second week started to improve mood, then the third week he developed severe suicidal and homicidal ideations. He stopped taking this medication on his own and did not wean off of it. He was fearful at that time that he himself would commit suicide and felt that his family was also at risk. He does have fire arms in the home. His plan would include suicide by gun fire. When asked about other plans of suicidal ideation he states "I have 100 of them". The patient notes that at that time he sought counseling, however it cost him approximately $100 per session and is unaffordable. He has no intention of trying another psychiatric medication at this time due to adverse effects . He does have a helpline/ crisis phone number on hand. He denies current suicidal and homicidal ideations. Additional Comments: Constitutional: No fever, sweats or chills Eyes: No diplopia, no worsening or blurred vision ENT: normal hearing, no trouble swallowing Respiratory: See HPI. Cardiovascular: No chest pain, tightness or palpitations Abdomen: No pain, nausea, vomiting, diarrhea or constipation Musculoskeletal: No joint pain, calf pain, swelling Neurologic: No weakness, numbness/tingling, or balance problems Psychiatric: No anxiety or depression Skin: No rash or itch ([place], [place]) Objective Vital Signs Date Time Temp Pulse Resp B/P (MAP) Pulse Ox O2 Delivery O2 Flow Rate FiO2 11/07/17 11:35 36.6 79 20 125/68 (87) 95 Trach Collar 28 11/07/17 07:24 36.9 93 18 114/81 (92) 94 11/07/17 07:17 77 24 97 Room Air 11/07/17 05:13 36.4 96 20 108/64 (79) 94 Trach Collar 11/07/17 04:00 Room Air 30 11/07/17 01:45 74 24 97 Room Air 11/07/17 00:09 37.3 84 18 139/62 (87) 95 Trach Collar 11/07/17 00:00 Room Air 30 11/06/17 21:10 57 124/63 (83) 11/06/17 21:00 96 Room Air 30 11/06/17 19:40 78 18 95 Room Air 11/06/17 19:35 36.8 77 170/79 96 Trach Collar 30 11/06/17 19:00 75 22 171/84 97 11/06/17 18:32 75 22 171/84 97 Room Air 30 11/06/17 16:50 82 24 128/80 92 Room Air 30 11/06/17 15:54 75 24 163/85 95 Trach Collar 30 11/06/17 15:14 60 22 94 Room Air 11/06/17 15:12 94 Room Air 11/06/17 15:12 94 Room Air 11/06/17 15:10 85 11/06/17 14:17 36.9 82 22 132/64 95 Room Air (Flor [place] PA-C) Physical Exam Notes: General: awake, alert, no apparent distress, morbidly obese, BMI= 64.9 Head: Normocephalic, atraumatic ENT: PERRL, EOMI, no pharyngeal exudate, mucous membranes moist, tracheostomy in place, on 4 L via NC Chest: Clear to auscultation, on 4L, no wheezing rales or rhonchi. Cardiac: Regular rate and rhythm, +soft systolic murmur, JVD difficult to assess due to body habitus, normal peripheral pulses, good capillary refill Abdominal: NABS x 4 quadrants, soft, nontender to palpation Extremities: Right lower extremity with chronic venous stasis changes, skin is extremely dry/scaling, 2+ pitting edema in BLE, calfs nontender to palpation, possible fungal infection over the right lower extremity surrounding toes. Skin: Erythematous underlying pannus, + fungal involvement Psych: Normal mood and affect Neuro: AAO x 3, no motor deficits, speech is clear, no peripheral sensory deficits ([place], [place]) Laboratory Results Last 24 Hours Test 11/06/17 15:40 11/06/17 19:39 11/07/17 01:22 11/07/17 04:41 White Blood Count 8.54 K/uL Red Blood Count 4.33 M/uL Hemoglobin 12.7 g/dL Hematocrit 36.7 % Mean Corpuscular Volume 84.8 fL Mean Corpuscular Hemoglobin 29.3 pg Mean Corpuscular Hemoglobin Concent 34.6 g/dl Platelet Count 119 K/uL Mean Platelet Volume 10.4 fL Neutrophils (%) (Auto) 78.0 % Lymphocytes (%) (Auto) 15.2 % Monocytes (%) (Auto) 5.6 % Eosinophils (%) (Auto) 0.6 % Basophils (%) (Auto) 0.2 % Neutrophils # (Auto) 6.66 K/uL Lymphocytes # (Auto) 1.30 K/uL Monocytes # (Auto) 0.48 K/uL Eosinophils # (Auto) 0.05 K/uL Basophils # (Auto) 0.02 K/uL RDW Standard Deviation 45.9 fL RDW Coefficient of Variation 14.7 % Immature Granulocyte % (Auto) 0.4 % Immature Granulocyte # (Auto) 0.03 K/uL Prothrombin Time 12.8 SECONDS Prothromb Time International Ratio 1.2 Activated Partial Thromboplast Time 27.0 SECONDS Partial Thromboplastin Ratio 1.0 Sodium Level 129 mmol/L Potassium Level 3.7 mmol/L Chloride Level 92 mmol/L Carbon Dioxide Level 34 mmol/L Anion Gap 3.0 mmol/L Blood Urea Nitrogen 18 mg/dl Creatinine 0.93 mg/dl Est Creatinine Clear Calc Drug Dose 151.9 ml/min Estimated GFR () 101.6 Estimated GFR (Non- 87.7 BUN/Creatinine Ratio 18.8 Random Glucose 164 mg/dl Calcium Level 8.8 mg/dl Total Creatine Kinase 79 U/L Troponin I < 0.015 ng/ml Pro-B-Type Natriuretic Peptide 280 pg/ml Bedside Glucose 136 mg/dl 345 mg/dl Urine Color YELLOW Urine Appearance CLEAR Urine pH 8.5 Urine Specific [place] 1.020 Urine Protein NEG Urine Glucose (UA) NEG Urine Ketones NEG Urine Occult Blood NEG Urine Nitrite NEG Urine Bilirubin NEG Urine Urobilinogen NEG Urine Leukocyte Esterase NEG Test 11/07/17 07:03 11/07/17 07:21 White Blood Count 8.39 K/uL Red Blood Count 4.52 M/uL Hemoglobin 13.1 g/dL Hematocrit 38.5 % Mean Corpuscular Volume 85.2 fL Mean Corpuscular Hemoglobin 29.0 pg Mean Corpuscular Hemoglobin Concent 34.0 g/dl RDW Standard Deviation 45.9 fL RDW Coefficient of Variation 14.8 % Platelet Count 130 K/uL Mean Platelet Volume 10.7 fL Sodium Level 128 mmol/L Potassium Level 4.3 mmol/L Chloride Level 92 mmol/L Carbon Dioxide Level 29 mmol/L Anion Gap 7.0 mmol/L Blood Urea Nitrogen 17 mg/dl Creatinine 1.00 mg/dl Est Creatinine Clear Calc Drug Dose 140.3 ml/min Estimated GFR () 93.1 Estimated GFR (Non- 80.3 BUN/Creatinine Ratio 16.7 Random Glucose 297 mg/dl Calcium Level 8.9 mg/dl Magnesium Level 1.9 mg/dl Bedside Glucose 286 mg/dl ([place], [place]) Assessment and Plan 61 yo M wtih with a complex PMHx including morbid obesity, right-sided CHF, CAD , chronic lower extremity cellulitis, chronic atrial fibrillation, severe ALLIE, COPD, insulin-dependent diabetes, chronic AF. Multiple admissions for COPD and CHF exacerbations. He was admitted 10/15/17 - 10/21 for a COPD exacerbation. Presents with progressive SOB over the past few days and reports a productive cough and hemoptysis as well. States he is having some blood-streaked sputum and occasionally coughs up clots. Denies fevers, CP, N/V, diarrhea or dysuria. Initial labs represent baseline values and a CXR is non-diagnostic. 02 requirement has increased - required 10L to maintain an adequate sat on arrival to the ER. Acute on chronic hypoxic respiratory failure COPD exacerbation - productive cough and hemoptysis present with high 02 requirements. - Continue duoNebs, 02, solumedrol 60 mg Q6H, mucinex, incentive spirometry, flutter - Started on Zosyn and Levaquin (11/06) - Pulmonary consulted - The pt was unable to tolerate a CT due to anxiety. Reattempt today There is less concern for PE, as he takes daily Xarelto, than for PNM which would be classified as HCAP. - Hold xarelto due to hemoptysis. The hemoptysis itself, however, may be the result of Xarelto and a persistent cough. - Pt consented for MID/PICC line today due to significantly poor venous access Acute CHF chronic cor pulmonale - Difficult to assess volume status due to body habitus - His BNP is also not reliable due to morbid obesity. - Given IV Bumex at time of admission, continue home Bumex 2 PO QAM, strict I/Os , daily weights - Cont Imdur 30 mg daily, diltiazem ER 100 mg daily, lisinopril 10 mg daily, metoprolol tartrate 25 BID, metolazone 5 mg daily, spironolactone 25 mg BID, TD NTG placed AF - rate is controlled - Xarelto is held due to hemoptysis - we will continue Diltiazem and Metoprolol DM - remains on his home baseline dose due to high insulin requirements: Lantus 100 U with breakfast, 70 with lunch, 95 at dinner and 110 at bedtime - ISS with accuchecks achs CAD - no evidence of ACS on CAD and initial labs - cont ASA, Statin, B roberta, Imdur as above ALLIE - CPAP ordered HS Morbid obesity - the pt is in desperate need of a weight loss regimen and shoud be counseled by nutrition with family present prior to DC. Major depressive disorder, recurrent, partially in remission TREV Hx panic attack - See HPI. Pt with hx of suicidal and homicidal ideation however denies current ideations.- pt is unwilling to initiate any type of antidepressant at this time. Previous episode of significant SI/HI occurred with fluoxetine 20 mg around the 3rd week of treatment which was given after hospital stay in Jul 2017. If pt becomes agreeable to trial of med - would choose zoloft 25 mg daily first, and increase if any improvement in mood to 50 mg after first 2 weeks. Another option may be cymbalta with as this may help with some of his chronic pain as well. Ultimately I think he would get most benefit from Trintellix 10 mg starting dose - however try other agents first to prove inadequate response for insurance purposes Will continue to assess - Counseling was previously unaffordable for him - may ask CM to look into more affordable services. - Does not see a psychiatrist outpatient. Gets ativan from pulmonology per his report. Will encourage pt to have outpatient psych follow up prior to discharge , currently in house psychiatry not warranted as he is not having SI/HI. - Caution with ativan 1 mg QID for anxiety and chronic respiratory issues but continue for anxiety/claustrophobia. DVT ppx: - anticoagulation held due to hemoptysis CODE STATUS: Full code Disposition: From home, CM to assist with dc planning. Time spent reviewing chart, face to face time with patient, discussion with consultants and communication involved 70 minutes. ([place] PA-C) Attending Attestation - Pt seen/examined, chart reviewed, care plan d/w PETE [place]. I agree w/ the jerez components of her documentation. Pt states he feels exhausted. States hemoptysis is worse, but staff report it is stable and mainly blood streaked when he has sputum mixed w/ blood. Feels very dyspneic. Tele stable. Again admits to severe depression. VSS afebrile o2 sats acceptable gen - morbidly obese, no distress neck - unable to assess for JVD heart - irregular, heart tones distant lungs - minimal wheeze b/l, decreased BS bases abd - obese, NT ext - stasis changes RLE; 1+ edema b/l FSBS > 200 A/P: 1. COPD w/ exacerbation 2. hemoptysis in setting of systemic anticoagulation use 3. acute/chronic hypoxic resp failure 4. major depression w/ prior suicidal ideation 5. uncontrolled T2DM 2nd to steroids 6. chronic diastolic CHF 7. rate-controlled a. fib cont to hold xarelto no obvious pneunonia on imaging - remains on broad-spectrum IV abx; check procalcitonin in AM; consider narrowing spectrum of abx tomorrow psych consult for MDD titrate correction factor to 3 for high blood sugars cont steroids for #1 bronch on Friday for #2 Abdi MCCRACKEN MD (Homer Mccracken MD)
[2017-11-07] MEDS: INSULIN ASPART 100 UNITS/ML VIAL SC SCH ×5 (12:58→21:50)
[2017-11-07] MEDS: LORAZEPAM 1 MG TAB PO PRN ×2 (14:17→21:28)
--- NOTE | 2017-11-07 16:31 | Pulmonary Consultation ---
History General Date of Service: Nov 07, 2017. Stated Complaint: Acute Respiratory Failure, Hemoptysis HPI The patient is a 62 year old male who presents to [facility] with complaints of Acute Respiratory Failure, Hemoptysis. The patient's primary care provider is Chirstofer Hanley DO. The patient is well-known to Dr. Evans service and in fact was seen by Dr. Evans on October 16, 2017. The patient has acute on chronic respiratory failure secondary to ALLIE requiring tracheostomy, recurrent tracheal infections, atrial fibrillation treated with Xarelto, as well as other comorbidities. The patient is morbidly obese and has not been unable to lose any weight. Over the last several months the patient has had hemoptysis with blood on the tip of his trachea. This is been very concerning to the patient and his . Microbiology history is as below. Pulmonary function studies are as below. Patient is oxygenating well and denies any chest pain or tightness. He continues to have a nonproductive cough for most of the time but when he does have cough is with yellowish to green sputum from his trachea. He has had no problems with the trachea being cleared and patient is able to decannulate himself and manages on trach. He has had some periods of clotting of blood on the tip of his trach which he feels may be have been impeding his breathing. Is unclear whether this blood is from the trachea or from the nose. With his previous bronchoscopy this past admission there was no evidence of bleeding in the lungs or the the airways. As the patient is well-known to Dr. Evans, I did speak with him and at this point we will move forward with general anesthesia with bronchoscopy on Friday. Microbiology history Sputum/tracheal suction 07/15/2016: Moraxella catarrhalis/MRSA Blood 05/03/2016: Group B beta strep Right lower extremity 04/03/2016: Coag-negative staph/corynebacterium bacterium Sputum/trachea 12/10/2015: Moraxella catarrhalis Sputum/trachea 09/27/2015: strep pneumonia 09/27/2015 (diffuse resistance pattern) Blood 09/27/2015: Strep pneumonia (diffuse resistance pattern) Bronchial washing 08/29/2015: Yeast not Kimber albicans and/cryptococcus neofor Pulmonary function studies 06/02/2014 Pre post %Sloan FEV1/FVC 67 FEV1 2.07/53 % 2.34/60 % 13 FVC 3.07/63 % 3.14/64 % 2 VC 3.07/63 % TLC 2.47/99 % RV/TLC >45 DLCO 69 % DL/VA 139 % Historian: patient, other (Dr. Evans) Review of Systems A total of 12 systems was reviewed and is negative other than as listed above in the HPI All Other Symptoms All Other Systems: Reviewed and Negative Past Medical History Past Medical History: Medical Problems: (1) Acute respiratory failure (2) Cellulitis (3) Cellulitis and abscess of leg (4) CHF exacerbation (5) COPD (chronic obstructive pulmonary disease) (6) COPD exacerbation (7) Diabetes (8) Diabetes mellitus type 2 in obese (9) Dyspnea (10) Fever chills (11) HCAP (healthcare-associated pneumonia) (12) Hemoptysis (13) History of CHF (congestive heart failure) (14) Hyperlipidemia (15) Hyponatremia (16) Morbid obesity (17) PNA (pneumonia) (18) Sepsis due to Streptococcus pneumoniae (19) SOB (shortness of breath) Past Surgical History: Surgical Problems: (1) Tracheostomy in place Bronchoscopy Cardiac history of CABG and stents Family History Diabetes mellitus Heart disease Hypertension Parent: Asthma, Heart Disease, Other Social History Hx Tobacco Use In Past Year?: No Smoking Status: Former Smoker Drug Use: none Marital status: Housing status: lives with family Occupational Status: unemployed Immunizations History of Influenza Vaccine: Yes History of Pneumococcal: Yes History of MDRO History of MDRO: Yes Type of MDRO: MRSA Allergies Coded Allergies: [place] (Verified Allergy, Severe, Difficulty breathing, 10/15/17) Sodium Hypochlorite (Verified Allergy, Unknown, HIVES AND RESPIRATORY DIFFICULTY FROM CLOROX, 10/15/17) Current Medications Reported Home Medications Medications Dose Route/Sig Max Daily Dose Days Date Category Dose Instructions Mucinex Dm Maximum Streng (Dextromethorphan-Guaifenesin) 1 Tab Tab 1 Tab PO BID 10 11/06/17 Reported Augmentin 875-125 mg (Amoxicillin & Pot Clavulanate) 1 Tab Tab 1 Tab PO BID 11/06/17 Reported Desenex Shake Powder (Miconazole Nitrate) 43 Appln/43 Gm Powd 1 Appln EXT BID PRN 30 10/21/17 Rx Lantus Solostar (Insulin Glargine) 100 Unit/Ml Inj 115 SC QPM 10/15/17 Reported Lantus Solostar (Insulin Glargine) 100 Unit/Ml Inj 118 SC QAM 10/15/17 Reported Bumetanide 1 Mg Tab 2 Mg PO QAM 30 07/16/17 Rx Sodium Chloride 1 Gm Tab 1 Gm PO DAILY 07/12/17 Reported Lopressor (Metoprolol Tartrate) 25 Mg Tab 25 Mg PO BID 07/12/17 Reported Diltiazem Hcl Er (Diltiazem Hcl) 120 Mg Cap 1 Cap PO DAILY 07/12/17 Reported Arnuity Ellipta (Fluticasone Furoate (Inhalatio) 200 Mcg/Act Inh 1 Puff INH DAILY 07/12/17 Reported Zaroxolyn (Metolazone) 5 Mg Tab 5 Mg PO DAILY 07/12/17 Reported Klor-Con (Potassium Chloride) 20 Meq Tabcr 3 Tab PO BID 07/12/17 Reported Ultram (Tramadol HCl) 50 Mg Tab 50 Mg PO Q8H PRN 03/18/17 Reported Xalatan 0.005% Oph Vanessa (Latanoprost) 0.005 % Vanessa 1 Drops OP HS 11/14/16 Reported Ventolin Hfa (Albuterol) 200 Puffs/41618 Mcg Aers 1 Puffs INH QID PRN 10/28/16 Reported Mucinex Maximum Strength (Guaifenesin) 1,200 Mg Tab 1,200 Mg PO BID 07/15/16 Reported Novolog Flexpen (Insulin Aspart) 100 Units/Ml Inj 95 Units SC DINNER 07/15/16 Reported over 200 +4 over 250 +8 over 300 +10 Novolog Flexpen (Insulin Aspart) 100 Units/Ml Inj 70 Units SC LUNCH 07/15/16 Reported over 200 +4 over 250 +8 over 300 +10 Novolog Flexpen (Insulin Aspart) 100 Units/Ml Inj 100 Units SQ BREAKFAST 07/15/16 Reported over 200 +4 over 250 +8 over 300 +10 Qnasl (Beclomethasone Dipropionate (N) 80 Mcg/Act Aer 1 Stout SIMBA DAILY 07/15/16 Reported Aldactone (Spironolactone) 25 Mg Tab 25 Mg PO BID 07/15/16 Reported Glucagon Emergency Kit (Glucagon) 1 Mg Kit 1 Dose INJ UD 07/15/16 Reported Clarinex (Desloratadine) 5 Mg Tab 5 Mg PO DAILY 07/15/16 Reported Aspirin 81 (Aspirin) 81 Mg Tab 81 Mg PO DAILY 07/15/16 Reported Trusopt Oph (Dorzolamide Hcl) 2 % Vanessa 1 Drops OP BID 05/03/16 Reported Mag-Ox (Magnesium Oxide) 400 Mg Tab 400 Mg PO TID 04/02/16 Reported Isosorbide Mononitrate ER (Isosorbide Mononitrate) 30 Mg Tabcr 30 Mg PO DAILY 09/13/15 Reported Duoneb (Ipratropium-Albuterol) 3 Ml Nebu 1 Treatment INH Q4H 07/17/15 Reported Nitrostat (Nitroglycerin) 0.4 Mg Tab 1 Tab SL UD 07/17/15 Reported Lorazepam 1 Mg Tab 1 Mg PO QID PRN 07/17/15 Reported Xarelto (Rivaroxaban) 20 Mg Tab 20 Mg PO DAILY 07/17/15 Reported [place]-3 (Fish Oil) 1 Ea Cap 1 Cap PO DAILY 04/28/13 Reported Mvi With Minerals (Multivitamins/Minerals) Tab 1 Tab PO DAILY 04/28/13 Reported Zestril (Lisinopril) 10 Mg Tab 10 Mg PO DAILY 04/28/13 Reported Lipitor (Atorvastatin Calcium) 80 Mg Tab 80 Mg PO DAILY 04/28/13 Reported Physical Physical Exam Vital Signs: Date Time Temp Pulse Resp B/P (MAP) Pulse Ox O2 Delivery O2 Flow Rate FiO2 11/07/17 15:44 36.7 99 20 129/62 (84) 92 BiPAP 11/07/17 14:19 74 24 97 Room Air 11/07/17 12:00 Room Air 28 11/07/17 11:35 36.6 79 20 125/68 (87) 95 Trach Collar 28 11/07/17 08:00 Room Air 30 11/07/17 07:24 36.9 93 18 114/81 (92) 94 11/07/17 07:17 77 24 97 Room Air 11/07/17 05:13 36.4 96 20 108/64 (79) 94 Trach Collar 11/07/17 04:00 Room Air 30 11/07/17 01:45 74 24 97 Room Air 11/07/17 00:09 37.3 84 18 139/62 (87) 95 Trach Collar 11/07/17 00:00 Room Air 30 11/06/17 21:10 57 124/63 (83) 11/06/17 21:00 96 Room Air 30 11/06/17 19:40 78 18 95 Room Air 11/06/17 19:35 36.8 77 170/79 96 Trach Collar 30 11/06/17 19:00 75 22 171/84 97 11/06/17 18:32 75 22 171/84 97 Room Air 30 11/06/17 16:50 82 24 128/80 92 Room Air 30 Weight in Kilograms: 210.9 GENERAL : No acute distress. Morbidly obese EYES: No icterus, gaze conjugate NOSE: No evidence of epistaxis. Nasal cannula in place MOUTH: No lesions or candidiasis NECK: Supple LUNGS: CTA B/L, no wheezes, rales or rhonchi. Equal breath sounds bilaterally HEART: Regular, rate controlled. No appreciation of ectopy ABDOMEN: Soft, NT, ND, BS Present EXTREMITIES: No LE edema, pedal pulses intact NEURO: A&OX3 Diagnostics Labs Results Past 24 Hours Test 11/06/17 19:39 11/07/17 01:22 11/07/17 04:41 11/07/17 07:03 Range/Units Bedside Glucose 136 345 70-99 mg/dl Urine Color YELLOW Urine Appearance CLEAR CLEAR Urine pH 8.5 4.5-7.5 Urine Specific [place] 1.020 1.000-1.030 Urine Protein NEG NEG Urine Glucose (UA) NEG NEG Urine Ketones NEG NEG Urine Occult Blood NEG NEG Urine Nitrite NEG NEG Urine Bilirubin NEG NEG Urine Urobilinogen NEG NEG Urine Leukocyte Esterase NEG NEG White Blood Count 8.39 4.8-10.8 K/uL Red Blood Count 4.52 4.7-6.1 M/uL Hemoglobin 13.1 14.0-18.0 g/dL Hematocrit 38.5 42-52 % Mean Corpuscular Volume 85.2 80-100 fL Mean Corpuscular Hemoglobin 29.0 25-34 pg Mean Corpuscular Hemoglobin Concent 34.0 32-36 g/dl RDW Standard Deviation 45.9 36.4-46.3 fL RDW Coefficient of Variation 14.8 11.5-14.5 % Platelet Count 130 130-400 K/uL Mean Platelet Volume 10.7 7.4-10.4 fL Sodium Level 128 136-145 mmol/L Potassium Level 4.3 3.5-5.1 mmol/L Chloride Level 92 98-107 mmol/L Carbon Dioxide Level 29 21-32 mmol/L Anion Gap 7.0 3-11 mmol/L Blood Urea Nitrogen 17 7-18 mg/dl Creatinine 1.00 0.60-1.40 mg/dl Est Creatinine Clear Calc Drug Dose 140.3 ml/min Estimated GFR () 93.1 Estimated GFR (Non- 80.3 BUN/Creatinine Ratio 16.7 10-20 Random Glucose 297 70-99 mg/dl Calcium Level 8.9 8.5-10.1 mg/dl Magnesium Level 1.9 1.8-2.4 mg/dl Test 11/07/17 07:21 11/07/17 11:23 11/07/17 16:04 Range/Units Bedside Glucose 286 341 253 70-99 mg/dl Diagnostic Radiology CHEST ONE VIEW PORTABLE CLINICAL HISTORY: Chest pain. COMPARISON STUDY: Chest radiograph July 12, 2017. FINDINGS: This exam is significantly compromised due to portable technique and body habitus with suboptimal penetration. Tracheostomy tube is noted as well as median sternotomy wires. Cardiomegaly is unchanged. Left hemithorax pleural calcification is again noted. Scarring within the left lung is again noted. There is pulmonary vascular congestion without overt edema. There is no lobar consolidation. Mediastinal widening is unchanged. IMPRESSION: 1. Technically compromised exam given portable technique and body habitus. 2. Pulmonary vascular congestion without evidence for pulmonary edema. Stable cardiomegaly. Electronically signed by: Alexis Luna M.D. 10/15/2017 3:46 PM Impression Assessment and Plan HEMOPTYSIS * Prior bronchoscopy with no evidence of site of bleeding * Patient unable to have full bronchoscopy with conscious sedation * Will schedule patient for OR on Friday at [address] Evans * OR schedulers as well as respiratory therapy aware * N.p.o. after midnight Friday going into Friday * Xarelto held secondary to hemoptysis ALLIE * Continue supplemental oxygen with nasal cannula * May benefit from high flow O2 if unable to maintain saturation * Patient currently with tracheostomy in place PULMONARY NODULE * Being followed. On CT imaging 1020 09/17 and 05/04/16 * Jules criteria indicates no further follow-up DVT PROPHYLAXIS * Xarelto held for procedure on Friday as well as hemoptysis * Recommend Alfred/SCDs Thank you very much for including us in the care of this patient. Discussed case with Dr. Evans. He will see patient and perform bronchoscopy in the OR on Friday.
[2017-11-07] MEDS ORDERED: NURSING VERBAL MED ORDER ONE (18:45)
[2017-11-07] MEDS: TRAMADOL HCL 50 MG TAB PO PRN (21:29)
[2017-11-07] MEDS: GUAIFENESIN 600 MG TABCR PO SCH (21:31)
[2017-11-07] MEDS: LATANOPROST 0.005% OP SOLN 2.5 ML BTL OP SCH (21:32)
[2017-11-07] MEDS: LEVOFLOXACIN / D5W 750 MG in PREMIXED IN D5W 150 ML IV SCH (21:33)
[2017-11-07] MEDS: FLUTICASONE FUROATE INH SCH (21:33)
[2017-11-07] MEDS: INSULIN GLARGINE SC SCH (21:50)
[2017-11-08] VITALS (10 sets, daily range): BP systolic 130–167; BP diastolic 68–77; PULSE 70–89; TEMP 36.5–36.8; O2SAT 90–99
[2017-11-08] MEDS: PIPERACILL/TAZOBAC IV 4.5 GM in SODIUM CHLORIDE 0.9% 100ML 100 ML IV SCH ×3 (01:58→18:09)
[2017-11-08] MEDS: METHYLPREDNISOLONE IV 60 MG in SYRINGE 0 ML IV SCH ×4 (01:58→22:07)
[2017-11-08] MEDS: ALBUT/IPRATROP 3MG/0.5MG NEB 3 ML VIAL INH SCH ×4 (02:07→19:22)
[2017-11-08] MEDS: METOLAZONE 5 MG TAB PO SCH (07:22)
[2017-11-08] MEDS: INSULIN ASPART 100 UNITS/ML VIAL SC SCH ×6 (07:26→21:00)
[2017-11-08] MEDS: INSULIN ASPART 100 UNITS/ML VIAL SQ SCH (07:27)
[2017-11-08] MEDS: QNASL INH SCH ×2 (09:06→23:00)
[2017-11-08] MEDS: MAGNESIUM OXIDE 400 MG TAB PO SCH ×3 (09:06→21:02)
[2017-11-08] MEDS: DORZOLAMIDE HCL 2% OPH SOLN 10 ML BTL OP SCH ×2 (09:06→21:03)
[2017-11-08] MEDS: SPIRONOLACTONE 25 MG TAB PO SCH ×2 (09:07→17:23)
[2017-11-08] MEDS: POTASSIUM CHLORIDE 20 MEQ TABCR PO SCH ×2 (09:07→21:03)
[2017-11-08] MEDS: LISINOPRIL 10 MG TAB PO SCH (09:08)
[2017-11-08] MEDS: ASPIRIN 81 MG ECTAB PO SCH (09:08)
[2017-11-08] MEDS: SODIUM CHLORIDE 1 GM TAB PO SCH (09:08)
[2017-11-08] MEDS: ISOSORBIDE MONONITRATE 30 MG TABCR PO SCH (09:08)
[2017-11-08] MEDS: DILTIAZEM HCL 120 MG ER CAP PO SCH (09:08)
[2017-11-08] MEDS: METOPROLOL TARTRATE 25 MG TAB PO SCH ×2 (09:08→21:02)
[2017-11-08] MEDS: LORATADINE 10 MG TAB PO SCH (09:09)
[2017-11-08] MEDS: BUMETANIDE 1 MG TAB PO SCH (09:09)
[2017-11-08] MEDS: GUAIFENESIN 600 MG TABCR PO SCH ×2 (09:09→21:02)
[2017-11-08] MEDS: INSULIN GLARGINE SC SCH ×2 (09:15→21:00)
[2017-11-08 10:00] LABS: HEMATOCRIT 37.1 % (42-52); HEMOGLOBIN 12.6 g/dL (14.0-18.0); MEAN CELL VOLUME 85.5 fL (80-100); MEAN PLATELET VOLUME 11.1 fL (7.4-10.4); PLATELET COUNT 156 K/uL (130-400); RED CELL DISTRIBUTION WIDTH SD 46.7 fL (36.4-46.3); WHITE BLOOD COUNT 11.72 K/uL (4.8-10.8)
[2017-11-08] MEDS: LORAZEPAM 1 MG TAB PO PRN ×2 (10:08→22:18)
[2017-11-08 10:25] LABS: CALCIUM 9.2 mg/dl (8.5-10.1); CREATININE 1.17 mg/dl (0.60-1.40); POTASSIUM 3.5 mmol/L (3.5-5.1)
--- NOTE | 2017-11-08 11:11 | Psychiatric Consultation ---
Psychiatric Consultation Date of Service: Nov 08, 2017. Identifying Data Mr. Tim is a 62 yo male who lives with his family in [place]. Patient is known to me from a previous consultation on 07/14/17. Consult is by Dr. Hand for ongoing depression. Chief Complaint "that med you prescribed messed me up". History of Present Illness Mr. Tim started low dose Prozac with some early benefit but states that week 3 he felt somewhat activated with suicidal ideation. He didn't want to act on those thoughts so he discontinued it. He states there were insurance barriers to him ultimately following up with [facility] and he currently has no interest in medication or therapy (particularly the latter due to cost). He admits he is surly at times and makes some dramatic statements but feels he is functioning the best he can given his medical issues. He does confirm that he gave his guns away to his children and denies any thoughts of self-harm. He states he would "never" shoot himself as he loves his family and wants to live for his grandkids and "anyway that'd be too messy". 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 He has experienced worsening depression for the past 4-5 months after being "turned down" for gastric bypass surgery by 3 different surgeons given risk of anesthesia/procedure given his multitude of health issues. He is used to being independent and stubborn and how feels increasingly hopeless and a burden on his family. His is also dealing with health issues and O2 dependent. He admits that he thinks about ending his life and has had plans in past including using a gun. He clearly denies SI currently and describes that he wouldn't want his family to find him or to leave his grandchildren. He does plan to remove guns from the home by [employer] (gifting to family). He admits that he has been using Ativan 1 mg prn more regularly and PDMP database query shows he has been filling 120 tabs monthly. He admits that he "doubles up " at times at night to assist sleep and realizes that this could have a negative impact on his apnea. His appetite has varied and he losing interest in things when he is in/out of the hospital. He used to be an avid outdoorsman. Other stressors include his oldest daughter recently moving back in to the home as well as she got "jammed up". Past Psychiatric History Current OP Treatment: no current treatment Prior OP Treatment: psychiatrist (?"years ago", can't remember name) Access to a Gun: may still be in home Suicide Attempts: No Past Medication Trials denied other than benzo, did take Wellbutrin briefly for smoking cessation 3 week trial of Prozac reportedly caused SI. Past Medical/Surgical History (1) COPD exacerbation (2) Sepsis due to Streptococcus pneumoniae (3) Cellulitis (4) Hyponatremia (5) Morbid obesity (6) Diabetes (7) Hyperlipidemia Allergies Allergies: Coded Allergies: [place] (Verified Allergy, Severe, Difficulty breathing, 07/12/17) Sodium Hypochlorite (Verified Allergy, Unknown, HIVES AND RESPIRATORY DIFFICULTY FROM CLOROX, 07/12/17) Home Medications Current Inpatient Medications Medications (Trade) Dose Ordered Sig/Saige Route Start Time Stop Time Status Last Admin Dose Admin Ioversol (Optiray 320) 100 ml UD PRN IV 11/06/17 14:45 11/10/17 14:44 Lorazepam (Ativan Inj) 1 mg Q12 PRN IV 11/06/17 18:15 12/06/17 18:14 Aspirin (Ecotrin Tab) 81 mg DAILY PO 11/07/17 09:00 12/07/17 08:59 11/08/17 09:08 81 MG Bumetanide (Bumex Tab) 2 mg QAM PO 11/07/17 09:00 12/07/17 08:59 11/08/17 09:09 2 MG Diltiazem HCl (Dilacor Xr Cap) 120 mg DAILY PO 11/07/17 09:00 12/07/17 08:59 11/08/17 09:08 120 MG Dorzolamide HCl (Trusopt 2% Oph Soln) 1 drops BID OP 11/06/17 21:00 12/06/17 20:59 11/08/17 09:06 1 DROPS Insulin Aspart (novoLOG ASPART) 95 units QDD SC 11/07/17 16:45 12/07/17 17:59 11/07/17 16:37 95 UNITS Insulin Aspart (novoLOG ASPART) 100 units QDB SQ 11/07/17 07:30 12/07/17 07:59 11/08/17 07:27 100 UNITS Isosorbide Mononitrate (Imdur Ext Rel Tab) 30 mg DAILY PO 11/07/17 09:00 12/07/17 08:59 11/08/17 09:08 30 MG Latanoprost (Xalatan Oph Soln) 1 drops HS OP 11/06/17 21:00 12/06/17 20:59 11/07/17 21:32 1 DROPS Lisinopril (Zestril Tab) 10 mg DAILY PO 11/07/17 09:00 12/07/17 08:59 11/08/17 09:08 10 MG Lorazepam (Ativan Tab) 1 mg QID PRN PO 11/06/17 18:15 12/06/17 18:14 11/08/17 10:08 1 MG Magnesium Oxide (Mag-Ox Tab) 400 mg TID PO 11/06/17 21:00 12/06/17 20:59 11/08/17 09:06 400 MG Metolazone (Zaroxolyn Tab) 5 mg DAILY@0700 PO 11/07/17 07:00 12/07/17 06:59 11/08/17 07:22 5 MG Metoprolol Tartrate (Lopressor Tab) 25 mg BID PO 11/06/17 21:00 12/06/17 20:59 11/08/17 09:08 25 MG Miconazole Nitrate (Desenex Powder) 1 appln BID PRN EXT 11/06/17 18:15 12/06/17 18:14 Potassium Chloride (Klor-Con Tab) 60 meq BID PO 11/06/17 21:00 12/06/17 20:59 11/08/17 09:07 60 MEQ Sodium Chloride (Sodium Chloride Tab) 1 gm DAILY PO 11/07/17 09:00 12/07/17 08:59 11/08/17 09:08 1 GM Spironolactone (Aldactone Tab) 25 mg BID17 PO 11/07/17 09:00 12/07/17 08:59 11/08/17 09:07 25 MG Tramadol HCl (Ultram Tab) 50 mg Q8H PRN PO 11/06/17 18:15 12/06/17 18:14 11/07/17 21:29 50 MG Albuterol Sulfate (Ventolin 0.083% 2.5MG/3ML Neb) 2.5 mg Q4H PRN INH 11/06/17 18:15 12/06/17 18:14 Insulin Aspart (novoLOG ASPART) 70 units QDL SC 11/07/17 11:00 12/07/17 10:59 11/07/17 12:59 70 UNITS Levofloxacin 750 mg/Prmx 150 ml @ 100 mls/hr Q24H IV 11/06/17 20:00 11/13/17 19:59 11/07/17 21:33 100 MLS/HR Piperacillin Sod/ Tazobactam Sod 4.5 gm/Sodium Chloride 120 ml @ 28.75 mls/ hr Q8H IV 11/07/17 02:00 11/14/17 01:59 11/08/17 10:08 28.75 MLS/HR Miscellaneous Information (Consult) 1 ea UD PRN N/A 11/06/17 18:30 12/06/17 18:29 Acetaminophen (Tylenol Tab) 650 mg Q4H PRN PO 11/06/17 18:30 12/06/17 18:29 Al Hydrox/Mg Hydrox/Simethicone (Maalox Max Susp) 15 ml Q4H PRN PO 11/06/17 18:30 12/06/17 18:29 Magnesium Hydroxide (Milk Of Magnesia Susp) 30 ml Q12H PRN PO 11/06/17 18:30 12/06/17 18:29 Ondansetron HCl (Zofran Inj) 4 mg Q6H PRN IV 11/06/17 18:30 12/06/17 18:29 Nitroglycerin (Nitrostat Tab) 0.4 mg UD PRN SL 11/06/17 18:30 12/06/17 18:29 Morphine Sulfate (MoRPHine SULFATE INJ) 2 mg Q30M PRN IV 11/06/17 18:30 11/20/17 18:29 Polyethylene (Miralax Powder Packet) 17 gm DAILY PRN PO 11/06/17 18:30 12/06/17 18:29 Methylprednisolone Sodium Succinate 60 mg/Syringe 0.96 ml @ 1.5 mls/min Q6H IV 11/06/17 20:00 12/06/17 19:59 11/08/17 09:06 1.5 MLS/MIN Glucose (Glucose 40% Gel) 15-30 GRAMS 15 GRAMS... UD PRN PO 11/06/17 19:15 12/06/17 19:14 Glucose (Glucose Chew Tab) 4-8 Tablets 4 Tabl... UD PRN PO 11/06/17 19:15 12/06/17 19:14 Dextrose (Dextrose 50% 50ML Syringe) 25-50ML OF 50% DW IV FOR... UD PRN IV 11/06/17 19:15 12/06/17 19:14 Glucagon (Glucagon Inj) 1 mg UD PRN SQ 11/06/17 19:15 12/06/17 19:14 Non-Formulary Medication (Non-Formulary Patient'S Own Med) 2 ea DAILY INH 11/07/17 09:00 12/07/17 08:59 11/08/17 09:06 2 EA Insulin Aspart (novoLOG ASPART) SLIDING SCALE G... ACHS SC 11/07/17 11:00 12/07/17 10:59 11/08/17 07:26 32 UNITS Fluticasone Furoate (Arnuity Ellipta) 200 mcg HS INH 11/07/17 21:00 12/07/17 20:59 11/07/17 21:33 200 MCG Guaifenesin (Mucinex Contr Rel Tab) 1,200 mg Q12 PO 11/07/17 21:00 12/07/17 20:59 11/08/17 09:09 1,200 MG Loratadine (Claritin Tab) 10 mg QAM PO 11/08/17 09:00 12/08/17 08:59 11/08/17 09:09 10 MG Heparin Sodium (Porcine) (Heparin 10 Unit/ ml 5 ml Flush) 5 ml PRN PRN FLUSH 11/07/17 15:45 12/07/17 15:44 Albuterol/ Ipratropium (Duoneb) 3 ml Q6R INH 11/07/17 21:00 12/07/17 20:59 11/08/17 02:07 3 ML Insulin Glargine (Lantus Vial) 115 units QPM SC 11/08/17 21:00 12/06/17 20:59 Insulin Glargine (Lantus Vial) 118 units QAM CO 11/08/17 09:00 12/07/17 08:59 11/08/17 09:15 118 UNITS Family History Diabetes mellitus Heart disease Hypertension History of Suicide: No (but 's sister hung herself a year ago) History of Substance Abuse: Yes (daughter "drug issues") Psychiatric History: Yes (mother depression requiring an inpatient stay when he was a child) Alcohol Use Alcohol Use In Past 12 Months: No drank when in the service Smoking Use Smoking Status: Former Smoker Substance History denied Personal History Lives in: [place] with , te[place], son-in-law, their children and oldest daught Childhood: born and raised in [place] Education: graduated from high school 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 Examination Mental Examination During interview pt is: alert and oriented Appearance: appropriately groomed Eye contact is: fair Motor behavior is: no abnormal motor movements Speech: normal in rate, rhythm & volume Affect: depressed Mood is: depressed Thought process: clear, coherent Thought content: reality based without delusions Suicidal thought are: denied Homicidal thoughts are: denied Hallucinations: denies auditory, denies visual Cognition: attention grossly intact, language grossly intact Intelligence estimated to be: consistent with level of education Insight: limited Judgement: limited Impression / Recommendations Impression 62 yo male with depression due to complex medical conditions, inability to undergo gastric bypass for his morbid obesity given severity of underlying COPD/ apnea. He has had suicidal thoughts intermittently over the past several months , denies currently. Actually seems less depressed than last contact in 2017. Recommendations Major depressive disorder plan: he is refusing retrial of antidepressant medication, if changes mind I'd suggest SNRI over SNRI. there is no indication for inpatient psychiatric hospitalization he is agreeable to liaison nurse speaking with re: weapons and access to medications as part of outpatient safety plan
--- NOTE | 2017-11-08 18:44 | Hospitalist Progress Note ---
Hospitalist Progress Note Date of Service Nov 08, 2017. Subjective Pt evaluation today including: conversation w/ patient Patient frustrated today and says that he feels "horrible." Still feels very short of breath. His hemoptysis is less. RN reports that he had some blood- tinged toilet water and he says this is chronic for him from internal hemorrhoids-last colonoscopy 2 years ago. Telemetry with A. fib with PVCs, rates in the 80s to low 100s. When discussed about transfer off of telemetry, he became very upset and said he is not moving, that the staff in the PCU take good care of him and if he leaves here he will get good care. He then went on to tell me that he had an episode today of acute onset of severe dizziness where he almost fell off the bed and fell backwards onto the bed instead that lasted 15-20 minutes. It was followed by 45 minutes of the 7 out of 10 posterior headache. He denied any other numbness tingling or weakness, denies visual changes, and the symptoms all self resolved. He admits to previous episodes of dizziness, but they were never followed by headache. When I tried to order CT scan of the head, he stated there is no way he can do it, he cannot lie flat, and the test was canceled. All Other Systems: Reviewed and Negative Objective Vital Signs Date Time Temp Pulse Resp B/P (MAP) Pulse Ox O2 Delivery O2 Flow Rate FiO2 11/08/17 16:49 36.7 87 22 154/77 (102) 93 Trach Collar 11/08/17 16:00 Trach Collar 28 11/08/17 14:22 76 22 95 Trach Collar 8.0 28 11/08/17 12:00 Trach Collar 28 11/08/17 11:35 36.5 89 28 130/74 (92) 98 Trach Collar 6.0 28 11/08/17 08:00 Trach Collar 28 11/08/17 08:00 36.8 80 18 158/73 (101) 98 Trach Collar 11/08/17 07:04 76 22 92 Trach Collar 8.0 28 11/08/17 04:25 36.8 78 21 149/76 (100) 99 Trach Collar 6.0 28 11/08/17 04:00 Room Air 28 11/08/17 02:07 76 24 90 Trach Collar 8.0 28 11/08/17 00:00 Room Air 28 11/07/17 23:32 36.9 68 20 147/69 (95) 95 Room Air Trach Collar 11/07/17 20:00 Room Air 28 11/07/17 19:04 71 24 94 Trach Collar 8.0 28 Physical Exam General Appearance: no apparent distress, + obese (Morbid) Eyes: normal inspection, sclerae normal ENT: hearing grossly normal, + pertinent finding (Trach in place) Neck: trachea midline Respiratory/Chest: no respiratory distress, no accessory muscle use, + decreased breath sounds (Throughout all lung krishnamurthy, difficult to auscultate crackles or rhonchi or, no wheezes) Cardiovascular: + irregularly irregular (With normal rate) Abdomen: normal bowel sounds, non tender, soft (And morbidly obese) Extremities: + swelling (Chronic venous stasis changes, 1+ pitting edema in lower extremities to the knees bilaterally) Neurologic/Psychiatric: alert, oriented x 3, + depressed affect Skin: warm/dry, + rash (Right greater than left leg with chronic erythema, bandage on the right second toe, also with diffuse ichthyosis) Laboratory Results Last 24 Hours Test 11/07/17 20:10 11/08/17 06:09 11/08/17 09:47 11/08/17 09:48 Bedside Glucose 212 mg/dl 254 mg/dl Procalcitonin < 0.05 ng/ml White Blood Count 11.72 K/uL Red Blood Count 4.34 M/uL Hemoglobin 12.6 g/dL Hematocrit 37.1 % Mean Corpuscular Volume 85.5 fL Mean Corpuscular Hemoglobin 29.0 pg Mean Corpuscular Hemoglobin Concent 34.0 g/dl RDW Standard Deviation 46.7 fL RDW Coefficient of Variation 15.0 % Platelet Count 156 K/uL Mean Platelet Volume 11.1 fL Sodium Level 130 mmol/L Potassium Level 3.5 mmol/L Chloride Level 91 mmol/L Carbon Dioxide Level 30 mmol/L Anion Gap 10.0 mmol/L Blood Urea Nitrogen 19 mg/dl Creatinine 1.17 mg/dl Est Creatinine Clear Calc Drug Dose 119.3 ml/min Estimated GFR () 77.0 Estimated GFR (Non- 66.4 BUN/Creatinine Ratio 16.1 Random Glucose 336 mg/dl Calcium Level 9.2 mg/dl Beta-Hydroxybutyric Acid 1.96 mg/dL Test 11/08/17 11:26 11/08/17 16:23 Bedside Glucose 326 mg/dl 143 mg/dl Assessment and Plan This patient is a 62 yo M with a complex history of morbid obesity, CAD s/p CABG and stents, chronic lower extremity cellulitis, chronic atrial fibrillation on Xarelto, COPD with chronic respiratory failure, insulin- dependent diabetes mellitus type II, HTN, HLD, chronic diastolic CHF, CAD, severe ALLIE w/trach, who presents with shortness of breath, productive cough and hemoptysis. Found to have acute on chronic hypoxic respiratory failure, COPD exacerbation with hemoptysis, and suspected aspiration pneumonia.. Multiple admissions for COPD and CHF exacerbations, most recently from 10/15/17 - 10/21 for a COPD exacerbation, flulike symptoms, with hemoptysis and had a bronchoscopy at that time which showed evidence of aspiration. Acute on chronic hypoxic respiratory failure/COPD exacerbation/hemoptysis in the setting of anticoagulation with Xarelto-chest x-ray without definitive evidence of pneumonia. Pro-calcitonin level is negative today. He was placed on Zosyn and Levaquin on admission. Unable to tolerate CT of the chest as ordered due to anxiety. PE not likely given that he is on Xarelto Appreciate pulmonary consult -Plan for bronchoscopy on Friday - Continue duoNebs, 02, solumedrol 60 mg Q6H and taper down, mucinex, incentive spirometry, flutter valve -Will DC Zosyn and continue Levaquin -Continue to hold xarelto due to hemoptysis. The hemoptysis itself, however, may be the result of Xarelto and a persistent cough. -Hold aspirin due to hemoptysis as well - Pt consented for MID/PICC line due to significantly poor venous access Acute on chronic diastolic CHF-has not had a right-sided heart cath or a recent echo since 2015-at that time, was a very difficult study and right-sided pressures were not noted, likely can presume that he also has right-sided heart failure. Seems improved with this today and weight is already down 6 kg - Difficult to assess volume status due to body habitus - His BNP is also not reliable due to morbid obesity. - Given IV Bumex at time of admission, continue home Bumex 2 PO QAM, metolazone 5 mg daily, prolactin 25 mg p.o. twice daily -Strict I/Os, daily weights, low-sodium diet - Cont Imdur 30 mg daily, diltiazem 120 mg daily, lisinopril 10 mg daily -We will check echo Dizziness/headache-lasted 45 minutes and then resolved on its own. He has been off of his Xarelto and there is a chance this could be a TIA, but seems less likely. -He declined CT of the head and MRI brain would also not likely be feasible, plus unsure if he would fit in the machine -Holding aspirin for hemoptysis but will resume soon as possible -Neuro checks every 4 hours -Remain on telemetry Hyponatremia/CKD stage III-chronic is on salt tabs and diuretics, improved today from 128-130. Creatinine stable at 1.17 -Follow PRP -Continue salt tabs and diuretics Chronic atrial fibrillation on Xarelto-rates fairly well controlled -Holding Xarelto as above - we will continue Diltiazem and Metoprolol DM type II, on long-term insulin, uncontrolled, hemoglobin A1c 8.9% 1 month ago -Continue home Lantus and NovoLog regimen - ISS with accuchecks achs -ADA diet CAD status post CABG and stents remotely - no evidence of ACS on CAD and initial labs - cont ASA, Statin, B roberta, Imdur as above ALLIE with tracheostomy due to intolerance to BiPAP previously -Trach collar at nighttime Morbid obesity -Has been denied gastric bypass surgery in the past Major depressive disorder, recurrent, partially in remission TREV Hx panic attack Pt with hx of suicidal and homicidal ideation however denies current ideations. - pt is unwilling to initiate any type of antidepressant at this time. Previous episode of significant SI/HI occurred with fluoxetine 20 mg around the 3rd week of treatment which was given after hospital stay in Jul 2017. - Counseling was previously unaffordable for him - may ask CM to look into more affordable services. - Does not see a psychiatrist outpatient. Gets ativan from pulmonology per his report. Will encourage pt to have outpatient psych follow up prior to discharge , -Appreciate psychiatry consult here-no need for inpatient stay-he is declining further treatment with medications-they would recommend SNRI over SSRI if willing to try again - Caution with ativan 1 mg QID for anxiety and chronic respiratory issues but continue for anxiety/claustrophobia. DVT ppx: - anticoagulation held due to hemoptysis CODE STATUS: Full code Disposition: From home, CM to assist with dc planning.
[2017-11-08] MEDS: LATANOPROST 0.005% OP SOLN 2.5 ML BTL OP SCH (21:03)
[2017-11-08] MEDS: FLUTICASONE FUROATE INH SCH (21:04)
[2017-11-08] MEDS: LEVOFLOXACIN / D5W 750 MG in PREMIXED IN D5W 150 ML IV SCH (22:07)
[2017-11-08] MEDS ORDERED: NURSING VERBAL MED ORDER ONE ×2 (22:15→22:45)
[2017-11-08] MEDS: TRAMADOL HCL 50 MG TAB PO PRN (22:18)
[2017-11-09] VITALS (11 sets, daily range): BP systolic 122–150; BP diastolic 67–79; PULSE 72–109; TEMP 36.5–36.6; O2SAT 94–98
[2017-11-09] MEDS: PIPERACILL/TAZOBAC IV 4.5 GM in SODIUM CHLORIDE 0.9% 100ML 100 ML IV SCH (01:50)
[2017-11-09] MEDS: METHYLPREDNISOLONE IV 60 MG in SYRINGE 0 ML IV SCH ×3 (01:50→18:20)
[2017-11-09] MEDS: ALBUT/IPRATROP 3MG/0.5MG NEB 3 ML VIAL INH SCH ×4 (01:54→19:16)
[2017-11-09] MEDS: INSULIN ASPART 100 UNITS/ML VIAL SC SCH ×6 (07:00→21:22)
[2017-11-09 07:05] LABS: HEMATOCRIT 38.7 % (42-52); HEMOGLOBIN 13.1 g/dL (14.0-18.0); IG# 0.04 K/uL (0.00-0.02); LYMPH % 6.1 %; MEAN CORPUSCULAR HEMOGLOBIN 29.1 pg (25-34); MEAN CORPUSCULAR HGB CONC 33.9 g/dl (32-36); MEAN PLATELET VOLUME 11.1 fL (7.4-10.4); MONO ABS # 0.68 K/uL (0.11-0.59); NEUT % 87.5 %; PLATELET COUNT 184 K/uL (130-400); RED CELL DISTRIBUTION WIDTH CV 15.2 % (11.5-14.5); RED CELL DISTRIBUTION WIDTH SD 47.5 fL (36.4-46.3); WHITE BLOOD COUNT 11.42 K/uL (4.8-10.8)
[2017-11-09 07:40] LABS: CALCIUM 8.9 mg/dl (8.5-10.1); CREATININE 0.98 mg/dl (0.60-1.40); POTASSIUM 3.2 mmol/L (3.5-5.1)
[2017-11-09] MEDS: METOLAZONE 5 MG TAB PO SCH (08:30)
[2017-11-09] MEDS: LISINOPRIL 10 MG TAB PO SCH (08:30)
[2017-11-09] MEDS: DILTIAZEM HCL 120 MG ER CAP PO SCH (08:30)
[2017-11-09] MEDS: SPIRONOLACTONE 25 MG TAB PO SCH ×2 (08:30→17:38)
[2017-11-09] MEDS: SODIUM CHLORIDE 1 GM TAB PO SCH (08:30)
[2017-11-09] MEDS: GUAIFENESIN 600 MG TABCR PO SCH ×2 (08:31→21:08)
[2017-11-09] MEDS: LORATADINE 10 MG TAB PO SCH (08:31)
[2017-11-09] MEDS: ISOSORBIDE MONONITRATE 30 MG TABCR PO SCH (08:31)
[2017-11-09] MEDS: DORZOLAMIDE HCL 2% OPH SOLN 10 ML BTL OP SCH ×2 (08:31→21:08)
[2017-11-09] MEDS: METOPROLOL TARTRATE 25 MG TAB PO SCH ×2 (08:31→21:09)
[2017-11-09] MEDS: POTASSIUM CHLORIDE 20 MEQ TABCR PO SCH ×2 (08:31→21:10)
[2017-11-09] MEDS: MAGNESIUM OXIDE 400 MG TAB PO SCH ×3 (08:31→21:09)
[2017-11-09] MEDS: TRAMADOL HCL 50 MG TAB PO PRN ×2 (08:32→21:32)
[2017-11-09] MEDS: BUMETANIDE 1 MG TAB PO SCH (08:32)
[2017-11-09] MEDS: LORAZEPAM 1 MG TAB PO PRN ×2 (08:32→21:32)
[2017-11-09] MEDS: QNASL INH SCH ×2 (08:33→21:07)
[2017-11-09] MEDS: INSULIN ASPART 100 UNITS/ML VIAL SQ SCH (08:39)
[2017-11-09] MEDS: INSULIN GLARGINE SC SCH ×2 (08:40→21:22)
[2017-11-09] MEDS ORDERED: POTASSIUM CHLORIDE 10 MEQ TABCR PO ONE (12:30)
--- NOTE | 2017-11-09 13:53 | Hospitalist Progress Note ---
Hospitalist Progress Note Date of Service Nov 09, 2017. Subjective Pt evaluation today including: conversation w/ patient Patient states he still feels "horrible." He did not sleep at all last night because he kept coughing but nothing really coming up now. No further hemoptysis. Still having a mild headache, occasional dizziness. Telemetry with atrial fibrillation with PVCs, rates typically in the 70s-90s but up to the 130s at times. All Other Systems: Reviewed and Negative Objective Vital Signs Date Time Temp Pulse Resp B/P (MAP) Pulse Ox O2 Delivery O2 Flow Rate FiO2 11/09/17 12:00 Room Air 6.0 28 Trach Collar 11/09/17 11:20 36.5 84 26 122/68 (86) 98 Room Air 11/09/17 08:46 36.6 109 22 136/79 (98) 96 Trach Collar 6.0 28 11/09/17 08:00 Room Air 6.0 28 Trach Collar 11/09/17 07:17 76 22 94 Room Air 11/09/17 04:00 Trach Collar 28 11/09/17 03:10 36.6 78 22 150/74 (99) 97 Trach Collar 6.0 28 11/09/17 01:54 78 24 95 Trach Collar 6.0 28 11/09/17 00:00 Trach Collar 28 11/08/17 23:48 36.6 70 20 145/68 (93) 95 Room Air 11/08/17 20:15 36.8 78 18 167/76 (106) 99 Trach Collar 11/08/17 20:00 Trach Collar 28 11/08/17 19:25 80 22 97 Trach Collar 6.0 28 11/08/17 16:49 36.7 87 22 154/77 (102) 93 Trach Collar 11/08/17 16:00 Trach Collar 28 11/08/17 14:22 76 22 95 Trach Collar 8.0 28 Physical Exam General Appearance: no apparent distress, + obese (Morbidly) Eyes: normal inspection, sclerae normal ENT: hearing grossly normal Neck: trachea midline Respiratory/Chest: no respiratory distress, no accessory muscle use, + decreased breath sounds (Diminished throughout secondary to body habitus), + wheezing (Scattered) Cardiovascular: no murmur, + irregularly irregular (With normal rate) Abdomen: normal bowel sounds, non tender, soft Extremities: + swelling (1+ pitting edema right greater than left legs but with wrinkled skin and significantly improved from previous hospital stays, with chronic venous stasis changes of the right leg only) Neurologic/Psychiatric: alert, oriented x 3, + depressed affect Skin: warm/dry Laboratory Results Last 24 Hours Test 11/08/17 16:23 11/08/17 20:28 11/09/17 01:45 11/09/17 06:20 Bedside Glucose 143 mg/dl 109 mg/dl 127 mg/dl White Blood Count 11.42 K/uL Red Blood Count 4.50 M/uL Hemoglobin 13.1 g/dL Hematocrit 38.7 % Mean Corpuscular Volume 86.0 fL Mean Corpuscular Hemoglobin 29.1 pg Mean Corpuscular Hemoglobin Concent 33.9 g/dl Platelet Count 184 K/uL Mean Platelet Volume 11.1 fL Neutrophils (%) (Auto) 87.5 % Lymphocytes (%) (Auto) 6.1 % Monocytes (%) (Auto) 6.0 % Eosinophils (%) (Auto) 0.0 % Basophils (%) (Auto) 0.0 % Neutrophils # (Auto) 10.00 K/uL Lymphocytes # (Auto) 0.70 K/uL Monocytes # (Auto) 0.68 K/uL Eosinophils # (Auto) 0.00 K/uL Basophils # (Auto) 0.00 K/uL RDW Standard Deviation 47.5 fL RDW Coefficient of Variation 15.2 % Immature Granulocyte % (Auto) 0.4 % Immature Granulocyte # (Auto) 0.04 K/uL Sodium Level 131 mmol/L Potassium Level 3.2 mmol/L Chloride Level 93 mmol/L Carbon Dioxide Level 30 mmol/L Anion Gap 8.0 mmol/L Blood Urea Nitrogen 23 mg/dl Creatinine 0.98 mg/dl Est Creatinine Clear Calc Drug Dose 141.8 ml/min Estimated GFR () 95.4 Estimated GFR (Non- 82.3 BUN/Creatinine Ratio 23.5 Random Glucose 144 mg/dl Calcium Level 8.9 mg/dl Magnesium Level 2.0 mg/dl Test 11/09/17 06:22 11/09/17 11:30 Bedside Glucose 156 mg/dl 306 mg/dl Assessment and Plan This patient is a 62 yo M with a complex history of morbid obesity, CAD s/p CABG and stents, chronic lower extremity cellulitis, chronic atrial fibrillation on Xarelto, COPD with chronic respiratory failure, insulin- dependent diabetes mellitus type II, HTN, HLD, chronic diastolic CHF, CAD, severe ALLIE w/trach, who presents with shortness of breath, productive cough and hemoptysis. Found to have acute on chronic hypoxic respiratory failure, COPD exacerbation with hemoptysis, and suspected aspiration pneumonia.. Multiple admissions for COPD and CHF exacerbations, most recently from 10/15/17 - 10/21 for a COPD exacerbation, flulike symptoms, with hemoptysis and had a bronchoscopy at that time which showed evidence of aspiration. Acute on chronic hypoxic respiratory failure/COPD exacerbation/hemoptysis in the setting of anticoagulation with Xarelto-chest x-ray without definitive evidence of pneumonia. Pro-calcitonin level is negative. He was placed on Zosyn and Levaquin on admission. Unable to tolerate CT of the chest as ordered due to anxiety. PE not likely given that he is on Xarelto Appreciate pulmonary consult Hemoptysis has resolved off of Xarelto -Plan for bronchoscopy on Friday, will make n.p.o. after midnight - Continue duoNebs, 02, solumedrol and taper down today, mucinex, incentive spirometry, flutter valve -DC Zosyn but will continue Levaquin 7 day course -Continue to hold xarelto due to hemoptysis. -Hold aspirin due to hemoptysis as well -With midline left upper extremity due to significantly poor venous access Acute on chronic diastolic CHF-has not had a right-sided heart cath or a recent echo since 2016-at that time, was a very difficult study and right-sided pressures were not noted, likely can presume that he also has right-sided heart failure. I's and O's cannot be recorded as patient can only go to the bathroom in the toilet-due to body habitus, he cannot use a urinal-continues to lose weight and is now down 7 kg from admission - Difficult to assess volume status due to body habitus, but leg edema is the best I have ever seen it - Given IV Bumex at time of admission, continue home Bumex 2 PO QAM, metolazone 5 mg daily, prolactin 25 mg p.o. twice daily-consider IV diuretics but not needed today -Strict I/Os, daily weights, low-sodium diet - Cont Imdur 30 mg daily, diltiazem 120 mg daily, lisinopril 10 mg daily -Echocardiogram still pending Dizziness/headache-lasted 45 minutes and then resolved on its own. He has been off of his Xarelto and there is a chance this could be a TIA, but seems less likely. Still with some intermittent symptoms today, I believe this is more consistent with cough induced headache and or tension headache. -He declined CT of the head and MRI brain would also not likely be feasible, plus unsure if he would fit in the machine -Holding aspirin for hemoptysis but will resume soon as possible -Neuro checks every 4 hours -Remain on telemetry Hyponatremia/CKD stage III-chronic is on salt tabs and diuretics, continues to improve now at 131 up from 128. Creatinine stable at 0.98 -Follow PRP -Continue salt tabs and diuretics Chronic atrial fibrillation on Xarelto-rates fairly well controlled but with some spikes to the 130s with minimal activity -Holding Xarelto as above - we will continue Diltiazem and Metoprolol DM type II, on long-term insulin, uncontrolled, hemoglobin A1c 8.9% 1 month ago -Continue home Lantus and NovoLog regimen - ISS with accuchecks achs -ADA diet CAD status post CABG and stents remotely - no evidence of ACS on CAD and initial labs - cont ASA, Statin, B roberta, Imdur as above ALLIE with tracheostomy due to intolerance to BiPAP previously -Trach collar at nighttime Morbid obesity -Has been denied gastric bypass surgery in the past Major depressive disorder, recurrent, partially in remission TREV Hx panic attack Pt with hx of suicidal and homicidal ideation however denies current ideations. - pt is unwilling to initiate any type of antidepressant at this time. Previous episode of significant SI/HI occurred with fluoxetine 20 mg around the 3rd week of treatment which was given after hospital stay in Jul 2017. - Counseling was previously unaffordable for him - may ask CM to look into more affordable services. - Does not see a psychiatrist outpatient. Gets ativan from pulmonology per his report. Will encourage pt to have outpatient psych follow up prior to discharge , -Appreciate psychiatry consult here-no need for inpatient stay-he is declining further treatment with medications-they would recommend SNRI over SSRI if willing to try again - Caution with ativan 1 mg QID for anxiety and chronic respiratory issues but continue for anxiety/claustrophobia. DVT ppx: - anticoagulation held due to hemoptysis CODE STATUS: Full code Disposition: From home, CM to assist with dc planning, could possibly transfer to medical after recovery from bronchoscopy
--- NOTE | 2017-11-09 17:36 | ECHOCARDIOGRAM REPORT ---
*NOTICE TO RECEIVING [employer] This information is strictly Confidential and protected under [place] law. [place] law prohibits you from making any further disclosure of this information unless further disclosure is expressly permitted by the written consent of the person to whom it pertains or is authorized by law. A general authorization for the release of medical or other information is not sufficient for this purpose. Hospital accepts no responsibility if the information is made available to any other person, INCLUDING THE PATIENT. Interpretation Summary * Name: LEONARDA LINDER JR Study Date: 11/09/2017 02:39 PM BP: 150/74 mmHg * Patient Location: C.2T\S\S237\S\1 HR: 76 * : 1955 (M/d/yyy) Gender: Male Height: 70 in * Age: 62 yrs Ethnicity: [place] Weight: 458 lb * Ordering Physician: Bell Gasca * Referring Physician: Self, Referred * Performed By: Olivia Gustafson RDCS * * Reason For Study: Congestive Heart Failure * BSA: 3.0 m2 * -- Conclusions -- * As in the past, very technically limited study due to body habitus. * Left ventricle is reasonably visualized and is non-dilated with good contractile function (EF=60-65%) and no obvious wall motion abnormalities. There is some evidence of right heart volume overload (septal flattening during diastole). The right ventricle appears moderately dilated with reduced function. * Extremely limited study, recommend transesophageal echoccardiogram if valvular evaluation desired. * Doppler signal too technically limited to be meaningful. Procedure Details * A complete two-dimensional transthoracic echocardiogram was performed (2D, M-mode, Doppler and color flow Doppler). * The study was technically difficult. * There were technical limitations due to patient'sbody habitus * A contrast injection of Definity was performed to improve assessment of LV function. * Contrast was injected into an intravenous site in the left arm. * One vial of Definity ultrasound contrast was diluted in normal saline to a total volume of 10 ml. A total of '2' ml of solution was administered during imaging. * Lot # [id number] of Definity utilized for procedure. * Expiration date 1APR19. * The attending nurse who injected the contrast agent was Gustavo Adamson RN. Left Ventricle * The left ventricle is grossly normal size. * There is normal left ventricular wall thickness. * Left ventricular systolic function is normal. * Ejection Fraction = 60-65%. * The left ventricular wall motion is normal. Right Ventricle * The right ventricle is moderately dilated. * The right ventricular systolic function is moderately reduced. Atria * The left atrium is not well visualized. * Right atrium not well visualized. Mitral Valve * The mitral valve is not well visualized. * The mitral valve is grossly normal. Tricuspid Valve * The tricuspid valve is not well visualized. Aortic Valve * The aortic valve is not well visualized. Pericardium/Pleural * There is no pericardial effusion. MMode 2D Measurements and Calculations IVSd 1.5 cm LVIDd 5.5 cm LVIDs 4.2 cm LVPWd 1.4 cm IVS/LVPW 1.1 FS 24.5 % EDV(Teich) 147.4 ml ESV(Teich) 76.4 ml EF(Teich) 48.1 % EDV(cubed) 166.3 ml ESV(cubed) 71.5 ml EF(cubed) 57.0 % LV mass(C)d 345.8 grams LV mass(C)dI 116.5 grams/m\S\2 SV(Teich) 70.9 ml SI(Teich) 23.9 ml/m\S\2 SV(cubed) 94.7 ml SI(cubed) 31.9 ml/m\S\2 Ao root diam 3.2 cm Ao root area 7.8 cm\S\2 ACS 2.1 cm LA dimension 4.2 cm LA/Ao 1.3 LVAd ap4 23.8 cm\S\2 LVLd ap4 5.7 cm EDV(MOD-sp4) 80.9 ml EDV(sp4-el) 84.1 ml LVAs ap4 15.5 cm\S\2 LVLs ap4 5.3 cm ESV(MOD-sp4) 39.0 ml ESV(sp4-el) 38.7 ml EF(MOD-sp4) 51.8 % EF(sp4-el) 54.0 % LVAd ap2 29.9 cm\S\2 LVLd ap2 7.0 cm EDV(MOD-sp2) 112.1 ml EDV(sp2-el) 108.2 ml LVAs ap2 19.7 cm\S\2 LVLs ap2 6.1 cm ESV(MOD-sp2) 53.8 ml ESV(sp2-el) 54.2 ml EF(MOD-sp2) 52.0 % EF(sp2-el) 49.9 % LVLd %diff 18.7 % EDV(MOD-bp) 105.1 ml LVLs %diff 12.5 % ESV(MOD-bp) 50.4 ml EF(MOD-bp) 52.0 % SV(MOD-sp4) 41.9 ml SI(MOD-sp4) 14.1 ml/m\S\2 SV(MOD-sp2) 58.3 ml SI(MOD-sp2) 19.6 ml/m\S\2 SV(MOD-bp) 54.7 ml SI(MOD-bp) 18.4 ml/m\S\2 SV(sp4-el) 45.5 ml SI(sp4-el) 15.3 ml/m\S\2 SV(sp2-el) 54.0 ml SI(sp2-el) 18.2 ml/m\S\2 Doppler Measurements and Calculations MV E max michael 123.4 cm/sec MV A max michael 50.9 cm/sec MV E/A 2.4 MV dec time 0.28 sec Ao V2 max 100.2 cm/sec Ao max PG 4.0 mmHg Ao max PG (full) 0.25 mmHg AI max michael 119.4 cm/sec AI max PG 5.7 mmHg AI dec slope 172.0 cm/sec\S\2 AI P1/2t 203.3 msec LV V1 max PG 3.8 mmHg LV V1 max 97.1 cm/sec PA V2 max 99.0 cm/sec PA max PG 3.9 mmHg TR max michael 191.3 cm/sec
[2017-11-09] MEDS: LEVOFLOXACIN / D5W 750 MG in PREMIXED IN D5W 150 ML IV SCH (19:20)
[2017-11-09] MEDS: FLUTICASONE FUROATE INH SCH (21:07)
[2017-11-09] MEDS: LATANOPROST 0.005% OP SOLN 2.5 ML BTL OP SCH (21:07)
[2017-11-10] VITALS (13 sets, daily range): BP systolic 145–179; BP diastolic 68–95; PULSE 70–95; TEMP 36.5–36.8; O2SAT 95–100
[2017-11-10] MEDS: ALBUT/IPRATROP 3MG/0.5MG NEB 3 ML VIAL INH SCH ×4 (01:35→19:16)
[2017-11-10] MEDS: METHYLPREDNISOLONE IV 60 MG in SYRINGE 0 ML IV SCH ×3 (01:57→18:11)
[2017-11-10 06:44] LABS: HEMATOCRIT 38.8 % (42-52); HEMOGLOBIN 13.1 g/dL (14.0-18.0); IG# 0.05 K/uL (0.00-0.02); LYMPH % 7.5 %; MEAN CELL VOLUME 86.2 fL (80-100); MEAN CORPUSCULAR HEMOGLOBIN 29.1 pg (25-34); MEAN CORPUSCULAR HGB CONC 33.8 g/dl (32-36); MEAN PLATELET VOLUME 10.5 fL (7.4-10.4); MONO % 9.7 %; MONO ABS # 0.91 K/uL (0.11-0.59); NEUT % 82.3 %; NEUT ABS # 7.72 K/uL (1.4-6.5); PLATELET COUNT 189 K/uL (130-400); RED CELL DISTRIBUTION WIDTH SD 47.1 fL (36.4-46.3); WHITE BLOOD COUNT 9.38 K/uL (4.8-10.8)
[2017-11-10] MEDS: INSULIN ASPART 100 UNITS/ML VIAL SC SCH ×6 (07:00→21:28)
[2017-11-10 07:16] LABS: CALCIUM 8.9 mg/dl (8.5-10.1); CREATININE 0.93 mg/dl (0.60-1.40); POTASSIUM 3.4 mmol/L (3.5-5.1)
[2017-11-10] MEDS: INSULIN ASPART 100 UNITS/ML VIAL SQ SCH (07:30)
--- NOTE | 2017-11-10 08:19 | History & Physical Bridge Note ---
H&P Re-Evaluation Bridge Note: I have examined the patient, reviewed the History & Physical and in the interval since the performance of the History & Physical I have noted the following changes of clinical significance: No changes noted
[2017-11-10] MEDS: INSULIN GLARGINE SC SCH ×2 (08:27→21:29)
[2017-11-10] MEDS: BUMETANIDE 1 MG TAB PO SCH (08:34)
[2017-11-10] MEDS: METOPROLOL TARTRATE 25 MG TAB PO SCH ×2 (08:34→21:18)
[2017-11-10] MEDS: GUAIFENESIN 600 MG TABCR PO SCH ×2 (08:34→21:19)
[2017-11-10] MEDS: METOLAZONE 5 MG TAB PO SCH (08:34)
[2017-11-10] MEDS: DILTIAZEM HCL 120 MG ER CAP PO SCH (08:34)
[2017-11-10] MEDS: MAGNESIUM OXIDE 400 MG TAB PO SCH ×3 (08:34→21:18)
[2017-11-10] MEDS: LORATADINE 10 MG TAB PO SCH (08:34)
[2017-11-10] MEDS: SODIUM CHLORIDE 1 GM TAB PO SCH (08:34)
[2017-11-10] MEDS: SPIRONOLACTONE 25 MG TAB PO SCH ×2 (08:35→18:12)
[2017-11-10] MEDS: QNASL INH SCH ×2 (08:35→21:29)
[2017-11-10] MEDS: DORZOLAMIDE HCL 2% OPH SOLN 10 ML BTL OP SCH ×2 (08:35→21:17)
[2017-11-10] MEDS: POTASSIUM CHLORIDE 20 MEQ TABCR PO SCH ×2 (08:36→21:16)
[2017-11-10] MEDS: ISOSORBIDE MONONITRATE 30 MG TABCR PO SCH (09:00)
[2017-11-10] MEDS: LISINOPRIL 10 MG TAB PO SCH (09:00)
[2017-11-10] MEDS ORDERED: FENTANYL CITRATE INJ 50 MCG/1 ML 2 ML VIAL ONE (14:31)
--- NOTE | 2017-11-10 14:58 | Bronchoscopy Procedure Note ---
Bronchoscopy Procedure Note Procedure: Bronchoscopy, conscious sedation, bronchial lavage Consent: Obtained through the patient placed into the chart Pre-procedural diagnosis: hemoptysis Post-procedural diagnosis: hemoptysis Sedation: refer to Anesthesia note Procedure: The Olympus video bronchoscope was used for this procedure Initially the patient's tracheostomy was switched to a size 6 cuffed Shiley and bronchoscopically verified its position within the trachea but poor positioning Bronchoscope was then passed down to the oropharynx: Posterior oropharynx: Anatomically within normal limits Glottis: Anatomically within normal limits Vocal cords: Proper abduction and abduction, anatomically within normal limits Subglottis: Anatomically within normal Trachea: Approximately the third to fourth tracheal ring was the ostomy which was matured and showed multiple granulation tissue with some mild bleeding Bailey: Anatomically within normal limits, mucous plugs appreciated along the bailey Right bronchial tree: Right mainstem bronchus: Anatomically within normal limits Right upper lobe: Anatomically within normal limits Bronchus intermedius: Anatomically within normal limits Right middle lobe: Anatomically within normal limits Right lower lobe: Anatomically within normal limits Findings: Mucous plugs appreciated along most subsegments of the right lower lung Left bronchial tree: Left mainstem bronchus: Anatomically within normal limits Left upper lobe: Anatomically within normal limits Lingula: Anatomically within normal limits Left lower lobe: Anatomically within normal limits Findings: Mucous plugs appreciated of subsegments of the left lower lobe As the bronchoscope was being removed it was retroflexed off the soft palate in the naris/near I were reviewed posteriorly with no signs of active bleeding Bronchial alveolar lavage: Right lower lobe EBL: 2 cc Complications: None Follow-up: ASU
[2017-11-10] MEDS ORDERED: PROPOFOL IV EMULSION 10 MG/ML 20 ML VIAL IV ONE (14:59)
[2017-11-10] MEDS ORDERED: ATROPINE SULFATE 0.1 MG/ML 5ML SYR IV PRN (15:15)
[2017-11-10] MEDS ORDERED: EpHEDrine SULFATE INJ 50 MG/ML AMP IV PRN (15:15)
--- NOTE | 2017-11-10 16:18 | Anesthesiology Progress Note ---
Anesthesia Post Op Note Date & Time Nov 10, 2017 at 16:18 Vital Signs Pain Intensity: 0 Vital Signs Past 12 Hours Date Time Temp Pulse Resp B/P (MAP) Pulse Ox O2 Delivery O2 Flow Rate FiO2 11/10/17 15:45 36.6 79 14 141/52 100 Free Flow/Blowby 11/10/17 15:35 36.6 78 14 151/66 99 Free Flow/Blowby 11/10/17 15:25 78 14 139/100 98 Free Flow/Blowby 11/10/17 15:15 79 14 120/66 98 Free Flow/Blowby 11/10/17 15:05 36.6 83 14 149/58 97 Free Flow/Blowby 11/10/17 12:00 Room Air 28 Trach Collar 11/10/17 11:33 36.7 76 24 166/72 (103) 98 Trach Collar 6.0 28 11/10/17 08:00 Room Air 28 Trach Collar 11/10/17 07:49 36.8 70 20 145/69 (94) 96 Room Air 11/10/17 07:19 95 20 99 Room Air Notes Mental Status: alert / awake / arousable, participated in evaluation Pt Amnestic to Procedure: Yes Nausea / Vomiting: adequately controlled Pain: adequately controlled Airway Patency, RR, SpO2: stable & adequate BP & HR: stable & adequate Hydration State: stable & adequate Anesthetic Complications: no major complications apparent
[2017-11-10] MEDS ORDERED: [UNRECOGNIZED DRUG - CODE] IV (18:34)
[2017-11-10] MEDS ORDERED: LEVO1INJ IV (18:34)
[2017-11-10] MEDS ORDERED: ALBINS INH (18:34)
--- NOTE | 2017-11-10 18:38 | Discharge Instructions ---
Discharge Instructions Date of Service Nov 10, 2017. Admission Reason for Admission: Acute Respiratory Failure, Hemoptysis Discharge Discharge Diagnosis / Problem: Acute respiratory failure, Hemoptysis, Tracheostomy dysfunction Discharge Goals Goal(s): Improve disease control, Diagnostic testing, Therapeutic intervention Activity Recommendations Activity Limitations: as noted below Exercise/Sports Limitations: rest today . Instructions / Follow-Up Instructions / Follow-Up Transferred to [facility] Current Hospital Diet Patient's current hospital diet: Diabetes Type 2 Diet, AHA Diet (Heart Healthy) Discharge Diet Recommended Diet: AHA Diet (Heart Healthy), Low Sodium Diet (2gm Na), Diabetes Type 2 Diet Procedures Procedures Performed: Flexible Bronchoscopy, Brochial Alveolar Lavage- Right Lower Lobe Lavage, Tracheotomy Exchange Chest xray Pending Studies Studies pending at discharge: yes List of pending studies: Bronchial washings-fungal smear and culture, gram stain and culture, AFB Laboratory Results Last 24 Hours Test 11/09/17 20:25 11/10/17 06:10 11/10/17 06:44 11/10/17 07:46 Bedside Glucose 184 mg/dl 74 mg/dl 92 mg/dl White Blood Count 9.38 K/uL Red Blood Count 4.50 M/uL Hemoglobin 13.1 g/dL Hematocrit 38.8 % Mean Corpuscular Volume 86.2 fL Mean Corpuscular Hemoglobin 29.1 pg Mean Corpuscular Hemoglobin Concent 33.8 g/dl Platelet Count 189 K/uL Mean Platelet Volume 10.5 fL Neutrophils (%) (Auto) 82.3 % Lymphocytes (%) (Auto) 7.5 % Monocytes (%) (Auto) 9.7 % Eosinophils (%) (Auto) 0.0 % Basophils (%) (Auto) 0.0 % Neutrophils # (Auto) 7.72 K/uL Lymphocytes # (Auto) 0.70 K/uL Monocytes # (Auto) 0.91 K/uL Eosinophils # (Auto) 0.00 K/uL Basophils # (Auto) 0.00 K/uL RDW Standard Deviation 47.1 fL RDW Coefficient of Variation 15.0 % Immature Granulocyte % (Auto) 0.5 % Immature Granulocyte # (Auto) 0.05 K/uL Sodium Level 137 mmol/L Potassium Level 3.4 mmol/L Chloride Level 96 mmol/L Carbon Dioxide Level 36 mmol/L Anion Gap 5.0 mmol/L Blood Urea Nitrogen 25 mg/dl Creatinine 0.93 mg/dl Est Creatinine Clear Calc Drug Dose 149.6 ml/min Estimated GFR () 101.6 Estimated GFR (Non- 87.7 BUN/Creatinine Ratio 26.6 Random Glucose 68 mg/dl Calcium Level 8.9 mg/dl Magnesium Level 2.3 mg/dl Test 11/10/17 11:24 11/10/17 15:14 11/10/17 16:13 Bedside Glucose 136 mg/dl 167 mg/dl 176 mg/dl Hemoglobin A1c Test 10/16/17 07:02 Range/Units Estimated Average Glucose 209 mg/dl Hemoglobin A1c 8.9 H 4.5-5.6 % Medical Emergencies . Who to Call and When: Medical Emergencies: If at any time you feel your situation is an emergency, please call 911 immediately. . Non-Emergent Contact Non-Emergency issues call your: Primary Care Provider, White Kid Buffer . . "Provider Documentation" section prepared by Bell Gasca. .
[2017-11-10] MEDS: TRAMADOL HCL 50 MG TAB PO PRN (21:15)
[2017-11-10] MEDS: FLUTICASONE FUROATE INH SCH (21:15)
[2017-11-10] MEDS: LORAZEPAM 1 MG TAB PO PRN (21:16)
[2017-11-10] MEDS: LATANOPROST 0.005% OP SOLN 2.5 ML BTL OP SCH (21:17)
[2017-11-10] MEDS: LEVOFLOXACIN / D5W 750 MG in PREMIXED IN D5W 150 ML IV SCH (21:29)
--- NOTE | 2017-11-11 00:12 | Hospitalist Progress Note ---
Hospitalist Progress Note Date of Service Nov 10, 2017. Subjective Pt evaluation today including: conversation w/ patient, conversation w/ customer service and sales consultant (Pulmonology) Patient had bronchoscopy today and was found to have bleeding from the anterior portion of the tracheostomy site thought to be due to the 2 being too short. Pulmonology is recommending the ostomy revision and a larger ET tube. I discussed the case with the on-call ENT on the phone who recommended transfer to tertiary care facility given the patient's morbid obesity and multiple comorbidities. Patient reports he feels perhaps slightly improved with his breathing, less short of breath since the bronchoscopy. No further hemoptysis he notes. He is agreeable to transfer to [facility] Telemetry shows atrial fibrillation with controlled rates. All Other Systems: Reviewed and Negative Objective Vital Signs Date Time Temp Pulse Resp B/P (MAP) Pulse Ox O2 Delivery O2 Flow Rate FiO2 11/10/17 23:20 36.5 81 20 148/83 (104) 95 Room Air 11/10/17 20:09 36.7 83 20 166/75 (105) 99 11/10/17 20:00 Trach Collar 6.0 28 11/10/17 19:17 94 20 98 Trach Collar 6.0 28 11/10/17 17:45 36.8 94 20 147/89 (108) 98 Trach Collar 6.0 28 11/10/17 17:15 36.8 89 18 150/91 (110) 97 Trach Collar 6.0 28 11/10/17 16:45 36.6 79 20 165/90 (115) 98 Trach Collar 6.0 28 11/10/17 16:15 36.6 91 16 179/68 (105) 100 Trach Collar 6.0 28 11/10/17 16:00 100 Free Flow/Blowby 6.0 28 11/10/17 15:45 36.6 79 14 141/52 100 Free Flow/Blowby 11/10/17 15:35 36.6 78 14 151/66 99 Free Flow/Blowby 11/10/17 15:25 78 14 139/100 98 Free Flow/Blowby 11/10/17 15:15 79 14 120/66 98 Free Flow/Blowby 11/10/17 15:05 36.6 83 14 149/58 97 Free Flow/Blowby 11/10/17 12:00 Room Air 28 Trach Collar 11/10/17 11:33 36.7 76 24 166/72 (103) 98 Trach Collar 6.0 28 11/10/17 08:00 Room Air 28 Trach Collar 11/10/17 07:49 36.8 70 20 145/69 (94) 96 Room Air 11/10/17 07:19 95 20 99 Room Air 11/10/17 04:00 Trach Collar 28 11/10/17 03:39 36.7 73 17 159/95 (116) 100 Trach Collar 6.0 28 11/10/17 01:35 78 20 98 Trach Collar 6.0 28 11/09/17 23:59 94 Trach Collar 28 Physical Exam Notes: Physical Exam General Appearance: no apparent distress, + obese (Morbidly) Eyes: normal inspection, sclerae normal ENT: hearing grossly normal Neck: trachea midline with tracheostomy tube in place and trach collar with 6 L of oxygen on Respiratory/Chest: no respiratory distress, no accessory muscle use, + decreased breath sounds (Diminished throughout secondary to body habitus), slightly improved air movement and less wheezing after bronchoscopy today Cardiovascular: no murmur, + irregularly irregular (With normal rate) Abdomen: normal bowel sounds, non tender, soft Extremities: + swelling (1+ pitting edema right greater than left legs but with wrinkled skin and significantly improved from previous hospital stays, with chronic venous stasis changes of the right leg only) Neurologic/Psychiatric: alert, oriented x 3, + depressed affect Skin: warm/dry Laboratory Results Last 24 Hours Test 11/10/17 06:10 11/10/17 06:44 11/10/17 07:46 11/10/17 11:24 White Blood Count 9.38 K/uL Red Blood Count 4.50 M/uL Hemoglobin 13.1 g/dL Hematocrit 38.8 % Mean Corpuscular Volume 86.2 fL Mean Corpuscular Hemoglobin 29.1 pg Mean Corpuscular Hemoglobin Concent 33.8 g/dl Platelet Count 189 K/uL Mean Platelet Volume 10.5 fL Neutrophils (%) (Auto) 82.3 % Lymphocytes (%) (Auto) 7.5 % Monocytes (%) (Auto) 9.7 % Eosinophils (%) (Auto) 0.0 % Basophils (%) (Auto) 0.0 % Neutrophils # (Auto) 7.72 K/uL Lymphocytes # (Auto) 0.70 K/uL Monocytes # (Auto) 0.91 K/uL Eosinophils # (Auto) 0.00 K/uL Basophils # (Auto) 0.00 K/uL RDW Standard Deviation 47.1 fL RDW Coefficient of Variation 15.0 % Immature Granulocyte % (Auto) 0.5 % Immature Granulocyte # (Auto) 0.05 K/uL Sodium Level 137 mmol/L Potassium Level 3.4 mmol/L Chloride Level 96 mmol/L Carbon Dioxide Level 36 mmol/L Anion Gap 5.0 mmol/L Blood Urea Nitrogen 25 mg/dl Creatinine 0.93 mg/dl Est Creatinine Clear Calc Drug Dose 149.6 ml/min Estimated GFR () 101.6 Estimated GFR (Non- 87.7 BUN/Creatinine Ratio 26.6 Random Glucose 68 mg/dl Calcium Level 8.9 mg/dl Magnesium Level 2.3 mg/dl Bedside Glucose 74 mg/dl 92 mg/dl 136 mg/dl Test 11/10/17 15:14 11/10/17 16:13 11/10/17 20:36 Bedside Glucose 167 mg/dl 176 mg/dl 191 mg/dl Assessment and Plan This patient is a 62 yo M with a complex history of morbid obesity, CAD s/p CABG and stents, chronic lower extremity cellulitis, chronic atrial fibrillation on Xarelto, COPD with chronic respiratory failure, insulin- dependent diabetes mellitus type II, HTN, HLD, chronic diastolic CHF, CAD, severe ALLIE w/trach, who presents with shortness of breath, productive cough and hemoptysis. Found to have acute on chronic hypoxic respiratory failure, COPD exacerbation with hemoptysis, and suspected aspiration pneumonia.. Multiple admissions for COPD and CHF exacerbations, most recently from 10/15/17 - 10/21 for a COPD exacerbation, flulike symptoms, with hemoptysis and had a bronchoscopy at that time which showed evidence of aspiration. Acute on chronic hypoxic respiratory failure/COPD exacerbation/hemoptysis in the setting of anticoagulation with Xarelto-chest x-ray without definitive evidence of pneumonia. Pro-calcitonin level is negative. He was placed on Zosyn and Levaquin on admission. Unable to tolerate CT of the chest as ordered due to anxiety. PE not likely given that he is on Xarelto Appreciate pulmonary consult Hemoptysis has resolved off of Xarelto and is now known to be secondary to irritation of the distal tracheostomy tube at is is too short to appropriately fit into his trachea and is irritating the soft tissues and causing bleeding. No other source of bleeding found throughout the entire upper and lower airway on bronchoscopy Spoke with [facility] on-call ENT and hospitalist and have an accepting physician with plan to transfer for tomorrow as there were no ICU beds available tonight-needs evaluation for tracheostomy revision and given his superobesity and multiple comorbidities, he is best served at a tertiary care center for this procedure - Continue duoNebs, 02, solumedrol and taper down today to 40 mg IV every 8, mucinex, incentive spirometry, flutter valve -Discontinued Zosyn but will continue Levaquin 7 day course-last dose will be on 11/12 -Continue to hold xarelto due to hemoptysis. -Hold aspirin due to hemoptysis as well, but would restart soon as able to given his significant vascular history -With midline left upper extremity due to significantly poor venous access We will make n.p.o. after midnight tonight in preparation for transfer tomorrow in case of procedure tomorrow at [facility] on chronic diastolic CHF-has not had a right-sided heart cath, his last echo in 2016 was noted to be a very difficult study and right-sided pressures were not noted. Echocardiogram this admission shows LVEF 65%, dilated RV with reduced function, otherwise very difficult study to assess valves. I's and O's cannot be recorded as patient can only go to the bathroom in the toilet-due to body habitus, he cannot use a urinal-continues to lose weight and is now down 5 kg from admission but weight increased from yesterday - Difficult to assess volume status due to body habitus, but leg edema is the best I have ever seen it - Given IV Bumex at time of admission, continue home Bumex 2 PO QAM, metolazone 5 mg daily, prolactin 25 mg p.o. twice daily-consider IV diuretics if weight continues to trend upward -Strict I/Os, daily weights, low-sodium diet - Cont Imdur 30 mg daily, diltiazem 120 mg daily, lisinopril 10 mg daily Dizziness/headache-lasted 45 minutes and then resolved on its own. No further episodes now -He declined CT of the head and MRI brain would also not likely be feasible, plus unsure if he would fit in the machine -Holding aspirin for hemoptysis but will resume soon as possible Hyponatremia/CKD stage III-chronic is on salt tabs and diuretics, continues to improve now at 137 up from 128 on admission. Creatinine stable at 0.93 -Follow BMP -Continue salt tabs and diuretics Chronic atrial fibrillation on Xarelto-rates fairly well controlled now -Holding Xarelto as above - we will continue Diltiazem and Metoprolol DM type II, on long-term insulin, uncontrolled, hemoglobin A1c 8.9% 1 month ago , on massive amounts of insulin daily to include 233 units of Lantus split twice daily, and 265 units of NovoLog split between 3 meals - ISS with accuchecks achs -ADA diet CAD status post CABG and stents remotely - no evidence of ACS on CAD and initial labs - cont ASA, Statin, B roberta, Imdur as above Severe ALLIE with tracheostomy due to intolerance to BiPAP previously -Trach collar at nighttime Morbid obesity, BMI 64 -Has been denied gastric bypass surgery in the past Major depressive disorder, recurrent, partially in remission TREV Hx panic attack Pt with hx of suicidal and homicidal ideation however denies current ideations. - pt is unwilling to initiate any type of antidepressant at this time. Previous episode of significant SI/HI occurred with fluoxetine 20 mg around the 3rd week of treatment which was given after hospital stay in Jul 2017. - Counseling was previously unaffordable for him and he declines it at this time - Does not see a psychiatrist outpatient. Gets ativan from pulmonology per his report. Will encourage pt to have outpatient psych follow up prior to discharge , -Appreciate psychiatry consult here-no need for inpatient stay as he is not actively suicidal or homicidal -he is declining further treatment with medications-they would recommend SNRI over SSRI if willing to try again - Caution with ativan 1 mg QID for anxiety and chronic respiratory issues but continue for anxiety/claustrophobia. DVT ppx: - anticoagulation held due to hemoptysis CODE STATUS: Full code Disposition: Accepted for transfer to [facility] for tomorrow
[2017-11-11 01:51] VITALS: PULSE 95; O2SAT 98
[2017-11-11] MEDS: ALBUT/IPRATROP 3MG/0.5MG NEB 3 ML VIAL INH SCH ×2 (01:51→07:52)
[2017-11-11] MEDS: METHYLPREDNISOLONE IV 40 MG in SYRINGE 0 ML IV SCH ×2 (02:16→10:00)
[2017-11-11 03:38] VITALS: BP 134/73; PULSE 75; TEMP 37; O2SAT 98
[2017-11-11] MEDS: INSULIN ASPART 100 UNITS/ML VIAL SC SCH ×3 (07:00→12:41)
[2017-11-11 07:52] VITALS: PULSE 63; O2SAT 100
[2017-11-11 08:08] VITALS: BP 130/69; PULSE 79; TEMP 37.1; O2SAT 93
[2017-11-11 08:14] LABS: HEMATOCRIT 39.5 % (42-52); HEMOGLOBIN 13.6 g/dL (14.0-18.0); IG# 0.05 K/uL (0.00-0.02); LYMPH % 14.7 %; LYMPH ABS # 1.17 K/uL (1.2-3.4); MEAN CELL VOLUME 85.7 fL (80-100); MEAN CORPUSCULAR HEMOGLOBIN 29.5 pg (25-34); MEAN CORPUSCULAR HGB CONC 34.4 g/dl (32-36); MEAN PLATELET VOLUME 10.8 fL (7.4-10.4); MONO % 4.1 %; MONO ABS # 0.33 K/uL (0.11-0.59); NEUT % 80.6 %; NEUT ABS # 6.42 K/uL (1.4-6.5); PLATELET COUNT 183 K/uL (130-400); RED CELL DISTRIBUTION WIDTH CV 14.8 % (11.5-14.5); WHITE BLOOD COUNT 7.97 K/uL (4.8-10.8)
[2017-11-11 08:41] LABS: CALCIUM 8.7 mg/dl (8.5-10.1); CREATININE 0.97 mg/dl (0.60-1.40); POTASSIUM 3.5 mmol/L (3.5-5.1)
--- NOTE | 2017-11-11 08:55 | Pulmonology Progress Note ---
Pulmonary Progress Note Date of Service Nov 11, 2017. Attending Dr. Evans Subjective Patient was sleeping him for bleed but easily arousable this morning. Objective Patient with no signs of respiratory insufficiency at this time but does note some mild hemoptysis: PmHx: ALLIE/obesity hypoventilation-tracheostomy, cellulitis, CHF, COPD, diabetes , hyperlipidemia, morbid obesity, chronic shortness of breath/respiratory insufficiency Vital signs: Stable tracheostomy mask 6 L oxygen support Respiratory: Decreased breath sounds globally Cardiac: S1-S2 distant heart sounds unable to auscultate for murmurs rubs or gallops Abdomen: Morbidly obese but positive bowel sounds soft nontender Extremities: 1+ pitting edema with chronic stasis dermatitis Assessment & Plan 62-year-old gentleman with chronic respiratory insufficiency, ALLIE/obesity hypoventilation with tracheostomy and recurrent hemoptysis: 1. Hemoptysis: Patient's hemoptysis evaluated yesterday via bronchoscopy appears to be coming from the distal portion of the tracheostomy as the tracheostomy tube continues to rub up against the distal portion of the airway. Also the tube is noted slip in and out of position and is creating a false lumen. ENT team at [facility] has accepted transfer care to reevaluate the anastomosis and proper ET tube placement. Data Medications: Current Inpatient Medications Medications (Trade) Dose Ordered Sig/Saige Route Start Time Stop Time Status Last Admin Dose Admin Lorazepam (Ativan Inj) 1 mg Q12 PRN IV 11/06/17 18:15 12/06/17 18:14 Aspirin (Ecotrin Tab) 81 mg DAILY PO 11/07/17 09:00 12/07/17 08:59 Future Hold 11/08/17 09:08 81 MG Bumetanide (Bumex Tab) 2 mg QAM PO 11/07/17 09:00 12/07/17 08:59 11/10/17 08:34 2 MG Diltiazem HCl (Dilacor Xr Cap) 120 mg DAILY PO 11/07/17 09:00 12/07/17 08:59 11/10/17 08:34 120 MG Dorzolamide HCl (Trusopt 2% Oph Soln) 1 drops BID OP 11/06/17 21:00 12/06/17 20:59 11/10/17 21:17 1 DROPS Insulin Aspart (novoLOG ASPART) 95 units QDD SC 11/07/17 16:45 12/07/17 17:59 11/10/17 18:11 95 UNITS Insulin Aspart (novoLOG ASPART) 100 units QDB SQ 11/07/17 07:30 12/07/17 07:59 11/09/17 08:39 100 UNITS Isosorbide Mononitrate (Imdur Ext Rel Tab) 30 mg DAILY PO 11/07/17 09:00 12/07/17 08:59 11/09/17 08:31 30 MG Latanoprost (Xalatan Oph Soln) 1 drops HS OP 11/06/17 21:00 12/06/17 20:59 11/10/17 21:17 1 DROPS Lisinopril (Zestril Tab) 10 mg DAILY PO 11/07/17 09:00 12/07/17 08:59 11/09/17 08:30 10 MG Lorazepam (Ativan Tab) 1 mg QID PRN PO 11/06/17 18:15 12/06/17 18:14 11/10/17 21:16 1 MG Magnesium Oxide (Mag-Ox Tab) 400 mg TID PO 11/06/17 21:00 12/06/17 20:59 11/10/17 21:18 400 MG Metolazone (Zaroxolyn Tab) 5 mg DAILY@0700 PO 11/07/17 07:00 12/07/17 06:59 11/10/17 08:34 5 MG Metoprolol Tartrate (Lopressor Tab) 25 mg BID PO 11/06/17 21:00 12/06/17 20:59 11/10/17 21:18 25 MG Miconazole Nitrate (Desenex Powder) 1 appln BID PRN EXT 11/06/17 18:15 12/06/17 18:14 Potassium Chloride (Klor-Con Tab) 60 meq BID PO 11/06/17 21:00 12/06/17 20:59 11/10/17 21:16 60 MEQ Sodium Chloride (Sodium Chloride Tab) 1 gm DAILY PO 11/07/17 09:00 12/07/17 08:59 11/10/17 08:34 1 GM Spironolactone (Aldactone Tab) 25 mg BID17 PO 11/07/17 09:00 12/07/17 08:59 11/10/17 18:12 25 MG Tramadol HCl (Ultram Tab) 50 mg Q8H PRN PO 11/06/17 18:15 12/06/17 18:14 11/10/17 21:15 50 MG Albuterol Sulfate (Ventolin 0.083% 2.5MG/3ML Neb) 2.5 mg Q4H PRN INH 11/06/17 18:15 12/06/17 18:14 Insulin Aspart (novoLOG ASPART) 70 units QDL SC 11/07/17 11:00 12/07/17 10:59 11/09/17 12:33 70 UNITS Levofloxacin 750 mg/Prmx 150 ml @ 100 mls/hr Q24H IV 11/06/17 20:00 11/13/17 19:59 11/10/17 21:29 100 MLS/HR Acetaminophen (Tylenol Tab) 650 mg Q4H PRN PO 11/06/17 18:30 12/06/17 18:29 Al Hydrox/Mg Hydrox/Simethicone (Maalox Max Susp) 15 ml Q4H PRN PO 11/06/17 18:30 12/06/17 18:29 Magnesium Hydroxide (Milk Of Magnesia Susp) 30 ml Q12H PRN PO 11/06/17 18:30 12/06/17 18:29 Ondansetron HCl (Zofran Inj) 4 mg Q6H PRN IV 11/06/17 18:30 12/06/17 18:29 Nitroglycerin (Nitrostat Tab) 0.4 mg UD PRN SL 11/06/17 18:30 12/06/17 18:29 Morphine Sulfate (MoRPHine SULFATE INJ) 2 mg Q30M PRN IV 11/06/17 18:30 11/20/17 18:29 Polyethylene (Miralax Powder Packet) 17 gm DAILY PRN PO 11/06/17 18:30 12/06/17 18:29 Glucose (Glucose 40% Gel) 15-30 GRAMS 15 GRAMS... UD PRN PO 11/06/17 19:15 12/06/17 19:14 Glucose (Glucose Chew Tab) 4-8 Tablets 4 Tabl... UD PRN PO 11/06/17 19:15 12/06/17 19:14 Dextrose (Dextrose 50% 50ML Syringe) 25-50ML OF 50% DW IV FOR... UD PRN IV 11/06/17 19:15 12/06/17 19:14 11/10/17 07:05 25 ML Glucagon (Glucagon Inj) 1 mg UD PRN SQ 11/06/17 19:15 12/06/17 19:14 Insulin Aspart (novoLOG ASPART) SLIDING SCALE G... ACHS SC 11/07/17 11:00 12/07/17 10:59 11/10/17 21:28 11 UNITS Fluticasone Furoate (Arnuity Ellipta) 200 mcg HS INH 11/07/17 21:00 12/07/17 20:59 11/10/17 21:15 200 MCG Guaifenesin (Mucinex Contr Rel Tab) 1,200 mg Q12 PO 11/07/17 21:00 12/07/17 20:59 11/10/17 21:19 1,200 MG Loratadine (Claritin Tab) 10 mg QAM PO 11/08/17 09:00 12/08/17 08:59 11/10/17 08:34 10 MG Heparin Sodium (Porcine) (Heparin 10 Unit/ ml 5 ml Flush) 5 ml PRN PRN FLUSH 11/07/17 15:45 12/07/17 15:44 Albuterol/ Ipratropium (Duoneb) 3 ml Q6R INH 11/07/17 21:00 12/07/17 20:59 11/11/17 07:52 3 ML Insulin Glargine (Lantus Vial) 115 units QPM SC 11/08/17 21:00 12/06/17 20:59 11/10/17 21:29 115 UNITS Insulin Glargine (Lantus Vial) 118 units QAM SC 11/08/17 09:00 12/07/17 08:59 11/09/17 08:40 118 UNITS Non-Formulary Medication (Non-Formulary Patient'S Own Med) 2 ea BID INH 11/08/17 21:00 12/08/17 20:59 11/10/17 21:29 2 EA Methylprednisolone Sodium Succinate 40 mg/Syringe 0.64 ml @ 1.5 mls/min Q8H IV 11/11/17 02:00 12/11/17 01:59 11/11/17 02:16 1.5 MLS/MIN Vital Signs: Date Time Temp Pulse Resp B/P (MAP) Pulse Ox O2 Delivery O2 Flow Rate FiO2 11/11/17 08:08 37.1 79 26 130/69 (89) 93 11/11/17 07:52 63 20 100 Trach Collar 6.0 28 11/11/17 04:00 Trach Collar 6.0 28 11/11/17 03:38 37.0 75 23 134/73 (93) 98 Trach Collar 6.0 28 11/11/17 01:51 95 20 98 Trach Collar 6.0 28 11/11/17 00:00 Trach Collar 6.0 28 11/10/17 23:20 36.5 81 20 148/83 (104) 95 Room Air 11/10/17 20:09 36.7 83 20 166/75 (105) 99 11/10/17 20:00 Trach Collar 6.0 28 11/10/17 19:17 94 20 98 Trach Collar 6.0 28 11/10/17 17:45 36.8 94 20 147/89 (108) 98 Trach Collar 6.0 28 11/10/17 17:15 36.8 89 18 150/91 (110) 97 Trach Collar 6.0 28 11/10/17 16:45 36.6 79 20 165/90 (115) 98 Trach Collar 6.0 28 11/10/17 16:15 36.6 91 16 179/68 (105) 100 Trach Collar 6.0 28 11/10/17 16:00 100 Free Flow/Blowby 6.0 28 11/10/17 15:45 36.6 79 14 141/52 100 Free Flow/Blowby 11/10/17 15:35 36.6 78 14 151/66 99 Free Flow/Blowby 11/10/17 15:25 78 14 139/100 98 Free Flow/Blowby 11/10/17 15:15 79 14 120/66 98 Free Flow/Blowby 11/10/17 15:05 36.6 83 14 149/58 97 Free Flow/Blowby 11/10/17 12:00 Room Air 28 Trach Collar 11/10/17 11:33 36.7 76 24 166/72 (103) 98 Trach Collar 6.0 28 Laboratory Results: Last 24 Hours Test 11/10/17 11:24 11/10/17 15:14 4/9/18 16:13 11/10/17 20:36 Bedside Glucose 136 mg/dl 167 mg/dl 176 mg/dl 191 mg/dl Test 11/11/17 06:46 11/11/17 08:03 Bedside Glucose 109 mg/dl White Blood Count 7.97 K/uL Red Blood Count 4.61 M/uL Hemoglobin 13.6 g/dL Hematocrit 39.5 % Mean Corpuscular Volume 85.7 fL Mean Corpuscular Hemoglobin 29.5 pg Mean Corpuscular Hemoglobin Concent 34.4 g/dl Platelet Count 183 K/uL Mean Platelet Volume 10.8 fL Neutrophils (%) (Auto) 80.6 % Lymphocytes (%) (Auto) 14.7 % Monocytes (%) (Auto) 4.1 % Eosinophils (%) (Auto) 0.0 % Basophils (%) (Auto) 0.0 % Neutrophils # (Auto) 6.42 K/uL Lymphocytes # (Auto) 1.17 K/uL Monocytes # (Auto) 0.33 K/uL Eosinophils # (Auto) 0.00 K/uL Basophils # (Auto) 0.00 K/uL RDW Standard Deviation 46.0 fL RDW Coefficient of Variation 14.8 % Immature Granulocyte % (Auto) 0.6 % Immature Granulocyte # (Auto) 0.05 K/uL Sodium Level 136 mmol/L Potassium Level 3.5 mmol/L Chloride Level 96 mmol/L Carbon Dioxide Level 31 mmol/L Anion Gap 9.0 mmol/L Blood Urea Nitrogen 28 mg/dl Creatinine 0.97 mg/dl Est Creatinine Clear Calc Drug Dose 142.1 ml/min Estimated GFR () 96.6 Estimated GFR (Non- 83.3 BUN/Creatinine Ratio 29.3 Random Glucose 105 mg/dl Calcium Level 8.7 mg/dl Magnesium Level 2.5 mg/dl
[2017-11-11] MEDS: DORZOLAMIDE HCL 2% OPH SOLN 10 ML BTL OP SCH (10:00)
[2017-11-11] MEDS: QNASL INH SCH (10:01)
[2017-11-11] MEDS: ISOSORBIDE MONONITRATE 30 MG TABCR PO SCH (10:01)
[2017-11-11] MEDS: LISINOPRIL 10 MG TAB PO SCH (10:01)
[2017-11-11] MEDS: DILTIAZEM HCL 120 MG ER CAP PO SCH (10:01)
[2017-11-11] MEDS: SPIRONOLACTONE 25 MG TAB PO SCH (10:01)
[2017-11-11] MEDS: LORATADINE 10 MG TAB PO SCH (10:02)
[2017-11-11] MEDS: METOPROLOL TARTRATE 25 MG TAB PO SCH (10:02)
[2017-11-11] MEDS: BUMETANIDE 1 MG TAB PO SCH (10:02)
[2017-11-11] MEDS: SODIUM CHLORIDE 1 GM TAB PO SCH (10:02)
[2017-11-11] MEDS: GUAIFENESIN 600 MG TABCR PO SCH (10:03)
[2017-11-11] MEDS: MAGNESIUM OXIDE 400 MG TAB PO SCH (10:03)
[2017-11-11] MEDS: POTASSIUM CHLORIDE 20 MEQ TABCR PO SCH (10:03)
[2017-11-11] MEDS: METOLAZONE 5 MG TAB PO SCH (10:04)
[2017-11-11] MEDS: INSULIN ASPART 100 UNITS/ML VIAL SQ SCH (10:05)
[2017-11-11] MEDS: INSULIN GLARGINE SC SCH (10:05)
--- NOTE | 2017-11-11 10:38 | Discharge Summary ---
Discharge Summary Date of Service Nov 11, 2017. 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 Long-term anticoagulation Acute on chronic combined right-sided systolic and diastolic CHF Dizziness Tension type headache Hyponatremia CKD stage III Chronic atrial fibrillation DM type II, on long-term insulin, uncontrolled, hemoglobin A1c 8.9%, on massive amounts of insulin daily Major depressive disorder, recurrent, partially in remission TREV Panic disorder Immunizations: Have You Had Influenza Vaccine: Yes History of Pneumococcal: Yes Procedures: Bronchoscopy Chest x-ray Echocardiogram Consultations: Pulmonology Medication Reconciliation New Medications: Levofloxacin in D5w (Levofloxacin in 5% Dextro 750 mg/150Ml) 1 Inj Inj 750 MG IV DAILY for 3 Days Methylprednisolone Sod Succ (Solu-Medrol) 40 Mg/1 Ml Inj 40 MG IV Q8 for 3 Days Albuterol Sulf (Albuterol Sulfate) 2.5 Mg/3 Ml Nebu 2.5 MG INH Q4H PRN for Shortness of Breath for 30 Days Continued Medications: Albuterol Hfa (Ventolin Hfa) 200 Puffs/16203 Mcg Aers 1 PUFFS INH QID PRN for SOB/Wheezing, INHALER Atorvastatin (Lipitor) 80 Mg Tab 80 MG PO DAILY, TAB Beclomethasone Dipropionate (N (Qnasl) 80 Mcg/Act Aer 1 SPRY SIMBA DAILY, GM Bumetanide (Bumetanide) 1 Mg Tab 2 MG PO QAM for 30 Days, #30 DOSE Desloratadine (Clarinex) 5 Mg Tab 5 MG PO DAILY, TAB Dextromethorphan-Guaifenesin (Mucinex Dm Maximum Streng) 1 Tab Tab 1 TAB PO BID for 10 Days, #20 TAB 1 Refill Diltiazem Hcl (Diltiazem Hcl Er) 120 Mg Cap 1 CAP PO DAILY Dorzolamide Hcl (Trusopt Oph) 2 % Vanessa 1 DROPS OP BID, ML Fish Oil ([place]-3) 1 Ea Cap 1 CAP PO DAILY, CAP Fluticasone Furoate (Inhalatio (Arnuity Ellipta) 200 Mcg/Act Inh 1 PUFF INH DAILY Glucagon (Glucagon Emergency Kit) 1 Mg Kit 1 DOSE INJ UD Guaifenesin (Mucinex Maximum Strength) 1,200 Mg Tab 1200 MG PO BID, TAB Insulin Aspart (Novolog Flexpen) 100 Units/Ml Inj 100 UNITS SQ BREAKFAST over 200 +4 over 250 +8 over 300 +10 Insulin Aspart (Novolog Flexpen) 100 Units/Ml Inj 70 UNITS SC LUNCH over 200 +4 over 250 +8 over 300 +10 Insulin Aspart (Novolog Flexpen) 100 Units/Ml Inj 95 UNITS SC DINNER over 200 +4 over 250 +8 over 300 +10 Insulin Glargine (Lantus Solostar) 100 Unit/Ml Inj 118 SC QAM Insulin Glargine (Lantus Solostar) 100 Unit/Ml Inj 115 SC QPM Ipratropium-Albuterol (Duoneb) 3 Ml Nebu 1 TREATMENT INH Q4H, INHA Isosorbide Mononitrate (Isosorbide Mononitrate ER) 30 Mg Tabcr 30 MG PO DAILY Latanoprost (Xalatan 0.005% Oph Vanessa) 0.005 % Vanessa 1 DROPS OP HS, ML Lisinopril (Zestril) 10 Mg Tab 10 MG PO DAILY, TAB Lorazepam (Lorazepam) 1 Mg Tab 1 MG PO QID PRN for Anxiety Magnesium Oxide (Mag-Ox) 400 Mg Tab 400 MG PO TID, TAB Metolazone (Zaroxolyn) 5 Mg Tab 5 MG PO DAILY, TAB Metoprolol Tartrate (Lopressor) (Lopressor) 25 Mg Tab 25 MG PO BID, TAB Miconazole Nitrate (Desenex Shake Powder) 43 Appln/43 Gm Powd 1 APPLN EXT BID PRN for ABDOMINAL/GROIN FOLDS for 30 Days Multivitamins/Minerals (Mvi With Minerals) Tab 1 TAB PO DAILY, TAB Nitroglycerin (Nitrostat) 0.4 Mg Tab 1 TAB SL UD, TAB Potassium Ext Rel (Klor-Con) 20 Meq Tabcr 3 TAB PO BID, TAB Sodium Chloride (Sodium Chloride) 1 Gm Tab 1 GM PO DAILY Spironolactone (Aldactone) 25 Mg Tab 25 MG PO BID, TAB Tramadol (Ultram) 50 Mg Tab 50 MG PO Q8H PRN for Pain, TAB Discontinued Medications: Amoxicillin & Pot Clavulanate (Augmentin 875-125 mg) 1 Tab Tab 1 TAB PO BID, #14 TAB Aspirin (Aspirin 81) 81 Mg Tab 81 MG PO DAILY Rivaroxaban (Xarelto) 20 Mg Tab 20 MG PO DAILY Discharge Exam Patient feels his breathing is a little bit better since the bronchoscopy yesterday. He remains on and off his trach collar. Had a few specks of blood in his trach inner cannula today. Still coughing sputum. Telemetry with atrial fibrillation with rates from the mid 50s to the 80s. Physical Exam General Appearance: no apparent distress, + obese (Morbidly) Eyes: normal inspection, sclerae normal ENT: hearing grossly normal Neck: trachea midline with tracheostomy tube in place and trach collar with 6 L of oxygen on Respiratory/Chest: no respiratory distress, no accessory muscle use, + decreased breath sounds (Diminished throughout secondary to body habitus), slightly improved air movement and less wheezing since bronchoscopy Cardiovascular: no murmur, + irregularly irregular (With normal rate) Abdomen: normal bowel sounds, non tender, soft Extremities: + swelling (1+ pitting edema right greater than left legs but with wrinkled skin and significantly improved from previous hospital stays, with chronic venous stasis changes of the right leg only) Neurologic/Psychiatric: alert, oriented x 3, + depressed affect Skin: warm/dry Review of Systems: Constitutional: No fever, No chills Eyes: No problem reported ENT: No problem reported Respiratory: + cough, + sputum, + dyspnea on exertion Cardiovascular: No chest pain Abdomen: No pain, No nausea, No vomiting, No diarrhea, No constipation Musculoskeletal: No problem reported Genitourinary - Male: No problem reported Neurologic: No problem reported Psychiatric: + anxiety Endocrine: No problem reported Hematologic / Lymphatic: No problem reported Integumentary: No problem reported Hospital Course This patient is a 62 yo M with a complex history of morbid obesity, CAD s/p CABG and stents, chronic lower extremity cellulitis, chronic atrial fibrillation on Xarelto, COPD with chronic respiratory failure, insulin- dependent diabetes mellitus type II, HTN, HLD, chronic diastolic CHF, CAD, severe ALLIE w/trach, who presents with shortness of breath, productive cough and hemoptysis. Found to have acute on chronic hypoxic respiratory failure, COPD exacerbation with hemoptysis, and suspected aspiration pneumonia.. Multiple admissions for COPD and CHF exacerbations, most recently from 10/15/17 - 10/21 for a COPD exacerbation, flulike symptoms, with hemoptysis and had a bronchoscopy at that time which showed evidence of aspiration, but no source of bleeding. Acute on chronic hypoxic respiratory failure/COPD exacerbation/hemoptysis in the setting of anticoagulation with Xarelto-chest x-ray without definitive evidence of pneumonia. Pro-calcitonin level is negative. He was placed on Zosyn and Levaquin on admission. Unable to tolerate CT of the chest as ordered due to anxiety. PE not likely given that he is on Xarelto Appreciate pulmonary consult Hemoptysis has resolved for the most part off of Xarelto and is now known to be secondary to irritation of the distal tracheostomy tube at is is too short to appropriately fit into his trachea and is irritating the soft tissues and causing bleeding. No other source of bleeding found throughout the entire upper and lower airway on bronchoscopy Spoke with [facility] on-call ENT and hospitalist and have an accepting physician with plan to transfer today-needs evaluation for tracheostomy revision and given his superobesity and multiple comorbidities, he is best served at a tertiary care center for this procedure - Continue duoNebs, 02, solumedrol and taper down, currently at 40 mg IV every 8 , -Continue Mucinex, incentive spirometry, flutter valve -Discontinued Zosyn but will continue Levaquin 7 day course-last dose will be on 11/12 -Continue to hold xarelto due to hemoptysis. -Hold aspirin due to hemoptysis as well, but would restart soon as able to given his significant vascular history -With midline left upper extremity due to significantly poor venous access -is n.p.o. after breakfast today Acute on chronic diastolic CHF-has not had a right-sided heart cath, his last echo in 2016 was noted to be a very difficult study and right-sided pressures were not noted. Echocardiogram this admission shows LVEF 65%, dilated RV with reduced function, otherwise very difficult study to assess valves. I's and O's cannot be recorded as patient can only go to the bathroom in the toilet-due to body habitus, he cannot use a urinal-continues to lose weight and is now down 8 kg from admission - Difficult to assess volume status due to body habitus, but leg edema is the best I have ever seen it - Given IV Bumex at time of admission, continue home Bumex 2 PO QAM, metolazone 5 mg daily, prolactin 25 mg p.o. twice daily-consider IV diuretics if weight trends upward -Strict I/Os, daily weights - Cont Imdur 30 mg daily, diltiazem 120 mg daily, lisinopril 10 mg daily Dizziness/headache-lasted 45 minutes and then resolved on its own. No further episodes now -He declined CT of the head and MRI brain would also not likely be feasible, plus unsure if he would fit in the machine -Holding aspirin for hemoptysis but will resume soon as possible Hyponatremia/CKD stage III-chronic is on salt tabs and diuretics, likely on the basis of hypoperfusion from diastolic CHF but possibly with some SIADH? -Continues to improve now at 136 up from 128 on admission. Creatinine stable at 0.97 -Follow BMP -Continue salt tabs and diuretics Chronic atrial fibrillation on Xarelto-rates fairly well controlled now -Holding Xarelto as above - we will continue Diltiazem and Metoprolol DM type II, on long-term insulin, uncontrolled, hemoglobin A1c 8.9% 1 month ago , on massive amounts of insulin daily to include 233 units of Lantus split twice daily, and 265 units of NovoLog split between 3 meals - ISS with accuchecks achs -ADA diet CAD status post CABG and stents remotely - no evidence of ACS on CAD and initial labs - cont ASA, Statin, B roberta, Imdur as above Severe ALLIE with tracheostomy due to intolerance to BiPAP previously -Trach collar at nighttime Morbid obesity, BMI 64 -Has been denied gastric bypass surgery in the past Major depressive disorder, recurrent, partially in remission TREV Hx panic attack Pt with hx of suicidal and homicidal ideation however denies current ideations. - pt is unwilling to initiate any type of antidepressant at this time. Previous episode of significant SI/HI occurred with fluoxetine 20 mg around the 3rd week of treatment which was given after hospital stay in Jul 2017. - Counseling was previously unaffordable for him and he declines it at this time - Does not see a psychiatrist outpatient. Gets ativan from pulmonology per his report. Will encourage pt to have outpatient psych follow up prior to discharge , -Appreciate psychiatry consult here-no need for inpatient stay as he is not actively suicidal or homicidal -he is declining further treatment with medications-they would recommend SNRI over SSRI if willing to try again - Caution with ativan 1 mg QID for anxiety and chronic respiratory issues but continue for anxiety/claustrophobia. DVT ppx: - anticoagulation held due to hemoptysis CODE STATUS: Full code Disposition: Accepted for transfer to [facility] today Total Time Spent: Greater than 30 minutes This includes examination of the patient, discharge planning, medication reconciliation, and communication with other providers. Discharge Instructions Please refer to the electronic Patient Visit Report (Discharge Instructions) for additional information. Follow-Up With PCP and pulmonology after discharge from [place] Additional Copies To Gustavo Flores M.D.; Christofer Hanley DO; Freddie Evans MD
[2017-11-11] MEDS: TRAMADOL HCL 50 MG TAB PO PRN (11:28)
[2017-11-11] MEDS: LORAZEPAM 1 MG TAB PO PRN (11:28)
[2017-11-11 11:55] VITALS: BP 166/76; PULSE 79; TEMP 37.5; O2SAT 97
[2017-11-11 11:59] VITALS: BP 130/69; PULSE 79; TEMP 37.1; O2SAT 93
== END 2017-11-11 13:45 | disposition short-term general hospital (02) | DRG 189 ==
LOC: C.EDC 14:17 → C.2T 18:28 → ENRESERV 18:39
PROVIDERS: ADMIT Internal Medicine; ATTEND Family Medicine
DX: J96.21 Acute and chronic respiratory failure with hypoxia (principal); I50.33 Acute on chronic diastolic (congestive) heart failure; J18.9 Pneumonia, unspecified organism; J44.1 Chronic obstructive pulmonary disease with (acute) exacerbation; D68.32 Hemorrhagic disorder due to extrinsic circulating anticoagulants; L03.116 Cellulitis of left lower limb; Z68.44 Body mass index [BMI] 60.0-69.9, adult; E87.1 Hypo-osmolality and hyponatremia; E11.9 Type 2 diabetes mellitus without complications; E78.5 Hyperlipidemia, unspecified; E66.01 Morbid (severe) obesity due to excess calories; Z83.3 Family history of diabetes mellitus; Z82.49 Family history of ischemic heart disease and other diseases of the circulatory system; Z79.82 Long term (current) use of aspirin; Z79.4 Long term (current) use of insulin; Z87.891 Personal history of nicotine dependence; I25.10 Atherosclerotic heart disease of native coronary artery without angina pectoris; I48.2 Chronic atrial fibrillation; I27.81 Cor pulmonale (chronic); G47.33 Obstructive sleep apnea (adult) (pediatric); F32.9 Major depressive disorder, single episode, unspecified; F41.1 Generalized anxiety disorder